=== PATIENT | male | born 1960 | race Caucasian/White ===

== ENCOUNTER 2018-08-15 18:43 | Inpatient (IN) | payer MEDICARE, OTHER ==
[~2018-08-15] VITALS: Ht 165.1 cm; Wt 66.0 kg
[2018-08-15] MEDS ORDERED: CARV6.2579 PO (20:28)
[2018-08-15] MEDS ORDERED: LOSA50TA14 PO (20:28)
[2018-08-15] MEDS ORDERED: CLON-379 PO (20:28)
[2018-08-15] MEDS ORDERED: SEVE800T7 PO (20:28)
[2018-08-15] MEDS ORDERED: TAMS0.4C2 PO (20:28)
[2018-08-15] MEDS ORDERED: NIFE90TA11 PO (20:28)
[2018-08-15] MEDS ORDERED: ISOS60TA PO (20:28)
[2018-08-15] MEDS ORDERED: MINO2.5T16 PO (20:28)
[2018-08-15] MEDS ORDERED: ATRO10DR OP (20:28)
[2018-08-15] MEDS ORDERED: FAMO20TA18 PO (20:28)
[2018-08-15] MEDS ORDERED: NICARDipine HCL 30 MG CAPSULE PO ONE (22:00)
[2018-08-15] MEDS ORDERED: SODIUM POLYSTYRENE 15 GM KIT (POWDER + SORBITOL) PO STA (22:58)
[2018-08-15] MEDS ORDERED: INSULIN REGULAR, HUMAN 100 UNIT/1 ML 3ML VIAL IVP STA (22:58)
[2018-08-15] MEDS ORDERED: ALBUTEROL 0.5% (NEB) 2.5 MG/0.5 ML AMP INH STA (22:58)
--- NOTE | 2018-08-15 22:58 | ERD ---
ER Documentation Chief Complaint Chief Complaint cough x2 months worse today. +eye discharge HPI 57-year-old male with a history of hypertension, diabetes, blindness, ESRD on hemodialysis presenting with nasal congestion, bilateral earache, and cough that started this morning. Per his family member at bedside, he has been coughing for the past 3 weeks without phlegm production or hemoptysis. No associated fevers or chills. No chest pain or shortness of breath. He had his last dialysis today. ROS All systems reviewed and are negative except as per history of present illness. Medications Home Meds Reported Medications Nifedipine* (Nifedipine ER*) 90 Mg Tablet.er, 90 MG PO DAILY, TAB 08/15/18 Carvedilol* (Carvedilol*) 6.25 Mg Tablet, 6.25 MG PO BID, #60 TAB 08/15/18 Isosorbide Mononitrate* (Isosorbide Mononitrate*) 60 Mg Tab.er.24h, 60 MG PO DAILY, TAB 08/15/18 Losartan Potassium* (Losartan Potassium*) 50 Mg Tablet, 50 MG PO DAILY, TAB 08/15/18 Minoxidil* (Lonitin*) 2.5 Mg Tab, 2.5 MG PO BID, TAB 08/15/18 Famotidine* (Famotidine*) 20 Mg Tablet, 20 MG PO BID, #60 TAB 08/15/18 Atropine Sulfate/0.9 %Sod Chlr (Atropine 0.01%-Ns Eye Drops) 10 Ml Drops, 15 ML OP BID, BOTTLE 08/15/18 Tamsulosin Hcl* (Tamsulosin Hcl*) 0.4 Mg Cap.er.24h, 0.4 MG PO DAILY, CAP 08/15/18 Clonidine Hcl* (Clonidine Hcl*) 0.1 Mg Tab, 0.2 MG PO BID PRN for ELEVATED BLOOD PRESSURE, TAB 08/15/18 Sevelamer Carbonate* (Renvela*) 800 Mg Tablet, 0.8 GM PO WITH MEALS, TAB 08/15/18 Allergies Allergies: Coded Allergies: hydralazine (Verified Allergy, Unknown, 08/15/18) simvastatin (Verified Allergy, Unknown, 08/15/18) PMhx/Soc History of Surgery: Yes (OPEN HEART SURGERY) Hx Cardiac Disorders: Yes (HTN, CAD, [place]) Hx Miscellaneous Medical Probl: Yes (DM, ESRD) Hx Alcohol Use: No Hx Substance Use: No Hx Tobacco Use: No Smoking Status: Never smoker FmHx Family History: No diabetes Physical Exam Vitals Vital Signs Date Temp Pulse Resp B/P (MAP) Pulse Ox O2 O2 Flow FiO2 Time Delivery Rate 08/15/18 60 20 96 21 23:15 08/15/18 64 32 185/79 100 Room Air 20:16 (114) 08/15/18 97.2 64 22 224/94 98 19:32 (137) Physical Exam Const: No acute distress. Ill-appearing but nontoxic Head: Atraumatic Eyes: Conjunctival injection with yellow discharge from the corners of bilateral eyes ENT: Normal External Ears, Nose and Mouth. TMs normal bilaterally. External canals normal bilaterally. Rhinorrhea. Neck: Full range of motion. No meningismus. No JVD Resp: Clear to auscultation bilaterally with no wheezing, rales, or rhonchi Cardio: Regular rate and rhythm, no murmurs Abd: Soft, non tender, non distended. Normal bowel sounds Skin: No petechiae or rashes Back: No midline or flank tenderness Ext: No cyanosis, or edema Neur: Awake and alert, normal speech, no facial asymmetry, moving all extremities Psych: Normal Mood and Affect Result Diagram: 08/15/18215508/15/182155 Results 24 hrs Laboratory Tests Test 08/15/18 21:56 08/15/18 23:32 08/16/18 00:16 White Blood Count 5.1 10^3/ul Red Blood Count 4.05 10^6/ul Hemoglobin 12.1 g/dl Hematocrit 37.3 % Mean Corpuscular Volume 92.1 fl Mean Corpuscular Hemoglobin 29.9 pg Mean Corpuscular 32.4 g/dl Hemoglobin Concent Red Cell Distribution Width 14.0 % Platelet Count 125 10^3/UL Mean Platelet Volume 10.0 fl Immature Granulocytes % 0.200 % Neutrophils % 65.6 % Lymphocytes % 16.1 % Monocytes % 8.4 % Eosinophils % 9.3 % Basophils % 0.4 % Nucleated Red Blood Cells % 0.0 /100WBC Immature Granulocytes # 0.010 10^3/ul Neutrophils # 3.4 10^3/ul Lymphocytes # 0.8 10^3/ul Monocytes # 0.4 10^3/ul Eosinophils # 0.5 10^3/ul Basophils # 0.0 10^3/ul Nucleated Red Blood Cells # 0.0 10^3/ul Sodium Level 137 mmol/L Potassium Level 6.3 mmol/L Chloride Level 102 mmol/L Carbon Dioxide Level 23 mmol/L Anion Gap 12 Blood Urea Nitrogen 57 mg/dl Creatinine 8.68 mg/dl Est Glomerular Filtrat Rate mL/min 6 mL/min Glucose Level 110 mg/dl Calcium Level 8.8 mg/dl Bedside Glucose 126 mg/dL 297 mg/dL Current Medications Medications Dose Sig/Katina Start Time Status Last (Trade) Ordered Route PRN Stop Time Admin Dose Reason Admin Nicardipine 30 mg ONCE ONCE 08/15/18 DC HCl PO 22:00 (Cardene) 08/15/18 22:01 Sodium 30 gm ONCE STAT 08/15/18 DC Polystyrene PO 22:58 Sulfonate 08/15/18 22:59 (Kayexelate 15 Gm Kit (Powder+Sorbi riya)) Albuterol 15 mg ONCE STAT 08/15/18 DC 08/15/18 (Proventil INH 22:58 23:12 0.5% (Neb)) 08/15/18 23:00 Insulin 10 unit ONCE STAT 08/15/18 DC 08/15/18 Human IVP 22:58 23:49 Regular 08/15/18 23:00 (Humulin R) Dextrose ONCE PRN 08/15/18 08/15/18 (D50w IV DECREASED 23:00 23:48 Syringe) GLUCOSE Dextrose 50 ml ONCE ONCE 08/15/18 DC 08/15/18 (D50w IV 23:00 23:48 Syringe) 08/15/18 23:01 Procedures/MDM EMERGENT LABS AND DIAGNOSTIC STUDIES: Lab Results above were reviewed and interpreted by me. CBC: Mild thrombocytopenia. No evidence of anemia or infection BMP: Evidence of renal failure with hyperkalemia. No evidence of acidosis. Influenza negative 12-lead EKG was interpreted by Joe Burnette MD: Sinus bradycardia 59 bpm Incomplete right bundle branch block No evidence of hyperkalemia. No acute ST or T wave changes suggestive of acute ischemia or STEMI. Radiology Results as interpreted by Radiology below were reviewed by Jarek Burnette MD: Chest x-ray: IMPRESSION: Mild cardiomegaly. Mild pulmonary vascular congestion. Calcified aorta consistent with atherosclerotic disease. 3.8 cm right lower lobe nodular opacity. Follow-up CT chest is recommended. Initial Nursing notes reviewed. Previous Medical Records requested via the Electronic Health Record. EMERGENCY DEPARTMENT COURSE / MEDICAL DECISION MAKING: Patient is presenting with complaints of congestion and cough. Vitals were nota ble for hypertension but otherwise he was afebrile. Labs showed evidence of ESRD with hyperkalemia despite hemodialysis today. Chest x-ray shows evidence of pulmonary vascular congestion and a right pulmonary nodule that is suspicious for possible malignancy. Hyperkalemia was treated with albuterol nebulized, IV insulin, IV dextrose, and Kayexalate. EKG did not have changes consistent with hyperkalemia. Patient will be admitted for further workup and treatment. I do not suspect serious bacterial infection. He likely has a viral URI. With regard to his pulmonary nodule, I will defer this to the inpatient team for workup as the patient will need contrast and dialysis soon after that. Critical Care Time: 35 minutes Treatments/Evaluations: Close monitoring and treatment of unstable vital signs, cardiorespiratory, and neurologic status, while maintaining tight balance of fluid, respiratory, and cardiac interventions. This time includes discussing the case with the patient and the patients family. This time does not include all procedures stated elsewhere in this record. This time also includes reviewing old records, labs and radiological studies. This time includes examining and re- examining the patient. Additionally, this time also includes arranging care with admitting and consulting physicians. Accepting Care Team: Current data and ongoing care discussed. Time: Time of admission Primary Provider: Dr. Huddleston Outstanding Data: none Departure Diagnosis: Primary Impression: Hyperkalemia Additional Impressions: URI (upper respiratory infection) URI type: unspecified URI Qualified Codes: J06.9 - Acute upper respiratory infection, unspecified Chronic cough Nodule of right lung Condition: Serious IRIS BURNETTE MD Aug 15, 2018 22:57
[2018-08-15] MEDS ORDERED: DEXTROSE 50% 50 ML SYRINGE IV ONE (23:00)
[2018-08-15] MEDS ORDERED: DEXTROSE 50% 50 ML SYRINGE IV PRN (23:00)
[2018-08-16] VITALS (23 sets, daily range): BP systolic 146–213; BP diastolic 72–94; PULSE 60–70; RESP 20–22; Ht 165.1 cm; Wt 66.0 kg
[2018-08-16] MEDS ORDERED: ACETAMINOPHEN 325 MG TAB PO PRN (02:30)
[2018-08-16] MEDS: MINOXIDIL 2.5 MG TAB PO SCH ×2 (08:12→20:08)
[2018-08-16] MEDS: ATROPINE 1% 5 ML OPH BOTH EYES SCH ×2 (08:12→20:09)
[2018-08-16] MEDS: FAMOTIDINE 20 MG TAB PO SCH ×2 (08:13→20:08)
[2018-08-16] MEDS: LOSARTAN 50 MG TAB PO SCH (08:13)
[2018-08-16] MEDS ORDERED: NIFEdipine (XL) 90 MG TAB PO SCH ×2 (09:00→21:00)
[2018-08-16] MEDS: ISOSORBIDE MONONITRATE(SR)60 MG TAB PO SCH (10:55)
[2018-08-16] MEDS ORDERED: BARIUM SULF 2% 450 ML BTL (BERRY SMOOTHIE) PO ONE (11:30)
[2018-08-16] MEDS ORDERED: VANCOMYCIN IV PER PHARMACY XX SCH (11:30)
--- NOTE | 2018-08-16 11:43 | CONS ---
Assessment/Plan Assessment/Plan Hospital Course (Demo Recall) 1. Hypertensive urgency/resistant hypertension 2. History of coronary artery disease 3. History of most likely SD and coronary artery bypass graft 4. Renal failure on dialysis 5. Pulmonary vascular congestion/fluid overload 6. Diabetes 7. Dyslipidemia 8. Hyperkalemia Recommendations: Continue with the Coreg Procardia. Clonidine will be continued as a as needed as well. Labs will be checked again stat now. Patient may need to be dialyzed again today given his hyperkalemia and fluid overload hypertension Echocardiogram will be checked Lipid panel will be checked tomorrow Hemodialysis as per renal workup of abnormal chest x-ray finding as per oncology and pulmonary consultants Thank you for his referral. We will continue to follow along with you NAHUN RUSSELL MD [facility] Consultation Date/Type/Reason Admit Date/Time Aug 16, 2018 at 00:15 Date of Consultation: Aug 16, 2018 Type of Consult Cardiology Reason for Consultation HTN Requesting Provider: COREY SARAVIA Date/Time of Note DATE: 08/16/18 TIME: 11:37 Hx of Present Illness Interventional cardiology consultation note Chief complaint: Cough Reason for consult: Coronary artery disease, hypertension History of present illness: Thank you for this referral. History was obtained from the patient who is a poor historian from discussion with physician staff. This is a unfortunate 57-year-old gentleman with history of renal failure on dialysis diabetes coronary artery disease status post coronary bypass graft who came to emergency room last night with complaint of shortness of breath and cough mostly. Patient is blind and is unable to exactly what color his sputum was but instead he has been coughing the past couple of days. Also states that his sister told him that his sputum was blood-tinged as well. He denies any chest pain or pressure to me denies any PND orthopnea to me. His blood pressure has been markedly elevated above 200. He denies any headache with it. Patient is a poor historian General Allergies: Reported to hydralazine and simvastatin details unclear Medications were reviewed as per medical reconciliation sheet Family history: Denies any history of early coronary artery disease Social history: Denies any tobacco alcohol drug abuse He said that his sister put his medication for him when he takes them Past medical history: Coronary artery disease status post SD probably status post bypass surgery probably about a year ago per his report unclear how many vessels were bypassed Hypertension Diabetes over 20 years Dyslipidemia Blindness most likely diabetic retinopathy Renal failure on hemodialysis over the past 4-5 years Review of system: Patient denies all others except for above-mentioned Past Medical History Home Meds Reported Medications Nifedipine* (Nifedipine ER*) 90 Mg Tablet.er, 90 MG PO DAILY, TAB 08/15/18 Carvedilol* (Carvedilol*) 6.25 Mg Tablet, 6.25 MG PO BID, #60 TAB 08/15/18 Isosorbide Mononitrate* (Isosorbide Mononitrate*) 60 Mg Tab.er.24h, 60 MG PO DAILY, TAB 08/15/18 Losartan Potassium* (Losartan Potassium*) 50 Mg Tablet, 50 MG PO DAILY, TAB 08/15/18 Minoxidil* (Lonitin*) 2.5 Mg Tab, 2.5 MG PO BID, TAB 08/15/18 Famotidine* (Famotidine*) 20 Mg Tablet, 20 MG PO BID, #60 TAB 08/15/18 Atropine Sulfate/0.9 %Sod Chlr (Atropine 0.01%-Ns Eye Drops) 10 Ml Drops, 15 ML OP BID, BOTTLE 08/15/18 Tamsulosin Hcl* (Tamsulosin Hcl*) 0.4 Mg Cap.er.24h, 0.4 MG PO DAILY, CAP 08/15/18 Clonidine Hcl* (Clonidine Hcl*) 0.1 Mg Tab, 0.2 MG PO BID PRN for ELEVATED BLOOD PRESSURE, TAB 08/15/18 Sevelamer Carbonate* (Renvela*) 800 Mg Tablet, 0.8 GM PO WITH MEALS, TAB 08/15/18 Medications Current Medications Dextrose (D50w Syringe) ONCE PRN IV DECREASED GLUCOSE Last administered on 08/15/18at 23:48; Admin Dose 50 ML; Start 08/15/18 at 23:00 Zolpidem Tartrate (Ambien) 5 mg HS PRN PO INSOMNIA; Start 08/16/18 at 02:30 Acetaminophen (Tylenol Tab) 650 mg Q4H PRN PO MILD PAIN(1-3)OR ELEVATED TEMP; Start 08/16/18 at 02:30 Atropine Sulfate (Atropine 1% Oph) 1 drop BID BOTH EYES Last administered on 08/16/18at 08:12; Admin Dose 1 DROP; Start 08/16/18 at 09:00 Famotidine (Pepcid) 20 mg BID PO Last administered on 08/16/18 08:13; Admin Dose 20 MG; Start 08/16/18 at 09:00 Minoxidil (Loniten) 2.5 mg BID PO Last administered on 08/16/18at 08:12; Admin Dose 2.5 MG; Start 08/16/18 at 09:00 Losartan Potassium (Cozaar) 50 mg DAILY PO Last administered on 08/16/18 08:13; Admin Dose 50 MG; Start 08/16/18 at 09:00 Carvedilol (Coreg) 6.25 mg BID PO Last administered on 08/16/18 08:12; Admin Dose 6.25 MG; Start 08/16/18 at 09:00 Nifedipine (Procardia Xl) 90 mg DAILY PO Last administered on 08/16/18 08:19; Admin Dose 90 MG; Start 08/16/18 at 09:00 Clonidine (Catapres) 0.1 mg Q4H PRN PO ELEVATED BLOOD PRESSURE Last administered on 08/16/18at 09:53; Admin Dose 0.1 MG; Start 08/16/18 at 08:30 Isosorbide Mononitrate (Imdur) 60 mg DAILY PO Last administered on 08/16/18at 10:55; Admin Dose 60 MG; Start 08/16/18 at 11:00 Vancomycin HCl (Vanco Iv Per Pharmacy) VANCOMYCIN PER PHARMACY PER PROTOCOL XX ; Start 08/16/18 at 11:30 Piperacillin Sod/ Tazobactam Sod 50 ml @ 200 mls/hr Q8 IVPB ; Start 08/16/18 at 14:00 Vancomycin HCl 1.5 gm/Sodium Chloride 250 ml @ 83.333 mls/ hr ONCE IVPB ; Start 08/16/18 at 13:00; Stop 08/16/18 at 15:59 Allergies: Coded Allergies: hydralazine (Verified Allergy, Unknown, 08/15/18) simvastatin (Verified Allergy, Unknown, 08/15/18) Social History Smoking Status: Never smoker Exam/Review of Systems Vital Signs Vitals Vital Signs Date Temp Pulse Resp B/P (MAP) Pulse Ox O2 O2 Flow FiO2 Time Delivery Rate 08/16/18 181/84 10:50 (116) 08/16/18 67 08:35 08/16/18 98.0 22 96 Room Air 07:37 08/15/18 21 23:15 Exam Exam General: no acute distress HEENT: NC/AT. . NECK: NO JVD. no stridor. CV: RRR. systolic murmur; no gallop or rubs. PULM: no wheezing or rhonchi. GI: SOFT, NT, ND, no rebound or guarding Extremity: trace B/L LE edema. no clubbing. neuro: awake and alert, OX3. Psych: calm and pleasant rectal: deferred : normal EKG was personally within normal sinus rhythm nonspecific ST abnormalities Chest x-ray shows: Mild cardiomegaly. Mild pulmonary vascular congestion. Calcified aorta consistent with atherosclerotic disease. 3.8 cm right lower lobe nodular opacity. Follow-up CT chest is recommended. Labs Result Diagram: 08/16/18 1107 08/15/18 2156 Results 24hrs Laboratory Tests Test 08/15/18 21:56 08/15/18 23:32 08/16/18 00:16 08/16/18 11:07 White Blood Count 5.1 4.0 #L Red Blood Count 4.05 L 3.80 L Hemoglobin 12.1 L 11.2 L Hematocrit 37.3 L 35.1 L Mean Corpuscular 92.1 92.4 Volume Mean Corpuscular 29.9 29.5 Hemoglobin Mean Corpuscular 32.4 31.9 L Hemoglobin Concent Red Cell 14.0 14.1 Distribution Width Platelet Count 125 L 110 L Mean Platelet Volume 10.0 11.1 H Immature 0.200 0.000 L Granulocytes % Neutrophils % 65.6 63.7 Lymphocytes % 16.1 16.3 Monocytes % 8.4 10.5 Eosinophils % 9.3 H 9.0 H Basophils % 0.4 0.5 Nucleated Red Blood 0.0 0.0 Cells % Immature 0.010 0.000 Granulocytes # Neutrophils # 3.4 2.6 Lymphocytes # 0.8 0.7 L Monocytes # 0.4 0.4 Eosinophils # 0.5 0.4 Basophils # 0.0 0.0 Nucleated Red Blood 0.0 0.0 Cells # Sodium Level 137 Potassium Level 6.3 *H Chloride Level 102 Carbon Dioxide Level 23 Anion Gap 12 Blood Urea Nitrogen 57 H Creatinine 8.68 H Est Glomerular 6 L Filtrat Rate mL/min Glucose Level 110 Calcium Level 8.8 Bedside Glucose 126 297 H Medications Medications Current Medications Dextrose (D50w Syringe) ONCE PRN IV DECREASED GLUCOSE Last administered on 08/15/18at 23:48; Admin Dose 50 ML; Start 08/15/18 at 23:00 Zolpidem Tartrate (Ambien) 5 mg HS PRN PO INSOMNIA; Start 08/16/18 at 02:30 Acetaminophen (Tylenol Tab) 650 mg Q4H PRN PO MILD PAIN(1-3)OR ELEVATED TEMP; Start 08/16/18 at 02:30 Atropine Sulfate (Atropine 1% Oph) 1 drop BID BOTH EYES Last administered on 08/16/18 08:12; Admin Dose 1 DROP; Start 08/16/18 at 09:00 Famotidine (Pepcid) 20 mg BID PO Last administered on 08/16/18 08:13; Admin Dose 20 MG; Start 08/16/18 at 09:00 Minoxidil (Loniten) 2.5 mg BID PO Last administered on 08/16/18 08:12; Admin Dose 2.5 MG; Start 08/16/18 at 09:00 Losartan Potassium (Cozaar) 50 mg DAILY PO Last administered on 08/16/18at 08:13; Admin Dose 50 MG; Start 08/16/18 at 09:00 Carvedilol (Coreg) 6.25 mg BID PO Last administered on 08/16/18 08:12; Admin Dose 6.25 MG; Start 08/16/18 at 09:00 Nifedipine (Procardia Xl) 90 mg DAILY PO Last administered on 08/16/18 08:19; Admin Dose 90 MG; Start 08/16/18 at 09:00 Clonidine (Catapres) 0.1 mg Q4H PRN PO ELEVATED BLOOD PRESSURE Last administered on 08/16/18at 09:53; Admin Dose 0.1 MG; Start 08/16/18 at 08:30 Isosorbide Mononitrate (Imdur) 60 mg DAILY PO Last administered on 08/16/18at 10:55; Admin Dose 60 MG; Start 08/16/18 at 11:00 Vancomycin HCl (Vanco Iv Per Pharmacy) VANCOMYCIN PER PHARMACY PER PROTOCOL XX ; Start 08/16/18 at 11:30 Piperacillin Sod/ Tazobactam Sod 50 ml @ 200 mls/hr Q8 IVPB ; Start 08/16/18 at 14:00 Vancomycin HCl 1.5 gm/Sodium Chloride 250 ml @ 83.333 mls/ hr ONCE IVPB ; Start 08/16/18 at 13:00; Stop 08/16/18 at 15:59 NAHUN RUSSELL MD Aug 16, 2018 11:43
--- NOTE | 2018-08-16 11:52 | HP ---
Date/Time of Note Date/Time of Note DATE: 08/16/18 TIME: 10:52 Assessment/Plan VTE Prophylaxis Risk score (from Ns)>0 risk: 1 SCD applied (from Ns): Yes Pharmacological prophylaxis: other Pharm contraindication: other Lines/Catheters IV Catheter Type (from Nrsg): Central line still needed: Yes (HD access) Urinary Cath still in place: No Assessment/Plan Assessment/Plan # URI (upper respiratory infection) - ADMIT TO tele - see admission orders; resume home meds - ID consult- Dr Ariza notified # Hyperkalemia-6.3 OF 08/15/2018 - will do stat cMP # Fluid overload- may need HD # Sinus Bradycardia - cardio follows - tele monitoring # -Hypertension urgency - cardiac consult- Dr Garcia notified # Pulmonary congestion - pulm consult- dr Olson notified # Chronic cough possibly sec to renal fail; right lung node - Pulm follows # 3.8 CM Nodule of right lung - Hem / Onc consult-DR Ramirez notified - will order CT C/A/p w/IV/PO contrast - CEA # DRUG ALLERGY -hydralazine -simvastatin # SP Open Heart bypass surgery probably about a year ago per his report unclear how many vessels were bypassed # Coronary artery disease status post Myocardial Infarction probably # Dyslipidemia # Myocardial Infarction # Diabetes over 20 years ago - renal/cardio/carb control diet - Glycemic control - Dietary consult -communication center operator consult # ESRD- Renal failure on hemodialysis over the past 4-5 years - nephro consult- Dr Ortez notified # Blindness most likely diabetic retinopathy # SCD for DVT prophylaxes # Protonix fro GI prophylaxis Patientn seen in collaboration with Dr Reagan. Plan of care staff. Result Diagram: [id number] Results 24hrs Laboratory Tests Test 08/15/18 21:56 08/15/18 23:32 08/16/18 00:16 White Blood Count 5.1 Red Blood Count 4.05 L Hemoglobin 12.1 L Hematocrit 37.3 L Mean Corpuscular Volume 92.1 Mean Corpuscular Hemoglobin 29.9 Mean Corpuscular Hemoglobin Concent 32.4 Red Cell Distribution Width 14.0 Platelet Count 125 L Mean Platelet Volume 10.0 Immature Granulocytes % 0.200 Neutrophils % 65.6 Lymphocytes % 16.1 Monocytes % 8.4 Eosinophils % 9.3 H Basophils % 0.4 Nucleated Red Blood Cells % 0.0 Immature Granulocytes # 0.010 Neutrophils # 3.4 Lymphocytes # 0.8 Monocytes # 0.4 Eosinophils # 0.5 Basophils # 0.0 Nucleated Red Blood Cells # 0.0 Sodium Level 137 Potassium Level 6.3 *H Chloride Level 102 Carbon Dioxide Level 23 Anion Gap 12 Blood Urea Nitrogen 57 H Creatinine 8.68 H Est Glomerular Filtrat Rate mL/min 6 L Glucose Level 110 Calcium Level 8.8 Bedside Glucose 126 297 H CBC: Mild thrombocytopenia. No evidence of anemia or infection BMP: Evidence of renal failure with hyperkalemia. No evidence of acidosis. Influenza negative 12-lead EKG Sinus bradycardia 59 bpm Incomplete right bundle branch block No evidence of hyperkalemia. No acute ST or T wave changes suggestive of acute ischemia or STEMI. Chest x-ray: IMPRESSION: Mild cardiomegaly. Mild pulmonary vascular congestion. Calcified aorta consistent with atherosclerotic disease. 3.8 cm right lower lobe nodular opacity. Follow-up CT chest is recommended. HPI/ROS Admit Date/Time Admit Date/Time Aug 16, 2018 at 00:15 Hx of Present Illness cough x2 months worse today. +eye discharge HPI This is a unfortunate 57-year-old gentleman with history of hypertension, blindness, renal failure on dialysis diabetes coronary artery disease status post coronary bypass graft . Patient is admitted with complaint of shortness of breath, cough with phlegm, nasal congestion, bilateral earache, started this morning. Patient is blind and is unable to exactly what color his sputum was but instead he has been coughing the past couple of days. He denies any chest pain or pressure to me denies any PND orthopnea to me.monty or chills. Denies chest pain or shortness of breath. His blood pressure reported is SBP 200 and patient denies any headache. Patient had HD yesterday, K was 5.3 yesterday; no labs available today. Stat CMP, CBC is ordered- will followup. DW Dr Garcia- web marketing analyst; Currency Examiner Dr Brooklynn Ortez- will order HD today; Drop Forger Helper/ Oncologist- Dr Ramirez; CT chest/CT a/p ordered.Consulted ID - Dr Shine; Pulm - Dr Martell. Patient is admitted under Dr PUGH All systems reviewed and are negative except as per history of present illness. Medications Home Meds Reported Medications Nifedipine* (Nifedipine ER*) 90 Mg Tablet.er, 90 MG PO DAILY, TAB 08/15/18 Carvedilol* (Carvedilol*) 6.25 Mg Tablet, 6.25 MG PO BID, #60 TAB 08/15/18 Isosorbide Mononitrate* (Isosorbide Mononitrate*) 60 Mg Tab.er.24h, 60 MG PO DAILY, TAB 08/15/18 Losartan Potassium* (Losartan Potassium*) 50 Mg Tablet, 50 MG PO DAILY, TAB 08/15/18 Minoxidil* (Lonitin*) 2.5 Mg Tab, 2.5 MG PO BID, TAB 08/15/18 Famotidine* (Famotidine*) 20 Mg Tablet, 20 MG PO BID, #60 TAB 08/15/18 Atropine Sulfate/0.9 %Sod Chlr (Atropine 0.01%-Ns Eye Drops) 10 Ml Drops, 15 ML OP BID, BOTTLE 08/15/18 Tamsulosin Hcl* (Tamsulosin Hcl*) 0.4 Mg Cap.er.24h, 0.4 MG PO DAILY, CAP 08/15/18 Clonidine Hcl* (Clonidine Hcl*) 0.1 Mg Tab, 0.2 MG PO BID PRN for ELEVATED BLOOD PRESSURE, TAB 08/15/18 Sevelamer Carbonate* (Renvela*) 800 Mg Tablet, 0.8 GM PO WITH MEALS, TAB 08/15/18 Allergies hydralazine (Verified Allergy, Unknown, 08/15/18) simvastatin (Verified Allergy, Unknown, 08/15/18) ROS Eyes: visual change ENT: no complaints Respiratory: no complaints Cardiovascular: no complaints Gastrointestinal: no complaints Genitourinary: no complaints Musculoskeletal: other (weakness) Neurologic: no complaints Psychological: nl mood/affect Immunologic: rhinitis PMH/Family/Social Past Medical History PMhx/PSx/ Social Hx History of Surgery: Yes --SP Open Heart bypass surgery probably about a year ago per his report unclear how many vessels were bypassed Hx ENT Disorders: Blindness most likely diabetic retinopathy Hx Cardiac Disorders: Yes - -Hypertension -Dyslipidemia -Coronary artery disease status post CO probably Hx Miscellaneous Medical Probl: Yes -Diabetes over 20 years ago; -ESRD- Renal failure on hemodialysis over the past 4-5 years Hx Alcohol Use: No Hx Substance Use: No Hx Tobacco Use: No Smoking Status: Never smoker FmHx Family History: No diabetes, Denies any history of early coronary artery disease Social Hx Social history: Denies any tobacco alcohol drug abuse He stated that his sister him to take meds Medications Current Medications Dextrose (D50w Syringe) ONCE PRN IV DECREASED GLUCOSE Last administered on 08/15/18at 23:48; Admin Dose 50 ML; Start 08/15/18 at 23:00 Zolpidem Tartrate (Ambien) 5 mg HS PRN PO INSOMNIA; Start 08/16/18 at 02:30 Acetaminophen (Tylenol Tab) 650 mg Q4H PRN PO MILD PAIN(1-3)OR ELEVATED TEMP; Start 08/16/18 at 02:30 Atropine Sulfate (Atropine 1% Oph) 1 drop BID BOTH EYES Last administered on 08/16/18at 08:12; Admin Dose 1 DROP; Start 08/16/18 at 09:00 Famotidine (Pepcid) 20 mg BID PO Last administered on 08/16/18at 08:13; Admin Dose 20 MG; Start 08/16/18 at 09:00 Minoxidil (Loniten) 2.5 mg BID PO Last administered on 08/16/18 08:12; Admin Dose 2.5 MG; Start 08/16/18 at 09:00 Losartan Potassium (Cozaar) 50 mg DAILY PO Last administered on 08/16/18 08:13; Admin Dose 50 MG; Start 08/16/18 at 09:00 Carvedilol (Coreg) 6.25 mg BID PO Last administered on 08/16/18 08:12; Admin Dose 6.25 MG; Start 08/16/18 at 09:00 Nifedipine (Procardia Xl) 90 mg DAILY PO Last administered on 08/16/18 08:19; Admin Dose 90 MG; Start 08/16/18 at 09:00 Clonidine (Catapres) 0.1 mg Q4H PRN PO ELEVATED BLOOD PRESSURE Last administered on 08/16/18 09:53; Admin Dose 0.1 MG; Start 08/16/18 at 08:30 Coded Allergies: hydralazine (Verified Allergy, Unknown, 08/15/18) simvastatin (Verified Allergy, Unknown, 08/15/18) Past Surgical History -SP bypass surgery probably about a year ago per his report unclear how many vessels were bypassed Family History Significant Family History: no pertinent family hx Social History Alcohol Use: none Smoking Status: Never smoker Exam/Review of Systems Vital Signs Vitals Vital Signs Date Temp Pulse Resp B/P (MAP) Pulse Ox O2 O2 Flow FiO2 Time Delivery Rate 08/16/18 213/94 09:50 (133) 08/16/18 67 08:35 08/16/18 98.0 22 96 Room Air 07:37 08/15/18 21 23:15 Exam Constitutional: alert, well developed Psych: nl mood/affect Head: normocephalic Eyes: nl lids, nl sclera, other (blindness) ENMT: nl external ears & nose Neck: non-tender Respiratory: diminished breath sounds (bilaterally) Cardiovascular: nl pulses, other (s1s2) Gastrointestinal: soft, non-tender Musculoskeletal: muscle weakness Extremities: normal pulses 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: nl speech, other (alert/responsive) Skin: other (no rashes noted) Lymph: nontender COREY SARAVIA Aug 16, 2018 11:02
--- NOTE | 2018-08-16 12:22 | CONS ---
Assessment/Plan Assessment/Plan Assessment/Plan (Daily) 1. acute hyperkalemia 2. ESRD on HD MWF 3. accelerateD HTN 4. acute chest pain 5.type II DM with hyperglycemia 6. H/o HTN Plan: Nifedipine 60mg pO BID, Plan for HD today with 2 K bath, Continue other BP meds will order another session of HD today and tomorrow Thanks for consultation, I will continue to follow up Consultation Date/Type/Reason Admit Date/Time Aug 16, 2018 at 00:15 Date of Consultation: Aug 16, 2018 Type of Consult NEPHROLOGY Reason for Consultation ESRD on HD with acute hyperklaemia Requesting Provider: HARMONY PETERSON MD Date/Time of Note DATE: 08/16/18 TIME: 12:22 Hx of Present Illness 57-year-old male with a history of hypertension, diabetes, blindness, ESRD on hemodialysis presenting with nasal congestion, bilateral earache, and cough that started this morning. He gets admitted for URI/bronchitis symptoms, K was 6.3 on admisison pt has been started on IV abx, and renal has been consulted for Acute hyperkalemia and Need for HD BP has been systolic 180-190s, Constitutional: no complaints Eyes: no complaints ENT: congestion Respiratory: cough, pleuritic pain Cardiovascular: no complaints Gastrointestinal: no complaints Genitourinary: no complaints Musculoskeletal: no complaints Skin: no complaints Neurologic: no complaints Endocrine: no complaints Lymphatic: no complaints Psychological: no complaints Immunologic: no complaints Past Medical History Medical History: diabetes, high cholesterol, hypertension, other (ESRD on HD, Blindness ) Home Meds Reported Medications Nifedipine* (Nifedipine ER*) 90 Mg Tablet.er, 90 MG PO DAILY, TAB 08/15/18 Carvedilol* (Carvedilol*) 6.25 Mg Tablet, 6.25 MG PO BID, #60 TAB 08/15/18 Isosorbide Mononitrate* (Isosorbide Mononitrate*) 60 Mg Tab.er.24h, 60 MG PO DAILY, TAB 08/15/18 Losartan Potassium* (Losartan Potassium*) 50 Mg Tablet, 50 MG PO DAILY, TAB 08/15/18 Minoxidil* (Lonitin*) 2.5 Mg Tab, 2.5 MG PO BID, TAB 08/15/18 Famotidine* (Famotidine*) 20 Mg Tablet, 20 MG PO BID, #60 TAB 08/15/18 Atropine Sulfate/0.9 %Sod Chlr (Atropine 0.01%-Ns Eye Drops) 10 Ml Drops, 15 ML OP BID, BOTTLE 08/15/18 Tamsulosin Hcl* (Tamsulosin Hcl*) 0.4 Mg Cap.er.24h, 0.4 MG PO DAILY, CAP 08/15/18 Clonidine Hcl* (Clonidine Hcl*) 0.1 Mg Tab, 0.2 MG PO BID PRN for ELEVATED BLOOD PRESSURE, TAB 08/15/18 Sevelamer Carbonate* (Renvela*) 800 Mg Tablet, 0.8 GM PO WITH MEALS, TAB 08/15/18 Medications Current Medications Dextrose (D50w Syringe) ONCE PRN IV DECREASED GLUCOSE Last administered on 08/15/18at 23:48; Admin Dose 50 ML; Start 08/15/18 at 23:00 Zolpidem Tartrate (Ambien) 5 mg HS PRN PO INSOMNIA; Start 08/16/18 at 02:30 Acetaminophen (Tylenol Tab) 650 mg Q4H PRN PO MILD PAIN(1-3)OR ELEVATED TEMP; Start 08/16/18 at 02:30 Atropine Sulfate (Atropine 1% Oph) 1 drop BID BOTH EYES Last administered on 08/16/18 08:12; Admin Dose 1 DROP; Start 08/16/18 at 09:00 Famotidine (Pepcid) 20 mg BID PO Last administered on 08/16/18 08:13; Admin Dose 20 MG; Start 08/16/18 at 09:00 Minoxidil (Loniten) 2.5 mg BID PO Last administered on 08/16/18 08:12; Admin Dose 2.5 MG; Start 08/16/18 at 09:00 Losartan Potassium (Cozaar) 50 mg DAILY PO Last administered on 08/16/18 08:13; Admin Dose 50 MG; Start 08/16/18 at 09:00 Carvedilol (Coreg) 6.25 mg BID PO Last administered on 08/16/18 08:12; Admin Dose 6.25 MG; Start 08/16/18 at 09:00 Clonidine (Catapres) 0.1 mg Q4H PRN PO ELEVATED BLOOD PRESSURE Last administered on 08/16/18 09:53; Admin Dose 0.1 MG; Start 08/16/18 at 08:30 Isosorbide Mononitrate (Imdur) 60 mg DAILY PO Last administered on 08/16/18at 10:55; Admin Dose 60 MG; Start 08/16/18 at 11:00 Vancomycin HCl (Vanco Iv Per Pharmacy) VANCOMYCIN PER PHARMACY PER PROTOCOL XX ; Start 08/16/18 at 11:30 Piperacillin Sod/ Tazobactam Sod 50 ml @ 200 mls/hr Q8 IVPB ; Start 08/16/18 at 14:00 Vancomycin HCl 1.5 gm/Sodium Chloride 250 ml @ 83.333 mls/ hr ONCE IVPB ; Start 08/16/18 at 13:00; Stop 08/16/18 at 15:59 Nifedipine (Procardia Xl) 90 mg BID PO ; Start 08/16/18 at 21:00 Allergies: Coded Allergies: hydralazine (Verified Allergy, Unknown, 08/15/18) simvastatin (Verified Allergy, Unknown, 08/15/18) Past Surgical History Past Surgical Hx: other (Permacath ) Family History Significant Family History: no pertinent family hx Social History Alcohol Use: none Smoking Status: Never smoker Drug Use: none Exam/Review of Systems Exam Vitals Vital Signs Date Temp Pulse Resp B/P (MAP) Pulse Ox O2 O2 Flow FiO2 Time Delivery Rate 08/16/18 98.9 61 22 188/82 96 Room Air 11:43 (117) 08/15/18 21 23:15 Constitutional: alert Psych: no complaints Head: normocephalic Eyes: nl conjunctiva ENMT: nl external ears & nose Neck: supple, non-tender Respiratory: clear to auscultation, normal air movement, diminished breath sounds Cardiovascular: regular rate and rhythm, nl pulses Gastrointestinal: soft, non-tender Musculoskeletal: muscle tone, swelling Extremities: normal pulses 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: DEALER SALES MANAGER II-XII intact, nl mental status, nl speech, nl strength Lymph: nl lymph nodes Results Result Diagram: 08/16/18 1107 08/16/18 1107 Results 24hrs Laboratory Tests Test 08/15/18 21:56 08/15/18 23:32 08/16/18 00:16 08/16/18 11:07 White Blood Count 5.1 4.0 #L Red Blood Count 4.05 L 3.80 L Hemoglobin 12.1 L 11.2 L Hematocrit 37.3 L 35.1 L Mean Corpuscular 92.1 92.4 Volume Mean Corpuscular 29.9 29.5 Hemoglobin Mean Corpuscular 32.4 31.9 L Hemoglobin Concent Red Cell 14.0 14.1 Distribution Width Platelet Count 125 L 110 L Mean Platelet Volume 10.0 11.1 H Immature 0.200 0.000 L Granulocytes % Neutrophils % 65.6 63.7 Lymphocytes % 16.1 16.3 Monocytes % 8.4 10.5 Eosinophils % 9.3 H 9.0 H Basophils % 0.4 0.5 Nucleated Red Blood 0.0 0.0 Cells % Immature 0.010 0.000 Granulocytes # Neutrophils # 3.4 2.6 Lymphocytes # 0.8 0.7 L Monocytes # 0.4 0.4 Eosinophils # 0.5 0.4 Basophils # 0.0 0.0 Nucleated Red Blood 0.0 0.0 Cells # Sodium Level 137 139 Potassium Level 6.3 *H 5.8 H Chloride Level 102 104 Carbon Dioxide Level 23 23 Anion Gap 12 12 Blood Urea Nitrogen 57 H 67 H Creatinine 8.68 H 9.72 H Est Glomerular 6 L 6 L Filtrat Rate mL/min Glucose Level 110 141 Calcium Level 8.8 8.6 Bedside Glucose 126 297 H Medications Medication Current Medications Dextrose (D50w Syringe) ONCE PRN IV DECREASED GLUCOSE Last administered on 08/15/18at 23:48; Admin Dose 50 ML; Start 08/15/18 at 23:00 Zolpidem Tartrate (Ambien) 5 mg HS PRN PO INSOMNIA; Start 08/16/18 at 02:30 Acetaminophen (Tylenol Tab) 650 mg Q4H PRN PO MILD PAIN(1-3)OR ELEVATED TEMP; Start 08/16/18 at 02:30 Atropine Sulfate (Atropine 1% Oph) 1 drop BID BOTH EYES Last administered on 08/16/18 08:12; Admin Dose 1 DROP; Start 08/16/18 at 09:00 Famotidine (Pepcid) 20 mg BID PO Last administered on 08/16/18at 08:13; Admin Dose 20 MG; Start 08/16/18 at 09:00 Minoxidil (Loniten) 2.5 mg BID PO Last administered on 08/16/18at 08:12; Admin Dose 2.5 MG; Start 08/16/18 at 09:00 Losartan Potassium (Cozaar) 50 mg DAILY PO Last administered on 08/16/18at 0 8:13; Admin Dose 50 MG; Start 08/16/18 at 09:00 Carvedilol (Coreg) 6.25 mg BID PO Last administered on 08/16/18at 08:12; Admin Dose 6.25 MG; Start 08/16/18 at 09:00 Clonidine (Catapres) 0.1 mg Q4H PRN PO ELEVATED BLOOD PRESSURE Last administered on 08/16/18at 09:53; Admin Dose 0.1 MG; Start 08/16/18 at 08:30 Isosorbide Mononitrate (Imdur) 60 mg DAILY PO Last administered on 08/16/18at 10:55; Admin Dose 60 MG; Start 08/16/18 at 11:00 Vancomycin HCl (Vanco Iv Per Pharmacy) VANCOMYCIN PER PHARMACY PER PROTOCOL XX ; Start 08/16/18 at 11:30 Piperacillin Sod/ Tazobactam Sod 50 ml @ 200 mls/hr Q8 IVPB ; Start 08/16/18 at 14:00 Vancomycin HCl 1.5 gm/Sodium Chloride 250 ml @ 83.333 mls/ hr ONCE IVPB ; Start 08/16/18 at 13:00; Stop 08/16/18 at 15:59 Nifedipine (Procardia Xl) 90 mg BID PO ; Start 08/16/18 at 21:00 VALERIA RODRÍGUEZ MD Aug 16, 2018 12:22
[2018-08-16] MEDS ORDERED: SODIUM CHLORIDE 0.9% 1L BAG IV PRN (12:30)
[2018-08-16] MEDS ORDERED: ALBUMIN HUMAN 25% 100 ML IV PRN (12:30)
[2018-08-16] MEDS ORDERED: VANCOMYCIN HCL 1.5 GM in SOD CHLORIDE 0.9% 250 ML IVPB SCH (13:00)
--- NOTE | 2018-08-16 13:18 | CONS ---
Assessment/Plan Assessment/Plan Hospital Course (Demo Recall) assessment - URI, possible sinusitis, otitis - L retro-orbital pain and L corneal opacity (plus eye discharge according to Pt's RN's note), possible keratitis - b/l blindness - nodular density of RLL on CXR 08/15/2018 - DM - CAD - h/o NM - h/o CABG - ESRD on HD recommendations - ordered: resp culture, blood cultures (to draw during HD), CT orbit, quantiferon TB old, cocciserology - will review the result of CT orbit, C/A/P - continue IV vancomycin, pip/tazo (08/15/2018-) - add tobramycin eye drop (06/15/2019-) - continue empiric IV vanc and pip/tazo (08/15/2018-) - I recommend ophthalmology CS if needed Consultation Date/Type/Reason Admit Date/Time Aug 16, 2018 at 00:15 Date of Consultation: Aug 16, 2018 Type of Consult ID Reason for Consultation URI, sinusitis and otitis Requesting Provider: COREY SARAVIA Date/Time of Note DATE: 08/16/18 TIME: 12:55 Hx of Present Illness This is a 57 yo male with DM, CAD, ESRD on HD, b/l blindness who presented at ER on 08/15/2018 c/o sudden onset congestion, b/l earache, and L retro-orbital pain. He also c/o congested cough but denies fever, chills or GI Sx. Pt was also reported to be c/o discharge from his eyes but Pt denies this part of histoy to me. Pt's CXR at ER showed R nodular density. Pt denies h/o TB, exposure to a Pt with TB. Pt does not recall the last TB test. Pt is waiting for CT C/A/P. IV vancomycin and pip/tazo were started. JANI Saravia requested ID consultation on this Pt. Constitutional: No chills, No diaphoresis, No febrile Eyes: other (b/l blindness) ENT: pain (b/l ear), congestion, other (congestion of the throat and nose) Respiratory: cough, sputum Cardiovascular: no complaints Gastrointestinal: no complaints Genitourinary: other (on HD) Musculoskeletal: no complaints Skin: no complaints Neurologic: other (L retro-orbital pain) Past Medical History Medical History: coronary artery disease, diabetes, hypertension, renal disease, other (NM, blindness) Home Meds Reported Medications Nifedipine* (Nifedipine ER*) 90 Mg Tablet.er, 90 MG PO DAILY, TAB 08/15/18 Carvedilol* (Carvedilol*) 6.25 Mg Tablet, 6.25 MG PO BID, #60 TAB 08/15/18 Isosorbide Mononitrate* (Isosorbide Mononitrate*) 60 Mg Tab.er.24h, 60 MG PO DAILY, TAB 08/15/18 Losartan Potassium* (Losartan Potassium*) 50 Mg Tablet, 50 MG PO DAILY, TAB 08/15/18 Minoxidil* (Lonitin*) 2.5 Mg Tab, 2.5 MG PO BID, TAB 08/15/18 Famotidine* (Famotidine*) 20 Mg Tablet, 20 MG PO BID, #60 TAB 08/15/18 Atropine Sulfate/0.9 %Sod Chlr (Atropine 0.01%-Ns Eye Drops) 10 Ml Drops, 15 ML OP BID, BOTTLE 08/15/18 Tamsulosin Hcl* (Tamsulosin Hcl*) 0.4 Mg Cap.er.24h, 0.4 MG PO DAILY, CAP 08/15/18 Clonidine Hcl* (Clonidine Hcl*) 0.1 Mg Tab, 0.2 MG PO BID PRN for ELEVATED BLOOD PRESSURE, TAB 08/15/18 Sevelamer Carbonate* (Renvela*) 800 Mg Tablet, 0.8 GM PO WITH MEALS, TAB 08/15/18 Medications Current Medications Dextrose (D50w Syringe) ONCE PRN IV DECREASED GLUCOSE Last administered on 08/15/18at 23:48; Admin Dose 50 ML; Start 08/15/18 at 23:00 Zolpidem Tartrate (Ambien) 5 mg HS PRN PO INSOMNIA; Start 08/16/18 at 02:30 Acetaminophen (Tylenol Tab) 650 mg Q4H PRN PO MILD PAIN(1-3)OR ELEVATED TEMP; Start 08/16/18 at 02:30 Atropine Sulfate (Atropine 1% Oph) 1 drop BID BOTH EYES Last administered on 08/16/18at 08:12; Admin Dose 1 DROP; Start 08/16/18 at 09:00 Famotidine (Pepcid) 20 mg BID PO Last administered on 08/16/18 08:13; Admin Dose 20 MG; Start 08/16/18 at 09:00 Minoxidil (Loniten) 2.5 mg BID PO Last administered on 08/16/18at 08:12; Admin Dose 2.5 MG; Start 08/16/18 at 09:00 Losartan Potassium (Cozaar) 50 mg DAILY PO Last administered on 08/16/18 08:13; Admin Dose 50 MG; Start 08/16/18 at 09:00 Carvedilol (Coreg) 6.25 mg BID PO Last administered on 08/16/18 08:12; Admin Dose 6.25 MG; Start 08/16/18 at 09:00 Clonidine (Catapres) 0.1 mg Q4H PRN PO ELEVATED BLOOD PRESSURE Last administered on 08/16/18at 09:53; Admin Dose 0.1 MG; Start 08/16/18 at 08:30 Isosorbide Mononitrate (Imdur) 60 mg DAILY PO Last administered on 08/16/18at 10:55; Admin Dose 60 MG; Start 08/16/18 at 11:00 Vancomycin HCl (Vanco Iv Per Pharmacy) VANCOMYCIN PER PHARMACY PER PROTOCOL XX ; Start 08/16/18 at 11:30 Piperacillin Sod/ Tazobactam Sod 50 ml @ 200 mls/hr Q8 IVPB ; Start 08/16/18 at 14:00 Vancomycin HCl 1.5 gm/Sodium Chloride 250 ml @ 83.333 mls/ hr ONCE IVPB Last administered on 08/16/18at 12:25; Admin Dose 83.333 MLS/HR; Start 08/16/18 at 13:00; Stop 08/16/18 at 15:59 Heparin Sodium (Porcine) (Heparin (1000 Units/ml)) 4,000 unit AFTER DIALYSIS CATHETER ; Start 08/16/18 at 12:30 Albumin Human 100 ml @ 100 mls/hr WITH DIALYSIS PRN IV SBP <90 DURING DIALYSIS; Start 08/16/18 at 12:30 Sodium Chloride (NS) -To prime the dialy... DIRECTED FOR HD PRN IV HD; Start 08/16/18 at 12:30 Nifedipine (Procardia Xl) 60 mg BID PO ; Start 08/16/18 at 21:00 Allergies: Coded Allergies: hydralazine (Verified Allergy, Unknown, 08/15/18) simvastatin (Verified Allergy, Unknown, 08/15/18) Past Surgical History Past Surgical Hx: coronary bypass surgery Social History Alcohol Use: none Smoking Status: Never smoker Drug Use: none Exam/Review of Systems Exam Vitals Vital Signs Date Temp Pulse Resp B/P (MAP) Pulse Ox O2 O2 Flow FiO2 Time Delivery Rate 08/16/18 62 12:37 08/16/18 98.9 22 188/82 96 Room Air 11:43 (117) 08/15/18 21 23:15 Constitutional: alert Psych: no complaints, nl mood/affect Head: normocephalic, atraumatic Eyes: other (+L cornea is cloudy) ENMT: nl external ears & nose, nl lips & teeth, nl nasal mucosa & septum, other (b/l ears and sinuses are non-TTP) Neck: supple, non-tender Respiratory: crackles/rales (b/l RLL>LLL) Cardiovascular: regular rate and rhythm, nl pulses Gastrointestinal: soft, non-tender; No distended Musculoskeletal: nl extremities to inspection Extremities: No edema 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: BOTTLE LABEL INSPECTOR II-XII intact, nl mental status Skin: nl turgor; No rash or lesions Results Result Diagram: 08/16/18 1107 08/16/18 1107 Results 24hrs Laboratory Tests Test 08/15/18 21:56 08/15/18 23:32 08/16/18 00:16 08/16/18 11:07 White Blood Count 5.1 4.0 #L Red Blood Count 4.05 L 3.80 L Hemoglobin 12.1 L 11.2 L Hematocrit 37.3 L 35.1 L Mean Corpuscular 92.1 92.4 Volume Mean Corpuscular 29.9 29.5 Hemoglobin Mean Corpuscular 32.4 31.9 L Hemoglobin Concent Red Cell 14.0 14.1 Distribution Width Platelet Count 125 L 110 L Mean Platelet Volume 10.0 11.1 H Immature 0.200 0.000 L Granulocytes % Neutrophils % 65.6 63.7 Lymphocytes % 16.1 16.3 Monocytes % 8.4 10.5 Eosinophils % 9.3 H 9.0 H Basophils % 0.4 0.5 Nucleated Red Blood 0.0 0.0 Cells % Immature 0.010 0.000 Granulocytes # Neutrophils # 3.4 2.6 Lymphocytes # 0.8 0.7 L Monocytes # 0.4 0.4 Eosinophils # 0.5 0.4 Basophils # 0.0 0.0 Nucleated Red Blood 0.0 0.0 Cells # Sodium Level 137 139 Potassium Level 6.3 *H 5.8 H Chloride Level 102 104 Carbon Dioxide Level 23 23 Anion Gap 12 12 Blood Urea Nitrogen 57 H 67 H Creatinine 8.68 H 9.72 H Est Glomerular 6 L 6 L Filtrat Rate mL/min Glucose Level 110 141 Calcium Level 8.8 8.6 Bedside Glucose 126 297 H Medications Medication Current Medications Dextrose (D50w Syringe) ONCE PRN IV DECREASED GLUCOSE Last administered on 08/15/18 23:48; Admin Dose 50 ML; Start 08/15/18 at 23:00 Zolpidem Tartrate (Ambien) 5 mg HS PRN PO INSOMNIA; Start 08/16/18 at 02:30 Acetaminophen (Tylenol Tab) 650 mg Q4H PRN PO MILD PAIN(1-3)OR ELEVATED TEMP; Start 08/16/18 at 02:30 Atropine Sulfate (Atropine 1% Oph) 1 drop BID BOTH EYES Last administered on 08/16/18 08:12; Admin Dose 1 DROP; Start 08/16/18 at 09:00 Famotidine (Pepcid) 20 mg BID PO Last administered on 08/16/18 08:13; Admin Dose 20 MG; Start 08/16/18 at 09:00 Minoxidil (Loniten) 2.5 mg BID PO Last administered on 08/16/18 08:12; Admin Dose 2.5 MG; Start 08/16/18 at 09:00 Losartan Potassium (Cozaar) 50 mg DAILY PO Last administered on 08/16/18 08:13; Admin Dose 50 MG; Start 08/16/18 at 09:00 Carvedilol (Coreg) 6.25 mg BID PO Last administered on 08/16/18 08:12; Admin Dose 6.25 MG; Start 08/16/18 at 09:00 Clonidine (Catapres) 0.1 mg Q4H PRN PO ELEVATED BLOOD PRESSURE Last administered on 08/16/18 09:53; Admin Dose 0.1 MG; Start 08/16/18 at 08:30 Isosorbide Mononitrate (Imdur) 60 mg DAILY PO Last administered on 08/16/18at 10:55; Admin Dose 60 MG; Start 08/16/18 at 11:00 Vancomycin HCl (Vanco Iv Per Pharmacy) VANCOMYCIN PER PHARMACY PER PROTOCOL XX ; Start 08/16/18 at 11:30 Piperacillin Sod/ Tazobactam Sod 50 ml @ 200 mls/hr Q8 IVPB ; Start 08/16/18 at 14:00 Vancomycin HCl 1.5 gm/Sodium Chloride 250 ml @ 83.333 mls/ hr ONCE IVPB Last administered on 08/16/18at 12:25; Admin Dose 83.333 MLS/HR; Start 08/16/18 at 13:00; Stop 08/16/18 at 15:59 Heparin Sodium (Porcine) (Heparin (1000 Units/ml)) 4,000 unit AFTER DIALYSIS CATHETER ; Start 08/16/18 at 12:30 Albumin Human 100 ml @ 100 mls/hr WITH DIALYSIS PRN IV SBP <90 DURING DIALYSIS; Start 08/16/18 at 12:30 Sodium Chloride (NS) -To prime the dialy... DIRECTED FOR HD PRN IV HD; Start 08/16/18 at 12:30 Nifedipine (Procardia Xl) 60 mg BID PO ; Start 08/16/18 at 21:00 ANTONY RAND M.D. Aug 16, 2018 13:06
--- NOTE | 2018-08-16 16:00 | CONS ---
DATE OF ADMISSION: 08/16/2018 DATE OF CONSULTATION: TYPE OF CONSULTATION: Pulmonary. REASON FOR CONSULTATION: Abnormal chest CT. Thank you, Dr. Peterson, for this consultation. HISTORY OF PRESENT ILLNESS: This is a 57-year-old gentleman with history of hypertension, hyperlipid emia, end-stage renal failure on hemodialysis, came in with 2-day history of increasing cough, conges tion, but no fever, no chills, no hemoptysis or hematemesis. Chest CT was performed and demonstrated density in the right lower lobe with possible left lower lobe infiltrate. The patient is a poor his akash and unable to give me further history. PAST MEDICAL HISTORY: As above. MEDICATIONS: Per chart. ALLERGIES: 1. HYDRALAZINE. 2. SIMVASTATIN. PHYSICAL EXAMINATION: GENERAL: Well-nourished, well-developed gentleman, appears comfortable at rest, in no acute distress . VITAL SIGNS: Currently afebrile, pulse is 60, blood pressure 180/80, O2 saturation 97% on 2 liters n ana cannula. NECK: Supple. No JVD or lymphadenopathy. CARDIAC: S1, S2. No added sounds or murmurs. CHEST: Diminished air entry bilaterally. ABDOMEN: Soft, nontender. No guarding or rebound. EXTREMITIES: No cyanosis, clubbing. A 1+ edema. NEUROLOGIC: Generalized weakness. LABORATORY DATA: White count 4.0, hemoglobin 11.2, platelets within normal limits. BUN 67, creatini ne 9.72. IMPRESSION AND PLAN: Right lower lobe infiltrate in a patient with multiple medical problems. RECOMMENDATIONS: 1. Treat infiltrate as community-acquired pneumonia. 2. I agree with cocci and TB workup. 3. We would repeat chest x-ray or CT in 1 month's time. If still abnormal, the patient will require PET-CT and biopsy. Dictated By: NORMA RASMUSSEN MD SV/NTS Conf#: [id number] DID#: [id number] CC: ANTONY RAND MD; HARMONY PETERSON MD;*EndCC*
[2018-08-16] MEDS: HEPARIN 1000 UNITS/ML 10 ML INJ CATHETER SCH (18:25)
[2018-08-16] MEDS: PIPER-TAZO 2.25 GM (PMX) 50 ML IVPB SCH ×2 (18:26→21:07)
[2018-08-16] MEDS: TOBRAMYCIN 0.3% 5 ML OPH LEFT EYE SCH ×2 (18:26→23:00)
[2018-08-16] MEDS: NIFEdipine (XL) 60 MG TAB PO SCH (20:08)
[2018-08-17] VITALS (26 sets, daily range): BP systolic 131–213; BP diastolic 54–93; PULSE 54–66; RESP 16–20
[2018-08-17] MEDS: PIPER-TAZO 2.25 GM (PMX) 50 ML IVPB SCH ×3 (05:23→22:07)
[2018-08-17] MEDS: TOBRAMYCIN 0.3% 5 ML OPH LEFT EYE SCH ×4 (05:24→23:45)
[2018-08-17] MEDS: ATROPINE 1% 5 ML OPH BOTH EYES SCH ×2 (07:55→21:15)
[2018-08-17] MEDS: ISOSORBIDE MONONITRATE(SR)60 MG TAB PO SCH (07:56)
[2018-08-17] MEDS: LOSARTAN 50 MG TAB PO SCH (07:56)
[2018-08-17] MEDS: NIFEdipine (XL) 60 MG TAB PO SCH ×2 (07:56→21:16)
[2018-08-17] MEDS: MINOXIDIL 2.5 MG TAB PO SCH ×2 (07:58→21:19)
--- NOTE | 2018-08-17 08:36 | RADRPT ---
Echocardiogram Report Patient Name: Gagandeep MIMS ID: [id number] : 1960 (57y 11m)Study Date: 08/16/2018 12:04:35 PM Gender: MAccession #: [id number] Tech: Duane Rose [facility] Location: [address] Ref.Physician: NAHUN GARCIA Height(Cm): BSA: Weight(Kg): Quality: AdequateAccount #: Procedures: Echocardiographic Report: Transthoracic echocardiogram with complete 2D, M-Mode, and doppler examination. Indications: HTN urgency, Coronary Artery Disease. Measurements: 2D/M Mode Doppler Measurement Value Normal Range Measurement Value Normal Range LVIDd 2D 4.6 [ 4.2 - 5.8 ] cm AV Peak Zachary 1.7 [ 100.0 - 170.0 ] cm/sec LVIDs 2D 3.1 [ 2.5 - 4.0 ] cm AV Peak PG 11.0 [ 2.0 - 9.0 ] mmHg LVPWd 2D 1.1 [ 0.6 - 1.0 ] cm LVOT Peak Zachary 1.1 [ 70.0 - 110.0 ] cm/sec IVSd 2D 1.1 [ 0.6 - 1.0 ] cm LVOT Peak PG 5.0 [ 2.0 - 6.0 ] mmHg IVS/LVPW 2D 1.0 ratio MV E Peak Zachary 1.1 [ 60.0 - 130.0 ] cm/sec AoR Diam 2D 2.8 [ 2.6 - 3.4 ] cm MV A Peak Zachary 1.0 [ 100.0 - 120.0 ] cm/sec LA/Ao 2D 1 ratio MV E/A 1.1 [ 0.8 - 1.5 ] ratio LA Dimen 2D 3.9 [ 3.0 - 4.0 ] cm MV Decel Time 271 [ 104 - 258 ] msec Lat E` Zachary 0.1 [ 10.0 - 15.0 ] cm/sec Med E` Zachary 0.0 cm/sec MV E/A 1.1 [ 0.8 - 1.5 ] ratio TR Peak Zachary 2.5 [ 100.0 - 280.0 ] cm/sec TR Peak PG 26.0 mmHg RVSP 36.0 [ 10.0 - 36.0 ] mmHg Findings: Left Ventricle: Normal left ventricular systolic function. Normal left ventricular cavity size. Ejection fraction is visually estimated at 60 %. Tissue Doppler/Mitral Doppler indices are consistent with impaired relaxation (Stage I diastolic dysfunction). Right Ventricle: Normal right ventricular size. Mild right ventricular systolic dysfunction. Left Atrium: The left atrium is normal in size. Right Atrium: The right atrium is normal in size. Mitral Valve: Mild mitral leaflet calcification. Mild mitral annular calcification. Mild mitral valve regurgitation. Aortic Valve: No significant aortic stenosis or insufficiency. Aortic cusps appear mildly calcified. Tricuspid Valve: Normal appearance of the tricuspid valve. Estimated peak PA systolic pressure 36 mmHg. There is mild tricuspid regurgitation. Pericardium: Normal pericardium with no significant pericardial effusion. Aorta: Normal aortic root. IVC: Normal size and normal respiratory collapse consistent with normal right atrial pressure. Conclusions: Normal left ventricular systolic function. Normal left ventricular cavity size. Ejection fraction is visually estimated at 60 %. Tissue Doppler/Mitral Doppler indices are consistent with impaired relaxation (Stage I diastolic dysfunction). Mild mitral leaflet calcification. Mild mitral annular calcification. Mild mitral valve regurgitation. No significant aortic stenosis or insufficiency. Aortic cusps appear mildly calcified. Normal appearance of the tricuspid valve. Estimated peak PA systolic pressure 36 mmHg. There is mild tricuspid regurgitation. Electronically Signed By: Nahun Garcia 2018-08-17 08:35:45 [facility]
--- NOTE | 2018-08-17 09:11 | CONS ---
Consult Date/Type/Reason Admit Date/Time Aug 16, 2018 at 00:15 Initial Consult Date 08/16/18 Requesting Provider: COREY SARAVIA Date/Time of Note DATE: 08/17/18 TIME: 09:07 Subjective Cardiology follow-up progress note Subjective: Discussed with the staff telemetry was reviewed patient with normal sinus rhythm/sinus bradycardia Patient with no chest pain or pressure. His cough is better. No bleeding is reported. Objective: General: no acute distress HEENT: NC/AT. . NECK: NO JVD. no stridor. CV: RRR. systolic murmur; no gallop or rubs. PULM: no wheezing or rhonchi. GI: SOFT, NT, ND, no rebound or guarding Extremity: trace B/L LE edema. no clubbing. neuro: awake and alert, OX3. Psych: calm and pleasant rectal: deferred : normal EKG was personally within normal sinus rhythm nonspecific ST abnormalities Chest x-ray shows: Mild cardiomegaly. Mild pulmonary vascular congestion. Calcified aorta consistent with atherosclerotic disease. 3.8 cm right lower lobe nodular opacity. Follow-up CT chest is recommended. Echocardiogram done 08/16/2018 shows: Normal left ventricular systolic function. Normal left ventricular cavity size. Ejection fraction is visually estimated at 60 %. Tissue Doppler/Mitral Doppler indices are consistent with impaired relaxation (Stage I diastolic dysfunction). Mild mitral leaflet calcification. Mild mitral annular calcification. Mild mitral valve regurgitation. No significant aortic stenosis or insufficiency. Aortic cusps appear mildly calcified. Normal appearance of the tricuspid valve. Estimated peak PA systolic pressure 36 mmHg. There is mild tricuspid regurgitation. CT of the chest on 08/13/2018 shows: Multiple nodular densities are seen within the right lower lobe and this corresponds to the abnormality on prior chest radiograph. There is also a nodule in the left lower lobe. These could represent infectious nodular opacities or could represent neoplastic lesions. This can be correlated with clinical findings and biopsy may be considered as clinically warranted. Follow-up CT is recommended after 3 months. Renal atrophy is present with mild cardiomegaly and faint pulmonary edema. Atherosclerotic disease is present. There is a fecal filled colon with diverticulosis. Objective Vitals Vital Signs Date Temp Pulse Resp B/P (MAP) Pulse Ox O2 O2 Flow FiO2 Time Delivery Rate 08/17/18 59 08:21 08/17/18 98.7 18 163/67 99 07:24 (99) 08/16/18 Room Air 19:14 08/15/18 21 23:15 Intake and Output 08/16/18 08/16/18 08/17/18 1515:00 23:00 07:00 IntakeIntake Total 1060 ml 150 ml OutputOutput Total 2400 ml BalanceBalance -1340 ml 150 ml Results/Medications Result Diagram: 08/17/18 0541 08/17/18 0541 Results 24 hrs Laboratory Tests Test 08/16/18 11:07 08/16/18 13:59 08/17/18 05:41 White Blood Count 4.0 #L 2.9 #L Red Blood Count 3.80 L 3.97 L Hemoglobin 11.2 L 11.9 L Hematocrit 35.1 L 36.3 L Mean Corpuscular Volume 92.4 91.4 Mean Corpuscular Hemoglobin 29.5 30.0 Mean Corpuscular Hemoglobin Concent 31.9 L 32.8 Red Cell Distribution Width 14.1 13.5 Platelet Count 110 L 88 L Mean Platelet Volume 11.1 H 11.7 H Immature Granulocytes % 0.000 L 0.300 Neutrophils % 63.7 Lymphocytes % 16.3 Monocytes % 10.5 Eosinophils % 9.0 H Basophils % 0.5 Nucleated Red Blood Cells % 0.0 0.0 Immature Granulocytes # 0.000 0.010 Neutrophils # 2.6 Lymphocytes # 0.7 L Monocytes # 0.4 Eosinophils # 0.4 Basophils # 0.0 Nucleated Red Blood Cells # 0.0 Sodium Level 139 138 Potassium Level 5.8 H 5.1 Chloride Level 104 98 Carbon Dioxide Level 23 28 Anion Gap 12 12 Blood Urea Nitrogen 67 H 48 #H Creatinine 9.72 H 8.61 H Est Glomerular Filtrat Rate mL/min 6 L 6 L Glucose Level 141 94 # Calcium Level 8.6 8.5 Hepatitis B Surface Antigen NEGATIVE Segmented Neutrophils % (Manual) 53 Band Neutrophils % (Manual) 1 Lymphocytes % (Manual) 22 Monocytes % (Manual) 4 Eosinophils % (Manual) 18 H Basophils % (Manual) 1 Plasma Cells % (manual) 1 Neutrophils # (Manual) 1.5 L Band Neutrophils # 0.0 Lymphocytes (Manual) 0.6 L Monocytes # (Manual) 0.1 L Basophils # (Manual) 0.0 Plasma Cells # (manual) 0.0 Platelet Estimate DECREASED Platelet Morphology Comment @See below Anisocytosis 1+ Macrocytosis 1+ Magnesium Level 2.5 Total Bilirubin 0.0 L Direct Bilirubin 0.00 Indirect Bilirubin 0.0 Aspartate Amino Transf (AST/SGOT) 10 L Alanine Aminotransferase (ALT/SGPT) 7 L Alkaline Phosphatase 54 Total Protein 7.5 Albumin 4.2 Globulin 3.30 H Albumin/Globulin Ratio 1.27 Triglycerides Level 48 Cholesterol Level 140 LDL Cholesterol, Calculated 68 HDL Cholesterol 62 Cholesterol/HDL Ratio 2.2 Carcinoembryonic Antigen 2.5 Thyroid Stimulating Hormone (TSH) 1.880 Free Thyroxine 1.41 Home Meds Reported Medications Nifedipine* (Nifedipine ER*) 90 Mg Tablet.er, 90 MG PO DAILY, TAB 08/15/18 Carvedilol* (Carvedilol*) 6.25 Mg Tablet, 6.25 MG PO BID, #60 TAB 08/15/18 Isosorbide Mononitrate* (Isosorbide Mononitrate*) 60 Mg Tab.er.24h, 60 MG PO DAILY, TAB 08/15/18 Losartan Potassium* (Losartan Potassium*) 50 Mg Tablet, 50 MG PO DAILY, TAB 08/15/18 Minoxidil* (Lonitin*) 2.5 Mg Tab, 2.5 MG PO BID, TAB 08/15/18 Famotidine* (Famotidine*) 20 Mg Tablet, 20 MG PO BID, #60 TAB 08/15/18 Atropine Sulfate/0.9 %Sod Chlr (Atropine 0.01%-Ns Eye Drops) 10 Ml Drops, 15 ML OP BID, BOTTLE 08/15/18 Tamsulosin Hcl* (Tamsulosin Hcl*) 0.4 Mg Cap.er.24h, 0.4 MG PO DAILY, CAP 08/15/18 Clonidine Hcl* (Clonidine Hcl*) 0.1 Mg Tab, 0.2 MG PO BID PRN for ELEVATED BLOOD PRESSURE, TAB 08/15/18 Sevelamer Carbonate* (Renvela*) 800 Mg Tablet, 0.8 GM PO WITH MEALS, TAB 08/15/18 Medications Current Medications Dextrose (D50w Syringe) ONCE PRN IV DECREASED GLUCOSE Last administered on 08/15/18at 23:48; Admin Dose 50 ML; Start 08/15/18 at 23:00 Zolpidem Tartrate (Ambien) 5 mg HS PRN PO INSOMNIA; Start 08/16/18 at 02:30 Acetaminophen (Tylenol Tab) 650 mg Q4H PRN PO MILD PAIN(1-3)OR ELEVATED TEMP; Start 08/16/18 at 02:30 Atropine Sulfate (Atropine 1% Oph) 1 drop BID BOTH EYES Last administered on 08/17/18 07:55; Admin Dose 1 DROP; Start 08/16/18 at 09:00 Minoxidil (Loniten) 2.5 mg BID PO Last administered on 08/17/18 07:58; Admin Dose 2.5 MG; Start 08/16/18 at 09:00 Losartan Potassium (Cozaar) 50 mg DAILY PO Last administered on 08/17/18 07:56; Admin Dose 50 MG; Start 08/16/18 at 09:00 Carvedilol (Coreg) 6.25 mg BID PO Last administered on 08/17/18 07:58; Admin Dose 6.25 MG; Start 08/16/18 at 09:00 Clonidine (Catapres) 0.1 mg Q4H PRN PO ELEVATED BLOOD PRESSURE Last administered on 08/17/18 00:15; Admin Dose 0.1 MG; Start 08/16/18 at 08:30 Isosorbide Mononitrate (Imdur) 60 mg DAILY PO Last administered on 08/17/18 07:56; Admin Dose 60 MG; Start 08/16/18 at 11:00 Vancomycin HCl (Vanco Iv Per Pharmacy) VANCOMYCIN PER PHARMACY PER PROTOCOL XX ; Start 08/16/18 at 11:30 Piperacillin Sod/ Tazobactam Sod 50 ml @ 200 mls/hr Q8 IVPB Last administered on 08/17/18 05:23; Admin Dose 200 MLS/HR; Start 08/16/18 at 14:00 Heparin Sodium (Porcine) (Heparin (1000 Units/ml)) 4,000 unit AFTER DIALYSIS CATHETER Last administered on 08/16/18 18:25; Admin Dose 3,800 UNIT; Start 08/16/18 at 12:30 Albumin Human 100 ml @ 100 mls/hr WITH DIALYSIS PRN IV SBP <90 DURING DIALYSIS; Start 08/16/18 at 12:30 Sodium Chloride (NS) -To prime the dialy... DIRECTED FOR HD PRN IV HD; Start 08/16/18 at 12:30 Nifedipine (Procardia Xl) 60 mg BID PO Last administered on 08/17/18at 07:56; Admin Dose 60 MG; Start 08/16/18 at 21:00 Tobramycin Sulfate (Tobrex 0.3% Oph Drop) 1 drop Q6 LEFT EYE Last administered on 08/17/18at 05:24; Admin Dose 1 DROP; Start 08/16/18 at 18:00; Stop 08/23/18 at 17:59 Famotidine (Pepcid) 20 mg QHS PO ; Start 08/17/18 at 21:00 Assessment/Plan Hospital Course (Demo Recall) 1. Hypertensive urgency/resistant hypertension 2. History of coronary artery disease 3. History of most likely VA and coronary artery bypass graft 4. Renal failure on dialysis 5. Pulmonary vascular congestion/fluid overload 6. Diabetes 7. Dyslipidemia 8. Hyperkalemia 9. Pulmonary nodule Recommendations: Continue with the Coreg Procardia. Continue with minoxidil Continue with losartan as long as okay with renal and hyperkalemia Clonidine will be continued as a as needed as well. Lipid panel reviewed and showed LDL at goal of less than 70 Hemodialysis as per renal Along with pulmonary recommendations Thank you for his referral. We will continue to follow along with you NAHUN RUSSELL MD [facility] NAHUN RUSSELL MD Aug 17, 2018 09:11
--- NOTE | 2018-08-17 09:18 | CONS ---
Assessment/Plan Assessment/Plan Assessment/Plan (Daily) 1. acute hyperkalemia - resolved now 2. ESRD on HD MWF 3. accelerateD HTN - improving BP control 4. acute chest pain 5.type II DM with hyperglycemia 6. H/o HTN Plan: Nifedipine 60mg pO BID, s/p HD today 2 L removed, BP stable Continue other BP meds Cocci serology has been ordered IV abx as per ID will follow up Consultation Date/Type/Reason Admit Date/Time Aug 16, 2018 at 00:15 Initial Consult Date 08/16/18 Type of Consult NEPHROLOGY Requesting Provider: COREY SARAVIA Date/Time of Note DATE: 08/17/18 TIME: 09:17 24 HR Interval Summary Free Text/Dictation s/p HD today 2 L removed, BP stable, ID following for PNA and infection issues Exam/Review of Systems Exam Vitals Vital Signs Date Temp Pulse Resp B/P (MAP) Pulse Ox O2 O2 Flow FiO2 Time Delivery Rate 08/17/18 59 08:21 08/17/18 98.7 18 163/67 99 07:24 (99) 08/16/18 Room Air 19:14 08/15/18 21 23:15 Intake and Output 08/16/18 08/16/18 08/17/18 1515:00 23:00 07:00 IntakeIntake Total 1060 ml 150 ml OutputOutput Total 2400 ml BalanceBalance -1340 ml 150 ml Exam Constitutional: alert, awake, no acute distress Respiratory: clear to auscultation, normal air movement, diminished breath sounds Cardiovascular: regular rate and rhythm, nl pulses Gastrointestinal: soft, non-tender Musculoskeletal: muscle tone, swelling Extremities: normal pulses 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: LINEN GRADER II-XII intact, nl mental status, nl speech, nl strength Lymph: nl lymph nodes Results Result Diagram: 08/17/18 0541 08/17/18 0541 Results 24hrs Laboratory Tests Test 08/16/18 11:07 08/16/18 13:59 08/17/18 05:41 White Blood Count 4.0 #L 2.9 #L Red Blood Count 3.80 L 3.97 L Hemoglobin 11.2 L 11.9 L Hematocrit 35.1 L 36.3 L Mean Corpuscular Volume 92.4 91.4 Mean Corpuscular Hemoglobin 29.5 30.0 Mean Corpuscular Hemoglobin Concent 31.9 L 32.8 Red Cell Distribution Width 14.1 13.5 Platelet Count 110 L 88 L Mean Platelet Volume 11.1 H 11.7 H Immature Granulocytes % 0.000 L 0.300 Neutrophils % 63.7 Lymphocytes % 16.3 Monocytes % 10.5 Eosinophils % 9.0 H Basophils % 0.5 Nucleated Red Blood Cells % 0.0 0.0 Immature Granulocytes # 0.000 0.010 Neutrophils # 2.6 Lymphocytes # 0.7 L Monocytes # 0.4 Eosinophils # 0.4 Basophils # 0.0 Nucleated Red Blood Cells # 0.0 Sodium Level 139 138 Potassium Level 5.8 H 5.1 Chloride Level 104 98 Carbon Dioxide Level 23 28 Anion Gap 12 12 Blood Urea Nitrogen 67 H 48 #H Creatinine 9.72 H 8.61 H Est Glomerular Filtrat Rate mL/min 6 L 6 L Glucose Level 141 94 # Calcium Level 8.6 8.5 Hepatitis B Surface Antigen NEGATIVE Segmented Neutrophils % (Manual) 53 Band Neutrophils % (Manual) 1 Lymphocytes % (Manual) 22 Monocytes % (Manual) 4 Eosinophils % (Manual) 18 H Basophils % (Manual) 1 Plasma Cells % (manual) 1 Neutrophils # (Manual) 1.5 L Band Neutrophils # 0.0 Lymphocytes (Manual) 0.6 L Monocytes # (Manual) 0.1 L Basophils # (Manual) 0.0 Plasma Cells # (manual) 0.0 Platelet Estimate DECREASED Platelet Morphology Comment @See below Anisocytosis 1+ Macrocytosis 1+ Magnesium Level 2.5 Total Bilirubin 0.0 L Direct Bilirubin 0.00 Indirect Bilirubin 0.0 Aspartate Amino Transf (AST/SGOT) 10 L Alanine Aminotransferase (ALT/SGPT) 7 L Alkaline Phosphatase 54 Total Protein 7.5 Albumin 4.2 Globulin 3.30 H Albumin/Globulin Ratio 1.27 Triglycerides Level 48 Cholesterol Level 140 LDL Cholesterol, Calculated 68 HDL Cholesterol 62 Cholesterol/HDL Ratio 2.2 Carcinoembryonic Antigen 2.5 Thyroid Stimulating Hormone (TSH) 1.880 Free Thyroxine 1.41 Medications Medication Current Medications Dextrose (D50w Syringe) ONCE PRN IV DECREASED GLUCOSE Last administered on 08/15/18at 23:48; Admin Dose 50 ML; Start 08/15/18 at 23:00 Zolpidem Tartrate (Ambien) 5 mg HS PRN PO INSOMNIA; Start 08/16/18 at 02:30 Acetaminophen (Tylenol Tab) 650 mg Q4H PRN PO MILD PAIN(1-3)OR ELEVATED TEMP; Start 08/16/18 at 02:30 Atropine Sulfate (Atropine 1% Oph) 1 drop BID BOTH EYES Last administered on 08/17/18 07:55; Admin Dose 1 DROP; Start 08/16/18 at 09:00 Minoxidil (Loniten) 2.5 mg BID PO Last administered on 08/17/18 07:58; Admin Dose 2.5 MG; Start 08/16/18 at 09:00 Losartan Potassium (Cozaar) 50 mg DAILY PO Last administered on 08/17/18 07:56; Admin Dose 50 MG; Start 08/16/18 at 09:00 Carvedilol (Coreg) 6.25 mg BID PO Last administered on 08/17/18 07:58; Admin Dose 6.25 MG; Start 08/16/18 at 09:00 Clonidine (Catapres) 0.1 mg Q4H PRN PO ELEVATED BLOOD PRESSURE Last administered on 08/17/18 00:15; Admin Dose 0.1 MG; Start 08/16/18 at 08:30 Isosorbide Mononitrate (Imdur) 60 mg DAILY PO Last administered on 08/17/18 07:56; Admin Dose 60 MG; Start 08/16/18 at 11:00 Vancomycin HCl (Vanco Iv Per Pharmacy) VANCOMYCIN PER PHARMACY PER PROTOCOL XX ; Start 08/16/18 at 11:30 Piperacillin Sod/ Tazobactam Sod 50 ml @ 200 mls/hr Q8 IVPB Last administered on 08/17/18at 05:23; Admin Dose 200 MLS/HR; Start 08/16/18 at 14:00 Heparin Sodium (Porcine) (Heparin (1000 Units/ml)) 4,000 unit AFTER DIALYSIS CATHETER Last administered on 08/16/18at 18:25; Admin Dose 3,800 UNIT; Start 08/16/18 at 12:30 Albumin Human 100 ml @ 100 mls/hr WITH DIALYSIS PRN IV SBP <90 DURING DIALYSIS; Start 08/16/18 at 12:30 Sodium Chloride (NS) -To prime the dialy... DIRECTED FOR HD PRN IV HD; Start 08/16/18 at 12:30 Nifedipine (Procardia Xl) 60 mg BID PO Last administered on 08/17/18at 07:56; Admin Dose 60 MG; Start 08/16/18 at 21:00 Tobramycin Sulfate (Tobrex 0.3% Oph Drop) 1 drop Q6 LEFT EYE Last administered on 08/17/18at 05:24; Admin Dose 1 DROP; Start 08/16/18 at 18:00; Stop 08/23/18 at 17:59 Famotidine (Pepcid) 20 mg QHS PO ; Start 08/17/18 at 21:00 VALERIA RODRÍGUEZ MD Aug 17, 2018 09:18
--- NOTE | 2018-08-17 10:23 | CONS ---
Assessment/Plan Assessment/Plan Hospital Course (Demo Recall) #Multiple lung mass in RLL -Recent CT demonstrates a RLL mass measuring 3.6x3.7cm as well as other nodular opacities in the RLL. -although this could represent infection, it may also represent metastatic cancer -will order CT guided bx of the RLL mass -if we are unable to perform the bx, will plan to repeat a PET CT as an out patient to re-evaluate the pulmonary nodules at that time #Pneumonia -continue IV antibiotics per ID -pt currently underlying workup for Cocci and TB #ESRD -continue HD per renal #HTN -continue BP meds Thank you for the opportunity to participate in this patients care A total of 40 minutes of face to face time was spent speaking with the patient, of which greater than 50% was spent in counseling and coordination of care and the detailed question and answer session. Consultation Date/Type/Reason Admit Date/Time Aug 16, 2018 at 00:15 Date of Consultation: Aug 17, 2018 Type of Consult oncology Reason for Consultation lung mass Requesting Provider: HARMONY PETERSON MD Date/Time of Note DATE: 08/17/18 TIME: 09:42 Hx of Present Illness 57 yo male with multiple medical problems including ESRD on HD, HTN, blindness, DM who was admitted on 08/16/18 with URI/ bronchitis sx as well as hyperkalemia. PT has since been started on IV Abx. 08/16/18 Initial CXR revealed a 3.8cm RLL nodular opacity 08/16/18 CT CAP again revealed the RLL mass measuring 3.6x3.7cm as well as other nodular opacities in the RLL. A 1.5cm LLL mass is also noted. CEA is noted to be normal. We have been consulted given concern for underlying malignancy. Constitutional: chills, diaphoresis, poor po Eyes: other (blind) ENT: no complaints Respiratory: cough, shortness of breath Cardiovascular: no complaints Gastrointestinal: decreased appetite Genitourinary: no complaints Musculoskeletal: back pain, bone/joint pain Skin: no complaints Neurologic: no complaints Endocrine: no complaints Past Medical History Medical History: diabetes, high cholesterol, hypertension, other (ESRD on HD, Blindness ) Home Meds Reported Medications Nifedipine* (Nifedipine ER*) 90 Mg Tablet.er, 90 MG PO DAILY, TAB 08/15/18 Carvedilol* (Carvedilol*) 6.25 Mg Tablet, 6.25 MG PO BID, #60 TAB 08/15/18 Isosorbide Mononitrate* (Isosorbide Mononitrate*) 60 Mg Tab.er.24h, 60 MG PO DAILY, TAB 08/15/18 Losartan Potassium* (Losartan Potassium*) 50 Mg Tablet, 50 MG PO DAILY, TAB 08/15/18 Minoxidil* (Lonitin*) 2.5 Mg Tab, 2.5 MG PO BID, TAB 08/15/18 Famotidine* (Famotidine*) 20 Mg Tablet, 20 MG PO BID, #60 TAB 08/15/18 Atropine Sulfate/0.9 %Sod Chlr (Atropine 0.01%-Ns Eye Drops) 10 Ml Drops, 15 ML OP BID, BOTTLE 08/15/18 Tamsulosin Hcl* (Tamsulosin Hcl*) 0.4 Mg Cap.er.24h, 0.4 MG PO DAILY, CAP 08/15/18 Clonidine Hcl* (Clonidine Hcl*) 0.1 Mg Tab, 0.2 MG PO BID PRN for ELEVATED BLOOD PRESSURE, TAB 08/15/18 Sevelamer Carbonate* (Renvela*) 800 Mg Tablet, 0.8 GM PO WITH MEALS, TAB 08/15/18 Medications Current Medications Dextrose (D50w Syringe) ONCE PRN IV DECREASED GLUCOSE Last administered on 08/15/18at 23:48; Admin Dose 50 ML; Start 08/15/18 at 23:00 Zolpidem Tartrate (Ambien) 5 mg HS PRN PO INSOMNIA; Start 08/16/18 at 02:30 Acetaminophen (Tylenol Tab) 650 mg Q4H PRN PO MILD PAIN(1-3)OR ELEVATED TEMP; Start 08/16/18 at 02:30 Atropine Sulfate (Atropine 1% Oph) 1 drop BID BOTH EYES Last administered on 08/17/18at 07:55; Admin Dose 1 DROP; Start 08/16/18 at 09:00 Minoxidil (Loniten) 2.5 mg BID PO Last administered on 08/17/18at 07:58; Admin Dose 2.5 MG; Start 08/16/18 at 09:00 Losartan Potassium (Cozaar) 50 mg DAILY PO Last administered on 08/17/18at 07:56; Admin Dose 50 MG; Start 08/16/18 at 09:00 Carvedilol (Coreg) 6.25 mg BID PO Last administered on 08/17/18at 07:58; Admin Dose 6.25 MG; Start 08/16/18 at 09:00 Clonidine (Catapres) 0.1 mg Q4H PRN PO ELEVATED BLOOD PRESSURE Last administered on 08/17/18at 00:15; Admin Dose 0.1 MG; Start 08/16/18 at 08:30 Isosorbide Mononitrate (Imdur) 60 mg DAILY PO Last administered on 08/17/18 07:56; Admin Dose 60 MG; Start 08/16/18 at 11:00 Vancomycin HCl (Vanco Iv Per Pharmacy) VANCOMYCIN PER PHARMACY PER PROTOCOL XX ; Start 08/16/18 at 11:30 Piperacillin Sod/ Tazobactam Sod 50 ml @ 200 mls/hr Q8 IVPB Last administered on 08/17/18 05:23; Admin Dose 200 MLS/HR; Start 08/16/18 at 14:00 Heparin Sodium (Porcine) (Heparin (1000 Units/ml)) 4,000 unit AFTER DIALYSIS CATHETER Last administered on 08/16/18at 18:25; Admin Dose 3,800 UNIT; Start at 12:30 Albumin Human 100 ml @ 100 mls/hr WITH DIALYSIS PRN IV SBP <90 DURING DIALYSIS; Start 08/16/18 at 12:30 Sodium Chloride (NS) -To prime the dialy... DIRECTED FOR HD PRN IV HD; Start 08/16/18 at 12:30 Nifedipine (Procardia Xl) 60 mg BID PO Last administered on 08/17/18at 07:56; Admin Dose 60 MG; Start 08/16/18 at 21:00 Tobramycin Sulfate (Tobrex 0.3% Oph Drop) 1 drop Q6 LEFT EYE Last administered on 08/17/18 05:24; Admin Dose 1 DROP; Start 08/16/18 at 18:00; Stop 08/23/18 at 17:59 Famotidine (Pepcid) 20 mg QHS PO ; Start 08/17/18 at 21:00 Allergies: Coded Allergies: hydralazine (Verified Allergy, Unknown, 08/15/18) simvastatin (Verified Allergy, Unknown, 08/15/18) Past Surgical History Past Surgical Hx: other (Permacath ) Family History Significant Family History: no pertinent family hx Social History Alcohol Use: none Smoking Status: Never smoker Drug Use: none Exam/Review of Systems Exam Vitals Vital Signs Date Temp Pulse Resp B/P (MAP) Pulse Ox O2 O2 Flow FiO2 Time Delivery Rate 08/17/18 59 08:21 08/17/18 98.7 18 163/67 99 07:24 (99) 08/16/18 Room Air 19:14 08/15/18 21 23:15 Intake and Output 08/16/18 08/16/18 08/17/18 1515:00 23:00 07:00 IntakeIntake Total 1110 ml 150 ml OutputOutput Total 2400 ml BalanceBalance -1290 ml 150 ml Constitutional: alert, oriented, distress, frail Psych: depression Head: normocephalic Eyes: other (cataracts) ENMT: nl external ears & nose Neck: supple Respiratory: congested cough, crackles/rales, diminished breath sounds Cardiovascular: regular rate and rhythm Gastrointestinal: soft Musculoskeletal: nl extremities to inspection Results Result Diagram: 08/17/18 0541 08/17/18 0541 Results 24hrs Laboratory Tests Test 08/16/18 11:07 08/16/18 13:59 08/17/18 05:41 White Blood Count 4.0 #L 2.9 #L Red Blood Count 3.80 L 3.97 L Hemoglobin 11.2 L 11.9 L Hematocrit 35.1 L 36.3 L Mean Corpuscular Volume 92.4 91.4 Mean Corpuscular Hemoglobin 29.5 30.0 Mean Corpuscular Hemoglobin Concent 31.9 L 32.8 Red Cell Distribution Width 14.1 13.5 Platelet Count 110 L 88 L Mean Platelet Volume 11.1 H 11.7 H Immature Granulocytes % 0.000 L 0.300 Neutrophils % 63.7 Lymphocytes % 16.3 Monocytes % 10.5 Eosinophils % 9.0 H Basophils % 0.5 Nucleated Red Blood Cells % 0.0 0.0 Immature Granulocytes # 0.000 0.010 Neutrophils # 2.6 Lymphocytes # 0.7 L Monocytes # 0.4 Eosinophils # 0.4 Basophils # 0.0 Nucleated Red Blood Cells # 0.0 Sodium Level 139 138 Potassium Level 5.8 H 5.1 Chloride Level 104 98 Carbon Dioxide Level 23 28 Anion Gap 12 12 Blood Urea Nitrogen 67 H 48 #H Creatinine 9.72 H 8.61 H Est Glomerular Filtrat Rate mL/min 6 L 6 L Glucose Level 141 94 # Calcium Level 8.6 8.5 Hepatitis B Surface Antigen NEGATIVE Segmented Neutrophils % (Manual) 53 Band Neutrophils % (Manual) 1 Lymphocytes % (Manual) 22 Monocytes % (Manual) 4 Eosinophils % (Manual) 18 H Basophils % (Manual) 1 Plasma Cells % (manual) 1 Neutrophils # (Manual) 1.5 L Band Neutrophils # 0.0 Lymphocytes (Manual) 0.6 L Monocytes # (Manual) 0.1 L Basophils # (Manual) 0.0 Plasma Cells # (manual) 0.0 Platelet Estimate DECREASED Platelet Morphology Comment @See below Anisocytosis 1+ Macrocytosis 1+ Magnesium Level 2.5 Total Bilirubin 0.0 L Direct Bilirubin 0.00 Indirect Bilirubin 0.0 Aspartate Amino Transf (AST/SGOT) 10 L Alanine Aminotransferase (ALT/SGPT) 7 L Alkaline Phosphatase 54 Total Protein 7.5 Albumin 4.2 Globulin 3.30 H Albumin/Globulin Ratio 1.27 Triglycerides Level 48 Cholesterol Level 140 LDL Cholesterol, Calculated 68 HDL Cholesterol 62 Cholesterol/HDL Ratio 2.2 Carcinoembryonic Antigen 2.5 Thyroid Stimulating Hormone (TSH) 1.880 Free Thyroxine 1.41 Medications Medication Current Medications Dextrose (D50w Syringe) ONCE PRN IV DECREASED GLUCOSE Last administered on 08/15/18 23:48; Admin Dose 50 ML; Start 08/15/18 at 23:00 Zolpidem Tartrate (Ambien) 5 mg HS PRN PO INSOMNIA; Start 08/16/18 at 02:30 Acetaminophen (Tylenol Tab) 650 mg Q4H PRN PO MILD PAIN(1-3)OR ELEVATED TEMP; Start 08/16/18 at 02:30 Atropine Sulfate (Atropine 1% Oph) 1 drop BID BOTH EYES Last administered on 08/17/18 07:55; Admin Dose 1 DROP; Start 08/16/18 at 09:00 Minoxidil (Loniten) 2.5 mg BID PO Last administered on 08/17/18 07:58; Admin Dose 2.5 MG; Start 08/16/18 at 09:00 Losartan Potassium (Cozaar) 50 mg DAILY PO Last administered on 08/17/18 07:5 6; Admin Dose 50 MG; Start 08/16/18 at 09:00 Carvedilol (Coreg) 6.25 mg BID PO Last administered on 08/17/18 07:58; Admin Dose 6.25 MG; Start 08/16/18 at 09:00 Clonidine (Catapres) 0.1 mg Q4H PRN PO ELEVATED BLOOD PRESSURE Last administered on 08/17/18 00:15; Admin Dose 0.1 MG; Start 08/16/18 at 08:30 Isosorbide Mononitrate (Imdur) 60 mg DAILY PO Last administered on 08/17/18 07:56; Admin Dose 60 MG; Start 08/16/18 at 11:00 Vancomycin HCl (Vanco Iv Per Pharmacy) VANCOMYCIN PER PHARMACY PER PROTOCOL XX ; Start 08/16/18 at 11:30 Piperacillin Sod/ Tazobactam Sod 50 ml @ 200 mls/hr Q8 IVPB Last administered on 08/17/18 05:23; Admin Dose 200 MLS/HR; Start 08/16/18 at 14:00 Heparin Sodium (Porcine) (Heparin (1000 Units/ml)) 4,000 unit AFTER DIALYSIS CATHETER Last administered on 08/16/18 18:25; Admin Dose 3,800 UNIT; Start 08/16/18 at 12:30 Albumin Human 100 ml @ 100 mls/hr WITH DIALYSIS PRN IV SBP <90 DURING DIALYSIS; Start 08/16/18 at 12:30 Sodium Chloride (NS) -To prime the dialy... DIRECTED FOR HD PRN IV HD; Start 08/16/18 at 12:30 Nifedipine (Procardia Xl) 60 mg BID PO Last administered on 08/17/18at 07:56; Admin Dose 60 MG; Start 08/16/18 at 21:00 Tobramycin Sulfate (Tobrex 0.3% Oph Drop) 1 drop Q6 LEFT EYE Last administered on 08/17/18 05:24; Admin Dose 1 DROP; Start 08/16/18 at 18:00; Stop 08/23/18 at 17:59 Famotidine (Pepcid) 20 mg QHS PO ; Start 08/17/18 at 21:00 AMAYA MONDRAGON M.D. Aug 17, 2018 09:52
[2018-08-17] MEDS ORDERED: LIDOCAINE 1% (MDV) 20 ML INJ ONE (14:12)
[2018-08-17] MEDS ORDERED: LIDOCAINE 2% (SDV) 5 ML INJ ONE (14:16)
--- NOTE | 2018-08-17 14:18 | CONS ---
Consult Date/Type/Reason Admit Date/Time Aug 16, 2018 at 00:15 Initial Consult Date 08/17/18 Type of Consult Pulmonary Requesting Provider: HARMONY PETERSON MD Date/Time of Note DATE: 08/17/18 TIME: 14:17 Subjective Patient stable this morning denies shortness of breath. Objective Vital Signs Date Temp Pulse Resp B/P (MAP) Pulse Ox O2 O2 Flow FiO2 Time Delivery Rate 08/17/18 60 12:13 08/17/18 98.7 18 149/66 100 11:20 (93) 08/16/18 Room Air 19:14 08/15/18 21 23:15 Intake and Output 08/16/18 08/16/18 08/17/18 1414:59 22:59 06:59 IntakeIntake Total 1110 ml 150 ml OutputOutput Total 2400 ml BalanceBalance -1290 ml 150 ml Exam PHYSICAL EXAMINATION: GENERAL: Well-nourished, well-developed gentleman, appears comfortable at rest, in no acute distress. VITAL SIGNS: NECK: Supple. No JVD or lymphadenopathy. CARDIAC: S1, S2. No added sounds or murmurs. CHEST: Diminished air entry bilaterally. ABDOMEN: Soft, nontender. No guarding or rebound. EXTREMITIES: No cyanosis, clubbing. A 1+ edema. NEUROLOGIC: Generalized weakness. Vent Setting Fraction of Inspired Oxygen pe: 21 Results/Medications Result Diagram: 08/17/18 1147 08/17/18 0541 Results 24 hrs Laboratory Tests Test 08/17/18 05:41 08/17/18 10:22 08/17/18 11:47 White Blood Count 2.9 #L Red Blood Count 3.97 L Hemoglobin 11.9 L Hematocrit 36.3 L Mean Corpuscular Volume 91.4 Mean Corpuscular Hemoglobin 30.0 Mean Corpuscular Hemoglobin Concent 32.8 Red Cell Distribution Width 13.5 Platelet Count 88 L 123 L Mean Platelet Volume 11.7 H Immature Granulocytes % 0.300 Neutrophils % Segmented Neutrophils % (Manual) 53 Band Neutrophils % (Manual) 1 Lymphocytes % Lymphocytes % (Manual) 22 Monocytes % Monocytes % (Manual) 4 Eosinophils % Eosinophils % (Manual) 18 H Basophils % Basophils % (Manual) 1 Plasma Cells % (manual) 1 Nucleated Red Blood Cells % 0.0 Immature Granulocytes # 0.010 Neutrophils # Neutrophils # (Manual) 1.5 L Band Neutrophils # 0.0 Lymphocytes (Manual) 0.6 L Lymphocytes # Monocytes # Monocytes # (Manual) 0.1 L Eosinophils # Basophils # Basophils # (Manual) 0.0 Plasma Cells # (manual) 0.0 Nucleated Red Blood Cells # Platelet Estimate DECREASED Platelet Morphology Comment @See below Anisocytosis 1+ Macrocytosis 1+ Sodium Level 138 Potassium Level 5.1 Chloride Level 98 Carbon Dioxide Level 28 Anion Gap 12 Blood Urea Nitrogen 48 #H Creatinine 8.61 H Est Glomerular Filtrat Rate mL/min 6 L Glucose Level 94 # Calcium Level 8.5 Magnesium Level 2.5 Total Bilirubin 0.0 L Direct Bilirubin 0.00 Indirect Bilirubin 0.0 Aspartate Amino Transf (AST/SGOT) 10 L Alanine Aminotransferase (ALT/SGPT) 7 L Alkaline Phosphatase 54 Total Protein 7.5 Albumin 4.2 Globulin 3.30 H Albumin/Globulin Ratio 1.27 Triglycerides Level 48 Cholesterol Level 140 LDL Cholesterol, Calculated 68 HDL Cholesterol 62 Cholesterol/HDL Ratio 2.2 Carcinoembryonic Antigen 2.5 Thyroid Stimulating Hormone (TSH) 1.880 Free Thyroxine 1.41 Prothrombin Time 13.8 13.8 Prothrombin Time Ratio 1.1 1.1 INR International Normalized Ratio 1.05 1.05 Activated Partial Thromboplast Time 40.6 H Thrombin Time 15.4 Medications Current Medications Dextrose (D50w Syringe) ONCE PRN IV DECREASED GLUCOSE Last administered on 08/15/18at 23:48; Admin Dose 50 ML; Start 08/15/18 at 23:00 Zolpidem Tartrate (Ambien) 5 mg HS PRN PO INSOMNIA; Start 08/16/18 at 02:30 Acetaminophen (Tylenol Tab) 650 mg Q4H PRN PO MILD PAIN(1-3)OR ELEVATED TEMP; Start 08/16/18 at 02:30 Atropine Sulfate (Atropine 1% Oph) 1 drop BID BOTH EYES Last administered on 08/17/18 07:55; Admin Dose 1 DROP; Start 08/16/18 at 09:00 Minoxidil (Loniten) 2.5 mg BID PO Last administered on 08/17/18 07:58; Admin Dose 2.5 MG; Start 08/16/18 at 09:00 Losartan Potassium (Cozaar) 50 mg DAILY PO Last administered on 08/17/18 07:56; Admin Dose 50 MG; Start 08/16/18 at 09:00 Carvedilol (Coreg) 6.25 mg BID PO Last administered on 08/17/18at 07:58; Admin Dose 6.25 MG; Start 08/16/18 at 09:00 Clonidine (Catapres) 0.1 mg Q4H PRN PO ELEVATED BLOOD PRESSURE Last administered on 08/17/18at 00:15; Admin Dose 0.1 MG; Start 08/16/18 at 08:30 Isosorbide Mononitrate (Imdur) 60 mg DAILY PO Last administered on 08/17/18at 0 7:56; Admin Dose 60 MG; Start 08/16/18 at 11:00 Vancomycin HCl (Vanco Iv Per Pharmacy) VANCOMYCIN PER PHARMACY PER PROTOCOL XX ; Start 08/16/18 at 11:30 Piperacillin Sod/ Tazobactam Sod 50 ml @ 200 mls/hr Q8 IVPB Last administered on 08/17/18at 05:23; Admin Dose 200 MLS/HR; Start 08/16/18 at 14:00 Heparin Sodium (Porcine) (Heparin (1000 Units/ml)) 4,000 unit AFTER DIALYSIS CATHETER Last administered on 08/16/18at 18:25; Admin Dose 3,800 UNIT; Start 08/16/18 at 12:30 Albumin Human 100 ml @ 100 mls/hr WITH DIALYSIS PRN IV SBP <90 DURING DIALYSIS; Start 08/16/18 at 12:30 Sodium Chloride (NS) -To prime the dialy... DIRECTED FOR HD PRN IV HD; Start 08/16/18 at 12:30 Nifedipine (Procardia Xl) 60 mg BID PO Last administered on 08/17/18at 07:56; Admin Dose 60 MG; Start 08/16/18 at 21:00 Tobramycin Sulfate (Tobrex 0.3% Oph Drop) 1 drop Q6 LEFT EYE Last administered on 08/17/18at 12:16; Admin Dose 1 DROP; Start 08/16/18 at 18:00; Stop 08/23/18 at 17:59 Famotidine (Pepcid) 20 mg QHS PO ; Start 08/17/18 at 21:00 Assessment/Plan Hospital Course (Demo Recall) IMPRESSION Right lower lobe infiltrate in a patient with multiple medical problems. Right lower lobe mass infectious versus malignant. End-stage renal failure on hemodialysis RECOMMENDATIONS: 1. Treat infiltrate as community-acquired pneumonia. 2. I agree with cocci and TB workup. 3. Discussed with hematology oncology this morning. Agree with CT-guided biopsy. May be difficult to arrange this as an outpatient. NORMA RASMUSSEN MD, [facility] Aug 17, 2018 14:18
--- NOTE | 2018-08-17 15:15 | HPN ---
Date/Time of Note Date/Time of Note DATE: 08/17/18 TIME: 15:15 Interval H&P Admission Note Pt. seen H&P reviewed: No system changes YASMANY GARCIA MD Aug 17, 2018 15:15
--- NOTE | 2018-08-17 16:39 | CONS ---
Assessment/Plan Assessment/Plan Hospital Course (Demo Recall) assessment - URI, possible sinusitis, otitis. CT sinus on 08/16/2018 showed paranasal sinus mucosal disease - L retro-orbital pain and L corneal opacity (plus eye discharge according to Pt's RN's note), possible keratitis - b/l blindness - nodular density of RLL on CXR 08/15/2018, multiple nodular densities within RLL, a nodule in LLL on CT 08/16/2018 - DM - CAD - h/o WI - h/o CABG - ESRD on HD recommendations - pending results: resp culture, blood cultures (to draw during HD), quantiferon TB old, coccidioides serology, tissue (bacterial, fungal and AFB cultures, cytology), HIV test - ordered AFB smear and culture x3 of sputum - continue IV vancomycin, pip/tazo (08/15/2018-) - continue tobramycin eye drop (06/15/2019-) - place on Pt on airborne precautions until AFB is ruled out x3 management d/w Pt, his RN Angie Consultation Date/Type/Reason Admit Date/Time Aug 16, 2018 at 00:15 Initial Consult Date 08/17/18 Type of Consult ID Requesting Provider: HARMONY PETERSON MD Date/Time of Note DATE: 08/17/18 TIME: 16:34 24 HR Interval Summary Constitutional: no complaints Detailed Summary Eyes: no complaints ENT: pain (b/l ears, less than yesterday) Respiratory: cough, sputum; No pleuritic pain Cardiovascular: no complaints Gastrointestinal: no complaints Genitourinary: other (HD) Musculoskeletal: no complaints Skin: no complaints Neurologic: no complaints Exam/Review of Systems Exam Vitals Vital Signs Date Temp Pulse Resp B/P (MAP) Pulse Ox O2 O2 Flow FiO2 Time Delivery Rate 08/17/18 64 16:05 08/17/18 97.8 20 213/84 98 15:25 (127) 08/16/18 Room Air 19:14 08/15/18 21 23:15 Intake and Output 08/16/18 08/16/18 08/17/18 1515:00 23:00 07:00 IntakeIntake Total 1110 ml 150 ml OutputOutput Total 2400 ml BalanceBalance -1290 ml 150 ml Constitutional: alert, oriented, well developed Psych: no complaints, nl mood/affect Head: normocephalic, atraumatic Eyes: other (b/l blindness) ENMT: nl external ears & nose, nl nasal mucosa & septum, mucosa pink and moist, other (no pain over mastoid b/l) Neck: non-tender Respiratory: clear to auscultation, normal air movement Cardiovascular: regular rate and rhythm, nl pulses; No edema Gastrointestinal: soft, non-tender; No tender Extremities: No edema 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: nl mental status, nl speech, other (b/l blindness) Skin: nl turgor; No rash or lesions Results Result Diagram: 08/17/18 1147 08/17/18 0541 Results 24hrs Laboratory Tests Test 08/17/18 05:41 08/17/18 10:22 08/17/18 11:47 White Blood Count 2.9 #L Red Blood Count 3.97 L Hemoglobin 11.9 L Hematocrit 36.3 L Mean Corpuscular Volume 91.4 Mean Corpuscular Hemoglobin 30.0 Mean Corpuscular Hemoglobin Concent 32.8 Red Cell Distribution Width 13.5 Platelet Count 88 L 123 L Mean Platelet Volume 11.7 H Immature Granulocytes % 0.300 Neutrophils % Segmented Neutrophils % (Manual) 53 Band Neutrophils % (Manual) 1 Lymphocytes % Lymphocytes % (Manual) 22 Monocytes % Monocytes % (Manual) 4 Eosinophils % Eosinophils % (Manual) 18 H Basophils % Basophils % (Manual) 1 Plasma Cells % (manual) 1 Nucleated Red Blood Cells % 0.0 Immature Granulocytes # 0.010 Neutrophils # Neutrophils # (Manual) 1.5 L Band Neutrophils # 0.0 Lymphocytes (Manual) 0.6 L Lymphocytes # Monocytes # Monocytes # (Manual) 0.1 L Eosinophils # Basophils # Basophils # (Manual) 0.0 Plasma Cells # (manual) 0.0 Nucleated Red Blood Cells # Platelet Estimate DECREASED Platelet Morphology Comment @See below Anisocytosis 1+ Macrocytosis 1+ Sodium Level 138 Potassium Level 5.1 Chloride Level 98 Carbon Dioxide Level 28 Anion Gap 12 Blood Urea Nitrogen 48 #H Creatinine 8.61 H Est Glomerular Filtrat Rate mL/min 6 L Glucose Level 94 # Calcium Level 8.5 Magnesium Level 2.5 Total Bilirubin 0.0 L Direct Bilirubin 0.00 Indirect Bilirubin 0.0 Aspartate Amino Transf (AST/SGOT) 10 L Alanine Aminotransferase (ALT/SGPT) 7 L Alkaline Phosphatase 54 Total Protein 7.5 Albumin 4.2 Globulin 3.30 H Albumin/Globulin Ratio 1.27 Triglycerides Level 48 Cholesterol Level 140 LDL Cholesterol, Calculated 68 HDL Cholesterol 62 Cholesterol/HDL Ratio 2.2 Carcinoembryonic Antigen 2.5 Thyroid Stimulating Hormone (TSH) 1.880 Free Thyroxine 1.41 Prothrombin Time 13.8 13.8 Prothrombin Time Ratio 1.1 1.1 INR International Normalized Ratio 1.05 1.05 Activated Partial Thromboplast Time 40.6 H Thrombin Time 15.4 Medications Medication Current Medications Dextrose (D50w Syringe) ONCE PRN IV DECREASED GLUCOSE Last administered on 08/15/18at 23:48; Admin Dose 50 ML; Start 08/15/18 at 23:00 Zolpidem Tartrate (Ambien) 5 mg HS PRN PO INSOMNIA; Start 08/16/18 at 02:30 Acetaminophen (Tylenol Tab) 650 mg Q4H PRN PO MILD PAIN(1-3)OR ELEVATED TEMP; Start 08/16/18 at 02:30 Atropine Sulfate (Atropine 1% Oph) 1 drop BID BOTH EYES Last administered on 08/17/18 07:55; Admin Dose 1 DROP; Start 08/16/18 at 09:00 Minoxidil (Loniten) 2.5 mg BID PO Last administered on 08/17/18 07:58; Admin Dose 2.5 MG; Start 08/16/18 at 09:00 Losartan Potassium (Cozaar) 50 mg DAILY PO Last administered on 08/17/18 07:56; Admin Dose 50 MG; Start 08/16/18 at 09:00 Carvedilol (Coreg) 6.25 mg BID PO Last administered on 08/17/18 07:58; Admin Dose 6.25 MG; Start 08/16/18 at 09:00 Clonidine (Catapres) 0.1 mg Q4H PRN PO ELEVATED BLOOD PRESSURE Last administered on 08/17/18 15:58; Admin Dose 0.1 MG; Start 08/16/18 at 08:30 Isosorbide Mononitrate (Imdur) 60 mg DAILY PO Last administered on 08/17/18 07:56; Admin Dose 60 MG; Start 08/16/18 at 11:00 Vancomycin HCl (Vanco Iv Per Pharmacy) VANCOMYCIN PER PHARMACY PER PROTOCOL XX ; Start 08/16/18 at 11:30 Piperacillin Sod/ Tazobactam Sod 50 ml @ 200 mls/hr Q8 IVPB Last administered on 08/17/18at 05:23; Admin Dose 200 MLS/HR; Start 08/16/18 at 14:00 Heparin Sodium (Porcine) (Heparin (1000 Units/ml)) 4,000 unit AFTER DIALYSIS CATHETER Last administered on 08/16/18at 18:25; Admin Dose 3,800 UNIT; Start 08/16/18 at 12:30 Albumin Human 100 ml @ 100 mls/hr WITH DIALYSIS PRN IV SBP <90 DURING DIALYSIS; Start 08/16/18 at 12:30 Sodium Chloride (NS) -To prime the dialy... DIRECTED FOR HD PRN IV HD; Start 08/16/18 at 12:30 Nifedipine (Procardia Xl) 60 mg BID PO Last administered on 08/17/18at 07:56; Admin Dose 60 MG; Start 08/16/18 at 21:00 Tobramycin Sulfate (Tobrex 0.3% Oph Drop) 1 drop Q6 LEFT EYE Last administered on 08/17/18at 12:16; Admin Dose 1 DROP; Start 08/16/18 at 18:00; Stop 08/23/18 at 17:59 Famotidine (Pepcid) 20 mg QHS PO ; Start 08/17/18 at 21:00 ANTONY RAND M.D. Aug 17, 2018 16:39
[2018-08-17] MEDS: FAMOTIDINE 20 MG TAB PO SCH (21:19)
[2018-08-17] MEDS: HEPARIN 1000 UNITS/ML 10 ML INJ CATHETER SCH (22:02)
--- NOTE | 2018-08-17 22:40 | PN ---
DATE: 08/17/2018 SUBJECTIVE: The patient is here for follow up on upper respiratory infection, coronary artery diseas e, diabetes, end-stage renal disease, pulmonary nodules. The patient reported retroorbital pain is m uch better. The patient does not have any significant eye discharge. The patient is legally blind f or last several years. No reported fever or chills. He denies any chest pain, no reported vomiting. PHYSICAL EXAMINATION: GENERAL: The patient is awake, alert. VITAL SIGNS: Blood pressure 167/77, temperature 97.8, pulse 63, respirations 20. HEENT: No eye discharge. The patient has left corneal opacity. Nose and ears normal externally. NECK: No mass, no JVD. CHEST: Fairly clear. CARDIOVASCULAR: S1, S2 normal, no murmur. ABDOMEN: Soft, nontender. Bowel sounds plus. EXTREMITIES: No leg edema. Pedal pulses palpable. SKIN: Without acute rash or ulcer. NEUROLOGIC: The patient is awake, alert, fairly oriented with no gross focal deficit. LABORATORY DATA: Done this morning, WBC 2.9, hemoglobin 9.9, platelet 88. Sodium 138, potassium 5.1 , BUN 48, creatinine 8.6, glucose 94. LDL 68. TSH 1.8. CEA 2.5. 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 Chest CT revealed multiple nodular densities. IMPRESSION AND PLAN: 1. Upper respiratory infection. Continue empiric Zosyn and IV vancomycin. 2. Coronary artery disease, no anginal chest pain. Continue Imdur and Procardia. Coreg as tolerate d due to sinus bradycardia. 3. Hypertension. We will increase Minoxidil as patient's blood pressure this morning was about 200. 4. Multiple nodular density, workup underway. The patient underwent CT-guided needle biopsy of the right lung mass. Path pending. 5. End-stage renal disease. Continue hemodialysis. The patient is being seen by Dr. Garcia from ca rdiac standpoint, Dr. Shine from infectious disease standpoint, Dr. Natalee Ortez from nephrology stand point and Dr. Ramirez from oncology standpoint. The patient was also seen by Dr. Olson from pulmonar y standpoint. Dictated By: HARMONY LOUIS/MAISHA Conf#: [id number] [facility]#: [id number] CC: ANTONY SHINE MD; HARMONY PETERSON MD;*[facility]*
[2018-08-18] VITALS (12 sets, daily range): BP systolic 144–194; BP diastolic 68–86; PULSE 60–66; RESP 17–20
[2018-08-18] MEDS: PIPER-TAZO 2.25 GM (PMX) 50 ML IVPB SCH ×3 (05:01→21:22)
[2018-08-18] MEDS: TOBRAMYCIN 0.3% 5 ML OPH LEFT EYE SCH ×3 (05:02→17:30)
--- NOTE | 2018-08-18 08:06 | CONS ---
Consult Date/Type/Reason Admit Date/Time Aug 16, 2018 at 00:15 Initial Consult Date 08/16/18 Type of Consultation: cv Requesting Provider: HARMONY PETERSON MD Date/Time of Note DATE: 08/18/18 TIME: 08:02 Subjective Cardiology follow-up progress note Subjective: Discussed with the staff telemetry was reviewed patient with normal sinus rhythm/sinus bradycardia Patient with no chest pain or pressure. His cough is improving No bleeding is reported. Objective: General: no acute distress HEENT: NC/AT. . NECK: NO JVD. no stridor. CV: RRR. systolic murmur; no gallop or rubs. PULM: no wheezing or rhonchi. GI: SOFT, NT, ND, no rebound or guarding Extremity: trace B/L LE edema. no clubbing. neuro: awake and alert, OX3. Psych: calm and pleasant rectal: deferred : normal EKG was personally within normal sinus rhythm nonspecific ST abnormalities Chest x-ray shows: Mild cardiomegaly. Mild pulmonary vascular congestion. Calcified aorta consistent with atherosclerotic disease. 3.8 cm right lower lobe nodular opacity. Follow-up CT chest is recommended. Echocardiogram done 08/16/2018 shows: Normal left ventricular systolic function. Normal left ventricular cavity size. Ejection fraction is visually estimated at 60 %. Tissue Doppler/Mitral Doppler indices are consistent with impaired relaxation (Stage I diastolic dysfunction). Mild mitral leaflet calcification. Mild mitral annular calcification. Mild mitral valve regurgitation. No significant aortic stenosis or insufficiency. Aortic cusps appear mildly calcified. Normal appearance of the tricuspid valve. Estimated peak PA systolic pressure 36 mmHg. There is mild tricuspid regurgitation. CT of the chest on 08/13/2018 shows: Multiple nodular densities are seen within the right lower lobe and this corresponds to the abnormality on prior chest radiograph. There is also a nodule in the left lower lobe. These could represent infectious nodular opacities or could represent neoplastic lesions. This can be correlated with clinical findings and biopsy may be considered as clinically warranted. Follow-up CT is recommended after 3 months. Renal atrophy is present with mild cardiomegaly and faint pulmonary edema. Atherosclerotic disease is present. There is a fecal filled colon with diverticulosis. Objective Vitals Vital Signs Date Temp Pulse Resp B/P (MAP) Pulse Ox O2 O2 Flow FiO2 Time Delivery Rate 08/18/18 97.2 64 20 163/78 98 Room Air 07:23 (106) 08/15/18 21 23:15 Intake and Output 08/17/18 08/17/18 08/18/18 1515:00 23:00 07:00 IntakeIntake Total 700 ml 550 ml OutputOutput Total 2000 ml BalanceBalance -1300 ml 550 ml Results/Medications Result Diagram: 08/17/18 1147 08/17/18 0541 Results 24 hrs Laboratory Tests Test 08/17/18 10:22 08/17/18 11:47 08/18/18 05:05 Prothrombin Time 13.8 13.8 Prothrombin Time Ratio 1.1 1.1 INR International Normalized Ratio 1.05 1.05 Platelet Count 123 L Activated Partial Thromboplast Time 40.6 H Thrombin Time 15.4 Random Vancomycin Level 10.5 Home Meds Reported Medications Nifedipine* (Nifedipine ER*) 90 Mg Tablet.er, 90 MG PO DAILY, TAB 08/15/18 Carvedilol* (Carvedilol*) 6.25 Mg Tablet, 6.25 MG PO BID, #60 TAB 08/15/18 Isosorbide Mononitrate* (Isosorbide Mononitrate*) 60 Mg Tab.er.24h, 60 MG PO DAILY, TAB 08/15/18 Losartan Potassium* (Losartan Potassium*) 50 Mg Tablet, 50 MG PO DAILY, TAB 08/15/18 Minoxidil* (Lonitin*) 2.5 Mg Tab, 2.5 MG PO BID, TAB 08/15/18 Famotidine* (Famotidine*) 20 Mg Tablet, 20 MG PO BID, #60 TAB 08/15/18 Atropine Sulfate/0.9 %Sod Chlr (Atropine 0.01%-Ns Eye Drops) 10 Ml Drops, 15 ML OP BID, BOTTLE 08/15/18 Tamsulosin Hcl* (Tamsulosin Hcl*) 0.4 Mg Cap.er.24h, 0.4 MG PO DAILY, CAP 08/15/18 Clonidine Hcl* (Clonidine Hcl*) 0.1 Mg Tab, 0.2 MG PO BID PRN for ELEVATED BLOOD PRESSURE, TAB 08/15/18 Sevelamer Carbonate* (Renvela*) 800 Mg Tablet, 0.8 GM PO WITH MEALS, TAB 08/15/18 Medications Current Medications Dextrose (D50w Syringe) ONCE PRN IV DECREASED GLUCOSE Last administered on 08/15/18 23:48; Admin Dose 50 ML; Start 08/15/18 at 23:00 Zolpidem Tartrate (Ambien) 5 mg HS PRN PO INSOMNIA; Start 08/16/18 at 02:30 Acetaminophen (Tylenol Tab) 650 mg Q4H PRN PO MILD PAIN(1-3)OR ELEVATED TEMP Last administered on 08/17/18 23:42; Admin Dose 650 MG; Start 08/16/18 at 02:30 Atropine Sulfate (Atropine 1% Oph) 1 drop BID BOTH EYES Last administered on 08/17/18 21:15; Admin Dose 1 DROP; Start 08/16/18 at 09:00 Losartan Potassium (Cozaar) 50 mg DAILY PO Last administered on 08/17/18 07 :56; Admin Dose 50 MG; Start 08/16/18 at 09:00 Carvedilol (Coreg) 6.25 mg BID PO Last administered on 08/17/18 07:58; Admin Dose 6.25 MG; Start 08/16/18 at 09:00 Clonidine (Catapres) 0.1 mg Q4H PRN PO ELEVATED BLOOD PRESSURE Last administered on 08/17/18 23:42; Admin Dose 0.1 MG; Start 08/16/18 at 08:30 Isosorbide Mononitrate (Imdur) 60 mg DAILY PO Last administered on 08/17/18 07:56; Admin Dose 60 MG; Start 08/16/18 at 11:00 Vancomycin HCl (Vanco Iv Per Pharmacy) VANCOMYCIN PER PHARMACY PER PROTOCOL XX ; Start 08/16/18 at 11:30 Piperacillin Sod/ Tazobactam Sod 50 ml @ 200 mls/hr Q8 IVPB Last administered on 08/18/18 05:01; Admin Dose 200 MLS/HR; Start 08/16/18 at 14:00 Heparin Sodium (Porcine) (Heparin (1000 Units/ml)) 4,000 unit AFTER DIALYSIS CATHETER Last administered on 08/17/18 22:02; Admin Dose 4,000 UNIT; Start 08/16/18 at 12:30 Albumin Human 100 ml @ 100 mls/hr WITH DIALYSIS PRN IV SBP <90 DURING DIALYSIS; Start 08/16/18 at 12:30 Sodium Chloride (NS) -To prime the dialy... DIRECTED FOR HD PRN IV HD; Start 08/16/18 at 12:30 Nifedipine (Procardia Xl) 60 mg BID PO Last administered on 08/17/18at 21:16; Admin Dose 60 MG; Start 08/16/18 at 21:00 Tobramycin Sulfate (Tobrex 0.3% Oph Drop) 1 drop Q6 LEFT EYE Last administered on 08/18/18 05:02; Admin Dose 1 DROP; Start 08/16/18 at 18:00; Stop 08/23/18 at 17:59 Famotidine (Pepcid) 20 mg QHS PO Last administered on 08/17/18at 21:19; Admin Dose 20 MG; Start 08/17/18 at 21:00 Minoxidil (Loniten) 5 mg BID PO Last administered on 08/17/18at 21:19; Admin Dose 5 MG; Start 08/17/18 at 21:00 Assessment/Plan Hospital Course (Demo Recall) 1. Hypertensive urgency/resistant hypertension 2. History of coronary artery disease 3. History of most likely [place] and coronary artery bypass graft 4. Renal failure on dialysis 5. Pulmonary vascular congestion/fluid overload 6. Diabetes 7. Dyslipidemia 8. Hyperkalemia 9. Pulmonary nodule Recommendations: Continue with the Coreg Procardia. Continue with minoxidil Continue with losartan as long as okay with renal and hyperkalemia Clonidine will be continued as a as needed as well. Lipid panel reviewed and showed LDL at goal of less than 70 Hemodialysis as per renal follow up with pulmonary recommendations Thank you for his referral. We will continue to follow along with you NAHUN RUSSELL MD [facility] NAHUN RUSSELL MD Aug 18, 2018 08:06
[2018-08-18] MEDS: NIFEdipine (XL) 60 MG TAB PO SCH ×2 (08:33→20:52)
[2018-08-18] MEDS: LOSARTAN 50 MG TAB PO SCH (08:34)
[2018-08-18] MEDS: ISOSORBIDE MONONITRATE(SR)60 MG TAB PO SCH (08:34)
[2018-08-18] MEDS: MINOXIDIL 2.5 MG TAB PO SCH ×2 (08:34→20:50)
[2018-08-18] MEDS: ATROPINE 1% 5 ML OPH BOTH EYES SCH ×2 (08:35→20:53)
--- NOTE | 2018-08-18 10:00 | PN ---
Date/Time of Note Date/Time of Note DATE: 08/18/18 TIME: 10:00 Assessment/Plan VTE Prophylaxis Risk score (from Ns)>0 risk: 4 SCD applied (from Nsg): Yes Lines/Catheters IV Catheter Type (from Nrs): Peripheral IV Urinary Cath still in place: No Assessment/Plan Assessment/Plan 1. Pneumonia. Continue cefepime. The patient clinically has been improving. 2. Status post nausea, vomiting, and abdominal pain. Workup underway. The patient will go for a paracentesis today. The patient was seen by Dr. Valente from GI standpoint. 3. Hypertension. 4. Coronary artery disease. The patient is being followed by Dr. Garcia. Continue Norvasc, aspirin, Zestril, lisinopril. 6. Diabetes. Blood sugar reasonably controlled with current dose of Lantus and sliding scale insulin. 7. History of coronary artery disease. Continue aspirin. 8. End-stage renal disease. The patient is being followed by Dr. Hines from nephrology standpoint. Continue hemodialysis. Further recommendation will depend on hospital course. Result Diagram: 08/17/18 1147 08/17/18 0541 Results 24hrs Laboratory Tests Test 08/17/18 10:22 08/17/18 11:47 08/18/18 05:05 Prothrombin Time 13.8 13.8 Prothrombin Time Ratio 1.1 1.1 INR International Normalized Ratio 1.05 1.05 Platelet Count 123 L Activated Partial Thromboplast Time 40.6 H Thrombin Time 15.4 Random Vancomycin Level 10.5 HIV (1&2) Antibody NEGATIVE Exam/Review of Systems Exam Vitals Vital Signs Date Temp Pulse Resp B/P (MAP) Pulse Ox O2 O2 Flow FiO2 Time Delivery Rate 08/18/18 64 08:16 08/18/18 97.2 20 163/78 98 Room Air 07:23 (106) 08/15/18 21 23:15 Intake and Output 08/17/18 08/17/18 08/18/18 1515:00 23:00 07:00 IntakeIntake Total 700 ml 550 ml OutputOutput Total 2000 ml BalanceBalance -1300 ml 550 ml Results Results 24hrs Laboratory Tests Test 08/17/18 10:22 08/17/18 11:47 08/18/18 05:05 Prothrombin Time 13.8 13.8 Prothrombin Time Ratio 1.1 1.1 INR International Normalized Ratio 1.05 1.05 Platelet Count 123 L Activated Partial Thromboplast Time 40.6 H Thrombin Time 15.4 Random Vancomycin Level 10.5 HIV (1&2) Antibody NEGATIVE Medications Medication Current Medications Dextrose (D50w Syringe) ONCE PRN IV DECREASED GLUCOSE Last administered on 08/15/18 23:48; Admin Dose 50 ML; Start 08/15/18 at 23:00 Zolpidem Tartrate (Ambien) 5 mg HS PRN PO INSOMNIA; Start 08/16/18 at 02:30 Acetaminophen (Tylenol Tab) 650 mg Q4H PRN PO MILD PAIN(1-3)OR ELEVATED TEMP Last administered on 08/17/18 23:42; Admin Dose 650 MG; Start 08/16/18 at 02:30 Atropine Sulfate (Atropine 1% Oph) 1 drop BID BOTH EYES Last administered on 08/18/18 08:35; Admin Dose 1 DROP; Start 08/16/18 at 09:00 Losartan Potassium (Cozaar) 50 mg DAILY PO Last administered on 08/18/18 08:34; Admin Dose 50 MG; Start 08/16/18 at 09:00 Carvedilol (Coreg) 6.25 mg BID PO Last administered on 08/18/18 08:34; Admin Dose 6.25 MG; Start 08/16/18 at 09:00 Clonidine (Catapres) 0.1 mg Q4H PRN PO ELEVATED BLOOD PRESSURE Last administered on 08/17/18 23:42; Admin Dose 0.1 MG; Start 08/16/18 at 08:30 Isosorbide Mononitrate (Imdur) 60 mg DAILY PO Last administered on 08/18/18 08:34; Admin Dose 60 MG; Start 08/16/18 at 11:00 Vancomycin HCl (Vanco Iv Per Pharmacy) VANCOMYCIN PER PHARMACY PER PROTOCOL XX ; Start 08/16/18 at 11:30 Piperacillin Sod/ Tazobactam Sod 50 ml @ 200 mls/hr Q8 IVPB Last administered on 08/18/18 05:01; Admin Dose 200 MLS/HR; Start 08/16/18 at 14:00 Heparin Sodium (Porcine) (Heparin (1000 Units/ml)) 4,000 unit AFTER DIALYSIS CATHETER Last administered on 2/27/19at 22:02; Admin Dose 4,000 UNIT; Start 08/16/18 at 12:30 Albumin Human 100 ml @ 100 mls/hr WITH DIALYSIS PRN IV SBP <90 DURING DIALYSIS; Start 08/16/18 at 12:30 Sodium Chloride (NS) -To prime the dialy... DIRECTED FOR HD PRN IV HD; Start 08/16/18 at 12:30 Nifedipine (Procardia Xl) 60 mg BID PO Last administered on 08/18/18at 08:33; Admin Dose 60 MG; Start 08/16/18 at 21:00 Tobramycin Sulfate (Tobrex 0.3% Oph Drop) 1 drop Q6 LEFT EYE Last administered on 08/18/18at 05:02; Admin Dose 1 DROP; Start 08/16/18 at 18:00; Stop 08/23/18 at 17:59 Famotidine (Pepcid) 20 mg QHS PO Last administered on 08/17/18at 21:19; Admin Dose 20 MG; Start 08/17/18 at 21:00 Minoxidil (Loniten) 5 mg BID PO Last administered on 08/18/18at 08:34; Admin Dose 5 MG; Start 08/17/18 at 21:00 COREY SARAVIA Aug 18, 2018 10:00
--- NOTE | 2018-08-18 10:01 | PN ---
Date/Time of Note Date/Time of Note DATE: 08/18/18 TIME: 10:00 Assessment/Plan VTE Prophylaxis Risk score (from Ns)>0 risk: 4 SCD applied (from Nsg): Yes Lines/Catheters IV Catheter Type (from Nrs): Peripheral IV Urinary Cath still in place: No Assessment/Plan Result Diagram: 08/17/18 1147 08/17/18 0541 Results 24hrs Laboratory Tests Test 08/17/18 10:22 08/17/18 11:47 08/18/18 05:05 Prothrombin Time 13.8 13.8 Prothrombin Time Ratio 1.1 1.1 INR International Normalized Ratio 1.05 1.05 Platelet Count 123 L Activated Partial Thromboplast Time 40.6 H Thrombin Time 15.4 Random Vancomycin Level 10.5 HIV (1&2) Antibody NEGATIVE Exam/Review of Systems Exam Vitals Vital Signs Date Temp Pulse Resp B/P (MAP) Pulse Ox O2 O2 Flow FiO2 Time Delivery Rate 08/18/18 64 08:16 08/18/18 97.2 20 163/78 98 Room Air 07:23 (106) 08/15/18 21 23:15 Intake and Output 08/17/18 08/17/18 08/18/18 1515:00 23:00 07:00 IntakeIntake Total 700 ml 550 ml OutputOutput Total 2000 ml BalanceBalance -1300 ml 550 ml Results Results 24hrs Laboratory Tests Test 08/17/18 10:22 08/17/18 11:47 08/18/18 05:05 Prothrombin Time 13.8 13.8 Prothrombin Time Ratio 1.1 1.1 INR International Normalized Ratio 1.05 1.05 Platelet Count 123 L Activated Partial Thromboplast Time 40.6 H Thrombin Time 15.4 Random Vancomycin Level 10.5 HIV (1&2) Antibody NEGATIVE Medications Medication Current Medications Dextrose (D50w Syringe) ONCE PRN IV DECREASED GLUCOSE Last administered on 08/15/18at 23:48; Admin Dose 50 ML; Start 08/15/18 at 23:00 Zolpidem Tartrate (Ambien) 5 mg HS PRN PO INSOMNIA; Start 08/16/18 at 02:30 Acetaminophen (Tylenol Tab) 650 mg Q4H PRN PO MILD PAIN(1-3)OR ELEVATED TEMP Last administered on 08/17/18at 23:42; Admin Dose 650 MG; Start 08/16/18 at 02:30 Atropine Sulfate (Atropine 1% Oph) 1 drop BID BOTH EYES Last administered on 08/18/18 08:35; Admin Dose 1 DROP; Start 08/16/18 at 09:00 Losartan Potassium (Cozaar) 50 mg DAILY PO Last administered on 08/18/18 08:34; Admin Dose 50 MG; Start 08/16/18 at 09:00 Carvedilol (Coreg) 6.25 mg BID PO Last administered on 08/18/18 08:34; Admin Dose 6.25 MG; Start 08/16/18 at 09:00 Clonidine (Catapres) 0.1 mg Q4H PRN PO ELEVATED BLOOD PRESSURE Last administered on 08/17/18 23:42; Admin Dose 0.1 MG; Start 08/16/18 at 08:30 Isosorbide Mononitrate (Imdur) 60 mg DAILY PO Last administered on 08/18/18 08:34; Admin Dose 60 MG; Start 08/16/18 at 11:00 Vancomycin HCl (Vanco Iv Per Pharmacy) VANCOMYCIN PER PHARMACY PER PROTOCOL XX ; Start 08/16/18 at 11:30 Piperacillin Sod/ Tazobactam Sod 50 ml @ 200 mls/hr Q8 IVPB Last administered on 08/18/18 05:01; Admin Dose 200 MLS/HR; Start 08/16/18 at 14:00 Heparin Sodium (Porcine) (Heparin (1000 Units/ml)) 4,000 unit AFTER DIALYSIS CATHETER Last administered on 08/17/18 22:02; Admin Dose 4,000 UNIT; Start 08/16/18 at 12:30 Albumin Human 100 ml @ 100 mls/hr WITH DIALYSIS PRN IV SBP <90 DURING DIALYSIS; Start 08/16/18 at 12:30 Sodium Chloride (NS) -To prime the dialy... DIRECTED FOR HD PRN IV HD; Start 08/16/18 at 12:30 Nifedipine (Procardia Xl) 60 mg BID PO Last administered on 08/18/18 08:33; Admin Dose 60 MG; Start 08/16/18 at 21:00 Tobramycin Sulfate (Tobrex 0.3% Oph Drop) 1 drop Q6 LEFT EYE Last administered on 08/18/18 05:02; Admin Dose 1 DROP; Start 08/16/18 at 18:00; Stop 08/23/18 at 17:59 Famotidine (Pepcid) 20 mg QHS PO Last administered on 08/17/18at 21:19; Admin Dose 20 MG; Start 08/17/18 at 21:00 Minoxidil (Loniten) 5 mg BID PO Last administered on 08/18/18at 08:34; Admin Dose 5 MG; Start 08/17/18 at 21:00 COREY SARAVIA Aug 18, 2018 10:01
--- NOTE | 2018-08-18 10:29 | CONS ---
Assessment/Plan Assessment/Plan Assessment/Plan (Daily) 1. acute hyperkalemia - resolved now 2. ESRD on HD MWF 3. accelerateD HTN - improving BP control 4. acute chest pain 5.type II DM with hyperglycemia 6. H/o HTN Plan: Nifedipine 60mg pO BID, s/p HD yesterday 2 L removed, BP stable , HD ordered for wednesday pt regular schedule for HD is MWF Cocci serology has been ordered IV abx as per ID will follow up Consultation Date/Type/Reason Admit Date/Time Aug 16, 2018 at 00:15 Initial Consult Date 08/16/18 Type of Consult NEPHROLOGY Requesting Provider: HARMONY PETERSON MD Date/Time of Note DATE: 08/18/18 TIME: 10:29 24 HR Interval Summary Free Text/Dictation HD ordered for Wednesday, on IV abx Exam/Review of Systems Exam Vitals Vital Signs Date Temp Pulse Resp B/P (MAP) Pulse Ox O2 O2 Flow FiO2 Time Delivery Rate 08/18/18 64 08:16 08/18/18 97.2 20 163/78 98 Room Air 07:23 (106) 08/15/18 21 23:15 Intake and Output 08/17/18 08/17/18 08/18/18 1515:00 23:00 07:00 IntakeIntake Total 700 ml 550 ml OutputOutput Total 2000 ml BalanceBalance -1300 ml 550 ml Results Result Diagram: 08/17/18 1147 08/17/18 0541 Results 24hrs Laboratory Tests Test 08/17/18 11:47 08/18/18 05:05 Platelet Count 123 L Prothrombin Time 13.8 Prothrombin Time Ratio 1.1 INR International Normalized Ratio 1.05 Activated Partial Thromboplast Time 40.6 H Thrombin Time 15.4 Random Vancomycin Level 10.5 HIV (1&2) Antibody NEGATIVE Medications Medication Current Medications Dextrose (D50w Syringe) ONCE PRN IV DECREASED GLUCOSE Last administered on 08/15/18at 23:48; Admin Dose 50 ML; Start 08/15/18 at 23:00 Zolpidem Tartrate (Ambien) 5 mg HS PRN PO INSOMNIA; Start 08/16/18 at 02:30 Atropine Sulfate (Atropine 1% Oph) 1 drop BID BOTH EYES Last administered on 08/18/18at 08:35; Admin Dose 1 DROP; Start 08/16/18 at 09:00 Losartan Potassium (Cozaar) 50 mg DAILY PO Last administered on 08/18/18 08:34; Admin Dose 50 MG; Start 08/16/18 at 09:00 Carvedilol (Coreg) 6.25 mg BID PO Last administered on 08/18/18 08:34; Admin Dose 6.25 MG; Start 08/16/18 at 09:00 Clonidine (Catapres) 0.1 mg Q4H PRN PO ELEVATED BLOOD PRESSURE Last administered on 08/17/18 23:42; Admin Dose 0.1 MG; Start 08/16/18 at 08:30 Isosorbide Mononitrate (Imdur) 60 mg DAILY PO Last administered on 08/18/18 08:34; Admin Dose 60 MG; Start 08/16/18 at 11:00 Vancomycin HCl (Vanco Iv Per Pharmacy) VANCOMYCIN PER PHARMACY PER PROTOCOL XX ; Start 08/16/18 at 11:30 Piperacillin Sod/ Tazobactam Sod 50 ml @ 200 mls/hr Q8 IVPB Last administered on 08/18/18 05:01; Admin Dose 200 MLS/HR; Start 08/16/18 at 14:00 Heparin Sodium (Porcine) (Heparin (1000 Units/ml)) 4,000 unit AFTER DIALYSIS CATHETER Last administered on 08/17/18 22:02; Admin Dose 4,000 UNIT; Start 08/16/18 at 12:30 Albumin Human 100 ml @ 100 mls/hr WITH DIALYSIS PRN IV SBP <90 DURING DIALYSIS; Start 08/16/18 at 12:30 Sodium Chloride (NS) -To prime the dialy... DIRECTED FOR HD PRN IV HD; Start 08/16/18 at 12:30 Nifedipine (Procardia Xl) 60 mg BID PO Last administered on 08/18/18 08:33; Admin Dose 60 MG; Start 08/16/18 at 21:00 Tobramycin Sulfate (Tobrex 0.3% Oph Drop) 1 drop Q6 LEFT EYE Last administered on 08/18/18 05:02; Admin Dose 1 DROP; Start 08/16/18 at 18:00; Stop 08/23/18 at 17:59 Famotidine (Pepcid) 20 mg QHS PO Last administered on 08/17/18 21:19; Admin Dose 20 MG; Start 08/17/18 at 21:00 Minoxidil (Loniten) 5 mg BID PO Last administered on 08/18/18at 08:34; Admin Dose 5 MG; Start 08/17/18 at 21:00 Acetaminophen (Tylenol Tab) 650 mg Q6H PRN PO MILD PAIN(1-3)OR ELEVATED TEMP Last administered on 08/18/18at 10:26; Admin Dose 650 MG; Start 08/18/18 at 10:30 Miscellaneous Information (* Miscellaneous Pharmacy Order) Discontinue current oral sulfonylur... ONCE ONCE XX Last administered on 08/18/18at 10:25; Admin Dose 1 EA; Start 08/18/18 at 10:30; Stop 08/18/18 at 10:31 Diagnostic Test (Pha) (Accu-Chek) 1 ea 02 XX ; Start 08/19/18 at 02:00 Miscellaneous Information (* Miscellaneous Pharmacy Order) HYPOGLYCEMIA PROTOCOL w... ONCE ONCE XX Last administered on 08/18/18at 10:25; Admin Dose 1 EA; Start 08/18/18 at 10:30; Stop 08/18/18 at 10:31 Insulin Aspart (Novolog Insulin Pen) NOVOLOG *MILD* ALGORITHM WITH MEALS BEDTIME SC ; Start 08/18/18 at 12:00 Insulin Aspart (Novolog Insulin Pen) NOVOLOG *MILD* ALGORI... Q4 SC ; Start 08/18/18 at 13:00 Miscellaneous Information 1 ea NOTE XX ; Start 08/18/18 at 10:30 Glucose (Glutose) 15 gm Q15M PRN PO DECREASED GLUCOSE; Start 08/18/18 at 10:30 Glucose (Glutose) 22.5 gm Q15M PRN PO DECREASED GLUCOSE; Start 08/18/18 at 10:30 Dextrose (D50w Syringe) 25 ml Q15M PRN IV DECREASED GLUCOSE; Start 08/18/18 at 10:30 Dextrose (D50w Syringe) 50 ml Q15M PRN IV DECREASED GLUCOSE; Start 08/18/18 at 10:30 Glucagon (Glucagen) 1 mg Q15M PRN IM DECREASED GLUCOSE; Start 08/18/18 at 10:30 Glucose (Glutose) 15 gm Q15M PRN BUCCAL DECREASED GLUCOSE; Start 08/18/18 at 10:30 VALERIA RODRÍGUEZ MD Aug 18, 2018 10:29
[2018-08-18] MEDS ORDERED: DEXTROSE 50% 50 ML SYRINGE IV PRN ×2 (10:30)
[2018-08-18] MEDS ORDERED: GLUCOSE GEL 15 GRAM TUBE PO PRN ×2 (10:30)
[2018-08-18] MEDS ORDERED: GLUCOSE GEL 15 GRAM TUBE BUCCAL PRN (10:30)
[2018-08-18] MEDS ORDERED: GLUCAGON 1 MG INJ IM PRN (10:30)
[2018-08-18] MEDS ORDERED: ACETAMINOPHEN 325 MG TAB PO PRN (10:30)
[2018-08-18] MEDS: INSULIN ASPART [NOVOLOG] 3 ML PEN SC SCH ×6 (11:26→21:00)
--- NOTE | 2018-08-18 12:13 | CONS ---
Consult Date/Type/Reason Admit Date/Time Aug 16, 2018 at 00:15 Initial Consult Date 08/17/18 Type of Consult Pulmonary Requesting Provider: HARMONY PETERSON MD Date/Time of Note DATE: 08/18/18 TIME: 12:12 Subjective Patient comfortable no new events Objective Vital Signs Date Temp Pulse Resp B/P (MAP) Pulse Ox O2 O2 Flow FiO2 Time Delivery Rate 08/18/18 60 12:08 08/18/18 97.8 20 184/86 98 Room Air 11:03 (118) 08/15/18 21 23:15 Intake and Output 08/17/18 08/17/18 08/18/18 1515:00 23:00 07:00 IntakeIntake Total 700 ml 550 ml OutputOutput Total 2000 ml BalanceBalance -1300 ml 550 ml Exam PHYSICAL EXAMINATION: GENERAL: Well-nourished, well-developed gentleman, appears comfortable at rest, in no acute distress. VITAL SIGNS: NECK: Supple. No JVD or lymphadenopathy. CARDIAC: S1, S2. No added sounds or murmurs. CHEST: Diminished air entry bilaterally. ABDOMEN: Soft, nontender. No guarding or rebound. EXTREMITIES: No cyanosis, clubbing. A 1+ edema. NEUROLOGIC: Generalized weakness. Vent Setting Fraction of Inspired Oxygen pe: 21 Results/Medications Result Diagram: 08/17/18 1147 08/17/18 0541 Results 24 hrs Laboratory Tests Test 08/18/18 05:05 08/18/18 11:21 08/18/18 11:48 Random Vancomycin Level 10.5 HIV (1&2) Antibody NEGATIVE Bedside Glucose 184 White Blood Count Pending Red Blood Count Pending Hemoglobin Pending Hematocrit Pending Mean Corpuscular Volume Pending Mean Corpuscular Hemoglobin Pending Mean Corpuscular Hemoglobin Concent Pending Red Cell Distribution Width Pending Platelet Count Pending Mean Platelet Volume Pending Medications Current Medications Dextrose (D50w Syringe) ONCE PRN IV DECREASED GLUCOSE Last administered on 08/15/18at 23:48; Admin Dose 50 ML; Start 08/15/18 at 23:00 Zolpidem Tartrate (Ambien) 5 mg HS PRN PO INSOMNIA; Start 08/16/18 at 02:30 Atropine Sulfate (Atropine 1% Oph) 1 drop BID BOTH EYES Last administered on 08/18/18at 08:35; Admin Dose 1 DROP; Start 08/16/18 at 09:00 Losartan Potassium (Cozaar) 50 mg DAILY PO Last administered on 08/18/18 08:34; Admin Dose 50 MG; Start 08/16/18 at 09:00 Carvedilol (Coreg) 6.25 mg BID PO Last administered on 08/18/18 08:34; Admin Dose 6.25 MG; Start 08/16/18 at 09:00 Clonidine (Catapres) 0.1 mg Q4H PRN PO ELEVATED BLOOD PRESSURE Last administered on 08/18/18 11:18; Admin Dose 0.1 MG; Start 08/16/18 at 08:30 Isosorbide Mononitrate (Imdur) 60 mg DAILY PO Last administered on 08/18/18 08:34; Admin Dose 60 MG; Start 08/16/18 at 11:00 Vancomycin HCl (Vanco Iv Per Pharmacy) VANCOMYCIN PER PHARMACY PER PROTOCOL XX ; Start 08/16/18 at 11:30 Piperacillin Sod/ Tazobactam Sod 50 ml @ 200 mls/hr Q8 IVPB Last administered on 08/18/18 05:01; Admin Dose 200 MLS/HR; Start 08/16/18 at 14:00 Heparin Sodium (Porcine) (Heparin (1000 Units/ml)) 4,000 unit AFTER DIALYSIS CATHETER Last administered on 08/17/18 22:02; Admin Dose 4,000 UNIT; Start 08/16/18 at 12:30 Albumin Human 100 ml @ 100 mls/hr WITH DIALYSIS PRN IV SBP <90 DURING DIALYSIS; Start 08/16/18 at 12:30 Sodium Chloride (NS) -To prime the dialy... DIRECTED FOR HD PRN IV HD; Start 08/16/18 at 12:30 Nifedipine (Procardia Xl) 60 mg BID PO Last administered on 08/18/18 08:33; Admin Dose 60 MG; Start 08/16/18 at 21:00 Tobramycin Sulfate (Tobrex 0.3% Oph Drop) 1 drop Q6 LEFT EYE Last administered on 08/18/18 11:17; Admin Dose 1 DROP; Start 08/16/18 at 18:00; Stop 08/23/18 at 17:59 Famotidine (Pepcid) 20 mg QHS PO Last administered on 2/27/19at 21:19; Admin Dose 20 MG; Start 08/17/18 at 21:00 Minoxidil (Loniten) 5 mg BID PO Last administered on 08/18/18at 08:34; Admin Dose 5 MG; Start 08/17/18 at 21:00 Acetaminophen (Tylenol Tab) 650 mg Q6H PRN PO MILD PAIN(1-3)OR ELEVATED TEMP Last administered on 08/18/18at 10:26; Admin Dose 650 MG; Start 08/18/18 at 10:30 Diagnostic Test (Pha) (Accu-Chek) 1 ea 02 XX ; Start 08/19/18 at 02:00 Insulin Aspart (Novolog Insulin Pen) NOVOLOG *MILD* ALGORITHM WITH MEALS BEDTIME SC Last administered on 08/18/18at 11:26; Admin Dose 2 UNIT; Start 08/18/18 at 12:00 Insulin Aspart (Novolog Insulin Pen) NOVOLOG *MILD* ALGORI... Q4 SC ; Start 08/18/18 at 13:00 Miscellaneous Information 1 ea NOTE XX ; Start 08/18/18 at 10:30 Glucose (Glutose) 15 gm Q15M PRN PO DECREASED GLUCOSE; Start 08/18/18 at 10:30 Glucose (Glutose) 22.5 gm Q15M PRN PO DECREASED GLUCOSE; Start 08/18/18 at 10:30 Dextrose (D50w Syringe) 25 ml Q15M PRN IV DECREASED GLUCOSE; Start 08/18/18 at 10:30 Dextrose (D50w Syringe) 50 ml Q15M PRN IV DECREASED GLUCOSE; Start 08/18/18 at 10:30 Glucagon (Glucagen) 1 mg Q15M PRN IM DECREASED GLUCOSE; Start 08/18/18 at 10:30 Glucose (Glutose) 15 gm Q15M PRN BUCCAL DECREASED GLUCOSE; Start 08/18/18 at 10:30 Vancomycin HCl 250 ml @ 125 mls/hr ONCE IVPB ; Start 08/18/18 at 15:00; Stop 08/18/18 at 21:00 Assessment/Plan Hospital Course (Demo Recall) IMPRESSION Right lower lobe infiltrate in a patient with multiple medical problems. Right lower lobe mass infectious versus malignant. End-stage renal failure on hemodialysis RECOMMENDATIONS: 1. Treat infiltrate as community-acquired pneumonia. 2. Await coccidiomycosis and TB workup 3. Status post CT-guided biopsy await pathology NORMA RASMUSSEN MD, [facility] Aug 18, 2018 12:13
[2018-08-18] MEDS ORDERED: VANCOMYCIN 1 GM 250 ML IVPB SCH (15:00)
[2018-08-18] MEDS: FAMOTIDINE 20 MG TAB PO SCH (20:51)
--- NOTE | 2018-08-18 21:39 | CONS ---
Assessment/Plan Assessment/Plan Hospital Course (Demo Recall) assessment - organizing pneumonia based on Bx on 08/17/2018. nodular density of RLL on CXR 08/15/2018, multiple nodular densities within RLL, a nodule in LLL on CT 08/16/2018. s/p CT guided Bx on 08/17/2018, no e/o malignancy - URI, possible sinusitis, otitis. CT sinus on 08/16/2018 showed paranasal sinus mucosal disease - L retro-orbital pain and L corneal opacity (plus eye discharge according to Pt's RN's note), possible keratitis, improved - b/l blindness - DM - CAD - h/o PR - h/o CABG - ESRD on HD recommendations - pending results: quantiferon TB old, coccidioides serology, tissue (fungal and AFB cultures), HIV test, AFB smear and culture x3 - continue pip/tazo (08/15/2018-) plan for 5-7 days; d/c IV vancomycin - continue tobramycin eye drop (06/15/2019-) - place on Pt on airborne precautions until AFB is ruled out x3. I instructed Pt's RN to call the lab to confirm if 3 samples have been properly collected and processed management d/w Pt, his RN Sue Consultation Date/Type/Reason Admit Date/Time Aug 16, 2018 at 00:15 Initial Consult Date 08/17/18 Type of Consult ID Requesting Provider: HARMONY PETERSON MD Date/Time of Note DATE: 08/18/18 TIME: 21:33 24 HR Interval Summary Constitutional: improved Detailed Summary Eyes: no complaints ENT: pain (less ear-ache. He kept saying "it is all right"); No congestion, No sore throat Respiratory: cough, sputum; No pain, No pleuritic pain, No shortness of breath, No wheezing Cardiovascular: no complaints Gastrointestinal: no complaints Genitourinary: other (Pt's on HD) Musculoskeletal: No restricted range of motion Skin: no complaints Neurologic: no complaints Exam/Review of Systems Exam Vitals Vital Signs Date Temp Pulse Resp B/P (MAP) Pulse Ox O2 O2 Flow FiO2 Time Delivery Rate 08/18/18 63 20:10 08/18/18 97.9 18 194/81 96 19:41 (118) 08/18/18 Room Air 15:34 08/15/18 21 23:15 Intake and Output 08/17/18 08/17/18 08/18/18 1515:00 23:00 07:00 IntakeIntake Total 700 ml 550 ml OutputOutput Total 2000 ml BalanceBalance -1300 ml 550 ml Constitutional: alert, oriented, well developed Psych: no complaints, nl mood/affect Head: normocephalic, atraumatic Eyes: other (b/l blind, cataract vs. keratitis of L eye) ENMT: nl external ears & nose, nl nasal mucosa & septum, mucosa pink and moist, other (ears and sinuse are non-TTP) Neck: supple, non-tender, other (not swollen) Respiratory: congested cough, crackles/rales Cardiovascular: regular rate and rhythm, nl pulses Gastrointestinal: soft, non-tender; No tender Musculoskeletal: nl extremities to inspection Extremities: No edema 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: nl mental status, nl speech Skin: nl turgor; No rash or lesions Results Result Diagram: 08/18/18 1148 08/18/18 1148 Results 24hrs Laboratory Tests Test 08/18/18 05:05 08/18/18 11:21 08/18/18 11:48 08/18/18 17:26 Random Vancomycin 10.5 Level HIV (1&2) Antibody NEGATIVE Bedside Glucose 184 166 White Blood Count 4.0 #L Red Blood Count 3.87 L Hemoglobin 11.4 L Hematocrit 36.1 L Mean Corpuscular 93.3 Volume Mean Corpuscular 29.5 Hemoglobin Mean Corpuscular 31.6 L Hemoglobin Concent Red Cell 13.5 Distribution Width Platelet Count 133 #L Mean Platelet Volume 10.2 Immature 0.200 Granulocytes % Neutrophils % 59.2 Lymphocytes % 14.7 L Monocytes % 9.7 Eosinophils % 16.0 H Basophils % 0.2 Nucleated Red Blood 0.0 Cells % Immature 0.010 Granulocytes # Neutrophils # 2.4 Lymphocytes # 0.6 L Monocytes # 0.4 Eosinophils # 0.6 H Basophils # 0.0 Nucleated Red Blood 0.0 Cells # Sodium Level 139 Potassium Level 4.8 Chloride Level 101 Carbon Dioxide Level 26 Anion Gap 12 Blood Urea Nitrogen 36 #H Creatinine 7.05 H Est Glomerular 8 L Filtrat Rate mL/min Glucose Level 176 Hemoglobin A1c 5.6 Calcium Level 8.4 Test 08/18/18 21:27 Bedside Glucose 115 Medications Medication Current Medications Dextrose (D50w Syringe) ONCE PRN IV DECREASED GLUCOSE Last administered on 08/15/18 23:48; Admin Dose 50 ML; Start 08/15/18 at 23:00 Zolpidem Tartrate (Ambien) 5 mg HS PRN PO INSOMNIA; Start 08/16/18 at 02:30 Atropine Sulfate (Atropine 1% Oph) 1 drop BID BOTH EYES Last administered on 08/18/18 20:53; Admin Dose 1 DROP; Start 08/16/18 at 09:00 Losartan Potassium (Cozaar) 50 mg DAILY PO Last administered on 08/18/18 08:34; Admin Dose 50 MG; Start 08/16/18 at 09:00 Carvedilol (Coreg) 6.25 mg BID PO Last administered on 08/18/18 20:51; Admin Dose 6.25 MG; Start 08/16/18 at 09:00 Clonidine (Catapres) 0.1 mg Q4H PRN PO ELEVATED BLOOD PRESSURE Last administe red on 08/18/18 11:18; Admin Dose 0.1 MG; Start 08/16/18 at 08:30 Isosorbide Mononitrate (Imdur) 60 mg DAILY PO Last administered on 08/18/18 08:34; Admin Dose 60 MG; Start 08/16/18 at 11:00 Vancomycin HCl (Vanco Iv Per Pharmacy) VANCOMYCIN PER PHARMACY PER PROTOCOL XX ; Start 08/16/18 at 11:30 Piperacillin Sod/ Tazobactam Sod 50 ml @ 200 mls/hr Q8 IVPB Last administered on 08/18/18 21:22; Admin Dose 200 MLS/HR; Start 08/16/18 at 14:00 Heparin Sodium (Porcine) (Heparin (1000 Units/ml)) 4,000 unit AFTER DIALYSIS CATHETER Last administered on 08/17/18 22:02; Admin Dose 4,000 UNIT; Start 08/16/18 at 12:30 Albumin Human 100 ml @ 100 mls/hr WITH DIALYSIS PRN IV SBP <90 DURING DIALYSIS; Start 08/16/18 at 12:30 Sodium Chloride (NS) -To prime the dialy... DIRECTED FOR HD PRN IV HD; Start 08/16/18 at 12:30 Nifedipine (Procardia Xl) 60 mg BID PO Last administered on 08/18/18at 20:52; Admin Dose 60 MG; Start 08/16/18 at 21:00 Tobramycin Sulfate (Tobrex 0.3% Oph Drop) 1 drop Q6 LEFT EYE Last administered on 08/18/18at 17:30; Admin Dose 1 DROP; Start 08/16/18 at 18:00; Stop 08/23/18 at 17:59 Famotidine (Pepcid) 20 mg QHS PO Last administered on 08/18/18at 20:51; Admin Dose 20 MG; Start 08/17/18 at 21:00 Minoxidil (Loniten) 5 mg BID PO Last administered on 08/18/18at 20:50; Admin Dose 5 MG; Start 08/17/18 at 21:00 Acetaminophen (Tylenol Tab) 650 mg Q6H PRN PO MILD PAIN(1-3)OR ELEVATED TEMP Last administered on 08/18/18at 10:26; Admin Dose 650 MG; Start 08/18/18 at 10:30 Diagnostic Test (Pha) (Accu-Chek) 1 ea 02 XX ; Start 08/19/18 at 02:00 Insulin Aspart (Novolog Insulin Pen) NOVOLOG *MILD* ALGORITHM WITH MEALS BEDTIME SC Last administered on 08/18/18at 17:32; Admin Dose 1 UNIT; Start 08/18/18 at 12:00 Insulin Aspart (Novolog Insulin Pen) NOVOLOG *MILD* ALGORI... Q4 SC ; Start 08/18/18 at 13:00 Miscellaneous Information 1 ea NOTE XX ; Start 08/18/18 at 10:30 Glucose (Glutose) 15 gm Q15M PRN PO DECREASED GLUCOSE; Start 08/18/18 at 10:30 Glucose (Glutose) 22.5 gm Q15M PRN PO DECREASED GLUCOSE; Start 08/18/18 at 10:30 Dextrose (D50w Syringe) 25 ml Q15M PRN IV DECREASED GLUCOSE; Start 08/18/18 at 10:30 Dextrose (D50w Syringe) 50 ml Q15M PRN IV DECREASED GLUCOSE; Start 08/18/18 at 10:30 Glucagon (Glucagen) 1 mg Q15M PRN IM DECREASED GLUCOSE; Start 08/18/18 at 10:30 Glucose (Glutose) 15 gm Q15M PRN BUCCAL DECREASED GLUCOSE; Start 08/18/18 at 10:30 ANTONY RAND M.D. Aug 18, 2018 21:39
[2018-08-19] VITALS (26 sets, daily range): BP systolic 137–188; BP diastolic 59–89; PULSE 55–65; RESP 16–20
[2018-08-19] MEDS: TOBRAMYCIN 0.3% 5 ML OPH LEFT EYE SCH ×4 (00:09→18:09)
[2018-08-19] MEDS: INSULIN ASPART [NOVOLOG] 3 ML PEN SC SCH ×6 (01:00→21:00)
[2018-08-19] MEDS: ACCU-CHEK XX SCH (02:00)
[2018-08-19] MEDS: PIPER-TAZO 2.25 GM (PMX) 50 ML IVPB SCH ×3 (05:35→21:37)
[2018-08-19] MEDS: ATROPINE 1% 5 ML OPH BOTH EYES SCH ×2 (08:12→21:38)
[2018-08-19] MEDS: MINOXIDIL 2.5 MG TAB PO SCH ×2 (10:21→20:38)
[2018-08-19] MEDS: NIFEdipine (XL) 60 MG TAB PO SCH ×2 (10:21→20:38)
[2018-08-19] MEDS: LOSARTAN 50 MG TAB PO SCH (10:21)
[2018-08-19] MEDS: ISOSORBIDE MONONITRATE(SR)60 MG TAB PO SCH (10:21)
--- NOTE | 2018-08-19 10:56 | CONS ---
Assessment/Plan Assessment/Plan Hospital Course (Demo Recall) #Multiple lung mass in RLL -CT guided bx reveals evidence of pneumonia #Pneumonia -continue IV antibiotics per ID -pt currently underlying workup for Cocci and TB #ESRD -continue HD per renal #HTN -continue BP meds Thank you for the opportunity to participate in this patients care A total of 40 minutes of face to face time was spent speaking with the patient, of which greater than 50% was spent in counseling and coordination of care and the detailed question and answer session. Consultation Date/Type/Reason Admit Date/Time Aug 16, 2018 at 00:15 Initial Consult Date 08/17/18 Type of Consult oncology Reason for Consultation lung mass Requesting Provider: HARMONY PETERSON MD Date/Time of Note DATE: 08/19/18 TIME: 10:55 24 HR Interval Summary Free Text/Dictation lung mass bx consistent with pneumonia Exam/Review of Systems Exam Vitals Vital Signs Date Temp Pulse Resp B/P (MAP) Pulse Ox O2 O2 Flow FiO2 Time Delivery Rate 08/19/18 58 08:15 08/19/18 97.6 18 137/59 96 Room Air 07:11 (85) 08/15/18 21 23:15 Intake and Output 08/18/18 08/18/18 08/19/18 1414:59 22:59 06:59 IntakeIntake Total 720 ml BalanceBalance 720 ml Constitutional: alert, oriented, frail Psych: anxiety, depression Head: normocephalic Eyes: other (cataracts) ENMT: nl external ears & nose Neck: supple Respiratory: diminished breath sounds Cardiovascular: regular rate and rhythm Gastrointestinal: soft Musculoskeletal: nl extremities to inspection Results Result Diagram: 08/18/18 1148 08/18/18 1148 Results 24hrs Laboratory Tests Test 08/18/18 11:21 08/18/18 11:48 08/18/18 17:26 08/18/18 21:27 Bedside Glucose 184 166 115 White Blood Count 4.0 #L Red Blood Count 3.87 L Hemoglobin 11.4 L Hematocrit 36.1 L Mean Corpuscular 93.3 Volume Mean Corpuscular 29.5 Hemoglobin Mean Corpuscular 31.6 L Hemoglobin Concent Red Cell 13.5 Distribution Width Platelet Count 133 #L Mean Platelet Volume 10.2 Immature 0.200 Granulocytes % Neutrophils % 59.2 Lymphocytes % 14.7 L Monocytes % 9.7 Eosinophils % 16.0 H Basophils % 0.2 Nucleated Red Blood 0.0 Cells % Immature 0.010 Granulocytes # Neutrophils # 2.4 Lymphocytes # 0.6 L Monocytes # 0.4 Eosinophils # 0.6 H Basophils # 0.0 Nucleated Red Blood 0.0 Cells # Sodium Level 139 Potassium Level 4.8 Chloride Level 101 Carbon Dioxide Level 26 Anion Gap 12 Blood Urea Nitrogen 36 #H Creatinine 7.05 H Est Glomerular 8 L Filtrat Rate mL/min Glucose Level 176 Hemoglobin A1c 5.6 Calcium Level 8.4 Test 08/19/18 08:10 Bedside Glucose 104 Medications Medication Current Medications Dextrose (D50w Syringe) ONCE PRN IV DECREASED GLUCOSE Last administered on 08/15/18 23:48; Admin Dose 50 ML; Start 08/15/18 at 23:00 Zolpidem Tartrate (Ambien) 5 mg HS PRN PO INSOMNIA; Start 08/16/18 at 02:30 Atropine Sulfate (Atropine 1% Oph) 1 drop BID BOTH EYES Last administered on 08/19/18 08:12; Admin Dose 1 DROP; Start 08/16/18 at 09:00 Losartan Potassium (Cozaar) 50 mg DAILY PO Last administered on 08/19/18 10:21; Admin Dose 50 MG; Start 08/16/18 at 09:00 Carvedilol (Coreg) 6.25 mg BID PO Last administered on 08/19/18 10:22; Admin Dose 6.25 MG; Start 08/16/18 at 09:00 Clonidine (Catapres) 0.1 mg Q4H PRN PO ELEVATED BLOOD PRESSURE Last administered on 08/19/18 05:36; Admin Dose 0.1 MG; Start 08/16/18 at 08:30 Isosorbide Mononitrate (Imdur) 60 mg DAILY PO Last administered on 08/19/18 10:21; Admin Dose 60 MG; Start 08/16/18 at 11:00 Piperacillin Sod/ Tazobactam Sod 50 ml @ 200 mls/hr Q8 IVPB Last administered on 08/19/18 05:35; Admin Dose 200 MLS/HR; Start 08/16/18 at 14:00 Heparin Sodium (Porcine) (Heparin (1000 Units/ml)) 4,000 unit AFTER DIALYSIS CATHETER Last administered on 2/27/19at 22:02; Admin Dose 4,000 UNIT; Start 08/16/18 at 12:30 Albumin Human 100 ml @ 100 mls/hr WITH DIALYSIS PRN IV SBP <90 DURING DIALYSIS; Start 08/16/18 at 12:30 Sodium Chloride (NS) -To prime the dialy... DIRECTED FOR HD PRN IV HD; Start 08/16/18 at 12:30 Nifedipine (Procardia Xl) 60 mg BID PO Last administered on 08/19/18at 10:21; Admin Dose 60 MG; Start 08/16/18 at 21:00 Tobramycin Sulfate (Tobrex 0.3% Oph Drop) 1 drop Q6 LEFT EYE Last administered on 08/19/18at 05:38; Admin Dose 1 DROP; Start 08/16/18 at 18:00; Stop 08/23/18 at 17:59 Famotidine (Pepcid) 20 mg QHS PO Last administered on 08/18/18at 20:51; Admin Dose 20 MG; Start 08/17/18 at 21:00 Minoxidil (Loniten) 5 mg BID PO Last administered on 08/19/18at 10:21; Admin Dose 5 MG; Start 08/17/18 at 21:00 Acetaminophen (Tylenol Tab) 650 mg Q6H PRN PO MILD PAIN(1-3)OR ELEVATED TEMP Last administered on 08/18/18at 10:26; Admin Dose 650 MG; Start 08/18/18 at 10:30 Diagnostic Test (Pha) (Accu-Chek) 1 ea 02 XX Last administered on 08/19/18at 02:00; Admin Dose 1 EA; Start 08/19/18 at 02:00 Insulin Aspart (Novolog Insulin Pen) NOVOLOG *MILD* ALGORITHM WITH MEALS BEDTIME SC Last administered on 08/18/18at 17:32; Admin Dose 1 UNIT; Start 08/18/18 at 12:00 Miscellaneous Information 1 ea NOTE XX ; Start 08/18/18 at 10:30 Glucose (Glutose) 15 gm Q15M PRN PO DECREASED GLUCOSE; Start 08/18/18 at 10:30 Glucose (Glutose) 22.5 gm Q15M PRN PO DECREASED GLUCOSE; Start 08/18/18 at 10:30 Dextrose (D50w Syringe) 25 ml Q15M PRN IV DECREASED GLUCOSE; Start 08/18/18 at 10:30 Dextrose (D50w Syringe) 50 ml Q15M PRN IV DECREASED GLUCOSE; Start 08/18/18 at 10:30 Glucagon (Glucagen) 1 mg Q15M PRN IM DECREASED GLUCOSE; Start 08/18/18 at 10:30 Glucose (Glutose) 15 gm Q15M PRN BUCCAL DECREASED GLUCOSE; Start 08/18/18 at 10:30 AMAYA MONDRAGON M.D. Aug 19, 2018 10:56
--- NOTE | 2018-08-19 11:49 | CONS ---
Assessment/Plan Assessment/Plan Assessment/Plan (Daily) 1. acute hyperkalemia - resolved now 2. ESRD on HD MWF 3. accelerateD HTN - improving BP control 4. acute chest pain 5.type II DM with hyperglycemia 6. H/o HTN Plan: Nifedipine 60mg pO BID, s/p HD today-3 L removed, pt regular schedule for HD is MWF IV abx as per ID will follow up Consultation Date/Type/Reason Admit Date/Time Aug 16, 2018 at 00:15 Initial Consult Date 08/16/18 Type of Consult NEPHROLOGY Requesting Provider: HARMONY PETERSON MD Date/Time of Note DATE: 08/19/18 TIME: 11:49 24 HR Interval Summary Free Text/Dictation plan for HD today, on IV abx Exam/Review of Systems Exam Vitals Vital Signs Date Temp Pulse Resp B/P (MAP) Pulse Ox O2 O2 Flow FiO2 Time Delivery Rate 08/19/18 58 08:15 08/19/18 97.6 18 137/59 96 Room Air 07:11 (85) 08/15/18 21 23:15 Intake and Output 08/18/18 08/18/18 08/19/18 1414:59 22:59 06:59 IntakeIntake Total 720 ml BalanceBalance 720 ml Exam Constitutional: alert, awake, no acute distress Respiratory: clear to auscultation, normal air movement, diminished breath sounds Cardiovascular: regular rate and rhythm, nl pulses Gastrointestinal: soft, non-tender Musculoskeletal: muscle tone, swelling Extremities: normal pulses 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: EN[employer] ADDRESS[employer] II-XII intact, nl mental status, nl speech, nl strength Lymph: nl lymph nodes Results Result Diagram: 08/18/18 1148 08/18/18 1148 Results 24hrs Laboratory Tests Test 08/18/18 17:26 08/18/18 21:27 08/19/18 08:10 08/19/18 11:40 Bedside Glucose 166 115 104 188 Medications Medication Current Medications Dextrose (D50w Syringe) ONCE PRN IV DECREASED GLUCOSE Last administered on 08/15/18at 23:48; Admin Dose 50 ML; Start 08/15/18 at 23:00 Zolpidem Tartrate (Ambien) 5 mg HS PRN PO INSOMNIA; Start 08/16/18 at 02:30 Atropine Sulfate (Atropine 1% Oph) 1 drop BID BOTH EYES Last administered on 08/19/18 08:12; Admin Dose 1 DROP; Start 08/16/18 at 09:00 Losartan Potassium (Cozaar) 50 mg DAILY PO Last administered on 08/19/18 10:21; Admin Dose 50 MG; Start 08/16/18 at 09:00 Carvedilol (Coreg) 6.25 mg BID PO Last administered on 08/19/18 10:22; Admin Dose 6.25 MG; Start 08/16/18 at 09:00 Clonidine (Catapres) 0.1 mg Q4H PRN PO ELEVATED BLOOD PRESSURE Last administered on 08/19/18 05:36; Admin Dose 0.1 MG; Start 08/16/18 at 08:30 Isosorbide Mononitrate (Imdur) 60 mg DAILY PO Last administered on 08/19/18 10:21; Admin Dose 60 MG; Start 08/16/18 at 11:00 Piperacillin Sod/ Tazobactam Sod 50 ml @ 200 mls/hr Q8 IVPB Last administered on 08/19/18 05:35; Admin Dose 200 MLS/HR; Start 08/16/18 at 14:00 Heparin Sodium (Porcine) (Heparin (1000 Units/ml)) 4,000 unit AFTER DIALYSIS CATHETER Last administered on 08/17/18 22:02; Admin Dose 4,000 UNIT; Start 08/16/18 at 12:30 Albumin Human 100 ml @ 100 mls/hr WITH DIALYSIS PRN IV SBP <90 DURING DIALYSIS; Start 08/16/18 at 12:30 Sodium Chloride (NS) -To prime the dialy... DIRECTED FOR HD PRN IV HD; Start 08/16/18 at 12:30 Nifedipine (Procardia Xl) 60 mg BID PO Last administered on 08/19/18 10:21; Admin Dose 60 MG; Start 08/16/18 at 21:00 Tobramycin Sulfate (Tobrex 0.3% Oph Drop) 1 drop Q6 LEFT EYE Last administered on 08/19/18 11:42; Admin Dose 1 DROP; Start 08/16/18 at 18:00; Stop 08/23/18 at 17:59 Famotidine (Pepcid) 20 mg QHS PO Last administered on 08/18/18 20:51; Admin Dose 20 MG; Start 08/17/18 at 21:00 Minoxidil (Loniten) 5 mg BID PO Last administered on 08/19/18at 10:21; Admin Dose 5 MG; Start 08/17/18 at 21:00 Acetaminophen (Tylenol Tab) 650 mg Q6H PRN PO MILD PAIN(1-3)OR ELEVATED TEMP Last administered on 08/18/18at 10:26; Admin Dose 650 MG; Start 08/18/18 at 10:30 Diagnostic Test (Pha) (Accu-Chek) 1 ea 02 XX Last administered on 08/19/18at 02:00; Admin Dose 1 EA; Start 08/19/18 at 02:00 Insulin Aspart (Novolog Insulin Pen) NOVOLOG *MILD* ALGORITHM WITH MEALS BEDTIME SC Last administered on 08/19/18at 11:45; Admin Dose 2 UNIT; Start 08/18/18 at 12:00 Miscellaneous Information 1 ea NOTE XX ; Start 08/18/18 at 10:30 Glucose (Glutose) 15 gm Q15M PRN PO DECREASED GLUCOSE; Start 08/18/18 at 10:30 Glucose (Glutose) 22.5 gm Q15M PRN PO DECREASED GLUCOSE; Start 08/18/18 at 10:30 Dextrose (D50w Syringe) 25 ml Q15M PRN IV DECREASED GLUCOSE; Start 08/18/18 at 10:30 Dextrose (D50w Syringe) 50 ml Q15M PRN IV DECREASED GLUCOSE; Start 08/18/18 at 10:30 Glucagon (Glucagen) 1 mg Q15M PRN IM DECREASED GLUCOSE; Start 08/18/18 at 10:30 Glucose (Glutose) 15 gm Q15M PRN BUCCAL DECREASED GLUCOSE; Start 08/18/18 at 10:30 VALERIA RODRÍGUEZ MD Aug 19, 2018 11:49
--- NOTE | 2018-08-19 15:07 | CONS ---
Consult Date/Type/Reason Admit Date/Time Aug 16, 2018 at 00:15 Initial Consult Date 08/17/18 Type of Consult Pulmonary Requesting Provider: HARMONY PETERSON MD Date/Time of Note DATE: 08/19/18 TIME: 15:05 Subjective Comfortable, no distress. Objective Vital Signs Date Temp Pulse Resp B/P (MAP) Pulse Ox O2 O2 Flow FiO2 Time Delivery Rate 08/19/18 58 12:08 08/19/18 97.7 20 174/71 94 Room Air 11:55 (105) 08/15/18 21 23:15 Intake and Output 08/18/18 08/18/18 08/19/18 1515:00 23:00 07:00 IntakeIntake Total 720 ml BalanceBalance 720 ml Exam PHYSICAL EXAMINATION: GENERAL: Well-nourished, well-developed gentleman, appears comfortable at rest, in no acute distress. VITAL SIGNS: NECK: Supple. No JVD or lymphadenopathy. CARDIAC: S1, S2. No added sounds or murmurs. CHEST: Diminished air entry bilaterally. ABDOMEN: Soft, nontender. No guarding or rebound. EXTREMITIES: No cyanosis, clubbing. A 1+ edema. NEUROLOGIC: Generalized weakness. Vent Setting Fraction of Inspired Oxygen pe: 21 Results/Medications Result Diagram: 08/18/18 1148 08/18/18 1148 Results 24 hrs Laboratory Tests Test 08/18/18 17:26 08/18/18 21:27 08/19/18 08:10 08/19/18 11:40 Bedside Glucose 166 115 104 188 Medications Current Medications Dextrose (D50w Syringe) ONCE PRN IV DECREASED GLUCOSE Last administered on 08/15/18at 23:48; Admin Dose 50 ML; Start 08/15/18 at 23:00 Zolpidem Tartrate (Ambien) 5 mg HS PRN PO INSOMNIA; Start 08/16/18 at 02:30 Atropine Sulfate (Atropine 1% Oph) 1 drop BID BOTH EYES Last administered on 08/19/18at 08:12; Admin Dose 1 DROP; Start 08/16/18 at 09:00 Losartan Potassium (Cozaar) 50 mg DAILY PO Last administered on 08/19/18at 10:21; Admin Dose 50 MG; Start 08/16/18 at 09:00 Carvedilol (Coreg) 6.25 mg BID PO Last administered on 08/19/18 10:22; Admin Dose 6.25 MG; Start 08/16/18 at 09:00 Clonidine (Catapres) 0.1 mg Q4H PRN PO ELEVATED BLOOD PRESSURE Last administered on 08/19/18 05:36; Admin Dose 0.1 MG; Start 08/16/18 at 08:30 Isosorbide Mononitrate (Imdur) 60 mg DAILY PO Last administered on 08/19/18 10:21; Admin Dose 60 MG; Start 08/16/18 at 11:00 Piperacillin Sod/ Tazobactam Sod 50 ml @ 200 mls/hr Q8 IVPB Last administered on 08/19/18 05:35; Admin Dose 200 MLS/HR; Start 08/16/18 at 14:00 Heparin Sodium (Porcine) (Heparin (1000 Units/ml)) 4,000 unit AFTER DIALYSIS CATHETER Last administered on 08/17/18 22:02; Admin Dose 4,000 UNIT; Start 08/16/18 at 12:30 Albumin Human 100 ml @ 100 mls/hr WITH DIALYSIS PRN IV SBP <90 DURING DIALYSIS; Start 08/16/18 at 12:30 Sodium Chloride (NS) -To prime the dialy... DIRECTED FOR HD PRN IV HD; Start 08/16/18 at 12:30 Nifedipine (Procardia Xl) 60 mg BID PO Last administered on 08/19/18 10:21; Admin Dose 60 MG; Start 08/16/18 at 21:00 Tobramycin Sulfate (Tobrex 0.3% Oph Drop) 1 drop Q6 LEFT EYE Last administered on 08/19/18 11:42; Admin Dose 1 DROP; Start 08/16/18 at 18:00; Stop 08/23/18 at 17:59 Famotidine (Pepcid) 20 mg QHS PO Last administered on 08/18/18 20:51; Admin Dose 20 MG; Start 08/17/18 at 21:00 Minoxidil (Loniten) 5 mg BID PO Last administered on 08/19/18 10:21; Admin Dose 5 MG; Start 08/17/18 at 21:00 Acetaminophen (Tylenol Tab) 650 mg Q6H PRN PO MILD PAIN(1-3)OR ELEVATED TEMP Last administered on 2/28/19at 10:26; Admin Dose 650 MG; Start 08/18/18 at 10:30 Diagnostic Test (Pha) (Accu-Chek) 1 ea 02 XX Last administered on 08/19/18at 02:00; Admin Dose 1 EA; Start 08/19/18 at 02:00 Insulin Aspart (Novolog Insulin Pen) NOVOLOG *MILD* ALGORITHM WITH MEALS BEDTIME SC Last administered on 08/19/18at 11:45; Admin Dose 2 UNIT; Start 08/18/18 at 12:00 Miscellaneous Information 1 ea NOTE XX ; Start 08/18/18 at 10:30 Glucose (Glutose) 15 gm Q15M PRN PO DECREASED GLUCOSE; Start 08/18/18 at 10:30 Glucose (Glutose) 22.5 gm Q15M PRN PO DECREASED GLUCOSE; Start 08/18/18 at 10:30 Dextrose (D50w Syringe) 25 ml Q15M PRN IV DECREASED GLUCOSE; Start 08/18/18 at 10:30 Dextrose (D50w Syringe) 50 ml Q15M PRN IV DECREASED GLUCOSE; Start 08/18/18 at 10:30 Glucagon (Glucagen) 1 mg Q15M PRN IM DECREASED GLUCOSE; Start 08/18/18 at 10:30 Glucose (Glutose) 15 gm Q15M PRN BUCCAL DECREASED GLUCOSE; Start 08/18/18 at 10:30 Assessment/Plan Hospital Course (Demo Recall) IMPRESSION Right lower lobe infiltrate in a patient with multiple medical problems. Right lower lobe mass infectious versus malignant. End-stage renal failure on hemodialysis RECOMMENDATIONS: 1. Treat infiltrate as community-acquired pneumonia. 2. Await coccidiomycosis and TB workup 3. Biopsy shows organizing pna. khadijah planning ok from pulm standpoint. NORMA RASMUSSEN MD, [facility] Aug 19, 2018 15:07
--- NOTE | 2018-08-19 15:08 | CONS ---
Consult Date/Type/Reason Admit Date/Time Aug 16, 2018 at 00:15 Initial Consult Date 08/16/18 Type of Consultation: cv Requesting Provider: HARMONY PETERSON MD Date/Time of Note DATE: 08/19/18 TIME: 15:06 Subjective Cardiology follow-up progress note Subjective: Discussed with the staff telemetry was reviewed patient with normal sinus rhythm/sinus bradycardia Patient with no chest pain or pressure. No bleeding is reported. His breathing is improved and has less cough today Patient is currently on hemodialysis Objective: General: no acute distress HEENT: NC/AT. . NECK: NO JVD. no stridor. CV: RRR. systolic murmur; no gallop or rubs. PULM: no wheezing or rhonchi. GI: SOFT, NT, ND, no rebound or guarding Extremity: trace B/L LE edema. no clubbing. neuro: awake and alert, OX3. Psych: calm and pleasant rectal: deferred : normal EKG was personally within normal sinus rhythm nonspecific ST abnormalities Chest x-ray shows: Mild cardiomegaly. Mild pulmonary vascular congestion. Calcified aorta consistent with atherosclerotic disease. 3.8 cm right lower lobe nodular opacity. Follow-up CT chest is recommended. Echocardiogram done 08/16/2018 shows: Normal left ventricular systolic function. Normal left ventricular cavity size. Ejection fraction is visually estimated at 60 %. Tissue Doppler/Mitral Doppler indices are consistent with impaired relaxation (Stage I diastolic dysfunction). Mild mitral leaflet calcification. Mild mitral annular calcification. Mild mitral valve regurgitation. No significant aortic stenosis or insufficiency. Aortic cusps appear mildly calcified. Normal appearance of the tricuspid valve. Estimated peak PA systolic pressure 36 mmHg. There is mild tricuspid regurgitation. CT of the chest on 08/13/2018 shows: Multiple nodular densities are seen within the right lower lobe and this corresponds to the abnormality on prior chest radiograph. There is also a nodule in the left lower lobe. These could represent infectious nodular opacities or could represent neoplastic lesions. This can be correlated with clinical findings and biopsy may be considered as clinically warranted. Follow-up CT is recommended after 3 months. Renal atrophy is present with mild cardiomegaly and faint pulmonary edema. Atherosclerotic disease is present. There is a fecal filled colon with diverticulosis. Objective Vitals Vital Signs Date Temp Pulse Resp B/P (MAP) Pulse Ox O2 O2 Flow FiO2 Time Delivery Rate 08/19/18 58 12:08 08/19/18 97.7 20 174/71 94 Room Air 11:55 (105) 08/15/18 21 23:15 Intake and Output 08/18/18 08/18/18 08/19/18 1414:59 22:59 06:59 IntakeIntake Total 720 ml BalanceBalance 720 ml Results/Medications Result Diagram: 08/18/18 1148 08/18/18 1148 Results 24 hrs Laboratory Tests Test 08/18/18 17:26 08/18/18 21:27 08/19/18 08:10 08/19/18 11:40 Bedside Glucose 166 115 104 188 Home Meds Reported Medications Nifedipine* (Nifedipine ER*) 90 Mg Tablet.er, 90 MG PO DAILY, TAB 08/15/18 Carvedilol* (Carvedilol*) 6.25 Mg Tablet, 6.25 MG PO BID, #60 TAB 08/15/18 Isosorbide Mononitrate* (Isosorbide Mononitrate*) 60 Mg Tab.er.24h, 60 MG PO DAILY, TAB 08/15/18 Losartan Potassium* (Losartan Potassium*) 50 Mg Tablet, 50 MG PO DAILY, TAB 08/15/18 Minoxidil* (Lonitin*) 2.5 Mg Tab, 2.5 MG PO BID, TAB 08/15/18 Famotidine* (Famotidine*) 20 Mg Tablet, 20 MG PO BID, #60 TAB 08/15/18 Atropine Sulfate/0.9 %Sod Chlr (Atropine 0.01%-Ns Eye Drops) 10 Ml Drops, 15 ML OP BID, BOTTLE 08/15/18 Tamsulosin Hcl* (Tamsulosin Hcl*) 0.4 Mg Cap.er.24h, 0.4 MG PO DAILY, CAP 08/15/18 Clonidine Hcl* (Clonidine Hcl*) 0.1 Mg Tab, 0.2 MG PO BID PRN for ELEVATED BLOOD PRESSURE, TAB 08/15/18 Sevelamer Carbonate* (Renvela*) 800 Mg Tablet, 0.8 GM PO WITH MEALS, TAB 08/15/18 Medications Current Medications Dextrose (D50w Syringe) ONCE PRN IV DECREASED GLUCOSE Last administered on 08/15/18at 23:48; Admin Dose 50 ML; Start 08/15/18 at 23:00 Zolpidem Tartrate (Ambien) 5 mg HS PRN PO INSOMNIA; Start 08/16/18 at 02:30 Atropine Sulfate (Atropine 1% Oph) 1 drop BID BOTH EYES Last administered on 08/19/18 08:12; Admin Dose 1 DROP; Start 08/16/18 at 09:00 Losartan Potassium (Cozaar) 50 mg DAILY PO Last administered on 08/19/18 10:21; Admin Dose 50 MG; Start 08/16/18 at 09:00 Carvedilol (Coreg) 6.25 mg BID PO Last administered on 08/19/18 10:22; Admin Dose 6.25 MG; Start 08/16/18 at 09:00 Clonidine (Catapres) 0.1 mg Q4H PRN PO ELEVATED BLOOD PRESSURE Last administered on 08/19/18 05:36; Admin Dose 0.1 MG; Start 08/16/18 at 08:30 Isosorbide Mononitrate (Imdur) 60 mg DAILY PO Last administered on 08/19/18 10:21; Admin Dose 60 MG; Start 08/16/18 at 11:00 Piperacillin Sod/ Tazobactam Sod 50 ml @ 200 mls/hr Q8 IVPB Last administered on 08/19/18 05:35; Admin Dose 200 MLS/HR; Start 08/16/18 at 14:00 Heparin Sodium (Porcine) (Heparin (1000 Units/ml)) 4,000 unit AFTER DIALYSIS CATHETER Last administered on 08/17/18 22:02; Admin Dose 4,000 UNIT; Start 08/16/18 at 12:30 Albumin Human 100 ml @ 100 mls/hr WITH DIALYSIS PRN IV SBP <90 DURING D IALYSIS; Start 08/16/18 at 12:30 Sodium Chloride (NS) -To prime the dialy... DIRECTED FOR HD PRN IV HD; Start 08/16/18 at 12:30 Nifedipine (Procardia Xl) 60 mg BID PO Last administered on 08/19/18 10:21; Admin Dose 60 MG; Start 08/16/18 at 21:00 Tobramycin Sulfate (Tobrex 0.3% Oph Drop) 1 drop Q6 LEFT EYE Last administered on 08/19/18 11:42; Admin Dose 1 DROP; Start 08/16/18 at 18:00; Stop 08/23/18 at 17:59 Famotidine (Pepcid) 20 mg QHS PO Last administered on 08/18/18at 20:51; Admin Dose 20 MG; Start 08/17/18 at 21:00 Minoxidil (Loniten) 5 mg BID PO Last administered on 08/19/18at 10:21; Admin Dose 5 MG; Start 08/17/18 at 21:00 Acetaminophen (Tylenol Tab) 650 mg Q6H PRN PO MILD PAIN(1-3)OR ELEVATED TEMP Last administered on 08/18/18at 10:26; Admin Dose 650 MG; Start 08/18/18 at 10:30 Diagnostic Test (Pha) (Accu-Chek) 1 ea 02 XX Last administered on 08/19/18at 02:00; Admin Dose 1 EA; Start 08/19/18 at 02:00 Insulin Aspart (Novolog Insulin Pen) NOVOLOG *MILD* ALGORITHM WITH MEALS BEDT BREANNA SC Last administered on 08/19/18at 11:45; Admin Dose 2 UNIT; Start 08/18/18 at 12:00 Miscellaneous Information 1 ea NOTE XX ; Start 08/18/18 at 10:30 Glucose (Glutose) 15 gm Q15M PRN PO DECREASED GLUCOSE; Start 08/18/18 at 10:30 Glucose (Glutose) 22.5 gm Q15M PRN PO DECREASED GLUCOSE; Start 08/18/18 at 10:30 Dextrose (D50w Syringe) 25 ml Q15M PRN IV DECREASED GLUCOSE; Start 08/18/18 at 10:30 Dextrose (D50w Syringe) 50 ml Q15M PRN IV DECREASED GLUCOSE; Start 08/18/18 at 10:30 Glucagon (Glucagen) 1 mg Q15M PRN IM DECREASED GLUCOSE; Start 08/18/18 at 10:30 Glucose (Glutose) 15 gm Q15M PRN BUCCAL DECREASED GLUCOSE; Start 08/18/18 at 10:30 Assessment/Plan Hospital Course (Demo Recall) 1. Hypertensive urgency/resistant hypertension 2. History of coronary artery disease 3. 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 Renal failure on dialysis 5. Pulmonary vascular congestion/fluid overload 6. Diabetes 7. Dyslipidemia 8. Hyperkalemia 9. Pulmonary nodule Recommendations: Continue with the Coreg Procardia. Continue with minoxidil now at 5 bid Continue with losartan as long as okay with renal and hyperkalemia Clonidine will be continued as a as needed as well. Lipid panel reviewed and showed LDL at goal of less than 70 Hemodialysis as per renal follow up with pulmonary recommendations Thank you for his referral. We will continue to follow along with you NAHUN RUSSELL MD [facility] NAHUN RUSSELL MD Aug 19, 2018 15:08
--- NOTE | 2018-08-19 15:20 | PN ---
Date/Time of Note Date/Time of Note DATE: 08/19/18 TIME: 15:20 Assessment/Plan VTE Prophylaxis Risk score (from Nsg)>0 risk: 4 SCD applied (from Nsg): Yes Lines/Catheters IV Catheter Type (from Nrsg): Peripheral IV Urinary Cath still in place: No Assessment/Plan Assessment/Plan 1. Pneumonia. Continue cefepime. The patient clinically has been improving. 2. Status post nausea, vomiting, and abdominal pain. Workup underway. The patient will go for a paracentesis today. The patient was seen by Dr. Valente from GI standpoint. 3. Hypertension. 4. Coronary artery disease. The patient is being followed by Dr. Garcia. Continue Norvasc, aspirin, Zestril, lisinopril. 6. Diabetes. Blood sugar reasonably controlled with current dose of Lantus and sliding scale insulin. 7. History of coronary artery disease. Continue aspirin. 8. End-stage renal disease. The patient is being followed by Dr. Hines from nephrology standpoint. Continue hemodialysis. Further recommendation will depend on hospital course. Result Diagram: 08/18/18 1148 08/18/18 1148 Results 24hrs Laboratory Tests Test 08/18/18 17:26 08/18/18 21:27 08/19/18 08:10 08/19/18 11:40 Bedside Glucose 166 115 104 188 Exam/Review of Systems Exam Vitals Vital Signs Date Temp Pulse Resp B/P (MAP) Pulse Ox O2 O2 Flow FiO2 Time Delivery Rate 08/19/18 58 12:08 08/19/18 97.7 20 174/71 94 Room Air 11:55 (105) 08/15/18 21 23:15 Intake and Output 08/18/18 08/18/18 08/19/18 1515:00 23:00 07:00 IntakeIntake Total 720 ml BalanceBalance 720 ml Results Results 24hrs Laboratory Tests Test 08/18/18 17:26 08/18/18 21:27 08/19/18 08:10 08/19/18 11:40 Bedside Glucose 166 115 104 188 Medications Medication Current Medications Dextrose (D50w Syringe) ONCE PRN IV DECREASED GLUCOSE Last administered on 08/15/18at 23:48; Admin Dose 50 ML; Start 08/15/18 at 23:00 Zolpidem Tartrate (Ambien) 5 mg HS PRN PO INSOMNIA; Start 08/16/18 at 02:30 Atropine Sulfate (Atropine 1% Oph) 1 drop BID BOTH EYES Last administered on 08/19/18 08:12; Admin Dose 1 DROP; Start 08/16/18 at 09:00 Losartan Potassium (Cozaar) 50 mg DAILY PO Last administered on 08/19/18 10:21; Admin Dose 50 MG; Start 08/16/18 at 09:00 Carvedilol (Coreg) 6.25 mg BID PO Last administered on 08/19/18 10:22; Admin Dose 6.25 MG; Start 08/16/18 at 09:00 Clonidine (Catapres) 0.1 mg Q4H PRN PO ELEVATED BLOOD PRESSURE Last administered on 08/19/18 05:36; Admin Dose 0.1 MG; Start 08/16/18 at 08:30 Isosorbide Mononitrate (Imdur) 60 mg DAILY PO Last administered on 08/19/18 10:21; Admin Dose 60 MG; Start 08/16/18 at 11:00 Piperacillin Sod/ Tazobactam Sod 50 ml @ 200 mls/hr Q8 IVPB Last administered on 08/19/18 05:35; Admin Dose 200 MLS/HR; Start 08/16/18 at 14:00 Heparin Sodium (Porcine) (Heparin (1000 Units/ml)) 4,000 unit AFTER DIALYSIS CATHETER Last administered on 08/17/18 22:02; Admin Dose 4,000 UNIT; Start 08/16/18 at 12:30 Albumin Human 100 ml @ 100 mls/hr WITH DIALYSIS PRN IV SBP <90 DURING DIALYSIS; Start 08/16/18 at 12:30 Sodium Chloride (NS) -To prime the dialy... DIRECTED FOR HD PRN IV HD; Start 08/16/18 at 12:30 Nifedipine (Procardia Xl) 60 mg BID PO Last administered on 08/19/18 10:21; Admin Dose 60 MG; Start 08/16/18 at 21:00 Tobramycin Sulfate (Tobrex 0.3% Oph Drop) 1 drop Q6 LEFT EYE Last administered on 08/19/18 11:42; Admin Dose 1 DROP; Start 08/16/18 at 18:00; Stop 08/23/18 at 17:59 Famotidine (Pepcid) 20 mg QHS PO Last administered on 08/18/18at 20:51; Admin Dose 20 MG; Start 08/17/18 at 21:00 Minoxidil (Loniten) 5 mg BID PO Last administered on 08/19/18at 10:21; Admin Dose 5 MG; Start 08/17/18 at 21:00 Acetaminophen (Tylenol Tab) 650 mg Q6H PRN PO MILD PAIN(1-3)OR ELEVATED TEMP Last administered on 08/18/18at 10:26; Admin Dose 650 MG; Start 08/18/18 at 10:30 Diagnostic Test (Pha) (Accu-Chek) 1 ea 02 XX Last administered on 08/19/18at 02:00; Admin Dose 1 EA; Start 08/19/18 at 02:00 Insulin Aspart (Novolog Insulin Pen) NOVOLOG *MILD* ALGORITHM WITH MEALS BEDTIME SC Last administered on 08/19/18at 11:45; Admin Dose 2 UNIT; Start 07/23 02/06 at 12:00 Miscellaneous Information 1 ea NOTE XX ; Start 08/18/18 at 10:30 Glucose (Glutose) 15 gm Q15M PRN PO DECREASED GLUCOSE; Start 08/18/18 at 10:30 Glucose (Glutose) 22.5 gm Q15M PRN PO DECREASED GLUCOSE; Start 08/18/18 at 10:30 Dextrose (D50w Syringe) 25 ml Q15M PRN IV DECREASED GLUCOSE; Start 08/18/18 at 10:30 Dextrose (D50w Syringe) 50 ml Q15M PRN IV DECREASED GLUCOSE; Start 08/18/18 at 10:30 Glucagon (Glucagen) 1 mg Q15M PRN IM DECREASED GLUCOSE; Start 08/18/18 at 10:30 Glucose (Glutose) 15 gm Q15M PRN BUCCAL DECREASED GLUCOSE; Start 08/18/18 at 10:30 COREY SARAVIA Aug 19, 2018 15:20
[2018-08-19] MEDS: HEPARIN 1000 UNITS/ML 10 ML INJ CATHETER SCH (18:06)
--- NOTE | 2018-08-19 18:38 | CONS ---
Assessment/Plan Assessment/Plan Hospital Course (Demo Recall) assessment - organizing pneumonia based on Bx on 08/17/2018. nodular density of RLL on CXR 08/15/2018, multiple nodular densities within RLL, a nodule in LLL on CT 08/16/2018. s/p CT guided Bx on 08/17/2018, no e/o malignancy - URI, possible sinusitis, otitis. 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 Consultation Date/Type/Reason Admit Date/Time Aug 16, 2018 at 00:15 Initial Consult Date 08/17/18 Type of Consult ID Requesting Provider: HARMONY PETERSON MD Date/Time of Note DATE: 08/19/18 TIME: 18:35 24 HR Interval Summary Constitutional: improved Detailed Summary Eyes: other (blind) ENT: other (denies pain of b/l ears); No pain, No congestion, No dysphagia, No sore throat Respiratory: cough, sputum; No pleuritic pain, No shortness of breath Cardiovascular: no complaints Gastrointestinal: no complaints Genitourinary: other (HC) Musculoskeletal: no complaints Skin: No pruritis Neurologic: No headache Exam/Review of Systems Exam Vitals Vital Signs Date Temp Pulse Resp B/P (MAP) Pulse Ox O2 O2 Flow FiO2 Time Delivery Rate 08/19/18 60 18:15 08/19/18 97.8 171/74 Room Air 15:37 (106) 08/19/18 16 98 15:30 08/15/18 21 23:15 Intake and Output 08/18/18 08/18/18 08/19/18 1414:59 22:59 06:59 IntakeIntake Total 720 ml BalanceBalance 720 ml Constitutional: alert, oriented Psych: no complaints Head: normocephalic, atraumatic Eyes: other (blind) ENMT: nl external ears & nose, nl nasal mucosa & septum, other (sinuses are non-TTP) Neck: supple, other (not swollen) Respiratory: congested cough Cardiovascular: regular rate and rhythm, nl pulses; No edema Gastrointestinal: soft, non-tender; No distended, No tender Genitourinary - Male: other (HC) Musculoskeletal: nl extremities to inspection Extremities: No edema 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: nl mental status, nl speech, nl strength Skin: nl turgor; No rash or lesions Results Result Diagram: 08/18/18 1148 08/18/18 1148 Results 24hrs Laboratory Tests Test 08/18/18 21:27 08/19/18 08:10 08/19/18 11:40 08/19/18 18:08 Bedside Glucose 115 104 188 241 H Medications Medication Current Medications Dextrose (D50w Syringe) ONCE PRN IV DECREASED GLUCOSE Last administered on 07/23 23:48; Admin Dose 50 ML; Start 08/15/18 at 23:00 Zolpidem Tartrate (Ambien) 5 mg HS PRN PO INSOMNIA; Start 08/16/18 at 02:30 Atropine Sulfate (Atropine 1% Oph) 1 drop BID BOTH EYES Last administered on 08/19/18 08:12; Admin Dose 1 DROP; Start 08/16/18 at 09:00 Losartan Potassium (Cozaar) 50 mg DAILY PO Last administered on 08/19/18 10:21; Admin Dose 50 MG; Start 08/16/18 at 09:00 Carvedilol (Coreg) 6.25 mg BID PO Last administered on 08/19/18 10:22; Admin Dose 6.25 MG; Start 08/16/18 at 09:00 Clonidine (Catapres) 0.1 mg Q4H PRN PO ELEVATED BLOOD PRESSURE Last administered on 08/19/18 05:36; Admin Dose 0.1 MG; Start 08/16/18 at 08:30 Isosorbide Mononitrate (Imdur) 60 mg DAILY PO Last administered on 08/19/18 10:21; Admin Dose 60 MG; Start 08/16/18 at 11:00 Piperacillin Sod/ Tazobactam Sod 50 ml @ 200 mls/hr Q8 IVPB Last administered on 08/19/18 18:10; Admin Dose 200 MLS/HR; Start 08/16/18 at 14:00 Heparin Sodium (Porcine) (Heparin (1000 Units/ml)) 4,000 unit AFTER DIALYSIS CATHETER Last administered on 08/19/18 18:06; Admin Dose 4,000 UNIT; Start 08/16/18 at 12:30 Albumin Human 100 ml @ 100 mls/hr WITH DIALYSIS PRN IV SBP <90 DURING DIALYSIS; Start 08/16/18 at 12:30 Sodium Chloride (NS) -To prime the dialy... DIRECTED FOR HD PRN IV HD; Start 08/16/18 at 12:30 Nifedipine (Procardia Xl) 60 mg BID PO Last administered on 08/19/18 10:21; Admin Dose 60 MG; Start 08/16/18 at 21:00 Tobramycin Sulfate (Tobrex 0.3% Oph Drop) 1 drop Q6 LEFT EYE Last administered on 08/19/18 18:09; Admin Dose 1 DROP; Start 08/16/18 at 18:00; Stop 08/23/18 at 17:59 Famotidine (Pepcid) 20 mg QHS PO Last administered on 08/18/18 20:51; Admin Dose 20 MG; Start 08/17/18 at 21:00 Minoxidil (Loniten) 5 mg BID PO Last administered on 08/19/18 10:21; Admin Dose 5 MG; Start 08/17/18 at 21:00 Acetaminophen (Tylenol Tab) 650 mg Q6H PRN PO MILD PAIN(1-3)OR ELEVATED TEMP Last administered on 08/18/18 10:26; Admin Dose 650 MG; Start 08/18/18 at 10:30 Diagnostic Test (Pha) (Accu-Chek) 1 ea 02 XX Last administered on 08/19/18at 02:00; Admin Dose 1 EA; Start 08/19/18 at 02:00 Insulin Aspart (Novolog Insulin Pen) NOVOLOG *MILD* ALGORITHM WITH MEALS BEDTIME SC Last administered on 08/19/18 18:14; Admin Dose 3 UNIT; Start 08/18/18 at 12:00 Miscellaneous Information 1 ea NOTE XX ; Start 08/18/18 at 10:30 Glucose (Glutose) 15 gm Q15M PRN PO DECREASED GLUCOSE; Start 08/18/18 at 10:30 Glucose (Glutose) 22.5 gm Q15M PRN PO DECREASED GLUCOSE; Start 08/18/18 at 10:30 Dextrose (D50w Syringe) 25 ml Q15M PRN IV DECREASED GLUCOSE; Start 08/18/18 at 10:30 Dextrose (D50w Syringe) 50 ml Q15M PRN IV DECREASED GLUCOSE; Start 08/18/18 at 10:30 Glucagon (Glucagen) 1 mg Q15M PRN IM DECREASED GLUCOSE; Start 08/18/18 at 10:30 Glucose (Glutose) 15 gm Q15M PRN BUCCAL DECREASED GLUCOSE; Start 08/18/18 at 10:30 ANTONY RAND M.D. Aug 19, 2018 18:38
[2018-08-19] MEDS: FAMOTIDINE 20 MG TAB PO SCH (20:38)
[2018-08-20] VITALS (12 sets, daily range): BP systolic 147–208; BP diastolic 62–98; PULSE 57–65; RESP 16–20
[2018-08-20] MEDS: ACCU-CHEK XX SCH (02:00)
[2018-08-20] MEDS: TOBRAMYCIN 0.3% 5 ML OPH LEFT EYE SCH ×4 (06:26→17:41)
[2018-08-20] MEDS: PIPER-TAZO 2.25 GM (PMX) 50 ML IVPB SCH ×3 (06:26→21:53)
[2018-08-20] MEDS: INSULIN ASPART [NOVOLOG] 3 ML PEN SC SCH ×4 (07:48→20:17)
[2018-08-20] MEDS: ISOSORBIDE MONONITRATE(SR)60 MG TAB PO SCH (08:16)
[2018-08-20] MEDS: ATROPINE 1% 5 ML OPH BOTH EYES SCH ×2 (08:16→20:13)
[2018-08-20] MEDS: LOSARTAN 50 MG TAB PO SCH (08:16)
[2018-08-20] MEDS: NIFEdipine (XL) 60 MG TAB PO SCH ×2 (08:16→20:12)
[2018-08-20] MEDS: MINOXIDIL 2.5 MG TAB PO SCH ×2 (08:16→20:12)
--- NOTE | 2018-08-20 12:23 | PN ---
Date/Time of Note Date/Time of Note DATE: 08/20/18 TIME: 12:22 Assessment/Plan VTE Prophylaxis Risk score (from Ns)>0 risk: 3 SCD applied (from Ns): Yes Lines/Catheters IV Catheter Type (from Nrs): Peripheral IV Urinary Cath still in place: No Assessment/Plan Assessment/Plan 1. Pneumonia. Continue cefepime. The patient clinically has been improving. 2. Status post nausea, vomiting, and abdominal pain. Workup underway. The patient will go for a paracentesis today. The patient was seen by Dr. Valente from GI standpoint. 3. Hypertension. 4. Coronary artery disease. The patient is being followed by Dr. Garcia. Continue Norvasc, aspirin, Zestril, lisinopril. 6. Diabetes. Blood sugar reasonably controlled with current dose of Lantus and sliding scale insulin. 7. History of coronary artery disease. Continue aspirin. 8. End-stage renal disease. The patient is being followed by Dr. Hines from nephrology standpoint. Continue hemodialysis. Further recommendation will depend on hospital course. 9. Right lung mass- per oncology Result Diagram: 08/20/1852308/20/18523 Results 24hrs Laboratory Tests Test 08/19/18 18:08 08/19/18 20:37 08/20/18 05:24 08/20/18 07:46 Bedside Glucose 241 H 132 87 White Blood Count 3.1 #L Red Blood Count 3.95 L Hemoglobin 11.7 L Hematocrit 36.1 L Mean Corpuscular Volume 91.4 Mean Corpuscular 29.6 Hemoglobin Mean Corpuscular 32.4 Hemoglobin Concent Red Cell Distribution 13.2 Width Platelet Count 119 L Mean Platelet Volume 10.1 Immature Granulocytes % 0.300 Neutrophils % 49.7 Lymphocytes % 22.5 Monocytes % 9.2 Eosinophils % 17.6 H Basophils % 0.7 Nucleated Red Blood 0.0 Cells % Immature Granulocytes # 0.010 Neutrophils # 1.5 L Lymphocytes # 0.7 L Monocytes # 0.3 Eosinophils # 0.5 Basophils # 0.0 Nucleated Red Blood 0.0 Cells # Sodium Level 138 Potassium Level 5.1 Chloride Level 100 Carbon Dioxide Level 23 Anion Gap 15 H Blood Urea Nitrogen 42 H Creatinine 7.29 H Est Glomerular Filtrat 8 L Rate mL/min Glucose Level 88 # Calcium Level 8.1 L Test 08/20/18 12:07 Bedside Glucose 110 Exam/Review of Systems Exam Vitals Vital Signs Date Temp Pulse Resp B/P (MAP) Pulse Ox O2 O2 Flow FiO2 Time Delivery Rate 08/20/18 97.8 62 19 168/72 99 12:09 (104) 08/20/18 Room Air 07:08 Intake and Output 08/19/18 08/19/18 08/20/18 1515:00 23:00 07:00 IntakeIntake Total 400 ml 720 ml 100 ml OutputOutput Total 200 ml 3500 ml BalanceBalance 200 ml -2780 ml 100 ml Results Results 24hrs Laboratory Tests Test 08/19/18 18:08 08/19/18 20:37 08/20/18 05:24 08/20/18 07:46 Bedside Glucose 241 H 132 87 White Blood Count 3.1 #L Red Blood Count 3.95 L Hemoglobin 11.7 L Hematocrit 36.1 L Mean Corpuscular Volume 91.4 Mean Corpuscular 29.6 Hemoglobin Mean Corpuscular 32.4 Hemoglobin Concent Red Cell Distribution 13.2 Width Platelet Count 119 L Mean Platelet Volume 10.1 Immature Granulocytes % 0.300 Neutrophils % 49.7 Lymphocytes % 22.5 Monocytes % 9.2 Eosinophils % 17.6 H Basophils % 0.7 Nucleated Red Blood 0.0 Cells % Immature Granulocytes # 0.010 Neutrophils # 1.5 L Lymphocytes # 0.7 L Monocytes # 0.3 Eosinophils # 0.5 Basophils # 0.0 Nucleated Red Blood 0.0 Cells # Sodium Level 138 Potassium Level 5.1 Chloride Level 100 Carbon Dioxide Level 23 Anion Gap 15 H Blood Urea Nitrogen 42 H Creatinine 7.29 H Est Glomerular Filtrat 8 L Rate mL/min Glucose Level 88 # Calcium Level 8.1 L Test 08/20/18 12:07 Bedside Glucose 110 Medications Medication Current Medications Dextrose (D50w Syringe) ONCE PRN IV DECREASED GLUCOSE Last administered on 08/15/18at 23:48; Admin Dose 50 ML; Start 08/15/18 at 23:00 Zolpidem Tartrate (Ambien) 5 mg HS PRN PO INSOMNIA; Start 08/16/18 at 02:30 Atropine Sulfate (Atropine 1% Oph) 1 drop BID BOTH EYES Last administered on 08/20/18at 08:16; Admin Dose 1 DROP; Start 08/16/18 at 09:00 Losartan Potassium (Cozaar) 50 mg DAILY PO Last administered on 08/20/18 08:16; Admin Dose 50 MG; Start 08/16/18 at 09:00 Carvedilol (Coreg) 6.25 mg BID PO Last administered on 08/20/18 08:17; Admin Dose 6.25 MG; Start 08/16/18 at 09:00 Clonidine (Catapres) 0.1 mg Q4H PRN PO ELEVATED BLOOD PRESSURE Last administered on 08/19/18 05:36; Admin Dose 0.1 MG; Start 08/16/18 at 08:30 Isosorbide Mononitrate (Imdur) 60 mg DAILY PO Last administered on 08/20/18 08:16; Admin Dose 60 MG; Start 08/16/18 at 11:00 Piperacillin Sod/ Tazobactam Sod 50 ml @ 200 mls/hr Q8 IVPB Last administered on 08/20/18 06:26; Admin Dose 200 MLS/HR; Start 08/16/18 at 14:00 Heparin Sodium (Porcine) (Heparin (1000 Units/ml)) 4,000 unit AFTER DIALYSIS CATHETER Last administered on 08/19/18 18:06; Admin Dose 4,000 UNIT; Start 08/16/18 at 12:30 Albumin Human 100 ml @ 100 mls/hr WITH DIALYSIS PRN IV SBP <90 DURING DIALYSIS; Start 08/16/18 at 12:30 Sodium Chloride (NS) -To prime the dialy... DIRECTED FOR HD PRN IV HD; Start 08/16/18 at 12:30 Nifedipine (Procardia Xl) 60 mg BID PO Last administered on 08/20/18 08:16; Admin Dose 60 MG; Start 08/16/18 at 21:00 Tobramycin Sulfate (Tobrex 0.3% Oph Drop) 1 drop Q6 LEFT EYE Last administered on 08/20/18 12:11; Admin Dose 1 DROP; Start 08/16/18 at 18:00; Stop 08/23/18 at 17:59 Famotidine (Pepcid) 20 mg QHS PO Last administered on 08/19/18 20:38; Admin Dose 20 MG; Start 08/17/18 at 21:00 Minoxidil (Loniten) 5 mg BID PO Last administered on 08/20/18at 08:16; Admin Dose 5 MG; Start 08/17/18 at 21:00 Acetaminophen (Tylenol Tab) 650 mg Q6H PRN PO MILD PAIN(1-3)OR ELEVATED TEMP Last administered on 08/18/18at 10:26; Admin Dose 650 MG; Start 08/18/18 at 10:30 Diagnostic Test (Pha) (Accu-Chek) 1 ea 02 XX Last administered on 08/19/18at 02:00; Admin Dose 1 EA; Start 08/19/18 at 02:00 Insulin Aspart (Novolog Insulin Pen) NOVOLOG *MILD* ALGORITHM WITH MEALS BEDTIME SC Last administered on 08/19/18at 18:14; Admin Dose 3 UNIT; Start 08/18/18 at 12:00 Miscellaneous Information 1 ea NOTE XX ; Start 08/18/18 at 10:30 Glucose (Glutose) 15 gm Q15M PRN PO DECREASED GLUCOSE; Start 08/18/18 at 10:30 Glucose (Glutose) 22.5 gm Q15M PRN PO DECREASED GLUCOSE; Start 08/18/18 at 10:30 Dextrose (D50w Syringe) 25 ml Q15M PRN IV DECREASED GLUCOSE; Start 08/18/18 at 10:30 Dextrose (D50w Syringe) 50 ml Q15M PRN IV DECREASED GLUCOSE; Start 08/18/18 at 10:30 Glucagon (Glucagen) 1 mg Q15M PRN IM DECREASED GLUCOSE; Start 08/18/18 at 10:30 Glucose (Glutose) 15 gm Q15M PRN BUCCAL DECREASED GLUCOSE; Start 08/18/18 at 10:30 COREY SARAVIA Aug 20, 2018 12:23
--- NOTE | 2018-08-20 12:56 | CONS ---
Assessment/Plan Assessment/Plan Assessment/Plan (Daily) 1. acute hyperkalemia - resolved now 2. ESRD on HD MWF 3. accelerateD HTN - improving BP control 4. acute chest pain 5.type II DM with hyperglycemia 6. H/o HTN Plan: Nifedipine 60mg pO BID, s/p HD yesterday -3 L removed, pt regular schedule for HD is MWF - will order Next HD on Wednesday IV abx as per ID will follow up Consultation Date/Type/Reason Admit Date/Time Aug 16, 2018 at 00:15 Initial Consult Date 08/16/18 Type of Consult NEPHROLOGY Requesting Provider: HARMONY PETERSON MD Date/Time of Note DATE: 08/20/18 TIME: 12:56 Exam/Review of Systems Exam Vitals Vital Signs Date Temp Pulse Resp B/P (MAP) Pulse Ox O2 O2 Flow FiO2 Time Delivery Rate 08/20/18 97.8 62 19 168/72 99 12:09 (104) 08/20/18 Room Air 07:08 Intake and Output 08/19/18 08/19/18 08/20/18 1515:00 23:00 07:00 IntakeIntake Total 400 ml 720 ml 100 ml OutputOutput Total 200 ml 3500 ml BalanceBalance 200 ml -2780 ml 100 ml Exam Constitutional: alert, awake, no acute distress Respiratory: clear to auscultation, normal air movement, diminished breath sounds Cardiovascular: regular rate and rhythm, nl pulses Gastrointestinal: soft, non-tender Musculoskeletal: muscle tone, swelling Extremities: normal pulses 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, nl mental status, nl speech, nl strength Lymph: nl lymph nodes Results Result Diagram: 08/20/1824 08/20/1824 Results 24hrs Laboratory Tests Test 08/19/18 18:08 08/19/18 20:37 08/20/18 05:24 08/20/18 07:46 Bedside Glucose 241 H 132 87 White Blood Count 3.1 #L Red Blood Count 3.95 L Hemoglobin 11.7 L Hematocrit 36.1 L Mean Corpuscular Volume 91.4 Mean Corpuscular 29.6 Hemoglobin Mean Corpuscular 32.4 Hemoglobin Concent Red Cell Distribution 13.2 Width Platelet Count 119 L Mean Platelet Volume 10.1 Immature Granulocytes % 0.300 Neutrophils % 49.7 Lymphocytes % 22.5 Monocytes % 9.2 Eosinophils % 17.6 H Basophils % 0.7 Nucleated Red Blood 0.0 Cells % Immature Granulocytes # 0.010 Neutrophils # 1.5 L Lymphocytes # 0.7 L Monocytes # 0.3 Eosinophils # 0.5 Basophils # 0.0 Nucleated Red Blood 0.0 Cells # Sodium Level 138 Potassium Level 5.1 Chloride Level 100 Carbon Dioxide Level 23 Anion Gap 15 H Blood Urea Nitrogen 42 H Creatinine 7.29 H Est Glomerular Filtrat 8 L Rate mL/min Glucose Level 88 # Calcium Level 8.1 L Test 08/20/18 12:07 Bedside Glucose 110 Medications Medication Current Medications Dextrose (D50w Syringe) ONCE PRN IV DECREASED GLUCOSE Last administered on 08/15/18 23:48; Admin Dose 50 ML; Start 08/15/18 at 23:00 Zolpidem Tartrate (Ambien) 5 mg HS PRN PO INSOMNIA; Start 08/16/18 at 02:30 Atropine Sulfate (Atropine 1% Oph) 1 drop BID BOTH EYES Last administered on 08/20/18 08:16; Admin Dose 1 DROP; Start 08/16/18 at 09:00 Losartan Potassium (Cozaar) 50 mg DAILY PO Last administered on 08/20/18 08:16; Admin Dose 50 MG; Start 08/16/18 at 09:00 Carvedilol (Coreg) 6.25 mg BID PO Last administered on 08/20/18 08:17; Admin Dose 6.25 MG; Start 08/16/18 at 09:00 Clonidine (Catapres) 0.1 mg Q4H PRN PO ELEVATED BLOOD PRESSURE Last administered on 08/19/18 05:36; Admin Dose 0.1 MG; Start 08/16/18 at 08:30 Isosorbide Mononitrate (Imdur) 60 mg DAILY PO Last administered on 08/20/18 08:16; Admin Dose 60 MG; Start 08/16/18 at 11:00 Piperacillin Sod/ Tazobactam Sod 50 ml @ 200 mls/hr Q8 IVPB Last administered on 08/20/18 06:26; Admin Dose 200 MLS/HR; Start 08/16/18 at 14:00 Heparin Sodium (Porcine) (Heparin (1000 Units/ml)) 4,000 unit AFTER DIALYSIS CATHETER Last administered on 3/1/19at 18:06; Admin Dose 4,000 UNIT; Start 08/16/18 at 12:30 Albumin Human 100 ml @ 100 mls/hr WITH DIALYSIS PRN IV SBP <90 DURING DIALYSIS; Start 08/16/18 at 12:30 Sodium Chloride (NS) -To prime the dialy... DIRECTED FOR HD PRN IV HD; Start 08/16/18 at 12:30 Nifedipine (Procardia Xl) 60 mg BID PO Last administered on 08/20/18at 08:16; Admin Dose 60 MG; Start 08/16/18 at 21:00 Tobramycin Sulfate (Tobrex 0.3% Oph Drop) 1 drop Q6 LEFT EYE Last administered on 08/20/18at 12:11; Admin Dose 1 DROP; Start 08/16/18 at 18:00; Stop 08/23/18 at 17:59 Famotidine (Pepcid) 20 mg QHS PO Last administered on 08/19/18at 20:38; Admin Dose 20 MG; Start 08/17/18 at 21:00 Minoxidil (Loniten) 5 mg BID PO Last administered on 08/20/18at 08:16; Admin Dose 5 MG; Start 08/17/18 at 21:00 Acetaminophen (Tylenol Tab) 650 mg Q6H PRN PO MILD PAIN(1-3)OR ELEVATED TEMP Last administered on 08/18/18at 10:26; Admin Dose 650 MG; Start 08/18/18 at 10:30 Diagnostic Test (Pha) (Accu-Chek) 1 ea 02 XX Last administered on 08/19/18at 02:00; Admin Dose 1 EA; Start 08/19/18 at 02:00 Insulin Aspart (Novolog Insulin Pen) NOVOLOG *MILD* ALGORITHM WITH MEALS BEDTIME SC Last administered on 08/19/18at 18:14; Admin Dose 3 UNIT; Start 08/18/18 at 12:00 Miscellaneous Information 1 ea NOTE XX ; Start 08/18/18 at 10:30 Glucose (Glutose) 15 gm Q15M PRN PO DECREASED GLUCOSE; Start 08/18/18 at 10:30 Glucose (Glutose) 22.5 gm Q15M PRN PO DECREASED GLUCOSE; Start 08/18/18 at 10:30 Dextrose (D50w Syringe) 25 ml Q15M PRN IV DECREASED GLUCOSE; Start 08/18/18 at 10:30 Dextrose (D50w Syringe) 50 ml Q15M PRN IV DECREASED GLUCOSE; Start 08/18/18 at 10:30 Glucagon (Glucagen) 1 mg Q15M PRN IM DECREASED GLUCOSE; Start 08/18/18 at 10:30 Glucose (Glutose) 15 gm Q15M PRN BUCCAL DECREASED GLUCOSE; Start 08/18/18 at 10:30 VALERIA RODRÍGUEZ MD Aug 20, 2018 12:56
--- NOTE | 2018-08-20 14:06 | CONS ---
Consult Date/Type/Reason Admit Date/Time Aug 16, 2018 at 00:15 Initial Consult Date 08/17/18 Type of Consultation: Pulm Requesting Provider: HARMONY PETERSON MD Date/Time of Note DATE: 08/20/18 TIME: 14:[address] scan and pathology reviewed. Objective Vitals Vital Signs Date Temp Pulse Resp B/P (MAP) Pulse Ox O2 O2 Flow FiO2 Time Delivery Rate 08/20/18 97.8 62 19 168/72 99 12:09 (104) 08/20/18 Room Air 07:08 Intake and Output 08/19/18 08/19/18 08/20/18 1515:00 23:00 07:00 IntakeIntake Total 400 ml 720 ml 100 ml OutputOutput Total 200 ml 3500 ml BalanceBalance 200 ml -2780 ml 100 ml Exam HEENT: Neck supple; no JVD; no LAD CVS: RRR, S1 and S2 CHEST: Clear ABD: Soft, NT, + BS EXT: No c/c/e Results/Medications Result Diagram: 08/20/1852308/20/1824 Results 24 hrs Laboratory Tests Test 08/19/18 18:08 08/19/18 20:37 08/20/18 05:24 08/20/18 07:46 Bedside Glucose 241 H 132 87 White Blood Count 3.1 #L Red Blood Count 3.95 L Hemoglobin 11.7 L Hematocrit 36.1 L Mean Corpuscular Volume 91.4 Mean Corpuscular 29.6 Hemoglobin Mean Corpuscular 32.4 Hemoglobin Concent Red Cell Distribution 13.2 Width Platelet Count 119 L Mean Platelet Volume 10.1 Immature Granulocytes % 0.300 Neutrophils % 49.7 Lymphocytes % 22.5 Monocytes % 9.2 Eosinophils % 17.6 H Basophils % 0.7 Nucleated Red Blood 0.0 Cells % Immature Granulocytes # 0.010 Neutrophils # 1.5 L Lymphocytes # 0.7 L Monocytes # 0.3 Eosinophils # 0.5 Basophils # 0.0 Nucleated Red Blood 0.0 Cells # Sodium Level 138 Potassium Level 5.1 Chloride Level 100 Carbon Dioxide Level 23 Anion Gap 15 H Blood Urea Nitrogen 42 H Creatinine 7.29 H Est Glomerular Filtrat 8 L Rate mL/min Glucose Level 88 # Calcium Level 8.1 L Test 08/20/18 12:07 Bedside Glucose 110 Home Meds Reported Medications Nifedipine* (Nifedipine ER*) 90 Mg Tablet.er, 90 MG PO DAILY, TAB 08/15/18 Carvedilol* (Carvedilol*) 6.25 Mg Tablet, 6.25 MG PO BID, #60 TAB 08/15/18 Isosorbide Mononitrate* (Isosorbide Mononitrate*) 60 Mg Tab.er.24h, 60 MG PO DAILY, TAB 08/15/18 Losartan Potassium* (Losartan Potassium*) 50 Mg Tablet, 50 MG PO DAILY, TAB 08/15/18 Minoxidil* (Lonitin*) 2.5 Mg Tab, 2.5 MG PO BID, TAB 08/15/18 Famotidine* (Famotidine*) 20 Mg Tablet, 20 MG PO BID, #60 TAB 08/15/18 Atropine Sulfate/0.9 %Sod Chlr (Atropine 0.01%-Ns Eye Drops) 10 Ml Drops, 15 ML OP BID, BOTTLE 08/15/18 Tamsulosin Hcl* (Tamsulosin Hcl*) 0.4 Mg Cap.er.24h, 0.4 MG PO DAILY, CAP 08/15/18 Clonidine Hcl* (Clonidine Hcl*) 0.1 Mg Tab, 0.2 MG PO BID PRN for ELEVATED BLOOD PRESSURE, TAB 08/15/18 Sevelamer Carbonate* (Renvela*) 800 Mg Tablet, 0.8 GM PO WITH MEALS, TAB 08/15/18 Medications Current Medications Dextrose (D50w Syringe) ONCE PRN IV DECREASED GLUCOSE Last administered on 08/15/18at 23:48; Admin Dose 50 ML; Start 08/15/18 at 23:00 Zolpidem Tartrate (Ambien) 5 mg HS PRN PO INSOMNIA; Start 08/16/18 at 02:30 Atropine Sulfate (Atropine 1% Oph) 1 drop BID BOTH EYES Last administered on 08/20/18 08:16; Admin Dose 1 DROP; Start 08/16/18 at 09:00 Losartan Potassium (Cozaar) 50 mg DAILY PO Last administered on 08/20/18 08:16; Admin Dose 50 MG; Start 08/16/18 at 09:00 Carvedilol (Coreg) 6.25 mg BID PO Last administered on 08/20/18at 08:17; Admin Dose 6.25 MG; Start 08/16/18 at 09:00 Clonidine (Catapres) 0.1 mg Q4H PRN PO ELEVATED BLOOD PRESSURE Last administered on 08/19/18 05:36; Admin Dose 0.1 MG; Start 08/16/18 at 08:30 Isosorbide Mononitrate (Imdur) 60 mg DAILY PO Last administered on 08/20/18 08:16; Admin Dose 60 MG; Start 08/16/18 at 11:00 Piperacillin Sod/ Tazobactam Sod 50 ml @ 200 mls/hr Q8 IVPB Last administered on 08/20/18 13:24; Admin Dose 200 MLS/HR; Start 08/16/18 at 14:00 Heparin Sodium (Porcine) (Heparin (1000 Units/ml)) 4,000 unit AFTER DIALYSIS CATHETER Last administered on 08/19/18 18:06; Admin Dose 4,000 UNIT; Start 08/16/18 at 12:30 Albumin Human 100 ml @ 100 mls/hr WITH DIALYSIS PRN IV SBP <90 DURING DIALY SIS; Start 08/16/18 at 12:30 Sodium Chloride (NS) -To prime the dialy... DIRECTED FOR HD PRN IV HD; Start 08/16/18 at 12:30 Nifedipine (Procardia Xl) 60 mg BID PO Last administered on 08/20/18 08:16; Admin Dose 60 MG; Start 08/16/18 at 21:00 Tobramycin Sulfate (Tobrex 0.3% Oph Drop) 1 drop Q6 LEFT EYE Last administered on 08/20/18 12:11; Admin Dose 1 DROP; Start 08/16/18 at 18:00; Stop 08/23/18 at 17:59 Famotidine (Pepcid) 20 mg QHS PO Last administered on 08/19/18 20:38; Admin Dose 20 MG; Start 08/17/18 at 21:00 Minoxidil (Loniten) 5 mg BID PO Last administered on 08/20/18 08:16; Admin Dose 5 MG; Start 08/17/18 at 21:00 Acetaminophen (Tylenol Tab) 650 mg Q6H PRN PO MILD PAIN(1-3)OR ELEVATED TEMP Last administered on 08/18/18 10:26; Admin Dose 650 MG; Start 08/18/18 at 10:30 Diagnostic Test (Pha) (Accu-Chek) 1 ea 02 XX Last administered on 08/19/18at 02:00; Admin Dose 1 EA; Start 08/19/18 at 02:00 Insulin Aspart (Novolog Insulin Pen) NOVOLOG *MILD* ALGORITHM WITH MEALS BEDTIME SC Last administered on 08/19/18at 18:14; Admin Dose 3 UNIT; Start 08/18/18 at 12:00 Miscellaneous Information 1 ea NOTE XX ; Start 08/18/18 at 10:30 Glucose (Glutose) 15 gm Q15M PRN PO DECREASED GLUCOSE; Start 08/18/18 at 10:30 Glucose (Glutose) 22.5 gm Q15M PRN PO DECREASED GLUCOSE; Start 08/18/18 at 10:30 Dextrose (D50w Syringe) 25 ml Q15M PRN IV DECREASED GLUCOSE; Start 08/18/18 at 10:30 Dextrose (D50w Syringe) 50 ml Q15M PRN IV DECREASED GLUCOSE; Start 08/18/18 at 10:30 Glucagon (Glucagen) 1 mg Q15M PRN IM DECREASED GLUCOSE; Start 08/18/18 at 10:30 Glucose (Glutose) 15 gm Q15M PRN BUCCAL DECREASED GLUCOSE; Start 08/18/18 at 10:30 Assessment/Plan Assessment/Plan (Daily) IMP: 1. 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 Once infectious work-up negative, would consider treatment with prednisone 1 mg/kg/day with a slow taper over 6 months. ELIAS ZUNIGA MD Aug 20, 2018 14:06
[2018-08-20] MEDS: ZOLPIDEM 5 MG TAB PO PRN (20:11)
[2018-08-20] MEDS: FAMOTIDINE 20 MG TAB PO SCH (20:12)
--- NOTE | 2018-08-20 22:44 | CONS ---
Assessment/Plan Assessment/Plan Hospital Course (Demo Recall) assessment - organizing pneumonia based on Bx on 08/17/2018. nodular density of RLL on CXR 08/15/2018, multiple nodular densities within RLL, a nodule in LLL on CT 08/16/2018. s/p CT guided Bx on 08/17/2018, no e/o malignancy - URI, possible sinusitis, otitis. CT sinus on 08/16/2018 showed paranasal sinus mucosal disease - L retro-orbital pain and L corneal opacity (plus eye discharge according to Pt's RN's note), possible keratitis, improved - b/l blindness - DM - CAD - h/o [place] - h/o CABG - ESRD on HD recommendations - pending results: quantiferon TB old, coccidioides serology, tissue (fungal and AFB cultures), (Q TB gold negative, AFB smear of sputum was negative x3 and HIV test negative) - end pip/tazo (08/15/2018-) today - end tobramycin eye drop (08/16/2018-) today management d/w Pt Consultation Date/Type/Reason Admit Date/Time Aug 16, 2018 at 00:15 Initial Consult Date 08/17/18 Type of Consult ID Requesting Provider: HARMONY PETERSON MD Date/Time of Note DATE: 08/20/18 TIME: 22:41 24 HR Interval Summary Constitutional: improved Detailed Summary Eyes: other (blind (chronic)) ENT: other (earache is better) Respiratory: no complaints Cardiovascular: no complaints Gastrointestinal: no complaints Genitourinary: other (HC) Musculoskeletal: no complaints Skin: no complaints Neurologic: no complaints Exam/Review of Systems Exam Vitals Vital Signs Date Temp Pulse Resp B/P (MAP) Pulse Ox O2 O2 Flow FiO2 Time Delivery Rate 08/20/18 97.8 61 16 208/98 97 Room Air 20:05 (134) Intake and Output 08/19/18 08/19/18 08/20/18 1515:00 23:00 07:00 IntakeIntake Total 400 ml 720 ml 100 ml OutputOutput Total 200 ml 3500 ml BalanceBalance 200 ml -2780 ml 100 ml Constitutional: alert, frail Psych: no complaints, nl mood/affect Head: normocephalic, atraumatic Eyes: other (L cloudy cornea, b/l blind) ENMT: nl external ears & nose, nl nasal mucosa & septum, other (sinuses are non-TTP) Neck: supple, non-tender Respiratory: clear to auscultation, normal air movement, congested cough Cardiovascular: regular rate and rhythm, nl pulses; No edema Gastrointestinal: soft, non-tender; No distended, No tender Musculoskeletal: nl extremities to inspection Extremities: No edema 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: nl mental status, nl speech, nl strength Skin: nl turgor; No rash or lesions Results Result Diagram: 08/20/1852308/20/18523 Results 24hrs Laboratory Tests Test 08/20/18 05:24 08/20/18 07:46 08/20/18 12:07 08/20/18 16:54 White Blood Count 3.1 #L Red Blood Count 3.95 L Hemoglobin 11.7 L Hematocrit 36.1 L Mean Corpuscular Volume 91.4 Mean Corpuscular 29.6 Hemoglobin Mean Corpuscular 32.4 Hemoglobin Concent Red Cell Distribution 13.2 Width Platelet Count 119 L Mean Platelet Volume 10.1 Immature Granulocytes % 0.300 Neutrophils % 49.7 Lymphocytes % 22.5 Monocytes % 9.2 Eosinophils % 17.6 H Basophils % 0.7 Nucleated Red Blood 0.0 Cells % Immature Granulocytes # 0.010 Neutrophils # 1.5 L Lymphocytes # 0.7 L Monocytes # 0.3 Eosinophils # 0.5 Basophils # 0.0 Nucleated Red Blood 0.0 Cells # Sodium Level 138 Potassium Level 5.1 Chloride Level 100 Carbon Dioxide Level 23 Anion Gap 15 H Blood Urea Nitrogen 42 H Creatinine 7.29 H Est Glomerular Filtrat 8 L Rate mL/min Glucose Level 88 # Calcium Level 8.1 L Bedside Glucose 87 110 131 Test 08/20/18 20:16 Bedside Glucose 155 Medications Medication Current Medications Dextrose (D50w Syringe) ONCE PRN IV DECREASED GLUCOSE Last administered on 08/15/18at 23:48; Admin Dose 50 ML; Start 08/15/18 at 23:00 Zolpidem Tartrate (Ambien) 5 mg HS PRN PO INSOMNIA Last administered on 08/20/18 20:11; Admin Dose 5 MG; Start 08/16/18 at 02:30 Atropine Sulfate (Atropine 1% Oph) 1 drop BID BOTH EYES Last administered on 08/20/18 20:13; Admin Dose 1 DROP; Start 08/16/18 at 09:00 Losartan Potassium (Cozaar) 50 mg DAILY PO Last administered on 08/20/18 08:16; Admin Dose 50 MG; Start 08/16/18 at 09:00 Carvedilol (Coreg) 6.25 mg BID PO Last administered on 08/20/18 20:12; Admin Dose 6.25 MG; Start 08/16/18 at 09:00 Clonidine (Catapres) 0.1 mg Q4H PRN PO ELEVATED BLOOD PRESSURE Last administered on 08/20/18 20:13; Admin Dose 0.1 MG; Start 08/16/18 at 08:30 Isosorbide Mononitrate (Imdur) 60 mg DAILY PO Last administered on 08/20/18 08:16; Admin Dose 60 MG; Start 08/16/18 at 11:00 Piperacillin Sod/ Tazobactam Sod 50 ml @ 200 mls/hr Q8 IVPB Last administered on 08/20/18 21:53; Admin Dose 200 MLS/HR; Start 08/16/18 at 14:00 Heparin Sodium (Porcine) (Heparin (1000 Units/ml)) 4,000 unit AFTER DIALYSIS CATHETER Last administered on 08/19/18 18:06; Admin Dose 4,000 UNIT; Start 08/16/18 at 12:30 Albumin Human 100 ml @ 100 mls/hr WITH DIALYSIS PRN IV SBP <90 DURING DIALYSIS; Start 08/16/18 at 12:30 Sodium Chloride (NS) -To prime the dialy... DIRECTED FOR HD PRN IV HD; Start 08/16/18 at 12:30 Nifedipine (Procardia Xl) 60 mg BID PO Last administered on 08/20/18 20:12; Admin Dose 60 MG; Start 08/16/18 at 21:00 Tobramycin Sulfate (Tobrex 0.3% Oph Drop) 1 drop Q6 LEFT EYE Last administered on 08/20/18 17:41; Admin Dose 1 DROP; Start 08/16/18 at 18:00; Stop 08/23/18 at 17:59 Famotidine (Pepcid) 20 mg QHS PO Last administered on 08/20/18 20:12; Admin Dose 20 MG; Start 08/17/18 at 21:00 Minoxidil (Loniten) 5 mg BID PO Last administered on 08/20/18at 20:12; Admin Dose 5 MG; Start 08/17/18 at 21:00 Acetaminophen (Tylenol Tab) 650 mg Q6H PRN PO MILD PAIN(1-3)OR ELEVATED TEMP Last administered on 08/18/18at 10:26; Admin Dose 650 MG; Start 08/18/18 at 10:30 Diagnostic Test (Pha) (Accu-Chek) 1 ea 02 XX Last administered on 08/19/18at 02:00; Admin Dose 1 EA; Start 08/19/18 at 02:00 Insulin Aspart (Novolog Insulin Pen) NOVOLOG *MILD* ALGORITHM WITH MEALS BEDTIME SC Last administered on 08/19/18at 18:14; Admin Dose 3 UNIT; Start 08/18/18 at 12:00 Miscellaneous Information 1 ea NOTE XX ; Start 08/18/18 at 10:30 Glucose (Glutose) 15 gm Q15M PRN PO DECREASED GLUCOSE; Start 08/18/18 at 10:30 Glucose (Glutose) 22.5 gm Q15M PRN PO DECREASED GLUCOSE; Start 08/18/18 at 10:30 Dextrose (D50w Syringe) 25 ml Q15M PRN IV DECREASED GLUCOSE; Start 08/18/18 at 10:30 Dextrose (D50w Syringe) 50 ml Q15M PRN IV DECREASED GLUCOSE; Start 08/18/18 at 10:30 Glucagon (Glucagen) 1 mg Q15M PRN IM DECREASED GLUCOSE; Start 08/18/18 at 10:30 Glucose (Glutose) 15 gm Q15M PRN BUCCAL DECREASED GLUCOSE; Start 08/18/18 at 10:30 ANTONY RAND M.D. Aug 20, 2018 22:44
[2018-08-21] VITALS (11 sets, daily range): BP systolic 151–206; BP diastolic 68–89; PULSE 53–71; RESP 18
[2018-08-21] MEDS: ACCU-CHEK XX SCH (02:00)
[2018-08-21] MEDS: INSULIN ASPART [NOVOLOG] 3 ML PEN SC SCH ×4 (07:42→21:00)
[2018-08-21] MEDS: NIFEdipine (XL) 60 MG TAB PO SCH ×2 (08:22→21:01)
[2018-08-21] MEDS: ISOSORBIDE MONONITRATE(SR)60 MG TAB PO SCH (08:23)
[2018-08-21] MEDS: MINOXIDIL 2.5 MG TAB PO SCH ×2 (08:23→21:01)
[2018-08-21] MEDS: LOSARTAN 50 MG TAB PO SCH (08:23)
[2018-08-21] MEDS: ATROPINE 1% 5 ML OPH BOTH EYES SCH ×2 (08:25→21:03)
--- NOTE | 2018-08-21 10:05 | CONS ---
Assessment/Plan Assessment/Plan Assessment/Plan (Daily) 1. acute hyperkalemia - resolved now 2. ESRD on HD MWF 3. accelerateD HTN - improving BP control 4. acute chest pain 5.type II DM with hyperglycemia 6. H/o HTN Plan: Nifedipine 60mg pO BID, S/p HD on Wednesday -3 L removed, pt regular schedule for HD is MWF - HD ordered for wednesday IV abx as per ID will follow up Consultation Date/Type/Reason Admit Date/Time Aug 16, 2018 at 00:15 Initial Consult Date 08/16/18 Type of Consult NEPHROLOGY Requesting Provider: HARMONY PETERSON MD Date/Time of Note DATE: 08/21/18 TIME: 10:05 Exam/Review of Systems Exam Vitals Vital Signs Date Temp Pulse Resp B/P (MAP) Pulse Ox O2 O2 Flow FiO2 Time Delivery Rate 08/21/18 71 08:11 08/21/18 97.9 18 151/68 100 Room Air 07:16 (95) Intake and Output 08/20/18 08/20/18 08/21/18 1515:00 23:00 07:00 IntakeIntake Total 300 ml 550 ml 240 ml BalanceBalance 300 ml 550 ml 240 ml Exam Constitutional: alert, awake, no acute distress Respiratory: clear to auscultation, normal air movement, diminished breath sounds Cardiovascular: regular rate and rhythm, nl pulses Gastrointestinal: soft, non-tender Musculoskeletal: muscle tone, swelling Extremities: normal pulses 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: 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 intact, nl mental status, nl speech, nl strength Lymph: nl lymph nodes Results Result Diagram: 08/20/1852308/20/18523 Results 24hrs Laboratory Tests Test 08/20/18 12:07 08/20/18 16:54 08/20/18 20:16 08/21/18 07:40 Bedside Glucose 110 131 155 90 Medications Medication Current Medications Dextrose (D50w Syringe) ONCE PRN IV DECREASED GLUCOSE Last administered on 08/15/18at 23:48; Admin Dose 50 ML; Start 08/15/18 at 23:00 Zolpidem Tartrate (Ambien) 5 mg HS PRN PO INSOMNIA Last administered on 08/20/18at 20:11; Admin Dose 5 MG; Start 08/16/18 at 02:30 Atropine Sulfate (Atropine 1% Oph) 1 drop BID BOTH EYES Last administered on 08/21/18 08:25; Admin Dose 1 DROP; Start 08/16/18 at 09:00 Losartan Potassium (Cozaar) 50 mg DAILY PO Last administered on 08/21/18 08:23; Admin Dose 50 MG; Start 08/16/18 at 09:00 Carvedilol (Coreg) 6.25 mg BID PO Last administered on 08/21/18 08:23; Admin Dose 6.25 MG; Start 08/16/18 at 09:00 Clonidine (Catapres) 0.1 mg Q4H PRN PO ELEVATED BLOOD PRESSURE Last administered on 08/21/18 00:30; Admin Dose 0.1 MG; Start 08/16/18 at 08:30 Isosorbide Mononitrate (Imdur) 60 mg DAILY PO Last administered on 08/21/18 08:23; Admin Dose 60 MG; Start 08/16/18 at 11:00 Heparin Sodium (Porcine) (Heparin (1000 Units/ml)) 4,000 unit AFTER DIALYSIS CATHETER Last administered on 08/19/18 18:06; Admin Dose 4,000 UNIT; Start 08/16/18 at 12:30 Albumin Human 100 ml @ 100 mls/hr WITH DIALYSIS PRN IV SBP <90 DURING DIALYSIS; Start 08/16/18 at 12:30 Sodium Chloride (NS) -To prime the dialy... DIRECTED FOR HD PRN IV HD; Start 08/16/18 at 12:30 Nifedipine (Procardia Xl) 60 mg BID PO Last administered on 08/21/18 08:22; Admin Dose 60 MG; Start 08/16/18 at 21:00 Famotidine (Pepcid) 20 mg QHS PO Last administered on 08/20/18 20:12; Admin Dose 20 MG; Start 08/17/18 at 21:00 Minoxidil (Loniten) 5 mg BID PO Last administered on 08/21/18 08:23; Admin Dose 5 MG; Start 08/17/18 at 21:00 Acetaminophen (Tylenol Tab) 650 mg Q6H PRN PO MILD PAIN(1-3)OR ELEVATED TEMP Last administered on 08/18/18 10:26; Admin Dose 650 MG; Start 08/18/18 at 10:30 Diagnostic Test (Pha) (Accu-Chek) 1 ea 02 XX Last administered on 08/19/18at 02:00; Admin Dose 1 EA; Start 08/19/18 at 02:00 Insulin Aspart (Novolog Insulin Pen) NOVOLOG *MILD* ALGORITHM WITH MEALS BED TIME SC Last administered on 08/19/18at 18:14; Admin Dose 3 UNIT; Start 08/18/18 at 12:00 Miscellaneous Information 1 ea NOTE XX ; Start 08/18/18 at 10:30 Glucose (Glutose) 15 gm Q15M PRN PO DECREASED GLUCOSE; Start 08/18/18 at 10:30 Glucose (Glutose) 22.5 gm Q15M PRN PO DECREASED GLUCOSE; Start 08/18/18 at 10:30 Dextrose (D50w Syringe) 25 ml Q15M PRN IV DECREASED GLUCOSE; Start 08/18/18 at 10:30 Dextrose (D50w Syringe) 50 ml Q15M PRN IV DECREASED GLUCOSE; Start 08/18/18 at 10:30 Glucagon (Glucagen) 1 mg Q15M PRN IM DECREASED GLUCOSE; Start 08/18/18 at 10:30 Glucose (Glutose) 15 gm Q15M PRN BUCCAL DECREASED GLUCOSE; Start 08/18/18 at 10:30 VALERIA RODRÍGUEZ MD Aug 21, 2018 10:05
--- NOTE | 2018-08-21 12:51 | PN ---
DATE: 08/21/2018 SUBJECTIVE: Follow up on current disease, hypertension, lung mass with negative biopsy, pneumonia. The patient denies any chest pain, breathing comfortably at rest, saturating in high 90s and at room air. Heart rate is in 50s and low 60s. Denies any dizziness, syncope. No history of abdominal pain. NO HISTORY OF ALLERGIES. No history of bleeding in the bleeding from any site. The patient is awake, alert. PHYSICAL EXAMINATION: VITAL SIGNS: Temperature 97.9, pulse 53, respirations 18, blood pressure 151/60, O2 saturation 100% room air. HEENT: No eye discharge or redness. The patient has an extensive left corneal opacity. Oropharynx clear. NECK: Supple, no thyromegaly, no carotid bruit. CHEST: Diminished air entry at bases. No use of accessory muscles. CARDIOVASCULAR: Regular rhythm. S1, S2 normal, no murmur. ABDOMEN: Soft and nontender. No palpable mass. EXTREMITIES: No edema, clubbing, or cyanosis. Pedal pulses palpable. NEUROLOGIC: The patient is awake, alert, fairly oriented with no gross focal deficit. SKIN: Without acute ulcer or rash. LABORATORY DATA: WBC 3.1, hemoglobin 11.7, platelet 119. Last glucose 90. Sodium 138, potassium 5.1, BUN 42, creatinine 7.2. IMPRESSION: 1. Lung mass and pathology came back as organizing pneumonia .The patient is being followed by Dr. Shine & pulmonoligist. The patient has extensive workup ordered including QuantiFERON TB, Gold cocci, etc. Once infectious disease gives clearance the patient will be started on steroids at 1 mg/kg per day for a slow taper over 6 months as recommended by the joiner apprentice. 2. Legal blindness. No acute issue. 3. Hypertension and bradycardia. The patient is on Minoxidil, nifedipine and nitrate and Cozaar in addition to Coreg. For now will reduce the dose of Coreg to 3.125 b.i.d. 4. End-stage renal disease. Continue hemodialysis as per Dr. Natalee Ortez. Medication list reviewed. The patient does have mild leukopenia and thrombocytopenia. HIV test is negative. Dictated By: HARMONY LOUIS/MAISHA Conf#: [id number] DID#: [id number] CC: ANTONY SHINE MD;*EndCC* MTDD
--- NOTE | 2018-08-21 14:12 | CONS ---
Consult Date/Type/Reason Admit Date/Time Aug 16, 2018 at 00:15 Initial Consult Date 08/17/18 Type of Consultation: Pulm Requesting Provider: HARMONY PETERSON MD Date/Time of Note DATE: 08/21/18 TIME: 14:11 Subjective No events overnight. Objective Vitals Vital Signs Date Temp Pulse Resp B/P (MAP) Pulse Ox O2 O2 Flow FiO2 Time Delivery Rate 08/21/18 54 12:30 08/21/18 97.7 18 161/70 97 Room Air 11:27 (100) Intake and Output 08/20/18 08/20/18 08/21/18 1515:00 23:00 07:00 IntakeIntake Total 300 ml 550 ml 240 ml BalanceBalance 300 ml 550 ml 240 ml Exam HEENT: Neck supple; no JVD; no LAD CVS: RRR, S1 and S2 CHEST: Clear ABD: Soft, NT, + BS EXT: No c/c/e Results/Medications Result Diagram: 08/20/1824 08/20/18523 Results 24 hrs Laboratory Tests Test 08/20/18 16:54 08/20/18 20:16 08/21/18 07:40 08/21/18 11:45 Bedside Glucose 131 155 90 162 Home Meds Reported Medications Nifedipine* (Nifedipine ER*) 90 Mg Tablet.er, 90 MG PO DAILY, TAB 08/15/18 Carvedilol* (Carvedilol*) 6.25 Mg Tablet, 6.25 MG PO BID, #60 TAB 08/15/18 Isosorbide Mononitrate* (Isosorbide Mononitrate*) 60 Mg Tab.er.24h, 60 MG PO DAILY, TAB 08/15/18 Losartan Potassium* (Losartan Potassium*) 50 Mg Tablet, 50 MG PO DAILY, TAB 08/15/18 Minoxidil* (Lonitin*) 2.5 Mg Tab, 2.5 MG PO BID, TAB 08/15/18 Famotidine* (Famotidine*) 20 Mg Tablet, 20 MG PO BID, #60 TAB 08/15/18 Atropine Sulfate/0.9 %Sod Chlr (Atropine 0.01%-Ns Eye Drops) 10 Ml Drops, 15 ML OP BID, BOTTLE 08/15/18 Tamsulosin Hcl* (Tamsulosin Hcl*) 0.4 Mg Cap.er.24h, 0.4 MG PO DAILY, CAP 08/15/18 Clonidine Hcl* (Clonidine Hcl*) 0.1 Mg Tab, 0.2 MG PO BID PRN for ELEVATED BLOOD PRESSURE, TAB 08/15/18 Sevelamer Carbonate* (Renvela*) 800 Mg Tablet, 0.8 GM PO WITH MEALS, TAB 08/15/18 Medications Current Medications Dextrose (D50w Syringe) ONCE PRN IV DECREASED GLUCOSE Last administered on 23:48; Admin Dose 50 ML; Start 08/15/18 at 23:00 Zolpidem Tartrate (Ambien) 5 mg HS PRN PO INSOMNIA Last administered on 08/20/18 20:11; Admin Dose 5 MG; Start 08/16/18 at 02:30 Atropine Sulfate (Atropine 1% Oph) 1 drop BID BOTH EYES Last administered on 08/21/18 08:25; Admin Dose 1 DROP; Start 08/16/18 at 09:00 Losartan Potassium (Cozaar) 50 mg DAILY PO Last administered on 08/21/18 08:23; Admin Dose 50 MG; Start 08/16/18 at 09:00 Clonidine (Catapres) 0.1 mg Q4H PRN PO ELEVATED BLOOD PRESSURE Last administered on 08/21/18 00:30; Admin Dose 0.1 MG; Start 08/16/18 at 08:30 Isosorbide Mononitrate (Imdur) 60 mg DAILY PO Last administered on 08/21/18 08:23; Admin Dose 60 MG; Start 08/16/18 at 11:00 Heparin Sodium (Porcine) (Heparin (1000 Units/ml)) 4,000 unit AFTER DIALYSIS CATHETER Last administered on 08/19/18 18:06; Admin Dose 4,000 UNIT; Start 08/16/18 at 12:30 Albumin Human 100 ml @ 100 mls/hr WITH DIALYSIS PRN IV SBP <90 DURING DIALYSIS; Start 08/16/18 at 12:30 Sodium Chloride (NS) -To prime the dialy... DIRECTED FOR HD PRN IV HD; Start 08/16/18 at 12:30 Nifedipine (Procardia Xl) 60 mg BID PO Last administered on 08/21/18 08:22; Admin Dose 60 MG; Start 08/16/18 at 21:00 Famotidine (Pepcid) 20 mg QHS PO Last administered on 08/20/18at 20:12; Admin Dose 20 MG; Start 08/17/18 at 21:00 Minoxidil (Loniten) 5 mg BID PO Last administered on 08/21/18at 08:23; Admin Dose 5 MG; Start 08/17/18 at 21:00 Acetaminophen (Tylenol Tab) 650 mg Q6H PRN PO MILD PAIN(1-3)OR ELEVATED TEMP Last administered on 08/18/18at 10:26; Admin Dose 650 MG; Start 08/18/18 at 10:30 Diagnostic Test (Pha) (Accu-Chek) 1 ea 02 XX Last administered on 08/19/18at 02:00; Admin Dose 1 EA; Start 08/19/18 at 02:00 Insulin Aspart (Novolog Insulin Pen) NOVOLOG *MILD* ALGORITHM WITH MEALS BEDTIME SC Last administered on 08/21/18at 12:05; Admin Dose 1 UNIT; Start 08/18/18 at 12:00 Miscellaneous Information 1 ea NOTE XX ; Start 08/18/18 at 10:30 Glucose (Glutose) 15 gm Q15M PRN PO DECREASED GLUCOSE; Start 08/18/18 at 10:30 Glucose (Glutose) 22.5 gm Q15M PRN PO DECREASED GLUCOSE; Start 08/18/18 at 10:30 Dextrose (D50w Syringe) 25 ml Q15M PRN IV DECREASED GLUCOSE; Start 08/18/18 at 10:30 Dextrose (D50w Syringe) 50 ml Q15M PRN IV DECREASED GLUCOSE; Start 08/18/18 at 10:30 Glucagon (Glucagen) 1 mg Q15M PRN IM DECREASED GLUCOSE; Start 08/18/18 at 10:30 Glucose (Glutose) 15 gm Q15M PRN BUCCAL DECREASED GLUCOSE; Start 08/18/18 at 10:30 Carvedilol (Coreg) 3.125 mg BID PO ; Start 08/21/18 at 21:00 Assessment/Plan Assessment/Plan (Daily) IMP: 1. RLL mass--with biopsy showing organizing organizing pneumonia (FAGOTER) RECS: 1. Will await ID clearance; once okay would initiate treatment with prednisone 0.75 to 1 mg/kg/day with a slow taper over 6 months. ELIAS ZUNIGA MD Aug 21, 2018 14:12
[2018-08-21] MEDS: ZOLPIDEM 5 MG TAB PO PRN (21:01)
[2018-08-21] MEDS: FAMOTIDINE 20 MG TAB PO SCH (21:02)
--- NOTE | 2018-08-21 22:30 | CONS ---
Assessment/Plan Assessment/Plan Hospital Course (Demo Recall) assessment - organizing pneumonia based on Bx on 08/17/2018. nodular density of RLL on CXR 08/15/2018, multiple nodular densities within RLL, a nodule in LLL on CT 08/16/2018. s/p CT guided Bx on 08/17/2018, no e/o malignancy - URI, possible sinusitis, otitis. CT sinus on 08/16/2018 showed paranasal sinus mucosal disease. Pt took pip/tazo (08/15/2018-08/20/2018) - L retro-orbital pain and L corneal opacity (plus eye discharge according to Pt's RN's note), possible keratitis, improved - b/l blindness - DM - CAD - h/o MA - h/o CABG - ESRD on HD - dirrhea recommendations - C diff test has been ordered, not collected yet - pending results: quantiferon TB old, coccidioides serology, tissue (fungal and AFB cultures), (Q TB gold negative, AFB smear of sputum was negative x3 and HIV test negative) - continue empiric PO vancomycin (08/21/2018-) management d/w Pt Consultation Date/Type/Reason Admit Date/Time Aug 16, 2018 at 00:15 Initial Consult Date 08/17/18 Type of Consult ID Requesting Provider: HARMONY PETERSON MD Date/Time of Note DATE: 08/21/18 TIME: 22:28 24 HR Interval Summary Constitutional: no complaints Detailed Summary Eyes: no complaints ENT: no complaints Respiratory: no complaints Cardiovascular: no complaints Gastrointestinal: diarrhea; No pain, No nausea, No vomiting Genitourinary: other (HD) Musculoskeletal: no complaints Skin: no complaints Exam/Review of Systems Exam Vitals Vital Signs Date Temp Pulse Resp B/P (MAP) Pulse Ox O2 O2 Flow FiO2 Time Delivery Rate 08/21/18 55 20:00 08/21/18 97.6 18 164/72 95 Room Air 15:58 (102) Intake and Output 08/20/18 08/20/18 08/21/18 1515:00 23:00 07:00 IntakeIntake Total 300 ml 550 ml 240 ml BalanceBalance 300 ml 550 ml 240 ml Constitutional: alert, oriented, well developed Psych: no complaints, nl mood/affect Head: normocephalic, atraumatic Eyes: other (L cloudy crnea) ENMT: nl external ears & nose, nl nasal mucosa & septum, other (ears and sinuses are non-TTP) Neck: supple, non-tender Respiratory: clear to auscultation, normal air movement Cardiovascular: regular rate and rhythm, nl pulses Gastrointestinal: soft, non-tender; No tender Musculoskeletal: nl extremities to inspection Extremities: No edema 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, nl mental status, nl speech, nl strength Skin: nl turgor; No rash or lesions Results Result Diagram: 08/20/1852308/20/18523 Results 24hrs Laboratory Tests Test 08/21/18 07:40 08/21/18 11:45 08/21/18 17:03 08/21/18 21:10 Bedside Glucose 90 162 118 159 Medications Medication Current Medications Dextrose (D50w Syringe) ONCE PRN IV DECREASED GLUCOSE Last administered on 08/15/18 23:48; Admin Dose 50 ML; Start 08/15/18 at 23:00 Zolpidem Tartrate (Ambien) 5 mg HS PRN PO INSOMNIA Last administered on 08/21/18 21:01; Admin Dose 5 MG; Start 08/16/18 at 02:30 Atropine Sulfate (Atropine 1% Oph) 1 drop BID BOTH EYES Last administered on 08/21/18 21:03; Admin Dose 1 DROP; Start 08/16/18 at 09:00 Losartan Potassium (Cozaar) 50 mg DAILY PO Last administered on 08/21/18 08:23; Admin Dose 50 MG; Start 08/16/18 at 09:00 Clonidine (Catapres) 0.1 mg Q4H PRN PO ELEVATED BLOOD PRESSURE Last administered on 08/21/18 21:01; Admin Dose 0.1 MG; Start 08/16/18 at 08:30 Isosorbide Mononitrate (Imdur) 60 mg DAILY PO Last administered on 08/21/18 08:23; Admin Dose 60 MG; Start 08/16/18 at 11:00 Heparin Sodium (Porcine) (Heparin (1000 Units/ml)) 4,000 unit AFTER DIALYSIS CATHETER Last administered on 08/19/18 18:06; Admin Dose 4,000 UNIT; Start 08/16/18 at 12:30 Albumin Human 100 ml @ 100 mls/hr WITH DIALYSIS PRN IV SBP <90 DURING DIALYSIS; Start 08/16/18 at 12:30 Sodium Chloride (NS) -To prime the dialy... DIRECTED FOR HD PRN IV HD; Start 08/16/18 at 12:30 Nifedipine (Procardia Xl) 60 mg BID PO Last administered on 08/21/18at 21:01; Admin Dose 60 MG; Start 08/16/18 at 21:00 Famotidine (Pepcid) 20 mg QHS PO Last administered on 08/21/18at 21:02; Admin Dose 20 MG; Start 08/17/18 at 21:00 Minoxidil (Loniten) 5 mg BID PO Last administered on 08/21/18at 21:01; Admin Dose 5 MG; Start 08/17/18 at 21:00 Acetaminophen (Tylenol Tab) 650 mg Q6H PRN PO MILD PAIN(1-3)OR ELEVATED TEMP Last administered on 08/18/18at 10:26; Admin Dose 650 MG; Start 08/18/18 at 10:30 Diagnostic Test (Pha) (Accu-Chek) 1 ea 02 XX Last administered on 08/19/18at 02:00; Admin Dose 1 EA; Start 08/19/18 at 02:00 Insulin Aspart (Novolog Insulin Pen) NOVOLOG *MILD* ALGORITHM WITH MEALS BEDTIME SC Last administered on 08/21/18at 12:05; Admin Dose 1 UNIT; Start 08/18/18 at 12:00 Miscellaneous Information 1 ea NOTE XX ; Start 08/18/18 at 10:30 Glucose (Glutose) 15 gm Q15M PRN PO DECREASED GLUCOSE; Start 08/18/18 at 10:30 Glucose (Glutose) 22.5 gm Q15M PRN PO DECREASED GLUCOSE; Start 08/18/18 at 10:30 Dextrose (D50w Syringe) 25 ml Q15M PRN IV DECREASED GLUCOSE; Start 08/18/18 at 10:30 Dextrose (D50w Syringe) 50 ml Q15M PRN IV DECREASED GLUCOSE; Start 08/18/18 at 10:30 Glucagon (Glucagen) 1 mg Q15M PRN IM DECREASED GLUCOSE; Start 08/18/18 at 10:30 Glucose (Glutose) 15 gm Q15M PRN BUCCAL DECREASED GLUCOSE; Start 08/18/18 at 10:30 Carvedilol (Coreg) 3.125 mg BID PO ; Start 08/21/18 at 21:00 Vancomycin HCl (Vancomycin Oral Syringe) 250 mg Q6 PO ; Start 08/22/18 at 00:00 ANTONY RAND M.D. Aug 21, 2018 22:30
[2018-08-22] VITALS (26 sets, daily range): BP systolic 120–212; BP diastolic 59–98; PULSE 51–63; RESP 17–20
[2018-08-22] MEDS: ACCU-CHEK XX SCH (00:31)
[2018-08-22] MEDS: VANCOMYCIN HCL 250 MG/5ML POSYG PO SCH ×5 (00:31→23:35)
[2018-08-22] MEDS: INSULIN ASPART [NOVOLOG] 3 ML PEN SC SCH ×4 (07:52→21:32)
[2018-08-22] MEDS ORDERED: hydrOXYzine HCL 25 MG TAB PO PRN (10:00)
[2018-08-22] MEDS: ATROPINE 1% 5 ML OPH BOTH EYES SCH ×2 (10:36→21:17)
--- NOTE | 2018-08-22 10:47 | CONS ---
Assessment/Plan Assessment/Plan Assessment/Plan (Daily) Assessment recommendations; 1. Patient with history of chronic renal failure on hemodialysis admitted with shortness of breath likely due to committee acquired pneumonia with right lower lobe lung mass/nodule status post biopsy showing organizing pneumonia. 2. Chronic anemia and thrombocytopenia. Continue current supportive care. Awaiting serology for coccidiodomycosis. Consultation Date/Type/Reason Admit Date/Time Aug 16, 2018 at 00:15 Initial Consult Date 08/17/18 Type of Consult Pulmonary Patient's condition is stable. Denies any shortness of breath, coughing, chest pain, any sputum production or wheezing. General exam; middle-aged male, getting hemodialysis at bedside. Currently no distress. Reason for Consultation HEENT exam; supple neck, no JVD. No lymphadenopathy. Midline trachea. No thyromegaly. No neck masses. Patient has fair dentition. Chest exam; diminished but clear breath sounds. S1-S2 audible, no murmurs. Regular rhythm. Abdomen exam; soft, no organomegaly. Bowel sounds audible. Nontender. Extremity exam; no peripheral edema or clubbing. 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 Requesting Provider: HARMONY PETERSON MD Date/Time of Note DATE: 08/22/18 TIME: 10:45 Exam/Review of Systems Exam Vitals Vital Signs Date Temp Pulse Resp B/P (MAP) Pulse Ox O2 O2 Flow FiO2 Time Delivery Rate 08/22/18 57 10:15 08/22/18 17 120/59 97 Room Air 09:48 (79) 08/22/18 97.9 07:17 Intake and Output 08/21/18 08/21/18 08/22/18 1515:00 23:00 07:00 IntakeIntake Total 450 ml 240 ml BalanceBalance 450 ml 240 ml Results Result Diagram: 08/20/18 0524 08/20/18 0524 Results 24hrs Laboratory Tests Test 08/21/18 11:45 08/21/18 17:03 08/21/18 21:10 08/22/18 07:51 Bedside Glucose 162 118 159 81 Medications Medication Current Medications Dextrose (D50w Syringe) ONCE PRN IV DECREASED GLUCOSE Last administered on 08/15/18at 23:48; Admin Dose 50 ML; Start 08/15/18 at 23:00 Zolpidem Tartrate (Ambien) 5 mg HS PRN PO INSOMNIA Last administered on 08/21/18 21:01; Admin Dose 5 MG; Start 08/16/18 at 02:30 Atropine Sulfate (Atropine 1% Oph) 1 drop BID BOTH EYES Last administered on 08/22/18 10:36; Admin Dose 1 DROP; Start 08/16/18 at 09:00 Losartan Potassium (Cozaar) 50 mg DAILY PO Last administered on 08/21/18 08:23; Admin Dose 50 MG; Start 08/16/18 at 09:00 Clonidine (Catapres) 0.1 mg Q4H PRN PO ELEVATED BLOOD PRESSURE Last administered on 08/22/18 00:49; Admin Dose 0.1 MG; Start 08/16/18 at 08:30 Isosorbide Mononitrate (Imdur) 60 mg DAILY PO Last administered on 08/21/18 08:23; Admin Dose 60 MG; Start 08/16/18 at 11:00 Heparin Sodium (Porcine) (Heparin (1000 Units/ml)) 4,000 unit AFTER DIALYSIS CA THETER Last administered on 08/19/18 18:06; Admin Dose 4,000 UNIT; Start 08/16/18 at 12:30 Albumin Human 100 ml @ 100 mls/hr WITH DIALYSIS PRN IV SBP <90 DURING DIALYSIS; Start 08/16/18 at 12:30 Sodium Chloride (NS) -To prime the dialy... DIRECTED FOR HD PRN IV HD; Start 08/16/18 at 12:30 Nifedipine (Procardia Xl) 60 mg BID PO Last administered on 08/21/18 21:01; Admin Dose 60 MG; Start 08/16/18 at 21:00 Famotidine (Pepcid) 20 mg QHS PO Last administered on 08/21/18 21:02; Admin Dose 20 MG; Start 08/17/18 at 21:00 Minoxidil (Loniten) 5 mg BID PO Last administered on 08/21/18 21:01; Admin Dose 5 MG; Start 08/17/18 at 21:00 Acetaminophen (Tylenol Tab) 650 mg Q6H PRN PO MILD PAIN(1-3)OR ELEVATED TEMP Last administered on 08/18/18 10:26; Admin Dose 650 MG; Start 08/18/18 at 10:30 Diagnostic Test (Pha) (Accu-Chek) 1 ea 02 XX Last administered on 08/19/18at 02:00; Admin Dose 1 EA; Start 08/19/18 at 02:00 Insulin Aspart (Novolog Insulin Pen) NOVOLOG *MILD* ALGORITHM WITH MEALS BEDTI ME SC Last administered on 08/21/18at 12:05; Admin Dose 1 UNIT; Start 08/18/18 at 12:00 Miscellaneous Information 1 ea NOTE XX ; Start 08/18/18 at 10:30 Glucose (Glutose) 15 gm Q15M PRN PO DECREASED GLUCOSE; Start 08/18/18 at 10:30 Glucose (Glutose) 22.5 gm Q15M PRN PO DECREASED GLUCOSE; Start 08/18/18 at 10:30 Dextrose (D50w Syringe) 25 ml Q15M PRN IV DECREASED GLUCOSE; Start 08/18/18 at 10:30 Dextrose (D50w Syringe) 50 ml Q15M PRN IV DECREASED GLUCOSE; Start 08/18/18 at 10:30 Glucagon (Glucagen) 1 mg Q15M PRN IM DECREASED GLUCOSE; Start 08/18/18 at 10:30 Glucose (Glutose) 15 gm Q15M PRN BUCCAL DECREASED GLUCOSE; Start 08/18/18 at 10:30 Carvedilol (Coreg) 3.125 mg BID PO ; Start 08/21/18 at 21:00 Vancomycin HCl (Vancomycin Oral Syringe) 250 mg Q6 PO Last administered on 08/22/18at 06:09; Admin Dose 250 MG; Start 08/22/18 at 00:00 Hydroxyzine HCl (Atarax) 25 mg Q6H PRN PO ITCHING Last administered on 08/22/18at 10:36; Admin Dose 25 MG; Start 08/22/18 at 10:00 JANES DOMINGO Aug 22, 2018 10:46
--- NOTE | 2018-08-22 11:11 | CONS ---
Assessment/Plan Assessment/Plan Hospital Course (Demo Recall) #Multiple lung mass in RLL -CT guided bx reveals evidence of pneumonia #Pneumonia - pending results: quantiferon TB old, coccidioides serology, tissue (fungal and AFB cultures), (Q TB gold negative, AFB smear of sputum was negative x3 and HIV test negative) - continue empiric PO vancomycin (08/21/2018-) #ESRD -continue HD per renal #HTN -continue BP meds Thank you for the opportunity to participate in this patients care A total of 40 minutes of face to face time was spent speaking with the patient, of which greater than 50% was spent in counseling and coordination of care and the detailed question and answer session. Consultation Date/Type/Reason Admit Date/Time Aug 16, 2018 at 00:15 Initial Consult Date 08/17/18 Type of Consult oncology Reason for Consultation lung mass Requesting Provider: HARMONY PETERSON MD Date/Time of Note DATE: 08/22/18 TIME: 11:10 24 HR Interval Summary Free Text/Dictation no acute overnight events. patient continues on IV antibiotics Exam/Review of Systems Exam Vitals Vital Signs Date Temp Pulse Resp B/P (MAP) Pulse Ox O2 O2 Flow FiO2 Time Delivery Rate 08/22/18 57 10:15 08/22/18 17 120/59 97 Room Air 09:48 (79) 08/22/18 97.9 07:17 Intake and Output 08/21/18 08/21/18 08/22/18 1515:00 23:00 07:00 IntakeIntake Total 450 ml 240 ml BalanceBalance 450 ml 240 ml Constitutional: alert, oriented Psych: no complaints Head: normocephalic Eyes: nl conjunctiva ENMT: nl external ears & nose Neck: supple Respiratory: clear to auscultation Cardiovascular: regular rate and rhythm Gastrointestinal: soft Musculoskeletal: nl extremities to inspection Extremities: normal pulses Results Result Diagram: 08/20/1852308/20/18523 Results 24hrs Laboratory Tests Test 08/21/18 11:45 08/21/18 17:03 08/21/18 21:10 08/22/18 07:51 Bedside Glucose 162 118 159 81 Medications Medication Current Medications Dextrose (D50w Syringe) ONCE PRN IV DECREASED GLUCOSE Last administered on 08/15/18at 23:48; Admin Dose 50 ML; Start 08/15/18 at 23:00 Zolpidem Tartrate (Ambien) 5 mg HS PRN PO INSOMNIA Last administered on 21:01; Admin Dose 5 MG; Start 08/16/18 at 02:30 Atropine Sulfate (Atropine 1% Oph) 1 drop BID BOTH EYES Last administered on 08/22/18 10:36; Admin Dose 1 DROP; Start 08/16/18 at 09:00 Losartan Potassium (Cozaar) 50 mg DAILY PO Last administered on 08/21/18 08:23; Admin Dose 50 MG; Start 08/16/18 at 09:00 Clonidine (Catapres) 0.1 mg Q4H PRN PO ELEVATED BLOOD PRESSURE Last administered on 08/22/18 00:49; Admin Dose 0.1 MG; Start 08/16/18 at 08:30 Isosorbide Mononitrate (Imdur) 60 mg DAILY PO Last administered on 08/21/18 08:23; Admin Dose 60 MG; Start 08/16/18 at 11:00 Heparin Sodium (Porcine) (Heparin (1000 Units/ml)) 4,000 unit AFTER DIALYSIS CATHETER Last administered on 08/19/18 18:06; Admin Dose 4,000 UNIT; Start 08/16/18 at 12:30 Albumin Human 100 ml @ 100 mls/hr WITH DIALYSIS PRN IV SBP <90 DURING DIALYSIS; Start 08/16/18 at 12:30 Sodium Chloride (NS) -To prime the dialy... DIRECTED FOR HD PRN IV HD; Start 08/16/18 at 12:30 Nifedipine (Procardia Xl) 60 mg BID PO Last administered on 08/21/18 21:01; Admin Dose 60 MG; Start 08/16/18 at 21:00 Famotidine (Pepcid) 20 mg QHS PO Last administered on 08/21/18 21:02; Admin Dose 20 MG; Start 08/17/18 at 21:00 Minoxidil (Loniten) 5 mg BID PO Last administered on 08/21/18 21:01; Admin Dose 5 MG; Start 08/17/18 at 21:00 Acetaminophen (Tylenol Tab) 650 mg Q6H PRN PO MILD PAIN(1-3)OR ELEVATED TEMP Last administered on 2/28/19at 10:26; Admin Dose 650 MG; Start 08/18/18 at 10:30 Diagnostic Test (Pha) (Accu-Chek) 1 ea 02 XX Last administered on 08/19/18at 02:00; Admin Dose 1 EA; Start 08/19/18 at 02:00 Insulin Aspart (Novolog Insulin Pen) NOVOLOG *MILD* ALGORITHM WITH MEALS BEDTIME SC Last administered on 08/21/18at 12:05; Admin Dose 1 UNIT; Start 08/18/18 at 12:00 Miscellaneous Information 1 ea NOTE XX ; Start 08/18/18 at 10:30 Glucose (Glutose) 15 gm Q15M PRN PO DECREASED GLUCOSE; Start 08/18/18 at 10:30 Glucose (Glutose) 22.5 gm Q15M PRN PO DECREASED GLUCOSE; Start 08/18/18 at 10:30 Dextrose (D50w Syringe) 25 ml Q15M PRN IV DECREASED GLUCOSE; Start 08/18/18 at 10:30 Dextrose (D50w Syringe) 50 ml Q15M PRN IV DECREASED GLUCOSE; Start 08/18/18 at 10:30 Glucagon (Glucagen) 1 mg Q15M PRN IM DECREASED GLUCOSE; Start 08/18/18 at 10:30 Glucose (Glutose) 15 gm Q15M PRN BUCCAL DECREASED GLUCOSE; Start 08/18/18 at 10:30 Carvedilol (Coreg) 3.125 mg BID PO ; Start 08/21/18 at 21:00 Vancomycin HCl (Vancomycin Oral Syringe) 250 mg Q6 PO Last administered on 08/22/18at 06:09; Admin Dose 250 MG; Start 08/22/18 at 00:00 Hydroxyzine HCl (Atarax) 25 mg Q6H PRN PO ITCHING Last administered on 08/22/18at 10:36; Admin Dose 25 MG; Start 08/22/18 at 10:00 AMAYA MONDRAGON M.D. Aug 22, 2018 11:11
--- NOTE | 2018-08-22 11:48 | CONS ---
Assessment/Plan Assessment/Plan Assessment/Plan (Daily) 1. acute hyperkalemia - resolved now 2. ESRD on HD MWF 3. accelerateD HTN - improving BP control 4. acute chest pain 5.type II DM with hyperglycemia 6. H/o HTN Plan: Nifedipine 60mg pO BID, S/p HD today- 2.5 L removed, pt regular schedule for HD is MWF IV abx as per ID will follow up Consultation Date/Type/Reason Admit Date/Time Aug 16, 2018 at 00:15 Initial Consult Date 08/16/18 Type of Consult NEPHROLOGY Requesting Provider: HARMONY PETERSON MD Date/Time of Note DATE: 08/22/18 TIME: 11:48 24 HR Interval Summary Free Text/Dictation plan for HD today, BP stable, afebrile Exam/Review of Systems Exam Vitals Vital Signs Date Temp Pulse Resp B/P (MAP) Pulse Ox O2 O2 Flow FiO2 Time Delivery Rate 08/22/18 58 11:30 08/22/18 17 120/59 97 Room Air 09:48 (79) 08/22/18 97.9 07:17 Intake and Output 08/21/18 08/21/18 08/22/18 1515:00 23:00 07:00 IntakeIntake Total 450 ml 240 ml BalanceBalance 450 ml 240 ml Results Result Diagram: 08/20/1852308/20/18523 Results 24hrs Laboratory Tests Test 08/21/18 17:03 08/21/18 21:10 08/22/18 07:51 08/22/18 11:25 Bedside Glucose 118 159 81 111 Medications Medication Current Medications Dextrose (D50w Syringe) ONCE PRN IV DECREASED GLUCOSE Last administered on 08/15/18at 23:48; Admin Dose 50 ML; Start 08/15/18 at 23:00 Zolpidem Tartrate (Ambien) 5 mg HS PRN PO INSOMNIA Last administered on 08/21/18 21:01; Admin Dose 5 MG; Start 08/16/18 at 02:30 Atropine Sulfate (Atropine 1% Oph) 1 drop BID BOTH EYES Last administered on 08/22/18 10:36; Admin Dose 1 DROP; Start 08/16/18 at 09:00 Losartan Potassium (Cozaar) 50 mg DAILY PO Last administered on 08/21/18 08:23; Admin Dose 50 MG; Start 08/16/18 at 09:00 Clonidine (Catapres) 0.1 mg Q4H PRN PO ELEVATED BLOOD PRESSURE Last administered on 08/22/18 00:49; Admin Dose 0.1 MG; Start 08/16/18 at 08:30 Isosorbide Mononitrate (Imdur) 60 mg DAILY PO Last administered on 08/21/18 08:23; Admin Dose 60 MG; Start 08/16/18 at 11:00 Heparin Sodium (Porcine) (Heparin (1000 Units/ml)) 4,000 unit AFTER DIALYSIS CATHETER Last administered on 08/19/18 18:06; Admin Dose 4,000 UNIT; Start at 12:30 Albumin Human 100 ml @ 100 mls/hr WITH DIALYSIS PRN IV SBP <90 DURING DIALYSIS; Start 08/16/18 at 12:30 Sodium Chloride (NS) -To prime the dialy... DIRECTED FOR HD PRN IV HD; Start 08/16/18 at 12:30 Nifedipine (Procardia Xl) 60 mg BID PO Last administered on 08/21/18 21:01; Adm in Dose 60 MG; Start 08/16/18 at 21:00 Famotidine (Pepcid) 20 mg QHS PO Last administered on 08/21/18 21:02; Admin Dose 20 MG; Start 08/17/18 at 21:00 Minoxidil (Loniten) 5 mg BID PO Last administered on 08/21/18 21:01; Admin Dose 5 MG; Start 08/17/18 at 21:00 Acetaminophen (Tylenol Tab) 650 mg Q6H PRN PO MILD PAIN(1-3)OR ELEVATED TEMP Last administered on 08/18/18 10:26; Admin Dose 650 MG; Start 08/18/18 at 10:30 Diagnostic Test (Pha) (Accu-Chek) 1 ea 02 XX Last administered on 08/19/18 02 :00; Admin Dose 1 EA; Start 08/19/18 at 02:00 Insulin Aspart (Novolog Insulin Pen) NOVOLOG *MILD* ALGORITHM WITH MEALS BEDTIME SC Last administered on 08/21/18 12:05; Admin Dose 1 UNIT; Start 08/18/18 at 12:00 Miscellaneous Information 1 ea NOTE XX ; Start 08/18/18 at 10:30 Glucose (Glutose) 15 gm Q15M PRN PO DECREASED GLUCOSE; Start 08/18/18 at 10:30 Glucose (Glutose) 22.5 gm Q15M PRN PO DECREASED GLUCOSE; Start 08/18/18 at 10:30 Dextrose (D50w Syringe) 25 ml Q15M PRN IV DECREASED GLUCOSE; Start 08/18/18 at 10:30 Dextrose (D50w Syringe) 50 ml Q15M PRN IV DECREASED GLUCOSE; Start 08/18/18 at 10:30 Glucagon (Glucagen) 1 mg Q15M PRN IM DECREASED GLUCOSE; Start 08/18/18 at 10:30 Glucose (Glutose) 15 gm Q15M PRN BUCCAL DECREASED GLUCOSE; Start 08/18/18 at 10:30 Carvedilol (Coreg) 3.125 mg BID PO ; Start 08/21/18 at 21:00 Vancomycin HCl (Vancomycin Oral Syringe) 250 mg Q6 PO Last administered on 08/22/18at 06:09; Admin Dose 250 MG; Start 08/22/18 at 00:00 Hydroxyzine HCl (Atarax) 25 mg Q6H PRN PO ITCHING Last administered on 08/22/18at 10:36; Admin Dose 25 MG; Start 08/22/18 at 10:00 VALERIA RODRÍGUEZ MD Aug 22, 2018 11:48
[2018-08-22] MEDS: HEPARIN 1000 UNITS/ML 10 ML INJ CATHETER SCH (12:20)
[2018-08-22] MEDS: LOSARTAN 50 MG TAB PO SCH (14:17)
[2018-08-22] MEDS: ISOSORBIDE MONONITRATE(SR)60 MG TAB PO SCH (14:17)
[2018-08-22] MEDS: MINOXIDIL 2.5 MG TAB PO SCH ×2 (14:18→21:20)
[2018-08-22] MEDS: NIFEdipine (XL) 60 MG TAB PO SCH ×2 (14:18→21:20)
--- NOTE | 2018-08-22 15:44 | CONS ---
Consult Date/Type/Reason Admit Date/Time Aug 16, 2018 at 00:15 Initial Consult Date 08/16/18 Type of Consultation: CV Requesting Provider: HARMONY PETERSON MD Date/Time of Note DATE: 08/22/18 TIME: 15:43 Subjective Cardiology follow-up progress note Subjective: Discussed with the staff telemetry was reviewed patient with normal sinus rhythm/sinus bradycardia Patient with no chest pain or pressure. HE has any bleeding to me His cough appears to be improving as well Objective: General: no acute distress HEENT: NC/AT. . NECK: NO JVD. no stridor. CV: RRR. systolic murmur; no gallop or rubs. PULM: no wheezing or rhonchi. GI: SOFT, NT, ND, no rebound or guarding Extremity: trace B/L LE edema. no clubbing. neuro: awake and alert, OX3. Psych: calm and pleasant rectal: deferred : normal EKG was personally within normal sinus rhythm nonspecific ST abnormalities Chest x-ray shows: Mild cardiomegaly. Mild pulmonary vascular congestion. Calcified aorta consistent with atherosclerotic disease. 3.8 cm right lower lobe nodular opacity. Follow-up CT chest is recommended. Echocardiogram done 08/16/2018 shows: Normal left ventricular systolic function. Normal left ventricular cavity size. Ejection fraction is visually estimated at 60 %. Tissue Doppler/Mitral Doppler indices are consistent with impaired relaxation (Stage I diastolic dysfunction). Mild mitral leaflet calcification. Mild mitral annular calcification. Mild mitral valve regurgitation. No significant aortic stenosis or insufficiency. Aortic cusps appear mildly calcified. Normal appearance of the tricuspid valve. Estimated peak PA systolic pressure 36 mmHg. There is mild tricuspid regurgitation. CT of the chest on 08/13/2018 shows: Multiple nodular densities are seen within the right lower lobe and this corresponds to the abnormality on prior chest radiograph. There is also a nodule in the left lower lobe. These could represent infectious nodular opacities or could represent neoplastic lesions. This can be correlated with clinical findings and biopsy may be considered as clinically warranted. Follow-up CT is recommended after 3 months. Renal atrophy is present with mild cardiomegaly and faint pulmonary edema. Atherosclerotic disease is present. There is a fecal filled colon with diverticulosis. Objective Vitals Vital Signs Date Temp Pulse Resp B/P (MAP) Pulse Ox O2 O2 Flow FiO2 Time Delivery Rate 08/22/18 98.3 60 20 165/74 93 15:07 (104) 08/22/18 Room Air 12:25 Intake and Output 08/21/18 08/21/18 08/22/18 1515:00 23:00 07:00 IntakeIntake Total 450 ml 240 ml BalanceBalance 450 ml 240 ml Results/Medications Result Diagram: 08/20/18 0524 08/20/18 0524 Results 24 hrs Laboratory Tests Test 08/21/18 17:03 08/21/18 21:10 08/22/18 07:51 08/22/18 11:25 Bedside Glucose 118 159 81 111 Home Meds Reported Medications Nifedipine* (Nifedipine ER*) 90 Mg Tablet.er, 90 MG PO DAILY, TAB 08/15/18 Carvedilol* (Carvedilol*) 6.25 Mg Tablet, 6.25 MG PO BID, #60 TAB 08/15/18 Isosorbide Mononitrate* (Isosorbide Mononitrate*) 60 Mg Tab.er.24h, 60 MG PO DAILY, TAB 08/15/18 Losartan Potassium* (Losartan Potassium*) 50 Mg Tablet, 50 MG PO DAILY, TAB 08/15/18 Minoxidil* (Lonitin*) 2.5 Mg Tab, 2.5 MG PO BID, TAB 08/15/18 Famotidine* (Famotidine*) 20 Mg Tablet, 20 MG PO BID, #60 TAB 08/15/18 Atropine Sulfate/0.9 %Sod Chlr (Atropine 0.01%-Ns Eye Drops) 10 Ml Drops, 15 ML OP BID, BOTTLE 08/15/18 Tamsulosin Hcl* (Tamsulosin Hcl*) 0.4 Mg Cap.er.24h, 0.4 MG PO DAILY, CAP 08/15/18 Clonidine Hcl* (Clonidine Hcl*) 0.1 Mg Tab, 0.2 MG PO BID PRN for ELEVATED BLOOD PRESSURE, TAB 08/15/18 Sevelamer Carbonate* (Renvela*) 800 Mg Tablet, 0.8 GM PO WITH MEALS, TAB 08/15/18 Medications Current Medications Dextrose (D50w Syringe) ONCE PRN IV DECREASED GLUCOSE Last administered on 08/15/18at 23:48; Admin Dose 50 ML; Start 08/15/18 at 23:00 Zolpidem Tartrate (Ambien) 5 mg HS PRN PO INSOMNIA Last administered on 08/21/18 21:01; Admin Dose 5 MG; Start 08/16/18 at 02:30 Atropine Sulfate (Atropine 1% Oph) 1 drop BID BOTH EYES Last administered on 08/22/18 10:36; Admin Dose 1 DROP; Start 08/16/18 at 09:00 Losartan Potassium (Cozaar) 50 mg DAILY PO Last administered on 08/22/18 14:17; Admin Dose 50 MG; Start 08/16/18 at 09:00 Clonidine (Catapres) 0.1 mg Q4H PRN PO ELEVATED BLOOD PRESSURE Last administered on 08/22/18 00:49; Admin Dose 0.1 MG; Start 08/16/18 at 08:30 Isosorbide Mononitrate (Imdur) 60 mg DAILY PO Last administered on 08/22/18 14:17; Admin Dose 60 MG; Start 08/16/18 at 11:00 Heparin Sodium (Porcine) (Heparin (1000 Units/ml)) 4,000 unit AFTER DIALYSIS CATHETER Last administered on 08/22/18 12:20; Admin Dose 4,000 UNIT; Start 08/16/18 at 12:30 Albumin Human 100 ml @ 100 mls/hr WITH DIALYSIS PRN IV SBP <90 DURING DIALYSIS; Start 08/16/18 at 12:30 Sodium Chloride (NS) -To prime the dialy... DIRECTED FOR HD PRN IV HD; Start 08/16/18 at 12:30 Nifedipine (Procardia Xl) 60 mg BID PO Last administered on 08/22/18 14:18; Admin Dose 60 MG; Start 08/16/18 at 21:00 Famotidine (Pepcid) 20 mg QHS PO Last administered on 08/21/18 21:02; Admin Dose 20 MG; Start 08/17/18 at 21:00 Minoxidil (Loniten) 5 mg BID PO Last administered on 08/22/18 14:18; Admin Dose 5 MG; Start 08/17/18 at 21:00 Acetaminophen (Tylenol Tab) 650 mg Q6H PRN PO MILD PAIN(1-3)OR ELEVATED TEMP Last administered on 08/18/18 10:26; Admin Dose 650 MG; Start 08/18/18 at 10:30 Diagnostic Test (Pha) (Accu-Chek) 1 ea 02 XX Last administered on 08/19/18at 02:00; Admin Dose 1 EA; Start 08/19/18 at 02:00 Insulin Aspart (Novolog Insulin Pen) NOVOLOG *MILD* ALGORITHM WITH MEALS BEDTIME SC Last administered on 08/21/18at 12:05; Admin Dose 1 UNIT; Start 08/18/18 at 12:00 Miscellaneous Information 1 ea NOTE XX ; Start 08/18/18 at 10:30 Glucose (Glutose) 15 gm Q15M PRN PO DECREASED GLUCOSE; Start 08/18/18 at 10:30 Glucose (Glutose) 22.5 gm Q15M PRN PO DECREASED GLUCOSE; Start 08/18/18 at 10:30 Dextrose (D50w Syringe) 25 ml Q15M PRN IV DECREASED GLUCOSE; Start 08/18/18 at 10:30 Dextrose (D50w Syringe) 50 ml Q15M PRN IV DECREASED GLUCOSE; Start 08/18/18 at 10:30 Glucagon (Glucagen) 1 mg Q15M PRN IM DECREASED GLUCOSE; Start 08/18/18 at 10:30 Glucose (Glutose) 15 gm Q15M PRN BUCCAL DECREASED GLUCOSE; Start 08/18/18 at 10:30 Carvedilol (Coreg) 3.125 mg BID PO Last administered on 08/22/18at 14:17; Admin Dose 3.125 MG; Start 08/21/18 at 21:00 Vancomycin HCl (Vancomycin Oral Syringe) 250 mg Q6 PO Last administered on 08/22/18at 14:16; Admin Dose 250 MG; Start 08/22/18 at 00:00 Hydroxyzine HCl (Atarax) 25 mg Q6H PRN PO ITCHING Last administered on 08/22/18at 10:36; Admin Dose 25 MG; Start 08/22/18 at 10:00 Assessment/Plan Hospital Course (Demo Recall) 1. Hypertensive urgency/resistant hypertension 2. History of coronary artery disease 3. History of most likely [place] and coronary artery bypass graft 4. Renal failure on dialysis 5. Pulmonary vascular congestion/fluid overload 6. Diabetes 7. Dyslipidemia 8. Hyperkalemia 9. Pulmonary nodule Recommendations: Continue with the Procardia. Will change the Coreg to labetalol given his bradycardia and adjust the dose as needed Continue with minoxidil now at 5 bid Continue with losartan as long as okay with renal and hyperkalemia Clonidine will be continued as a as needed as well. Lipid panel reviewed and showed LDL at goal of less than 70 Hemodialysis as per renal follow up with pulmonary recommendations Thank you for his referral. We will continue to follow along with you NAHUN RUSSELL MD [facility] NAHUN RUSSELL MD Aug 22, 2018 15:44
--- NOTE | 2018-08-22 17:55 | PN ---
Date/Time of Note Date/Time of Note DATE: 08/22/18 TIME: 17:55 Assessment/Plan VTE Prophylaxis Risk score (from Nsg)>0 risk: 3 SCD applied (from Nsg): Yes Pharmacological prophylaxis: heparin Lines/Catheters IV Catheter Type (from Nrsg): Saline Lock Urinary Cath still in place: No Assessment/Plan Hospital Course Patient is status post hemodialysis today, remains afebrile, hemodynamically stable. Assessment/Plan - LLL mass, s/p biopsy, pathology revealed organizing pneumonia with foci of acute inflammation. Continue antibiotics for per ID. The patient is being followed by Dr. Shine. The patient has extensive workup ordered including QuantiFERON TB, Gold cocci, etc. Once infectious disease gives clearance the patient will be started on steroids at 1 mg/kg per day for a slow taper over 6 months as recommended by the psych specialist. - HTN - DM - CAD, Hx of CABG - ESRD on HD - Legal blindness. No acute issue. Further recommendations based on clinical course. Plan of care discussed with Dr. Reagan. Result Diagram: 08/20/1852308/20/18523 Results 24hrs Laboratory Tests Test 08/21/18 21:10 08/22/18 07:51 08/22/18 11:25 08/22/18 17:23 Bedside Glucose 159 81 111 165 Exam/Review of Systems Exam Vitals Vital Signs Date Temp Pulse Resp B/P (MAP) Pulse Ox O2 O2 Flow FiO2 Time Delivery Rate 08/22/18 58 16:01 08/22/18 98.3 20 165/74 93 15:07 (104) 08/22/18 Room Air 12:25 Intake and Output 08/21/18 08/21/18 08/22/18 1414:59 22:59 06:59 IntakeIntake Total 450 ml 240 ml BalanceBalance 450 ml 240 ml Constitutional: alert, oriented Neck: supple Respiratory: diminished breath sounds Cardiovascular: regular rate and rhythm Gastrointestinal: soft, non-tender Musculoskeletal: nl extremities to inspection Extremities: normal pulses Results Results 24hrs Laboratory Tests Test 08/21/18 21:10 08/22/18 07:51 08/22/18 11:25 08/22/18 17:23 Bedside Glucose 159 81 111 165 Medications Medication Current Medications Dextrose (D50w Syringe) ONCE PRN IV DECREASED GLUCOSE Last administered on 08/15/18 23:48; Admin Dose 50 ML; Start 08/15/18 at 23:00 Zolpidem Tartrate (Ambien) 5 mg HS PRN PO INSOMNIA Last administered on 08/21/18 21:01; Admin Dose 5 MG; Start 08/16/18 at 02:30 Atropine Sulfate (Atropine 1% Oph) 1 drop BID BOTH EYES Last administered on 08/22/18 10:36; Admin Dose 1 DROP; Start 08/16/18 at 09:00 Losartan Potassium (Cozaar) 50 mg DAILY PO Last administered on 08/22/18 14:17; Admin Dose 50 MG; Start 08/16/18 at 09:00 Clonidine (Catapres) 0.1 mg Q4H PRN PO ELEVATED BLOOD PRESSURE Last admin istered on 08/22/18 00:49; Admin Dose 0.1 MG; Start 08/16/18 at 08:30 Isosorbide Mononitrate (Imdur) 60 mg DAILY PO Last administered on 08/22/18 14:17; Admin Dose 60 MG; Start 08/16/18 at 11:00 Heparin Sodium (Porcine) (Heparin (1000 Units/ml)) 4,000 unit AFTER DIALYSIS CATHETER Last administered on 08/22/18 12:20; Admin Dose 4,000 UNIT; Start 08/16/18 at 12:30 Albumin Human 100 ml @ 100 mls/hr WITH DIALYSIS PRN IV SBP <90 DURING DIALYSIS; Start 08/16/18 at 12:30 Sodium Chloride (NS) -To prime the dialy... DIRECTED FOR HD PRN IV HD; Start 08/16/18 at 12:30 Nifedipine (Procardia Xl) 60 mg BID PO Last administered on 08/22/18 14:18; Admin Dose 60 MG; Start 08/16/18 at 21:00 Famotidine (Pepcid) 20 mg QHS PO Last administered on 08/21/18 21:02; Admin Dose 20 MG; Start 08/17/18 at 21:00 Minoxidil (Loniten) 5 mg BID PO Last administered on 08/22/18 14:18; Admin Dose 5 MG; Start 08/17/18 at 21:00 Acetaminophen (Tylenol Tab) 650 mg Q6H PRN PO MILD PAIN(1-3)OR ELEVATED TEMP Last administered on 08/18/18at 10:26; Admin Dose 650 MG; Start 08/18/18 at 10:30 Diagnostic Test (Pha) (Accu-Chek) 1 ea 02 XX Last administered on 08/19/18at 02:00; Admin Dose 1 EA; Start 08/19/18 at 02:00 Insulin Aspart (Novolog Insulin Pen) NOVOLOG *MILD* ALGORITHM WITH MEALS BEDTIME SC Last administered on 08/22/18at 17:27; Admin Dose 1 UNIT; Start 08/18/18 at 12:00 Miscellaneous Information 1 ea NOTE XX ; Start 08/18/18 at 10:30 Glucose (Glutose) 15 gm Q15M PRN PO DECREASED GLUCOSE; Start 08/18/18 at 10:30 Glucose (Glutose) 22.5 gm Q15M PRN PO DECREASED GLUCOSE; Start 08/18/18 at 10:30 Dextrose (D50w Syringe) 25 ml Q15M PRN IV DECREASED GLUCOSE; Start 08/18/18 at 10:30 Dextrose (D50w Syringe) 50 ml Q15M PRN IV DECREASED GLUCOSE; Start 08/18/18 at 10:30 Glucagon (Glucagen) 1 mg Q15M PRN IM DECREASED GLUCOSE; Start 08/18/18 at 10:30 Glucose (Glutose) 15 gm Q15M PRN BUCCAL DECREASED GLUCOSE; Start 08/18/18 at 10:30 Vancomycin HCl (Vancomycin Oral Syringe) 250 mg Q6 PO Last administered on 08/22/18at 17:22; Admin Dose 250 MG; Start 08/22/18 at 00:00 Hydroxyzine HCl (Atarax) 25 mg Q6H PRN PO ITCHING Last administered on 08/22/18at 10:36; Admin Dose 25 MG; Start 08/22/18 at 10:00 Labetalol HCl (Normodyne) 200 mg BID PO ; Start 08/22/18 at 21:00 MARGARITO DAMICO Aug 22, 2018 17:55
--- NOTE | 2018-08-22 18:49 | CONS ---
Assessment/Plan Assessment/Plan Hospital Course (Demo Recall) assessment - organizing pneumonia based on Bx on 08/17/2018. nodular density of RLL on CXR 08/15/2018, multiple nodular densities within RLL, a nodule in LLL on CT 08/16/2018. s/p CT guided Bx on 08/17/2018, no e/o malignancy - URI, possible sinusitis, otitis. CT sinus on 08/16/2018 showed paranasal sinus mucosal disease. Pt took pip/tazo (08/15/2018-08/20/2018) - L retro-orbital pain and L corneal opacity (plus eye discharge according to Pt's RN's note), possible keratitis, improved - b/l blindness - DM - CAD - h/o MT - h/o CABG - ESRD on HD - dirrhea recommendations - pending results: coccidioides serology, tissue (fungal and AFB cultures), (Q TB gold negative, AFB smear of sputum was negative x3 and HIV test negative) - Pt's on empiric PO vancomycin (08/21/2018-) per PMD management d/w Pt Consultation Date/Type/Reason Admit Date/Time Aug 16, 2018 at 00:15 Initial Consult Date 08/17/18 Type of Consult ID Requesting Provider: HARMONY PETERSON MD Date/Time of Note DATE: 08/22/18 TIME: 18:47 24 HR Interval Summary Constitutional: improved Detailed Summary Eyes: other (blind) ENT: no complaints Respiratory: no complaints Cardiovascular: no complaints Gastrointestinal: no complaints, other (diarrhea stopped) Genitourinary: other (on HD) Musculoskeletal: no complaints Skin: no complaints Neurologic: no complaints Exam/Review of Systems Exam Vitals Vital Signs Date Temp Pulse Resp B/P (MAP) Pulse Ox O2 O2 Flow FiO2 Time Delivery Rate 08/22/18 58 16:01 08/22/18 98.3 20 165/74 93 15:07 (104) 08/22/18 Room Air 12:25 Intake and Output 08/21/18 08/21/18 08/22/18 1515:00 23:00 07:00 IntakeIntake Total 450 ml 240 ml BalanceBalance 450 ml 240 ml Constitutional: alert Psych: no complaints, nl mood/affect Head: normocephalic, atraumatic Eyes: nl lids, other (+L cataract) ENMT: nl external ears & nose, nl nasal mucosa & septum Neck: other (not swollen) Cardiovascular: regular rate and rhythm, nl pulses; No edema Gastrointestinal: soft, non-tender Musculoskeletal: nl extremities to inspection Extremities: No edema 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: nl mental status, nl speech Skin: nl turgor; No rash or lesions Results Result Diagram: 08/20/1852308/20/18523 Results 24hrs Laboratory Tests Test 08/21/18 21:10 08/22/18 07:51 08/22/18 11:25 08/22/18 17:23 Bedside Glucose 159 81 111 165 Medications Medication Current Medications Dextrose (D50w Syringe) ONCE PRN IV DECREASED GLUCOSE Last administered on 08/15/18 23:48; Admin Dose 50 ML; Start 08/15/18 at 23:00 Zolpidem Tartrate (Ambien) 5 mg HS PRN PO INSOMNIA Last administered on 08/21/18 21:01; Admin Dose 5 MG; Start 08/16/18 at 02:30 Atropine Sulfate (Atropine 1% Oph) 1 drop BID BOTH EYES Last administered on 08/22/18 10:36; Admin Dose 1 DROP; Start 08/16/18 at 09:00 Losartan Potassium (Cozaar) 50 mg DAILY PO Last administered on 08/22/18 14:17; Admin Dose 50 MG; Start 08/16/18 at 09:00 Clonidine (Catapres) 0.1 mg Q4H PRN PO ELEVATED BLOOD PRESSURE Last administer ed on 08/22/18 00:49; Admin Dose 0.1 MG; Start 08/16/18 at 08:30 Isosorbide Mononitrate (Imdur) 60 mg DAILY PO Last administered on 08/22/18 14:17; Admin Dose 60 MG; Start 08/16/18 at 11:00 Heparin Sodium (Porcine) (Heparin (1000 Units/ml)) 4,000 unit AFTER DIALYSIS CATHETER Last administered on 08/22/18 12:20; Admin Dose 4,000 UNIT; Start 08/16/18 at 12:30 Albumin Human 100 ml @ 100 mls/hr WITH DIALYSIS PRN IV SBP <90 DURING DIALYSIS; Start 08/16/18 at 12:30 Sodium Chloride (NS) -To prime the dialy... DIRECTED FOR HD PRN IV HD; Start 08/16/18 at 12:30 Nifedipine (Procardia Xl) 60 mg BID PO Last administered on 08/22/18 14:18; Admin Dose 60 MG; Start 08/16/18 at 21:00 Famotidine (Pepcid) 20 mg QHS PO Last administered on 08/21/18 21:02; Admin Dose 20 MG; Start 08/17/18 at 21:00 Minoxidil (Loniten) 5 mg BID PO Last administered on 08/22/18 14:18; Admin Dose 5 MG; Start 08/17/18 at 21:00 Acetaminophen (Tylenol Tab) 650 mg Q6H PRN PO MILD PAIN(1-3)OR ELEVATED TEMP Last administered on 08/18/18at 10:26; Admin Dose 650 MG; Start 08/18/18 at 10:30 Diagnostic Test (Pha) (Accu-Chek) 1 ea 02 XX Last administered on 08/19/18at 02:00; Admin Dose 1 EA; Start 08/19/18 at 02:00 Insulin Aspart (Novolog Insulin Pen) NOVOLOG *MILD* ALGORITHM WITH MEALS BEDTIME SC Last administered on 08/22/18 17:27; Admin Dose 1 UNIT; Start 08/18/18 at 12:00 Miscellaneous Information 1 ea NOTE XX ; Start 08/18/18 at 10:30 Glucose (Glutose) 15 gm Q15M PRN PO DECREASED GLUCOSE; Start 08/18/18 at 10:30 Glucose (Glutose) 22.5 gm Q15M PRN PO DECREASED GLUCOSE; Start 08/18/18 at 10:30 Dextrose (D50w Syringe) 25 ml Q15M PRN IV DECREASED GLUCOSE; Start 08/18/18 at 10:30 Dextrose (D50w Syringe) 50 ml Q15M PRN IV DECREASED GLUCOSE; Start 08/18/18 at 10:30 Glucagon (Glucagen) 1 mg Q15M PRN IM DECREASED GLUCOSE; Start 08/18/18 at 10:30 Glucose (Glutose) 15 gm Q15M PRN BUCCAL DECREASED GLUCOSE; Start 08/18/18 at 10:30 Vancomycin HCl (Vancomycin Oral Syringe) 250 mg Q6 PO Last administered on 17:22; Admin Dose 250 MG; Start 08/22/18 at 00:00 Hydroxyzine HCl (Atarax) 25 mg Q6H PRN PO ITCHING Last administered on 08/22/18at 10:36; Admin Dose 25 MG; Start 08/22/18 at 10:00 Labetalol HCl (Normodyne) 200 mg BID PO ; Start 08/22/18 at 21:00 ANTONY RAND M.D. Aug 22, 2018 18:49
[2018-08-22] MEDS: LABETALOL 200 MG TAB PO SCH (21:00)
[2018-08-22] MEDS: FAMOTIDINE 20 MG TAB PO SCH (21:17)
[2018-08-23] VITALS (10 sets, daily range): BP systolic 148–201; BP diastolic 68–94; PULSE 58–65; RESP 18–20
[2018-08-23] MEDS: ACCU-CHEK XX SCH (02:14)
[2018-08-23] MEDS: VANCOMYCIN HCL 250 MG/5ML POSYG PO SCH ×3 (05:44→17:22)
[2018-08-23] MEDS: INSULIN ASPART [NOVOLOG] 3 ML PEN SC SCH ×4 (08:00→20:24)
[2018-08-23] MEDS: MINOXIDIL 2.5 MG TAB PO SCH ×2 (08:52→20:13)
[2018-08-23] MEDS: ISOSORBIDE MONONITRATE(SR)60 MG TAB PO SCH (08:52)
[2018-08-23] MEDS: NIFEdipine (XL) 60 MG TAB PO SCH ×2 (08:52→20:13)
[2018-08-23] MEDS: LOSARTAN 50 MG TAB PO SCH (08:53)
[2018-08-23] MEDS: ATROPINE 1% 5 ML OPH BOTH EYES SCH ×2 (08:53→20:14)
[2018-08-23] MEDS: LABETALOL 200 MG TAB PO SCH ×3 (08:53→23:07)
--- NOTE | 2018-08-23 08:59 | CONS ---
Assessment/Plan Assessment/Plan Assessment/Plan (Daily) Assessment and recommendations; 1. Patient admitted with shortness of breath with history of chronic renal failure on hemodialysis, CT imaging of the chest was done which is showing right lower lobe lung mass, status post biopsy showing organizing pneumonia with acute inflammation without any evidence of malignancy. Possibly related to focal pneumonia. 2. Chronic renal failure, on hemodialysis. 3. Prior CABG. 4. History of hypertension. 5. Leukopenia and thrombocytopenia. Continue current supportive care. Hemodialysis per sales team recruiter. Patient will need to have follow-up CT imaging of the chest in about 6 weeks time. Consultation Date/Type/Reason Admit Date/Time Aug 16, 2018 at 00:15 Initial Consult Date 08/17/18 Type of Consult Pulmonary Patient's condition is stable. Denies any shortness of breath, coughing, chest pain, any sputum production or wheezing. General exam; middle-aged male, getting hemodialysis at bedside. Currently no distress. Requesting Provider: HARMONY PETERSON MD Date/Time of Note DATE: 08/23/18 TIME: 08:56 24 HR Interval Summary Free Text/Dictation Patient's condition is stable. Denies any shortness of breath any coughing, sputum production hemoptysis any fever or chills. General exam; middle-aged male, awake alert, laying comfortably in bed. Currently no distress. Exam/Review of Systems Exam Vitals Vital Signs Date Temp Pulse Resp B/P (MAP) Pulse Ox O2 O2 Flow FiO2 Time Delivery Rate 08/23/18 64 08:01 08/23/18 98.2 20 163/68 94 07:51 (99) 08/22/18 Room Air 12:25 Intake and Output 08/22/18 08/22/18 08/23/18 1515:00 23:00 07:00 IntakeIntake Total 1000 ml 400 ml OutputOutput Total 2900 ml BalanceBalance -2900 ml 1000 ml 400 ml Exam H EENT exam; supple neck, no JVD. No lymphadenopathy. Midline trachea. No thyromegaly. Patient has a left corneal opacity. Chest exam; diminished but clear breath sounds. S1-S2 audible, no murmurs. Regular rhythm. There is a well-healed sternal scar. Abdomen exam; soft, nontender. No organomegaly. Bowel sounds audible. Extremity exam; no peripheral edema clubbing. OCCUPATIONAL THERAPY TECHNICIAN exam; no focal deficit. Results Result Diagram: 08/23/18 0504 08/23/18 0504 Results 24hrs Laboratory Tests Test 08/22/18 11:25 08/22/18 17:23 08/22/18 21:24 08/23/18 02:08 Bedside Glucose 111 165 185 90 Test 08/23/18 05:04 08/23/18 08:49 White Blood Count 2.9 L Red Blood Count 4.27 L Hemoglobin 12.7 L Hematocrit 37.8 L Mean Corpuscular Volume 88.5 Mean Corpuscular 29.7 Hemoglobin Mean Corpuscular 33.6 Hemoglobin Concent Red Cell Distribution 13.1 Width Platelet Count 117 L Mean Platelet Volume 11.2 H Immature Granulocytes % 0.300 Neutrophils % 58.5 Lymphocytes % 12.7 L Monocytes % 10.7 Eosinophils % 17.5 H Basophils % 0.3 Nucleated Red Blood 0.0 Cells % Immature Granulocytes # 0.010 Neutrophils # 1.7 Lymphocytes # 0.4 L Monocytes # 0.3 Eosinophils # 0.5 Basophils # 0.0 Nucleated Red Blood 0.0 Cells # Sodium Level 135 Potassium Level 5.4 H Chloride Level 93 L Carbon Dioxide Level 24 Anion Gap 18 H Blood Urea Nitrogen 58 H Creatinine 8.86 H Est Glomerular Filtrat 6 L Rate mL/min Glucose Level 91 Calcium Level 7.7 L Bedside Glucose 85 Medications Medication Current Medications Dextrose (D50w Syringe) ONCE PRN IV DECREASED GLUCOSE Last administered on 08/15/18 23:48; Admin Dose 50 ML; Start 08/15/18 at 23:00 Zolpidem Tartrate (Ambien) 5 mg HS PRN PO INSOMNIA Last administered on 08/21/18 21:01; Admin Dose 5 MG; Start 08/16/18 at 02:30 Atropine Sulfate (Atropine 1% Oph) 1 drop BID BOTH EYES Last administered on 08/22/18 21:17; Admin Dose 1 DROP; Start 08/16/18 at 09:00 Losartan Potassium (Cozaar) 50 mg DAILY PO Last administered on 08/22/18 14:17; Admin Dose 50 MG; Start 08/16/18 at 09:00 Clonidine (Catapres) 0.1 mg Q4H PRN PO ELEVATED BLOOD PRESSURE Last administered on 08/22/18 00:49; Admin Dose 0.1 MG; Start 08/16/18 at 08:30 Isosorbide Mononitrate (Imdur) 60 mg DAILY PO Last administered on 08/22/18 14:17; Admin Dose 60 MG; Start 08/16/18 at 11:00 Heparin Sodium (Porcine) (Heparin (1000 Units/ml)) 4,000 unit AFTER DIALYSIS CATHETER Last administered on 08/22/18 12:20; Admin Dose 4,000 UNIT; Start 08/16/18 at 12:30 Albumin Human 100 ml @ 100 mls/hr WITH DIALYSIS PRN IV SBP <90 DURING DIALYSIS; Start 08/16/18 at 12:30 Sodium Chloride (NS) -To prime the dialy... DIRECTED FOR HD PRN IV HD; Start 08/16/18 at 12:30 Nifedipine (Procardia Xl) 60 mg BID PO Last administered on 08/22/18 21:20; Admin Dose 60 MG; Start 08/16/18 at 21:00 Famotidine (Pepcid) 20 mg QHS PO Last administered on 08/22/18 21:17; Admin Dose 20 MG; Start 08/17/18 at 21:00 Minoxidil (Loniten) 5 mg BID PO Last administered on 08/22/18 21:20; Admin Dose 5 MG; Start 08/17/18 at 21:00 Acetaminophen (Tylenol Tab) 650 mg Q6H PRN PO MILD PAIN(1-3)OR ELEVATED TEMP Last administered on 08/18/18 10:26; Admin Dose 650 MG; Start 08/18/18 at 10:30 Diagnostic Test (Pha) (Accu-Chek) 1 ea 02 XX Last administered on 08/23/18 02:14; Admin Dose 1 EA; Start 08/19/18 at 02:00 Insulin Aspart (Novolog Insulin Pen) NOVOLOG *MILD* ALGORITHM WITH MEALS BEDTIME SC Last administered on 08/22/18 21:32; Admin Dose 1 UNIT; Start 08/18/18 at 12:00 Miscellaneous Information 1 ea NOTE XX ; Start 08/18/18 at 10:30 Glucose (Glutose) 15 gm Q15M PRN PO DECREASED GLUCOSE; Start 08/18/18 at 10:30 Glucose (Glutose) 22.5 gm Q15M PRN PO DECREASED GLUCOSE; Start 08/18/18 at 10:30 Dextrose (D50w Syringe) 25 ml Q15M PRN IV DECREASED GLUCOSE; Start 08/18/18 at 10:30 Dextrose (D50w Syringe) 50 ml Q15M PRN IV DECREASED GLUCOSE; Start 08/18/18 at 10:30 Glucagon (Glucagen) 1 mg Q15M PRN IM DECREASED GLUCOSE; Start 08/18/18 at 10:30 Glucose (Glutose) 15 gm Q15M PRN BUCCAL DECREASED GLUCOSE; Start 08/18/18 at 10:30 Vancomycin HCl (Vancomycin Oral Syringe) 250 mg Q6 PO Last administered on 08/23/18at 05:44; Admin Dose 250 MG; Start 08/22/18 at 00:00 Hydroxyzine HCl (Atarax) 25 mg Q6H PRN PO ITCHING Last administered on 08/22/18at 10:36; Admin Dose 25 MG; Start 08/22/18 at 10:00 Labetalol HCl (Normodyne) 200 mg BID PO ; Start 08/22/18 at 21:00 JANES DOMINGO 5, 2019 08:59
--- NOTE | 2018-08-23 11:45 | CONS ---
Consult Date/Type/Reason Admit Date/Time Aug 16, 2018 at 00:15 Initial Consult Date 08/16/18 Type of Consultation: CV Requesting Provider: HARMONY PETERSON MD Date/Time of Note DATE: 08/23/18 TIME: 11:44 Subjective Cardiology follow-up progress note Subjective: Discussed with the staff telemetry was reviewed patient with normal sinus rhythm/sinus bradycardia Patient with no chest pain or pressure. HE denies bleeding to me His cough is much better now Objective: General: no acute distress HEENT: NC/AT. . NECK: NO JVD. no stridor. CV: RRR. systolic murmur; no gallop or rubs. PULM: no wheezing or rhonchi. GI: SOFT, NT, ND, no rebound or guarding Extremity: trace B/L LE edema. no clubbing. neuro: awake and alert, OX3. Psych: calm and pleasant rectal: deferred : normal EKG was personally within normal sinus rhythm nonspecific ST abnormalities Chest x-ray shows: Mild cardiomegaly. Mild pulmonary vascular congestion. Calcified aorta consistent with atherosclerotic disease. 3.8 cm right lower lobe nodular opacity. Follow-up CT chest is recommended. Echocardiogram done 08/16/2018 shows: Normal left ventricular systolic function. Normal left ventricular cavity size. Ejection fraction is visually estimated at 60 %. Tissue Doppler/Mitral Doppler indices are consistent with impaired relaxation (Stage I diastolic dysfunction). Mild mitral leaflet calcification. Mild mitral annular calcification. Mild mitral valve regurgitation. No significant aortic stenosis or insufficiency. Aortic cusps appear mildly calcified. Normal appearance of the tricuspid valve. Estimated peak PA systolic pressure 36 mmHg. There is mild tricuspid regurgitation. CT of the chest on 08/13/2018 shows: Multiple nodular densities are seen within the right lower lobe and this corresponds to the abnormality on prior chest radiograph. There is also a nodule in the left lower lobe. These could represent infectious nodular opacities or could represent neoplastic lesions. This can be correlated with clinical findin gs and biopsy may be considered as clinically warranted. Follow-up CT is recommended after 3 months. Renal atrophy is present with mild cardiomegaly and faint pulmonary edema. Atherosclerotic disease is present. There is a fecal filled colon with diverticulosis. Objective Vitals Vital Signs Date Temp Pulse Resp B/P (MAP) Pulse Ox O2 O2 Flow FiO2 Time Delivery Rate 08/23/18 64 08:01 08/23/18 98.2 20 163/68 94 07:51 (99) 08/22/18 Room Air 12:25 Intake and Output 08/22/18 08/22/18 08/23/18 1515:00 23:00 07:00 IntakeIntake Total 1000 ml 400 ml OutputOutput Total 2900 ml BalanceBalance -2900 ml 1000 ml 400 ml Results/Medications Result Diagram: 08/23/18 0504 08/23/18 0504 Results 24 hrs Laboratory Tests Test 08/22/18 17:23 08/22/18 21:24 08/23/18 02:08 08/23/18 05:04 Bedside Glucose 165 185 90 White Blood Count 2.9 L Red Blood Count 4.27 L Hemoglobin 12.7 L Hematocrit 37.8 L Mean Corpuscular 88.5 Volume Mean Corpuscular 29.7 Hemoglobin Mean Corpuscular 33.6 Hemoglobin Concent Red Cell Distribution 13.1 Width Platelet Count 117 L Mean Platelet Volume 11.2 H Immature Granulocytes 0.300 % Neutrophils % 58.5 Lymphocytes % 12.7 L Monocytes % 10.7 Eosinophils % 17.5 H Basophils % 0.3 Nucleated Red Blood 0.0 Cells % Immature Granulocytes 0.010 # Neutrophils # 1.7 Lymphocytes # 0.4 L Monocytes # 0.3 Eosinophils # 0.5 Basophils # 0.0 Nucleated Red Blood 0.0 Cells # Sodium Level 135 Potassium Level 5.4 H Chloride Level 93 L Carbon Dioxide Level 24 Anion Gap 18 H Blood Urea Nitrogen 58 H Creatinine 8.86 H Est Glomerular 6 L Filtrat Rate mL/min Glucose Level 91 Calcium Level 7.7 L Test 08/23/18 08:49 08/23/18 11:40 Bedside Glucose 85 Lab Scanned Report REFERENCE LAB Home Meds Reported Medications Nifedipine* (Nifedipine ER*) 90 Mg Tablet.er, 90 MG PO DAILY, TAB 08/15/18 Carvedilol* (Carvedilol*) 6.25 Mg Tablet, 6.25 MG PO BID, #60 TAB 08/15/18 Isosorbide Mononitrate* (Isosorbide Mononitrate*) 60 Mg Tab.er.24h, 60 MG PO DAILY, TAB 08/15/18 Losartan Potassium* (Losartan Potassium*) 50 Mg Tablet, 50 MG PO DAILY, TAB 08/15/18 Minoxidil* (Lonitin*) 2.5 Mg Tab, 2.5 MG PO BID, TAB 08/15/18 Famotidine* (Famotidine*) 20 Mg Tablet, 20 MG PO BID, #60 TAB 08/15/18 Atropine Sulfate/0.9 %Sod Chlr (Atropine 0.01%-Ns Eye Drops) 10 Ml Drops, 15 ML OP BID, BOTTLE 08/15/18 Tamsulosin Hcl* (Tamsulosin Hcl*) 0.4 Mg Cap.er.24h, 0.4 MG PO DAILY, CAP 08/15/18 Clonidine Hcl* (Clonidine Hcl*) 0.1 Mg Tab, 0.2 MG PO BID PRN for ELEVATED BLOOD PRESSURE, TAB 08/15/18 Sevelamer Carbonate* (Renvela*) 800 Mg Tablet, 0.8 GM PO WITH MEALS, TAB 08/15/18 Medications Current Medications Dextrose (D50w Syringe) ONCE PRN IV DECREASED GLUCOSE Last administered on 08/15/18 23:48; Admin Dose 50 ML; Start 08/15/18 at 23:00 Zolpidem Tartrate (Ambien) 5 mg HS PRN PO INSOMNIA Last administered on 08/21/18 21:01; Admin Dose 5 MG; Start 08/16/18 at 02:30 Atropine Sulfate (Atropine 1% Oph) 1 drop BID BOTH EYES Last administered on 08/23/18 08:53; Admin Dose 1 DROP; Start 08/16/18 at 09:00 Losartan Potassium (Cozaar) 50 mg DAILY PO Last administered on 08/23/18 08:53; Admin Dose 50 MG; Start 08/16/18 at 09:00 Clonidine (Catapres) 0.1 mg Q4H PRN PO ELEVATED BLOOD PRESSURE Last administered on 08/22/18 00:49; Admin Dose 0.1 MG; Start 08/16/18 at 08:30 Isosorbide Mononitrate (Imdur) 60 mg DAILY PO Last administered on 08/23/18 08:52; Admin Dose 60 MG; Start 08/16/18 at 11:00 Heparin Sodium (Porcine) (Heparin (1000 Units/ml)) 4,000 unit AFTER DIALYSIS CATHETER Last administered on 08/22/18 12:20; Admin Dose 4,000 UNIT; Start at 12:30 Albumin Human 100 ml @ 100 mls/hr WITH DIALYSIS PRN IV SBP <90 DURING DIALYSIS; Start 08/16/18 at 12:30 Sodium Chloride (NS) -To prime the dialy... DIRECTED FOR HD PRN IV HD; Start 08/16/18 at 12:30 Nifedipine (Procardia Xl) 60 mg BID PO Last administered on 08/23/18at 08:52; Adm in Dose 60 MG; Start 08/16/18 at 21:00 Famotidine (Pepcid) 20 mg QHS PO Last administered on 08/22/18at 21:17; Admin Dose 20 MG; Start 08/17/18 at 21:00 Minoxidil (Loniten) 5 mg BID PO Last administered on 08/23/18at 08:52; Admin Dose 5 MG; Start 08/17/18 at 21:00 Acetaminophen (Tylenol Tab) 650 mg Q6H PRN PO MILD PAIN(1-3)OR ELEVATED TEMP Last administered on 08/18/18at 10:26; Admin Dose 650 MG; Start 08/18/18 at 10:30 Diagnostic Test (Pha) (Accu-Chek) 1 ea 02 XX Last administered on 08/23/18at 02 :14; Admin Dose 1 EA; Start 08/19/18 at 02:00 Insulin Aspart (Novolog Insulin Pen) NOVOLOG *MILD* ALGORITHM WITH MEALS BEDTIME SC Last administered on 08/22/18at 21:32; Admin Dose 1 UNIT; Start 08/18/18 at 12:00 Miscellaneous Information 1 ea NOTE XX ; Start 08/18/18 at 10:30 Glucose (Glutose) 15 gm Q15M PRN PO DECREASED GLUCOSE; Start 08/18/18 at 10:30 Glucose (Glutose) 22.5 gm Q15M PRN PO DECREASED GLUCOSE; Start 08/18/18 at 10:30 Dextrose (D50w Syringe) 25 ml Q15M PRN IV DECREASED GLUCOSE; Start 08/18/18 at 10:30 Dextrose (D50w Syringe) 50 ml Q15M PRN IV DECREASED GLUCOSE; Start 08/18/18 at 10:30 Glucagon (Glucagen) 1 mg Q15M PRN IM DECREASED GLUCOSE; Start 08/18/18 at 10:30 Glucose (Glutose) 15 gm Q15M PRN BUCCAL DECREASED GLUCOSE; Start 08/18/18 at 10:30 Vancomycin HCl (Vancomycin Oral Syringe) 250 mg Q6 PO Last administered on 08/23/18at 05:44; Admin Dose 250 MG; Start 08/22/18 at 00:00 Hydroxyzine HCl (Atarax) 25 mg Q6H PRN PO ITCHING Last administered on 08/22/18at 10:36; Admin Dose 25 MG; Start 08/22/18 at 10:00 Labetalol HCl (Normodyne) 200 mg BID PO Last administered on 08/23/18at 08:53; Admin Dose 200 MG; Start 08/22/18 at 21:00 Assessment/Plan Hospital Course (Demo Recall) 1. Hypertensive urgency/resistant hypertension 2. History of coronary artery disease 3. History of most likely [place] and coronary artery bypass graft 4. Renal failure on dialysis 5. Pulmonary vascular congestion/fluid overload 6. Diabetes 7. Dyslipidemia 8. Hyperkalemia 9. Pulmonary nodule Recommendations: Continue with the Procardia. inc labetalol Continue with minoxidil now at 5 bid Continue with losartan as long as okay with renal and hyperkalemia Clonidine will be continued as a as needed as well. Lipid panel reviewed and showed LDL at goal of less than 70 Hemodialysis as per renal follow up with pulmonary recommendations Thank you for his referral. We will continue to follow along with you NAHUN RUSSELL MD [facility] NAHUN RUSSELL MD Aug 23, 2018 11:45
--- NOTE | 2018-08-23 13:00 | CONS ---
Assessment/Plan Assessment/Plan Hospital Course (Demo Recall) #Multiple lung mass in RLL -CT guided bx reveals evidence of pneumonia #Pneumonia - pending results: quantiferon TB old, coccidioides serology, tissue (fungal and AFB cultures), (Q TB gold negative, AFB smear of sputum was negative x3 and HIV test negative) - continue empiric PO vancomycin (08/21/2018-) #ESRD -continue HD per renal #HTN -continue BP meds Thank you for the opportunity to participate in this patients care A total of 40 minutes of face to face time was spent speaking with the patient, of which greater than 50% was spent in counseling and coordination of care and the detailed question and answer session. Consultation Date/Type/Reason Admit Date/Time Aug 16, 2018 at 00:15 Initial Consult Date 08/17/18 Type of Consult oncology Reason for Consultation pulmonary nodules Requesting Provider: HARMONY PETERSON MD Date/Time of Note DATE: 08/23/18 TIME: 12:58 24 HR Interval Summary Free Text/Dictation no acute overnight events Exam/Review of Systems Exam Vitals Vital Signs Date Temp Pulse Resp B/P (MAP) Pulse Ox O2 O2 Flow FiO2 Time Delivery Rate 08/23/18 60 12:01 08/23/18 98.1 20 148/70 93 11:54 (96) 08/22/18 Room Air 12:25 Intake and Output 08/22/18 08/22/18 08/23/18 1515:00 23:00 07:00 IntakeIntake Total 1000 ml 400 ml OutputOutput Total 2900 ml BalanceBalance -2900 ml 1000 ml 400 ml Constitutional: alert, oriented Psych: no complaints Head: normocephalic Eyes: nl conjunctiva, other (cataracts) ENMT: nl external ears & nose Neck: supple Respiratory: clear to auscultation Cardiovascular: regular rate and rhythm Gastrointestinal: soft Musculoskeletal: nl extremities to inspection Results Result Diagram: 08/23/18 0504 08/23/18 0504 Results 24hrs Laboratory Tests Test 08/22/18 17:23 08/22/18 21:24 08/23/18 02:08 08/23/18 05:04 Bedside Glucose 165 185 90 White Blood Count 2.9 L Red Blood Count 4.27 L Hemoglobin 12.7 L Hematocrit 37.8 L Mean Corpuscular 88.5 Volume Mean Corpuscular 29.7 Hemoglobin Mean Corpuscular 33.6 Hemoglobin Concent Red Cell Distribution 13.1 Width Platelet Count 117 L Mean Platelet Volume 11.2 H Immature Granulocytes 0.300 % Neutrophils % 58.5 Lymphocytes % 12.7 L Monocytes % 10.7 Eosinophils % 17.5 H Basophils % 0.3 Nucleated Red Blood 0.0 Cells % Immature Granulocytes 0.010 # Neutrophils # 1.7 Lymphocytes # 0.4 L Monocytes # 0.3 Eosinophils # 0.5 Basophils # 0.0 Nucleated Red Blood 0.0 Cells # Sodium Level 135 Potassium Level 5.4 H Chloride Level 93 L Carbon Dioxide Level 24 Anion Gap 18 H Blood Urea Nitrogen 58 H Creatinine 8.86 H Est Glomerular 6 L Filtrat Rate mL/min Glucose Level 91 Calcium Level 7.7 L Test 08/23/18 08:49 08/23/18 11:40 08/23/18 11:50 Bedside Glucose 85 241 H Lab Scanned Report REFERENCE LAB Medications Medication Current Medications Dextrose (D50w Syringe) ONCE PRN IV DECREASED GLUCOSE Last administered on 08/15/18 23:48; Admin Dose 50 ML; Start 08/15/18 at 23:00 Zolpidem Tartrate (Ambien) 5 mg HS PRN PO INSOMNIA Last administered on 08/21/18 21:01; Admin Dose 5 MG; Start 08/16/18 at 02:30 Atropine Sulfate (Atropine 1% Oph) 1 drop BID BOTH EYES Last administered on 08/23/18 08:53; Admin Dose 1 DROP; Start 08/16/18 at 09:00 Losartan Potassium (Cozaar) 50 mg DAILY PO Last administered on 08/23/18 08:53; Admin Dose 50 MG; Start 08/16/18 at 09:00 Clonidine (Catapres) 0.1 mg Q4H PRN PO ELEVATED BLOOD PRESSURE Last ad ministered on 08/22/18 00:49; Admin Dose 0.1 MG; Start 08/16/18 at 08:30 Isosorbide Mononitrate (Imdur) 60 mg DAILY PO Last administered on 08/23/18 08:52; Admin Dose 60 MG; Start 08/16/18 at 11:00 Heparin Sodium (Porcine) (Heparin (1000 Units/ml)) 4,000 unit AFTER DIALYSIS CATHETER Last administered on 08/22/18 12:20; Admin Dose 4,000 UNIT; Start 08/16/18 at 12:30 Albumin Human 100 ml @ 100 mls/hr WITH DIALYSIS PRN IV SBP <90 DURING DIALYSIS; Start 08/16/18 at 12:30 Sodium Chloride (NS) -To prime the dialy... DIRECTED FOR HD PRN IV HD; Start 08/16/18 at 12:30 Nifedipine (Procardia Xl) 60 mg BID PO Last administered on 08/23/18 08:52; Admin Dose 60 MG; Start 08/16/18 at 21:00 Famotidine (Pepcid) 20 mg QHS PO Last administered on 08/22/18 21:17; Admin Dose 20 MG; Start 08/17/18 at 21:00 Minoxidil (Loniten) 5 mg BID PO Last administered on 08/23/18 08:52; Admin Dose 5 MG; Start 08/17/18 at 21:00 Acetaminophen (Tylenol Tab) 650 mg Q6H PRN PO MILD PAIN(1-3)OR ELEVATED TEMP Last administered on 08/18/18at 10:26; Admin Dose 650 MG; Start 08/18/18 at 10:30 Diagnostic Test (Pha) (Accu-Chek) 1 ea 02 XX Last administered on 08/23/18 02:14; Admin Dose 1 EA; Start 08/19/18 at 02:00 Insulin Aspart (Novolog Insulin Pen) NOVOLOG *MILD* ALGORITHM WITH MEALS BEDTIME SC Last administered on 08/23/18 12:06; Admin Dose 3 UNIT; Start 08/18/18 at 12:00 Miscellaneous Information 1 ea NOTE XX ; Start 08/18/18 at 10:30 Glucose (Glutose) 15 gm Q15M PRN PO DECREASED GLUCOSE; Start 08/18/18 at 10:30 Glucose (Glutose) 22.5 gm Q15M PRN PO DECREASED GLUCOSE; Start 08/18/18 at 10:30 Dextrose (D50w Syringe) 25 ml Q15M PRN IV DECREASED GLUCOSE; Start 08/18/18 at 10:30 Dextrose (D50w Syringe) 50 ml Q15M PRN IV DECREASED GLUCOSE; Start 08/18/18 at 10:30 Glucagon (Glucagen) 1 mg Q15M PRN IM DECREASED GLUCOSE; Start 08/18/18 at 10:30 Glucose (Glutose) 15 gm Q15M PRN BUCCAL DECREASED GLUCOSE; Start 08/18/18 at 10:30 Vancomycin HCl (Vancomycin Oral Syringe) 250 mg Q6 PO Last administered on 08/23/18at 11:48; Admin Dose 250 MG; Start 08/22/18 at 00:00 Hydroxyzine HCl (Atarax) 25 mg Q6H PRN PO ITCHING Last administered on 08/22/18at 10:36; Admin Dose 25 MG; Start 08/22/18 at 10:00 Labetalol HCl (Normodyne) 400 mg BID PO ; Start 08/23/18 at 21:00 AMAYA MONDRAGON M.D. Aug 23, 2018 13:00
--- NOTE | 2018-08-23 15:11 | CONS ---
Assessment/Plan Assessment/Plan Hospital Course (Demo Recall) assessment - organizing pneumonia based on Bx on 08/17/2018. nodular density of RLL on CXR 08/15/2018, multiple nodular densities within RLL, a nodule in LLL on CT 08/16/2018. s/p CT guided Bx on 08/17/2018, no e/o malignancy - URI, possible sinusitis, otitis. CT sinus on 08/16/2018 showed paranasal sinus mucosal disease. Pt took pip/tazo (08/15/2018-08/20/2018) - L retro-orbital pain and L corneal opacity (plus eye discharge according to Pt's RN's note), possible keratitis, improved - b/l blindness - DM - CAD - h/o VA - h/o CABG - ESRD on HD - dirrhea recommendations - pending results: tissue (fungal and AFB cultures), (Q TB gold negative, AFB smear of sputum was negative x3 and HIV test negative) - I recommend d/c empiric PO vancomycin (08/21/2018-) management d/w Pt, charge nurse Mirian Consultation Date/Type/Reason Admit Date/Time Aug 16, 2018 at 00:15 Initial Consult Date 08/17/18 Type of Consult ID Requesting Provider: HARMONY PETERSON MD Date/Time of Note DATE: 08/23/18 TIME: 15:09 24 HR Interval Summary Constitutional: improved Detailed Summary Eyes: no complaints ENT: no complaints Respiratory: no complaints Cardiovascular: no complaints Gastrointestinal: no complaints, other (diarrhea stopped) Genitourinary: other (HD) Skin: no complaints Neurologic: no complaints Exam/Review of Systems Exam Vitals Vital Signs Date Temp Pulse Resp B/P (MAP) Pulse Ox O2 O2 Flow FiO2 Time Delivery Rate 08/23/18 60 12:01 08/23/18 98.1 20 148/70 93 11:54 (96) 08/22/18 Room Air 12:25 Intake and Output 08/22/18 08/22/18 08/23/18 1515:00 23:00 07:00 IntakeIntake Total 1000 ml 400 ml OutputOutput Total 2900 ml BalanceBalance -2900 ml 1000 ml 400 ml Constitutional: alert, oriented, well developed Psych: no complaints, nl mood/affect Head: normocephalic, atraumatic Eyes: nl lids, other (L cataract, blind) ENMT: nl external ears & nose, nl nasal mucosa & septum Neck: supple Respiratory: clear to auscultation, normal air movement Cardiovascular: regular rate and rhythm, nl pulses Gastrointestinal: soft Musculoskeletal: nl extremities to inspection Extremities: No edema 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: nl mental status, nl speech, nl strength Skin: nl turgor; No rash or lesions Results Result Diagram: 08/23/18 0504 08/23/18 0504 Results 24hrs Laboratory Tests Test 08/22/18 17:23 08/22/18 21:24 08/23/18 02:08 08/23/18 05:04 Bedside Glucose 165 185 90 White Blood Count 2.9 L Red Blood Count 4.27 L Hemoglobin 12.7 L Hematocrit 37.8 L Mean Corpuscular 88.5 Volume Mean Corpuscular 29.7 Hemoglobin Mean Corpuscular 33.6 Hemoglobin Concent Red Cell Distribution 13.1 Width Platelet Count 117 L Mean Platelet Volume 11.2 H Immature Granulocytes 0.300 % Neutrophils % 58.5 Lymphocytes % 12.7 L Monocytes % 10.7 Eosinophils % 17.5 H Basophils % 0.3 Nucleated Red Blood 0.0 Cells % Immature Granulocytes 0.010 # Neutrophils # 1.7 Lymphocytes # 0.4 L Monocytes # 0.3 Eosinophils # 0.5 Basophils # 0.0 Nucleated Red Blood 0.0 Cells # Sodium Level 135 Potassium Level 5.4 H Chloride Level 93 L Carbon Dioxide Level 24 Anion Gap 18 H Blood Urea Nitrogen 58 H Creatinine 8.86 H Est Glomerular 6 L Filtrat Rate mL/min Glucose Level 91 Calcium Level 7.7 L Test 08/23/18 08:49 08/23/18 11:40 08/23/18 11:50 Bedside Glucose 85 241 H Lab Scanned Report REFERENCE LAB Medications Medication Current Medications Dextrose (D50w Syringe) ONCE PRN IV DECREASED GLUCOSE Last administered on 08/15/18at 23:48; Admin Dose 50 ML; Start 08/15/18 at 23:00 Zolpidem Tartrate (Ambien) 5 mg HS PRN PO INSOMNIA Last administered on 08/21/18 21:01; Admin Dose 5 MG; Start 08/16/18 at 02:30 Atropine Sulfate (Atropine 1% Oph) 1 drop BID BOTH EYES Last administered on 3/5/19at 08:53; Admin Dose 1 DROP; Start 08/16/18 at 09:00 Losartan Potassium (Cozaar) 50 mg DAILY PO Last administered on 08/23/18 08:53; Admin Dose 50 MG; Start 08/16/18 at 09:00 Clonidine (Catapres) 0.1 mg Q4H PRN PO ELEVATED BLOOD PRESSURE Last administered on 08/22/18 00:49; Admin Dose 0.1 MG; Start 08/16/18 at 08:30 Isosorbide Mononitrate (Imdur) 60 mg DAILY PO Last administered on 08/23/18 08:52; Admin Dose 60 MG; Start 08/16/18 at 11:00 Heparin Sodium (Porcine) (Heparin (1000 Units/ml)) 4,000 unit AFTER DIALYSIS CATHETER Last administered on 08/22/18 12:20; Admin Dose 4,000 UNIT; Start 08/16/18 at 12:30 Albumin Human 100 ml @ 100 mls/hr WITH DIALYSIS PRN IV SBP <90 DURING DIALYSIS; Start 08/16/18 at 12:30 Sodium Chloride (NS) -To prime the dialy... DIRECTED FOR HD PRN IV HD; Start 08/16/18 at 12:30 Nifedipine (Procardia Xl) 60 mg BID PO Last administered on 08/23/18 08:52; Admin Dose 60 MG; Start 08/16/18 at 21:00 Famotidine (Pepcid) 20 mg QHS PO Last administered on 08/22/18 21:17; Admin Dose 20 MG; Start 08/17/18 at 21:00 Minoxidil (Loniten) 5 mg BID PO Last administered on 08/23/18 08:52; Admin Dose 5 MG; Start 08/17/18 at 21:00 Acetaminophen (Tylenol Tab) 650 mg Q6H PRN PO MILD PAIN(1-3)OR ELEVATED TEMP Last administered on 08/18/18 10:26; Admin Dose 650 MG; Start 08/18/18 at 10:30 Diagnostic Test (Pha) (Accu-Chek) 1 ea 02 XX Last administered on 08/23/18 02:14; Admin Dose 1 EA; Start 08/19/18 at 02:00 Insulin Aspart (Novolog Insulin Pen) NOVOLOG *MILD* ALGORITHM WITH MEALS BEDTIME SC Last administered on 08/23/18at 12:06; Admin Dose 3 UNIT; Start 08/18/18 at 12:00 Miscellaneous Information 1 ea NOTE XX ; Start 08/18/18 at 10:30 Glucose (Glutose) 15 gm Q15M PRN PO DECREASED GLUCOSE; Start 08/18/18 at 10:30 Glucose (Glutose) 22.5 gm Q15M PRN PO DECREASED GLUCOSE; Start 08/18/18 at 10:30 Dextrose (D50w Syringe) 25 ml Q15M PRN IV DECREASED GLUCOSE; Start 08/18/18 at 10:30 Dextrose (D50w Syringe) 50 ml Q15M PRN IV DECREASED GLUCOSE; Start 08/18/18 at 10:30 Glucagon (Glucagen) 1 mg Q15M PRN IM DECREASED GLUCOSE; Start 08/18/18 at 10:30 Glucose (Glutose) 15 gm Q15M PRN BUCCAL DECREASED GLUCOSE; Start 08/18/18 at 10:30 Vancomycin HCl (Vancomycin Oral Syringe) 250 mg Q6 PO Last administered on at 11:48; Admin Dose 250 MG; Start 08/22/18 at 00:00 Hydroxyzine HCl (Atarax) 25 mg Q6H PRN PO ITCHING Last administered on 08/22/18at 10:36; Admin Dose 25 MG; Start 08/22/18 at 10:00 Labetalol HCl (Normodyne) 400 mg BID PO ; Start 08/23/18 at 21:00 ANTONY RAND M.D. Aug 23, 2018 15:11
--- NOTE | 2018-08-23 18:24 | CONS ---
Assessment/Plan Assessment/Plan Assessment/Plan (Daily) 1. acute hyperkalemia - resolved now 2. ESRD on HD MWF 3. accelerateD HTN - improving BP control 4. acute chest pain 5.type II DM with hyperglycemia 6. H/o HTN Plan: Nifedipine 60mg pO BID, S/p HD yesterday- 2.5 L removed, pt regular schedule for HD is MWF - HD ordered for wednesday IV abx as per ID will follow u Consultation Date/Type/Reason Admit Date/Time Aug 16, 2018 at 00:15 Initial Consult Date 08/16/18 Type of Consult NEPHROLOGY Requesting Provider: HARMONY PETERSON MD Date/Time of Note DATE: 08/23/18 TIME: 18:24 Exam/Review of Systems Exam Vitals Vital Signs Date Temp Pulse Resp B/P (MAP) Pulse Ox O2 O2 Flow FiO2 Time Delivery Rate 08/23/18 64 16:01 08/23/18 98.3 20 153/72 94 15:11 (99) 08/22/18 Room Air 12:25 Intake and Output 08/22/18 08/22/18 08/23/18 1515:00 23:00 07:00 IntakeIntake Total 1000 ml 400 ml OutputOutput Total 2900 ml BalanceBalance -2900 ml 1000 ml 400 ml Exam Constitutional: alert, awake, no acute distress Respiratory: clear to auscultation, normal air movement, diminished breath sounds Cardiovascular: regular rate and rhythm, nl pulses Gastrointestinal: soft, non-tender Musculoskeletal: muscle tone, swelling Extremities: normal pulses 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: [employer] ARCHITECT II-XII intact, nl mental status, nl speech, nl strength Lymph: nl lymph nodes Results Result Diagram: 08/23/18 0504 08/23/18 0504 Results 24hrs Laboratory Tests Test 08/22/18 21:24 08/23/18 02:08 08/23/18 05:04 08/23/18 08:49 Bedside Glucose 185 90 85 White Blood Count 2.9 L Red Blood Count 4.27 L Hemoglobin 12.7 L Hematocrit 37.8 L Mean Corpuscular 88.5 Volume Mean Corpuscular 29.7 Hemoglobin Mean Corpuscular 33.6 Hemoglobin Concent Red Cell Distribution 13.1 Width Platelet Count 117 L Mean Platelet Volume 11.2 H Immature Granulocytes 0.300 % Neutrophils % 58.5 Lymphocytes % 12.7 L Monocytes % 10.7 Eosinophils % 17.5 H Basophils % 0.3 Nucleated Red Blood 0.0 Cells % Immature Granulocytes 0.010 # Neutrophils # 1.7 Lymphocytes # 0.4 L Monocytes # 0.3 Eosinophils # 0.5 Basophils # 0.0 Nucleated Red Blood 0.0 Cells # Sodium Level 135 Potassium Level 5.4 H Chloride Level 93 L Carbon Dioxide Level 24 Anion Gap 18 H Blood Urea Nitrogen 58 H Creatinine 8.86 H Est Glomerular 6 L Filtrat Rate mL/min Glucose Level 91 Calcium Level 7.7 L Test 08/23/18 11:40 08/23/18 11:50 08/23/18 17:21 Lab Scanned Report REFERENCE LAB Bedside Glucose 241 H 149 Medications Medication Current Medications Dextrose (D50w Syringe) ONCE PRN IV DECREASED GLUCOSE Last administered on 08/15/18 23:48; Admin Dose 50 ML; Start 08/15/18 at 23:00 Zolpidem Tartrate (Ambien) 5 mg HS PRN PO INSOMNIA Last administered on 08/21/18 21:01; Admin Dose 5 MG; Start 08/16/18 at 02:30 Atropine Sulfate (Atropine 1% Oph) 1 drop BID BOTH EYES Last administered on 08/23/18 08:53; Admin Dose 1 DROP; Start 08/16/18 at 09:00 Losartan Potassium (Cozaar) 50 mg DAILY PO Last administered on 08/23/18 08:53; Admin Dose 50 MG; Start 08/16/18 at 09:00 Clonidine (Catapres) 0.1 mg Q4H PRN PO ELEVATED BLOOD PRESSURE Last administer ed on 08/22/18 00:49; Admin Dose 0.1 MG; Start 08/16/18 at 08:30 Isosorbide Mononitrate (Imdur) 60 mg DAILY PO Last administered on 08/23/18 08:52; Admin Dose 60 MG; Start 08/16/18 at 11:00 Heparin Sodium (Porcine) (Heparin (1000 Units/ml)) 4,000 unit AFTER DIALYSIS CATHETER Last administered on 08/22/18 12:20; Admin Dose 4,000 UNIT; Start 08/16/18 at 12:30 Albumin Human 100 ml @ 100 mls/hr WITH DIALYSIS PRN IV SBP <90 DURING DIALYSIS; Start 08/16/18 at 12:30 Sodium Chloride (NS) -To prime the dialy... DIRECTED FOR HD PRN IV HD; Start 08/16/18 at 12:30 Nifedipine (Procardia Xl) 60 mg BID PO Last administered on 08/23/18at 08:52; Admin Dose 60 MG; Start 08/16/18 at 21:00 Famotidine (Pepcid) 20 mg QHS PO Last administered on 08/22/18at 21:17; Admin Dose 20 MG; Start 08/17/18 at 21:00 Minoxidil (Loniten) 5 mg BID PO Last administered on 08/23/18at 08:52; Admin Dose 5 MG; Start 08/17/18 at 21:00 Acetaminophen (Tylenol Tab) 650 mg Q6H PRN PO MILD PAIN(1-3)OR ELEVATED TEMP Last administered on 08/18/18at 10:26; Admin Dose 650 MG; Start 08/18/18 at 10:30 Diagnostic Test (Pha) (Accu-Chek) 1 ea 02 XX Last administered on 08/23/18at 02:14; Admin Dose 1 EA; Start 08/19/18 at 02:00 Insulin Aspart (Novolog Insulin Pen) NOVOLOG *MILD* ALGORITHM WITH MEALS BEDTIME SC Last administered on 08/23/18at 17:29; Admin Dose 1 UNIT; Start 08/18/18 at 12:00 Miscellaneous Information 1 ea NOTE XX ; Start 08/18/18 at 10:30 Glucose (Glutose) 15 gm Q15M PRN PO DECREASED GLUCOSE; Start 08/18/18 at 10:30 Glucose (Glutose) 22.5 gm Q15M PRN PO DECREASED GLUCOSE; Start 08/18/18 at 10:30 Dextrose (D50w Syringe) 25 ml Q15M PRN IV DECREASED GLUCOSE; Start 08/18/18 at 10:30 Dextrose (D50w Syringe) 50 ml Q15M PRN IV DECREASED GLUCOSE; Start 08/18/18 at 10:30 Glucagon (Glucagen) 1 mg Q15M PRN IM DECREASED GLUCOSE; Start 08/18/18 at 10:30 Glucose (Glutose) 15 gm Q15M PRN BUCCAL DECREASED GLUCOSE; Start 08/18/18 at 10:30 Hydroxyzine HCl (Atarax) 25 mg Q6H PRN PO ITCHING Last administered on 08/22/18at 10:36; Admin Dose 25 MG; Start 08/22/18 at 10:00 Labetalol HCl (Normodyne) 400 mg BID PO ; Start 08/23/18 at 21:00 VALERIA RODRÍGUEZ MD Aug 23, 2018 18:24
[2018-08-23] MEDS ORDERED: NA POLYST SULFON 15 GM/60 ML BTL PO ONE (20:00)
[2018-08-23] MEDS: FAMOTIDINE 20 MG TAB PO SCH (20:13)
[2018-08-23] MEDS ORDERED: SODIUM POLYSTYRENE 15 GM KIT (POWDER + SORBITOL) PO ONE (21:00)
[2018-08-24] VITALS (26 sets, daily range): BP systolic 107–164; BP diastolic 56–73; PULSE 59–75; RESP 18–22
[2018-08-24] MEDS: ACCU-CHEK XX SCH (01:59)
[2018-08-24] MEDS: INSULIN ASPART [NOVOLOG] 3 ML PEN SC SCH ×4 (08:00→20:08)
--- NOTE | 2018-08-24 08:48 | CONS ---
Assessment/Plan Assessment/Plan Assessment/Plan (Daily) 1. acute hyperkalemia - resolved now 2. ESRD on HD MWF 3. accelerateD HTN - improving BP control 4. acute chest pain 5.type II DM with hyperglycemia 6. H/o HTN Plan: Nifedipine 60mg pO BID, S/p HD TODAY 2.5 L removed, Afebrile, BP stable IV abx as per ID will follow u Consultation Date/Type/Reason Admit Date/Time Aug 16, 2018 at 00:15 Initial Consult Date 08/16/18 Type of Consult NEPHROLOGY Requesting Provider: HARMONY PETERSON MD Date/Time of Note DATE: 08/24/18 TIME: 08:48 Exam/Review of Systems Exam Vitals Vital Signs Date Temp Pulse Resp B/P (MAP) Pulse Ox O2 O2 Flow FiO2 Time Delivery Rate 08/24/18 97.6 61 22 151/65 96 Room Air 07:59 (93) Intake and Output 08/23/18 08/23/18 08/24/18 1515:00 23:00 07:00 IntakeIntake Total 850 ml 400 ml BalanceBalance 850 ml 400 ml Exam Constitutional: alert, awake, no acute distress Respiratory: clear to auscultation, normal air movement, diminished breath sounds Cardiovascular: regular rate and rhythm, nl pulses Gastrointestinal: soft, non-tender Musculoskeletal: muscle tone, swelling Extremities: normal pulses 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: HOT WORKER II-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 intact, nl mental status, nl speech, nl strength Lymph: nl lymph nodes Results Result Diagram: 08/24/18 0538 08/24/18 0538 Results 24hrs Laboratory Tests Test 08/23/18 08:49 08/23/18 11:40 08/23/18 11:50 08/23/18 17:21 Bedside Glucose 85 241 H 149 Lab Scanned Report REFERENCE LAB Test 08/23/18 20:16 08/24/18 01:44 08/24/18 05:38 08/24/18 07:54 Bedside Glucose 183 130 83 White Blood Count 4.0 #L Red Blood Count 3.79 L Hemoglobin 11.0 L Hematocrit 33.1 L Mean Corpuscular 87.3 Volume Mean Corpuscular 29.0 Hemoglobin Mean Corpuscular 33.2 Hemoglobin Concent Red Cell Distribution 13.4 Width Platelet Count 149 # Mean Platelet Volume 10.6 H Immature Granulocytes 0.000 L % Neutrophils % 52.2 Lymphocytes % 23.7 Monocytes % 10.4 Eosinophils % 13.4 H Basophils % 0.3 Nucleated Red Blood 0.0 Cells % Immature Granulocytes 0.000 # Neutrophils # 2.1 Lymphocytes # 0.9 Monocytes # 0.4 Eosinophils # 0.5 Basophils # 0.0 Nucleated Red Blood 0.0 Cells # Sodium Level 134 L Potassium Level 6.0 H Chloride Level 95 L Carbon Dioxide Level 20 L Anion Gap 19 H Blood Urea Nitrogen 85 H Creatinine 11.12 #H Est Glomerular 5 L Filtrat Rate mL/min Glucose Level 99 Calcium Level 6.8 L Medications Medication Current Medications Dextrose (D50w Syringe) ONCE PRN IV DECREASED GLUCOSE Last administered on 08/15/18 23:48; Admin Dose 50 ML; Start 08/15/18 at 23:00 Zolpidem Tartrate (Ambien) 5 mg HS PRN PO INSOMNIA Last administered on 21:01; Admin Dose 5 MG; Start 08/16/18 at 02:30 Atropine Sulfate (Atropine 1% Oph) 1 drop BID BOTH EYES Last administered on 08/23/18 20:14; Admin Dose 1 DROP; Start 08/16/18 at 09:00 Losartan Potassium (Cozaar) 50 mg DAILY PO Last administered on 08/23/18 08:53; Admin Dose 50 MG; Start 08/16/18 at 09:00 Clonidine (Catapres) 0.1 mg Q4H PRN PO ELEVATED BLOOD PRESSURE Last administered on 08/23/18 20:13; Admin Dose 0.1 MG; Start 08/16/18 at 08:30 Isosorbide Mononitrate (Imdur) 60 mg DAILY PO Last administered on 08/23/18 08:52; Admin Dose 60 MG; Start 08/16/18 at 11:00 Heparin Sodium (Porcine) (Heparin (1000 Units/ml)) 4,000 unit AFTER DIALYSIS CATHETER Last administered on 08/22/18 12:20; Admin Dose 4,000 UNIT; Start 08/16/18 at 12:30 Albumin Human 100 ml @ 100 mls/hr WITH DIALYSIS PRN IV SBP <90 DURING DIALYSIS; Start 08/16/18 at 12:30 Sodium Chloride (NS) -To prime the dialy... DIRECTED FOR HD PRN IV HD; Start 08/16/18 at 12:30 Nifedipine (Procardia Xl) 60 mg BID PO Last administered on 08/23/18 20:13; Admin Dose 60 MG; Start 08/16/18 at 21:00 Famotidine (Pepcid) 20 mg QHS PO Last administered on 08/23/18 20:13; Admin Dose 20 MG; Start 08/17/18 at 21:00 Minoxidil (Loniten) 5 mg BID PO Last administered on 08/23/18 20:13; Admin Dose 5 MG; Start 08/17/18 at 21:00 Acetaminophen (Tylenol Tab) 650 mg Q6H PRN PO MILD PAIN(1-3)OR ELEVATED TEMP Last administered on 08/18/18 10:26; Admin Dose 650 MG; Start 08/18/18 at 10:30 Diagnostic Test (Pha) (Accu-Chek) 1 ea 02 XX Last administered on 08/24/18at 01:59; Admin Dose 1 EA; Start 08/19/18 at 02:00 Insulin Aspart (Novolog Insulin Pen) NOVOLOG *MILD* ALGORITHM WITH MEALS BEDTIME SC Last administered on 08/23/18 20:24; Admin Dose 1 UNIT; Start 08/18/18 at 12:00 Miscellaneous Information 1 ea NOTE XX ; Start 08/18/18 at 10:30 Glucose (Glutose) 15 gm Q15M PRN PO DECREASED GLUCOSE; Start 08/18/18 at 10:30 Glucose (Glutose) 22.5 gm Q15M PRN PO DECREASED GLUCOSE; Start 08/18/18 at 10:30 Dextrose (D50w Syringe) 25 ml Q15M PRN IV DECREASED GLUCOSE; Start 08/18/18 at 10:30 Dextrose (D50w Syringe) 50 ml Q15M PRN IV DECREASED GLUCOSE; Start 08/18/18 at 10:30 Glucagon (Glucagen) 1 mg Q15M PRN IM DECREASED GLUCOSE; Start 08/18/18 at 10:30 Glucose (Glutose) 15 gm Q15M PRN BUCCAL DECREASED GLUCOSE; Start 08/18/18 at 10:30 Hydroxyzine HCl (Atarax) 25 mg Q6H PRN PO ITCHING Last administered on 08/22/18at 10:36; Admin Dose 25 MG; Start 08/22/18 at 10:00 Labetalol HCl (Normodyne) 400 mg BID PO Last administered on 08/23/18at 23:07; Admin Dose 400 MG; Start 08/23/18 at 21:00 VALERIA RODRÍGUEZ MD Aug 24, 2018 08:48
--- NOTE | 2018-08-24 09:55 | CONS ---
Assessment/Plan Assessment/Plan Assessment/Plan (Daily) Assessment recommendations; 1. Patient admitted with shortness of breath likely due to some element of pulmonary edema with incidental discovery of right lower lobe lung nodule status post biopsy revealing organizing pneumonia with acute inflammation. 2. Possibly some element of pneumonia, patient off systemic antibiotics. 3. Chronic renal failure, on hemodialysis. 4. History of hypertension. 5. Chronic anemia. 6. Mild thrombocytopenia. 7. History of prior CABG. Continue current supportive care. Obtain follow-up CT chest without contrast in 6 weeks time to ensure resolution of right lower lobe lung mass. Consultation Date/Type/Reason Admit Date/Time Aug 16, 2018 at 00:15 Initial Consult Date 08/17/18 Type of Consult Pulmonary Patient's condition is stable. Denies any shortness of breath, coughing, chest pain, any sputum production or wheezing. General exam; middle-aged male, getting hemodialysis at bedside. Currently no distress. Requesting Provider: HARMONY PETERSON MD Date/Time of Note DATE: 08/24/18 TIME: 09:53 24 HR Interval Summary Free Text/Dictation Patient's condition is stable. Denies any chest pain, coughing, wheezing, shortness of breath. General exam; middle-aged male, currently no distress. Awake and alert. Exam/Review of Systems Exam Vitals Vital Signs Date Temp Pulse Resp B/P (MAP) Pulse Ox O2 O2 Flow FiO2 Time Delivery Rate 08/24/18 62 09:28 08/24/18 20 151/65 96 Room Air 08:10 (93) 08/24/18 97.6 07:59 Intake and Output 08/23/18 08/23/18 08/24/18 1515:00 23:00 07:00 IntakeIntake Total 850 ml 400 ml BalanceBalance 850 ml 400 ml Exam H EENT exam; supple neck, no JVD. No lymphadenopathy. Midline trachea. No thyromegaly. Patient has left corneal opacity. Chest exam; diminished but clear breath sounds. S1-S2 audible, no murmurs. Regular rhythm. There is a well-healed sternal scar. Abdomen exam; soft, nontender. No organomegaly. Bowel sounds audible. Extremity exam; no peripheral edema clubbing. VALVE FITTER exam; no focal deficit. Results Result Diagram: 08/24/18 0538 08/24/1838 Results 24hrs Laboratory Tests Test 08/23/18 11:40 08/23/18 11:50 08/23/18 17:21 08/23/18 20:16 Lab Scanned Report REFERENCE LAB Bedside Glucose 241 H 149 183 Test 08/24/18 01:44 08/24/18 05:38 08/24/18 07:54 Bedside Glucose 130 83 White Blood Count 4.0 #L Red Blood Count 3.79 L Hemoglobin 11.0 L Hematocrit 33.1 L Mean Corpuscular 87.3 Volume Mean Corpuscular 29.0 Hemoglobin Mean Corpuscular 33.2 Hemoglobin Concent Red Cell Distribution 13.4 Width Platelet Count 149 # Mean Platelet Volume 10.6 H Immature Granulocytes 0.000 L % Neutrophils % 52.2 Lymphocytes % 23.7 Monocytes % 10.4 Eosinophils % 13.4 H Basophils % 0.3 Nucleated Red Blood 0.0 Cells % Immature Granulocytes 0.000 # Neutrophils # 2.1 Lymphocytes # 0.9 Monocytes # 0.4 Eosinophils # 0.5 Basophils # 0.0 Nucleated Red Blood 0.0 Cells # Sodium Level 134 L Potassium Level 6.0 H Chloride Level 95 L Carbon Dioxide Level 20 L Anion Gap 19 H Blood Urea Nitrogen 85 H Creatinine 11.12 #H Est Glomerular 5 L Filtrat Rate mL/min Glucose Level 99 Calcium Level 6.8 L Medications Medication Current Medications Dextrose (D50w Syringe) ONCE PRN IV DECREASED GLUCOSE Last administered on 08/15/18 23:48; Admin Dose 50 ML; Start 08/15/18 at 23:00 Zolpidem Tartrate (Ambien) 5 mg HS PRN PO INSOMNIA Last administered on 08/21/18 21:01; Admin Dose 5 MG; Start 08/16/18 at 02:30 Atropine Sulfate (Atropine 1% Oph) 1 drop BID BOTH EYES Last administered on 08/23/18 20:14; Admin Dose 1 DROP; Start 08/16/18 at 09:00 Losartan Potassium (Cozaar) 50 mg DAILY PO Last administered on 08/23/18 08:53; Admin Dose 50 MG; Start 08/16/18 at 09:00 Clonidine (Catapres) 0.1 mg Q4H PRN PO ELEVATED BLOOD PRESSURE Last administered on 08/23/18 20:13; Admin Dose 0.1 MG; Start 08/16/18 at 08:30 Isosorbide Mononitrate (Imdur) 60 mg DAILY PO Last administered on 08/23/18 08:52; Admin Dose 60 MG; Start 08/16/18 at 11:00 Heparin Sodium (Porcine) (Heparin (1000 Units/ml)) 4,000 unit AFTER DIALYSIS CATHETER Last administered on 08/22/18 12:20; Admin Dose 4,000 UNIT; Start 08/16/18 at 12:30 Albumin Human 100 ml @ 100 mls/hr WITH DIALYSIS PRN IV SBP <90 DURING DIALYSIS; Start 08/16/18 at 12:30 Sodium Chloride (NS) -To prime the dialy... DIRECTED FOR HD PRN IV HD; Start 08/16/18 at 12:30 Nifedipine (Procardia Xl) 60 mg BID PO Last administered on 08/23/18 20:13; Admin Dose 60 MG; Start 08/16/18 at 21:00 Famotidine (Pepcid) 20 mg QHS PO Last administered on 08/23/18 20:13; Admin Dose 20 MG; Start 08/17/18 at 21:00 Minoxidil (Loniten) 5 mg BID PO Last administered on 08/23/18 20:13; Admin Dose 5 MG; Start 08/17/18 at 21:00 Acetaminophen (Tylenol Tab) 650 mg Q6H PRN PO MILD PAIN(1-3)OR ELEVATED TEMP Last administered on 08/18/18 10:26; Admin Dose 650 MG; Start 08/18/18 at 10:30 Diagnostic Test (Pha) (Accu-Chek) 1 ea 02 XX Last administered on 08/24/18 01:59; Admin Dose 1 EA; Start 08/19/18 at 02:00 Insulin Aspart (Novolog Insulin Pen) NOVOLOG *MILD* ALGORITHM WITH MEALS BEDTIME SC Last administered on 08/23/18 20:24; Admin Dose 1 UNIT; Start 08/18/18 at 12:00 Miscellaneous Information 1 ea NOTE XX ; Start 08/18/18 at 10:30 Glucose (Glutose) 15 gm Q15M PRN PO DECREASED GLUCOSE; Start 08/18/18 at 10:30 Glucose (Glutose) 22.5 gm Q15M PRN PO DECREASED GLUCOSE; Start 08/18/18 at 10:30 Dextrose (D50w Syringe) 25 ml Q15M PRN IV DECREASED GLUCOSE; Start 08/18/18 at 10:30 Dextrose (D50w Syringe) 50 ml Q15M PRN IV DECREASED GLUCOSE; Start 08/18/18 at 10:30 Glucagon (Glucagen) 1 mg Q15M PRN IM DECREASED GLUCOSE; Start 08/18/18 at 10:30 Glucose (Glutose) 15 gm Q15M PRN BUCCAL DECREASED GLUCOSE; Start 08/18/18 at 10:30 Hydroxyzine HCl (Atarax) 25 mg Q6H PRN PO ITCHING Last administered on 08/22/18at 10:36; Admin Dose 25 MG; Start 08/22/18 at 10:00 Labetalol HCl (Normodyne) 400 mg BID PO Last administered on 08/23/18at 23:07; Admin Dose 400 MG; Start 08/23/18 at 21:00 JANES DOMINGO Aug 24, 2018 09:55
--- NOTE | 2018-08-24 10:43 | PN ---
Date/Time of Note Date/Time of Note DATE: 08/24/18 TIME: 10:37 Assessment/Plan VTE Prophylaxis Risk score (from Ns)>0 risk: 3 SCD applied (from Nsg): Yes Pharmacological prophylaxis: heparin Lines/Catheters IV Catheter Type (from Nrs): Permacath Urinary Cath still in place: No Assessment/Plan Hospital Course Patient episode of elevated blood pressure and systolic blood pressure of 200, blood pressure is stable now, patient is undergoing hemodialysis, denies diarrhea, denies shortness of breath. Assessment/Plan - LLL mass, s/p biopsy, pathology revealed organizing pneumonia with foci of acute inflammation. Continue antibiotics for per ID. The patient is being followed by Dr. Shine. The patient has extensive workup ordered including QuantiFERON TB, Gold cocci, etc. Once infectious disease gives clearance the patient will be started on steroids at 1 mg/kg per day for a slow taper over 6 months as recommended by the special certificate dictator. - HTN - DM - CAD, Hx of CABG - ESRD on HD - Legal blindness. No acute issue. Further recommendations based on clinical course. Plan of care discussed with Dr. Reagan. Result Diagram: 08/24/1838 08/24/1838 Results 24hrs Laboratory Tests Test 08/23/18 11:40 08/23/18 11:50 08/23/18 17:21 08/23/18 20:16 Lab Scanned Report REFERENCE LAB Bedside Glucose 241 H 149 183 Test 08/24/18 01:44 08/24/18 05:38 08/24/18 07:54 Bedside Glucose 130 83 White Blood Count 4.0 #L Red Blood Count 3.79 L Hemoglobin 11.0 L Hematocrit 33.1 L Mean Corpuscular 87.3 Volume Mean Corpuscular 29.0 Hemoglobin Mean Corpuscular 33.2 Hemoglobin Concent Red Cell Distribution 13.4 Width Platelet Count 149 # Mean Platelet Volume 10.6 H Immature Granulocytes 0.000 L % Neutrophils % 52.2 Lymphocytes % 23.7 Monocytes % 10.4 Eosinophils % 13.4 H Basophils % 0.3 Nucleated Red Blood 0.0 Cells % Immature Granulocytes 0.000 # Neutrophils # 2.1 Lymphocytes # 0.9 Monocytes # 0.4 Eosinophils # 0.5 Basophils # 0.0 Nucleated Red Blood 0.0 Cells # Sodium Level 134 L Potassium Level 6.0 H Chloride Level 95 L Carbon Dioxide Level 20 L Anion Gap 19 H Blood Urea Nitrogen 85 H Creatinine 11.12 #H Est Glomerular 5 L Filtrat Rate mL/min Glucose Level 99 Calcium Level 6.8 L Exam/Review of Systems Exam Vitals Vital Signs Date Temp Pulse Resp B/P (MAP) Pulse Ox O2 O2 Flow FiO2 Time Delivery Rate 08/24/18 60 10:13 08/24/18 20 151/65 96 Room Air 08:10 (93) 08/24/18 97.6 07:59 Intake and Output 08/23/18 08/23/18 08/24/18 1515:00 23:00 07:00 IntakeIntake Total 850 ml 400 ml BalanceBalance 850 ml 400 ml Exam Constitutional: alert, oriented Neck: supple Respiratory: diminished breath sounds Cardiovascular: regular rate and rhythm Gastrointestinal: soft, non-tender Musculoskeletal: nl extremities to inspection Extremities: normal pulses Results Results 24hrs Laboratory Tests Test 08/23/18 11:40 08/23/18 11:50 08/23/18 17:21 08/23/18 20:16 Lab Scanned Report REFERENCE LAB Bedside Glucose 241 H 149 183 Test 08/24/18 01:44 08/24/18 05:38 08/24/18 07:54 Bedside Glucose 130 83 White Blood Count 4.0 #L Red Blood Count 3.79 L Hemoglobin 11.0 L Hematocrit 33.1 L Mean Corpuscular 87.3 Volume Mean Corpuscular 29.0 Hemoglobin Mean Corpuscular 33.2 Hemoglobin Concent Red Cell Distribution 13.4 Width Platelet Count 149 # Mean Platelet Volume 10.6 H Immature Granulocytes 0.000 L % Neutrophils % 52.2 Lymphocytes % 23.7 Monocytes % 10.4 Eosinophils % 13.4 H Basophils % 0.3 Nucleated Red Blood 0.0 Cells % Immature Granulocytes 0.000 # Neutrophils # 2.1 Lymphocytes # 0.9 Monocytes # 0.4 Eosinophils # 0.5 Basophils # 0.0 Nucleated Red Blood 0.0 Cells # Sodium Level 134 L Potassium Level 6.0 H Chloride Level 95 L Carbon Dioxide Level 20 L Anion Gap 19 H Blood Urea Nitrogen 85 H Creatinine 11.12 #H Est Glomerular 5 L Filtrat Rate mL/min Glucose Level 99 Calcium Level 6.8 L Medications Medication Current Medications Dextrose (D50w Syringe) ONCE PRN IV DECREASED GLUCOSE Last administered on 08/15/18 23:48; Admin Dose 50 ML; Start 08/15/18 at 23:00 Zolpidem Tartrate (Ambien) 5 mg HS PRN PO INSOMNIA Last administered on 08/21/18 21:01; Admin Dose 5 MG; Start 08/16/18 at 02:30 Atropine Sulfate (Atropine 1% Oph) 1 drop BID BOTH EYES Last administered on 08/23/18 20:14; Admin Dose 1 DROP; Start 08/16/18 at 09:00 Losartan Potassium (Cozaar) 50 mg DAILY PO Last administered on 08/23/18 08:53; Admin Dose 50 MG; Start 08/16/18 at 09:00 Clonidine (Catapres) 0.1 mg Q4H PRN PO ELEVATED BLOOD PRESSURE Last administered on 08/23/18 20:13; Admin Dose 0.1 MG; Start 08/16/18 at 08:30 Isosorbide Mononitrate (Imdur) 60 mg DAILY PO Last administered on 08/23/18 08:52; Admin Dose 60 MG; Start 08/16/18 at 11:00 Heparin Sodium (Porcine) (Heparin (1000 Units/ml)) 4,000 unit AFTER DIALYSIS CATHETER Last administered on 08/22/18 12:20; Admin Dose 4,000 UNIT; Start 08/16/18 at 12:30 Albumin Human 100 ml @ 100 mls/hr WITH DIALYSIS PRN IV SBP <90 DURING DIALYSIS; Start 08/16/18 at 12:30 Sodium Chloride (NS) -To prime the dialy... DIRECTED FOR HD PRN IV HD; Start 08/16/18 at 12:30 Nifedipine (Procardia Xl) 60 mg BID PO Last administered on 08/23/18 20:13; Admin Dose 60 MG; Start 08/16/18 at 21:00 Famotidine (Pepcid) 20 mg QHS PO Last administered on 08/23/18 20:13; Admin Dose 20 MG; Start 08/17/18 at 21:00 Minoxidil (Loniten) 5 mg BID PO Last administered on 08/23/18 20:13; Admin Dose 5 MG; Start 08/17/18 at 21:00 Acetaminophen (Tylenol Tab) 650 mg Q6H PRN PO MILD PAIN(1-3)OR ELEVATED TEMP Last administered on 08/18/18at 10:26; Admin Dose 650 MG; Start 08/18/18 at 10:30 Diagnostic Test (Pha) (Accu-Chek) 1 ea 02 XX Last administered on 08/24/18at 01:59; Admin Dose 1 EA; Start 08/19/18 at 02:00 Insulin Aspart (Novolog Insulin Pen) NOVOLOG *MILD* ALGORITHM WITH MEALS BEDTIME SC Last administered on 08/23/18at 20:24; Admin Dose 1 UNIT; Start 08/18/18 at 12:00 Miscellaneous Information 1 ea NOTE XX ; Start 08/18/18 at 10:30 Glucose (Glutose) 15 gm Q15M PRN PO DECREASED GLUCOSE; Start 08/18/18 at 10:30 Glucose (Glutose) 22.5 gm Q15M PRN PO DECREASED GLUCOSE; Start 08/18/18 at 10:30 Dextrose (D50w Syringe) 25 ml Q15M PRN IV DECREASED GLUCOSE; Start 08/18/18 at 10:30 Dextrose (D50w Syringe) 50 ml Q15M PRN IV DECREASED GLUCOSE; Start 08/18/18 at 10:30 Glucagon (Glucagen) 1 mg Q15M PRN IM DECREASED GLUCOSE; Start 08/18/18 at 10:30 Glucose (Glutose) 15 gm Q15M PRN BUCCAL DECREASED GLUCOSE; Start 08/18/18 at 10:30 Hydroxyzine HCl (Atarax) 25 mg Q6H PRN PO ITCHING Last administered on 08/22/18at 10:36; Admin Dose 25 MG; Start 08/22/18 at 10:00 Labetalol HCl (Normodyne) 400 mg BID PO Last administered on 08/23/18at 23:07; Admin Dose 400 MG; Start 08/23/18 at 21:00 MARGARITO DAMICO Aug 24, 2018 10:43
--- NOTE | 2018-08-24 11:23 | CONS ---
Consult Date/Type/Reason Admit Date/Time Aug 16, 2018 at 00:15 Initial Consult Date 08/16/18 Type of Consultation: CV Requesting Provider: HARMONY PETERSON MD Date/Time of Note DATE: 08/24/18 TIME: 11:22 Subjective Cardiology follow-up progress note Subjective: Discussed with the staff telemetry was reviewed patient with normal sinus rhythm/sinus bradycardia Patient with no chest pain or pressure. HE denies bleeding to me No cough now pt is on HD now Objective: General: no acute distress HEENT: NC/AT. . NECK: NO JVD. no stridor. CV: RRR. systolic murmur; no gallop or rubs. PULM: no wheezing or rhonchi. GI: SOFT, NT, ND, no rebound or guarding Extremity: trace B/L LE edema. no clubbing. neuro: awake and alert, OX3. Psych: calm and pleasant rectal: deferred : normal EKG was personally within normal sinus rhythm nonspecific ST abnormalities Chest x-ray shows: Mild cardiomegaly. Mild pulmonary vascular congestion. Calcified aorta consistent with atherosclerotic disease. 3.8 cm right lower lobe nodular opacity. Follow-up CT chest is recommended. Echocardiogram done 08/16/2018 shows: Normal left ventricular systolic function. Normal left ventricular cavity size. Ejection fraction is visually estimated at 60 %. Tissue Doppler/Mitral Doppler indices are consistent with impaired relaxation (Stage I diastolic dysfunction). Mild mitral leaflet calcification. Mild mitral annular calcification. Mild mitral valve regurgitation. No significant aortic stenosis or insufficiency. Aortic cusps appear mildly calcified. Normal appearance of the tricuspid valve. Estimated peak PA systolic pressure 36 mmHg. There is mild tricuspid regurgitation. CT of the chest on 08/13/2018 shows: Multiple nodular densities are seen within the right lower lobe and this corresponds to the abnormality on prior chest radiograph. There is also a nodule in the left lower lobe. These could represent infectious nodular opacities or could represent neoplastic lesions. This can be correlated with clinical findin gs and biopsy may be considered as clinically warranted. Follow-up CT is recommended after 3 months. Renal atrophy is present with mild cardiomegaly and faint pulmonary edema. Atherosclerotic disease is present. There is a fecal filled colon with diverticulosis. Objective Vitals Vital Signs Date Temp Pulse Resp B/P (MAP) Pulse Ox O2 O2 Flow FiO2 Time Delivery Rate 08/24/18 64 10:58 08/24/18 20 151/65 96 Room Air 08:10 (93) 08/24/18 97.6 07:59 Intake and Output 08/23/18 08/23/18 08/24/18 1515:00 23:00 07:00 IntakeIntake Total 850 ml 400 ml BalanceBalance 850 ml 400 ml Results/Medications Result Diagram: 08/24/18 0538 08/24/18 0538 Results 24 hrs Laboratory Tests Test 08/23/18 11:40 08/23/18 11:50 08/23/18 17:21 08/23/18 20:16 Lab Scanned Report REFERENCE LAB Bedside Glucose 241 H 149 183 Test 08/24/18 01:44 08/24/18 05:38 08/24/18 07:54 Bedside Glucose 130 83 White Blood Count 4.0 #L Red Blood Count 3.79 L Hemoglobin 11.0 L Hematocrit 33.1 L Mean Corpuscular 87.3 Volume Mean Corpuscular 29.0 Hemoglobin Mean Corpuscular 33.2 Hemoglobin Concent Red Cell Distribution 13.4 Width Platelet Count 149 # Mean Platelet Volume 10.6 H Immature Granulocytes 0.000 L % Neutrophils % 52.2 Lymphocytes % 23.7 Monocytes % 10.4 Eosinophils % 13.4 H Basophils % 0.3 Nucleated Red Blood 0.0 Cells % Immature Granulocytes 0.000 # Neutrophils # 2.1 Lymphocytes # 0.9 Monocytes # 0.4 Eosinophils # 0.5 Basophils # 0.0 Nucleated Red Blood 0.0 Cells # Sodium Level 134 L Potassium Level 6.0 H Chloride Level 95 L Carbon Dioxide Level 20 L Anion Gap 19 H Blood Urea Nitrogen 85 H Creatinine 11.12 #H Est Glomerular 5 L Filtrat Rate mL/min Glucose Level 99 Calcium Level 6.8 L Home Meds Reported Medications Nifedipine* (Nifedipine ER*) 90 Mg Tablet.er, 90 MG PO DAILY, TAB 08/15/18 Carvedilol* (Carvedilol*) 6.25 Mg Tablet, 6.25 MG PO BID, #60 TAB 08/15/18 Isosorbide Mononitrate* (Isosorbide Mononitrate*) 60 Mg Tab.er.24h, 60 MG PO DAILY, TAB 08/15/18 Losartan Potassium* (Losartan Potassium*) 50 Mg Tablet, 50 MG PO DAILY, TAB 08/15/18 Minoxidil* (Lonitin*) 2.5 Mg Tab, 2.5 MG PO BID, TAB 08/15/18 Famotidine* (Famotidine*) 20 Mg Tablet, 20 MG PO BID, #60 TAB 08/15/18 Atropine Sulfate/0.9 %Sod Chlr (Atropine 0.01%-Ns Eye Drops) 10 Ml Drops, 15 ML OP BID, BOTTLE 08/15/18 Tamsulosin Hcl* (Tamsulosin Hcl*) 0.4 Mg Cap.er.24h, 0.4 MG PO DAILY, CAP 08/15/18 Clonidine Hcl* (Clonidine Hcl*) 0.1 Mg Tab, 0.2 MG PO BID PRN for ELEVATED BLOOD PRESSURE, TAB 08/15/18 Sevelamer Carbonate* (Renvela*) 800 Mg Tablet, 0.8 GM PO WITH MEALS, TAB 08/15/18 Medications Current Medications Dextrose (D50w Syringe) ONCE PRN IV DECREASED GLUCOSE Last administered on 08/15/18 23:48; Admin Dose 50 ML; Start 08/15/18 at 23:00 Zolpidem Tartrate (Ambien) 5 mg HS PRN PO INSOMNIA Last administered on 08/21/18 21:01; Admin Dose 5 MG; Start 08/16/18 at 02:30 Atropine Sulfate (Atropine 1% Oph) 1 drop BID BOTH EYES Last administered on 08/23/18 20:14; Admin Dose 1 DROP; Start 08/16/18 at 09:00 Losartan Potassium (Cozaar) 50 mg DAILY PO Last administered on 08/23/18 08:53; Admin Dose 50 MG; Start 08/16/18 at 09:00 Clonidine (Catapres) 0.1 mg Q4H PRN PO ELEVATED BLOOD PRESSURE Last administered on 08/23/18 20:13; Admin Dose 0.1 MG; Start 08/16/18 at 08:30 Isosorbide Mononitrate (Imdur) 60 mg DAILY PO Last administered on 08/23/18 08:52; Admin Dose 60 MG; Start 08/16/18 at 11:00 Heparin Sodium (Porcine) (Heparin (1000 Units/ml)) 4,000 unit AFTER DIALYSIS CATHETER Last administered on 08/22/18 12:20; Admin Dose 4,000 UNIT; Start 08/16/18 at 12:30 Albumin Human 100 ml @ 100 mls/hr WITH DIALYSIS PRN IV SBP <90 DURING DIALYSIS; Start 08/16/18 at 12:30 Sodium Chloride (NS) -To prime the dialy... DIRECTED FOR HD PRN IV HD; Start 08/16/18 at 12:30 Nifedipine (Procardia Xl) 60 mg BID PO Last administered on 08/23/18at 20:13; Admin Dose 60 MG; Start 08/16/18 at 21:00 Famotidine (Pepcid) 20 mg QHS PO Last administered on 08/23/18at 20:13; Admin Dose 20 MG; Start 08/17/18 at 21:00 Minoxidil (Loniten) 5 mg BID PO Last administered on 08/23/18 20:13; Admin Dose 5 MG; Start 08/17/18 at 21:00 Acetaminophen (Tylenol Tab) 650 mg Q6H PRN PO MILD PAIN(1-3)OR ELEVATED TEMP Last administered on 08/18/18at 10:26; Admin Dose 650 MG; Start 08/18/18 at 10:30 Diagnostic Test (Pha) (Accu-Chek) 1 ea 02 XX Last administered on 08/24/18at 01:59; Admin Dose 1 EA; Start 08/19/18 at 02:00 Insulin Aspart (Novolog Insulin Pen) NOVOLOG *MILD* ALGORITHM WITH MEALS BEDTIME SC Last administered on 08/23/18at 20:24; Admin Dose 1 UNIT; Start 08/18/18 at 12:00 Miscellaneous Information 1 ea NOTE XX ; Start 08/18/18 at 10:30 Glucose (Glutose) 15 gm Q15M PRN PO DECREASED GLUCOSE; Start 08/18/18 at 10:30 Glucose (Glutose) 22.5 gm Q15M PRN PO DECREASED GLUCOSE; Start 08/18/18 at 10:30 Dextrose (D50w Syringe) 25 ml Q15M PRN IV DECREASED GLUCOSE; Start 08/18/18 at 10:30 Dextrose (D50w Syringe) 50 ml Q15M PRN IV DECREASED GLUCOSE; Start 08/18/18 at 10:30 Glucagon (Glucagen) 1 mg Q15M PRN IM DECREASED GLUCOSE; Start 08/18/18 at 10:30 Glucose (Glutose) 15 gm Q15M PRN BUCCAL DECREASED GLUCOSE; Start 08/18/18 at 10:30 Hydroxyzine HCl (Atarax) 25 mg Q6H PRN PO ITCHING Last administered on 08/22/18at 10:36; Admin Dose 25 MG; Start 08/22/18 at 10:00 Labetalol HCl (Normodyne) 400 mg BID PO Last administered on 08/23/18at 23:07; Admin Dose 400 MG; Start 08/23/18 at 21:00 Assessment/Plan Hospital Course (Demo Recall) 1. Hypertensive urgency/resistant hypertension 2. History of coronary artery disease 3. 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 Renal failure on dialysis 5. Pulmonary vascular congestion/fluid overload 6. Diabetes 7. Dyslipidemia 8. Hyperkalemia 9. Pulmonary nodule Recommendations: Continue with the Procardia. cont labetalol and adjust as needed. Continue with minoxidil now at 5 bid Continue with losartan as long as okay with renal and hyperkalemia Clonidine will be continued as a as needed as well. Hemodialysis as per renal follow up with pulmonary recommendations Thank you for his referral. We will continue to follow along with you NAHUN RUSSELL MD [facility] NAHUN RUSSELL MD Aug 24, 2018 11:23
[2018-08-24] MEDS: HEPARIN 1000 UNITS/ML 10 ML INJ CATHETER SCH (11:27)
[2018-08-24] MEDS: ATROPINE 1% 5 ML OPH BOTH EYES SCH ×2 (12:30→20:06)
[2018-08-24] MEDS: ISOSORBIDE MONONITRATE(SR)60 MG TAB PO SCH (12:30)
[2018-08-24] MEDS: MINOXIDIL 2.5 MG TAB PO SCH ×2 (12:30→20:06)
[2018-08-24] MEDS: LOSARTAN 50 MG TAB PO SCH (12:31)
[2018-08-24] MEDS: NIFEdipine (XL) 60 MG TAB PO SCH ×2 (12:31→20:07)
[2018-08-24] MEDS: LABETALOL 200 MG TAB PO SCH ×2 (12:32→20:07)
--- NOTE | 2018-08-24 14:31 | CONS ---
Assessment/Plan Assessment/Plan Hospital Course (Demo Recall) #Multiple lung mass in RLL -CT guided bx reveals evidence of pneumonia #Pneumonia LLL mass, s/p biopsy, pathology revealed organizing pneumonia with foci of acute inflammation. -Continue antibiotics for per ID. -pt negative for TB and cocci - Once infectious disease gives clearance the patient will be started on steroids at 1 mg/kg per day for a slow taper over 6 months as recommended by the compliance specialist. - continue empiric PO vancomycin (08/21/2018-) #ESRD -continue HD per renal #HTN -continue BP meds Thank you for the opportunity to participate in this patients care A total of 40 minutes of face to face time was spent speaking with the patient, of which greater than 50% was spent in counseling and coordination of care and the detailed question and answer session. Consultation Date/Type/Reason Admit Date/Time Aug 16, 2018 at 00:15 Initial Consult Date 08/17/18 Type of Consult oncology Reason for Consultation pulmonary nodules Requesting Provider: HARMONY PETERSON MD Date/Time of Note DATE: 08/24/18 TIME: 14:28 24 HR Interval Summary Free Text/Dictation no acute overnight events.continues on antibiotics Exam/Review of Systems Exam Vitals Vital Signs Date Temp Pulse Resp B/P (MAP) Pulse Ox O2 O2 Flow FiO2 Time Delivery Rate 08/24/18 98.0 68 22 124/58 96 Nasal 12:03 (80) Cannula Intake and Output 08/23/18 08/23/18 08/24/18 1515:00 23:00 07:00 IntakeIntake Total 850 ml 400 ml BalanceBalance 850 ml 400 ml Constitutional: alert, oriented Psych: no complaints Head: normocephalic Eyes: nl conjunctiva, other (cataracts) ENMT: nl external ears & nose Neck: supple Respiratory: clear to auscultation Cardiovascular: regular rate and rhythm Gastrointestinal: soft Musculoskeletal: nl extremities to inspection Results Result Diagram: 08/24/18 0538 08/24/18 0538 Results 24hrs Laboratory Tests Test 08/23/18 17:21 08/23/18 20:16 08/24/18 01:44 08/24/18 05:38 Bedside Glucose 149 183 130 White Blood Count 4.0 #L Red Blood Count 3.79 L Hemoglobin 11.0 L Hematocrit 33.1 L Mean Corpuscular Volume 87.3 Mean Corpuscular 29.0 Hemoglobin Mean Corpuscular 33.2 Hemoglobin Concent Red Cell Distribution 13.4 Width Platelet Count 149 # Mean Platelet Volume 10.6 H Immature Granulocytes % 0.000 L Neutrophils % 52.2 Lymphocytes % 23.7 Monocytes % 10.4 Eosinophils % 13.4 H Basophils % 0.3 Nucleated Red Blood 0.0 Cells % Immature Granulocytes # 0.000 Neutrophils # 2.1 Lymphocytes # 0.9 Monocytes # 0.4 Eosinophils # 0.5 Basophils # 0.0 Nucleated Red Blood 0.0 Cells # Sodium Level 134 L Potassium Level 6.0 H Chloride Level 95 L Carbon Dioxide Level 20 L Anion Gap 19 H Blood Urea Nitrogen 85 H Creatinine 11.12 #H Est Glomerular Filtrat 5 L Rate mL/min Glucose Level 99 Calcium Level 6.8 L Test 08/24/18 07:54 08/24/18 11:23 Bedside Glucose 83 125 Medications Medication Current Medications Dextrose (D50w Syringe) ONCE PRN IV DECREASED GLUCOSE Last administered on 08/15/18 23:48; Admin Dose 50 ML; Start 08/15/18 at 23:00 Zolpidem Tartrate (Ambien) 5 mg HS PRN PO INSOMNIA Last administered on 08/21/18 21:01; Admin Dose 5 MG; Start 08/16/18 at 02:30 Atropine Sulfate (Atropine 1% Oph) 1 drop BID BOTH EYES Last administered on 08/24/18 12:30; Admin Dose 1 DROP; Start 08/16/18 at 09:00 Losartan Potassium (Cozaar) 50 mg DAILY PO Last administered on 08/24/18 12:31; Admin Dose 50 MG; Start 08/16/18 at 09:00 Clonidine (Catapres) 0.1 mg Q4H PRN PO ELEVATED BLOOD PRESSURE Last administered on 08/23/18 20:13; Admin Dose 0.1 MG; Start 08/16/18 at 08:30 Isosorbide Mononitrate (Imdur) 60 mg DAILY PO Last administered on 08/24/18 12:30; Admin Dose 60 MG; Start 08/16/18 at 11:00 Heparin Sodium (Porcine) (Heparin (1000 Units/ml)) 4,000 unit AFTER DIALYSIS CATHETER Last administered on 08/24/18 11:27; Admin Dose 4,000 UNIT; Start 08/16/18 at 12:30 Albumin Human 100 ml @ 100 mls/hr WITH DIALYSIS PRN IV SBP <90 DURING DIALYSIS; Start 08/16/18 at 12:30 Sodium Chloride (NS) -To prime the dialy... DIRECTED FOR HD PRN IV HD; Start 08/16/18 at 12:30 Nifedipine (Procardia Xl) 60 mg BID PO Last administered on 08/24/18at 12:31; Admin Dose 60 MG; Start 08/16/18 at 21:00 Famotidine (Pepcid) 20 mg QHS PO Last administered on 08/23/18at 20:13; Admin Dose 20 MG; Start 08/17/18 at 21:00 Minoxidil (Loniten) 5 mg BID PO Last administered on 08/24/18at 12:30; Admin Dose 5 MG; Start 08/17/18 at 21:00 Acetaminophen (Tylenol Tab) 650 mg Q6H PRN PO MILD PAIN(1-3)OR ELEVATED TEMP Last administered on 08/18/18at 10:26; Admin Dose 650 MG; Start 08/18/18 at 10:30 Diagnostic Test (Pha) (Accu-Chek) 1 ea 02 XX Last administered on 08/24/18at 01:59; Admin Dose 1 EA; Start 08/19/18 at 02:00 Insulin Aspart (Novolog Insulin Pen) NOVOLOG *MILD* ALGORITHM WITH MEALS BEDTIME SC Last administered on 08/23/18at 20:24; Admin Dose 1 UNIT; Start 08/18/18 at 12:00 Miscellaneous Information 1 ea NOTE XX ; Start 08/18/18 at 10:30 Glucose (Glutose) 15 gm Q15M PRN PO DECREASED GLUCOSE; Start 08/18/18 at 10:30 Glucose (Glutose) 22.5 gm Q15M PRN PO DECREASED GLUCOSE; Start 08/18/18 at 10:30 Dextrose (D50w Syringe) 25 ml Q15M PRN IV DECREASED GLUCOSE; Start 08/18/18 at 10:30 Dextrose (D50w Syringe) 50 ml Q15M PRN IV DECREASED GLUCOSE; Start 08/18/18 at 10:30 Glucagon (Glucagen) 1 mg Q15M PRN IM DECREASED GLUCOSE; Start 08/18/18 at 10:30 Glucose (Glutose) 15 gm Q15M PRN BUCCAL DECREASED GLUCOSE; Start 08/18/18 at 10:30 Hydroxyzine HCl (Atarax) 25 mg Q6H PRN PO ITCHING Last administered on 08/22/18at 10:36; Admin Dose 25 MG; Start 08/22/18 at 10:00 Labetalol HCl (Normodyne) 400 mg BID PO Last administered on 08/24/18at 12:32; Admin Dose 400 MG; Start 08/23/18 at 21:00 AMAYA MONDRAGON M.D. Aug 24, 2018 14:31
--- NOTE | 2018-08-24 16:02 | CONS ---
Assessment/Plan Assessment/Plan Hospital Course (Demo Recall) - organizing pneumonia based on Bx on 08/17/2018. nodular density of RLL on CXR 08/15/2018, multiple nodular densities within RLL, a nodule in LLL on CT 08/16/2018. s/p CT guided Bx on 08/17/2018, no e/o malignancy - URI, possible sinusitis, otitis. CT sinus on 08/16/2018 showed paranasal sinus mucosal disease. Pt took pip/tazo (08/15/2018-08/20/2018) - L retro-orbital pain and L corneal opacity (plus eye discharge according to Pt's RN's note), possible keratitis, improved - b/l blindness - DM - CAD - h/o NE - h/o CABG - ESRD on HD - dirrhea recommendations - pending results: tissue (fungal and AFB cultures), (Q TB gold negative, AFB smear of sputum was negative x3 and HIV test negative) Consultation Date/Type/Reason Admit Date/Time Aug 16, 2018 at 00:15 Initial Consult Date 08/17/18 Requesting Provider: HARMONY PETERSON MD Date/Time of Note DATE: 08/24/18 TIME: 16:01 Exam/Review of Systems Exam Vitals Vital Signs Date Temp Pulse Resp B/P (MAP) Pulse Ox O2 O2 Flow FiO2 Time Delivery Rate 08/24/18 98.0 68 22 124/58 96 Nasal 12:03 (80) Cannula Intake and Output 08/23/18 08/23/18 08/24/18 1515:00 23:00 07:00 IntakeIntake Total 850 ml 400 ml BalanceBalance 850 ml 400 ml Results Result Diagram: 08/24/18 0538 08/24/18 0538 Results 24hrs Laboratory Tests Test 08/23/18 17:21 08/23/18 20:16 08/24/18 01:44 08/24/18 05:38 Bedside Glucose 149 183 130 White Blood Count 4.0 #L Red Blood Count 3.79 L Hemoglobin 11.0 L Hematocrit 33.1 L Mean Corpuscular Volume 87.3 Mean Corpuscular 29.0 Hemoglobin Mean Corpuscular 33.2 Hemoglobin Concent Red Cell Distribution 13.4 Width Platelet Count 149 # Mean Platelet Volume 10.6 H Immature Granulocytes % 0.000 L Neutrophils % 52.2 Lymphocytes % 23.7 Monocytes % 10.4 Eosinophils % 13.4 H Basophils % 0.3 Nucleated Red Blood 0.0 Cells % Immature Granulocytes # 0.000 Neutrophils # 2.1 Lymphocytes # 0.9 Monocytes # 0.4 Eosinophils # 0.5 Basophils # 0.0 Nucleated Red Blood 0.0 Cells # Sodium Level 134 L Potassium Level 6.0 H Chloride Level 95 L Carbon Dioxide Level 20 L Anion Gap 19 H Blood Urea Nitrogen 85 H Creatinine 11.12 #H Est Glomerular Filtrat 5 L Rate mL/min Glucose Level 99 Calcium Level 6.8 L Test 08/24/18 07:54 08/24/18 11:23 Bedside Glucose 83 125 Medications Medication Current Medications Dextrose (D50w Syringe) ONCE PRN IV DECREASED GLUCOSE Last administered on 08/15/18 23:48; Admin Dose 50 ML; Start 08/15/18 at 23:00 Zolpidem Tartrate (Ambien) 5 mg HS PRN PO INSOMNIA Last administered on 08/21/18 21:01; Admin Dose 5 MG; Start 08/16/18 at 02:30 Atropine Sulfate (Atropine 1% Oph) 1 drop BID BOTH EYES Last administered on 08/24/18 12:30; Admin Dose 1 DROP; Start 08/16/18 at 09:00 Losartan Potassium (Cozaar) 50 mg DAILY PO Last administered on 08/24/18 12:31; Admin Dose 50 MG; Start 08/16/18 at 09:00 Clonidine (Catapres) 0.1 mg Q4H PRN PO ELEVATED BLOOD PRESSURE Last administered on 08/23/18 20:13; Admin Dose 0.1 MG; Start 08/16/18 at 08:30 Isosorbide Mononitrate (Imdur) 60 mg DAILY PO Last administered on 08/24/18 12:30; Admin Dose 60 MG; Start 08/16/18 at 11:00 Heparin Sodium (Porcine) (Heparin (1000 Units/ml)) 4,000 unit AFTER DIALYSIS CATHETER Last administered on 08/24/18 11:27; Admin Dose 4,000 UNIT; Start 08/16/18 at 12:30 Albumin Human 100 ml @ 100 mls/hr WITH DIALYSIS PRN IV SBP <90 DURING DIALYSIS; Start 08/16/18 at 12:30 Sodium Chloride (NS) -To prime the dialy... DIRECTED FOR HD PRN IV HD; Start 08/16/18 at 12:30 Nifedipine (Procardia Xl) 60 mg BID PO Last administered on 08/24/18 12:31; Admin Dose 60 MG; Start 08/16/18 at 21:00 Famotidine (Pepcid) 20 mg QHS PO Last administered on 08/23/18 20:13; Admin Dose 20 MG; Start 08/17/18 at 21:00 Minoxidil (Loniten) 5 mg BID PO Last administered on 08/24/18 12:30; Admin Dose 5 MG; Start 08/17/18 at 21:00 Acetaminophen (Tylenol Tab) 650 mg Q6H PRN PO MILD PAIN(1-3)OR ELEVATED TEMP Last administered on 08/18/18 10:26; Admin Dose 650 MG; Start 08/18/18 at 10:30 Diagnostic Test (Pha) (Accu-Chek) 1 ea 02 XX Last administered on 08/24/18at 01:59; Admin Dose 1 EA; Start 08/19/18 at 02:00 Insulin Aspart (Novolog Insulin Pen) NOVOLOG *MILD* ALGORITHM WITH MEALS BEDTIME SC Last administered on 08/23/18 20:24; Admin Dose 1 UNIT; Start 08/18/18 at 12:00 Miscellaneous Information 1 ea NOTE XX ; Start 08/18/18 at 10:30 Glucose (Glutose) 15 gm Q15M PRN PO DECREASED GLUCOSE; Start 08/18/18 at 10:30 Glucose (Glutose) 22.5 gm Q15M PRN PO DECREASED GLUCOSE; Start 08/18/18 at 10:3 0 Dextrose (D50w Syringe) 25 ml Q15M PRN IV DECREASED GLUCOSE; Start 08/18/18 at 10:30 Dextrose (D50w Syringe) 50 ml Q15M PRN IV DECREASED GLUCOSE; Start 08/18/18 at 10:30 Glucagon (Glucagen) 1 mg Q15M PRN IM DECREASED GLUCOSE; Start 08/18/18 at 10:30 Glucose (Glutose) 15 gm Q15M PRN BUCCAL DECREASED GLUCOSE; Start 08/18/18 at 10:30 Hydroxyzine HCl (Atarax) 25 mg Q6H PRN PO ITCHING Last administered on 3/4/19at 10:36; Admin Dose 25 MG; Start 08/22/18 at 10:00 Labetalol HCl (Normodyne) 400 mg BID PO Last administered on 08/24/18at 12:32; Admin Dose 400 MG; Start 08/23/18 at 21:00 MARVIN FERNANDEZ MD Aug 24, 2018 16:02
[2018-08-24] MEDS: FAMOTIDINE 20 MG TAB PO SCH (20:06)
[2018-08-25] VITALS: PULSE 65
[2018-08-25] MEDS: ACCU-CHEK XX SCH (02:00)
[2018-08-25 04:00] VITALS: BP 119/57; PULSE 66; PULSE 68; RESP 19
[2018-08-25 07:28] VITALS: BP 170/76; PULSE 67; RESP 19
[2018-08-25 08:00] VITALS: PULSE 74
[2018-08-25] MEDS: INSULIN ASPART [NOVOLOG] 3 ML PEN SC SCH ×2 (08:00→12:01)
--- NOTE | 2018-08-25 08:09 | CONS ---
Consult Date/Type/Reason Admit Date/Time Aug 16, 2018 at 00:15 Initial Consult Date 08/16/18 Type of Consultation: CV Requesting Provider: HARMONY PETERSON MD Date/Time of Note DATE: 08/25/18 TIME: 08:08 Subjective Cardiology follow-up progress note Subjective: Discussed with the staff telemetry was reviewed patient with normal sinus rhythm/sinus bradycardia Patient with no chest pain or pressure. HE denies bleeding to me No cough now and feels better and wants to go home pt is off of isolation now Objective: General: no acute distress HEENT: NC/AT. . NECK: NO JVD. no stridor. CV: RRR. systolic murmur; no gallop or rubs. PULM: no wheezing or rhonchi. GI: SOFT, NT, ND, no rebound or guarding Extremity: trace B/L LE edema. no clubbing. neuro: awake and alert, OX3. Psych: calm and pleasant rectal: deferred : normal EKG was personally within normal sinus rhythm nonspecific ST abnormalities Chest x-ray shows: Mild cardiomegaly. Mild pulmonary vascular congestion. Calcified aorta consistent with atherosclerotic disease. 3.8 cm right lower lobe nodular opacity. Follow-up CT chest is recommended. Echocardiogram done 08/16/2018 shows: Normal left ventricular systolic function. Normal left ventricular cavity size. Ejection fraction is visually estimated at 60 %. Tissue Doppler/Mitral Doppler indices are consistent with impaired relaxation (Stage I diastolic dysfunction). Mild mitral leaflet calcification. Mild mitral annular calcification. Mild mitral valve regurgitation. No significant aortic stenosis or insufficiency. Aortic cusps appear mildly calcified. Normal appearance of the tricuspid valve. Estimated peak PA systolic pressure 36 mmHg. There is mild tricuspid regurgitation. CT of the chest on 08/13/2018 shows: Multiple nodular densities are seen within the right lower lobe and this corresponds to the abnormality on prior chest radiograph. There is also a nodule in the left lower lobe. These could represent infectious nodular opacities or could represent neoplastic lesions. This can be correlated with clinical findings and biopsy may be considered as clinically warranted. Follow-up CT is recommended after 3 months. Renal atrophy is present with mild cardiomegaly and faint pulmonary edema. Atherosclerotic disease is present. There is a fecal filled colon with diverticulosis. Objective Vitals Vital Signs Date Temp Pulse Resp B/P (MAP) Pulse Ox O2 O2 Flow FiO2 Time Delivery Rate 08/25/18 98.0 67 19 170/76 95 07:28 (107) 08/24/18 Room Air 16:00 Intake and Output 08/24/18 08/24/18 08/25/18 1515:00 23:00 07:00 IntakeIntake Total 800 ml 400 ml OutputOutput Total 2900 ml BalanceBalance -2900 ml 800 ml 400 ml Results/Medications Result Diagram: 08/24/18 0538 08/24/18 1533 Results 24 hrs Laboratory Tests Test 08/24/18 11:23 08/24/18 15:33 08/24/18 17:49 08/24/18 20:04 Bedside Glucose 125 222 H 130 Sodium Level 136 Potassium Level 4.3 Chloride Level 94 L Carbon Dioxide Level 27 Anion Gap 15 H Blood Urea Nitrogen 41 #H Creatinine 6.72 #H Est Glomerular Filtrat 9 L Rate mL/min Glucose Level 263 #H Calcium Level 8.5 Test 08/25/18 07:51 Bedside Glucose 81 Home Meds Reported Medications Nifedipine* (Nifedipine ER*) 90 Mg Tablet.er, 90 MG PO DAILY, TAB 08/15/18 Carvedilol* (Carvedilol*) 6.25 Mg Tablet, 6.25 MG PO BID, #60 TAB 08/15/18 Isosorbide Mononitrate* (Isosorbide Mononitrate*) 60 Mg Tab.er.24h, 60 MG PO DAILY, TAB 08/15/18 Losartan Potassium* (Losartan Potassium*) 50 Mg Tablet, 50 MG PO DAILY, TAB 08/15/18 Minoxidil* (Lonitin*) 2.5 Mg Tab, 2.5 MG PO BID, TAB 08/15/18 Famotidine* (Famotidine*) 20 Mg Tablet, 20 MG PO BID, #60 TAB 08/15/18 Atropine Sulfate/0.9 %Sod Chlr (Atropine 0.01%-Ns Eye Drops) 10 Ml Drops, 15 ML OP BID, BOTTLE 08/15/18 Tamsulosin Hcl* (Tamsulosin Hcl*) 0.4 Mg Cap.er.24h, 0.4 MG PO DAILY, CAP 08/15/18 Clonidine Hcl* (Clonidine Hcl*) 0.1 Mg Tab, 0.2 MG PO BID PRN for ELEVATED BLOOD PRESSURE, TAB 08/15/18 Sevelamer Carbonate* (Renvela*) 800 Mg Tablet, 0.8 GM PO WITH MEALS, TAB 08/15/18 Medications Current Medications Dextrose (D50w Syringe) ONCE PRN IV DECREASED GLUCOSE Last administered on 08/15/18 23:48; Admin Dose 50 ML; Start 08/15/18 at 23:00 Zolpidem Tartrate (Ambien) 5 mg HS PRN PO INSOMNIA Last administered on 08/21/18 21:01; Admin Dose 5 MG; Start 08/16/18 at 02:30 Atropine Sulfate (Atropine 1% Oph) 1 drop BID BOTH EYES Last administered on 08/24/18 20:06; Admin Dose 1 DROP; Start 08/16/18 at 09:00 Losartan Potassium (Cozaar) 50 mg DAILY PO Last administered on 08/24/18 12:31; Admin Dose 50 MG; Start 08/16/18 at 09:00 Clonidine (Catapres) 0.1 mg Q4H PRN PO ELEVATED BLOOD PRESSURE Last administered on 08/23/18 20:13; Admin Dose 0.1 MG; Start 08/16/18 at 08:30 Isosorbide Mononitrate (Imdur) 60 mg DAILY PO Last administered on 08/24/18 12:30; Admin Dose 60 MG; Start 08/16/18 at 11:00 Heparin Sodium (Porcine) (Heparin (1000 Units/ml)) 4,000 unit AFTER DIALYSIS CATHETER Last administered on 08/24/18 11:27; Admin Dose 4,000 UNIT; Start 08/16/18 at 12:30 Albumin Human 100 ml @ 100 mls/hr WITH DIALYSIS PRN IV SBP <90 DURING DIALYSIS; Start 08/16/18 at 12:30 Sodium Chloride (NS) -To prime the dialy... DIRECTED FOR HD PRN IV HD; Start 08/16/18 at 12:30 Nifedipine (Procardia Xl) 60 mg BID PO Last administered on 08/24/18 20:07; Admin Dose 60 MG; Start 08/16/18 at 21:00 Famotidine (Pepcid) 20 mg QHS PO Last administered on 08/24/18 20:06; Admin Dose 20 MG; Start 08/17/18 at 21:00 Minoxidil (Loniten) 5 mg BID PO Last administered on 08/24/18at 20:06; Admin Dose 5 MG; Start 08/17/18 at 21:00 Acetaminophen (Tylenol Tab) 650 mg Q6H PRN PO MILD PAIN(1-3)OR ELEVATED TEMP Last administered on 08/18/18at 10:26; Admin Dose 650 MG; Start 08/18/18 at 10:30 Diagnostic Test (Pha) (Accu-Chek) 1 ea 02 XX Last administered on 08/24/18at 01:59; Admin Dose 1 EA; Start 08/19/18 at 02:00 Insulin Aspart (Novolog Insulin Pen) NOVOLOG *MILD* ALGORITHM WITH MEALS BEDTIME SC Last administered on 08/24/18at 17:53; Admin Dose 3 UNIT; Start 08/18/18 at 12:00 Miscellaneous Information 1 ea NOTE XX ; Start 08/18/18 at 10:30 Glucose (Glutose) 15 gm Q15M PRN PO DECREASED GLUCOSE; Start 08/18/18 at 10:30 Glucose (Glutose) 22.5 gm Q15M PRN PO DECREASED GLUCOSE; Start 08/18/18 at 10:30 Dextrose (D50w Syringe) 25 ml Q15M PRN IV DECREASED GLUCOSE; Start 08/18/18 at 10:30 Dextrose (D50w Syringe) 50 ml Q15M PRN IV DECREASED GLUCOSE; Start 08/18/18 at 10:30 Glucagon (Glucagen) 1 mg Q15M PRN IM DECREASED GLUCOSE; Start 08/18/18 at 10:30 Glucose (Glutose) 15 gm Q15M PRN BUCCAL DECREASED GLUCOSE; Start 08/18/18 at 10:30 Hydroxyzine HCl (Atarax) 25 mg Q6H PRN PO ITCHING Last administered on 08/22/18at 10:36; Admin Dose 25 MG; Start 08/22/18 at 10:00 Labetalol HCl (Normodyne) 400 mg BID PO Last administered on 08/24/18at 20:07; Admin Dose 400 MG; Start 08/23/18 at 21:00 Assessment/Plan Hospital Course (Demo Recall) 1. Hypertensive urgency/resistant hypertension 2. History of coronary artery disease 3. History of most likely [place] and coronary artery bypass graft 4. Renal failure on dialysis 5. Pulmonary vascular congestion/fluid overload 6. Diabetes 7. Dyslipidemia 8. Hyperkalemia 9. Pulmonary nodule Recommendations: Continue with the Procardia. cont labetalol and adjust as needed. Continue with minoxidil Continue with losartan as long as okay with renal and specially from hyperkalemia stand point Clonidine will be continued as a as needed as well. Hemodialysis as per renal follow up with pulmonary recommendations Thank you for his referral. We will continue to follow along with you NAHUN RUSSELL MD [facility] NAHUN RUSSELL MD Aug 25, 2018 08:09
[2018-08-25] MEDS: ATROPINE 1% 5 ML OPH BOTH EYES SCH (08:41)
[2018-08-25] MEDS: LABETALOL 200 MG TAB PO SCH (08:42)
[2018-08-25] MEDS: NIFEdipine (XL) 60 MG TAB PO SCH (08:43)
[2018-08-25] MEDS: MINOXIDIL 2.5 MG TAB PO SCH (08:43)
[2018-08-25] MEDS: ISOSORBIDE MONONITRATE(SR)60 MG TAB PO SCH (08:43)
[2018-08-25] MEDS: LOSARTAN 50 MG TAB PO SCH (08:43)
[2018-08-25 11:31] VITALS: BP 172/81; PULSE 71; RESP 19
--- NOTE | 2018-08-25 11:53 | CONS ---
Assessment/Plan Assessment/Plan Assessment/Plan (Daily) 1. acute hyperkalemia - resolved now 2. ESRD on HD MWF 3. accelerateD HTN - improving BP control 4. acute chest pain 5.type II DM with hyperglycemia 6. H/o HTN Plan: Nifedipine 60mg pO BID, S/p HD TODAY 2.5 L removed, Afebrile, BP stable IV abx as per ID will follow u ok to d/c follow up with his HD unit on MWF for scheduled HD Consultation Date/Type/Reason Admit Date/Time Aug 16, 2018 at 00:15 Initial Consult Date 08/16/18 Type of Consult NEPHROLOGY Requesting Provider: HARMONY PETERSON MD Date/Time of Note DATE: 08/25/18 TIME: 11:53 Exam/Review of Systems Exam Vitals Vital Signs Date Temp Pulse Resp B/P (MAP) Pulse Ox O2 O2 Flow FiO2 Time Delivery Rate 08/25/18 97.8 71 19 172/81 98 11:31 (111) 08/24/18 Room Air 16:00 Intake and Output 08/24/18 08/24/18 08/25/18 1515:00 23:00 07:00 IntakeIntake Total 800 ml 400 ml OutputOutput Total 2900 ml BalanceBalance -2900 ml 800 ml 400 ml Results Result Diagram: 08/24/18 0538 08/24/18 1533 Results 24hrs Laboratory Tests Test 08/24/18 15:33 08/24/18 17:49 08/24/18 20:04 08/25/18 07:51 Sodium Level 136 Potassium Level 4.3 Chloride Level 94 L Carbon Dioxide Level 27 Anion Gap 15 H Blood Urea Nitrogen 41 #H Creatinine 6.72 #H Est Glomerular Filtrat 9 L Rate mL/min Glucose Level 263 #H Calcium Level 8.5 Bedside Glucose 222 H 130 81 Medications Medication Current Medications Dextrose (D50w Syringe) ONCE PRN IV DECREASED GLUCOSE Last administered on 08/15/18at 23:48; Admin Dose 50 ML; Start 08/15/18 at 23:00 Zolpidem Tartrate (Ambien) 5 mg HS PRN PO INSOMNIA Last administered on 08/21/18at 21:01; Admin Dose 5 MG; Start 08/16/18 at 02:30 Atropine Sulfate (Atropine 1% Oph) 1 drop BID BOTH EYES Last administered on 08/25/18 08:41; Admin Dose 1 DROP; Start 08/16/18 at 09:00 Losartan Potassium (Cozaar) 50 mg DAILY PO Last administered on 08/25/18 08:43; Admin Dose 50 MG; Start 08/16/18 at 09:00 Clonidine (Catapres) 0.1 mg Q4H PRN PO ELEVATED BLOOD PRESSURE Last administered on 08/23/18 20:13; Admin Dose 0.1 MG; Start 08/16/18 at 08:30 Isosorbide Mononitrate (Imdur) 60 mg DAILY PO Last administered on 08/25/18 08:43; Admin Dose 60 MG; Start 08/16/18 at 11:00 Heparin Sodium (Porcine) (Heparin (1000 Units/ml)) 4,000 unit AFTER DIALYSIS CATHETER Last administered on 08/24/18 11:27; Admin Dose 4,000 UNIT; Start 08/16/18 at 12:30 Albumin Human 100 ml @ 100 mls/hr WITH DIALYSIS PRN IV SBP <90 DURING DIALYSIS; Start 08/16/18 at 12:30 Sodium Chloride (NS) -To prime the dialy... DIRECTED FOR HD PRN IV HD; Start 08/16/18 at 12:30 Nifedipine (Procardia Xl) 60 mg BID PO Last administered on 08/25/18 08:43; Admin Dose 60 MG; Start 08/16/18 at 21:00 Famotidine (Pepcid) 20 mg QHS PO Last administered on 08/24/18 20:06; Admin Dose 20 MG; Start 08/17/18 at 21:00 Minoxidil (Loniten) 5 mg BID PO Last administered on 08/25/18 08:43; Admin Dose 5 MG; Start 08/17/18 at 21:00 Acetaminophen (Tylenol Tab) 650 mg Q6H PRN PO MILD PAIN(1-3)OR ELEVATED TEMP Last administered on 08/18/18 10:26; Admin Dose 650 MG; Start 08/18/18 at 10:30 Diagnostic Test (Pha) (Accu-Chek) 1 ea 02 XX Last administered on 08/24/18 01:59; Admin Dose 1 EA; Start 08/19/18 at 02:00 Insulin Aspart (Novolog Insulin Pen) NOVOLOG *MILD* ALGORITHM WITH MEALS BEDTIME SC Last administered on 08/24/18at 17:53; Admin Dose 3 UNIT; Start 08/18/18 at 12:00 Miscellaneous Information 1 ea NOTE XX ; Start 08/18/18 at 10:30 Glucose (Glutose) 15 gm Q15M PRN PO DECREASED GLUCOSE; Start 08/18/18 at 10:30 Glucose (Glutose) 22.5 gm Q15M PRN PO DECREASED GLUCOSE; Start 08/18/18 at 10:30 Dextrose (D50w Syringe) 25 ml Q15M PRN IV DECREASED GLUCOSE; Start 08/18/18 at 10:30 Dextrose (D50w Syringe) 50 ml Q15M PRN IV DECREASED GLUCOSE; Start 08/18/18 at 10:30 Glucagon (Glucagen) 1 mg Q15M PRN IM DECREASED GLUCOSE; Start 08/18/18 at 10:30 Glucose (Glutose) 15 gm Q15M PRN BUCCAL DECREASED GLUCOSE; Start 08/18/18 at 10:30 Hydroxyzine HCl (Atarax) 25 mg Q6H PRN PO ITCHING Last administered on 08/22/18at 10:36; Admin Dose 25 MG; Start 08/22/18 at 10:00 Labetalol HCl (Normodyne) 400 mg BID PO Last administered on 08/25/18at 08:42; Admin Dose 400 MG; Start 08/23/18 at 21:00 VALERIA RODRÍGUEZ MD Aug 25, 2018 11:53
[2018-08-25 12:00] VITALS: PULSE 67
[2018-08-25] MEDS ORDERED: NIFE60TA2 PO (13:27)
[2018-08-25] MEDS ORDERED: MINO2.5T16 PO (13:27)
[2018-08-25] MEDS ORDERED: LABE200T25 PO (13:27)
--- NOTE | 2018-08-25 14:10 | CONS ---
Assessment/Plan Assessment/Plan Hospital Course (Demo Recall) #Multiple lung mass in RLL -CT guided bx reveals evidence of pneumonia #Pneumonia LLL mass, s/p biopsy, pathology revealed organizing pneumonia with foci of acute inflammation. -Continue antibiotics for per ID. -pt negative for TB and cocci - Once infectious disease gives clearance the patient will be started on steroids at 1 mg/kg per day for a slow taper over 6 months as recommended by the commodity analyst. - continue empiric PO vancomycin (08/21/2018-) #ESRD -continue HD per renal #HTN -continue BP meds Thank you for the opportunity to participate in this patients care A total of 40 minutes of face to face time was spent speaking with the patient, of which greater than 50% was spent in counseling and coordination of care and the detailed question and answer session. Consultation Date/Type/Reason Admit Date/Time Aug 16, 2018 at 00:15 Initial Consult Date 08/17/18 Type of Consult oncology Reason for Consultation pulmonary nodules Requesting Provider: HARMONY PETERSON MD Date/Time of Note DATE: 08/25/18 TIME: 14:09 24 HR Interval Summary Free Text/Dictation no acute overnight events Exam/Review of Systems Exam Vitals Vital Signs Date Temp Pulse Resp B/P (MAP) Pulse Ox O2 O2 Flow FiO2 Time Delivery Rate 08/25/18 67 12:00 08/25/18 97.8 19 172/81 98 11:31 (111) 08/24/18 Room Air 16:00 Intake and Output 08/24/18 08/24/18 08/25/18 1515:00 23:00 07:00 IntakeIntake Total 800 ml 400 ml OutputOutput Total 2900 ml BalanceBalance -2900 ml 800 ml 400 ml Constitutional: alert, oriented Psych: no complaints Head: normocephalic Eyes: nl conjunctiva ENMT: nl external ears & nose Neck: supple Respiratory: clear to auscultation Cardiovascular: regular rate and rhythm Gastrointestinal: soft Musculoskeletal: nl extremities to inspection Results Result Diagram: 08/24/18 0538 08/24/18 1533 Results 24hrs Laboratory Tests Test 08/24/18 15:33 08/24/18 17:49 08/24/18 20:04 08/25/18 07:51 Sodium Level 136 Potassium Level 4.3 Chloride Level 94 L Carbon Dioxide Level 27 Anion Gap 15 H Blood Urea Nitrogen 41 #H Creatinine 6.72 #H Est Glomerular Filtrat 9 L Rate mL/min Glucose Level 263 #H Calcium Level 8.5 Bedside Glucose 222 H 130 81 Test 08/25/18 11:55 Bedside Glucose 155 Medications Medication Current Medications Dextrose (D50w Syringe) ONCE PRN IV DECREASED GLUCOSE Last administered on 08/15/18 23:48; Admin Dose 50 ML; Start 08/15/18 at 23:00 Zolpidem Tartrate (Ambien) 5 mg HS PRN PO INSOMNIA Last administered on 08/21/18 21:01; Admin Dose 5 MG; Start 08/16/18 at 02:30 Atropine Sulfate (Atropine 1% Oph) 1 drop BID BOTH EYES Last administered on 08/25/18 08:41; Admin Dose 1 DROP; Start 08/16/18 at 09:00 Losartan Potassium (Cozaar) 50 mg DAILY PO Last administered on 08/25/18 08:43; Admin Dose 50 MG; Start 08/16/18 at 09:00 Clonidine (Catapres) 0.1 mg Q4H PRN PO ELEVATED BLOOD PRESSURE Last administered on 08/23/18 20:13; Admin Dose 0.1 MG; Start 08/16/18 at 08:30 Isosorbide Mononitrate (Imdur) 60 mg DAILY PO Last administered on 08/25/18 08:43; Admin Dose 60 MG; Start 08/16/18 at 11:00 Heparin Sodium (Porcine) (Heparin (1000 Units/ml)) 4,000 unit AFTER DIALYSIS CATHETER Last administered on 08/24/18 11:27; Admin Dose 4,000 UNIT; Start 08/16/18 at 12:30 Albumin Human 100 ml @ 100 mls/hr WITH DIALYSIS PRN IV SBP <90 DURING DIALYSIS; Start 08/16/18 at 12:30 Sodium Chloride (NS) -To prime the dialy... DIRECTED FOR HD PRN IV HD; Start 08/16/18 at 12:30 Nifedipine (Procardia Xl) 60 mg BID PO Last administered on 08/25/18 08:43; Admin Dose 60 MG; Start 08/16/18 at 21:00 Famotidine (Pepcid) 20 mg QHS PO Last administered on 08/24/18 20:06; Admin Dose 20 MG; Start 08/17/18 at 21:00 Minoxidil (Loniten) 5 mg BID PO Last administered on 08/25/18 08:43; Admin Dose 5 MG; Start 08/17/18 at 21:00 Acetaminophen (Tylenol Tab) 650 mg Q6H PRN PO MILD PAIN(1-3)OR ELEVATED TEMP Last administered on 08/18/18at 10:26; Admin Dose 650 MG; Start 08/18/18 at 10:30 Diagnostic Test (Pha) (Accu-Chek) 1 ea 02 XX Last administered on 08/24/18at 01:59; Admin Dose 1 EA; Start 08/19/18 at 02:00 Insulin Aspart (Novolog Insulin Pen) NOVOLOG *MILD* ALGORITHM WITH MEALS BEDTIME SC Last administered on 08/25/18 12:01; Admin Dose 1 UNIT; Start 08/18/18 at 12:00 Miscellaneous Information 1 ea NOTE XX ; Start 08/18/18 at 10:30 Glucose (Glutose) 15 gm Q15M PRN PO DECREASED GLUCOSE; Start 08/18/18 at 10:30 Glucose (Glutose) 22.5 gm Q15M PRN PO DECREASED GLUCOSE; Start 08/18/18 at 10:30 Dextrose (D50w Syringe) 25 ml Q15M PRN IV DECREASED GLUCOSE; Start 08/18/18 at 10:30 Dextrose (D50w Syringe) 50 ml Q15M PRN IV DECREASED GLUCOSE; Start 08/18/18 at 10:30 Glucagon (Glucagen) 1 mg Q15M PRN IM DECREASED GLUCOSE; Start 08/18/18 at 10:30 Glucose (Glutose) 15 gm Q15M PRN BUCCAL DECREASED GLUCOSE; Start 08/18/18 at 10:30 Hydroxyzine HCl (Atarax) 25 mg Q6H PRN PO ITCHING Last administered on 08/22/18 10:36; Admin Dose 25 MG; Start 08/22/18 at 10:00 Labetalol HCl (Normodyne) 400 mg BID PO Last administered on 08/25/18at 08:42; Admin Dose 400 MG; Start 08/23/18 at 21:00 AMAYA MONDRAGON M.D. Aug 25, 2018 14:10
--- NOTE | 2018-08-28 21:38 | DS ---
Date/Time of Note Date/Time of Note DATE: 08/28/18 TIME: 21:32 Discharge Summary Admission/Discharge Info Admit Date/Time Aug 16, 2018 at 00:15 Discharge Date/Time Aug 25, 2018 at 15:05 Patient Condition: Stable Hx of Present Illness This is a unfortunate 57-year-old gentleman with history of hypertension, blindness, renal failure on dialysis diabetes coronary artery disease status post coronary bypass graft . Patient is admitted with complaint of shortness of breath, cough with phlegm, nasal congestion, bilateral earache, started this morning. Patient is blind and is unable to exactly what color his sputum was b ut instead he has been coughing the past couple of days. He denies any chest pain or pressure to me denies any PND orthopnea to me.monty or chills. Denies chest pain or shortness of breath. His blood pressure reported is SBP 200 and patient denies any headache. Hospital Course - LLL mass, s/p biopsy, pathology revealed organizing pneumonia with foci of acute inflammation. Treated with abx. The patient is being followed by Dr. Shine. The patient has extensive workup ordered including (Q TB gold negative, AFB smear of sputum was negative x3 and HIV test negative). Fungal fx is still pending. Pt will f/up with ID as an outpatient. follow-up CT chest without contrast in 6 weeks time to ensure resolution of right lower lobe lung mass. - HTN - DM - CAD, Hx of CABG - ESRD on HD - Legal blindness. No acute issue. Plan of care discussed with Dr. Reagan. Home Meds Active Scripts Nifedipine (Procardia Xl) 60 Mg Tab.er.24, 60 MG PO BID for 30 Days, TAB Prov:MARGARITO DAMICO 08/25/18 Minoxidil* (Lonitin*) 2.5 Mg Tab, 5 MG PO BID for 30 Days, TAB Prov:MARGARITO DAMICO 08/25/18 Labetalol Hcl* (Labetalol Hcl*) 200 Mg Tablet, 400 MG PO BID for 30 Days, TAB Prov:ELIEZER DAMICOA 08/25/18 Reported Medications Isosorbide Mononitrate* (Isosorbide Mononitrate*) 60 Mg Tab.er.24h, 60 MG PO DAILY, TAB 08/15/18 Losartan Potassium* (Losartan Potassium*) 50 Mg Tablet, 50 MG PO DAILY, TAB 08/15/18 Famotidine* (Famotidine*) 20 Mg Tablet, 20 MG PO BID, #60 TAB 08/15/18 Atropine Sulfate/0.9 %Sod Chlr (Atropine 0.01%-Ns Eye Drops) 10 Ml Drops, 15 ML OP BID, BOTTLE 08/15/18 Tamsulosin Hcl* (Tamsulosin Hcl*) 0.4 Mg Cap.er.24h, 0.4 MG PO DAILY, CAP 08/15/18 Clonidine Hcl* (Clonidine Hcl*) 0.1 Mg Tab, 0.2 MG PO BID PRN for ELEVATED BLOOD PRESSURE, TAB 08/15/18 Sevelamer Carbonate* (Renvela*) 800 Mg Tablet, 0.8 GM PO WITH MEALS, TAB 08/15/18 Discontinued Reported Medications Nifedipine* (Nifedipine ER*) 90 Mg Tablet.er, 90 MG PO DAILY, TAB 08/15/18 Carvedilol* (Carvedilol*) 6.25 Mg Tablet, 6.25 MG PO BID, #60 TAB 08/15/18 Minoxidil* (Lonitin*) 2.5 Mg Tab, 2.5 MG PO BID, TAB 08/15/18 Follow-up Plan DC if cleared by ID, follow-up with Dr. Rose in 2 weeks, follow-up at hemodialysis center tomorrow. Primary Care Provider [facility] Time spent on discharge: > 30 minutes MARGARITO DAMICO Aug 28, 2018 21:38
== END 2018-08-25 15:05 | disposition home or self-care (01) | DRG 196 ==
LOC: E/R 18:43 → 6WM 08-16 00:15
PROVIDERS: ADMIT Internal Medicine; ATTEND Internal Medicine
PROC: 5A1D70Z Performance of Urinary Filtration, Intermittent, Less than 6 Hours Per Day (ICD-10-PCS; 2018-08-16)
PROC: 0BDF4ZX Extraction of Right Lower Lung Lobe, Percutaneous Endoscopic Approach, Diagnostic (ICD-10-PCS; principal; 2018-08-17)
DX: J84.89 Other specified interstitial pulmonary diseases (principal); N18.6 End stage renal disease; I12.0 Hypertensive chronic kidney disease with stage 5 chronic kidney disease or end stage renal disease; E11.22 Type 2 diabetes mellitus with diabetic chronic kidney disease; Z99.2 Dependence on renal dialysis; I16.0 Hypertensive urgency; E87.70 Fluid overload, unspecified; E78.5 Hyperlipidemia, unspecified; E87.5 Hyperkalemia; E11.319 Type 2 diabetes mellitus with unspecified diabetic retinopathy without macular edema; E11.65 Type 2 diabetes mellitus with hyperglycemia; I25.10 Atherosclerotic heart disease of native coronary artery without angina pectoris; I25.2 Old myocardial infarction; H54.8 Legal blindness, as defined in USA; Z95.1 Presence of aortocoronary bypass graft
CPT/HCPCS: 70480; 71045; 71250; 74176; 76775; 77012; 80048; 80053; 80061; 80202; 82378; 82962; 83036; 83735; 84439; 84443; 85025; 85049; 85610; 85670; 85730; 86480; 86635; 86703; 87040; 87070; 87075; 87102; 87116; 87340; 87400; 88307; 88313; 90935; 93005; 93306; 94664; 96374; 96375; J1644; J1815; J2543; J3370; J7050

== ENCOUNTER 2018-09-19 04:29 | Inpatient (IN) | payer MEDICARE, OTHER ==
[~2018-09-19] VITALS: Ht 162.6 cm; Wt 66.0 kg
[2018-09-19] VITALS (55 sets, daily range): BP systolic 119–230; BP diastolic 60–109; PULSE 52–79; RESP 12–29; Ht 162.6 cm; Wt 66.0 kg
[~2018-09-19 04:29] MED LIST: ATRO10DR OP; CLON-379 PO; FAMO20TA18 PO; ISOS60TA PO; LABE200T25 PO; LOSA50TA14 PO; MINO2.5T16 PO; NIFE60TA2 PO; SEVE800T7 PO; TAMS0.4C2 PO
[2018-09-19] MEDS ORDERED: ONDANSETRON 4 MG INJ IV STA (06:12)
[2018-09-19] MEDS ORDERED: morphine 4 MG/ML VIAL IV STA (06:12)
[2018-09-19] MEDS ORDERED: ALBUTEROL 0.5% (NEB) 2.5 MG/0.5 ML AMP INH STA (06:13)
[2018-09-19] MEDS ORDERED: SODIUM POLYSTYRENE 15 GM KIT (POWDER + SORBITOL) PO STA (06:13)
[2018-09-19] MEDS ORDERED: NA BICARBONATE 8.4% 50 ML SYG IV STA (06:13)
[2018-09-19] MEDS ORDERED: INSULIN REGULAR, HUMAN 100 UNIT/1 ML 3ML VIAL IVP STA (06:13)
[2018-09-19] MEDS ORDERED: CA CHLORIDE 10% 10 ML SYRINGE IV STA (06:13)
[2018-09-19] MEDS ORDERED: DEXTROSE 50% 50 ML SYRINGE IV PRN ×3 (06:30→11:00)
[2018-09-19] MEDS ORDERED: ONDANSETRON 4 MG INJ IV PRN ×2 (07:00→10:30)
[2018-09-19] MEDS ORDERED: ACETAMINOPHEN 325 MG TAB PO PRN ×2 (07:00→10:30)
--- NOTE | 2018-09-19 07:24 | ERD ---
ER Documentation Chief Complaint Chief Complaint abd pain; cough, vomiting since last night;legally blind; danny HPI Patient is a 57-year-old male with hypertension, diabetes, and chronic kidney disease who presents with abdominal pain. He said that his abdominal pain started last night. He has abdominal pain and cough. The pain is worse with coughing. He has no fevers. He has nausea but no vomiting. He has had no treatment as of yet. Upon review of old medical records the patient does have a recent admission for hyperkalemia within the past few months. He does not remember the name of his primary doctor. ROS All systems reviewed and are negative except as per history of present illness. Medications Home Meds Active Scripts Nifedipine (Procardia Xl) 60 Mg Tab.er.24, 60 MG PO BID for 30 Days, TAB Prov:MARGARITO DAMICO 08/25/18 Minoxidil* (Lonitin*) 2.5 Mg Tab, 5 MG PO BID for 30 Days, TAB Prov:MARGARITO DAMICO 08/25/18 Labetalol Hcl* (Labetalol Hcl*) 200 Mg Tablet, 400 MG PO BID for 30 Days, TAB Prov:MARGARITO DAMICO 08/25/18 Reported Medications Isosorbide Mononitrate* (Isosorbide Mononitrate*) 60 Mg Tab.er.24h, 60 MG PO DAILY, TAB 08/15/18 Losartan Potassium* (Losartan Potassium*) 50 Mg Tablet, 50 MG PO DAILY, TAB 08/15/18 Famotidine* (Famotidine*) 20 Mg Tablet, 20 MG PO BID, #60 TAB 08/15/18 Atropine Sulfate/0.9 %Sod Chlr (Atropine 0.01%-Ns Eye Drops) 10 Ml Drops, 15 ML OP BID, BOTTLE 08/15/18 Tamsulosin Hcl* (Tamsulosin Hcl*) 0.4 Mg Cap.er.24h, 0.4 MG PO DAILY, CAP 08/15/18 Clonidine Hcl* (Clonidine Hcl*) 0.1 Mg Tab, 0.2 MG PO BID PRN for ELEVATED BLOOD PRESSURE, TAB 08/15/18 Sevelamer Carbonate* (Renvela*) 800 Mg Tablet, 0.8 GM PO WITH MEALS, TAB 08/15/18 Allergies Allergies: Coded Allergies: hydralazine (Verified Allergy, Unknown, 08/15/18) simvastatin (Verified Allergy, Unknown, 08/15/18) PMhx/Soc History of Surgery: Yes (Heart & eye surgery) Anesthesia Reaction: No Hx 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 Disorder: No Hx Respiratory Disorders: No Hx Cardiac Disorders: Yes (HTN) Hx Psychiatric Problems: No Hx Miscellaneous Medical Probl: Yes (DM) Hx Alcohol Use: Yes Hx Substance Use: No Hx Tobacco Use: No Smoking Status: Never smoker FmHx Family History: diabetes Physical Exam Vitals Vital Signs Date Temp Pulse Resp B/P (MAP) Pulse Ox O2 O2 Flow FiO2 Time Delivery Rate 09/19/18 49 21 95 21 06:53 09/19/18 67 21 159/76 98 Room Air 06:05 (103) 09/19/18 97.0 50 20 119/86 95 04:37 (97) Physical Exam Const: No acute distress Head: Atraumatic Eyes: Normal Conjunctiva ENT: Normal External Ears, Nose and Mouth. Neck: Full range of motion. No meningismus. Resp: Clear to auscultation bilaterally Cardio: Regular rate and rhythm, no murmurs Abd: Soft, n right upper quadrant tenderness to palpation without rebound or guarding Skin: No petechiae or rashes Back: No midline or flank tenderness Ext: No cyanosis, or edema Neur: Awake and alert, blind at baseline Result Diagram: 09/19/18 0459 09/19/18 0459 Results 24 hrs Laboratory Tests Test 09/19/18 04:54 09/19/18 04:59 09/19/18 06:23 09/19/18 06:36 Bedside Glucose 157 mg/dL 131 mg/dL 124 mg/dL White Blood Count 4.7 10^3/ul Red Blood Count 3.93 10^6/ul Hemoglobin 11.7 g/dl Hematocrit 37.1 % Mean Corpuscular 94.4 fl Volume Mean Corpuscular 29.8 pg Hemoglobin Mean Corpuscular 31.5 g/dl Hemoglobin Concent Red Cell Distribution 14.4 % Width Platelet Count 82 10^3/UL Mean Platelet Volume 12.3 fl Immature Granulocytes 0.200 % % Neutrophils % 71.7 % Lymphocytes % 14.2 % Monocytes % 4.0 % Eosinophils % 9.7 % Basophils % 0.2 % Nucleated Red Blood 0.0 /100WBC Cells % Immature Granulocytes 0.010 10^3/ul # Neutrophils # 3.4 10^3/ul Lymphocytes # 0.7 10^3/ul Monocytes # 0.2 10^3/ul Eosinophils # 0.5 10^3/ul Basophils # 0.0 10^3/ul Nucleated Red Blood 0.0 10^3/ul Cells # Sodium Level 146 mmol/L Potassium Level 8.9 mmol/L Chloride Level 107 mmol/L Carbon Dioxide Level 19 mmol/L Anion Gap 20 Blood Urea Nitrogen 105 mg/dl Creatinine 13.35 mg/dl Est Glomerular Filtrat 4 mL/min Rate mL/min Glucose Level 161 mg/dl Calcium Level 9.1 mg/dl Total Bilirubin 0.0 mg/dl Direct Bilirubin 0.00 mg/dl Indirect Bilirubin 0.0 mg/dl Aspartate Amino 45 IU/L Transf (AST/SGOT) Alanine 42 IU/L Aminotransferase (ALT/ SGPT) Alkaline Phosphatase 73 IU/L Troponin I 0.027 ng/ml Total Protein 8.3 g/dl Albumin 4.8 g/dl Globulin 3.50 g/dl Albumin/Globulin Ratio 1.37 Lipase 89 U/L Current Medications Medications Dose Sig/Katina Start Time Status Last (Trade) Ordered Route PRN Stop Time Admin Dose Reason Admin Morphine 4 mg ONCE STAT 09/19/18 DC 09/19/18 Sulfate IV 06:12 09/19/18 06:29 (morphine) 06:15 Ondansetron 4 mg ONCE STAT 09/19/18 DC 09/19/18 HCl (Zofran IV 06:12 09/19/18 06:28 Inj) 06:15 Sodium 30 gm ONCE STAT 09/19/18 DC Polystyrene PO 06:13 09/19/18 Sulfonate 06:14 (Kayexelate 15 Gm Kit (Powder+Sorbi riya)) Albuterol 15 mg ONCE STAT 09/19/18 DC 09/19/18 (Proventil INH 06:13 09/19/18 06:53 0.5% (Neb)) 06:14 Sodium 50 ml ONCE STAT 09/19/18 DC 09/19/18 Bicarbonate IV 06:13 09/19/18 06:28 (Na Bicarb 06:14 8.4% Syg) Calcium 1,000 mg ONCE STAT 09/19/18 DC 09/19/18 Chloride IV 06:13 09/19/18 06:24 (Ca Chloride 06:14 10% Syg) Insulin 10 unit ONCE STAT 09/19/18 DC 09/19/18 Human IVP 06:13 09/19/18 06:25 Regular 06:14 (Humulin R) Dextrose ONCE PRN 09/19/18 09/19/18 (D50w IV DECREASED 06:30 06:40 Syringe) GLUCOSE Ondansetron 4 mg ER BRIDGE 09/19/18 HCl (Zofran PRN IV 07:00 09/20/18 Inj) NAUSEA/VOMITI 06:59 NG 650 mg ER BRIDGE 09/19/18 Acetaminophen PRN PO 07:00 09/20/18 (Tylenol .MILD PAIN 06:59 Tab) 1-3 OR TEMP Procedures/MDM EKG read by me: Rate/Rhythm: Sinus bradycardia at a rate of 46 Intervals: Normal Impression: Sinus bradycardia with bifascicular block Ultrasound of the gallbladder pending. Patient is a 57-year-old male who presents with bradycardia and hyperkalemia. The patient has life-threatening hyperkalemia. The patient will be admitted to the care of Dr. Reagan who he was recently admitted to. The patient was given full treatment for hyperkalemia including calcium. The patient will be admitted to a telemetry inpatient bed. I spoke with Dr. Brooklynn Ortez for emergent dialysis. Critical care time 35 minutes excluding all billable procedures. Departure Diagnosis: Primary Impression: Hyperkalemia Additional Impression: Abdominal pain Abdominal location: right upper quadrant Qualified Codes: R10.11 - Right upper quadrant pain Condition: Serious JULES BARRAZA MD Sep 19, 2018 07:24
[2018-09-19] MEDS ORDERED: SODIUM CHLORIDE 0.9% 1L BAG IV PRN (07:30)
[2018-09-19] MEDS ORDERED: ALBUMIN HUMAN 25% 100 ML IV PRN (07:30)
[2018-09-19] MEDS ORDERED: MANNITOL 25% 50 ML IV PRN (07:30)
--- NOTE | 2018-09-19 09:53 | CONS ---
Assessment/Plan Assessment/Plan Assessment/Plan (Daily) 1. acute hyperkalemia 2. Hypertensive emergency on NTG drip 3. ESRD on HD MWF with acute hyperklaemia and acute fluid overload 4. Possible Cholecysitits 5. H/o CAD s/p CABG 6. H/O HTN 7. H/o HL 8. H/o DM II Plan: admitted to ICU, Stat HD done 1.4 L removed, Pt BP went upto SBP 200s- starte do NTG Drip Nifedipine 60mg pO BID with Minoxidil 5 mg BID, clonindine prn IV hydralazine pnr Plan for another HD tomorrow, then we will keep pt on MWF schedule IV abx zosyn to cover for infeciton/cholecystitis Thanks for Consultation, I will continue to follow up Consultation Date/Type/Reason Admit Date/Time Sep 19, 2018 at 06:33 Date of Consultation: Sep 19, 2018 Type of Consult NEPHROLOGY Reason for Consultation Acute hyperkalemia, Severe ACidosis, fluid overload, ESRD on HD Requesting Provider: JULES BARRAZA MD Date/Time of Note DATE: 09/19/18 TIME: 09:52 Hx of Present Illness 57-year-old gentleman with PMHx of HTN, ESRD on HD- MWF, , CAD s/p CABG, DM II, HTN, Legal blindness who was previously admitted for LLL pneumonia with Mass- s/p Lung biopsy which revealed organizing pneumonia with foci of acute inflammation. Patient was discharged in stable condition with recommendation to repeat CT of the scan. Patient presented to the emergency room with complaints of abdominal pain nausea and vomiting. Patient noted to have potassium being 8.9 and received agressive treatment for hyperkalemia in ED- He gets admitted to ICU and started on IV abx for possible cholecystitis, Renal has been consulted e mergently for HD need and acute hyperkalemia pt had his last HD on Wednesday No chest pain, no Leg edema, no nausea, C/o abdominal pain, SOB and leg cramps Constitutional: poor po ENT: no complaints Respiratory: pleuritic pain, shortness of breath Gastrointestinal: pain, nausea Genitourinary: no complaints Musculoskeletal: no complaints Skin: no complaints Neurologic: no complaints Endocrine: no complaints Lymphatic: no complaints Psychological: no complaints Immunologic: no complaints Past Medical History Medical History: coronary artery disease, diabetes, high cholesterol, hypertension, other (ESRD on HD , LLL mass s/p Lung biopsy revealed Pneumonia and foci of inflammation ) Home Meds Active Scripts Nifedipine (Procardia Xl) 60 Mg Tab.er.24, 60 MG PO BID for 30 Days, TAB Prov:MARGARITO DAMICO 08/25/18 Minoxidil* (Lonitin*) 2.5 Mg Tab, 5 MG PO BID for 30 Days, TAB Prov:ASHTYNBRADENFAITHMARGARITO 08/25/18 Labetalol Hcl* (Labetalol Hcl*) 200 Mg Tablet, 400 MG PO BID for 30 Days, TAB Prov:MARGARITO DAMICO 08/25/18 Reported Medications Isosorbide Mononitrate* (Isosorbide Mononitrate*) 60 Mg Tab.er.24h, 60 MG PO DAILY, TAB 08/15/18 Losartan Potassium* (Losartan Potassium*) 50 Mg Tablet, 50 MG PO DAILY, TAB 08/15/18 Famotidine* (Famotidine*) 20 Mg Tablet, 20 MG PO BID, #60 TAB 08/15/18 Atropine Sulfate/0.9 %Sod Chlr (Atropine 0.01%-Ns Eye Drops) 10 Ml Drops, 15 ML OP BID, BOTTLE 08/15/18 Tamsulosin Hcl* (Tamsulosin Hcl*) 0.4 Mg Cap.er.24h, 0.4 MG PO DAILY, CAP 08/15/18 Clonidine Hcl* (Clonidine Hcl*) 0.1 Mg Tab, 0.2 MG PO BID PRN for ELEVATED BLOOD PRESSURE, TAB 08/15/18 Sevelamer Carbonate* (Renvela*) 800 Mg Tablet, 0.8 GM PO WITH MEALS, TAB 08/15/18 Medications Current Medications Dextrose (D50w Syringe) ONCE PRN IV DECREASED GLUCOSE Last administered on 09/19/18at 06:40; Admin Dose 50 ML; Start 09/19/18 at 06:30 Ondansetron HCl (Zofran Inj) 4 mg ER BRIDGE PRN IV NAUSEA/VOMITING; Start 09/19/18 at 07:00; Stop 09/20/18 at 06:59 Acetaminophen (Tylenol Tab) 650 mg ER BRIDGE PRN PO .MILD PAIN 1-3 OR TEMP; Start 09/19/18 at 07:00; Stop 09/20/18 at 06:59 Heparin Sodium (Porcine) (Heparin (1000 Units/ml)) 4,000 unit AFTER DIALYSIS CATHETER ; Start 09/19/18 at 07:30 Mannitol 50 ml @ 50 mls/5 min WITH DIALYSIS PRN IV DISEQUILIBRIUM SYNDROME PPX; Start 09/19/18 at 07:30 Albumin Human 100 ml @ 100 mls/hr WITH DIALYSIS PRN IV SBP <90 DURING DIALYSIS; Start 09/19/18 at 07:30 Sodium Chloride (NS) -To prime the dialy... DIRECTED FOR HD PRN IV HD; Start 09/19/18 at 07:30 Allergies: Coded Allergies: hydralazine (Verified Allergy, Unknown, 08/15/18) simvastatin (Verified Allergy, Unknown, 08/15/18) Past Surgical History Past Surgical Hx: other (Lung Biopsy for LLL mass, Permacath HD catheter, CABG ) Family History Significant Family History: no pertinent family hx Social History Alcohol Use: none Smoking Status: Never smoker Drug Use: none Exam/Review of Systems Exam Vitals Vital Signs Date Temp Pulse Resp B/P (MAP) Pulse Ox O2 O2 Flow FiO2 Time Delivery Rate 09/19/18 98.1 52 18 176/143 98 Room Air 08:26 (154) 09/19/18 21 06:53 Constitutional: alert, distress Psych: no complaints Head: normocephalic Eyes: nl conjunctiva ENMT: nl external ears & nose Neck: supple, non-tender Respiratory: clear to auscultation, normal air movement, diminished breath sounds Cardiovascular: regular rate and rhythm, nl pulses Gastrointestinal: soft, non-tender, tender (RUQ) Musculoskeletal: nl extremities to inspection, other Extremities: normal pulses, other (Chest permacath HD catheter ) 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: PRODUCTION LEAD II-XII intact, nl mental status, nl speech, nl strength Skin: nl turgor Lymph: nl lymph nodes Results Result Diagram: 09/19/18 0459 09/19/18 0459 Results 24hrs Laboratory Tests Test 09/19/18 04:54 09/19/18 04:59 09/19/18 06:23 09/19/18 06:36 Bedside Glucose 157 131 124 White Blood Count 4.7 L Red Blood Count 3.93 L Hemoglobin 11.7 L Hematocrit 37.1 L Mean Corpuscular Volume 94.4 Mean Corpuscular 29.8 Hemoglobin Mean Corpuscular 31.5 L Hemoglobin Concent Red Cell Distribution 14.4 Width Platelet Count 82 #L Mean Platelet Volume 12.3 H Immature Granulocytes % 0.200 Neutrophils % 71.7 Lymphocytes % 14.2 L Monocytes % 4.0 Eosinophils % 9.7 H Basophils % 0.2 Nucleated Red Blood 0.0 Cells % Immature Granulocytes # 0.010 Neutrophils # 3.4 Lymphocytes # 0.7 L Monocytes # 0.2 L Eosinophils # 0.5 Basophils # 0.0 Nucleated Red Blood 0.0 Cells # Sodium Level 146 H Potassium Level 8.9 *H Chloride Level 107 Carbon Dioxide Level 19 L Anion Gap 20 H Blood Urea Nitrogen 105 H Creatinine 13.35 H Est Glomerular Filtrat 4 L Rate mL/min Glucose Level 161 Calcium Level 9.1 Total Bilirubin 0.0 L Direct Bilirubin 0.00 Indirect Bilirubin 0.0 Aspartate Amino 45 Transf (AST/SGOT) Alanine 42 Aminotransferase (ALT/SG PT) Alkaline Phosphatase 73 Troponin I 0.027 Total Protein 8.3 H Albumin 4.8 Globulin 3.50 H Albumin/Globulin Ratio 1.37 Lipase 89 Medications Medication Current Medications Dextrose (D50w Syringe) ONCE PRN IV DECREASED GLUCOSE Last administered on 09/19/18at 06:40; Admin Dose 50 ML; Start 09/19/18 at 06:30 Ondansetron HCl (Zofran Inj) 4 mg ER BRIDGE PRN IV NAUSEA/VOMITING; Start 09/19/18 at 07:00; Stop 09/20/18 at 06:59 Acetaminophen (Tylenol Tab) 650 mg ER BRIDGE PRN PO .MILD PAIN 1-3 OR TEMP; Start 09/19/18 at 07:00; Stop 09/20/18 at 06:59 Heparin Sodium (Porcine) (Heparin (1000 Units/ml)) 4,000 unit AFTER DIALYSIS CATHETER ; Start 09/19/18 at 07:30 Mannitol 50 ml @ 50 mls/5 min WITH DIALYSIS PRN IV DISEQUILIBRIUM SYNDROME PPX; Start 09/19/18 at 07:30 Albumin Human 100 ml @ 100 mls/hr WITH DIALYSIS PRN IV SBP <90 DURING DIALYSIS; Start 09/19/18 at 07:30 Sodium Chloride (NS) -To prime the dialy... DIRECTED FOR HD PRN IV HD; Start 09/19/18 at 07:30 VALERIA RODRÍGUEZ MD Sep 19, 2018 09:53
[2018-09-19] MEDS ORDERED: GLUCOSE GEL 15 GRAM TUBE BUCCAL PRN (11:00)
[2018-09-19] MEDS ORDERED: GLUCAGON 1 MG INJ IM PRN (11:00)
[2018-09-19] MEDS ORDERED: GLUCOSE GEL 15 GRAM TUBE PO PRN ×2 (11:00)
[2018-09-19] MEDS: INSULIN ASPART [NOVOLOG] 3 ML PEN SC SCH ×3 (11:30→20:27)
[2018-09-19] MEDS: HEPARIN 1000 UNITS/ML 10 ML INJ CATHETER SCH (11:51)
--- NOTE | 2018-09-19 12:10 | HP ---
Date/Time of Note Date/Time of Note DATE: 09/19/18 TIME: 12:07 Assessment/Plan VTE Prophylaxis SCD applied (from Nsg): Yes Pharmacological prophylaxis: NA/contraindicated Pharm contraindication: thrombocytopenia Lines/Catheters IV Catheter Type (from Nrsg): Saline Lock Urinary Cath still in place: No Assessment/Plan Assessment/Plan - Hyperkalemia, emergent hemodialysis, Dr. Ortez is following in nephrology consultation. - Abdominal pain, abdominal ultrasound notable for distended gallbladder with marked wall thickening. Dr. Winkler is asked to see patient in GI consultation. - Possible cholecystitis, will start Zosyn - LLL mass decreased with pleural consolidation increased in volume per recent CT. - HTN - DM - CAD, Hx of CABG - ESRD on HD - Legal blindness. No acute issue. Further recommendations based on clinical course. Plan of care discussed with Dr. Reagan. Result Diagram: 09/19/18 0459 09/19/18 0459 Results 24hrs Laboratory Tests Test 09/19/18 04:54 09/19/18 04:59 09/19/18 06:23 09/19/18 06:36 Bedside Glucose 157 131 124 White Blood Count 4.7 L Red Blood Count 3.93 L Hemoglobin 11.7 L Hematocrit 37.1 L Mean Corpuscular Volume 94.4 Mean Corpuscular 29.8 Hemoglobin Mean Corpuscular 31.5 L Hemoglobin Concent Red Cell Distribution 14.4 Width Platelet Count 82 #L Mean Platelet Volume 12.3 H Immature Granulocytes % 0.200 Neutrophils % 71.7 Lymphocytes % 14.2 L Monocytes % 4.0 Eosinophils % 9.7 H Basophils % 0.2 Nucleated Red Blood 0.0 Cells % Immature Granulocytes # 0.010 Neutrophils # 3.4 Lymphocytes # 0.7 L Monocytes # 0.2 L Eosinophils # 0.5 Basophils # 0.0 Nucleated Red Blood 0.0 Cells # Sodium Level 146 H Potassium Level 8.9 *H Chloride Level 107 Carbon Dioxide Level 19 L Anion Gap 20 H Blood Urea Nitrogen 105 H Creatinine 13.35 H Est Glomerular Filtrat 4 L Rate mL/min Glucose Level 161 Calcium Level 9.1 Total Bilirubin 0.0 L Direct Bilirubin 0.00 Indirect Bilirubin 0.0 Aspartate Amino 45 Transf (AST/SGOT) Alanine 42 Aminotransferase (ALT/SG PT) Alkaline Phosphatase 73 Troponin I 0.027 Total Protein 8.3 H Albumin 4.8 Globulin 3.50 H Albumin/Globulin Ratio 1.37 Lipase 89 Test 09/19/18 09:05 Hepatitis B Surface NEGATIVE Antigen Hepatitis B Surface POSITIVE H Antibody HPI/ROS Admit Date/Time Admit Date/Time Sep 19, 2018 at 06:33 Hx of Present Illness The patient is a 57-year-old gentleman known to me from previous. Patient was treated for pneumonia and underwent left lower lobe mass biopsy which revealed organizing pneumonia with foci of acute inflammation. Patient was discharged in stable condition with recommendation to repeat CT of the scan. Patient has extensive medical history including coronary artery disease status post CABG 1 year ago, hemodialysis dependent end-stage renal disease, patient stated that he had his hemodialysis on Wednesday, history of diabetes, hypertension, blindness. Patient presented to the emergency room with complaints of abdominal pain nausea and vomiting. Patient noted to have potassium being 8.9 and was giving treatment in ED. Patient is currently admitted to intensive care unit and undergoing emergent hemodialysis. Patient denies any chest pain denies shortness of breath denies bilateral lower extremities pain. ROS 12 point review of system is negative except for what mentioned in HPI PMH/Family/Social Past Medical History Medical History: coronary artery disease, diabetes, hypertension, renal disease Medications Current Medications Dextrose (D50w Syringe) ONCE PRN IV DECREASED GLUCOSE Last administered on 09/19/18at 06:40; Admin Dose 50 ML; Start 09/19/18 at 06:30 Heparin Sodium (Porcine) (Heparin (1000 Units/ml)) 4,000 unit AFTER DIALYSIS CATHETER Last administered on 09/19/18at 11:51; Admin Dose 3,800 UNIT; Start 09/19/18 at 07:30 Mannitol 50 ml @ 50 mls/5 min WITH DIALYSIS PRN IV DISEQUILIBRIUM SYNDROME PPX; Start 09/19/18 at 07:30 Albumin Human 100 ml @ 100 mls/hr WITH DIALYSIS PRN IV SBP <90 DURING DIALY SIS; Start 09/19/18 at 07:30 Sodium Chloride (NS) -To prime the dialy... DIRECTED FOR HD PRN IV HD; Start 09/19/18 at 07:30 Acetaminophen (Tylenol Tab) 650 mg Q6 PRN PO .MILD PAIN 1-3 OR TEMP; Start 09/19/18 at 10:30 Ondansetron HCl (Zofran Inj) 4 mg Q4 PRN IV NAUSEA/VOMITING; Start 09/19/18 at 10:30 Diagnostic Test (Pha) (Accu-Chek) 1 ea 02 XX ; Start 09/20/18 at 02:00 Insulin Aspart (Novolog Insulin Pen) NOVOLOG *MILD* ALGORITHM WITH MEALS BEDTIME SC ; Start 09/19/18 at 11:30 Clonidine (Catapres) 0.1 mg Q4H PRN PO ELEVATED BLOOD PRESSURE Last administered on 09/19/18at 11:53; Admin Dose 0.1 MG; Start 09/19/18 at 10:30 Miscellaneous Information 1 ea NOTE XX ; Start 09/19/18 at 11:00 Glucose (Glutose) 15 gm Q15M PRN PO DECREASED GLUCOSE; Start 09/19/18 at 11:00 Glucose (Glutose) 22.5 gm Q15M PRN PO DECREASED GLUCOSE; Start 09/19/18 at 11:00 Dextrose (D50w Syringe) 25 ml Q15M PRN IV DECREASED GLUCOSE; Start 09/19/18 at 11:00 Dextrose (D50w Syringe) 50 ml Q15M PRN IV DECREASED GLUCOSE; Start 09/19/18 at 11:00 Glucagon (Glucagen) 1 mg Q15M PRN IM DECREASED GLUCOSE; Start 09/19/18 at 11:00 Glucose (Glutose) 15 gm Q15M PRN BUCCAL DECREASED GLUCOSE; Start 09/19/18 at 11:00 Coded Allergies: hydralazine (Verified Allergy, Unknown, 08/15/18) simvastatin (Verified Allergy, Unknown, 08/15/18) Past Surgical History Past Surgical Hx: other (Status post CABG 15 months ago, status post left chest permacath placement) Family History Significant Family History: no pertinent family hx Social History Alcohol Use: none Smoking Status: Never smoker Drug Use: none Exam/Review of Systems Vital Signs Vitals Vital Signs Date Temp Pulse Resp B/P (MAP) Pulse Ox O2 O2 Flow FiO2 Time Delivery Rate 09/19/18 59 16 183/78 100 Room Air 11:00 (113) 09/19/18 97.7 09:00 09/19/18 21 06:53 Exam Constitutional: alert, oriented Head: normocephalic ENMT: nl external ears & nose Neck: supple Respiratory: clear to auscultation Cardiovascular: regular rate and rhythm Gastrointestinal: soft, non-tender Musculoskeletal: nl extremities to inspection Extremities: normal pulses 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: nl mental status Skin: nl MARGARITO Packer Sep 19, 2018 12:10
[2018-09-19] MEDS ORDERED: NON-FORMULARY/PATIENT OWN MED (Atropine Sulfate/0.9 %Sod Chlr (Atropine 0.01%-Ns Eye Drops XX SCH (12:30)
[2018-09-19] MEDS: TAMSULOSIN (SR) 0.4 MG CAP PO SCH (12:46)
[2018-09-19] MEDS: NIFEdipine (XL) 60 MG TAB PO SCH ×2 (12:46→20:20)
[2018-09-19] MEDS: MINOXIDIL 2.5 MG TAB PO SCH ×2 (13:08→23:10)
[2018-09-19] MEDS: FAMOTIDINE 20 MG TAB PO SCH (13:08)
[2018-09-19] MEDS ORDERED: NITROGLYCERIN 2% 1 GM OINT PKT TD SCH (15:30)
[2018-09-19] MEDS: NITROGLYCERIN 50 MG/D5W (PMX) 250 ML IV SCH (15:50)
[2018-09-19] MEDS: SEVELAMER CARBONATE 0.8 GM PKT PO SCH (17:38)
--- NOTE | 2018-09-19 20:20 | CONS ---
DATE OF ADMISSION: 09/19/2018 DATE OF CONSULTATION: TYPE OF CONSULTATION: Gastroenterology. HISTORY OF PRESENT ILLNESS: The patient is a 57-year-old gentleman with a history of renal failure, status post coronary artery bypass graft, legal blindness, history of diabetes mellitus, hypertension , presented to the emergency room with abdominal pain, nausea and vomiting. In the ER, his potassium was 8.9. The patient underwent emergency dialysis and was admitted to the intensive care unit for f urther management. GI consult was called in for abdominal pain, nausea and vomiting. At present, he denies of any abdominal pain. No nausea, no vomiting. No chest pain, no shortness of breath. No G U or SUPERVISOR BRAIDING problem. PAST MEDICAL HISTORY: As described. REVIEW OF SYSTEMS: A 14-point review of system was negative. ALLERGIES: NONE. HOME MEDICATIONS: All reviewed. SOCIAL HISTORY: Never smoked. No alcohol, no recreational drugs. PHYSICAL EXAMINATION: VITAL SIGNS: The patient's blood pressure is still high at 222 systolic over 80. ABDOMEN: Benign. CARDIOVASCULAR: No murmur, gallop or click. LUNGS: Clear. EXTREMITIES: No edema. CENTRAL NERVOUS SYSTEMS: Grossly within normal limits. LABORATORY DATA: His WBC is 4.7, hematocrit is 37.1, platelet count was low at 82,000. The patient' s CMP was grossly within normal limit except for a creatinine of 13 and BUN of 105. DIAGNOSTIC DATA: The patient had a CAT scan of the abdomen and pelvis which showed a distended gallb ladder with marked wall thickening, retained stone in the sigmoid colon with diverticulosis, prominen t prostate and right lower lobe where had a mass-like consolidation and this was biopsied in the past . Again, the gallbladder was taken with trace pericholecystic fluid consistent with diagnosis of cho lecystitis and the bile ducts were normal in diameter. IMPRESSION: 1. Abdominal pain with nausea and vomiting, resolved, due to gastritis, peptic ulcer disease or mayb e due to cholecystitis. 2. lower lobe mass. 3. Hypertension. 4. Diabetes mellitus. 5. Coronary artery disease status post coronary artery bypass graft. 6. Legally blind. 7. 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 8. Hyperkalemia, for which he had emergent dialysis and was also medically treated. PLAN: At this point, is to continue present care. We will start him on PPI and give him Reglan roun d the clock. We will also get a HIDA scan. If he has acute cholecystitis, probably he will need a s urgical consult given the history of diabetes mellitus. Dictated By: MIGUELINA MAS/NTS Conf#: [id number] DID#: [id number] CC: VALERIA RODRÍGUEZ MD; HARMONY PETERSON MD;*End*
[2018-09-19] MEDS ORDERED: MINOXIDIL 2.5 MG TAB PO SCH (21:00)
[2018-09-20] VITALS (67 sets, daily range): BP systolic 114–192; BP diastolic 55–101; PULSE 57–71; RESP 10–21
[2018-09-20] MEDS: METOCLOPRAMIDE 10 MG INJ IV SCH ×4 (00:23→17:51)
[2018-09-20] MEDS: NITROGLYCERIN 50 MG/D5W (PMX) 250 ML IV SCH (00:24)
[2018-09-20] MEDS: ACCU-CHEK XX SCH (02:00)
[2018-09-20] MEDS: INSULIN ASPART [NOVOLOG] 3 ML PEN SC SCH ×4 (07:35→21:00)
--- NOTE | 2018-09-20 07:35 | CONS ---
Assessment/Plan Assessment/Plan Hospital Course (Demo Recall) 57 yo male presented with hyperkalemia Interval hx: BM yesterday soft. Denies nausea. C/O mild RUQ pain with positive Hartman's. LFTs wnl. Hgb stable. CBD measures 3.5mm wnl. 1. Abdominal pain with nausea and vomiting -resolved -gastritis v PUD v cholecystitis 2. Mild acute cholecystitis 3. RT lower lobe mass. 4. Hypertension. 5. Diabetes mellitus. 6. Coronary artery disease status post coronary artery bypass graft. 7. Legally blind. 8. 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 9. Hyperkalemia, for which he had emergent dialysis and was also medically treated. US of upper abd 09/19: 1. Diffuse gallbladder wall thickening and trace pericholecystic fluid, appearance may indicate acute cholecystitis, reactive inflammation or edema. 2. No gallstones identified. 3. Mildly atrophic right kidney, echogenic appearance consistent with chronic medical renal disease. PLAN: Pending HIDA Surgical consult Continue with PPI and Reglan Pain management Pt examined and plan of care discussed with Dr. Winkler Consultation Date/Type/Reason Admit Date/Time Sep 19, 2018 at 06:33 Initial Consult Date 09/19/18 Requesting Provider: JULES BARRAZA MD Date/Time of Note DATE: 09/20/18 TIME: 07:34 Exam/Review of Systems Exam Vitals Vital Signs Date Temp Pulse Resp B/P (MAP) Pulse Ox O2 O2 Flow FiO2 Time Delivery Rate 09/20/18 67 16 127/58 98 Room Air 06:15 (81) 09/20/18 98.0 04:00 09/19/18 21 06:53 Intake and Output 09/19/18 09/19/18 09/20/18 1515:00 23:00 07:00 IntakeIntake Total 300 ml 672 ml 139 ml OutputOutput Total 3400 ml 0 ml BalanceBalance -3100 ml 672 ml 139 ml Constitutional: alert, oriented Eyes: other (left eye cloudy over pupil and iris) ENMT: mucosa pink and moist Respiratory: diminished breath sounds Cardiovascular: regular rate and rhythm Gastrointestinal: soft, tender (TTP in RUQ) 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: nl mental status Results Result Diagram: 09/20/18 0502 09/20/18 0502 Results 24hrs Laboratory Tests Test 09/19/18 09:05 09/19/18 13:01 09/19/18 13:49 09/19/18 17:36 Hepatitis B Surface NEGATIVE Antigen Hepatitis B Surface POSITIVE H Antibody Bedside Glucose 78 87 Potassium Level 4.6 # Test 09/19/18 20:26 09/20/18 05:02 Bedside Glucose 129 White Blood Count 3.1 #L Red Blood Count 3.81 L Hemoglobin 11.3 L Hematocrit 35.6 L Mean Corpuscular Volume 93.4 Mean Corpuscular 29.7 Hemoglobin Mean Corpuscular 31.7 L Hemoglobin Concent Red Cell Distribution 14.2 Width Platelet Count 88 L Mean Platelet Volume 11.3 H Immature Granulocytes % 0.000 L Neutrophils % 50.8 Lymphocytes % 20.1 Monocytes % 8.7 Eosinophils % 20.1 H Basophils % 0.3 Nucleated Red Blood 0.0 Cells % Immature Granulocytes # 0.000 Neutrophils # 1.6 Lymphocytes # 0.6 L Monocytes # 0.3 Eosinophils # 0.6 H Basophils # 0.0 Nucleated Red Blood 0.0 Cells # Sodium Level 141 Potassium Level 5.3 H Chloride Level 97 # Carbon Dioxide Level 29 # Anion Gap 15 H Blood Urea Nitrogen 56 #H Creatinine 9.46 #H Est Glomerular Filtrat 6 L Rate mL/min Glucose Level 115 # Calcium Level 8.3 L Medications Medication Current Medications Dextrose (D50w Syringe) ONCE PRN IV DECREASED GLUCOSE Last administered on 09/19/18at 06:40; Admin Dose 50 ML; Start 09/19/18 at 06:30 Heparin Sodium (Porcine) (Heparin (1000 Units/ml)) 4,000 unit AFTER DIALYSIS CATHETER Last administered on 09/19/18at 11:51; Admin Dose 3,800 UNIT; Start 09/19/18 at 07:30 Mannitol 50 ml @ 50 mls/5 min WITH DIALYSIS PRN IV DISEQUILIBRIUM SYNDROME PPX; Start 09/19/18 at 07:30 Albumin Human 100 ml @ 100 mls/hr WITH DIALYSIS PRN IV SBP <90 DURING DIALYSIS; Start 09/19/18 at 07:30 Sodium Chloride (NS) -To prime the dialy... DIRECTED FOR HD PRN IV HD; Start 09/19/18 at 07:30 Acetaminophen (Tylenol Tab) 650 mg Q6 PRN PO .MILD PAIN 1-3 OR TEMP; Start 09/19/18 at 10:30 Ondansetron HCl (Zofran Inj) 4 mg Q4 PRN IV NAUSEA/VOMITING; Start 09/19/18 at 10:30 Diagnostic Test (Pha) (Accu-Chek) 1 ea 02 XX Last administered on 09/20/18at 02:00; Admin Dose 1 EA; Start 09/20/18 at 02:00 Insulin Aspart (Novolog Insulin Pen) NOVOLOG *MILD* ALGORITHM WITH MEALS BEDTIME SC ; Start 09/19/18 at 11:30 Miscellaneous Information 1 ea NOTE XX ; Start 09/19/18 at 11:00 Glucose (Glutose) 15 gm Q15M PRN PO DECREASED GLUCOSE; Start 09/19/18 at 11:00 Glucose (Glutose) 22.5 gm Q15M PRN PO DECREASED GLUCOSE; Start 09/19/18 at 11:00 Dextrose (D50w Syringe) 25 ml Q15M PRN IV DECREASED GLUCOSE; Start 09/19/18 at 11:00 Dextrose (D50w Syringe) 50 ml Q15M PRN IV DECREASED GLUCOSE; Start 09/19/18 at 11:00 Glucagon (Glucagen) 1 mg Q15M PRN IM DECREASED GLUCOSE; Start 09/19/18 at 11:00 Glucose (Glutose) 15 gm Q15M PRN BUCCAL DECREASED GLUCOSE; Start 09/19/18 at 11:00 Famotidine (Pepcid) 20 mg DAILY PO Last administered on 09/19/18at 13:08; Admin Dose 20 MG; Start 09/19/18 at 13:00 Nifedipine (Procardia Xl) 60 mg BID PO Last administered on 09/19/18at 20:20; Admin Dose 60 MG; Start 09/19/18 at 12:30 Sevelamer Carbonate (Renvela) 0.8 gm WITH MEALS PO Last administered on 09/19/18at 17:38; Admin Dose 0.8 GM; Start 09/19/18 at 17:35 Tamsulosin HCl (Flomax) 0.4 mg DAILY PO Last administered on 09/19/18at 12:46; Admin Dose 0.4 MG; Start 09/19/18 at 12:30 Miscellaneous Information 15 ml BID OP ; Start 09/19/18 at 12:30; Status UNV Minoxidil (Loniten) 5 mg BID PO Last administered on 09/19/18at 23:10; Admin Dose 5 MG; Start 09/19/18 at 13:30 Clonidine (Catapres) 0.2 mg Q6 PRN PO ELEVATED BLOOD PRESSURE Last administered on 09/19/18at 17:38; Admin Dose 0.2 MG; Start 09/19/18 at 15:30 Nitroglycerin/ Dextrose 250 ml @ 1.5 mls/hr TITRATE IV Last administered on 09/20/18 00:24; Admin Dose 1.5 MLS/HR; Start 09/19/18 at 15:30 Metoclopramide HCl (Reglan) 5 mg Q6 IV Last administered on 09/20/18at 06:14; Admin Dose 5 MG; Start 09/20/18 at 00:00 TERI HALL Sep 20, 2018 07:34
[2018-09-20] MEDS: SEVELAMER CARBONATE 0.8 GM PKT PO SCH ×3 (07:42→17:51)
[2018-09-20] MEDS: TAMSULOSIN (SR) 0.4 MG CAP PO SCH (07:43)
[2018-09-20] MEDS: MINOXIDIL 2.5 MG TAB PO SCH ×2 (07:43→21:20)
[2018-09-20] MEDS: NIFEdipine (XL) 60 MG TAB PO SCH ×2 (07:44→21:21)
[2018-09-20] MEDS: FAMOTIDINE 20 MG TAB PO SCH (07:44)
--- NOTE | 2018-09-20 08:48 | CONS ---
Assessment/Plan Assessment/Plan Assessment/Plan (Daily) 1. acute hyperkalemia 2. Hypertensive emergency on NTG drip 3. ESRD on HD MWF with acute hyperklaemia and acute fluid overload 4. Possible Cholecysitits 5. H/o CAD s/p CABG 6. H/O HTN 7. H/o HL 8. H/o DM II Plan: s/p HD yesterday 1.4 L removed, BP still high, on NTG drip awaiting HD plan today Nifedipine 60mg pO BID with Minoxidil 5 mg BID, clonindine prn IV hydralazine pnr Plan for another HD tomorrow, then we will keep pt on MWF schedule IV abx zosyn to cover for infeciton/cholecystitis will follow up Consultation Date/Type/Reason Admit Date/Time Sep 19, 2018 at 06:33 Initial Consult Date 09/19/18 Type of Consult NEPHROLOGY Requesting Provider: JULES BARRAZA MD Date/Time of Note DATE: 09/20/18 TIME: 08:47 24 HR Interval Summary Free Text/Dictation S/p HD yesterday for hyperkalemia, today K normal, BP still high requiring NTG drip, Plan for another HD today Exam/Review of Systems Exam Vitals Vital Signs Date Temp Pulse Resp B/P (MAP) Pulse Ox O2 O2 Flow FiO2 Time Delivery Rate 09/20/18 98.2 71 15 157/62 99 Room Air 08:00 (93) 09/19/18 21 06:53 Intake and Output 09/19/18 09/19/18 09/20/18 1515:00 23:00 07:00 IntakeIntake Total 300 ml 672 ml 139 ml OutputOutput Total 3400 ml 0 ml BalanceBalance -3100 ml 672 ml 139 ml Exam Constitutional: alert, distress Respiratory: clear to auscultation, normal air movement, diminished breath sounds Cardiovascular: regular rate and rhythm, nl pulses Gastrointestinal: soft, non-tender, tender (RUQ) Musculoskeletal: nl extremities to inspection, other Extremities: normal pulses, other (Chest permacath HD catheter ) 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: LATHE TURNER II-XII intact, nl mental status, nl speech, nl strength Results Result Diagram: 09/20/18 0502 09/20/18 0502 Results 24hrs Laboratory Tests Test 09/19/18 09:05 09/19/18 13:01 09/19/18 13:49 09/19/18 17:36 Hepatitis B Surface NEGATIVE Antigen Hepatitis B Surface POSITIVE H Antibody Bedside Glucose 78 87 Potassium Level 4.6 # Test 09/19/18 20:26 09/20/18 05:02 09/20/18 07:39 Bedside Glucose 129 107 White Blood Count 3.1 #L Red Blood Count 3.81 L Hemoglobin 11.3 L Hematocrit 35.6 L Mean Corpuscular Volume 93.4 Mean Corpuscular 29.7 Hemoglobin Mean Corpuscular 31.7 L Hemoglobin Concent Red Cell Distribution 14.2 Width Platelet Count 88 L Mean Platelet Volume 11.3 H Immature Granulocytes % 0.000 L Neutrophils % 50.8 Lymphocytes % 20.1 Monocytes % 8.7 Eosinophils % 20.1 H Basophils % 0.3 Nucleated Red Blood 0.0 Cells % Immature Granulocytes # 0.000 Neutrophils # 1.6 Lymphocytes # 0.6 L Monocytes # 0.3 Eosinophils # 0.6 H Basophils # 0.0 Nucleated Red Blood 0.0 Cells # Sodium Level 141 Potassium Level 5.3 H Chloride Level 97 # Carbon Dioxide Level 29 # Anion Gap 15 H Blood Urea Nitrogen 56 #H Creatinine 9.46 #H Est Glomerular Filtrat 6 L Rate mL/min Glucose Level 115 # Calcium Level 8.3 L Medications Medication Current Medications Dextrose (D50w Syringe) ONCE PRN IV DECREASED GLUCOSE Last administered on 09/19/18at 06:40; Admin Dose 50 ML; Start 09/19/18 at 06:30 Heparin Sodium (Porcine) (Heparin (1000 Units/ml)) 4,000 unit AFTER DIALYSIS CATHETER Last administered on 09/19/18at 11:51; Admin Dose 3,800 UNIT; Start 09/19/18 at 07:30 Mannitol 50 ml @ 50 mls/5 min WITH DIALYSIS PRN IV DISEQUILIBRIUM SYNDROME PPX; Start 09/19/18 at 07:30 Albumin Human 100 ml @ 100 mls/hr WITH DIALYSIS PRN IV SBP <90 DURING DIALYSIS; Start 09/19/18 at 07:30 Sodium Chloride (NS) -To prime the dialy... DIRECTED FOR HD PRN IV HD; Start 09/19/18 at 07:30 Acetaminophen (Tylenol Tab) 650 mg Q6 PRN PO .MILD PAIN 1-3 OR TEMP; Start 09/19/18 at 10:30 Ondansetron HCl (Zofran Inj) 4 mg Q4 PRN IV NAUSEA/VOMITING; Start 09/19/18 at 10:30 Diagnostic Test (Pha) (Accu-Chek) 1 ea 02 XX Last administered on 09/20/18at 02:00; Admin Dose 1 EA; Start 09/20/18 at 02:00 Insulin Aspart (Novolog Insulin Pen) NOVOLOG *MILD* ALGORITHM WITH MEALS BEDTIME SC ; Start 09/19/18 at 11:30 Miscellaneous Information 1 ea NOTE XX ; Start 09/19/18 at 11:00 Glucose (Glutose) 15 gm Q15M PRN PO DECREASED GLUCOSE; Start 09/19/18 at 11:00 Glucose (Glutose) 22.5 gm Q15M PRN PO DECREASED GLUCOSE; Start 09/19/18 at 11:00 Dextrose (D50w Syringe) 25 ml Q15M PRN IV DECREASED GLUCOSE; Start 09/19/18 at 11:00 Dextrose (D50w Syringe) 50 ml Q15M PRN IV DECREASED GLUCOSE; Start 09/19/18 at 11:00 Glucagon (Glucagen) 1 mg Q15M PRN IM DECREASED GLUCOSE; Start 09/19/18 at 11:00 Glucose (Glutose) 15 gm Q15M PRN BUCCAL DECREASED GLUCOSE; Start 09/19/18 at 11:00 Famotidine (Pepcid) 20 mg DAILY PO Last administered on 09/20/18at 07:44; Admin Dose 20 MG; Start 09/19/18 at 13:00 Nifedipine (Procardia Xl) 60 mg BID PO Last administered on 09/20/18at 07:44; Admin Dose 60 MG; Start 09/19/18 at 12:30 Sevelamer Carbonate (Renvela) 0.8 gm WITH MEALS PO Last administered on 09/20/18at 07:42; Admin Dose 0.8 GM; Start 09/19/18 at 17:35 Tamsulosin HCl (Flomax) 0.4 mg DAILY PO Last administered on 09/20/18at 07:43; Admin Dose 0.4 MG; Start 09/19/18 at 12:30 Miscellaneous Information 15 ml BID OP ; Start 09/19/18 at 12:30; Status UNV Minoxidil (Loniten) 5 mg BID PO Last administered on 09/20/18 07:43; Admin Dose 5 MG; Start 09/19/18 at 13:30 Clonidine (Catapres) 0.2 mg Q6 PRN PO ELEVATED BLOOD PRESSURE Last administered on 09/19/18 17:38; Admin Dose 0.2 MG; Start 09/19/18 at 15:30 Nitroglycerin/ Dextrose 250 ml @ 1.5 mls/hr TITRATE IV Last administered on 09/20/18 00:24; Admin Dose 1.5 MLS/HR; Start 09/19/18 at 15:30 Metoclopramide HCl (Reglan) 5 mg Q6 IV Last administered on 09/20/18 06:14; Admin Dose 5 MG; Start 09/20/18 at 00:00 VALERIA RODRÍGUEZ MD Sep 20, 2018 08:48
--- NOTE | 2018-09-20 15:05 | PN ---
Date/Time of Note Date/Time of Note DATE: 09/20/18 TIME: 15:02 Assessment/Plan VTE Prophylaxis Risk score (from Nsg)>0 risk: 3 SCD applied (from Nsg): Yes Pharmacological prophylaxis: heparin Lines/Catheters IV Catheter Type (from Nrsg): Peripheral IV Urinary Cath still in place: No Assessment/Plan Hospital Course Patient is taking to nuclear medicine for HIDA scan, status post urgent hemodialysis yesterday, potassium is 5.3 today. Assessment/Plan - Hyperkalemia, resolved s/p emergent hemodialysis, Dr. Ortez is following in nephrology consultation. - Abdominal pain, abdominal ultrasound notable for distended gallbladder with marked wall thickening. Dr. Winkler is following in GI consultation. - Possible cholecystitis, will start Zosyn - LLL mass decreased with pleural consolidation increased in volume per recent CT. Dr Mueller is asked to see pt in pulmonology consultation. - HTN - DM - CAD, Hx of CABG - ESRD on HD - Legal blindness. No acute issue. Further recommendations based on clinical course. Plan of care discussed with Dr. Reagan. Result Diagram: 09/20/18 0502 09/20/18 0502 Results 24hrs Laboratory Tests Test 09/19/18 17:36 09/19/18 20:26 09/20/18 05:02 09/20/18 07:39 Bedside Glucose 87 129 107 White Blood Count 3.1 #L Red Blood Count 3.81 L Hemoglobin 11.3 L Hematocrit 35.6 L Mean Corpuscular Volume 93.4 Mean Corpuscular 29.7 Hemoglobin Mean Corpuscular 31.7 L Hemoglobin Concent Red Cell Distribution 14.2 Width Platelet Count 88 L Mean Platelet Volume 11.3 H Immature Granulocytes % 0.000 L Neutrophils % 50.8 Lymphocytes % 20.1 Monocytes % 8.7 Eosinophils % 20.1 H Basophils % 0.3 Nucleated Red Blood 0.0 Cells % Immature Granulocytes # 0.000 Neutrophils # 1.6 Lymphocytes # 0.6 L Monocytes # 0.3 Eosinophils # 0.6 H Basophils # 0.0 Nucleated Red Blood 0.0 Cells # Sodium Level 141 Potassium Level 5.3 H Chloride Level 97 # Carbon Dioxide Level 29 # Anion Gap 15 H Blood Urea Nitrogen 56 #H Creatinine 9.46 #H Est Glomerular Filtrat 6 L Rate mL/min Glucose Level 115 # Calcium Level 8.3 L Exam/Review of Systems Exam Vitals Vital Signs Date Temp Pulse Resp B/P (MAP) Pulse Ox O2 O2 Flow FiO2 Time Delivery Rate 09/20/18 61 14 185/80 98 13:00 (115) 09/20/18 97.8 Room Air 12:00 09/19/18 21 06:53 Intake and Output 09/19/18 09/19/18 09/20/18 1515:00 23:00 07:00 IntakeIntake Total 300 ml 672 ml 139 ml OutputOutput Total 3400 ml 0 ml BalanceBalance -3100 ml 672 ml 139 ml Results Results 24hrs Laboratory Tests Test 09/19/18 17:36 09/19/18 20:26 09/20/18 05:02 09/20/18 07:39 Bedside Glucose 87 129 107 White Blood Count 3.1 #L Red Blood Count 3.81 L Hemoglobin 11.3 L Hematocrit 35.6 L Mean Corpuscular Volume 93.4 Mean Corpuscular 29.7 Hemoglobin Mean Corpuscular 31.7 L Hemoglobin Concent Red Cell Distribution 14.2 Width Platelet Count 88 L Mean Platelet Volume 11.3 H Immature Granulocytes % 0.000 L Neutrophils % 50.8 Lymphocytes % 20.1 Monocytes % 8.7 Eosinophils % 20.1 H Basophils % 0.3 Nucleated Red Blood 0.0 Cells % Immature Granulocytes # 0.000 Neutrophils # 1.6 Lymphocytes # 0.6 L Monocytes # 0.3 Eosinophils # 0.6 H Basophils # 0.0 Nucleated Red Blood 0.0 Cells # Sodium Level 141 Potassium Level 5.3 H Chloride Level 97 # Carbon Dioxide Level 29 # Anion Gap 15 H Blood Urea Nitrogen 56 #H Creatinine 9.46 #H Est Glomerular Filtrat 6 L Rate mL/min Glucose Level 115 # Calcium Level 8.3 L Medications Medication Current Medications Dextrose (D50w Syringe) ONCE PRN IV DECREASED GLUCOSE Last administered on 09/19/18at 06:40; Admin Dose 50 ML; Start 09/19/18 at 06:30 Heparin Sodium (Porcine) (Heparin (1000 Units/ml)) 4,000 unit AFTER DIALYSIS CATHETER Last administered on 09/19/18at 11:51; Admin Dose 3,800 UNIT; Start 09/19/18 at 07:30 Mannitol 50 ml @ 50 mls/5 min WITH DIALYSIS PRN IV DISEQUILIBRIUM SYNDROME PPX; Start 09/19/18 at 07:30 Albumin Human 100 ml @ 100 mls/hr WITH DIALYSIS PRN IV SBP <90 DURING DIALYSIS; Start 09/19/18 at 07:30 Sodium Chloride (NS) -To prime the dialy... DIRECTED FOR HD PRN IV HD; Start 09/19/18 at 07:30 Acetaminophen (Tylenol Tab) 650 mg Q6 PRN PO .MILD PAIN 1-3 OR TEMP; Start 09/19/18 at 10:30 Ondansetron HCl (Zofran Inj) 4 mg Q4 PRN IV NAUSEA/VOMITING; Start 09/19/18 at 10:30 Diagnostic Test (Pha) (Accu-Chek) 1 ea 02 XX Last administered on 09/20/18at 02:00; Admin Dose 1 EA; Start 09/20/18 at 02:00 Insulin Aspart (Novolog Insulin Pen) NOVOLOG *MILD* ALGORITHM WITH MEALS BEDTIME SC ; Start 09/19/18 at 11:30 Miscellaneous Information 1 ea NOTE XX ; Start 09/19/18 at 11:00 Glucose (Glutose) 15 gm Q15M PRN PO DECREASED GLUCOSE; Start 09/19/18 at 11:00 Glucose (Glutose) 22.5 gm Q15M PRN PO DECREASED GLUCOSE; Start 09/19/18 at 11:00 Dextrose (D50w Syringe) 25 ml Q15M PRN IV DECREASED GLUCOSE; Start 09/19/18 at 11:00 Dextrose (D50w Syringe) 50 ml Q15M PRN IV DECREASED GLUCOSE; Start 09/19/18 at 11:00 Glucagon (Glucagen) 1 mg Q15M PRN IM DECREASED GLUCOSE; Start 09/19/18 at 11:00 Glucose (Glutose) 15 gm Q15M PRN BUCCAL DECREASED GLUCOSE; Start 09/19/18 at 11:00 Famotidine (Pepcid) 20 mg DAILY PO Last administered on 09/20/18at 07:44; Admin Dose 20 MG; Start 09/19/18 at 13:00 Nifedipine (Procardia Xl) 60 mg BID PO Last administered on 09/20/18at 07:44; Admin Dose 60 MG; Start 09/19/18 at 12:30 Sevelamer Carbonate (Renvela) 0.8 gm WITH MEALS PO Last administered on 09/20/18at 07:42; Admin Dose 0.8 GM; Start 09/19/18 at 17:35 Tamsulosin HCl (Flomax) 0.4 mg DAILY PO Last administered on 09/20/18 07:43; Admin Dose 0.4 MG; Start 09/19/18 at 12:30 Miscellaneous Information 15 ml BID OP ; Start 09/19/18 at 12:30; Status UNV Minoxidil (Loniten) 5 mg BID PO Last administered on 09/20/18 07:43; Admin Dose 5 MG; Start 09/19/18 at 13:30 Clonidine (Catapres) 0.2 mg Q6 PRN PO ELEVATED BLOOD PRESSURE Last administered on 09/20/18 14:57; Admin Dose 0.2 MG; Start 09/19/18 at 15:30 Nitroglycerin/ Dextrose 250 ml @ 1.5 mls/hr TITRATE IV Last administered on 09/20/18 00:24; Admin Dose 1.5 MLS/HR; Start 09/19/18 at 15:30 Metoclopramide HCl (Reglan) 5 mg Q6 IV Last administered on 09/20/18 06:14; Admin Dose 5 MG; Start 09/20/18 at 00:00 MARGARITO DAMICO Sep 20, 2018 15:05
[2018-09-20] MEDS: ARTIFICIAL TEARS 15 ML OPH BOTH EYES SCH (21:15)
[2018-09-21] VITALS (93 sets, daily range): BP systolic 114–217; BP diastolic 57–108; PULSE 55–95; RESP 12–24
[2018-09-21] MEDS: ACCU-CHEK XX SCH (02:17)
[2018-09-21] MEDS: HEPARIN 1000 UNITS/ML 10 ML INJ CATHETER SCH ×2 (02:25→14:53)
[2018-09-21] MEDS: METOCLOPRAMIDE 10 MG INJ IV SCH ×4 (06:02→17:04)
[2018-09-21] MEDS: INSULIN ASPART [NOVOLOG] 3 ML PEN SC SCH ×4 (07:35→20:51)
[2018-09-21] MEDS: NIFEdipine (XL) 60 MG TAB PO SCH ×2 (08:37→20:44)
[2018-09-21] MEDS: SEVELAMER CARBONATE 0.8 GM PKT PO SCH ×3 (08:37→17:04)
[2018-09-21] MEDS: FAMOTIDINE 20 MG TAB PO SCH (08:37)
[2018-09-21] MEDS: MINOXIDIL 2.5 MG TAB PO SCH ×2 (08:38→20:45)
[2018-09-21] MEDS: TAMSULOSIN (SR) 0.4 MG CAP PO SCH (08:38)
[2018-09-21] MEDS: ARTIFICIAL TEARS 15 ML OPH BOTH EYES SCH ×4 (08:39→20:45)
--- NOTE | 2018-09-21 08:40 | CONS ---
Assessment/Plan Assessment/Plan Assessment/Plan (Daily) 1. acute hyperkalemia - Improved 2. Hypertensive emergency on NTG drip 3. ESRD on HD MWF with acute hyperklaemia and acute fluid overload 4. Possible Cholecysitits 5. H/o CAD s/p CABG 6. H/O HTN 7. H/o HL 8. H/o DM II Plan: s/p HD 2 days in a row, plan for HD today also -will keep pt on MWF schedule Nifedipine 60mg pO BID with Minoxidil 5 mg BID, clonindine prn IV hydralazine pnr IV abx zosyn to cover for infeciton/cholecystitis will follow up Consultation Date/Type/Reason Admit Date/Time Sep 19, 2018 at 06:33 Initial Consult Date 09/19/18 Type of Consult NEPHROLOGY Requesting Provider: JULES BARRAZA MD Date/Time of Note DATE: 09/21/18 TIME: 08:40 24 HR Interval Summary Free Text/Dictation s/p HD 2 days in a row, Now BP controlled, plan for HD today Exam/Review of Systems Exam Vitals Vital Signs Date Temp Pulse Resp B/P (MAP) Pulse Ox O2 O2 Flow FiO2 Time Delivery Rate 09/21/18 60 14 152/72 98 Room Air 07:15 (98) 09/21/18 98.5 04:00 09/19/18 21 06:53 Intake and Output 09/20/18 09/20/18 09/21/18 1414:59 22:59 06:59 IntakeIntake Total 148 ml 200 ml 21 ml OutputOutput Total 3100 ml BalanceBalance 148 ml 200 ml -3079 ml Exam Constitutional: alert, distress Respiratory: clear to auscultation, normal air movement, diminished breath sounds Cardiovascular: regular rate and rhythm, nl pulses Gastrointestinal: soft, non-tender, tender (RUQ) Musculoskeletal: nl extremities to inspection, other Extremities: normal pulses, other (Chest permacath HD catheter ) 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: DISPERSION MIXER II-XII intact, nl mental status, nl speech, nl strength Results Result Diagram: 09/20/18 050 09/21/18 8036 Results 24hrs Laboratory Tests Test 09/20/18 17:04 09/20/18 21:23 09/21/18 04:46 09/21/18 08:29 Bedside Glucose 95 129 97 Sodium Level 138 Potassium Level 4.8 Chloride Level 96 L Carbon Dioxide Level 30 Anion Gap 12 Blood Urea Nitrogen 31 #H Creatinine 6.28 #H Est Glomerular Filtrat 9 L Rate mL/min Glucose Level 103 Calcium Level 8.3 L Total Bilirubin 0.2 Direct Bilirubin 0.00 Indirect Bilirubin 0.2 Aspartate Amino 31 Transf (AST/SGOT) Alanine 31 Aminotransferase (ALT/SG PT) Alkaline Phosphatase 65 Total Protein 7.7 Albumin 4.4 Globulin 3.30 H Albumin/Globulin Ratio 1.33 Medications Medication Current Medications Dextrose (D50w Syringe) ONCE PRN IV DECREASED GLUCOSE Last administered on 09/19/18at 06:40; Admin Dose 50 ML; Start 09/19/18 at 06:30 Heparin Sodium (Porcine) (Heparin (1000 Units/ml)) 4,000 unit AFTER DIALYSIS CATHETER Last administered on 09/21/18at 02:25; Admin Dose 3,800 UNIT; Start 09/19/18 at 07:30 Mannitol 50 ml @ 50 mls/5 min WITH DIALYSIS PRN IV DISEQUILIBRIUM SYNDROME PPX; Start 09/19/18 at 07:30 Albumin Human 100 ml @ 100 mls/hr WITH DIALYSIS PRN IV SBP <90 DURING DIALYSIS; Start 09/19/18 at 07:30 Sodium Chloride (NS) -To prime the dialy... DIRECTED FOR HD PRN IV HD; Start 09/19/18 at 07:30 Acetaminophen (Tylenol Tab) 650 mg Q6 PRN PO .MILD PAIN 1-3 OR TEMP; Start 09/19/18 at 10:30 Ondansetron HCl (Zofran Inj) 4 mg Q4 PRN IV NAUSEA/VOMITING; Start 09/19/18 at 10:30 Diagnostic Test (Pha) (Accu-Chek) 1 ea 02 XX Last administered on 09/21/18at 02:17; Admin Dose 1 EA; Start 09/20/18 at 02:00 Insulin Aspart (Novolog Insulin Pen) NOVOLOG *MILD* ALGORITHM WITH MEALS BEDTIME SC ; Start 09/19/18 at 11:30 Miscellaneous Information 1 ea NOTE XX ; Start 09/19/18 at 11:00 Glucose (Glutose) 15 gm Q15M PRN PO DECREASED GLUCOSE; Start 09/19/18 at 11:00 Glucose (Glutose) 22.5 gm Q15M PRN PO DECREASED GLUCOSE; Start 09/19/18 at 11:00 Dextrose (D50w Syringe) 25 ml Q15M PRN IV DECREASED GLUCOSE; Start 09/19/18 at 11:00 Dextrose (D50w Syringe) 50 ml Q15M PRN IV DECREASED GLUCOSE; Start 09/19/18 at 11:00 Glucagon (Glucagen) 1 mg Q15M PRN IM DECREASED GLUCOSE; Start 09/19/18 at 11:00 Glucose (Glutose) 15 gm Q15M PRN BUCCAL DECREASED GLUCOSE; Start 09/19/18 at 11:00 Famotidine (Pepcid) 20 mg DAILY PO Last administered on 09/21/18 08:37; Admin Dose 20 MG; Start 09/19/18 at 13:00 Nifedipine (Procardia Xl) 60 mg BID PO Last administered on 09/21/18 08:37; Admin Dose 60 MG; Start 09/19/18 at 12:30 Sevelamer Carbonate (Renvela) 0.8 gm WITH MEALS PO Last administered on 09/21/18 08:37; Admin Dose 0.8 GM; Start 09/19/18 at 17:35 Tamsulosin HCl (Flomax) 0.4 mg DAILY PO Last administered on 09/21/18 08:38; Admin Dose 0.4 MG; Start 09/19/18 at 12:30 Miscellaneous Information 15 ml BID OP ; Start 09/19/18 at 12:30; Status UNV Minoxidil (Loniten) 5 mg BID PO Last administered on 09/21/18 08:38; Admin Dose 5 MG; Start 09/19/18 at 13:30 Clonidine (Catapres) 0.2 mg Q6 PRN PO ELEVATED BLOOD PRESSURE Last administered on 09/20/18 14:57; Admin Dose 0.2 MG; Start 09/19/18 at 15:30 Nitroglycerin/ Dextrose 250 ml @ 1.5 mls/hr TITRATE IV Last administered on 09/20/18 00:24; Admin Dose 1.5 MLS/HR; Start 09/19/18 at 15:30 Metoclopramide HCl (Reglan) 5 mg Q6 IV Last administered on 09/21/18 06:02; Admin Dose 5 MG; Start 09/20/18 at 00:00 Eye Lubricant (Artificial Tears Oph) 2 drop QID BOTH EYES Last administered on 09/21/18at 08:39; Admin Dose 2 DROP; Start 09/20/18 at 20:00 VALERIA RODRÍGUEZ MD Sep 21, 2018 08:40
[2018-09-21] MEDS: NITROGLYCERIN 50 MG/D5W (PMX) 250 ML IV SCH (09:00)
--- NOTE | 2018-09-21 09:11 | CONS ---
Assessment/Plan Assessment/Plan Assessment/Plan (Daily) Chest x-ray showing cardiomegaly without any evidence of CHF. Patient is currently on nitroglycerin drip Assessment and recommendations; 1. Patient admitted with mild shortness of breath with interval improvement status post urgent hemodialysis for acute hyperkalemia. 2. Ultrasound abdomen showing possible acute cholecystitis however HIDA scan is negative patient does not have any fever, has normal white cell count and currently is asymptomatic with a benign abdomen exam. 3. Cardiomegaly on chest x-ray without any overt CHF. 4. History of hypertension. 5. Diabetes. 6. Anemia and thrombocytopenia. 7. BPH. Continue with supportive care. Oral antihypertensive regimen has been initiat ed. Once the patient is off nitroglycerin drip, he can be transferred to the medical floor. Consultation Date/Type/Reason Admit Date/Time Sep 19, 2018 at 06:33 Date of Consultation: Sep 21, 2018 Type of Consult Pulmonary Pulmonary consult requested for evaluation of shortness of breath. Patient is a pleasant 57-year-old male who came into the emergency room with complaints of nausea vomiting and mild shortness of breath. Upon further evaluation patient was diagnosed with severe hyperkalemia, also ultrasound abdomen was done which was indicative of possibly acute cholecystitis. However HIDA scan is negative and the patient also denies any further abdominal pain, nausea vomiting. Patient was emergently hemodialyzed yesterday because of hypertension, was transferred to ICU and currently maintained on nitroglycerin drip. Patient denies any shortness of breath, any chest pain, fever, cough, sputum production. Past medical history; 1. Hypertension. 2. End-stage renal disease, hemodialysis. 3. Chronic anemia. 4. Diabetes. 5. BPH. 6. Recent admission for left lower lobe pneumonia, status post biopsy which revealed organizing pneumonia. 7. Left corneal opacity. 8. Prior CABG. Medications; reviewed. Allergies; as outlined above. Social history; noncontributory. Family history; patient is single, has 2 children. Occupational history; patient is on disability. Review of systems; denies any headache, visual changes, complains of left eye blindness. Denies any further shortness of breath. Any coughing, wheezing, sputum production. Denies any abdominal pain, nausea vomiting. Any melena or hematochezia. Any edema orthopnea. Any weight change. General exam; middle-aged male, awake and alert. Currently no distress. Date/Time of Note DATE: 09/21/18 TIME: 09:04 Past Medical History Medical History: coronary artery disease, diabetes, high cholesterol, hypertension, other (ESRD on HD , LLL mass s/p Lung biopsy revealed Pneumonia and foci of inflammation ) Home Meds Active Scripts Nifedipine (Procardia Xl) 60 Mg Tab.er.24, 60 MG PO BID for 30 Days, TAB Prov:MARGARITO DAMICO 08/25/18 Minoxidil* (Lonitin*) 2.5 Mg Tab, 5 MG PO BID for 30 Days, TAB Prov:MARGARITO DAMICO 08/25/18 Labetalol Hcl* (Labetalol Hcl*) 200 Mg Tablet, 400 MG PO BID for 30 Days, TAB Prov:MARGARITO DAMICO 08/25/18 Reported Medications Isosorbide Mononitrate* (Isosorbide Mononitrate*) 60 Mg Tab.er.24h, 60 MG PO DAILY, TAB 08/15/18 Losartan Potassium* (Losartan Potassium*) 50 Mg Tablet, 50 MG PO DAILY, TAB 08/15/18 Famotidine* (Famotidine*) 20 Mg Tablet, 20 MG PO BID, #60 TAB 08/15/18 Atropine Sulfate/0.9 %Sod Chlr (Atropine 0.01%-Ns Eye Drops) 10 Ml Drops, 15 ML OP BID, BOTTLE 08/15/18 Tamsulosin Hcl* (Tamsulosin Hcl*) 0.4 Mg Cap.er.24h, 0.4 MG PO DAILY, CAP 08/15/18 Clonidine Hcl* (Clonidine Hcl*) 0.1 Mg Tab, 0.2 MG PO BID PRN for ELEVATED BLOOD PRESSURE, TAB 08/15/18 Sevelamer Carbonate* (Renvela*) 800 Mg Tablet, 0.8 GM PO WITH MEALS, TAB 08/15/18 Medications Current Medications Dextrose (D50w Syringe) ONCE PRN IV DECREASED GLUCOSE Last administered on 09/19/18at 06:40; Admin Dose 50 ML; Start 09/19/18 at 06:30 Heparin Sodium (Porcine) (Heparin (1000 Units/ml)) 4,000 unit AFTER DIALYSIS CATHETER Last administered on 09/21/18at 02:25; Admin Dose 3,800 UNIT; Start 09/19/18 at 07:30 Mannitol 50 ml @ 50 mls/5 min WITH DIALYSIS PRN IV DISEQUILIBRIUM SYNDROME PPX; Start 09/19/18 at 07:30 Albumin Human 100 ml @ 100 mls/hr WITH DIALYSIS PRN IV SBP <90 DURING DIALYSIS; Start 09/19/18 at 07:30 Sodium Chloride (NS) -To prime the dialy... DIRECTED FOR HD PRN IV HD; Start 09/19/18 at 07:30 Acetaminophen (Tylenol Tab) 650 mg Q6 PRN PO .MILD PAIN 1-3 OR TEMP; Start 09/19/18 at 10:30 Ondansetron HCl (Zofran Inj) 4 mg Q4 PRN IV NAUSEA/VOMITING; Start 09/19/18 at 10:30 Diagnostic Test (Pha) (Accu-Chek) 1 ea 02 XX Last administered on 09/21/18at 02:17; Admin Dose 1 EA; Start 09/20/18 at 02:00 Insulin Aspart (Novolog Insulin Pen) NOVOLOG *MILD* ALGORITHM WITH MEALS BEDTIME SC ; Start 09/19/18 at 11:30 Miscellaneous Information 1 ea NOTE XX ; Start 09/19/18 at 11:00 Glucose (Glutose) 15 gm Q15M PRN PO DECREASED GLUCOSE; Start 09/19/18 at 11:00 Glucose (Glutose) 22.5 gm Q15M PRN PO DECREASED GLUCOSE; Start 09/19/18 at 11:00 Dextrose (D50w Syringe) 25 ml Q15M PRN IV DECREASED GLUCOSE; Start 09/19/18 at 11:00 Dextrose (D50w Syringe) 50 ml Q15M PRN IV DECREASED GLUCOSE; Start 09/19/18 at 11:00 Glucagon (Glucagen) 1 mg Q15M PRN IM DECREASED GLUCOSE; Start 09/19/18 at 11:00 Glucose (Glutose) 15 gm Q15M PRN BUCCAL DECREASED GLUCOSE; Start 09/19/18 at 11:00 Famotidine (Pepcid) 20 mg DAILY PO Last administered on 09/21/18at 08:37; Admin Dose 20 MG; Start 09/19/18 at 13:00 Nifedipine (Procardia Xl) 60 mg BID PO Last administered on 09/21/18at 08:37; Admin Dose 60 MG; Start 09/19/18 at 12:30 Sevelamer Carbonate (Renvela) 0.8 gm WITH MEALS PO Last administered on 09/21/18 08:37; Admin Dose 0.8 GM; Start 09/19/18 at 17:35 Tamsulosin HCl (Flomax) 0.4 mg DAILY PO Last administered on 09/21/18 08:38; Admin Dose 0.4 MG; Start 09/19/18 at 12:30 Miscellaneous Information 15 ml BID OP ; Start 09/19/18 at 12:30; Status UNV Minoxidil (Loniten) 5 mg BID PO Last administered on 09/21/18 08:38; Admin Dose 5 MG; Start 09/19/18 at 13:30 Clonidine (Catapres) 0.2 mg Q6 PRN PO ELEVATED BLOOD PRESSURE Last administered on 09/20/18 14:57; Admin Dose 0.2 MG; Start 09/19/18 at 15:30 Nitroglycerin/ Dextrose 250 ml @ 1.5 mls/hr TITRATE IV Last administered on 09/21/18 09:00; Admin Dose 1.5 MLS/HR; Start 09/19/18 at 15:30 Metoclopramide HCl (Reglan) 5 mg Q6 IV Last administered on 09/21/18 06:02; Admin Dose 5 MG; Start 09/20/18 at 00:00 Eye Lubricant (Artificial Tears Oph) 2 drop QID BOTH EYES Last administered on 09/21/18 08:39; Admin Dose 2 DROP; Start 09/20/18 at 20:00 Allergies: Coded Allergies: hydralazine (Verified Allergy, Unknown, 08/15/18) simvastatin (Verified Allergy, Unknown, 08/15/18) Past Surgical History Past Surgical Hx: other (Lung Biopsy for LLL mass, Permacath HD catheter, CABG ) Social History Alcohol Use: none Smoking Status: Never smoker Drug Use: none Exam/Review of Systems Exam Vitals Vital Signs Date Temp Pulse Resp B/P (MAP) Pulse Ox O2 O2 Flow FiO2 Time Delivery Rate 09/21/18 60 14 152/72 98 Room Air 07:15 (98) 09/21/18 98.5 04:00 09/19/18 21 06:53 Intake and Output 09/20/18 09/20/18 09/21/18 1515:00 23:00 07:00 IntakeIntake Total 178 ml 170 ml 21 ml OutputOutput Total 3100 ml BalanceBalance 178 ml 170 ml -3079 ml Exam H EENT exam; supple neck, no JVD. No lymphadenopathy. Midline trachea. No thyromegaly. Patient has left corneal opacity. Has fair dentition. No neck masses. Chest exam; diminished but clear breath sounds. S1-S2 audible, no murmurs. Regular rhythm. There is a well-healed sternal scar. Abdomen exam; soft, no organomegaly. Nontender. Bowel sounds audible. Extremity exam; no peripheral edema clubbing. 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 Results Result Diagram: 09/20/18 0502 09/21/18 0446 Results 24hrs Laboratory Tests Test 09/20/18 17:04 09/20/18 21:23 09/21/18 04:46 09/21/18 08:29 Bedside Glucose 95 129 97 Sodium Level 138 Potassium Level 4.8 Chloride Level 96 L Carbon Dioxide Level 30 Anion Gap 12 Blood Urea Nitrogen 31 #H Creatinine 6.28 #H Est Glomerular Filtrat 9 L Rate mL/min Glucose Level 103 Calcium Level 8.3 L Total Bilirubin 0.2 Direct Bilirubin 0.00 Indirect Bilirubin 0.2 Aspartate Amino 31 Transf (AST/SGOT) Alanine 31 Aminotransferase (ALT/SG PT) Alkaline Phosphatase 65 Total Protein 7.7 Albumin 4.4 Globulin 3.30 H Albumin/Globulin Ratio 1.33 Medications Medication Current Medications Dextrose (D50w Syringe) ONCE PRN IV DECREASED GLUCOSE Last administered on at 06:40; Admin Dose 50 ML; Start 09/19/18 at 06:30 Heparin Sodium (Porcine) (Heparin (1000 Units/ml)) 4,000 unit AFTER DIALYSIS CATHETER Last administered on 09/21/18at 02:25; Admin Dose 3,800 UNIT; Start 09/19/18 at 07:30 Mannitol 50 ml @ 50 mls/5 min WITH DIALYSIS PRN IV DISEQUILIBRIUM SYNDROME PPX; Start 09/19/18 at 07:30 Albumin Human 100 ml @ 100 mls/hr WITH DIALYSIS PRN IV SBP <90 DURING DIALYSIS; Start 09/19/18 at 07:30 Sodium Chloride (NS) -To prime the dialy... DIRECTED FOR HD PRN IV HD; Start 09/19/18 at 07:30 Acetaminophen (Tylenol Tab) 650 mg Q6 PRN PO .MILD PAIN 1-3 OR TEMP; Start 09/19/18 at 10:30 Ondansetron HCl (Zofran Inj) 4 mg Q4 PRN IV NAUSEA/VOMITING; Start 09/19/18 at 10:30 Diagnostic Test (Pha) (Accu-Chek) 1 ea 02 XX Last administered on 09/21/18at 02:17; Admin Dose 1 EA; Start 09/20/18 at 02:00 Insulin Aspart (Novolog Insulin Pen) NOVOLOG *MILD* ALGORITHM WITH MEALS BEDTIME SC ; Start 09/19/18 at 11:30 Miscellaneous Information 1 ea NOTE XX ; Start 09/19/18 at 11:00 Glucose (Glutose) 15 gm Q15M PRN PO DECREASED GLUCOSE; Start 09/19/18 at 11:00 Glucose (Glutose) 22.5 gm Q15M PRN PO DECREASED GLUCOSE; Start 09/19/18 at 11:00 Dextrose (D50w Syringe) 25 ml Q15M PRN IV DECREASED GLUCOSE; Start 09/19/18 at 11:00 Dextrose (D50w Syringe) 50 ml Q15M PRN IV DECREASED GLUCOSE; Start 09/19/18 at 11:00 Glucagon (Glucagen) 1 mg Q15M PRN IM DECREASED GLUCOSE; Start 09/19/18 at 11:00 Glucose (Glutose) 15 gm Q15M PRN BUCCAL DECREASED GLUCOSE; Start 09/19/18 at 11:00 Famotidine (Pepcid) 20 mg DAILY PO Last administered on 09/21/18at 08:37; Admin Dose 20 MG; Start 09/19/18 at 13:00 Nifedipine (Procardia Xl) 60 mg BID PO Last administered on 09/21/18at 08:37; Admin Dose 60 MG; Start 09/19/18 at 12:30 Sevelamer Carbonate (Renvela) 0.8 gm WITH MEALS PO Last administered on 09/21/18at 08:37; Admin Dose 0.8 GM; Start 09/19/18 at 17:35 Tamsulosin HCl (Flomax) 0.4 mg DAILY PO Last administered on 09/21/18at 08:38; Admin Dose 0.4 MG; Start 09/19/18 at 12:30 Miscellaneous Information 15 ml BID OP ; Start 09/19/18 at 12:30; Status UNV Minoxidil (Loniten) 5 mg BID PO Last administered on 09/21/18 08:38; Admin Dose 5 MG; Start 09/19/18 at 13:30 Clonidine (Catapres) 0.2 mg Q6 PRN PO ELEVATED BLOOD PRESSURE Last administered on 09/20/18 14:57; Admin Dose 0.2 MG; Start 09/19/18 at 15:30 Nitroglycerin/ Dextrose 250 ml @ 1.5 mls/hr TITRATE IV Last administered on 09/21/18 09:00; Admin Dose 1.5 MLS/HR; Start 09/19/18 at 15:30 Metoclopramide HCl (Reglan) 5 mg Q6 IV Last administered on 09/21/18 06:02; Admin Dose 5 MG; Start 09/20/18 at 00:00 Eye Lubricant (Artificial Tears Oph) 2 drop QID BOTH EYES Last administered on 09/21/18 08:39; Admin Dose 2 DROP; Start 09/20/18 at 20:00 JANES DOMINGO Sep 21, 2018 09:11
--- NOTE | 2018-09-21 15:46 | PN ---
Date/Time of Note Date/Time of Note DATE: 09/21/18 TIME: 15:40 Assessment/Plan VTE Prophylaxis Risk score (from Nsg)>0 risk: 7 SCD applied (from Nsg): Yes Pharmacological prophylaxis: heparin Lines/Catheters IV Catheter Type (from Nrsg): HD catheter Urinary Cath still in place: No Assessment/Plan Hospital Course Hypertension with systolic blood pressure being 200, patient was started on nitroglycerin drip, currently undergoing hemodialysis, denies any chest pain. Assessment/Plan - Hyperkalemia, resolved s/p emergent hemodialysis, Dr. Ortez is following in nephrology consultation. - Abdominal pain, abdominal ultrasound notable for distended gallbladder with m arked wall thickening. Dr. Winkler is following in GI consultation. - Possible cholecystitis, continue Zosyn - LLL mass decreased with pleural consolidation increased in volume per recent CT. Dr Mueller is following in pulmonology consultation. - HTN - DM - CAD, Hx of CABG - ESRD on HD - Legal blindness. No acute issue. - MRSA of nares colonization Further recommendations based on clinical course. Plan of care discussed with Dr. Reagan. Result Diagram: 09/20/18 0502 09/21/18 0446 Results 24hrs Laboratory Tests Test 09/20/18 17:04 09/20/18 21:23 09/21/18 04:46 09/21/18 08:29 Bedside Glucose 95 129 97 Sodium Level 138 Potassium Level 4.8 Chloride Level 96 L Carbon Dioxide Level 30 Anion Gap 12 Blood Urea Nitrogen 31 #H Creatinine 6.28 #H Est Glomerular Filtrat 9 L Rate mL/min Glucose Level 103 Calcium Level 8.3 L Total Bilirubin 0.2 Direct Bilirubin 0.00 Indirect Bilirubin 0.2 Aspartate Amino 31 Transf (AST/SGOT) Alanine 31 Aminotransferase (ALT/SG PT) Alkaline Phosphatase 65 Total Protein 7.7 Albumin 4.4 Globulin 3.30 H Albumin/Globulin Ratio 1.33 Exam/Review of Systems Exam Vitals Vital Signs Date Temp Pulse Resp B/P (MAP) Pulse Ox O2 O2 Flow FiO2 Time Delivery Rate 09/21/18 70 14:40 09/21/18 15 175/81 98 12:45 (112) 09/21/18 Room Air 12:42 09/21/18 97.8 12:00 09/19/18 21 06:53 Intake and Output 09/20/18 09/20/18 09/21/18 1515:00 23:00 07:00 IntakeIntake Total 178 ml 170 ml 27 ml OutputOutput Total 3100 ml BalanceBalance 178 ml 170 ml -3073 ml Exam Constitutional: alert, oriented Head: normocephalic ENMT: nl external ears & nose Neck: supple Respiratory: clear to auscultation Cardiovascular: regular rate and rhythm Gastrointestinal: soft, non-tender Musculoskeletal: nl extremities to inspection Extremities: normal pulses 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: nl mental status Skin: nl turgor Results Results 24hrs Laboratory Tests Test 09/20/18 17:04 09/20/18 21:23 09/21/18 04:46 09/21/18 08:29 Bedside Glucose 95 129 97 Sodium Level 138 Potassium Level 4.8 Chloride Level 96 L Carbon Dioxide Level 30 Anion Gap 12 Blood Urea Nitrogen 31 #H Creatinine 6.28 #H Est Glomerular Filtrat 9 L Rate mL/min Glucose Level 103 Calcium Level 8.3 L Total Bilirubin 0.2 Direct Bilirubin 0.00 Indirect Bilirubin 0.2 Aspartate Amino 31 Transf (AST/SGOT) Alanine 31 Aminotransferase (ALT/SG PT) Alkaline Phosphatase 65 Total Protein 7.7 Albumin 4.4 Globulin 3.30 H Albumin/Globulin Ratio 1.33 Medications Medication Current Medications Heparin Sodium (Porcine) (Heparin (1000 Units/ml)) 4,000 unit AFTER DIALYSIS CATHETER Last administered on 09/21/18at 14:53; Admin Dose 4,000 UNIT; Start 09/19/18 at 07:30 Mannitol 50 ml @ 50 mls/5 min WITH DIALYSIS PRN IV DISEQUILIBRIUM SYNDROME PPX; Start 09/19/18 at 07:30 Albumin Human 100 ml @ 100 mls/hr WITH DIALYSIS PRN IV SBP <90 DURING DIALYSIS; Start 09/19/18 at 07:30 Sodium Chloride (NS) -To prime the dialy... DIRECTED FOR HD PRN IV HD; Start 09/19/18 at 07:30 Acetaminophen (Tylenol Tab) 650 mg Q6 PRN PO .MILD PAIN 1-3 OR TEMP; Start 09/19/18 at 10:30 Ondansetron HCl (Zofran Inj) 4 mg Q4 PRN IV NAUSEA/VOMITING; Start 09/19/18 at 10:30 Diagnostic Test (Pha) (Accu-Chek) XX Last administered on 09/21/18at 02:17; Admin Dose 1 EA; Start 09/20/18 at 02:00 Insulin Aspart (Novolog Insulin Pen) NOVOLOG *MILD* ALGORITHM WITH MEALS BEDTIME SC ; Start 09/19/18 at 11:30 Miscellaneous Information 1 ea NOTE XX ; Start 09/19/18 at 11:00 Glucose (Glutose) 15 gm Q15M PRN PO DECREASED GLUCOSE; Start 09/19/18 at 11:00 Glucose (Glutose) 22.5 gm Q15M PRN PO DECREASED GLUCOSE; Start 09/19/18 at 11:00 Dextrose (D50w Syringe) 25 ml Q15M PRN IV DECREASED GLUCOSE; Start 09/19/18 at 11:00 Dextrose (D50w Syringe) 50 ml Q15M PRN IV DECREASED GLUCOSE; Start 09/19/18 at 11:00 Glucagon (Glucagen) 1 mg Q15M PRN IM DECREASED GLUCOSE; Start 09/19/18 at 11:00 Glucose (Glutose) 15 gm Q15M PRN BUCCAL DECREASED GLUCOSE; Start 09/19/18 at 11:00 Famotidine (Pepcid) 20 mg DAILY PO Last administered on 09/21/18at 08:37; Admin Dose 20 MG; Start 09/19/18 at 13:00 Nifedipine (Procardia Xl) 60 mg BID PO Last administered on 09/21/18at 08:37; Admin Dose 60 MG; Start 09/19/18 at 12:30 Sevelamer Carbonate (Renvela) 0.8 gm WITH MEALS PO Last administered on 09/21/18at 08:37; Admin Dose 0.8 GM; Start 09/19/18 at 17:35 Tamsulosin HCl (Flomax) 0.4 mg DAILY PO Last administered on 09/21/18at 08:38; Admin Dose 0.4 MG; Start 09/19/18 at 12:30 Miscellaneous Information 15 ml BID OP ; Start 09/19/18 at 12:30; Status UNV Minoxidil (Loniten) 5 mg BID PO Last administered on 09/21/18at 08:38; Admin Dose 5 MG; Start 09/19/18 at 13:30 Clonidine (Catapres) 0.2 mg Q6 PRN PO ELEVATED BLOOD PRESSURE Last administered on 09/20/18at 14:57; Admin Dose 0.2 MG; Start 09/19/18 at 15:30 Nitroglycerin/ Dextrose 250 ml @ 1.5 mls/hr TITRATE IV Last administered on 09/21/18 09:00; Admin Dose 1.5 MLS/HR; Start 09/19/18 at 15:30 Metoclopramide HCl (Reglan) 5 mg Q6 IV Last administered on 09/21/18 06:02; Admin Dose 5 MG; Start 09/20/18 at 00:00 Eye Lubricant (Artificial Tears Oph) 2 drop QID BOTH EYES Last administered on 09/21/18 08:39; Admin Dose 2 DROP; Start 09/20/18 at 20:00 MARGARITO DAMICO Sep 21, 2018 15:46
[2018-09-21] MEDS: PIPER-TAZO 2.25 GM (PMX) 50 ML IVPB SCH ×2 (17:14→21:48)
--- NOTE | 2018-09-21 20:05 | CONS ---
Assessment/Plan Assessment/Plan Assessment/Plan (Daily) Interval hx: BM yesterday soft. Denies nausea. C/O mild RUQ pain with positive Hartman's. LFTs wnl. Hgb stable. CBD measures 3.5mm wnl. 1. Abdominal pain with nausea and vomiting -resolved -gastritis v PUD v cholecystitis 2. Mild acute cholecystitis 3. RT lower lobe mass. 4. Hypertension. 5. Diabetes mellitus. 6. Coronary artery disease status post coronary artery bypass graft. 7. Legally blind. 8. 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 9. Hyperkalemia, for which he had emergent dialysis and was also medically treated. US of upper abd 09/19: 1. Diffuse gallbladder wall thickening and trace pericholecystic fluid, appearance may indicate acute cholecystitis, reactive inflammation or edema. 2. No gallstones identified. 3. Mildly atrophic right kidney, echogenic appearance consistent with chronic medical renal disease. PLAN: Pending HIDA negative for cholecystitis. Continue with PPI and Reglan Pain management Consultation Date/Type/Reason Admit Date/Time Sep 19, 2018 at 06:33 Initial Consult Date 09/21/18 Requesting Provider: JULES BARRAZA MD Date/Time of Note DATE: 09/21/18 TIME: 20:04 24 HR Interval Summary Free Text/Dictation Denies of abdominal pain No nausea no vomiting Constitutional: no complaints, improved Exam/Review of Systems Exam Vitals Vital Signs Date Temp Pulse Resp B/P (MAP) Pulse Ox O2 O2 Flow FiO2 Time Delivery Rate 09/21/18 67 20 158/68 98 19:00 (98) 09/21/18 98.0 Room Air 16:00 09/19/18 21 06:53 Intake and Output 09/20/18 09/20/18 09/21/18 1515:00 23:00 07:00 IntakeIntake Total 178 ml 170 ml 27 ml OutputOutput Total 3100 ml BalanceBalance 178 ml 170 ml -3073 ml Constitutional: alert, oriented, well developed Psych: no complaints, nl mood/affect Head: normocephalic, atraumatic Eyes: nl conjunctiva, EOMI, nl lids, nl sclera, PERRL ENMT: nl external ears & nose, nl lips & teeth, nl nasal mucosa & septum Neck: supple, non-tender Respiratory: clear to auscultation, normal air movement Cardiovascular: regular rate and rhythm, nl pulses Gastrointestinal: soft, nl liver, spleen, non-tender Musculoskeletal: nl extremities to inspection, nl gait and stance Extremities: normal pulses 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: VET[employer]IN[employer]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-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 intact, nl mental status, nl speech, nl strength Skin: nl turgor; No rash or lesions Lymph: nl lymph nodes Results Result Diagram: 09/20/18 0502 09/21/18 0446 Results 24hrs Laboratory Tests Test 09/20/18 21:23 09/21/18 04:46 09/21/18 08:29 Bedside Glucose 129 97 Sodium Level 138 Potassium Level 4.8 Chloride Level 96 L Carbon Dioxide Level 30 Anion Gap 12 Blood Urea Nitrogen 31 #H Creatinine 6.28 #H Est Glomerular Filtrat Rate mL/min 9 L Glucose Level 103 Calcium Level 8.3 L Total Bilirubin 0.2 Direct Bilirubin 0.00 Indirect Bilirubin 0.2 Aspartate Amino Transf (AST/SGOT) 31 Alanine Aminotransferase (ALT/SGPT) 31 Alkaline Phosphatase 65 Total Protein 7.7 Albumin 4.4 Globulin 3.30 H Albumin/Globulin Ratio 1.33 Medications Medication Current Medications Heparin Sodium (Porcine) (Heparin (1000 Units/ml)) 4,000 unit AFTER DIALYSIS CATHETER Last administered on 09/21/18at 14:53; Admin Dose 4,000 UNIT; Start 09/19/18 at 07:30 Mannitol 50 ml @ 50 mls/5 min WITH DIALYSIS PRN IV DISEQUILIBRIUM SYNDROME PPX; Start 09/19/18 at 07:30 Albumin Human 100 ml @ 100 mls/hr WITH DIALYSIS PRN IV SBP <90 DURING DIALYSIS; Start 09/19/18 at 07:30 Sodium Chloride (NS) -To prime the dialy... DIRECTED FOR HD PRN IV HD; Start 09/19/18 at 07:30 Acetaminophen (Tylenol Tab) 650 mg Q6 PRN PO .MILD PAIN 1-3 OR TEMP; Start 09/19/18 at 10:30 Ondansetron HCl (Zofran Inj) 4 mg Q4 PRN IV NAUSEA/VOMITING; Start 09/19/18 at 10:30 Diagnostic Test (Pha) (Accu-Chek) 1 ea 02 XX Last administered on 09/21/18at 02:17; Admin Dose 1 EA; Start 09/20/18 at 02:00 Insulin Aspart (Novolog Insulin Pen) NOVOLOG *MILD* ALGORITHM WITH MEALS BEDTIME SC ; Start 09/19/18 at 11:30 Miscellaneous Information 1 ea NOTE XX ; Start 09/19/18 at 11:00 Glucose (Glutose) 15 gm Q15M PRN PO DECREASED GLUCOSE; Start 09/19/18 at 11:00 Glucose (Glutose) 22.5 gm Q15M PRN PO DECREASED GLUCOSE; Start 09/19/18 at 11:00 Dextrose (D50w Syringe) 25 ml Q15M PRN IV DECREASED GLUCOSE; Start 09/19/18 at 11:00 Dextrose (D50w Syringe) 50 ml Q15M PRN IV DECREASED GLUCOSE; Start 09/19/18 at 11:00 Glucagon (Glucagen) 1 mg Q15M PRN IM DECREASED GLUCOSE; Start 09/19/18 at 11:00 Glucose (Glutose) 15 gm Q15M PRN BUCCAL DECREASED GLUCOSE; Start 09/19/18 at 11:00 Famotidine (Pepcid) 20 mg DAILY PO Last administered on 09/21/18at 08:37; Admin Dose 20 MG; Start 09/19/18 at 13:00 Nifedipine (Procardia Xl) 60 mg BID PO Last administered on 09/21/18at 08:37; Admin Dose 60 MG; Start 09/19/18 at 12:30 Sevelamer Carbonate (Renvela) 0.8 gm WITH MEALS PO Last administered on 09/21/18at 17:04; Admin Dose 0.8 GM; Start 09/19/18 at 17:35 Tamsulosin HCl (Flomax) 0.4 mg DAILY PO Last administered on 09/21/18at 08:38; Admin Dose 0.4 MG; Start 09/19/18 at 12:30 Miscellaneous Information 15 ml BID OP ; Start 09/19/18 at 12:30; Status UNV Minoxidil (Loniten) 5 mg BID PO Last administered on 09/21/18 08:38; Admin Dose 5 MG; Start 09/19/18 at 13:30 Clonidine (Catapres) 0.2 mg Q6 PRN PO ELEVATED BLOOD PRESSURE Last administered on 09/20/18at 14:57; Admin Dose 0.2 MG; Start 09/19/18 at 15:30 Nitroglycerin/ Dextrose 250 ml @ 1.5 mls/hr TITRATE IV Last administered on 09/21/18 09:00; Admin Dose 1.5 MLS/HR; Start 09/19/18 at 15:30 Metoclopramide HCl (Reglan) 5 mg Q6 IV Last administered on 09/21/18 17:04; Admin Dose 5 MG; Start 09/20/18 at 00:00 Eye Lubricant (Artificial Tears Oph) 2 drop QID BOTH EYES Last administered on 09/21/18 17:04; Admin Dose 2 DROP; Start 09/20/18 at 20:00 Piperacillin Sod/ Tazobactam Sod 50 ml @ 100 mls/hr Q8 IVPB Last administered on 09/21/18 17:14; Admin Dose 100 MLS/HR; Start 09/21/18 at 18:00 MIGUELINA HALL MD Sep 21, 2018 20:05
[2018-09-22] VITALS (69 sets, daily range): BP systolic 115–200; BP diastolic 57–149; PULSE 62–80; RESP 11–27
[2018-09-22] MEDS: METOCLOPRAMIDE 10 MG INJ IV SCH ×5 (00:22→23:33)
[2018-09-22] MEDS: ACCU-CHEK XX SCH (02:00)
[2018-09-22] MEDS: PIPER-TAZO 2.25 GM (PMX) 50 ML IVPB SCH ×3 (05:38→21:13)
[2018-09-22] MEDS: SEVELAMER CARBONATE 0.8 GM PKT PO SCH ×3 (07:31→17:18)
[2018-09-22] MEDS: INSULIN ASPART [NOVOLOG] 3 ML PEN SC SCH ×4 (07:31→21:00)
[2018-09-22] MEDS: MINOXIDIL 2.5 MG TAB PO SCH ×2 (08:11→21:10)
[2018-09-22] MEDS: FAMOTIDINE 20 MG TAB PO SCH (08:11)
[2018-09-22] MEDS: TAMSULOSIN (SR) 0.4 MG CAP PO SCH (08:11)
[2018-09-22] MEDS: NIFEdipine (XL) 60 MG TAB PO SCH ×2 (08:12→21:11)
[2018-09-22] MEDS: ARTIFICIAL TEARS 15 ML OPH BOTH EYES SCH ×4 (08:14→21:12)
--- NOTE | 2018-09-22 09:13 | CONS ---
Assessment/Plan Assessment/Plan Assessment/Plan (Daily) Patient is currently on nitroglycerin drip at 20 mics per minute. Assessment recommendations; 1. Patient admitted with mild shortness of breath due to mild CHF with severe hyperkalemia, status post emergent hemodialysis with a history of chronic renal failure on outpatient hemodialysis. 2. Anemia and severe thrombocytopenia. 3. Hypertension. 4. BPH. 5. Questionable cholecystitis, however abdomen exam is benign and HIDA scan is negative. Patient maintained on Zosyn empirically. Continue current supportive care. Wean down nitroglycerin drip as tolerated. 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 Consultation Date/Type/Reason Admit Date/Time Sep 19, 2018 at 06:33 Initial Consult Date 09/21/18 Type of Consult Pulmonary Pulmonary consult requested for evaluation of shortness of breath. Patient is a pleasant 57-year-old male who came into the emergency room with complaints of nausea vomiting and mild shortness of breath. Upon further evaluation patient was diagnosed with severe hyperkalemia, also ultrasound abdomen was done which was indicative of possibly acute cholecystitis. However HIDA scan is negative and the patient also denies any further abdominal pain, nausea vomiting. Patient was emergently hemodialyzed yesterday because of hypertension, was transferred to ICU and currently maintained on nitroglycerin drip. Patient denies any shortness of breath, any chest pain, fever, cough, sputum production. Past medical history; 1. Hypertension. 2. End-stage renal disease, hemodialysis. 3. Chronic anemia. 4. Diabetes. 5. BPH. 6. Recent admission for left lower lobe pneumonia, status post biopsy which revealed organizing pneumonia. 7. Left corneal opacity. 8. Prior CABG. Medications; reviewed. Allergies; as outlined above. Social history; noncontributory. Family history; patient is single, has 2 children. Occupational history; patient is on disability. Review of systems; denies any headache, visual changes, complains of left eye blindness. Denies any further shortness of breath. Any coughing, wheezing, sputum production. Denies any abdominal pain, nausea vomiting. Any melena or hematochezia. Any edema orthopnea. Any weight change. General exam; middle-aged male, awake and alert. Currently no distress. Requesting Provider: JULES BARRAZA MD Date/Time of Note DATE: 09/22/18 TIME: 09:10 24 HR Interval Summary Free Text/Dictation Patient's condition is still unstable patient requiring nitroglycerin drip for severe hypertension. Patient however clinically is asymptomatic. General exam; middle-aged male, awake alert, currently in no distress. Exam/Review of Systems Exam Vitals Vital Signs Date Temp Pulse Resp B/P (MAP) Pulse Ox O2 O2 Flow FiO2 Time Delivery Rate 09/22/18 12 183/76 98 05:51 (111) 09/22/18 66 05:30 09/22/18 Room Air 04:30 09/22/18 98.8 04:00 09/19/18 21 06:53 Intake and Output 09/21/18 09/21/18 09/22/18 1515:00 23:00 07:00 IntakeIntake Total 95 ml 370 ml 100 ml OutputOutput Total 200 ml 2925 ml 0 ml BalanceBalance -105 ml -2555 ml 100 ml Exam H EENT exam; supple neck, positive JVD. No lymphadenopathy. Midline trachea. No thyromegaly. Patient has carious teeth. There is a left corneal opacity. Chest exam; diminished but clear breath sounds. S1-S2 audible, no murmurs. Regular rhythm. Abdomen exam; soft, no organomegaly. Bowel sounds audible. Extremity exam; peripheral edema clubbing. PUBLIC SPEAKER exam; no focal deficit. Results Result Diagram: 09/20/18 0502 09/21/18 0446 Results 24hrs Laboratory Tests Test 09/21/18 20:50 09/22/18 01:59 09/22/18 07:31 Bedside Glucose 116 132 87 Medications Medication Current Medications Heparin Sodium (Porcine) (Heparin (1000 Units/ml)) 4,000 unit AFTER DIALYSIS CATHETER Last administered on 09/21/18at 14:53; Admin Dose 4,000 UNIT; Start 09/19/18 at 07:30 Mannitol 50 ml @ 50 mls/5 min WITH DIALYSIS PRN IV DISEQUILIBRIUM SYNDROME PPX; Start 09/19/18 at 07:30 Albumin Human 100 ml @ 100 mls/hr WITH DIALYSIS PRN IV SBP <90 DURING DIAL YSIS; Start 09/19/18 at 07:30 Sodium Chloride (NS) -To prime the dialy... DIRECTED FOR HD PRN IV HD; Start 09/19/18 at 07:30 Acetaminophen (Tylenol Tab) 650 mg Q6 PRN PO .MILD PAIN 1-3 OR TEMP; Start 09/19/18 at 10:30 Ondansetron HCl (Zofran Inj) 4 mg Q4 PRN IV NAUSEA/VOMITING; Start 09/19/18 at 10:30 Diagnostic Test (Pha) (Accu-Chek) 1 ea 02 XX Last administered on 09/22/18at 02:00; Admin Dose 1 EA; Start 09/20/18 at 02:00 Insulin Aspart (Novolog Insulin Pen) NOVOLOG *MILD* ALGORITHM WITH MEALS BEDTIME SC ; Start 09/19/18 at 11:30 Miscellaneous Information 1 ea NOTE XX ; Start 09/19/18 at 11:00 Glucose (Glutose) 15 gm Q15M PRN PO DECREASED GLUCOSE; Start 09/19/18 at 11:00 Glucose (Glutose) 22.5 gm Q15M PRN PO DECREASED GLUCOSE; Start 09/19/18 at 11:00 Dextrose (D50w Syringe) 25 ml Q15M PRN IV DECREASED GLUCOSE; Start 09/19/18 at 11:00 Dextrose (D50w Syringe) 50 ml Q15M PRN IV DECREASED GLUCOSE; Start 09/19/18 at 11:00 Glucagon (Glucagen) 1 mg Q15M PRN IM DECREASED GLUCOSE; Start 09/19/18 at 11:00 Glucose (Glutose) 15 gm Q15M PRN BUCCAL DECREASED GLUCOSE; Start 09/19/18 at 11:00 Famotidine (Pepcid) 20 mg DAILY PO Last administered on 09/22/18at 08:11; Admin Dose 20 MG; Start 09/19/18 at 13:00 Nifedipine (Procardia Xl) 60 mg BID PO Last administered on 09/22/18at 08:12; Admin Dose 60 MG; Start 09/19/18 at 12:30 Sevelamer Carbonate (Renvela) 0.8 gm WITH MEALS PO Last administered on 09/22/18at 07:31; Admin Dose 0.8 GM; Start 09/19/18 at 17:35 Tamsulosin HCl (Flomax) 0.4 mg DAILY PO Last administered on 09/22/18at 08:11; Admin Dose 0.4 MG; Start 09/19/18 at 12:30 Miscellaneous Information 15 ml BID OP ; Start 09/19/18 at 12:30; Status UNV Minoxidil (Loniten) 5 mg BID PO Last administered on 09/22/18 08:11; Admin Dose 5 MG; Start 09/19/18 at 13:30 Clonidine (Catapres) 0.2 mg Q6 PRN PO ELEVATED BLOOD PRESSURE Last administered on 09/20/18 14:57; Admin Dose 0.2 MG; Start 09/19/18 at 15:30 Nitroglycerin/ Dextrose 250 ml @ 1.5 mls/hr TITRATE IV Last administered on 09/21/18 09:00; Admin Dose 1.5 MLS/HR; Start 09/19/18 at 15:30 Metoclopramide HCl (Reglan) 5 mg Q6 IV Last administered on 09/22/18 05:38; Admin Dose 5 MG; Start 09/20/18 at 00:00 Eye Lubricant (Artificial Tears Oph) 2 drop QID BOTH EYES Last administered on 09/22/18 08:14; Admin Dose 2 DROP; Start 09/20/18 at 20:00 Piperacillin Sod/ Tazobactam Sod 50 ml @ 100 mls/hr Q8 IVPB Last administered on 09/22/18 05:38; Admin Dose 100 MLS/HR; Start 09/21/18 at 18:00 JANES DOMINGO Sep 22, 2018 09:13
--- NOTE | 2018-09-22 12:16 | CONS ---
Assessment/Plan Assessment/Plan Assessment/Plan (Daily) Assessment/Plan (Daily) Interval hx: BM yesterday soft. Denies nausea. C/O mild RUQ pain with pos itive Hartman's. LFTs wnl. Hgb stable. CBD measures 3.5mm wnl. 1. Abdominal pain with nausea and vomiting -resolved -gastritis v PUD v cholecystitis 2. Mild acute cholecystitis, resolved 3. RT lower lobe mass. Probably from pneumonia 4. Hypertension. Patient is on nitrite drip 5. Diabetes mellitus. 6. Coronary artery disease status post coronary artery bypass graft. 7. Legally blind. 8. 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 9. Hyperkalemia, for which he had emergent dialysis and was also medically treated. US of upper abd 09/19: 1. Diffuse gallbladder wall thickening and trace pericholecystic fluid, appearance may indicate acute cholecystitis, reactive inflammation or edema. 2. No gallstones identified. 3. Mildly atrophic right kidney, echogenic appearance consistent with chronic medical renal disease. PLAN: HIDA negative for cholecystitis. Continue with PPI and Reglan Pain management Consultation Date/Type/Reason Admit Date/Time Sep 19, 2018 at 06:33 Initial Consult Date 09/21/18 Requesting Provider: JULES BARRAZA MD Date/Time of Note DATE: 09/22/18 TIME: 12:15 24 HR Interval Summary Constitutional: no complaints, improved Exam/Review of Systems Exam Vitals Vital Signs Date Temp Pulse Resp B/P (MAP) Pulse Ox O2 O2 Flow FiO2 Time Delivery Rate 09/22/18 67 15 152/69 96 11:30 (96) 09/22/18 Room Air 11:15 09/22/18 98.6 08:00 09/19/18 21 06:53 Intake and Output 09/21/18 09/21/18 09/22/18 1515:00 23:00 07:00 IntakeIntake Total 95 ml 370 ml 300 ml OutputOutput Total 200 ml 2925 ml 0 ml BalanceBalance -105 ml -2555 ml 300 ml Constitutional: alert, oriented, well developed Psych: no complaints, nl mood/affect Head: normocephalic, atraumatic Eyes: nl conjunctiva, EOMI, nl lids, nl sclera, PERRL ENMT: nl external ears & nose, nl lips & teeth, nl nasal mucosa & septum Neck: supple, non-tender Respiratory: clear to auscultation, normal air movement Cardiovascular: regular rate and rhythm, nl pulses Gastrointestinal: soft, nl liver, spleen, non-tender Musculoskeletal: nl extremities to inspection, nl gait and stance Extremities: normal pulses 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: ROVING CAN TENDER II-XII intact, nl mental status, nl speech, nl strength Skin: nl turgor; No rash or lesions Lymph: nl lymph nodes Results Result Diagram: 09/20/18 0502 09/21/18 0446 Results 24hrs Laboratory Tests Test 09/21/18 20:50 09/22/18 01:59 09/22/18 07:31 09/22/18 11:12 Bedside Glucose 116 132 87 139 Medications Medication Current Medications Heparin Sodium (Porcine) (Heparin (1000 Units/ml)) 4,000 unit AFTER DIALYSIS CATHETER Last administered on 09/21/18at 14:53; Admin Dose 4,000 UNIT; Start 09/19/18 at 07:30 Mannitol 50 ml @ 50 mls/5 min WITH DIALYSIS PRN IV DISEQUILIBRIUM SYNDROME PPX; Start 09/19/18 at 07:30 Albumin Human 100 ml @ 100 mls/hr WITH DIALYSIS PRN IV SBP <90 DURING DIALYSIS; Start 09/19/18 at 07:30 Sodium Chloride (NS) -To prime the dialy... DIRECTED FOR HD PRN IV HD; Start 09/19/18 at 07:30 Acetaminophen (Tylenol Tab) 650 mg Q6 PRN PO .MILD PAIN 1-3 OR TEMP; Start 09/19/18 at 10:30 Ondansetron HCl (Zofran Inj) 4 mg Q4 PRN IV NAUSEA/VOMITING; Start 09/19/18 at 10:30 Diagnostic Test (Pha) (Accu-Chek) 1 ea 02 XX Last administered on 09/22/18at 02:00; Admin Dose 1 EA; Start 09/20/18 at 02:00 Insulin Aspart (Novolog Insulin Pen) NOVOLOG *MILD* ALGORITHM WITH MEALS BEDTIME SC ; Start 09/19/18 at 11:30 Miscellaneous Information 1 ea NOTE XX ; Start 09/19/18 at 11:00 Glucose (Glutose) 15 gm Q15M PRN PO DECREASED GLUCOSE; Start 09/19/18 at 11:00 Glucose (Glutose) 22.5 gm Q15M PRN PO DECREASED GLUCOSE; Start 09/19/18 at 11:00 Dextrose (D50w Syringe) 25 ml Q15M PRN IV DECREASED GLUCOSE; Start 09/19/18 at 11:00 Dextrose (D50w Syringe) 50 ml Q15M PRN IV DECREASED GLUCOSE; Start 09/19/18 at 11:00 Glucagon (Glucagen) 1 mg Q15M PRN IM DECREASED GLUCOSE; Start 09/19/18 at 11:00 Glucose (Glutose) 15 gm Q15M PRN BUCCAL DECREASED GLUCOSE; Start 09/19/18 at 11:00 Famotidine (Pepcid) 20 mg DAILY PO Last administered on 09/22/18 08:11; Admin Dose 20 MG; Start 09/19/18 at 13:00 Nifedipine (Procardia Xl) 60 mg BID PO Last administered on 09/22/18 08:12; Admin Dose 60 MG; Start 09/19/18 at 12:30 Sevelamer Carbonate (Renvela) 0.8 gm WITH MEALS PO Last administered on 09/22/18 11:12; Admin Dose 0.8 GM; Start 09/19/18 at 17:35 Tamsulosin HCl (Flomax) 0.4 mg DAILY PO Last administered on 09/22/18 08:11; Admin Dose 0.4 MG; Start 09/19/18 at 12:30 Miscellaneous Information 15 ml BID XX ; Start 09/19/18 at 12:30; Status UNV Minoxidil (Loniten) 5 mg BID PO Last administered on 09/22/18 08:11; Admin Dose 5 MG; Start 09/19/18 at 13:30 Clonidine (Catapres) 0.2 mg Q6 PRN PO ELEVATED BLOOD PRESSURE Last administered on 09/20/18 14:57; Admin Dose 0.2 MG; Start 09/19/18 at 15:30 Nitroglycerin/ Dextrose 250 ml @ 1.5 mls/hr TITRATE IV Last administered on 09/21/18 09:00; Admin Dose 1.5 MLS/HR; Start 09/19/18 at 15:30 Metoclopramide HCl (Reglan) 5 mg Q6 IV Last administered on 09/22/18 11:12; Admin Dose 5 MG; Start 09/20/18 at 00:00 Eye Lubricant (Artificial Tears Oph) 2 drop QID BOTH EYES Last administered on 09/22/18at 08:14; Admin Dose 2 DROP; Start 09/20/18 at 20:00 Piperacillin Sod/ Tazobactam Sod 50 ml @ 100 mls/hr Q8 IVPB Last administered on 09/22/18at 05:38; Admin Dose 100 MLS/HR; Start 09/21/18 at 18:00 Nitroglycerin (Nitroglycerin 0.2 Mg/Hr) 1 patch DAILY TRANSDERM ; Start 09/22/18 at 11:30 MIGUELINA HALL MD Sep 22, 2018 12:16
[2018-09-22] MEDS: NITROGLYCERIN 0.2 MG/HR PATCH TRANSDERM SCH (13:24)
--- NOTE | 2018-09-22 13:25 | PN ---
Date/Time of Note Date/Time of Note DATE: 09/22/18 TIME: 13:19 Assessment/Plan VTE Prophylaxis Risk score (from Nsg)>0 risk: 3 SCD applied (from Nsg): Yes Pharmacological prophylaxis: heparin Lines/Catheters IV Catheter Type (from Nrsg): HD CATH Urinary Cath still in place: No Assessment/Plan Hospital Course Patient continues on nitroglycerin drip for hypertension, patient is awake al ert, able to tolerate diet without nausea. Assessment/Plan - Hypertensive emergency, continue nitroglycerin drip patient is currently on minoxidil Procardia and clonidine. - Hyperkalemia, resolved s/p emergent hemodialysis, Dr. Ortez is following in nephrology consultation. - Abdominal pain most likely secondary to gastritis versus PUD, abdominal ultrasound notable for distended gallbladder with marked wall thickening. Continue PPI and Reglan. Dr. Winkler is following in GI consultation. - Possible cholecystitis, continue Zosyn - LLL mass decreased with pleural consolidation increased in volume per recent CT. Dr Mueller is following in pulmonology consultation. - HTN - DM - CAD, Hx of CABG - ESRD on HD - Legal blindness. No acute issue. - MRSA of nares colonization Further recommendations based on clinical course. Plan of care discussed with Dr. Reagan. Result Diagram: 09/20/18 0502 09/21/18 0446 Results 24hrs Laboratory Tests Test 09/21/18 20:50 09/22/18 01:59 09/22/18 07:31 09/22/18 11:12 Bedside Glucose 116 132 87 139 Exam/Review of Systems Exam Vitals Vital Signs Date Temp Pulse Resp B/P (MAP) Pulse Ox O2 O2 Flow FiO2 Time Delivery Rate 09/22/18 70 14 182/86 96 13:00 (118) 09/22/18 Room Air 11:15 09/22/18 98.6 08:00 09/19/18 21 06:53 Intake and Output 09/21/18 09/21/18 09/22/18 1515:00 23:00 07:00 IntakeIntake Total 95 ml 370 ml 300 ml OutputOutput Total 200 ml 2925 ml 0 ml BalanceBalance -105 ml -2555 ml 300 ml Exam Constitutional: alert, oriented Head: normocephalic ENMT: nl external ears & nose, blind Respiratory: clear to auscultation Cardiovascular: regular rate and rhythm Gastrointestinal: soft, non-tender Musculoskeletal: nl extremities to inspection Extremities: normal pulses 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: nl mental status Results Results 24hrs Laboratory Tests Test 09/21/18 20:50 09/22/18 01:59 09/22/18 07:31 09/22/18 11:12 Bedside Glucose 116 132 87 139 Medications Medication Current Medications Heparin Sodium (Porcine) (Heparin (1000 Units/ml)) 4,000 unit AFTER DIALYSIS CATHETER Last administered on 09/21/18at 14:53; Admin Dose 4,000 UNIT; Start 09/19/18 at 07:30 Mannitol 50 ml @ 50 mls/5 min WITH DIALYSIS PRN IV DISEQUILIBRIUM SYNDROME PPX; Start 09/19/18 at 07:30 Albumin Human 100 ml @ 100 mls/hr WITH DIALYSIS PRN IV SBP <90 DURING DIALYSIS; Start 09/19/18 at 07:30 Sodium Chloride (NS) -To prime the dialy... DIRECTED FOR HD PRN IV HD; Start 09/19/18 at 07:30 Acetaminophen (Tylenol Tab) 650 mg Q6 PRN PO .MILD PAIN 1-3 OR TEMP; Start 09/19/18 at 10:30 Ondansetron HCl (Zofran Inj) 4 mg Q4 PRN IV NAUSEA/VOMITING; Start 09/19/18 at 10:30 Diagnostic Test (Pha) (Accu-Chek) 1 ea 02 XX Last administered on 09/22/18at 02:00; Admin Dose 1 EA; Start 09/20/18 at 02:00 Insulin Aspart (Novolog Insulin Pen) NOVOLOG *MILD* ALGORITHM WITH MEALS BEDTIME SC ; Start 09/19/18 at 11:30 Miscellaneous Information 1 ea NOTE XX ; Start 09/19/18 at 11:00 Glucose (Glutose) 15 gm Q15M PRN PO DECREASED GLUCOSE; Start 09/19/18 at 11:00 Glucose (Glutose) 22.5 gm Q15M PRN PO DECREASED GLUCOSE; Start 09/19/18 at 11:00 Dextrose (D50w Syringe) 25 ml Q15M PRN IV DECREASED GLUCOSE; Start 09/19/18 at 11:00 Dextrose (D50w Syringe) 50 ml Q15M PRN IV DECREASED GLUCOSE; Start 09/19/18 at 11:00 Glucagon (Glucagen) 1 mg Q15M PRN IM DECREASED GLUCOSE; Start 09/19/18 at 11:00 Glucose (Glutose) 15 gm Q15M PRN BUCCAL DECREASED GLUCOSE; Start 09/19/18 at 11:00 Famotidine (Pepcid) 20 mg DAILY PO Last administered on 09/22/18 08:11; Admin Dose 20 MG; Start 09/19/18 at 13:00 Nifedipine (Procardia Xl) 60 mg BID PO Last administered on 09/22/18 08:12; Admin Dose 60 MG; Start 09/19/18 at 12:30 Sevelamer Carbonate (Renvela) 0.8 gm WITH MEALS PO Last administered on 09/22/18 11:12; Admin Dose 0.8 GM; Start 09/19/18 at 17:35 Tamsulosin HCl (Flomax) 0.4 mg DAILY PO Last administered on 09/22/18 08:11; Admin Dose 0.4 MG; Start 09/19/18 at 12:30 Miscellaneous Information 15 ml BID XX ; Start 09/19/18 at 12:30; Status UNV Minoxidil (Loniten) 5 mg BID PO Last administered on 09/22/18 08:11; Admin Dose 5 MG; Start 09/19/18 at 13:30 Clonidine (Catapres) 0.2 mg Q6 PRN PO ELEVATED BLOOD PRESSURE Last administered on 09/20/18 14:57; Admin Dose 0.2 MG; Start 09/19/18 at 15:30 Nitroglycerin/ Dextrose 250 ml @ 1.5 mls/hr TITRATE IV Last administered on 09/21/18 09:00; Admin Dose 1.5 MLS/HR; Start 09/19/18 at 15:30 Metoclopramide HCl (Reglan) 5 mg Q6 IV Last administered on 09/22/18 11:12; Admin Dose 5 MG; Start 09/20/18 at 00:00 Eye Lubricant (Artificial Tears Oph) 2 drop QID BOTH EYES Last administered on 09/22/18 08:14; Admin Dose 2 DROP; Start 09/20/18 at 20:00 Piperacillin Sod/ Tazobactam Sod 50 ml @ 100 mls/hr Q8 IVPB Last administered on 09/22/18 05:38; Admin Dose 100 MLS/HR; Start 09/21/18 at 18:00 Nitroglycerin (Nitroglycerin 0.2 Mg/Hr) 1 patch DAILY TRANSDERM ; Start 09/22/18 at 11:30 MARGARITO DAMICO Sep 22, 2018 13:25
--- NOTE | 2018-09-22 14:38 | CONS ---
Assessment/Plan Assessment/Plan Assessment/Plan (Daily) 1. acute hyperkalemia - Improved 2. Hypertensive emergency on NTG drip 3. ESRD on HD MWF with acute hyperklaemia and acute fluid overload 4. Possible Cholecysitits 5. H/o CAD s/p CABG 6. H/O HTN 7. H/o HL 8. H/o DM II Plan: s/p HD 3 days in a row,HD ordered for tomorrow -will keep pt on MWF schedule Nifedipine 60mg pO BID with Minoxidil 5 mg BID, clonindine prn IV hydralazine pnr IV abx zosyn to cover for infeciton/cholecystitis will follow up Consultation Date/Type/Reason Admit Date/Time Sep 19, 2018 at 06:33 Initial Consult Date 09/19/18 Type of Consult NEPHROLOGY Requesting Provider: JULES BARRAZA MD Date/Time of Note DATE: 09/22/18 TIME: 14:38 Exam/Review of Systems Exam Vitals Vital Signs Date Temp Pulse Resp B/P (MAP) Pulse Ox O2 O2 Flow FiO2 Time Delivery Rate 09/22/18 63 14 173/75 97 14:00 (107) 09/22/18 98.6 13:15 09/22/18 Room Air 11:15 09/19/18 21 06:53 Intake and Output 09/21/18 09/21/18 09/22/18 1515:00 23:00 07:00 IntakeIntake Total 95 ml 370 ml 300 ml OutputOutput Total 200 ml 2925 ml 0 ml BalanceBalance -105 ml -2555 ml 300 ml Exam Constitutional: alert, distress Respiratory: clear to auscultation, normal air movement, diminished breath sounds Cardiovascular: regular rate and rhythm, nl pulses Gastrointestinal: soft, non-tender, tender (RUQ) Musculoskeletal: nl extremities to inspection, other Extremities: normal pulses, other (Chest permacath HD catheter ) 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: 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 POLISHER MACHINE II-XII intact, nl mental status, nl speech, nl strength Results Result Diagram: 09/20/18 0502 09/21/18 0446 Results 24hrs Laboratory Tests Test 09/21/18 20:50 09/22/18 01:59 09/22/18 07:31 09/22/18 11:12 Bedside Glucose 116 132 87 139 Medications Medication Current Medications Heparin Sodium (Porcine) (Heparin (1000 Units/ml)) 4,000 unit AFTER DIALYSIS CATHETER Last administered on 09/21/18at 14:53; Admin Dose 4,000 UNIT; Start 09/19/18 at 07:30 Mannitol 50 ml @ 50 mls/5 min WITH DIALYSIS PRN IV DISEQUILIBRIUM SYNDROME PPX; Start 09/19/18 at 07:30 Albumin Human 100 ml @ 100 mls/hr WITH DIALYSIS PRN IV SBP <90 DURING DIALYSIS; Start 09/19/18 at 07:30 Sodium Chloride (NS) -To prime the dialy... DIRECTED FOR HD PRN IV HD; Start 09/19/18 at 07:30 Acetaminophen (Tylenol Tab) 650 mg Q6 PRN PO .MILD PAIN 1-3 OR TEMP; Start 09/19/18 at 10:30 Ondansetron HCl (Zofran Inj) 4 mg Q4 PRN IV NAUSEA/VOMITING; Start 09/19/18 at 10:30 Diagnostic Test (Pha) (Accu-Chek) 1 ea 02 XX Last administered on 09/22/18at 02:00; Admin Dose 1 EA; Start 09/20/18 at 02:00 Insulin Aspart (Novolog Insulin Pen) NOVOLOG *MILD* ALGORITHM WITH MEALS BEDTIME SC ; Start 09/19/18 at 11:30 Miscellaneous Information 1 ea NOTE XX ; Start 09/19/18 at 11:00 Glucose (Glutose) 15 gm Q15M PRN PO DECREASED GLUCOSE; Start 09/19/18 at 11:00 Glucose (Glutose) 22.5 gm Q15M PRN PO DECREASED GLUCOSE; Start 09/19/18 at 11:00 Dextrose (D50w Syringe) 25 ml Q15M PRN IV DECREASED GLUCOSE; Start 09/19/18 at 11:00 Dextrose (D50w Syringe) 50 ml Q15M PRN IV DECREASED GLUCOSE; Start 09/19/18 at 11:00 Glucagon (Glucagen) 1 mg Q15M PRN IM DECREASED GLUCOSE; Start 09/19/18 at 11:00 Glucose (Glutose) 15 gm Q15M PRN BUCCAL DECREASED GLUCOSE; Start 09/19/18 at 11:00 Famotidine (Pepcid) 20 mg DAILY PO Last administered on 09/22/18at 08:11; Admin Dose 20 MG; Start 09/19/18 at 13:00 Nifedipine (Procardia Xl) 60 mg BID PO Last administered on 09/22/18 08:12; Admin Dose 60 MG; Start 09/19/18 at 12:30 Sevelamer Carbonate (Renvela) 0.8 gm WITH MEALS PO Last administered on 09/22/18 11:12; Admin Dose 0.8 GM; Start 09/19/18 at 17:35 Tamsulosin HCl (Flomax) 0.4 mg DAILY PO Last administered on 09/22/18 08:11; Admin Dose 0.4 MG; Start 09/19/18 at 12:30 Miscellaneous Information 15 ml BID XX ; Start 09/19/18 at 12:30; Status UNV Minoxidil (Loniten) 5 mg BID PO Last administered on 09/22/18 08:11; Admin Dose 5 MG; Start 09/19/18 at 13:30 Clonidine (Catapres) 0.2 mg Q6 PRN PO ELEVATED BLOOD PRESSURE Last administered on 09/20/18 14:57; Admin Dose 0.2 MG; Start 09/19/18 at 15:30 Nitroglycerin/ Dextrose 250 ml @ 1.5 mls/hr TITRATE IV Last administered on 09/21/18 09:00; Admin Dose 1.5 MLS/HR; Start 09/19/18 at 15:30 Metoclopramide HCl (Reglan) 5 mg Q6 IV Last administered on 09/22/18 11:12; Admin Dose 5 MG; Start 09/20/18 at 00:00 Eye Lubricant (Artificial Tears Oph) 2 drop QID BOTH EYES Last administered on 09/22/18 13:24; Admin Dose 2 DROP; Start 09/20/18 at 20:00 Piperacillin Sod/ Tazobactam Sod 50 ml @ 100 mls/hr Q8 IVPB Last administered on 09/22/18 13:25; Admin Dose 100 MLS/HR; Start 09/21/18 at 18:00 Nitroglycerin (Nitroglycerin 0.2 Mg/Hr) 1 patch DAILY TRANSDERM Last admin istered on 09/22/18 13:24; Admin Dose 1 PATCH; Start 09/22/18 at 11:30 VALERIA RODRÍGUEZ MD Sep 22, 2018 14:38
[2018-09-22] MEDS: NITROGLYCERIN 50 MG/D5W (PMX) 250 ML IV SCH (23:33)
[2018-09-23] VITALS (53 sets, daily range): BP systolic 102–200; BP diastolic 47–89; PULSE 55–93; RESP 12–23
[2018-09-23] MEDS: ACCU-CHEK XX SCH (01:15)
[2018-09-23] MEDS: PIPER-TAZO 2.25 GM (PMX) 50 ML IVPB SCH ×3 (05:44→21:43)
[2018-09-23] MEDS: METOCLOPRAMIDE 10 MG INJ IV SCH ×3 (05:44→18:54)
[2018-09-23] MEDS: INSULIN ASPART [NOVOLOG] 3 ML PEN SC SCH ×4 (07:35→20:47)
[2018-09-23] MEDS: SEVELAMER CARBONATE 0.8 GM PKT PO SCH ×3 (08:06→18:54)
--- NOTE | 2018-09-23 08:36 | CONS ---
Assessment/Plan Assessment/Plan Assessment/Plan (Daily) Assessment and recommendations; 1. Patient admitted with nausea vomiting with possibly subacute cholecystitis with interval improvement in symptoms. Patient maintained on Zosyn empirically. 2. Chronic renal failure, patient also had hyperkalemia required emergent hemodialysis. 3. Mild CHF on presentation, with interval resolution of her hemodialysis as well. 4. Hypertension, patient requiring nitroglycerin drip, currently at 105 mics per minute. 5. Anemia and thrombocytopenia. 6. History of prior CABG. 7. BPH. Change clonidine to 0.2 mg 3 times daily scheduled, add metoprolol 25 mg twice daily. Continue the supportive measures. Wean off nitroglycerin drip as tolerated. Hemodialysis per shuttle buggy operator. Continue Zosyn for now. Consultation Date/Type/Reason Admit Date/Time Sep 19, 2018 at 06:33 Initial Consult Date 09/21/18 Type of Consult Pulmonary Pulmonary consult requested for evaluation of shortness of breath. Patient is a pleasant 57-year-old male who came into the emergency room with complaints of nausea vomiting and mild shortness of breath. Upon further evaluation patient was diagnosed with severe hyperkalemia, also ultrasound abdomen was done which was indicative of possibly acute cholecystitis. However HIDA scan is negative and the patient also denies any further abdominal pain, nausea vomiting. Patient was emergently hemodialyzed yesterday because of hypertension, was transferred to ICU and currently maintained on nitroglycerin drip. Patient denies any shortness of breath, any chest pain, fever, cough, sputum production. Past medical history; 1. Hypertension. 2. End-stage renal disease, hemodialysis. 3. Chronic anemia. 4. Diabetes. 5. BPH. 6. Recent admission for left lower lobe pneumonia, status post biopsy which revealed organizing pneumonia. 7. Left corneal opacity. 8. Prior CABG. Medications; reviewed. Allergies; as outlined above. Social history; noncontributory. Family history; patient is single, has 2 children. Occupational history; patient is on disability. Review of systems; denies any headache, visual changes, complains of left eye blindness. Denies any further shortness of breath. Any coughing, wheezing, sputum production. Denies any abdominal pain, nausea vomiting. Any melena or hematochezia. Any edema orthopnea. Any weight change. General exam; middle-aged male, awake and alert. Currently no distress. Requesting Provider: OSTICK,JULES MD Date/Time of Note DATE: 09/23/18 TIME: 08:33 24 HR Interval Summary Free Text/Dictation Patient's condition is stable overall but still requiring nitroglycerin drip for hypertension. Patient complains of very mild cough. Denies any shortness of breath, chest pain, wheezing, any sputum production. General exam; middle-aged male, awake alert, having breakfast. Currently in no distress. Exam/Review of Systems Exam Vitals Vital Signs Date Temp Pulse Resp B/P (MAP) Pulse Ox O2 O2 Flow FiO2 Time Delivery Rate 09/23/18 78 23 160/71 97 06:30 (100) 09/23/18 Room Air 05:30 09/23/18 98.8 04:00 Intake and Output 09/22/18 09/22/18 09/23/18 1515:00 23:00 07:00 IntakeIntake Total 86 ml 159 ml 100 ml OutputOutput Total 0 ml 0 ml 20 ml BalanceBalance 86 ml 159 ml 80 ml Exam H EENT exam; supple neck, no JVD. No lymphadenopathy. Midline trachea. No thyromegaly. Patient has a left corneal opacity. Dentition is fair. No neck masses. Chest exam; clear to auscultation. S1-S2 audible, no murmurs. Regular rhythm. Abdomen exam; soft, no organomegaly. Nontender. Bowel sounds audible. Extremity exam; no peripheral edema or clubbing. BUSINESS INSIGHT AND ANALYTICS MANAGER exam; no focal deficit. Results Result Diagram: 09/23/18 0419 09/23/18 0419 Results 24hrs Laboratory Tests Test 09/22/18 11:12 09/22/18 17:19 09/22/18 21:09 09/23/18 01:17 Bedside Glucose 139 168 104 151 Test 09/23/18 04:19 09/23/18 08:04 White Blood Count 4.3 #L Red Blood Count 3.85 L Hemoglobin 11.5 L Hematocrit 35.0 L Mean Corpuscular Volume 90.9 Mean Corpuscular 29.9 Hemoglobin Mean Corpuscular 32.9 Hemoglobin Concent Red Cell Distribution 12.9 Width Platelet Count 90 L Mean Platelet Volume 10.9 H Immature Granulocytes % 0.200 Neutrophils % 50.9 Lymphocytes % 19.8 Monocytes % 9.2 Eosinophils % 19.4 H Basophils % 0.5 Nucleated Red Blood 0.0 Cells % Immature Granulocytes # 0.010 Neutrophils # 2.2 Lymphocytes # 0.9 Monocytes # 0.4 Eosinophils # 0.8 H Basophils # 0.0 Nucleated Red Blood 0.0 Cells # Sodium Level 135 Potassium Level 5.4 H Chloride Level 94 L Carbon Dioxide Level 23 Anion Gap 18 H Blood Urea Nitrogen 71 #H Creatinine 9.17 #H Est Glomerular Filtrat 6 L Rate mL/min Glucose Level 114 Calcium Level 7.2 L Bedside Glucose 111 Medications Medication Current Medications Heparin Sodium (Porcine) (Heparin (1000 Units/ml)) 4,000 unit AFTER DIALYSIS CATHETER Last administered on 09/21/18at 14:53; Admin Dose 4,000 UNIT; Start 09/19/18 at 07:30 Mannitol 50 ml @ 50 mls/5 min WITH DIALYSIS PRN IV DISEQUILIBRIUM SYNDROME PPX; Start 09/19/18 at 07:30 Albumin Human 100 ml @ 100 mls/hr WITH DIALYSIS PRN IV SBP <90 DURING DIALYSIS; Start 09/19/18 at 07:30 Sodium Chloride (NS) -To prime the dialy... DIRECTED FOR HD PRN IV HD; Start 09/19/18 at 07:30 Acetaminophen (Tylenol Tab) 650 mg Q6 PRN PO .MILD PAIN 1-3 OR TEMP; Start 09/19/18 at 10:30 Ondansetron HCl (Zofran Inj) 4 mg Q4 PRN IV NAUSEA/VOMITING Last administered on 09/22/18at 21:11; Admin Dose 4 MG; Start 09/19/18 at 10:30 Diagnostic Test (Pha) (Accu-Chek) 1 ea 02 XX Last administered on 09/23/18at 01:15; Admin Dose 1 EA; Start 09/20/18 at 02:00 Insulin Aspart (Novolog Insulin Pen) NOVOLOG *MILD* ALGORITHM WITH MEALS BEDTIME SC Last administered on 09/22/18at 17:21; Admin Dose 1 UNIT; Start 09/19/18 at 11:30 Miscellaneous Information 1 ea NOTE XX ; Start 09/19/18 at 11:00 Glucose (Glutose) 15 gm Q15M PRN PO DECREASED GLUCOSE; Start 09/19/18 at 11:00 Glucose (Glutose) 22.5 gm Q15M PRN PO DECREASED GLUCOSE; Start 09/19/18 at 11:00 Dextrose (D50w Syringe) 25 ml Q15M PRN IV DECREASED GLUCOSE; Start 09/19/18 at 11:00 Dextrose (D50w Syringe) 50 ml Q15M PRN IV DECREASED GLUCOSE; Start 09/19/18 at 11:00 Glucagon (Glucagen) 1 mg Q15M PRN IM DECREASED GLUCOSE; Start 09/19/18 at 11:00 Glucose (Glutose) 15 gm Q15M PRN BUCCAL DECREASED GLUCOSE; Start 09/19/18 at 11:00 Famotidine (Pepcid) 20 mg DAILY PO Last administered on 09/22/18 08:11; Admin Dose 20 MG; Start 09/19/18 at 13:00 Nifedipine (Procardia Xl) 60 mg BID PO Last administered on 09/22/18 21:11; Admin Dose 60 MG; Start 09/19/18 at 12:30 Sevelamer Carbonate (Renvela) 0.8 gm WITH MEALS PO Last administered on 09/23/18 08:06; Admin Dose 0.8 GM; Start 09/19/18 at 17:35 Tamsulosin HCl (Flomax) 0.4 mg DAILY PO Last administered on 09/22/18 08:11; Admin Dose 0.4 MG; Start 09/19/18 at 12:30 Miscellaneous Information 15 ml BID XX ; Start 09/19/18 at 12:30; Status UNV Minoxidil (Loniten) 5 mg BID PO Last administered on 09/22/18 21:10; Admin Dose 5 MG; Start 09/19/18 at 13:30 Clonidine (Catapres) 0.2 mg Q6 PRN PO ELEVATED BLOOD PRESSURE Last administered on 09/20/18 14:57; Admin Dose 0.2 MG; Start 09/19/18 at 15:30 Nitroglycerin/ Dextrose 250 ml @ 1.5 mls/hr TITRATE IV Last administered on 09/22/18 23:33; Admin Dose 1.5 MLS/HR; Start 09/19/18 at 15:30 Metoclopramide HCl (Reglan) 5 mg Q6 IV Last administered on 09/23/18 05:44; Admin Dose 5 MG; Start 09/20/18 at 00:00 Eye Lubricant (Artificial Tears Oph) 2 drop QID BOTH EYES Last administered on 09/22/18 21:12; Admin Dose 2 DROP; Start 09/20/18 at 20:00 Piperacillin Sod/ Tazobactam Sod 50 ml @ 100 mls/hr Q8 IVPB Last administered on 09/23/18at 05:44; Admin Dose 100 MLS/HR; Start 09/21/18 at 18:00 Nitroglycerin (Nitroglycerin 0.2 Mg/Hr) 1 patch DAILY TRANSDERM Last administered on 09/22/18at 13:24; Admin Dose 1 PATCH; Start 09/22/18 at 11:30 JANES DOMINGO Sep 23, 2018 08:36
[2018-09-23] MEDS ORDERED: METOPROLOL 25 MG TAB PO SCH (09:00)
[2018-09-23] MEDS: NITROGLYCERIN 50 MG/D5W (PMX) 250 ML IV SCH ×2 (09:10→16:13)
--- NOTE | 2018-09-23 09:37 | CONS ---
Assessment/Plan Assessment/Plan Assessment/Plan (Daily) 1. acute hyperkalemia - Improved 2. Hypertensive emergency on NTG drip 3. ESRD on HD MWF with acute hyperklaemia and acute fluid overload 4. Possible Cholecysitits 5. H/o CAD s/p CABG 6. H/O HTN 7. H/o HL 8. H/o DM II Plan: s/p HD today 3 L removed, -will keep pt on MWF schedule Nifedipine 60mg pO BID with Minoxidil 5 mg BID, clonindine prn IV hydralazine pnr IV abx zosyn to cover for infeciton/cholecystitis, GI consulted on the case will follow up Consultation Date/Type/Reason Admit Date/Time Sep 19, 2018 at 06:33 Initial Consult Date 09/19/18 Type of Consult NEPHROLOGY Requesting Provider: JULES BARRAZA MD Date/Time of Note DATE: 09/23/18 TIME: 09:37 24 HR Interval Summary Free Text/Dictation plan for HD today Exam/Review of Systems Exam Vitals Vital Signs Date Temp Pulse Resp B/P (MAP) Pulse Ox O2 O2 Flow FiO2 Time Delivery Rate 09/23/18 78 23 160/71 97 06:30 (100) 09/23/18 Room Air 05:30 09/23/18 98.8 04:00 Intake and Output 09/22/18 09/22/18 09/23/18 1515:00 23:00 07:00 IntakeIntake Total 86 ml 159 ml 100 ml OutputOutput Total 0 ml 0 ml 20 ml BalanceBalance 86 ml 159 ml 80 ml Results Result Diagram: 09/23/18 0419 09/23/18 0419 Results 24hrs Laboratory Tests Test 09/22/18 11:12 09/22/18 17:19 09/22/18 21:09 09/23/18 01:17 Bedside Glucose 139 168 104 151 Test 09/23/18 04:19 09/23/18 08:04 White Blood Count 4.3 #L Red Blood Count 3.85 L Hemoglobin 11.5 L Hematocrit 35.0 L Mean Corpuscular Volume 90.9 Mean Corpuscular 29.9 Hemoglobin Mean Corpuscular 32.9 Hemoglobin Concent Red Cell Distribution 12.9 Width Platelet Count 90 L Mean Platelet Volume 10.9 H Immature Granulocytes % 0.200 Neutrophils % 50.9 Lymphocytes % 19.8 Monocytes % 9.2 Eosinophils % 19.4 H Basophils % 0.5 Nucleated Red Blood 0.0 Cells % Immature Granulocytes # 0.010 Neutrophils # 2.2 Lymphocytes # 0.9 Monocytes # 0.4 Eosinophils # 0.8 H Basophils # 0.0 Nucleated Red Blood 0.0 Cells # Sodium Level 135 Potassium Level 5.4 H Chloride Level 94 L Carbon Dioxide Level 23 Anion Gap 18 H Blood Urea Nitrogen 71 #H Creatinine 9.17 #H Est Glomerular Filtrat 6 L Rate mL/min Glucose Level 114 Calcium Level 7.2 L Bedside Glucose 111 Medications Medication Current Medications Heparin Sodium (Porcine) (Heparin (1000 Units/ml)) 4,000 unit AFTER DIALYSIS CA THETER Last administered on 09/21/18at 14:53; Admin Dose 4,000 UNIT; Start 09/19/18 at 07:30 Mannitol 50 ml @ 50 mls/5 min WITH DIALYSIS PRN IV DISEQUILIBRIUM SYNDROME PPX; Start 09/19/18 at 07:30 Albumin Human 100 ml @ 100 mls/hr WITH DIALYSIS PRN IV SBP <90 DURING DIALYSIS; Start 09/19/18 at 07:30 Sodium Chloride (NS) -To prime the dialy... DIRECTED FOR HD PRN IV HD; Start 09/19/18 at 07:30 Acetaminophen (Tylenol Tab) 650 mg Q6 PRN PO .MILD PAIN 1-3 OR TEMP; Start 09/19/18 at 10:30 Ondansetron HCl (Zofran Inj) 4 mg Q4 PRN IV NAUSEA/VOMITING Last administered on 09/22/18at 21:11; Admin Dose 4 MG; Start 09/19/18 at 10:30 Diagnostic Test (Pha) (Accu-Chek) 1 ea 02 XX Last administered on 09/23/18at 01:15; Admin Dose 1 EA; Start 09/20/18 at 02:00 Insulin Aspart (Novolog Insulin Pen) NOVOLOG *MILD* ALGORITHM WITH MEALS BEDTIME SC Last administered on 09/22/18at 17:21; Admin Dose 1 UNIT; Start 09/19/18 at 11:30 Miscellaneous Information 1 ea NOTE XX ; Start 09/19/18 at 11:00 Glucose (Glutose) 15 gm Q15M PRN PO DECREASED GLUCOSE; Start 09/19/18 at 11:00 Glucose (Glutose) 22.5 gm Q15M PRN PO DECREASED GLUCOSE; Start 09/19/18 at 11:00 Dextrose (D50w Syringe) 25 ml Q15M PRN IV DECREASED GLUCOSE; Start 09/19/18 at 11:00 Dextrose (D50w Syringe) 50 ml Q15M PRN IV DECREASED GLUCOSE; Start 09/19/18 at 11:00 Glucagon (Glucagen) 1 mg Q15M PRN IM DECREASED GLUCOSE; Start 09/19/18 at 11:00 Glucose (Glutose) 15 gm Q15M PRN BUCCAL DECREASED GLUCOSE; Start 09/19/18 at 11:00 Famotidine (Pepcid) 20 mg DAILY PO Last administered on 09/22/18 08:11; Admin Dose 20 MG; Start 09/19/18 at 13:00 Nifedipine (Procardia Xl) 60 mg BID PO Last administered on 09/22/18 21:11; Admin Dose 60 MG; Start 09/19/18 at 12:30 Sevelamer Carbonate (Renvela) 0.8 gm WITH MEALS PO Last administered on 09/23/18 08:06; Admin Dose 0.8 GM; Start 09/19/18 at 17:35 Tamsulosin HCl (Flomax) 0.4 mg DAILY PO Last administered on 09/22/18 08:11; Admin Dose 0.4 MG; Start 09/19/18 at 12:30 Miscellaneous Information 15 ml BID XX ; Start 09/19/18 at 12:30; Status UNV Minoxidil (Loniten) 5 mg BID PO Last administered on 09/22/18 21:10; Admin Dose 5 MG; Start 09/19/18 at 13:30 Nitroglycerin/ Dextrose 250 ml @ 1.5 mls/hr TITRATE IV Last administered on 09/23/18 09:10; Admin Dose 1.5 MLS/HR; Start 09/19/18 at 15:30 Metoclopramide HCl (Reglan) 5 mg Q6 IV Last administered on 09/23/18 05:44; Admin Dose 5 MG; Start 09/20/18 at 00:00 Eye Lubricant (Artificial Tears Oph) 2 drop QID BOTH EYES Last administered on 09/22/18 21:12; Admin Dose 2 DROP; Start 09/20/18 at 20:00 Piperacillin Sod/ Tazobactam Sod 50 ml @ 100 mls/hr Q8 IVPB Last administered on 09/23/18at 05:44; Admin Dose 100 MLS/HR; Start 09/21/18 at 18:00 Nitroglycerin (Nitroglycerin 0.2 Mg/Hr) 1 patch DAILY TRANSDERM Last administered on 09/22/18at 13:24; Admin Dose 1 PATCH; Start 09/22/18 at 11:30 Metoprolol Tartrate (Lopressor) 25 mg BID PO ; Start 09/23/18 at 09:00 Clonidine (Catapres) 0.2 mg TID PO ; Start 09/23/18 at 09:00 VALERIA RODRÍGUEZ MD Sep 23, 2018 09:37
--- NOTE | 2018-09-23 10:58 | PN ---
Date/Time of Note Date/Time of Note DATE: 09/23/18 TIME: 10:53 Assessment/Plan VTE Prophylaxis Risk score (from Ns)>0 risk: 3 SCD applied (from Ns): Yes SCD contraindicated: other Pharmacological prophylaxis: other Pharm contraindication: other Lines/Catheters IV Catheter Type (from Nrsg): HD CATH Central line still needed: Yes Urinary Cath still in place: No Assessment/Plan Assessment/Plan - Hypertensive emergency, continue nitroglycerin drip patient is currently on minoxidil Procardia and clonidine. - Hyperkalemia today; s/p emergent hemodialysis - Dr. Ortez follows in nephrology consultation. - Abdominal pain most likely secondary to gastritis versus PUD, abdominal ultrasound notable for distended gallbladder with marked wall thickening. - Continue PPI and Reglan. - Dr. Winkler follows in GI consultation. - Possible cholecystitis, continue Zosyn - LLL mass decreased with pleural consolidation increased in volume per recent CT. - Dr Mueller follows in pulmonology consultation. - HTN - DM Glycemic control - CAD, Hx of CABG - ESRD on HD - Legal blindness. No acute issue. - MRSA of nares colonization Further recommendations based on clinical course. Plan of care discussed with Dr. Reagan. Result Diagram: 09/23/18 0419 09/23/18 0419 Results 24hrs Laboratory Tests Test 09/22/18 11:12 09/22/18 17:19 09/22/18 21:09 09/23/18 01:17 Bedside Glucose 139 168 104 151 Test 09/23/18 04:19 09/23/18 08:04 White Blood Count 4.3 #L Red Blood Count 3.85 L Hemoglobin 11.5 L Hematocrit 35.0 L Mean Corpuscular Volume 90.9 Mean Corpuscular 29.9 Hemoglobin Mean Corpuscular 32.9 Hemoglobin Concent Red Cell Distribution 12.9 Width Platelet Count 90 L Mean Platelet Volume 10.9 H Immature Granulocytes % 0.200 Neutrophils % 50.9 Lymphocytes % 19.8 Monocytes % 9.2 Eosinophils % 19.4 H Basophils % 0.5 Nucleated Red Blood 0.0 Cells % Immature Granulocytes # 0.010 Neutrophils # 2.2 Lymphocytes # 0.9 Monocytes # 0.4 Eosinophils # 0.8 H Basophils # 0.0 Nucleated Red Blood 0.0 Cells # Sodium Level 135 Potassium Level 5.4 H Chloride Level 94 L Carbon Dioxide Level 23 Anion Gap 18 H Blood Urea Nitrogen 71 #H Creatinine 9.17 #H Est Glomerular Filtrat 6 L Rate mL/min Glucose Level 114 Calcium Level 7.2 L Bedside Glucose 111 Subjective 24 Hr Interval Summary Free Text/Dictation - patient seen in ICU - Hyperkalaemia - HD today - denies any complaints - no new issues reported last night per staff Constitutional: requiring IVF, requiring O2 Eyes: other (legally blind) ENT: no complaints Respiratory: no complaints Cardiovascular: no complaints Gastrointestinal: no complaints Genitourinary: no complaints Musculoskeletal: no complaints Skin: no complaints Neurologic: no complaints Endocrine: no complaints Lymphatic: no complaints Psychological: nl mood/affect Exam/Review of Systems Exam Vitals Vital Signs Date Temp Pulse Resp B/P (MAP) Pulse Ox O2 O2 Flow FiO2 Time Delivery Rate 09/23/18 78 23 160/71 97 06:30 (100) 09/23/18 Room Air 05:30 09/23/18 98.8 04:00 Intake and Output 09/22/18 09/22/18 09/23/18 1515:00 23:00 07:00 IntakeIntake Total 86 ml 159 ml 100 ml OutputOutput Total 0 ml 0 ml 20 ml BalanceBalance 86 ml 159 ml 80 ml Constitutional: alert, oriented, well developed Psych: nl mood/affect Head: atraumatic Eyes: nl lids Neck: non-tender Respiratory: diminished breath sounds Cardiovascular: nl pulses, other Gastrointestinal: soft, non-tender Musculoskeletal: nl extremities to inspection Extremities: normal pulses 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: nl speech, other (alert/responsi) Lymph: nontender Results Results 24hrs Laboratory Tests Test 09/22/18 11:12 09/22/18 17:19 09/22/18 21:09 09/23/18 01:17 Bedside Glucose 139 168 104 151 Test 09/23/18 04:19 09/23/18 08:04 White Blood Count 4.3 #L Red Blood Count 3.85 L Hemoglobin 11.5 L Hematocrit 35.0 L Mean Corpuscular Volume 90.9 Mean Corpuscular 29.9 Hemoglobin Mean Corpuscular 32.9 Hemoglobin Concent Red Cell Distribution 12.9 Width Platelet Count 90 L Mean Platelet Volume 10.9 H Immature Granulocytes % 0.200 Neutrophils % 50.9 Lymphocytes % 19.8 Monocytes % 9.2 Eosinophils % 19.4 H Basophils % 0.5 Nucleated Red Blood 0.0 Cells % Immature Granulocytes # 0.010 Neutrophils # 2.2 Lymphocytes # 0.9 Monocytes # 0.4 Eosinophils # 0.8 H Basophils # 0.0 Nucleated Red Blood 0.0 Cells # Sodium Level 135 Potassium Level 5.4 H Chloride Level 94 L Carbon Dioxide Level 23 Anion Gap 18 H Blood Urea Nitrogen 71 #H Creatinine 9.17 #H Est Glomerular Filtrat 6 L Rate mL/min Glucose Level 114 Calcium Level 7.2 L Bedside Glucose 111 Medications Medication Current Medications Heparin Sodium (Porcine) (Heparin (1000 Units/ml)) 4,000 unit AFTER DIALYSIS CATHETER Last administered on 09/21/18at 14:53; Admin Dose 4,000 UNIT; Start 09/19/18 at 07:30 Mannitol 50 ml @ 50 mls/5 min WITH DIALYSIS PRN IV DISEQUILIBRIUM SYNDROME PPX; Start 09/19/18 at 07:30 Albumin Human 100 ml @ 100 mls/hr WITH DIALYSIS PRN IV SBP <90 DURING DIALYSIS; Start 09/19/18 at 07:30 Sodium Chloride (NS) -To prime the dialy... DIRECTED FOR HD PRN IV HD; Start 09/19/18 at 07:30 Acetaminophen (Tylenol Tab) 650 mg Q6 PRN PO .MILD PAIN 1-3 OR TEMP; Start 09/19/18 at 10:30 Ondansetron HCl (Zofran Inj) 4 mg Q4 PRN IV NAUSEA/VOMITING Last administered on 09/22/18at 21:11; Admin Dose 4 MG; Start 09/19/18 at 10:30 Diagnostic Test (Pha) (Accu-Chek) 1 ea 02 XX Last administered on 09/23/18at 01:15; Admin Dose 1 EA; Start 09/20/18 at 02:00 Insulin Aspart (Novolog Insulin Pen) NOVOLOG *MILD* ALGORITHM WITH MEALS BEDTIME SC Last administered on 09/22/18at 17:21; Admin Dose 1 UNIT; Start 09/19/18 at 11:30 Miscellaneous Information 1 ea NOTE XX ; Start 09/19/18 at 11:00 Glucose (Glutose) 15 gm Q15M PRN PO DECREASED GLUCOSE; Start 09/19/18 at 11:00 Glucose (Glutose) 22.5 gm Q15M PRN PO DECREASED GLUCOSE; Start 09/19/18 at 11:00 Dextrose (D50w Syringe) 25 ml Q15M PRN IV DECREASED GLUCOSE; Start 09/19/18 at 11:00 Dextrose (D50w Syringe) 50 ml Q15M PRN IV DECREASED GLUCOSE; Start 09/19/18 at 11:00 Glucagon (Glucagen) 1 mg Q15M PRN IM DECREASED GLUCOSE; Start 09/19/18 at 11:00 Glucose (Glutose) 15 gm Q15M PRN BUCCAL DECREASED GLUCOSE; Start 09/19/18 at 11:00 Famotidine (Pepcid) 20 mg DAILY PO Last administered on 09/22/18 08:11; Admin Dose 20 MG; Start 09/19/18 at 13:00 Nifedipine (Procardia Xl) 60 mg BID PO Last administered on 09/22/18 21:11; Admin Dose 60 MG; Start 09/19/18 at 12:30 Sevelamer Carbonate (Renvela) 0.8 gm WITH MEALS PO Last administered on 09/23/18 08:06; Admin Dose 0.8 GM; Start 09/19/18 at 17:35 Tamsulosin HCl (Flomax) 0.4 mg DAILY PO Last administered on 09/22/18 08:11; Admin Dose 0.4 MG; Start 09/19/18 at 12:30 Miscellaneous Information 15 ml BID XX ; Start 09/19/18 at 12:30; Status UNV Minoxidil (Loniten) 5 mg BID PO Last administered on 09/22/18 21:10; Admin Dose 5 MG; Start 09/19/18 at 13:30 Nitroglycerin/ Dextrose 250 ml @ 1.5 mls/hr TITRATE IV Last administered on 09/23/18 09:10; Admin Dose 1.5 MLS/HR; Start 09/19/18 at 15:30 Metoclopramide HCl (Reglan) 5 mg Q6 IV Last administered on 09/23/18 05:44; Admin Dose 5 MG; Start 09/20/18 at 00:00 Eye Lubricant (Artificial Tears Oph) 2 drop QID BOTH EYES Last administered on 09/22/18 21:12; Admin Dose 2 DROP; Start 09/20/18 at 20:00 Piperacillin Sod/ Tazobactam Sod 50 ml @ 100 mls/hr Q8 IVPB Last administered on 09/23/18at 05:44; Admin Dose 100 MLS/HR; Start 09/21/18 at 18:00 Nitroglycerin (Nitroglycerin 0.2 Mg/Hr) 1 patch DAILY TRANSDERM Last administered on 09/22/18at 13:24; Admin Dose 1 PATCH; Start 09/22/18 at 11:30 Metoprolol Tartrate (Lopressor) 25 mg BID PO ; Start 09/23/18 at 09:00 Clonidine (Catapres) 0.2 mg TID PO ; Start 09/23/18 at 09:00 COREY SARAVIA Sep 23, 2018 10:57
[2018-09-23] MEDS: NIFEdipine (XL) 60 MG TAB PO SCH ×2 (11:27→20:46)
[2018-09-23] MEDS: NITROGLYCERIN 0.2 MG/HR PATCH TRANSDERM SCH (11:27)
[2018-09-23] MEDS: MINOXIDIL 2.5 MG TAB PO SCH ×2 (11:28→20:47)
[2018-09-23] MEDS: TAMSULOSIN (SR) 0.4 MG CAP PO SCH (11:29)
[2018-09-23] MEDS: ARTIFICIAL TEARS 15 ML OPH BOTH EYES SCH ×4 (11:29→20:45)
[2018-09-23] MEDS: FAMOTIDINE 20 MG TAB PO SCH (11:29)
--- NOTE | 2018-09-23 13:06 | CONS ---
Assessment/Plan Assessment/Plan Hospital Course (Demo Recall) 1. Hypertensive urgency/resistant hypertension 2. History of coronary artery disease 3. History of most likely [place] and coronary artery bypass graft 4. Renal failure on dialysis 5. Pulmonary vascular congestion/fluid overload 6. Diabetes 7. Dyslipidemia 8. Hyperkalemia 9. Pulmonary nodule 10. severe hyper K: corrected with 11. Pneumonia recently treated Recommendations: Continue with the Procardia. Will change the metoprolol to labetalol and titrate off nitroglycerin drip as needed Continue with minoxidil now at 5 bid Clonidine will be continued as a as needed as well. Lipid panel reviewed and showed LDL at goal of less than 70 Hemodialysis as per renal follow up with pulmonary recommendations regarding antibiotic management as needed respiratory care Thank you for his referral. We will continue to follow along with you NAHUN RUSSELL MD [facility] Consultation Date/Type/Reason Admit Date/Time Sep 19, 2018 at 06:33 Date of Consultation: Sep 23, 2018 Type of Consult Cardiology Reason for Consultation HTN Requesting Provider: COREY SARAVIA Date/Time of Note DATE: 09/23/18 TIME: 13:03 Hx of Present Illness Interventional cardiology consultation note Chief complaint: Hyper K Reason for consult: Coronary artery disease, resistent hypertension History of present illness: Thank you for this referral. History was obtained from the patient who is a poor historian from discussion with physician staff as well as review of old charts . This is a unfortunate 57-year-old gentleman with history of renal failure on dialysis diabetes coronary artery disease status post coronary bypass graft probably a year ago, who came to emergency room last night with complaint of shortness of breath and cough mostly. pt was noted to be severely hyperkalemic. he is also hypertensive and on NTG drip in ICU. Allergies: Reported to hydralazine and simvastatin details unclear Medications were reviewed as per medical reconciliation sheet Family history: Denies any history of early coronary artery disease Social history: Denies any tobacco alcohol drug abuse He said that his sister put his medication for him when he takes them Past medical history: Coronary artery disease status post [place] probably status post bypass surgery probably about a year ago per his report unclear how many vessels were bypassed Hypertension Diabetes over 20 years Dyslipidemia Blindness most likely diabetic retinopathy Renal failure on hemodialysis over the past 4-5 years Review of system: Patient denies all others except for above-mentioned Past Medical History Home Meds Active Scripts Nifedipine (Procardia Xl) 60 Mg Tab.er.24, 60 MG PO BID for 30 Days, TAB Prov:MARGARITO DAMICO 08/25/18 Minoxidil* (Lonitin*) 2.5 Mg Tab, 5 MG PO BID for 30 Days, TAB Prov:MARGARITO DAMICO 08/25/18 Labetalol Hcl* (Labetalol Hcl*) 200 Mg Tablet, 400 MG PO BID for 30 Days, TAB Prov:MARGARITO DAMICO 08/25/18 Reported Medications Isosorbide Mononitrate* (Isosorbide Mononitrate*) 60 Mg Tab.er.24h, 60 MG PO DAILY, TAB 08/15/18 Losartan Potassium* (Losartan Potassium*) 50 Mg Tablet, 50 MG PO DAILY, TAB 08/15/18 Famotidine* (Famotidine*) 20 Mg Tablet, 20 MG PO BID, #60 TAB 08/15/18 Atropine Sulfate/0.9 %Sod Chlr (Atropine 0.01%-Ns Eye Drops) 10 Ml Drops, 15 ML OP BID, BOTTLE 08/15/18 Tamsulosin Hcl* (Tamsulosin Hcl*) 0.4 Mg Cap.er.24h, 0.4 MG PO DAILY, CAP 08/15/18 Clonidine Hcl* (Clonidine Hcl*) 0.1 Mg Tab, 0.2 MG PO BID PRN for ELEVATED BLOOD PRESSURE, TAB 08/15/18 Sevelamer Carbonate* (Renvela*) 800 Mg Tablet, 0.8 GM PO WITH MEALS, TAB 08/15/18 Medications Current Medications Heparin Sodium (Porcine) (Heparin (1000 Units/ml)) 4,000 unit AFTER DIALYSIS CATHETER Last administered on 09/21/18at 14:53; Admin Dose 4,000 UNIT; Start 09/19/18 at 07:30 Mannitol 50 ml @ 50 mls/5 min WITH DIALYSIS PRN IV DISEQUILIBRIUM SYNDROME PPX; Start 09/19/18 at 07:30 Albumin Human 100 ml @ 100 mls/hr WITH DIALYSIS PRN IV SBP <90 DURING DIALYSIS; Start 09/19/18 at 07:30 Sodium Chloride (NS) -To prime the dialy... DIRECTED FOR HD PRN IV HD; Start 09/19/18 at 07:30 Acetaminophen (Tylenol Tab) 650 mg Q6 PRN PO .MILD PAIN 1-3 OR TEMP; Start 09/19/18 at 10:30 Ondansetron HCl (Zofran Inj) 4 mg Q4 PRN IV NAUSEA/VOMITING Last administered on 09/22/18 21:11; Admin Dose 4 MG; Start 09/19/18 at 10:30 Diagnostic Test (Pha) (Accu-Chek) 1 ea 02 XX Last administered on 09/23/18at 01:15; Admin Dose 1 EA; Start 09/20/18 at 02:00 Insulin Aspart (Novolog Insulin Pen) NOVOLOG *MILD* ALGORITHM WITH MEALS BEDTIME SC Last administered on 09/22/18 17:21; Admin Dose 1 UNIT; Start 09/19/18 at 11:30 Miscellaneous Information 1 ea NOTE XX ; Start 09/19/18 at 11:00 Glucose (Glutose) 15 gm Q15M PRN PO DECREASED GLUCOSE; Start 09/19/18 at 11:00 Glucose (Glutose) 22.5 gm Q15M PRN PO DECREASED GLUCOSE; Start 09/19/18 at 11:00 Dextrose (D50w Syringe) 25 ml Q15M PRN IV DECREASED GLUCOSE; Start 09/19/18 at 11:00 Dextrose (D50w Syringe) 50 ml Q15M PRN IV DECREASED GLUCOSE; Start 09/19/18 at 11:00 Glucagon (Glucagen) 1 mg Q15M PRN IM DECREASED GLUCOSE; Start 09/19/18 at 11:00 Glucose (Glutose) 15 gm Q15M PRN BUCCAL DECREASED GLUCOSE; Start 09/19/18 at 11:00 Famotidine (Pepcid) 20 mg DAILY PO Last administered on 09/23/18 11:29; Admin Dose 20 MG; Start 09/19/18 at 13:00 Nifedipine (Procardia Xl) 60 mg BID PO Last administered on 09/23/18 11:27; Admin Dose 60 MG; Start 09/19/18 at 12:30 Sevelamer Carbonate (Renvela) 0.8 gm WITH MEALS PO Last administered on 09/23/18 08:06; Admin Dose 0.8 GM; Start 09/19/18 at 17:35 Tamsulosin HCl (Flomax) 0.4 mg DAILY PO Last administered on 09/23/18 11:29; Admin Dose 0.4 MG; Start 09/19/18 at 12:30 Miscellaneous Information 15 ml BID XX ; Start 09/19/18 at 12:30; Status UNV Minoxidil (Loniten) 5 mg BID PO Last administered on 09/23/18 11:28; Admin Dose 5 MG; Start 09/19/18 at 13:30 Nitroglycerin/ Dextrose 250 ml @ 1.5 mls/hr TITRATE IV Last administered on 09/23/18 09:10; Admin Dose 1.5 MLS/HR; Start 09/19/18 at 15:30 Metoclopramide HCl (Reglan) 5 mg Q6 IV Last administered on 09/23/18 05:44; Admin Dose 5 MG; Start 09/20/18 at 00:00 Eye Lubricant (Artificial Tears Oph) 2 drop QID BOTH EYES Last administered on 09/23/18 11:29; Admin Dose 2 DROP; Start 09/20/18 at 20:00 Piperacillin Sod/ Tazobactam Sod 50 ml @ 100 mls/hr Q8 IVPB Last administered on 09/23/18 05:44; Admin Dose 100 MLS/HR; Start 09/21/18 at 18:00 Nitroglycerin (Nitroglycerin 0.2 Mg/Hr) 1 patch DAILY TRANSDERM Last admi nistered on 09/23/18 11:27; Admin Dose 1 PATCH; Start 09/22/18 at 11:30 Metoprolol Tartrate (Lopressor) 25 mg BID PO Last administered on 09/23/18 11:28; Admin Dose 25 MG; Start 09/23/18 at 09:00 Clonidine (Catapres) 0.2 mg TID PO Last administered on 09/23/18 11:28; Admin Dose 0.2 MG; Start 09/23/18 at 09:00 Allergies: Coded Allergies: hydralazine (Verified Allergy, Unknown, 08/15/18) simvastatin (Verified Allergy, Unknown, 08/15/18) Past Surgical History Past Surgical Hx: other (Lung Biopsy for LLL mass, Permacath HD catheter, CABG ) Social History Alcohol Use: none Smoking Status: Never smoker Drug Use: none Exam/Review of Systems Vital Signs Vitals Vital Signs Date Temp Pulse Resp B/P (MAP) Pulse Ox O2 O2 Flow FiO2 Time Delivery Rate 09/23/18 69 08:00 09/23/18 23 160/71 97 06:30 (100) 09/23/18 Room Air 05:30 09/23/18 98.8 04:00 Intake and Output 09/22/18 09/22/18 09/23/18 1515:00 23:00 07:00 IntakeIntake Total 86 ml 159 ml 100 ml OutputOutput Total 0 ml 0 ml 20 ml BalanceBalance 86 ml 159 ml 80 ml Exam Exam General: no acute distress HEENT: NC/AT. pupils are equal. round. NECK: NO JVD. no stridor. Chest: Status post sternotomy CV: RRR. systolic murmur; no gallop or rubs. PULM: no wheezing + rhonchi. GI: SOFT, NT, ND, no rebound or guarding Extremity: trace B/L LE edema. no clubbing. neuro: awake and alert, OX3. Psych: calm and pleasant rectal: deferred Normal left ventricular systolic function. Normal left ventricular cavity size. Ejection fraction is visually estimated at 60 %. Tissue Doppler/Mitral Doppler indices are consistent with impaired relaxation (Stage I diastolic dysfunction). Mild mitral leaflet calcification. Mild mitral annular calcification. Mild mitral valve regurgitation. No significant aortic stenosis or insufficiency. Aortic cusps appear mildly calcified. Normal appearance of the tricuspid valve. Estimated peak PA systolic pressure 36 mmHg. There is mild tricuspid regurgitation. Echocardiogram done in 2019 shows: Normal left ventricular systolic function. Normal left ventricular cavity size. Ejection fraction is visually estimated at 60 %. Tissue Doppler/Mitral Doppler indices are consistent with impaired relaxation (Stage I diastolic dysfunction). Mild mitral leaflet calcification. Mild mitral annular calcification. Mild mitral valve regurgitation. No significant aortic stenosis or insufficiency. Aortic cusps appear mildly calcified. Normal appearance of the tricuspid valve. Estimated peak PA systolic pressure 36 mmHg. There is mild tricuspid regurgitation. Labs Result Diagram: 09/23/18 0419 09/23/18 0419 Results 24hrs Laboratory Tests Test 09/22/18 17:19 09/22/18 21:09 09/23/18 01:17 09/23/18 04:19 Bedside Glucose 168 104 151 White Blood Count 4.3 #L Red Blood Count 3.85 L Hemoglobin 11.5 L Hematocrit 35.0 L Mean Corpuscular Volume 90.9 Mean Corpuscular 29.9 Hemoglobin Mean Corpuscular 32.9 Hemoglobin Concent Red Cell Distribution 12.9 Width Platelet Count 90 L Mean Platelet Volume 10.9 H Immature Granulocytes % 0.200 Neutrophils % 50.9 Lymphocytes % 19.8 Monocytes % 9.2 Eosinophils % 19.4 H Basophils % 0.5 Nucleated Red Blood 0.0 Cells % Immature Granulocytes # 0.010 Neutrophils # 2.2 Lymphocytes # 0.9 Monocytes # 0.4 Eosinophils # 0.8 H Basophils # 0.0 Nucleated Red Blood 0.0 Cells # Sodium Level 135 Potassium Level 5.4 H Chloride Level 94 L Carbon Dioxide Level 23 Anion Gap 18 H Blood Urea Nitrogen 71 #H Creatinine 9.17 #H Est Glomerular Filtrat 6 L Rate mL/min Glucose Level 114 Calcium Level 7.2 L Test 09/23/18 08:04 Bedside Glucose 111 Medications Medications Current Medications Heparin Sodium (Porcine) (Heparin (1000 Units/ml)) 4,000 unit AFTER DIALYSIS CATHETER Last administered on 09/21/18at 14:53; Admin Dose 4,000 UNIT; Start 09/19/18 at 07:30 Mannitol 50 ml @ 50 mls/5 min WITH DIALYSIS PRN IV DISEQUILIBRIUM SYNDROME PPX; Start 09/19/18 at 07:30 Albumin Human 100 ml @ 100 mls/hr WITH DIALYSIS PRN IV SBP <90 DURING DIALYSIS; Start 09/19/18 at 07:30 Sodium Chloride (NS) -To prime the dialy... DIRECTED FOR HD PRN IV HD; Start 09/19/18 at 07:30 Acetaminophen (Tylenol Tab) 650 mg Q6 PRN PO .MILD PAIN 1-3 OR TEMP; Start 09/19/18 at 10:30 Ondansetron HCl (Zofran Inj) 4 mg Q4 PRN IV NAUSEA/VOMITING Last administered on 09/22/18at 21:11; Admin Dose 4 MG; Start 09/19/18 at 10:30 Diagnostic Test (Pha) (Accu-Chek) 1 ea 02 XX Last administered on 09/23/18at 01:15; Admin Dose 1 EA; Start 09/20/18 at 02:00 Insulin Aspart (Novolog Insulin Pen) NOVOLOG *MILD* ALGORITHM WITH MEALS BEDTIME SC Last administered on 09/22/18at 17:21; Admin Dose 1 UNIT; Start 09/19/18 at 11:30 Miscellaneous Information 1 ea NOTE XX ; Start 09/19/18 at 11:00 Glucose (Glutose) 15 gm Q15M PRN PO DECREASED GLUCOSE; Start 09/19/18 at 11:00 Glucose (Glutose) 22.5 gm Q15M PRN PO DECREASED GLUCOSE; Start 09/19/18 at 11:00 Dextrose (D50w Syringe) 25 ml Q15M PRN IV DECREASED GLUCOSE; Start 09/19/18 at 11:00 Dextrose (D50w Syringe) 50 ml Q15M PRN IV DECREASED GLUCOSE; Start 09/19/18 at 11:00 Glucagon (Glucagen) 1 mg Q15M PRN IM DECREASED GLUCOSE; Start 09/19/18 at 11:00 Glucose (Glutose) 15 gm Q15M PRN BUCCAL DECREASED GLUCOSE; Start 09/19/18 at 11:00 Famotidine (Pepcid) 20 mg DAILY PO Last administered on 09/23/18 11:29; Admin Dose 20 MG; Start 09/19/18 at 13:00 Nifedipine (Procardia Xl) 60 mg BID PO Last administered on 09/23/18 11:27; Admin Dose 60 MG; Start 09/19/18 at 12:30 Sevelamer Carbonate (Renvela) 0.8 gm WITH MEALS PO Last administered on 09/23/18 08:06; Admin Dose 0.8 GM; Start 09/19/18 at 17:35 Tamsulosin HCl (Flomax) 0.4 mg DAILY PO Last administered on 09/23/18 11:29; Admin Dose 0.4 MG; Start 09/19/18 at 12:30 Miscellaneous Information 15 ml BID XX ; Start 09/19/18 at 12:30; Status UNV Minoxidil (Loniten) 5 mg BID PO Last administered on 09/23/18 11:28; Admin Dose 5 MG; Start 09/19/18 at 13:30 Nitroglycerin/ Dextrose 250 ml @ 1.5 mls/hr TITRATE IV Last administered on 09/23/18 09:10; Admin Dose 1.5 MLS/HR; Start 09/19/18 at 15:30 Metoclopramide HCl (Reglan) 5 mg Q6 IV Last administered on 09/23/18at 05:44; Admin Dose 5 MG; Start 09/20/18 at 00:00 Eye Lubricant (Artificial Tears Oph) 2 drop QID BOTH EYES Last administered on 09/23/18 11:29; Admin Dose 2 DROP; Start 09/20/18 at 20:00 Piperacillin Sod/ Tazobactam Sod 50 ml @ 100 mls/hr Q8 IVPB Last administered on 09/23/18 05:44; Admin Dose 100 MLS/HR; Start 09/21/18 at 18:00 Nitroglycerin (Nitroglycerin 0.2 Mg/Hr) 1 patch DAILY TRANSDERM Last administered on 09/23/18 11:27; Admin Dose 1 PATCH; Start 09/22/18 at 11:30 Metoprolol Tartrate (Lopressor) 25 mg BID PO Last administered on 09/23/18 11:28; Admin Dose 25 MG; Start 09/23/18 at 09:00 Clonidine (Catapres) 0.2 mg TID PO Last administered on 09/23/18 11:28; Admin Dose 0.2 MG; Start 09/23/18 at 09:00 NAHUN RUSSELL MD Sep 23, 2018 13:05
[2018-09-23] MEDS ORDERED: NITROGLYCERIN 50 MG/D5W (PMX) 250 ML IV SCH ×2 (16:21→17:30)
[2018-09-23] MEDS: LABETALOL 200 MG TAB PO SCH ×2 (17:59→20:46)
--- NOTE | 2018-09-23 18:07 | CONS ---
Assessment/Plan Assessment/Plan Assessment/Plan (Daily) Interval hx: BM yesterday soft. Denies nausea. C/O mild RUQ pain with positive Hartman's. LFTs wnl. Hgb stable. CBD measures 3.5mm wnl. 1. Abdominal pain with nausea and vomiting -resolved -gastritis v PUD v cholecystitis 2. Mild acute cholecystitis, resolved 3. RT lower lobe mass. Probably from pneumonia 4. Hypertension. Patient is on nitrite drip 5. Diabetes mellitus. 6. Coronary artery disease status post coronary artery bypass graft. 7. Legally blind. 8. 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 9. Hyperkalemia, for which he had emergent dialysis and was also medically ivan lorie. US of upper abd 09/19: 1. Diffuse gallbladder wall thickening and trace pericholecystic fluid, a ppearance may indicate acute cholecystitis, reactive inflammation or edema. 2. No gallstones identified. 3. Mildly atrophic right kidney, echogenic appearance consistent with chronic medical renal disease. PLAN: HIDA negative for cholecystitis. Continue with PPI and Reglan Consultation Date/Type/Reason Admit Date/Time Sep 19, 2018 at 06:33 Initial Consult Date 09/21/18 Requesting Provider: COREY SARAVIA Date/Time of Note DATE: 09/23/18 TIME: 18:06 24 HR Interval Summary Free Text/Dictation No abdominal pain no nausea no vomiting no chest pain or shortness of breath Constitutional: no complaints, improved Exam/Review of Systems Exam Vitals Vital Signs Date Temp Pulse Resp B/P (MAP) Pulse Ox O2 O2 Flow FiO2 Time Delivery Rate 09/23/18 59 16:45 09/23/18 12 139/74 96 16:30 (95) 09/23/18 98.2 Room Air 16:00 Intake and Output 09/22/18 09/22/18 09/23/18 1515:00 23:00 07:00 IntakeIntake Total 86 ml 159 ml 181.5 ml OutputOutput Total 0 ml 0 ml 20 ml BalanceBalance 86 ml 159 ml 161.5 ml Constitutional: alert, oriented, well developed Psych: no complaints, nl mood/affect Head: normocephalic, atraumatic Eyes: nl conjunctiva, EOMI, nl lids, nl sclera, PERRL ENMT: nl external ears & nose, nl lips & teeth, nl nasal mucosa & septum Neck: supple, non-tender Respiratory: clear to auscultation, normal air movement Cardiovascular: regular rate and rhythm, nl pulses Gastrointestinal: soft, nl liver, spleen, non-tender Musculoskeletal: nl extremities to inspection, nl gait and stance Extremities: normal pulses 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, nl mental status, nl speech, nl strength Skin: nl turgor; No rash or lesions Lymph: nl lymph nodes Results Result Diagram: 09/23/18 0419 09/23/189 Results 24hrs Laboratory Tests Test 09/22/18 21:09 09/23/18 01:17 09/23/18 04:19 09/23/18 08:04 Bedside Glucose 104 151 111 White Blood Count 4.3 #L Red Blood Count 3.85 L Hemoglobin 11.5 L Hematocrit 35.0 L Mean Corpuscular Volume 90.9 Mean Corpuscular 29.9 Hemoglobin Mean Corpuscular 32.9 Hemoglobin Concent Red Cell Distribution 12.9 Width Platelet Count 90 L Mean Platelet Volume 10.9 H Immature Granulocytes % 0.200 Neutrophils % 50.9 Lymphocytes % 19.8 Monocytes % 9.2 Eosinophils % 19.4 H Basophils % 0.5 Nucleated Red Blood 0.0 Cells % Immature Granulocytes # 0.010 Neutrophils # 2.2 Lymphocytes # 0.9 Monocytes # 0.4 Eosinophils # 0.8 H Basophils # 0.0 Nucleated Red Blood 0.0 Cells # Sodium Level 135 Potassium Level 5.4 H Chloride Level 94 L Carbon Dioxide Level 23 Anion Gap 18 H Blood Urea Nitrogen 71 #H Creatinine 9.17 #H Est Glomerular Filtrat 6 L Rate mL/min Glucose Level 114 Calcium Level 7.2 L Test 09/23/18 13:20 Bedside Glucose 122 Medications Medication Current Medications Heparin Sodium (Porcine) (Heparin (1000 Units/ml)) 4,000 unit AFTER DIALYSIS CATHETER Last administered on 09/21/18at 14:53; Admin Dose 4,000 UNIT; Start 09/19/18 at 07:30 Mannitol 50 ml @ 50 mls/5 min WITH DIALYSIS PRN IV DISEQUILIBRIUM SYNDROME PPX; Start 09/19/18 at 07:30 Albumin Human 100 ml @ 100 mls/hr WITH DIALYSIS PRN IV SBP <90 DURING DIALYSIS; Start 09/19/18 at 07:30 Sodium Chloride (NS) -To prime the dialy... DIRECTED FOR HD PRN IV HD; Start 09/19/18 at 07:30 Acetaminophen (Tylenol Tab) 650 mg Q6 PRN PO .MILD PAIN 1-3 OR TEMP; Start 09/19/18 at 10:30 Ondansetron HCl (Zofran Inj) 4 mg Q4 PRN IV NAUSEA/VOMITING Last administered on 09/22/18at 21:11; Admin Dose 4 MG; Start 09/19/18 at 10:30 Diagnostic Test (Pha) (Accu-Chek) 1 ea 02 XX Last administered on 09/23/18 01:15; Admin Dose 1 EA; Start 09/20/18 at 02:00 Insulin Aspart (Novolog Insulin Pen) NOVOLOG *MILD* ALGORITHM WITH MEALS BEDTIME SC Last administered on 09/22/18 17:21; Admin Dose 1 UNIT; Start 09/19/18 at 11:30 Miscellaneous Information 1 ea NOTE XX ; Start 09/19/18 at 11:00 Glucose (Glutose) 15 gm Q15M PRN PO DECREASED GLUCOSE; Start 09/19/18 at 11:00 Glucose (Glutose) 22.5 gm Q15M PRN PO DECREASED GLUCOSE; Start 09/19/18 at 11:00 Dextrose (D50w Syringe) 25 ml Q15M PRN IV DECREASED GLUCOSE; Start 09/19/18 at 11:00 Dextrose (D50w Syringe) 50 ml Q15M PRN IV DECREASED GLUCOSE; Start 09/19/18 at 11:00 Glucagon (Glucagen) 1 mg Q15M PRN IM DECREASED GLUCOSE; Start 09/19/18 at 11:00 Glucose (Glutose) 15 gm Q15M PRN BUCCAL DECREASED GLUCOSE; Start 09/19/18 at 11:00 Famotidine (Pepcid) 20 mg DAILY PO Last administered on 09/23/18 11:29; Admin Dose 20 MG; Start 09/19/18 at 13:00 Nifedipine (Procardia Xl) 60 mg BID PO Last administered on 09/23/18 11:27; Admin Dose 60 MG; Start 09/19/18 at 12:30 Sevelamer Carbonate (Renvela) 0.8 gm WITH MEALS PO Last administered on 09/23/18 13:31; Admin Dose 0.8 GM; Start 09/19/18 at 17:35 Tamsulosin HCl (Flomax) 0.4 mg DAILY PO Last administered on 09/23/18 11:29; Admin Dose 0.4 MG; Start 09/19/18 at 12:30 Miscellaneous Information 15 ml BID XX ; Start 09/19/18 at 12:30; Status UNV Minoxidil (Loniten) 5 mg BID PO Last administered on 09/23/18 11:28; Admin Dose 5 MG; Start 09/19/18 at 13:30 Metoclopramide HCl (Reglan) 5 mg Q6 IV Last administered on 09/23/18 17:28; Admin Dose 5 MG; Start 09/20/18 at 00:00 Eye Lubricant (Artificial Tears Oph) 2 drop QID BOTH EYES Last administered on 09/23/18 17:28; Admin Dose 2 DROP; Start 09/20/18 at 20:00 Piperacillin Sod/ Tazobactam Sod 50 ml @ 100 mls/hr Q8 IVPB Last administered on 09/23/18 05:44; Admin Dose 100 MLS/HR; Start 09/21/18 at 18:00 Nitroglycerin (Nitroglycerin 0.2 Mg/Hr) 1 patch DAILY TRANSDERM Last administered on 09/23/18 11:27; Admin Dose 1 PATCH; Start 09/22/18 at 11:30 Clonidine (Catapres) 0.2 mg TID PO Last administered on 09/23/18 11:28; Admin Dose 0.2 MG; Start 09/23/18 at 09:00 Labetalol HCl (Normodyne) 400 mg BID PO ; Start 09/23/18 at 13:30 Clonidine (Catapres) 0.1 mg Q4H PRN NGT SBP > 170; Start 09/23/18 at 13:30 Guaifenesin/ Dextromethorphan (Robitussin Dm Liquid Cup) 10 ml Q6 PRN PO COUGH; Start 09/23/18 at 13:30 Nitroglycerin/ Dextrose 250 ml @ 1.5 mls/hr TITRATE IV ; Start 09/23/18 at 17:30 MIGUELINA HALL MD Sep 23, 2018 18:07
[2018-09-23] MEDS: HEPARIN 1000 UNITS/ML 10 ML INJ CATHETER SCH (18:30)
[2018-09-23] MEDS: GUAIFENESIN/DM 5ML CUP PO PRN (20:45)
[2018-09-23] MEDS: ATROPINE SULFATE 1% LEFT EYE SCH (21:43)
[2018-09-24] VITALS (24 sets, daily range): BP systolic 84–126; BP diastolic 42–73; PULSE 59–81; RESP 11–21
[2018-09-24] MEDS: METOCLOPRAMIDE 10 MG INJ IV SCH ×4 (00:55→17:00)
[2018-09-24] MEDS: ACCU-CHEK XX SCH (01:19)
[2018-09-24] MEDS: PIPER-TAZO 2.25 GM (PMX) 50 ML IVPB SCH ×3 (05:56→23:41)
[2018-09-24] MEDS: INSULIN ASPART [NOVOLOG] 3 ML PEN SC SCH ×4 (07:35→21:00)
[2018-09-24] MEDS: SEVELAMER CARBONATE 0.8 GM PKT PO SCH ×3 (09:05→17:48)
[2018-09-24] MEDS: ARTIFICIAL TEARS 15 ML OPH BOTH EYES SCH ×4 (09:06→21:43)
[2018-09-24] MEDS: ATROPINE SULFATE 1% LEFT EYE SCH ×2 (09:06→21:44)
[2018-09-24] MEDS: TAMSULOSIN (SR) 0.4 MG CAP PO SCH (09:06)
[2018-09-24] MEDS: NITROGLYCERIN 0.2 MG/HR PATCH TRANSDERM SCH (09:07)
[2018-09-24] MEDS: LABETALOL 200 MG TAB PO SCH ×2 (09:07→21:00)
[2018-09-24] MEDS: FAMOTIDINE 20 MG TAB PO SCH (09:07)
[2018-09-24] MEDS: MINOXIDIL 2.5 MG TAB PO SCH ×2 (09:07→21:00)
[2018-09-24] MEDS: NIFEdipine (XL) 60 MG TAB PO SCH ×2 (09:08→21:00)
--- NOTE | 2018-09-24 11:13 | CONS ---
Assessment/Plan Assessment/Plan Assessment/Plan (Daily) Assessment/Plan (Daily) Interval hx: BM yesterday soft. Denies nausea. C/O mild RUQ pain with pos itive Hartman's. LFTs wnl. Hgb stable. CBD measures 3.5mm wnl. 1. Abdominal pain with nausea and vomiting -resolved -gastritis v PUD v cholecystitis 2. Mild acute cholecystitis, resolved 3. RT lower lobe mass. Probably from pneumonia 4. Hypertension. Patient is on nitrite drip. Blood pressures is now under well controlled 5. Diabetes mellitus. 6. Coronary artery disease status post coronary artery bypass graft. 7. Legally blind. 8. 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 9. Hyperkalemia, for which he had emergent dialysis and was also medically treated. US of upper abd 09/19: 1. Diffuse gallbladder wall thickening and trace pericholecystic fluid, appearance may indicate acute cholecystitis, reactive inflammation or edema. 2. No gallstones identified. 3. Mildly atrophic right kidney, echogenic appearance consistent with chronic medical renal disease. PLAN: HIDA negative for cholecystitis. Continue with PPI and Reglan Consultation Date/Type/Reason Admit Date/Time Sep 19, 2018 at 06:33 Initial Consult Date 09/21/18 Requesting Provider: COREY SARAVIA Date/Time of Note DATE: 09/24/18 TIME: 11:13 24 HR Interval Summary Constitutional: no complaints, improved Exam/Review of Systems Exam Vitals Vital Signs Date Temp Pulse Resp B/P (MAP) Pulse Ox O2 O2 Flow FiO2 Time Delivery Rate 09/24/18 61 08:00 09/24/18 15 120/60 100 Room Air 06:00 (80) 09/24/18 98.0 04:00 Intake and Output 09/23/18 09/23/18 09/24/18 1515:00 23:00 07:00 IntakeIntake Total 437.0 ml 858.5 ml 50 ml OutputOutput Total 3500 ml BalanceBalance 437.0 ml -2641.5 ml 50 ml Constitutional: alert, oriented, well developed Psych: no complaints, nl mood/affect Head: normocephalic, atraumatic Eyes: nl conjunctiva, EOMI, nl lids, nl sclera, PERRL ENMT: nl external ears & nose, nl lips & teeth, nl nasal mucosa & septum Neck: supple, non-tender Respiratory: clear to auscultation, normal air movement Cardiovascular: regular rate and rhythm, nl pulses Gastrointestinal: soft, nl liver, spleen, non-tender Musculoskeletal: nl extremities to inspection, nl gait and stance Extremities: normal pulses 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: FRAME OPERATOR II-XII intact, nl mental status, nl speech, nl strength Skin: nl turgor; No rash or lesions Lymph: nl lymph nodes Results Result Diagram: 09/24/18 0430 09/24/18 0430 Results 24hrs Laboratory Tests Test 09/23/18 13:20 09/23/18 18:35 09/23/18 20:44 09/24/18 00:56 Bedside Glucose 122 125 149 109 Test 09/24/18 04:30 09/24/18 08:47 White Blood Count 3.1 #L Red Blood Count 3.74 L Hemoglobin 11.2 L Hematocrit 33.8 L Mean Corpuscular Volume 90.4 Mean Corpuscular 29.9 Hemoglobin Mean Corpuscular 33.1 Hemoglobin Concent Red Cell Distribution 13.2 Width Platelet Count 118 #L Mean Platelet Volume 10.7 H Immature Granulocytes % 0.300 Neutrophils % 44.1 Lymphocytes % 23.8 Monocytes % 10.9 Eosinophils % 20.3 H Basophils % 0.6 Nucleated Red Blood 0.0 Cells % Immature Granulocytes # 0.010 Neutrophils # 1.4 L Lymphocytes # 0.7 L Monocytes # 0.3 Eosinophils # 0.6 H Basophils # 0.0 Nucleated Red Blood 0.0 Cells # Sodium Level 135 Potassium Level 5.9 H Chloride Level 95 L Carbon Dioxide Level 25 Anion Gap 15 H Blood Urea Nitrogen 42 #H Creatinine 7.42 H Est Glomerular Filtrat 8 L Rate mL/min Glucose Level 94 Calcium Level 8.6 Total Bilirubin 0.1 L Direct Bilirubin 0.00 Indirect Bilirubin 0.1 Aspartate Amino 19 Transf (AST/SGOT) Alanine 15 Aminotransferase (ALT/SG PT) Alkaline Phosphatase 52 Total Protein 7.7 Albumin 4.3 Globulin 3.40 H Albumin/Globulin Ratio 1.26 Bedside Glucose 91 Medications Medication Current Medications Heparin Sodium (Porcine) (Heparin (1000 Units/ml)) 4,000 unit AFTER DIALYSIS C ATHETER Last administered on 09/23/18at 18:30; Admin Dose 4,000 UNIT; Start 09/19/18 at 07:30 Mannitol 50 ml @ 50 mls/5 min WITH DIALYSIS PRN IV DISEQUILIBRIUM SYNDROME PPX; Start 09/19/18 at 07:30 Albumin Human 100 ml @ 100 mls/hr WITH DIALYSIS PRN IV SBP <90 DURING DIALYSIS; Start 09/19/18 at 07:30 Sodium Chloride (NS) -To prime the dialy... DIRECTED FOR HD PRN IV HD; Start 09/19/18 at 07:30 Acetaminophen (Tylenol Tab) 650 mg Q6 PRN PO .MILD PAIN 1-3 OR TEMP; Start 09/19/18 at 10:30 Ondansetron HCl (Zofran Inj) 4 mg Q4 PRN IV NAUSEA/VOMITING Last administered on 09/22/18at 21:11; Admin Dose 4 MG; Start 09/19/18 at 10:30 Diagnostic Test (Pha) (Accu-Chek) 1 ea 02 XX Last administered on 09/24/18at 01:19; Admin Dose 1 EA; Start 09/20/18 at 02:00 Insulin Aspart (Novolog Insulin Pen) NOVOLOG *MILD* ALGORITHM WITH MEALS BEDTIME SC Last administered on 09/22/18at 17:21; Admin Dose 1 UNIT; Start 09/19/18 at 11:30 Miscellaneous Information 1 ea NOTE XX ; Start 09/19/18 at 11:00 Glucose (Glutose) 15 gm Q15M PRN PO DECREASED GLUCOSE; Start 09/19/18 at 11:00 Glucose (Glutose) 22.5 gm Q15M PRN PO DECREASED GLUCOSE; Start 09/19/18 at 11:00 Dextrose (D50w Syringe) 25 ml Q15M PRN IV DECREASED GLUCOSE; Start 09/19/18 at 11:00 Dextrose (D50w Syringe) 50 ml Q15M PRN IV DECREASED GLUCOSE; Start 09/19/18 at 11:00 Glucagon (Glucagen) 1 mg Q15M PRN IM DECREASED GLUCOSE; Start 09/19/18 at 11:00 Glucose (Glutose) 15 gm Q15M PRN BUCCAL DECREASED GLUCOSE; Start 09/19/18 at 11:00 Famotidine (Pepcid) 20 mg DAILY PO Last administered on 09/24/18at 09:07; Admin Dose 20 MG; Start 09/19/18 at 13:00 Nifedipine (Procardia Xl) 60 mg BID PO Last administered on 09/24/18 09:08; Admin Dose 60 MG; Start 09/19/18 at 12:30 Sevelamer Carbonate (Renvela) 0.8 gm WITH MEALS PO Last administered on 09/24/18 09:05; Admin Dose 0.8 GM; Start 09/19/18 at 17:35 Tamsulosin HCl (Flomax) 0.4 mg DAILY PO Last administered on 09/24/18 09:06; Admin Dose 0.4 MG; Start 09/19/18 at 12:30 Minoxidil (Loniten) 5 mg BID PO Last administered on 09/24/18 09:07; Admin Dose 5 MG; Start 09/19/18 at 13:30 Metoclopramide HCl (Reglan) 5 mg Q6 IV Last administered on 09/24/18 05:56; Admin Dose 5 MG; Start 09/20/18 at 00:00 Eye Lubricant (Artificial Tears Oph) 2 drop QID BOTH EYES Last administered on 09/24/18 09:06; Admin Dose 2 DROP; Start 09/20/18 at 20:00 Piperacillin Sod/ Tazobactam Sod 50 ml @ 100 mls/hr Q8 IVPB Last administered on 09/24/18 05:56; Admin Dose 100 MLS/HR; Start 09/21/18 at 18:00 Nitroglycerin (Nitroglycerin 0.2 Mg/Hr) 1 patch DAILY TRANSDERM Last administered on 09/24/18 09:07; Admin Dose 1 PATCH; Start 09/22/18 at 11:30 Clonidine (Catapres) 0.2 mg TID PO Last administered on 09/24/18 09:06; Admin Dose 0.2 MG; Start 09/23/18 at 09:00 Labetalol HCl (Normodyne) 400 mg BID PO Last administered on 09/24/18 09:07; Admin Dose 400 MG; Start 09/23/18 at 13:30 Clonidine (Catapres) 0.1 mg Q4H PRN NGT SBP > 170; Start 09/23/18 at 13:30 Guaifenesin/ Dextromethorphan (Robitussin Dm Liquid Cup) 10 ml Q6 PRN PO COUGH Last administered on 09/23/18 20:45; Admin Dose 10 ML; Start 09/23/18 at 13:30 Nitroglycerin/ Dextrose 250 ml @ 1.5 mls/hr TITRATE IV ; Start 09/23/18 at 17:30 Patient Own Medication 1 ea BID LEFT EYE Last administered on 09/24/18at 09:06; Admin Dose 1 EA; Start 09/23/18 at 21:00 MIGUELINA HALL MD Sep 24, 2018 11:13
--- NOTE | 2018-09-24 11:43 | PN ---
Date/Time of Note Date/Time of Note DATE: 09/24/18 TIME: 11:42 Assessment/Plan VTE Prophylaxis Risk score (from Ns)>0 risk: 3 SCD applied (from [facility] [place]): No SCD contraindicated: other Pharmacological prophylaxis: LMWH Lines/Catheters IV [facility] Type ([facility] PERMACATH Urinary Cath still in place: No Assessment/Plan Hospital Course - Hypertensive emergency, continue nitroglycerin drip patient is currently on minoxidil Procardia and clonidine. - Hyperkalemia, resolved s/p emergent hemodialysis, Dr. Ortez is following in nephrology consultation. - Abdominal pain most likely secondary to gastritis versus PUD, abdominal ultrasound notable for distended gallbladder with marked wall thickening. Continue PPI and Reglan. Dr. Winkler is following in GI consultation. - Possible cholecystitis, continue Zosyn - LLL mass decreased with pleural consolidation increased in volume per recent CT. Dr Mueller is following in pulmonology consultation. - HTN - DM - CAD, Hx of CABG - ESRD on HD - Legal blindness. No acute issue. - MRSA of nares colonization Result Diagram: 09/24/18 0430 09/24/18 0430 Results 24hrs Laboratory Tests Test 09/23/18 13:20 09/23/18 18:35 09/23/18 20:44 09/24/18 00:56 Bedside Glucose 122 125 149 109 Test 09/24/18 04:30 09/24/18 08:47 White Blood Count 3.1 #L Red Blood Count 3.74 L Hemoglobin 11.2 L Hematocrit 33.8 L Mean Corpuscular Volume 90.4 Mean Corpuscular 29.9 Hemoglobin Mean Corpuscular 33.1 Hemoglobin Concent Red Cell Distribution 13.2 Width Platelet Count 118 #L Mean Platelet Volume 10.7 H Immature Granulocytes % 0.300 Neutrophils % 44.1 Lymphocytes % 23.8 Monocytes % 10.9 Eosinophils % 20.3 H Basophils % 0.6 Nucleated Red Blood 0.0 Cells % Immature Granulocytes # 0.010 Neutrophils # 1.4 L Lymphocytes # 0.7 L Monocytes # 0.3 Eosinophils # 0.6 H Basophils # 0.0 Nucleated Red Blood 0.0 Cells # Sodium Level 135 Potassium Level 5.9 H Chloride Level 95 L Carbon Dioxide Level 25 Anion Gap 15 H Blood Urea Nitrogen 42 #H Creatinine 7.42 H Est Glomerular Filtrat 8 L Rate mL/min Glucose Level 94 Calcium Level 8.6 Total Bilirubin 0.1 L Direct Bilirubin 0.00 Indirect Bilirubin 0.1 Aspartate Amino 19 Transf (AST/SGOT) Alanine 15 Aminotransferase (ALT/SG PT) Alkaline Phosphatase 52 Total Protein 7.7 Albumin 4.3 Globulin 3.40 H Albumin/Globulin Ratio 1.26 Bedside Glucose 91 Subjective 24 Hr Interval Summary Free Text/Dictation Patient is sedated and intubated Exam/Review of Systems Exam Vitals Vital Signs Date Temp Pulse Resp B/P (MAP) Pulse Ox O2 O2 Flow FiO2 Time Delivery Rate 09/24/18 63 16 114/53 96 Room Air 10:00 (73) 09/24/18 97.8 08:00 Intake and Output 09/23/18 09/23/18 09/24/18 1515:00 23:00 07:00 IntakeIntake Total 437.0 ml 858.5 ml 50 ml OutputOutput Total 3500 ml BalanceBalance 437.0 ml -2641.5 ml 50 ml Constitutional: well developed Head: normocephalic, atraumatic Neck: supple Respiratory: diminished breath sounds Cardiovascular: regular rate and rhythm Gastrointestinal: soft, non-tender Extremities: normal pulses Results Results 24hrs Laboratory Tests Test 09/23/18 13:20 09/23/18 18:35 09/23/18 20:44 09/24/18 00:56 Bedside Glucose 122 125 149 109 Test 09/24/18 04:30 09/24/18 08:47 White Blood Count 3.1 #L Red Blood Count 3.74 L Hemoglobin 11.2 L Hematocrit 33.8 L Mean Corpuscular Volume 90.4 Mean Corpuscular 29.9 Hemoglobin Mean Corpuscular 33.1 Hemoglobin Concent Red Cell Distribution 13.2 Width Platelet Count 118 #L Mean Platelet Volume 10.7 H Immature Granulocytes % 0.300 Neutrophils % 44.1 Lymphocytes % 23.8 Monocytes % 10.9 Eosinophils % 20.3 H Basophils % 0.6 Nucleated Red Blood 0.0 Cells % Immature Granulocytes # 0.010 Neutrophils # 1.4 L Lymphocytes # 0.7 L Monocytes # 0.3 Eosinophils # 0.6 H Basophils # 0.0 Nucleated Red Blood 0.0 Cells # Sodium Level 135 Potassium Level 5.9 H Chloride Level 95 L Carbon Dioxide Level 25 Anion Gap 15 H Blood Urea Nitrogen 42 #H Creatinine 7.42 H Est Glomerular Filtrat 8 L Rate mL/min Glucose Level 94 Calcium Level 8.6 Total Bilirubin 0.1 L Direct Bilirubin 0.00 Indirect Bilirubin 0.1 Aspartate Amino 19 Transf (AST/SGOT) Alanine 15 Aminotransferase (ALT/SG PT) Alkaline Phosphatase 52 Total Protein 7.7 Albumin 4.3 Globulin 3.40 H Albumin/Globulin Ratio 1.26 Bedside Glucose 91 Medications Medication Current Medications Heparin Sodium (Porcine) (Heparin (1000 Units/ml)) 4,000 unit AFTER DIALYSIS CATHETER Last administered on 09/23/18at 18:30; Admin Dose 4,000 UNIT; Start 09/19/18 at 07:30 Mannitol 50 ml @ 50 mls/5 min WITH DIALYSIS PRN IV DISEQUILIBRIUM SYNDROME PPX; Start 09/19/18 at 07:30 Albumin Human 100 ml @ 100 mls/hr WITH DIALYSIS PRN IV SBP <90 DURING DIALYSIS; Start 09/19/18 at 07:30 Sodium Chloride (NS) -To prime the dialy... DIRECTED FOR HD PRN IV HD; Start 09/19/18 at 07:30 Acetaminophen (Tylenol Tab) 650 mg Q6 PRN PO .MILD PAIN 1-3 OR TEMP; Start 09/19/18 at 10:30 Ondansetron HCl (Zofran Inj) 4 mg Q4 PRN IV NAUSEA/VOMITING Last administered on 09/22/18at 21:11; Admin Dose 4 MG; Start 09/19/18 at 10:30 Diagnostic Test (Pha) (Accu-Chek) 1 ea 02 XX Last administered on 09/24/18at 01:19; Admin Dose 1 EA; Start 09/20/18 at 02:00 Insulin Aspart (Novolog Insulin Pen) NOVOLOG *MILD* ALGORITHM WITH MEALS BEDTIM E SC Last administered on 09/22/18at 17:21; Admin Dose 1 UNIT; Start 09/19/18 at 11:30 Miscellaneous Information 1 ea NOTE XX ; Start 09/19/18 at 11:00 Glucose (Glutose) 15 gm Q15M PRN PO DECREASED GLUCOSE; Start 09/19/18 at 11:00 Glucose (Glutose) 22.5 gm Q15M PRN PO DECREASED GLUCOSE; Start 09/19/18 at 11:00 Dextrose (D50w Syringe) 25 ml Q15M PRN IV DECREASED GLUCOSE; Start 09/19/18 at 11:00 Dextrose (D50w Syringe) 50 ml Q15M PRN IV DECREASED GLUCOSE; Start 09/19/18 at 11:00 Glucagon (Glucagen) 1 mg Q15M PRN IM DECREASED GLUCOSE; Start 09/19/18 at 11:00 Glucose (Glutose) 15 gm Q15M PRN BUCCAL DECREASED GLUCOSE; Start 09/19/18 at 11:00 Famotidine (Pepcid) 20 mg DAILY PO Last administered on 09/24/18 09:07; Admin Dose 20 MG; Start 09/19/18 at 13:00 Nifedipine (Procardia Xl) 60 mg BID PO Last administered on 09/24/18 09:08; Admin Dose 60 MG; Start 09/19/18 at 12:30 Sevelamer Carbonate (Renvela) 0.8 gm WITH MEALS PO Last administered on 09/24/18 09:05; Admin Dose 0.8 GM; Start 09/19/18 at 17:35 Tamsulosin HCl (Flomax) 0.4 mg DAILY PO Last administered on 09/24/18 09:06; Admin Dose 0.4 MG; Start 09/19/18 at 12:30 Minoxidil (Loniten) 5 mg BID PO Last administered on 09/24/18 09:07; Admin Dose 5 MG; Start 09/19/18 at 13:30 Metoclopramide HCl (Reglan) 5 mg Q6 IV Last administered on 09/24/18 05:56; Admin Dose 5 MG; Start 09/20/18 at 00:00 Eye Lubricant (Artificial Tears Oph) 2 drop QID BOTH EYES Last administered on 09/24/18 09:06; Admin Dose 2 DROP; Start 09/20/18 at 20:00 Piperacillin Sod/ Tazobactam Sod 50 ml @ 100 mls/hr Q8 IVPB Last administered on 09/24/18 05:56; Admin Dose 100 MLS/HR; Start 09/21/18 at 18:00 Nitroglycerin (Nitroglycerin 0.2 Mg/Hr) 1 patch DAILY TRANSDERM Last administered on 09/24/18 09:07; Admin Dose 1 PATCH; Start 09/22/18 at 11:30 Clonidine (Catapres) 0.2 mg TID PO Last administered on 09/24/18 09:06; Admin Dose 0.2 MG; Start 09/23/18 at 09:00 Labetalol HCl (Normodyne) 400 mg BID PO Last administered on 09/24/18 09:07; Admin Dose 400 MG; Start 09/23/18 at 13:30 Clonidine (Catapres) 0.1 mg Q4H PRN NGT SBP > 170; Start 09/23/18 at 13:30 Guaifenesin/ Dextromethorphan (Robitussin Dm Liquid Cup) 10 ml Q6 PRN PO COUGH Last administered on 09/23/18at 20:45; Admin Dose 10 ML; Start 09/23/18 at 13:30 Patient Own Medication 1 ea BID LEFT EYE Last administered on 09/24/18 09:06; Admin Dose 1 EA; Start 09/23/18 at 21:00 KELSI FELICIANO Sep 24, 2018 11:43
[2018-09-24] MEDS: GUAIFENESIN/DM 5ML CUP PO PRN (12:30)
--- NOTE | 2018-09-24 13:11 | CONS ---
Assessment/Plan Assessment/Plan Assessment/Plan (Daily) 1. acute hyperkalemia -5.9 today - Kayexalate 30 gm po x1 today - fu BMP am 2. Hypertensive emergency on NTG drip 3. ESRD on HD MWF with acute hyperklaemia and acute fluid overload 4. Possible Cholecysitits 5. H/o CAD s/p CABG 6. H/O HTN 7. H/o HL 8. H/o DM II Plan: s/p HD yesterday 3 L removed, -will keep pt on MWF schedule Nifedipine 60mg pO BID with Minoxidil 5 mg BID, clonidine prn IV hydralazine pnr IV abx zosyn to cover for infeciton/cholecystitis, GI consulted on the case Critical care time spent is 30 minutes.Patient seen in collaboration with Dr Ortez. Dw staff Consultation Date/Type/Reason Admit Date/Time Sep 19, 2018 at 06:33 Initial Consult Date 09/23/18 Type of Consult NEPHROLOGY Requesting Provider: COREY SARAVIA Date/Time of Note DATE: 09/24/18 TIME: 13:06 24 HR Interval Summary Free Text/Dictation Seen in ICU denies any complaints BP stable no new issues reported overnight dw staff Detailed Summary Eyes: other (Blind) ENT: no complaints Respiratory: no complaints Cardiovascular: no complaints Gastrointestinal: no complaints Genitourinary: no complaints Musculoskeletal: no complaints Skin: no complaints Neurologic: no complaints Endocrine: no complaints Lymphatic: no complaints Psychological: nl mood/affect Immunologic: no complaints Exam/Review of Systems Exam Vitals Vital Signs Date Temp Pulse Resp B/P (MAP) Pulse Ox O2 O2 Flow FiO2 Time Delivery Rate 09/24/18 63 16 114/53 96 Room Air 10:00 (73) 09/24/18 97.8 08:00 Intake and Output 09/23/18 09/23/18 09/24/18 1414:59 22:59 06:59 IntakeIntake Total 473.5 ml 903.5 ml 50 ml OutputOutput Total 3500 ml BalanceBalance 473.5 ml -2596.5 ml 50 ml Constitutional: alert, well developed Psych: nl mood/affect Head: normocephalic Eyes: nl lids, other (blinds) ENMT: nl external ears & nose Neck: non-tender Respiratory: clear to auscultation Cardiovascular: nl pulses, other (s1s2) Gastrointestinal: soft, non-tender Musculoskeletal: nl extremities to inspection Extremities: normal pulses 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: nl speech Results Result Diagram: 09/24/18 0430 09/24/18 0430 Results 24hrs Laboratory Tests Test 09/23/18 13:20 09/23/18 18:35 09/23/18 20:44 09/24/18 00:56 Bedside Glucose 122 125 149 109 Test 09/24/18 04:30 09/24/18 08:47 09/24/18 12:14 White Blood Count 3.1 #L Red Blood Count 3.74 L Hemoglobin 11.2 L Hematocrit 33.8 L Mean Corpuscular Volume 90.4 Mean Corpuscular 29.9 Hemoglobin Mean Corpuscular 33.1 Hemoglobin Concent Red Cell Distribution 13.2 Width Platelet Count 118 #L Mean Platelet Volume 10.7 H Immature Granulocytes % 0.300 Neutrophils % 44.1 Lymphocytes % 23.8 Monocytes % 10.9 Eosinophils % 20.3 H Basophils % 0.6 Nucleated Red Blood 0.0 Cells % Immature Granulocytes # 0.010 Neutrophils # 1.4 L Lymphocytes # 0.7 L Monocytes # 0.3 Eosinophils # 0.6 H Basophils # 0.0 Nucleated Red Blood 0.0 Cells # Sodium Level 135 Potassium Level 5.9 H Chloride Level 95 L Carbon Dioxide Level 25 Anion Gap 15 H Blood Urea Nitrogen 42 #H Creatinine 7.42 H Est Glomerular Filtrat 8 L Rate mL/min Glucose Level 94 Calcium Level 8.6 Total Bilirubin 0.1 L Direct Bilirubin 0.00 Indirect Bilirubin 0.1 Aspartate Amino 19 Transf (AST/SGOT) Alanine 15 Aminotransferase (ALT/SG PT) Alkaline Phosphatase 52 Total Protein 7.7 Albumin 4.3 Globulin 3.40 H Albumin/Globulin Ratio 1.26 Bedside Glucose 91 125 Medications Medication Current Medications Heparin Sodium (Porcine) (Heparin (1000 Units/ml)) 4,000 unit AFTER DIALYSIS CATHETER Last administered on 09/23/18at 18:30; Admin Dose 4,000 UNIT; Start 09/19/18 at 07:30 Mannitol 50 ml @ 50 mls/5 min WITH DIALYSIS PRN IV DISEQUILIBRIUM SYNDROME PPX; Start 09/19/18 at 07:30 Albumin Human 100 ml @ 100 mls/hr WITH DIALYSIS PRN IV SBP <90 DURING DIALYSIS; Start 09/19/18 at 07:30 Sodium Chloride (NS) -To prime the dialy... DIRECTED FOR HD PRN IV HD; Start 09/19/18 at 07:30 Acetaminophen (Tylenol Tab) 650 mg Q6 PRN PO .MILD PAIN 1-3 OR TEMP; Start 09/19/18 at 10:30 Ondansetron HCl (Zofran Inj) 4 mg Q4 PRN IV NAUSEA/VOMITING Last administered on 09/22/18at 21:11; Admin Dose 4 MG; Start 09/19/18 at 10:30 Diagnostic Test (Pha) (Accu-Chek) 1 ea 02 XX Last administered on 09/24/18at 01:19; Admin Dose 1 EA; Start 09/20/18 at 02:00 Insulin Aspart (Novolog Insulin Pen) NOVOLOG *MILD* ALGORITHM WITH MEALS BEDTIME SC Last administered on 09/22/18at 17:21; Admin Dose 1 UNIT; Start 09/19/18 at 11:30 Miscellaneous Information 1 ea NOTE XX ; Start 09/19/18 at 11:00 Glucose (Glutose) 15 gm Q15M PRN PO DECREASED GLUCOSE; Start 09/19/18 at 11:00 Glucose (Glutose) 22.5 gm Q15M PRN PO DECREASED GLUCOSE; Start 09/19/18 at 11:00 Dextrose (D50w Syringe) 25 ml Q15M PRN IV DECREASED GLUCOSE; Start 09/19/18 at 11:00 Dextrose (D50w Syringe) 50 ml Q15M PRN IV DECREASED GLUCOSE; Start 09/19/18 at 11:00 Glucagon (Glucagen) 1 mg Q15M PRN IM DECREASED GLUCOSE; Start 09/19/18 at 11:00 Glucose (Glutose) 15 gm Q15M PRN BUCCAL DECREASED GLUCOSE; Start 09/19/18 at 11:00 Famotidine (Pepcid) 20 mg DAILY PO Last administered on 09/24/18at 09:07; Admin Dose 20 MG; Start 09/19/18 at 13:00 Nifedipine (Procardia Xl) 60 mg BID PO Last administered on 09/24/18at 09:08; Admin Dose 60 MG; Start 09/19/18 at 12:30 Sevelamer Carbonate (Renvela) 0.8 gm WITH MEALS PO Last administered on 09/24/18at 12:16; Admin Dose 0.8 GM; Start 09/19/18 at 17:35 Tamsulosin HCl (Flomax) 0.4 mg DAILY PO Last administered on 09/24/18 09:06; Admin Dose 0.4 MG; Start 09/19/18 at 12:30 Minoxidil (Loniten) 5 mg BID PO Last administered on 09/24/18 09:07; Admin Dose 5 MG; Start 09/19/18 at 13:30 Metoclopramide HCl (Reglan) 5 mg Q6 IV Last administered on 09/24/18 12:17; Admin Dose 5 MG; Start 09/20/18 at 00:00 Eye Lubricant (Artificial Tears Oph) 2 drop QID BOTH EYES Last administered on 09/24/18 12:18; Admin Dose 2 DROP; Start 09/20/18 at 20:00 Piperacillin Sod/ Tazobactam Sod 50 ml @ 100 mls/hr Q8 IVPB Last administered on 09/24/18 05:56; Admin Dose 100 MLS/HR; Start 09/21/18 at 18:00 Nitroglycerin (Nitroglycerin 0.2 Mg/Hr) 1 patch DAILY TRANSDERM Last administered on 09/24/18 09:07; Admin Dose 1 PATCH; Start 09/22/18 at 11:30 Clonidine (Catapres) 0.2 mg TID PO Last administered on 09/24/18 12:17; Admin Dose 0.2 MG; Start 09/23/18 at 09:00 Labetalol HCl (Normodyne) 400 mg BID PO Last administered on 09/24/18 09:07; Admin Dose 400 MG; Start 09/23/18 at 13:30 Clonidine (Catapres) 0.1 mg Q4H PRN NGT SBP > 170; Start 09/23/18 at 13:30 Guaifenesin/ Dextromethorphan (Robitussin Dm Liquid Cup) 10 ml Q6 PRN PO COUGH Last administered on 09/24/18 12:30; Admin Dose 10 ML; Start 09/23/18 at 13:30 Patient Own Medication 1 ea BID LEFT EYE Last administered on 09/24/18 09:06; Admin Dose 1 EA; Start 09/23/18 at 21:00 COREY SARAVIA Sep 24, 2018 13:11
--- NOTE | 2018-09-24 13:57 | CONS ---
Consult Date/Type/Reason Admit Date/Time Sep 19, 2018 at 06:33 Initial Consult Date 09/23/18 Type of Consultation: Pulm/CCM Requesting Provider: COREY SARAVIA Date/Time of Note DATE: 09/24/18 TIME: 13:54 Subjective Off NTG gtt. Feeling better. No SOB. Objective Vitals Vital Signs Date Temp Pulse Resp B/P (MAP) Pulse Ox O2 O2 Flow FiO2 Time Delivery Rate 09/24/18 59 17 108/56 94 Room Air 13:00 (73) 09/24/18 97.9 12:00 Intake and Output 09/23/18 09/23/18 09/24/18 1515:00 23:00 07:00 IntakeIntake Total 437.0 ml 858.5 ml 50 ml OutputOutput Total 3500 ml BalanceBalance 437.0 ml -2641.5 ml 50 ml Exam HEENT: Neck supple; no JVD; no LAD CVS: RRR, S1 and S2 CHEST: Clear ABD: Soft, NT, + BS EXT: No c/c/e Results/Medications Result Diagram: 09/24/18 0430 09/24/18 0430 Results 24 hrs Laboratory Tests Test 09/23/18 18:35 09/23/18 20:44 09/24/18 00:56 09/24/18 04:30 Bedside Glucose 125 149 109 White Blood Count 3.1 #L Red Blood Count 3.74 L Hemoglobin 11.2 L Hematocrit 33.8 L Mean Corpuscular Volume 90.4 Mean Corpuscular 29.9 Hemoglobin Mean Corpuscular 33.1 Hemoglobin Concent Red Cell Distribution 13.2 Width Platelet Count 118 #L Mean Platelet Volume 10.7 H Immature Granulocytes % 0.300 Neutrophils % 44.1 Lymphocytes % 23.8 Monocytes % 10.9 Eosinophils % 20.3 H Basophils % 0.6 Nucleated Red Blood 0.0 Cells % Immature Granulocytes # 0.010 Neutrophils # 1.4 L Lymphocytes # 0.7 L Monocytes # 0.3 Eosinophils # 0.6 H Basophils # 0.0 Nucleated Red Blood 0.0 Cells # Sodium Level 135 Potassium Level 5.9 H Chloride Level 95 L Carbon Dioxide Level 25 Anion Gap 15 H Blood Urea Nitrogen 42 #H Creatinine 7.42 H Est Glomerular Filtrat 8 L Rate mL/min Glucose Level 94 Calcium Level 8.6 Total Bilirubin 0.1 L Direct Bilirubin 0.00 Indirect Bilirubin 0.1 Aspartate Amino 19 Transf (AST/SGOT) Alanine 15 Aminotransferase (ALT/SG PT) Alkaline Phosphatase 52 Total Protein 7.7 Albumin 4.3 Globulin 3.40 H Albumin/Globulin Ratio 1.26 Test 09/24/18 08:47 09/24/18 12:14 Bedside Glucose 91 125 Home Meds Active Scripts Nifedipine (Procardia Xl) 60 Mg Tab.er.24, 60 MG PO BID for 30 Days, TAB Prov:MARGARITO DAMICO 08/25/18 Minoxidil* (Lonitin*) 2.5 Mg Tab, 5 MG PO BID for 30 Days, TAB Prov:MARGARITO DAMICO 08/25/18 Labetalol Hcl* (Labetalol Hcl*) 200 Mg Tablet, 400 MG PO BID for 30 Days, TAB Prov:MARGARITO DAMICO 08/25/18 Reported Medications Isosorbide Mononitrate* (Isosorbide Mononitrate*) 60 Mg Tab.er.24h, 60 MG PO DAILY, TAB 08/15/18 Losartan Potassium* (Losartan Potassium*) 50 Mg Tablet, 50 MG PO DAILY, TAB 08/15/18 Famotidine* (Famotidine*) 20 Mg Tablet, 20 MG PO BID, #60 TAB 08/15/18 Atropine Sulfate/0.9 %Sod Chlr (Atropine 0.01%-Ns Eye Drops) 10 Ml Drops, 15 ML OP BID, BOTTLE 08/15/18 Tamsulosin Hcl* (Tamsulosin Hcl*) 0.4 Mg Cap.er.24h, 0.4 MG PO DAILY, CAP 08/15/18 Clonidine Hcl* (Clonidine Hcl*) 0.1 Mg Tab, 0.2 MG PO BID PRN for ELEVATED BLOOD PRESSURE, TAB 08/15/18 Sevelamer Carbonate* (Renvela*) 800 Mg Tablet, 0.8 GM PO WITH MEALS, TAB 08/15/18 Medications Current Medications Heparin Sodium (Porcine) (Heparin (1000 Units/ml)) 4,000 unit AFTER DIALYSIS CATHETER Last administered on 09/23/18at 18:30; Admin Dose 4,000 UNIT; Start 09/19/18 at 07:30 Mannitol 50 ml @ 50 mls/5 min WITH DIALYSIS PRN IV DISEQUILIBRIUM SYNDROME PPX; Start 09/19/18 at 07:30 Albumin Human 100 ml @ 100 mls/hr WITH DIALYSIS PRN IV SBP <90 DURING DIALYSIS; Start 09/19/18 at 07:30 Sodium Chloride (NS) -To prime the dialy... DIRECTED FOR HD PRN IV HD; Start 09/19/18 at 07:30 Acetaminophen (Tylenol Tab) 650 mg Q6 PRN PO .MILD PAIN 1-3 OR TEMP; Start 09/19/18 at 10:30 Ondansetron HCl (Zofran Inj) 4 mg Q4 PRN IV NAUSEA/VOMITING Last administered on 09/22/18at 21:11; Admin Dose 4 MG; Start 09/19/18 at 10:30 Diagnostic Test (Pha) (Accu-Chek) 1 ea 02 XX Last administered on 09/24/18at 01:19; Admin Dose 1 EA; Start 09/20/18 at 02:00 Insulin Aspart (Novolog Insulin Pen) NOVOLOG *MILD* ALGORITHM WITH MEALS BEDTI ME SC Last administered on 09/22/18at 17:21; Admin Dose 1 UNIT; Start 09/19/18 at 11:30 Miscellaneous Information 1 ea NOTE XX ; Start 09/19/18 at 11:00 Glucose (Glutose) 15 gm Q15M PRN PO DECREASED GLUCOSE; Start 09/19/18 at 11:00 Glucose (Glutose) 22.5 gm Q15M PRN PO DECREASED GLUCOSE; Start 09/19/18 at 11:00 Dextrose (D50w Syringe) 25 ml Q15M PRN IV DECREASED GLUCOSE; Start 09/19/18 at 11:00 Dextrose (D50w Syringe) 50 ml Q15M PRN IV DECREASED GLUCOSE; Start 09/19/18 at 11:00 Glucagon (Glucagen) 1 mg Q15M PRN IM DECREASED GLUCOSE; Start 09/19/18 at 11:00 Glucose (Glutose) 15 gm Q15M PRN BUCCAL DECREASED GLUCOSE; Start 09/19/18 at 11:00 Famotidine (Pepcid) 20 mg DAILY PO Last administered on 09/24/18at 09:07; Admin Dose 20 MG; Start 09/19/18 at 13:00 Nifedipine (Procardia Xl) 60 mg BID PO Last administered on 09/24/18at 09:08; Admin Dose 60 MG; Start 09/19/18 at 12:30 Sevelamer Carbonate (Renvela) 0.8 gm WITH MEALS PO Last administered on 09/24/18 12:16; Admin Dose 0.8 GM; Start 09/19/18 at 17:35 Tamsulosin HCl (Flomax) 0.4 mg DAILY PO Last administered on 09/24/18 09:06; Admin Dose 0.4 MG; Start 09/19/18 at 12:30 Minoxidil (Loniten) 5 mg BID PO Last administered on 09/24/18 09:07; Admin Dose 5 MG; Start 09/19/18 at 13:30 Metoclopramide HCl (Reglan) 5 mg Q6 IV Last administered on 09/24/18 12:17; Admin Dose 5 MG; Start 09/20/18 at 00:00 Eye Lubricant (Artificial Tears Oph) 2 drop QID BOTH EYES Last administered on 09/24/18 12:18; Admin Dose 2 DROP; Start 09/20/18 at 20:00 Piperacillin Sod/ Tazobactam Sod 50 ml @ 100 mls/hr Q8 IVPB Last administered on 09/24/18 05:56; Admin Dose 100 MLS/HR; Start 09/21/18 at 18:00 Nitroglycerin (Nitroglycerin 0.2 Mg/Hr) 1 patch DAILY TRANSDERM Last administered on 09/24/18 09:07; Admin Dose 1 PATCH; Start 09/22/18 at 11:30 Clonidine (Catapres) 0.2 mg TID PO Last administered on 09/24/18 12:17; Admin Dose 0.2 MG; Start 09/23/18 at 09:00 Labetalol HCl (Normodyne) 400 mg BID PO Last administered on 09/24/18 09:07; Admin Dose 400 MG; Start 09/23/18 at 13:30 Clonidine (Catapres) 0.1 mg Q4H PRN NGT SBP > 170; Start 09/23/18 at 13:30 Guaifenesin/ Dextromethorphan (Robitussin Dm Liquid Cup) 10 ml Q6 PRN PO COUGH Last administered on 09/24/18 12:30; Admin Dose 10 ML; Start 09/23/18 at 13:30 Patient Own Medication 1 ea BID LEFT EYE Last administered on 4/6/19at 09:06; Admin Dose 1 EA; Start 09/23/18 at 21:00 Sodium Polystyrene Sulfonate (Kayexalate) 30 gm ONCE ONCE PO ; Start 09/24/18 at 14:00; Stop 09/24/18 at 14:01 Assessment/Plan Assessment/Plan (Daily) IMP: 1. HTN emergency--improved 2. Hyperkalemia 3. CKD on HD 4. Volume overload--on HD/UF 5. Anemia 6. RLL pleural -based lesions RECS: 1. Stable for telemetry 2. Continue HD/UF 3. Will require CT-guided biopsy of RLL pleural lesions 4. Send TB Quant Gold and cocci serologies 35 min cc time ELIAS ZUNIGA MD Sep 24, 2018 13:57
[2018-09-24] MEDS ORDERED: NA POLYST SULFON 15 GM/60 ML BTL PO ONE (14:00)
[2018-09-25] VITALS (14 sets, daily range): BP systolic 99–156; BP diastolic 50–73; PULSE 55–88; RESP 18
[2018-09-25] MEDS: ACCU-CHEK XX SCH (02:00)
--- NOTE | 2018-09-25 05:23 | CONS ---
Assessment/Plan Assessment/Plan Assessment/Plan (Daily) 1. acute hyperkalemia -5.9 today; no labs today - SP Kayexalate 30 gm po x1 today - fu BMP am 2. Hypertensive emergency on NTG drip 3. ESRD on HD MWF with acute hyperklaemia and acute fluid overload 4. Possible Cholecysitits 5. H/o CAD s/p CABG 6. H/O HTN 7. H/o HL 8. H/o DM II Plan: s/p HD yesterday 3 L removed, -will keep pt on MWF schedule Nifedipine 60mg pO BID with Minoxidil 5 mg BID, clonidine prn IV hydralazine pnr IV abx zosyn to cover for infeciton/cholecystitis, GI consulted on the case Patient seen in collaboration with Dr Ortez Consultation Date/Type/Reason Admit Date/Time Sep 19, 2018 at 06:33 Initial Consult Date 09/23/18 Requesting Provider: COREY SARAVIA Date/Time of Note DATE: 09/25/18 TIME: 05:23 24 HR Interval Summary Free Text/Dictation Patient got transferred from ICU to tele denies any complaints now BP stable no new issues reported overnight dw staff Exam/Review of Systems Exam Vitals Vital Signs Date Temp Pulse Resp B/P (MAP) Pulse Ox O2 O2 Flow FiO2 Time Delivery Rate 09/25/18 71 04:00 09/25/18 98.2 18 111/55 99 03:43 (73) 09/24/18 Room Air 15:00 Intake and Output 09/24/18 09/24/18 09/25/18 1515:00 23:00 07:00 IntakeIntake Total 600 ml 150 ml 50 ml BalanceBalance 600 ml 150 ml 50 ml Results Result Diagram: 09/24/18 0430 09/24/18 0430 Results 24hrs Laboratory Tests Test 09/24/18 08:47 09/24/18 12:14 09/24/18 16:57 09/24/18 20:08 Bedside Glucose 91 125 164 121 Medications Medication Current Medications Heparin Sodium (Porcine) (Heparin (1000 Units/ml)) 4,000 unit AFTER DIALYSIS CATHETER Last administered on 09/23/18at 18:30; Admin Dose 4,000 UNIT; Start 09/19/18 at 07:30 Mannitol 50 ml @ 50 mls/5 min WITH DIALYSIS PRN IV DISEQUILIBRIUM SYNDROME PPX; Start 09/19/18 at 07:30 Albumin Human 100 ml @ 100 mls/hr WITH DIALYSIS PRN IV SBP <90 DURING DIALYSIS; Start 09/19/18 at 07:30 Sodium Chloride (NS) -To prime the dialy... DIRECTED FOR HD PRN IV HD; Start 09/19/18 at 07:30 Acetaminophen (Tylenol Tab) 650 mg Q6 PRN PO .MILD PAIN 1-3 OR TEMP; Start 09/19 at 10:30 Ondansetron HCl (Zofran Inj) 4 mg Q4 PRN IV NAUSEA/VOMITING Last administered on 09/22/18at 21:11; Admin Dose 4 MG; Start 09/19/18 at 10:30 Diagnostic Test (Pha) (Accu-Chek) 1 ea 02 XX Last administered on 09/24/18at 01:19; Admin Dose 1 EA; Start 09/20/18 at 02:00 Insulin Aspart (Novolog Insulin Pen) NOVOLOG *MILD* ALGORITHM WITH MEALS BEDTIME SC Last administered on 09/22/18at 17:21; Admin Dose 1 UNIT; Start 09/19/18 at 11:30 Miscellaneous Information 1 ea NOTE XX ; Start 09/19/18 at 11:00 Glucose (Glutose) 15 gm Q15M PRN PO DECREASED GLUCOSE; Start 09/19/18 at 11:00 Glucose (Glutose) 22.5 gm Q15M PRN PO DECREASED GLUCOSE; Start 09/19/18 at 11:00 Dextrose (D50w Syringe) 25 ml Q15M PRN IV DECREASED GLUCOSE; Start 09/19/18 at 11:00 Dextrose (D50w Syringe) 50 ml Q15M PRN IV DECREASED GLUCOSE; Start 09/19/18 at 11:00 Glucagon (Glucagen) 1 mg Q15M PRN IM DECREASED GLUCOSE; Start 09/19/18 at 11:00 Glucose (Glutose) 15 gm Q15M PRN BUCCAL DECREASED GLUCOSE; Start 09/19/18 at 11:00 Famotidine (Pepcid) 20 mg DAILY PO Last administered on 09/24/18at 09:07; Admin Dose 20 MG; Start 09/19/18 at 13:00 Nifedipine (Procardia Xl) 60 mg BID PO Last administered on 09/24/18at 09:08; Admin Dose 60 MG; Start 09/19/18 at 12:30 Sevelamer Carbonate (Renvela) 0.8 gm WITH MEALS PO Last administered on 09/24/18 17:48; Admin Dose 0.8 GM; Start 09/19/18 at 17:35 Tamsulosin HCl (Flomax) 0.4 mg DAILY PO Last administered on 09/24/18 09:06; Admin Dose 0.4 MG; Start 09/19/18 at 12:30 Minoxidil (Loniten) 5 mg BID PO Last administered on 09/24/18 09:07; Admin Dose 5 MG; Start 09/19/18 at 13:30 Metoclopramide HCl (Reglan) 5 mg Q6 IV Last administered on 09/24/18 17:00; Admin Dose 5 MG; Start 09/20/18 at 00:00 Eye Lubricant (Artificial Tears Oph) 2 drop QID BOTH EYES Last administered on 09/24/18 21:43; Admin Dose 2 DROP; Start 09/20/18 at 20:00 Piperacillin Sod/ Tazobactam Sod 50 ml @ 100 mls/hr Q8 IVPB Last administered on 09/24/18 23:41; Admin Dose 100 MLS/HR; Start 09/21/18 at 18:00 Nitroglycerin (Nitroglycerin 0.2 Mg/Hr) 1 patch DAILY TRANSDERM Last administered on 09/24/18 09:07; Admin Dose 1 PATCH; Start 09/22/18 at 11:30 Clonidine (Catapres) 0.2 mg TID PO Last administered on 09/24/18 12:17; Admin Dose 0.2 MG; Start 09/23/18 at 09:00 Labetalol HCl (Normodyne) 400 mg BID PO Last administered on 09/24/18 09:07; Admin Dose 400 MG; Start 09/23/18 at 13:30 Clonidine (Catapres) 0.1 mg Q4H PRN NGT SBP > 170; Start 09/23/18 at 13:30 Guaifenesin/ Dextromethorphan (Robitussin Dm Liquid Cup) 10 ml Q6 PRN PO COUGH Last administered on 09/24/18 12:30; Admin Dose 10 ML; Start 09/23/18 at 13:30 Patient Own Medication 1 ea BID LEFT EYE Last administered on 09/24/18at 21:44; Admin Dose 1 EA; Start 09/23/18 at 21:00 COREY SARAVIA Sep 25, 2018 05:23
[2018-09-25] MEDS: METOCLOPRAMIDE 10 MG INJ IV SCH ×4 (06:00→17:25)
[2018-09-25] MEDS: PIPER-TAZO 2.25 GM (PMX) 50 ML IVPB SCH ×3 (06:25→21:21)
[2018-09-25] MEDS: INSULIN ASPART [NOVOLOG] 3 ML PEN SC SCH ×4 (07:54→21:00)
[2018-09-25] MEDS: SEVELAMER CARBONATE 0.8 GM PKT PO SCH ×3 (08:15→17:25)
[2018-09-25] MEDS: NIFEdipine (XL) 60 MG TAB PO SCH ×2 (09:34→21:00)
[2018-09-25] MEDS: MINOXIDIL 2.5 MG TAB PO SCH ×2 (09:34→21:00)
[2018-09-25] MEDS: TAMSULOSIN (SR) 0.4 MG CAP PO SCH (09:35)
[2018-09-25] MEDS: FAMOTIDINE 20 MG TAB PO SCH (09:35)
[2018-09-25] MEDS: LABETALOL 200 MG TAB PO SCH ×2 (09:36→21:00)
[2018-09-25] MEDS: NITROGLYCERIN 0.2 MG/HR PATCH TRANSDERM SCH (09:39)
[2018-09-25] MEDS: ATROPINE SULFATE 1% LEFT EYE SCH ×2 (09:40→21:22)
[2018-09-25] MEDS: ARTIFICIAL TEARS 15 ML OPH BOTH EYES SCH ×4 (09:40→21:22)
--- NOTE | 2018-09-25 12:13 | PN ---
Date/Time of Note Date/Time of Note DATE: 09/25/18 TIME: 12:13 Assessment/Plan VTE Prophylaxis Risk score (from Ns)>0 risk: 1 SCD applied (from Ns): No SCD contraindicated: other Pharmacological prophylaxis: LMWH Lines/Catheters IV [facility]ter [facility]from [facility] Permacath Urinary Cath still in place: No Assessment/Plan Hospital Course - Hypertensive emergency, continue nitroglycerin drip patient is currently on minoxidil Procardia and clonidine. - Hyperkalemia, resolved s/p emergent hemodialysis, Dr. Ortez is following in nephrology consultation. - Abdominal pain most likely secondary to gastritis versus PUD, abdominal ultrasound notable for distended gallbladder with marked wall thickening. Continue PPI and Reglan. Dr. Winkler is following in GI consultation. - Possible cholecystitis, continue Zosyn - LLL mass decreased with pleural consolidation increased in volume per recent CT. Dr Mueller is following in pulmonology consultation. - HTN - DM - CAD, Hx of CABG - ESRD on HD - Legal blindness. No acute issue. - MRSA of nares colonization Result Diagram: 09/24/18 0430 09/25/18 0515 Results 24hrs Laboratory Tests Test 09/24/18 12:14 09/24/18 16:57 09/24/18 20:08 09/25/18 05:15 Bedside Glucose 125 164 121 Sodium Level 135 Potassium Level 4.8 Chloride Level 94 L Carbon Dioxide Level 21 Anion Gap 20 H Blood Urea Nitrogen 68 H Creatinine 9.82 #H Est Glomerular Filtrat 6 L Rate mL/min Glucose Level 96 Calcium Level 7.1 L Test 09/25/18 07:47 09/25/18 11:50 Bedside Glucose 106 110 Subjective 24 Hr Interval Summary Free Text/Dictation Patient has no complaints Exam/Review of Systems Exam Vitals Vital Signs Date Temp Pulse Resp B/P (MAP) Pulse Ox O2 O2 Flow FiO2 Time Delivery Rate 09/25/18 97.9 63 18 148/68 97 11:32 (94) 09/24/18 Room Air 15:00 Intake and Output 09/24/18 09/24/18 09/25/18 1515:00 23:00 07:00 IntakeIntake Total 600 ml 150 ml 250 ml BalanceBalance 600 ml 150 ml 250 ml Constitutional: well developed Head: normocephalic, atraumatic Neck: supple Respiratory: clear to auscultation Cardiovascular: regular rate and rhythm Gastrointestinal: soft, non-tender Extremities: normal pulses Results Results 24hrs Laboratory Tests Test 09/24/18 12:14 09/24/18 16:57 09/24/18 20:08 09/25/18 05:15 Bedside Glucose 125 164 121 Sodium Level 135 Potassium Level 4.8 Chloride Level 94 L Carbon Dioxide Level 21 Anion Gap 20 H Blood Urea Nitrogen 68 H Creatinine 9.82 #H Est Glomerular Filtrat 6 L Rate mL/min Glucose Level 96 Calcium Level 7.1 L Test 09/25/18 07:47 09/25/18 11:50 Bedside Glucose 106 110 Medications Medication Current Medications Heparin Sodium (Porcine) (Heparin (1000 Units/ml)) 4,000 unit AFTER DIALYSIS CATHETER Last administered on 09/23/18at 18:30; Admin Dose 4,000 UNIT; Start 09/19/18 at 07:30 Mannitol 50 ml @ 50 mls/5 min WITH DIALYSIS PRN IV DISEQUILIBRIUM SYNDROME PPX; Start 09/19/18 at 07:30 Albumin Human 100 ml @ 100 mls/hr WITH DIALYSIS PRN IV SBP <90 DURING DIALYSIS; Start 09/19/18 at 07:30 Sodium Chloride (NS) -To prime the dialy... DIRECTED FOR HD PRN IV HD; Start 09/19/18 at 07:30 Acetaminophen (Tylenol Tab) 650 mg Q6 PRN PO .MILD PAIN 1-3 OR TEMP; Start 09/19/18 at 10:30 Ondansetron HCl (Zofran Inj) 4 mg Q4 PRN IV NAUSEA/VOMITING Last administered on 09/22/18at 21:11; Admin Dose 4 MG; Start 09/19/18 at 10:30 Diagnostic Test (Pha) (Accu-Chek) 1 ea 02 XX Last administered on 09/24/18at 01:19; Admin Dose 1 EA; Start 09/20/18 at 02:00 Insulin Aspart (Novolog Insulin Pen) NOVOLOG *MILD* ALGORITHM WITH MEALS BEDTIME SC Last administered on 09/22/18at 17:21; Admin Dose 1 UNIT; Start 09/19/18 at 11:30 Miscellaneous Information 1 ea NOTE XX ; Start 09/19/18 at 11:00 Glucose (Glutose) 15 gm Q15M PRN PO DECREASED GLUCOSE; Start 09/19/18 at 11:00 Glucose (Glutose) 22.5 gm Q15M PRN PO DECREASED GLUCOSE; Start 09/19/18 at 11:00 Dextrose (D50w Syringe) 25 ml Q15M PRN IV DECREASED GLUCOSE; Start 09/19/18 at 11:00 Dextrose (D50w Syringe) 50 ml Q15M PRN IV DECREASED GLUCOSE; Start 09/19/18 at 11:00 Glucagon (Glucagen) 1 mg Q15M PRN IM DECREASED GLUCOSE; Start 09/19/18 at 11:00 Glucose (Glutose) 15 gm Q15M PRN BUCCAL DECREASED GLUCOSE; Start 09/19/18 at 11:00 Famotidine (Pepcid) 20 mg DAILY PO Last administered on 09/25/18 09:35; Admin Dose 20 MG; Start 09/19/18 at 13:00 Nifedipine (Procardia Xl) 60 mg BID PO Last administered on 09/25/18 09:34; Admin Dose 60 MG; Start 09/19/18 at 12:30 Sevelamer Carbonate (Renvela) 0.8 gm WITH MEALS PO Last administered on 09/25/18 11:53; Admin Dose 0.8 GM; Start 09/19/18 at 17:35 Tamsulosin HCl (Flomax) 0.4 mg DAILY PO Last administered on 09/25/18 09:35; Admin Dose 0.4 MG; Start 09/19/18 at 12:30 Minoxidil (Loniten) 5 mg BID PO Last administered on 09/25/18 09:34; Admin Dose 5 MG; Start 09/19/18 at 13:30 Metoclopramide HCl (Reglan) 5 mg Q6 IV Last administered on 09/25/18 11:25; Admin Dose 5 MG; Start 09/20/18 at 00:00 Eye Lubricant (Artificial Tears Oph) 2 drop QID BOTH EYES Last administered on 09/25/18 09:40; Admin Dose 2 DROP; Start 09/20/18 at 20:00 Piperacillin Sod/ Tazobactam Sod 50 ml @ 100 mls/hr Q8 IVPB Last administered on 09/25/18 06:25; Admin Dose 100 MLS/HR; Start 09/21/18 at 18:00 Nitroglycerin (Nitroglycerin 0.2 Mg/Hr) 1 patch DAILY TRANSDERM Last administered on 09/25/18 09:39; Admin Dose 1 PATCH; Start 09/22/18 at 11:30 Clonidine (Catapres) 0.2 mg TID PO Last administered on 09/25/18 09:35; Admin Dose 0.2 MG; Start 09/23/18 at 09:00 Labetalol HCl (Normodyne) 400 mg BID PO Last administered on 09/25/18 09:36; Admin Dose 400 MG; Start 09/23/18 at 13:30 Clonidine (Catapres) 0.1 mg Q4H PRN NGT SBP > 170; Start 09/23/18 at 13:30 Guaifenesin/ Dextromethorphan (Robitussin Dm Liquid Cup) 10 ml Q6 PRN PO COUGH Last administered on 09/24/18 12:30; Admin Dose 10 ML; Start 09/23/18 at 13:30 Patient Own Medication 1 ea BID LEFT EYE Last administered on 09/25/18 09:40; Admin Dose 1 EA; Start 09/23/18 at 21:00 KELSI FELICIANO Sep 25, 2018 12:13
[2018-09-25] MEDS: GUAIFENESIN/DM 5ML CUP PO PRN ×2 (12:40→21:39)
--- NOTE | 2018-09-25 13:28 | CONS ---
Consult Date/Type/Reason Admit Date/Time Sep 19, 2018 at 06:33 Initial Consult Date 09/23/18 Type of Consultation: Pulm/CCM Requesting Provider: COREY SARAVIA Date/Time of Note DATE: 09/25/18 TIME: 13:27 Subjective No events overnight. No c/o. Objective Vitals Vital Signs Date Temp Pulse Resp B/P (MAP) Pulse Ox O2 O2 Flow FiO2 Time Delivery Rate 09/25/18 97.9 63 18 148/68 97 11:32 (94) 09/24/18 Room Air 15:00 Intake and Output 09/24/18 09/24/18 09/25/18 1515:00 23:00 07:00 IntakeIntake Total 600 ml 150 ml 250 ml BalanceBalance 600 ml 150 ml 250 ml Exam HEENT: Neck supple; no JVD; no LAD CVS: RRR, S1 and S2 CHEST: Clear ABD: Soft, NT, + BS EXT: No c/c/e Results/Medications Result Diagram: 09/24/18 0430 09/25/18 0515 Results 24 hrs Laboratory Tests Test 09/24/18 16:57 09/24/18 20:08 09/25/18 05:15 09/25/18 07:47 Bedside Glucose 164 121 106 Sodium Level 135 Potassium Level 4.8 Chloride Level 94 L Carbon Dioxide Level 21 Anion Gap 20 H Blood Urea Nitrogen 68 H Creatinine 9.82 #H Est Glomerular Filtrat 6 L Rate mL/min Glucose Level 96 Calcium Level 7.1 L Test 09/25/18 11:50 Bedside Glucose 110 Home Meds Active Scripts Nifedipine (Procardia Xl) 60 Mg Tab.er.24, 60 MG PO BID for 30 Days, TAB Prov:MARGARITO DAMICO 08/25/18 Minoxidil* (Lonitin*) 2.5 Mg Tab, 5 MG PO BID for 30 Days, TAB Prov:MARGARITO DAMICO 08/25/18 Labetalol Hcl* (Labetalol Hcl*) 200 Mg Tablet, 400 MG PO BID for 30 Days, TAB Prov:MARGARITO DAMICO 08/25/18 Reported Medications Isosorbide Mononitrate* (Isosorbide Mononitrate*) 60 Mg Tab.er.24h, 60 MG PO DAILY, TAB 08/15/18 Losartan Potassium* (Losartan Potassium*) 50 Mg Tablet, 50 MG PO DAILY, TAB 08/15/18 Famotidine* (Famotidine*) 20 Mg Tablet, 20 MG PO BID, #60 TAB 08/15/18 Atropine Sulfate/0.9 %Sod Chlr (Atropine 0.01%-Ns Eye Drops) 10 Ml Drops, 15 ML OP BID, BOTTLE 08/15/18 Tamsulosin Hcl* (Tamsulosin Hcl*) 0.4 Mg Cap.er.24h, 0.4 MG PO DAILY, CAP 08/15/18 Clonidine Hcl* (Clonidine Hcl*) 0.1 Mg Tab, 0.2 MG PO BID PRN for ELEVATED BLOOD PRESSURE, TAB 08/15/18 Sevelamer Carbonate* (Renvela*) 800 Mg Tablet, 0.8 GM PO WITH MEALS, TAB 08/15/18 Medications Current Medications Heparin Sodium (Porcine) (Heparin (1000 Units/ml)) 4,000 unit AFTER DIALYSIS CATHETER Last administered on 09/23/18at 18:30; Admin Dose 4,000 UNIT; Start 09/19/18 at 07:30 Mannitol 50 ml @ 50 mls/5 min WITH DIALYSIS PRN IV DISEQUILIBRIUM SYNDROME PPX; Start 09/19/18 at 07:30 Albumin Human 100 ml @ 100 mls/hr WITH DIALYSIS PRN IV SBP <90 DURING DIALYSIS; Start 09/19/18 at 07:30 Sodium Chloride (NS) -To prime the dialy... DIRECTED FOR HD PRN IV HD; Start 09/19/18 at 07:30 Acetaminophen (Tylenol Tab) 650 mg Q6 PRN PO .MILD PAIN 1-3 OR TEMP; Start 09/19/18 at 10:30 Ondansetron HCl (Zofran Inj) 4 mg Q4 PRN IV NAUSEA/VOMITING Last administered on 09/22/18at 21:11; Admin Dose 4 MG; Start 09/19/18 at 10:30 Diagnostic Test (Pha) (Accu-Chek) 1 ea 02 XX Last administered on 09/24/18at 01:19; Admin Dose 1 EA; Start 09/20/18 at 02:00 Insulin Aspart (Novolog Insulin Pen) NOVOLOG *MILD* ALGORITHM WITH MEALS BEDTIME SC Last administered on 09/22/18at 17:21; Admin Dose 1 UNIT; Start 09/19/18 at 11:30 Miscellaneous Information 1 ea NOTE XX ; Start 09/19/18 at 11:00 Glucose (Glutose) 15 gm Q15M PRN PO DECREASED GLUCOSE; Start 09/19/18 at 11:00 Glucose (Glutose) 22.5 gm Q15M PRN PO DECREASED GLUCOSE; Start 09/19/18 at 11:00 Dextrose (D50w Syringe) 25 ml Q15M PRN IV DECREASED GLUCOSE; Start 09/19/18 at 11:00 Dextrose (D50w Syringe) 50 ml Q15M PRN IV DECREASED GLUCOSE; Start 09/19/18 at 11:00 Glucagon (Glucagen) 1 mg Q15M PRN IM DECREASED GLUCOSE; Start 09/19/18 at 11:00 Glucose (Glutose) 15 gm Q15M PRN BUCCAL DECREASED GLUCOSE; Start 09/19/18 at 11:00 Famotidine (Pepcid) 20 mg DAILY PO Last administered on 09/25/18 09:35; Admin Dose 20 MG; Start 09/19/18 at 13:00 Nifedipine (Procardia Xl) 60 mg BID PO Last administered on 09/25/18 09:34; Admin Dose 60 MG; Start 09/19/18 at 12:30 Sevelamer Carbonate (Renvela) 0.8 gm WITH MEALS PO Last administered on 09/25/18 11:53; Admin Dose 0.8 GM; Start 09/19/18 at 17:35 Tamsulosin HCl (Flomax) 0.4 mg DAILY PO Last administered on 09/25/18 09:35; Admin Dose 0.4 MG; Start 09/19/18 at 12:30 Minoxidil (Loniten) 5 mg BID PO Last administered on 09/25/18 09:34; Admin Dose 5 MG; Start 09/19/18 at 13:30 Metoclopramide HCl (Reglan) 5 mg Q6 IV Last administered on 09/25/18 11:25; Admin Dose 5 MG; Start 09/20/18 at 00:00 Eye Lubricant (Artificial Tears Oph) 2 drop QID BOTH EYES Last administered on 09/25/18 09:40; Admin Dose 2 DROP; Start 09/20/18 at 20:00 Piperacillin Sod/ Tazobactam Sod 50 ml @ 100 mls/hr Q8 IVPB Last administered on 09/25/18 06:25; Admin Dose 100 MLS/HR; Start 09/21/18 at 18:00 Nitroglycerin (Nitroglycerin 0.2 Mg/Hr) 1 patch DAILY TRANSDERM Last admini stered on 09/25/18 09:39; Admin Dose 1 PATCH; Start 09/22/18 at 11:30 Clonidine (Catapres) 0.2 mg TID PO Last administered on 09/25/18 09:35; Admin Dose 0.2 MG; Start 09/23/18 at 09:00 Labetalol HCl (Normodyne) 400 mg BID PO Last administered on 09/25/18 09:36; Admin Dose 400 MG; Start 09/23/18 at 13:30 Clonidine (Catapres) 0.1 mg Q4H PRN NGT SBP > 170; Start 09/23/18 at 13:30 Guaifenesin/ Dextromethorphan (Robitussin Dm Liquid Cup) 10 ml Q6 PRN PO COUGH Last administered on 09/25/18 12:40; Admin Dose 10 ML; Start 09/23/18 at 13:30 Patient Own Medication 1 ea BID LEFT EYE Last administered on 09/25/18 09:40; Admin Dose 1 EA; Start 09/23/18 at 21:00 Assessment/Plan Assessment/Plan (Daily) IMP: 1. HTN emergency--improved 2. Hyperkalemia 3. CKD on HD 4. Volume overload--on HD/UF 5. Anemia 6. RLL pleural -based lesions RECS: 1. Continue to optimize BP 2. Continue HD/UF 3. Will require CT-guided biopsy of RLL pleural lesions 4. Send TB Quant Gold and cocci serologies ELIAS ZUNIGA MD Sep 25, 2018 13:28
--- NOTE | 2018-09-25 13:52 | CONS ---
Assessment/Plan Assessment/Plan Hospital Course (Demo Recall) Coverage for Dr. Garcia 1. Hypertensive urgency/resistant hypertension-improved 2. History of coronary artery disease 3. History of most likely [place] and coronary artery bypass graft 4. Renal failure on dialysis 5. Pulmonary vascular congestion/fluid overload 6. Diabetes 7. Dyslipidemia 8. Hyperkalemia-improved -Blood pressure trend overall improved -Fluid management via hemodialysis as per nephrology Consultation Date/Type/Reason Admit Date/Time Sep 19, 2018 at 06:33 Initial Consult Date 09/23/18 Type of Consult Cardiology Requesting Provider: COREY SARAVIA Date/Time of Note DATE: 09/25/18 TIME: 13:50 24 HR Interval Summary Free Text/Dictation Shortness of breath, chest pain or palpitations Exam/Review of Systems Vital Signs Vitals Vital Signs Date Temp Pulse Resp B/P (MAP) Pulse Ox O2 O2 Flow FiO2 Time Delivery Rate 09/25/18 97.9 63 18 148/68 97 11:32 (94) 09/24/18 Room Air 15:00 Intake and Output 09/24/18 09/24/18 09/25/18 1515:00 23:00 07:00 IntakeIntake Total 600 ml 150 ml 250 ml BalanceBalance 600 ml 150 ml 250 ml Exam Constitutional: alert, oriented (No apparent distress) Head: normocephalic Respiratory: other (Coarse breath sounds bilaterally, no wheezing) Cardiovascular: regular rate and rhythm (S1-S2 heard) Gastrointestinal: soft, non-tender, bowel sounds Extremities: edema (Trace) Labs Result Diagram: 09/24/18 0430 09/25/18 0515 Results 24hrs Laboratory Tests Test 09/24/18 16:57 09/24/18 20:08 09/25/18 05:15 09/25/18 07:47 Bedside Glucose 164 121 106 Sodium Level 135 Potassium Level 4.8 Chloride Level 94 L Carbon Dioxide Level 21 Anion Gap 20 H Blood Urea Nitrogen 68 H Creatinine 9.82 #H Est Glomerular Filtrat 6 L Rate mL/min Glucose Level 96 Calcium Level 7.1 L Test 09/25/18 11:50 Bedside Glucose 110 Medications Medications Current Medications Heparin Sodium (Porcine) (Heparin (1000 Units/ml)) 4,000 unit AFTER DIALYSIS CATHETER Last administered on 09/23/18at 18:30; Admin Dose 4,000 UNIT; Start 09/19/18 at 07:30 Mannitol 50 ml @ 50 mls/5 min WITH DIALYSIS PRN IV DISEQUILIBRIUM SYNDROME PPX; Start 09/19/18 at 07:30 Albumin Human 100 ml @ 100 mls/hr WITH DIALYSIS PRN IV SBP <90 DURING DIALYSIS; Start 09/19/18 at 07:30 Sodium Chloride (NS) -To prime the dialy... DIRECTED FOR HD PRN IV HD; Start 09/19/18 at 07:30 Acetaminophen (Tylenol Tab) 650 mg Q6 PRN PO .MILD PAIN 1-3 OR TEMP; Start 09/19/18 at 10:30 Ondansetron HCl (Zofran Inj) 4 mg Q4 PRN IV NAUSEA/VOMITING Last administered on 09/22/18at 21:11; Admin Dose 4 MG; Start 09/19/18 at 10:30 Diagnostic Test (Pha) (Accu-Chek) 1 ea 02 XX Last administered on 09/24/18at 01:19; Admin Dose 1 EA; Start 09/20/18 at 02:00 Insulin Aspart (Novolog Insulin Pen) NOVOLOG *MILD* ALGORITHM WITH MEALS BEDTIME SC Last administered on 09/22/18at 17:21; Admin Dose 1 UNIT; Start 09/19/18 at 11:30 Miscellaneous Information 1 ea NOTE XX ; Start 09/19/18 at 11:00 Glucose (Glutose) 15 gm Q15M PRN PO DECREASED GLUCOSE; Start 09/19/18 at 11:00 Glucose (Glutose) 22.5 gm Q15M PRN PO DECREASED GLUCOSE; Start 09/19/18 at 11:00 Dextrose (D50w Syringe) 25 ml Q15M PRN IV DECREASED GLUCOSE; Start 09/19/18 at 1 1:00 Dextrose (D50w Syringe) 50 ml Q15M PRN IV DECREASED GLUCOSE; Start 09/19/18 at 11:00 Glucagon (Glucagen) 1 mg Q15M PRN IM DECREASED GLUCOSE; Start 09/19/18 at 11:00 Glucose (Glutose) 15 gm Q15M PRN BUCCAL DECREASED GLUCOSE; Start 09/19/18 at 11:00 Famotidine (Pepcid) 20 mg DAILY PO Last administered on 09/25/18at 09:35; Admin Dose 20 MG; Start 09/19/18 at 13:00 Nifedipine (Procardia Xl) 60 mg BID PO Last administered on 09/25/18 09:34; Admin Dose 60 MG; Start 09/19/18 at 12:30 Sevelamer Carbonate (Renvela) 0.8 gm WITH MEALS PO Last administered on 09/25/18 11:53; Admin Dose 0.8 GM; Start 09/19/18 at 17:35 Tamsulosin HCl (Flomax) 0.4 mg DAILY PO Last administered on 09/25/18 09:35; Admin Dose 0.4 MG; Start 09/19/18 at 12:30 Minoxidil (Loniten) 5 mg BID PO Last administered on 09/25/18 09:34; Admin Dose 5 MG; Start 09/19/18 at 13:30 Metoclopramide HCl (Reglan) 5 mg Q6 IV Last administered on 09/25/18 11:25; Admin Dose 5 MG; Start 09/20/18 at 00:00 Eye Lubricant (Artificial Tears Oph) 2 drop QID BOTH EYES Last administered on 09/25/18 13:26; Admin Dose 2 DROP; Start 09/20/18 at 20:00 Piperacillin Sod/ Tazobactam Sod 50 ml @ 100 mls/hr Q8 IVPB Last administered on 09/25/18 06:25; Admin Dose 100 MLS/HR; Start 09/21/18 at 18:00 Nitroglycerin (Nitroglycerin 0.2 Mg/Hr) 1 patch DAILY TRANSDERM Last administered on 09/25/18 09:39; Admin Dose 1 PATCH; Start 09/22/18 at 11:30 Clonidine (Catapres) 0.2 mg TID PO Last administered on 09/25/18 13:26; Admin Dose 0.2 MG; Start 09/23/18 at 09:00 Labetalol HCl (Normodyne) 400 mg BID PO Last administered on 09/25/18 09:36; Admin Dose 400 MG; Start 09/23/18 at 13:30 Clonidine (Catapres) 0.1 mg Q4H PRN NGT SBP > 170; Start 09/23/18 at 13:30 Guaifenesin/ Dextromethorphan (Robitussin Dm Liquid Cup) 10 ml Q6 PRN PO COUGH Last administered on 4/7/19at 12:40; Admin Dose 10 ML; Start 09/23/18 at 13:30 Patient Own Medication 1 ea BID LEFT EYE Last administered on 09/25/18at 09:40; Admin Dose 1 EA; Start 09/23/18 at 21:00 Luigi Barton DO Sep 25, 2018 13:52
[2018-09-26] VITALS (26 sets, daily range): BP systolic 132–177; BP diastolic 66–121; PULSE 60–67; RESP 17–20
[2018-09-26] MEDS: ACCU-CHEK XX SCH (01:41)
[2018-09-26] MEDS: METOCLOPRAMIDE 10 MG INJ IV SCH ×5 (05:26→23:03)
[2018-09-26] MEDS: PIPER-TAZO 2.25 GM (PMX) 50 ML IVPB SCH ×4 (05:50→21:44)
[2018-09-26] MEDS: INSULIN ASPART [NOVOLOG] 3 ML PEN SC SCH ×4 (08:00→20:58)
--- NOTE | 2018-09-26 08:07 | CONS ---
Assessment/Plan Assessment/Plan Hospital Course (Demo Recall) 57 yo male presented with hyperkalemia Interval hx: BM yesterday soft. Denies nausea. C/O mild RUQ pain with positive Hartman's. LFTs wnl. Hgb stable. CBD measures 3.5mm wnl. 1. Abdominal pain with nausea and vomiting -resolved -gastritis v PUD v cholecystitis 2. Mild acute cholecystitis 3. RT lower lobe mass. 4. Hypertension. 5. Diabetes mellitus. 6. Coronary artery disease status post coronary artery bypass graft. 7. Legally blind. 8. 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 -silver buffer 11 9. Hyperkalemia, for which he had emergent dialysis and was also medically treated. US of upper abd 09/19: 1. Diffuse gallbladder wall thickening and trace pericholecystic fluid, appearance may indicate acute cholecystitis, reactive inflammation or edema. 2. No gallstones identified. 3. Mildly atrophic right kidney, echogenic appearance consistent with chronic medical renal disease. HIDA negative for cholecystitis PLAN: Check LFTs in am Continue with PPI and Reglan Pain management Pt examined and plan of care discussed with Dr. Winkler Consultation Date/Type/Reason Admit Date/Time Sep 19, 2018 at 06:33 Initial Consult Date 09/19/18 Requesting Provider: COREY SARAVIA Date/Time of Note DATE: 09/26/18 TIME: 08:04 Exam/Review of Systems Exam Vitals Vital Signs Date Temp Pulse Resp B/P (MAP) Pulse Ox O2 O2 Flow FiO2 Time Delivery Rate 09/26/18 98.4 62 18 136/66 96 07:32 (89) 09/24/18 Room Air 15:00 Intake and Output 09/25/18 09/25/18 09/26/18 1515:00 23:00 07:00 IntakeIntake Total 770 ml 350 ml OutputOutput Total 0 ml BalanceBalance 770 ml 350 ml Results Result Diagram: 09/24/18 0430 09/26/18 0459 Results 24hrs Laboratory Tests Test 09/25/18 11:50 09/25/18 17:23 09/25/18 21:20 09/26/18 04:59 Bedside Glucose 110 118 138 Sodium Level 131 L Potassium Level 5.6 H Chloride Level 89 L Carbon Dioxide Level 21 Anion Gap 21 H Blood Urea Nitrogen 89 H Creatinine 11.36 H Est Glomerular Filtrat 5 L Rate mL/min Glucose Level 95 Calcium Level 6.4 L Medications Medication Current Medications Heparin Sodium (Porcine) (Heparin (1000 Units/ml)) 4,000 unit AFTER DIALYSIS CATHETER Last administered on 09/23/18at 18:30; Admin Dose 4,000 UNIT; Start 09/19/18 at 07:30 Mannitol 50 ml @ 50 mls/5 min WITH DIALYSIS PRN IV DISEQUILIBRIUM SYNDROME PPX; Start 09/19/18 at 07:30 Albumin Human 100 ml @ 100 mls/hr WITH DIALYSIS PRN IV SBP <90 DURING DIALYSIS; Start 09/19/18 at 07:30 Sodium Chloride (NS) -To prime the dialy... DIRECTED FOR HD PRN IV HD; Start 09/19/18 at 07:30 Acetaminophen (Tylenol Tab) 650 mg Q6 PRN PO .MILD PAIN 1-3 OR TEMP; Start 09/19/18 at 10:30 Ondansetron HCl (Zofran Inj) 4 mg Q4 PRN IV NAUSEA/VOMITING Last administered on 09/22/18at 21:11; Admin Dose 4 MG; Start 09/19/18 at 10:30 Diagnostic Test (Pha) (Accu-Chek) 1 ea 02 XX Last administered on 09/24/18at 01:19; Admin Dose 1 EA; Start 09/20/18 at 02:00 Insulin Aspart (Novolog Insulin Pen) NOVOLOG *MILD* ALGORITHM WITH MEALS BEDTIME SC Last administered on 09/22/18at 17:21; Admin Dose 1 UNIT; Start 09/19/18 at 11:30 Miscellaneous Information 1 ea NOTE XX ; Start 09/19/18 at 11:00 Glucose (Glutose) 15 gm Q15M PRN PO DECREASED GLUCOSE; Start 09/19/18 at 11:00 Glucose (Glutose) 22.5 gm Q15M PRN PO DECREASED GLUCOSE; Start 09/19/18 at 11:00 Dextrose (D50w Syringe) 25 ml Q15M PRN IV DECREASED GLUCOSE; Start 09/19/18 at 11:00 Dextrose (D50w Syringe) 50 ml Q15M PRN IV DECREASED GLUCOSE; Start 09/19/18 at 11:00 Glucagon (Glucagen) 1 mg Q15M PRN IM DECREASED GLUCOSE; Start 09/19/18 at 11:00 Glucose (Glutose) 15 gm Q15M PRN BUCCAL DECREASED GLUCOSE; Start 09/19/18 at 11:00 Famotidine (Pepcid) 20 mg DAILY PO Last administered on 09/25/18 09:35; Admin Dose 20 MG; Start 09/19/18 at 13:00 Nifedipine (Procardia Xl) 60 mg BID PO Last administered on 09/25/18 09:34; Admin Dose 60 MG; Start 09/19/18 at 12:30 Sevelamer Carbonate (Renvela) 0.8 gm WITH MEALS PO Last administered on 09/25/18 17:25; Admin Dose 0.8 GM; Start 09/19/18 at 17:35 Tamsulosin HCl (Flomax) 0.4 mg DAILY PO Last administered on 09/25/18 09:35; Admin Dose 0.4 MG; Start 09/19/18 at 12:30 Minoxidil (Loniten) 5 mg BID PO Last administered on 09/25/18 09:34; Admin Dose 5 MG; Start 09/19/18 at 13:30 Metoclopramide HCl (Reglan) 5 mg Q6 IV Last administered on 09/25/18 17:25; Admin Dose 5 MG; Start 09/20/18 at 00:00 Eye Lubricant (Artificial Tears Oph) 2 drop QID BOTH EYES Last administered on 09/25/18 21:22; Admin Dose 2 DROP; Start 09/20/18 at 20:00 Piperacillin Sod/ Tazobactam Sod 50 ml @ 100 mls/hr Q8 IVPB Last administered on 09/26/18 05:50; Admin Dose 100 MLS/HR; Start 09/21/18 at 18:00 Nitroglycerin (Nitroglycerin 0.2 Mg/Hr) 1 patch DAILY TRANSDERM Last administered on 09/25/18 09:39; Admin Dose 1 PATCH; Start 09/22/18 at 11:30 Clonidine (Catapres) 0.2 mg TID PO Last administered on 09/25/18 21:21; Admin Dose 0.2 MG; Start 09/23/18 at 09:00 Labetalol HCl (Normodyne) 400 mg BID PO Last administered on 09/25/18 09:36; Admin Dose 400 MG; Start 09/23/18 at 13:30 Clonidine (Catapres) 0.1 mg Q4H PRN NGT SBP > 170; Start 09/23/18 at 13:30 Guaifenesin/ Dextromethorphan (Robitussin Dm Liquid Cup) 10 ml Q6 PRN PO COUGH Last administered on 09/25/18at 21:39; Admin Dose 10 ML; Start 09/23/18 at 13:30 Patient Own Medication 1 ea BID LEFT EYE Last administered on 09/25/18at 21:22; Admin Dose 1 EA; Start 09/23/18 at 21:00 TERI HALL Sep 26, 2018 08:07
[2018-09-26] MEDS ORDERED: NA POLYST SULFON 15 GM/60 ML BTL PO ONE (08:30)
[2018-09-26] MEDS: SEVELAMER CARBONATE 0.8 GM PKT PO SCH ×3 (08:52→17:26)
[2018-09-26] MEDS: FAMOTIDINE 20 MG TAB PO SCH (08:53)
[2018-09-26] MEDS: ATROPINE SULFATE 1% LEFT EYE SCH ×2 (08:53→20:48)
[2018-09-26] MEDS: TAMSULOSIN (SR) 0.4 MG CAP PO SCH (08:53)
[2018-09-26] MEDS: ARTIFICIAL TEARS 15 ML OPH BOTH EYES SCH ×4 (08:53→20:48)
[2018-09-26] MEDS: NITROGLYCERIN 0.2 MG/HR PATCH TRANSDERM SCH (08:54)
[2018-09-26] MEDS: NIFEdipine (XL) 60 MG TAB PO SCH ×2 (08:55→20:46)
[2018-09-26] MEDS: LABETALOL 200 MG TAB PO SCH ×2 (08:55→20:47)
[2018-09-26] MEDS: MINOXIDIL 2.5 MG TAB PO SCH ×2 (08:56→20:48)
--- NOTE | 2018-09-26 10:47 | CONS ---
Consult Date/Type/Reason Admit Date/Time Sep 19, 2018 at 06:33 Initial Consult Date 09/23/18 Type of Consult Pulmonary Requesting Provider: COREY SARAVIA Date/Time of Note DATE: 09/26/18 TIME: 10:46 Subjective Patient comfortable this morning no respiratory distress Objective Vital Signs Date Temp Pulse Resp B/P (MAP) Pulse Ox O2 O2 Flow FiO2 Time Delivery Rate 09/26/18 98.4 62 18 136/66 96 07:32 (89) 09/24/18 Room Air 15:00 Intake and Output 09/25/18 09/25/18 09/26/18 1515:00 23:00 07:00 IntakeIntake Total 770 ml 350 ml OutputOutput Total 0 ml BalanceBalance 770 ml 350 ml Exam GENERAL: VITAL SIGNS: per chart NECK: Supple. No JVD or lymphadenopathy. CARDIAC EXAM: S1, S2. No added sounds or murmurs. CHEST: clear bilaterally, No added sounds, rales or wheezes ABDOMEN: Soft, nontender. No guarding or rebound. EXTREMITIES: No cyanosis, clubbing or edema. NEUROLOGIC: Generalized weakness. No focal deficits. Vent Setting Fraction of Inspired Oxygen pe: 21 Results/Medications Result Diagram: 09/24/18 0430 09/26/18 0459 Results 24 hrs Laboratory Tests Test 09/25/18 11:50 09/25/18 17:23 09/25/18 21:20 09/26/18 04:59 Bedside Glucose 110 118 138 Sodium Level 131 L Potassium Level 5.6 H Chloride Level 89 L Carbon Dioxide Level 21 Anion Gap 21 H Blood Urea Nitrogen 89 H Creatinine 11.36 H Est Glomerular Filtrat 5 L Rate mL/min Glucose Level 95 Calcium Level 6.4 L Test 09/26/18 08:04 Bedside Glucose 124 Medications Current Medications Heparin Sodium (Porcine) (Heparin (1000 Units/ml)) 4,000 unit AFTER DIALYSIS CATHETER Last administered on 09/23/18at 18:30; Admin Dose 4,000 UNIT; Start 09/19/18 at 07:30 Mannitol 50 ml @ 50 mls/5 min WITH DIALYSIS PRN IV DISEQUILIBRIUM SYNDROME PPX; Start 09/19/18 at 07:30 Albumin Human 100 ml @ 100 mls/hr WITH DIALYSIS PRN IV SBP <90 DURING DIALYSIS; Start 09/19/18 at 07:30 Sodium Chloride (NS) -To prime the dialy... DIRECTED FOR HD PRN IV HD; Start 09/19/18 at 07:30 Acetaminophen (Tylenol Tab) 650 mg Q6 PRN PO .MILD PAIN 1-3 OR TEMP; Start 09/19/18 at 10:30 Ondansetron HCl (Zofran Inj) 4 mg Q4 PRN IV NAUSEA/VOMITING Last administered on 09/22/18at 21:11; Admin Dose 4 MG; Start 09/19/18 at 10:30 Diagnostic Test (Pha) (Accu-Chek) 1 ea 02 XX Last administered on 09/24/18at 01:19; Admin Dose 1 EA; Start 09/20/18 at 02:00 Insulin Aspart (Novolog Insulin Pen) NOVOLOG *MILD* ALGORITHM WITH MEALS BEDTIME SC Last administered on 09/22/18at 17:21; Admin Dose 1 UNIT; Start 09/19/18 at 11:30 Miscellaneous Information 1 ea NOTE XX ; Start 09/19/18 at 11:00 Glucose (Glutose) 15 gm Q15M PRN PO DECREASED GLUCOSE; Start 09/19/18 at 11:00 Glucose (Glutose) 22.5 gm Q15M PRN PO DECREASED GLUCOSE; Start 09/19/18 at 11:00 Dextrose (D50w Syringe) 25 ml Q15M PRN IV DECREASED GLUCOSE; Start 09/19/18 at 11:00 Dextrose (D50w Syringe) 50 ml Q15M PRN IV DECREASED GLUCOSE; Start 09/19/18 at 11:00 Glucagon (Glucagen) 1 mg Q15M PRN IM DECREASED GLUCOSE; Start 09/19/18 at 11:00 Glucose (Glutose) 15 gm Q15M PRN BUCCAL DECREASED GLUCOSE; Start 09/19/18 at 11:00 Famotidine (Pepcid) 20 mg DAILY PO Last administered on 09/26/18 08:53; Admin Dose 20 MG; Start 09/19/18 at 13:00 Nifedipine (Procardia Xl) 60 mg BID PO Last administered on 09/26/18at 08:55; Admin Dose 60 MG; Start 09/19/18 at 12:30 Sevelamer Carbonate (Renvela) 0.8 gm WITH MEALS PO Last administered on 09/26/18at 08:52; Admin Dose 0.8 GM; Start 09/19/18 at 17:35 Tamsulosin HCl (Flomax) 0.4 mg DAILY PO Last administered on 09/26/18 08:53; Admin Dose 0.4 MG; Start 09/19/18 at 12:30 Minoxidil (Loniten) 5 mg BID PO Last administered on 09/26/18 08:56; Admin Dose 5 MG; Start 09/19/18 at 13:30 Metoclopramide HCl (Reglan) 5 mg Q6 IV Last administered on 09/25/18 17:25; Admin Dose 5 MG; Start 09/20/18 at 00:00 Eye Lubricant (Artificial Tears Oph) 2 drop QID BOTH EYES Last administered on 09/26/18 08:53; Admin Dose 2 DROP; Start 09/20/18 at 20:00 Piperacillin Sod/ Tazobactam Sod 50 ml @ 100 mls/hr Q8 IVPB Last administered on 09/26/18 05:50; Admin Dose 100 MLS/HR; Start 09/21/18 at 18:00 Nitroglycerin (Nitroglycerin 0.2 Mg/Hr) 1 patch DAILY TRANSDERM Last administered on 09/26/18 08:54; Admin Dose 1 PATCH; Start 09/22/18 at 11:30 Clonidine (Catapres) 0.2 mg TID PO Last administered on 09/26/18 08:55; Admin Dose 0.2 MG; Start 09/23/18 at 09:00 Labetalol HCl (Normodyne) 400 mg BID PO Last administered on 09/26/18 08:55; Admin Dose 400 MG; Start 09/23/18 at 13:30 Clonidine (Catapres) 0.1 mg Q4H PRN NGT SBP > 170; Start 09/23/18 at 13:30 Guaifenesin/ Dextromethorphan (Robitussin Dm Liquid Cup) 10 ml Q6 PRN PO COUGH Last administered on 09/25/18 21:39; Admin Dose 10 ML; Start 09/23/18 at 13:30 Patient Own Medication 1 ea BID LEFT EYE Last administered on 09/26/18 08:53; Admin Dose 1 EA; Start 09/23/18 at 21:00 Assessment/Plan Hospital Course (Demo Recall) Assessment/Plan (Daily) IMP: 1. HTN emergency--improved 2. Hyperkalemia 3. CKD on HD 4. Volume overload--on HD/UF 5. Anemia 6. RLL pleural -based lesions RECS: 1. Continue to optimize BP 2. Continue HD/UF 3. Send TB Quant Gold and cocci serologies NORMA RASMUSSEN MD, FCCP Sep 26, 2018 10:47
[2018-09-26] MEDS: GUAIFENESIN/DM 5ML CUP PO PRN (11:49)
--- NOTE | 2018-09-26 15:08 | PN ---
Date/Time of Note Date/Time of Note DATE: 09/26/18 TIME: 15:05 Assessment/Plan VTE Prophylaxis Risk score (from Nsg)>0 risk: 1 SCD applied (from Nsg): Yes Pharmacological prophylaxis: NA/contraindicated Pharm contraindication: bleeding Lines/Catheters IV Catheter Type (from Nrsg): Permacath Urinary Cath still in place: No Assessment/Plan Hospital Course Patient is undergoing hemodialysis, status post Kayexalate for hyperkalemia, blood pressure is better controlled, continue to monitor on telemetry floor. Assessment/Plan - Hypertensive emergency, s/p nitroglycerin drip, Continue labetalol call, minoxidil and Procardia. - Hyperkalemia, resolved s/p emergent hemodialysis, Dr. Ortez is following in nephrology consultation. - Abdominal pain most likely secondary to gastritis versus PUD, abdominal ultrasound notable for distended gallbladder with marked wall thickening. Continue PPI and Reglan. Dr. Winkler is following in GI consultation. - Possible cholecystitis, continue Zosyn - LLL mass decreased with pleural consolidation increased in volume per recent CT. Dr Mueller is following in pulmonology consultation. - HTN - DM - CAD, Hx of CABG - ESRD on HD - Legal blindness. No acute issue. - MRSA of nares colonization Further recommendations based on clinical course. Plan of care discussed with Dr. Reagan. Result Diagram: 09/24/18 0430 09/26/18 0459 Results 24hrs Laboratory Tests Test 09/25/18 17:23 09/25/18 21:20 09/26/18 04:59 09/26/18 08:04 Bedside Glucose 118 138 124 Sodium Level 131 L Potassium Level 5.6 H Chloride Level 89 L Carbon Dioxide Level 21 Anion Gap 21 H Blood Urea Nitrogen 89 H Creatinine 11.36 H Est Glomerular Filtrat 5 L Rate mL/min Glucose Level 95 Calcium Level 6.4 L Test 09/26/18 11:48 Bedside Glucose 121 Exam/Review of Systems Exam Vitals Vital Signs Date Temp Pulse Resp B/P (MAP) Pulse Ox O2 O2 Flow FiO2 Time Delivery Rate 09/26/18 63 12:01 09/26/18 97.8 17 150/72 97 11:48 (98) 09/24/18 Room Air 15:00 Intake and Output 09/25/18 09/25/18 09/26/18 1515:00 23:00 07:00 IntakeIntake Total 770 ml 350 ml OutputOutput Total 0 ml BalanceBalance 770 ml 350 ml Exam Constitutional: alert, oriented ENMT: nl external ears & nose, blind Respiratory: clear to auscultation Cardiovascular: regular rate and rhythm Gastrointestinal: soft, non-tender Musculoskeletal: nl extremities to inspection Extremities: normal pulses Results Results 24hrs Laboratory Tests Test 09/25/18 17:23 09/25/18 21:20 09/26/18 04:59 09/26/18 08:04 Bedside Glucose 118 138 124 Sodium Level 131 L Potassium Level 5.6 H Chloride Level 89 L Carbon Dioxide Level 21 Anion Gap 21 H Blood Urea Nitrogen 89 H Creatinine 11.36 H Est Glomerular Filtrat 5 L Rate mL/min Glucose Level 95 Calcium Level 6.4 L Test 09/26/18 11:48 Bedside Glucose 121 Medications Medication Current Medications Heparin Sodium (Porcine) (Heparin (1000 Units/ml)) 4,000 unit AFTER DIALYSIS CATHETER Last administered on 09/23/18at 18:30; Admin Dose 4,000 UNIT; Start 09/19/18 at 07:30 Mannitol 50 ml @ 50 mls/5 min WITH DIALYSIS PRN IV DISEQUILIBRIUM SYNDROME PPX; Start 09/19/18 at 07:30 Albumin Human 100 ml @ 100 mls/hr WITH DIALYSIS PRN IV SBP <90 DURING DIAL YSIS; Start 09/19/18 at 07:30 Sodium Chloride (NS) -To prime the dialy... DIRECTED FOR HD PRN IV HD; Start 09/19/18 at 07:30 Acetaminophen (Tylenol Tab) 650 mg Q6 PRN PO .MILD PAIN 1-3 OR TEMP; Start 09/19/18 at 10:30 Ondansetron HCl (Zofran Inj) 4 mg Q4 PRN IV NAUSEA/VOMITING Last administered on 09/22/18at 21:11; Admin Dose 4 MG; Start 09/19/18 at 10:30 Diagnostic Test (Pha) (Accu-Chek) 1 ea 02 XX Last administered on 09/24/18at 01:19; Admin Dose 1 EA; Start 09/20/18 at 02:00 Insulin Aspart (Novolog Insulin Pen) NOVOLOG *MILD* ALGORITHM WITH MEALS BEDTIME SC Last administered on 09/22/18at 17:21; Admin Dose 1 UNIT; Start 09/19/18 at 11:30 Miscellaneous Information 1 ea NOTE XX ; Start 09/19/18 at 11:00 Glucose (Glutose) 15 gm Q15M PRN PO DECREASED GLUCOSE; Start 09/19/18 at 11:00 Glucose (Glutose) 22.5 gm Q15M PRN PO DECREASED GLUCOSE; Start 09/19/18 at 11:00 Dextrose (D50w Syringe) 25 ml Q15M PRN IV DECREASED GLUCOSE; Start 09/19/18 at 11:00 Dextrose (D50w Syringe) 50 ml Q15M PRN IV DECREASED GLUCOSE; Start 09/19/18 at 11:00 Glucagon (Glucagen) 1 mg Q15M PRN IM DECREASED GLUCOSE; Start 09/19/18 at 11:00 Glucose (Glutose) 15 gm Q15M PRN BUCCAL DECREASED GLUCOSE; Start 09/19/18 at 11:00 Famotidine (Pepcid) 20 mg DAILY PO Last administered on 09/26/18 08:53; Admin Dose 20 MG; Start 09/19/18 at 13:00 Nifedipine (Procardia Xl) 60 mg BID PO Last administered on 09/26/18 08:55; Admin Dose 60 MG; Start 09/19/18 at 12:30 Sevelamer Carbonate (Renvela) 0.8 gm WITH MEALS PO Last administered on 09/26/18 11:49; Admin Dose 0.8 GM; Start 09/19/18 at 17:35 Tamsulosin HCl (Flomax) 0.4 mg DAILY PO Last administered on 09/26/18 08:53; Admin Dose 0.4 MG; Start 09/19/18 at 12:30 Minoxidil (Loniten) 5 mg BID PO Last administered on 09/26/18 08:56; Admin Dose 5 MG; Start 09/19/18 at 13:30 Metoclopramide HCl (Reglan) 5 mg Q6 IV Last administered on 09/26/18 11:49; Admin Dose 5 MG; Start 09/20/18 at 00:00 Eye Lubricant (Artificial Tears Oph) 2 drop QID BOTH EYES Last administered on 09/26/18 13:06; Admin Dose 2 DROP; Start 09/20/18 at 20:00 Piperacillin Sod/ Tazobactam Sod 50 ml @ 100 mls/hr Q8 IVPB Last administered on 09/26/18 05:50; Admin Dose 100 MLS/HR; Start 09/21/18 at 18:00 Nitroglycerin (Nitroglycerin 0.2 Mg/Hr) 1 patch DAILY TRANSDERM Last administered on 09/26/18 08:54; Admin Dose 1 PATCH; Start 09/22/18 at 11:30 Clonidine (Catapres) 0.2 mg TID PO Last administered on 09/26/18 08:55; Admin Dose 0.2 MG; Start 09/23/18 at 09:00 Labetalol HCl (Normodyne) 400 mg BID PO Last administered on 09/26/18 08:55; Admin Dose 400 MG; Start 09/23/18 at 13:30 Clonidine (Catapres) 0.1 mg Q4H PRN NGT SBP > 170; Start 09/23/18 at 13:30 Guaifenesin/ Dextromethorphan (Robitussin Dm Liquid Cup) 10 ml Q6 PRN PO COUGH Last administered on 09/26/18 11:49; Admin Dose 10 ML; Start 09/23/18 at 13:30 Patient Own Medication 1 ea BID LEFT EYE Last administered on 09/26/18 08:53; Admin Dose 1 EA; Start 09/23/18 at 21:00 MARGARITO DAMICO Sep 26, 2018 15:08
--- NOTE | 2018-09-26 15:28 | CONS ---
Consult Date/Type/Reason Admit Date/Time Sep 19, 2018 at 06:33 Initial Consult Date 09/23/18 Type of Consultation: cv Requesting Provider: COREY SARAVIA Date/Time of Note DATE: 09/26/18 TIME: 15:26 Subjective Interventional cardiology follow-up progress note Subjective: Discussed with the staff. Discussed with family. Telemetry was reviewed. Patient with no chest pain or pressure no palpitation no shortness of breath now. His blood pressure has improved. Objective: General: no acute distress HEENT: NC/AT. pupils are equal. round. NECK: . no stridor. CV: RRR. systolic murmur; no gallop or rubs. PULM: no wheezing or rhonchi. GI: SOFT, NT, ND, no rebound or guarding Extremity: trace B/L LE edema. no clubbing. neuro: awake and alert, Psych: calm and pleasant rectal: deferred : normal Objective Vitals Vital Signs Date Temp Pulse Resp B/P (MAP) Pulse Ox O2 O2 Flow FiO2 Time Delivery Rate 09/26/18 63 12:01 09/26/18 97.8 17 150/72 97 11:48 (98) 09/24/18 Room Air 15:00 Intake and Output 09/25/18 09/25/18 09/26/18 1414:59 22:59 06:59 IntakeIntake Total 770 ml 350 ml OutputOutput Total 0 ml BalanceBalance 770 ml 350 ml Results/Medications Result Diagram: 09/24/18 0430 09/26/18 0459 Results 24 hrs Laboratory Tests Test 09/25/18 17:23 09/25/18 21:20 09/26/18 04:59 09/26/18 08:04 Bedside Glucose 118 138 124 Sodium Level 131 L Potassium Level 5.6 H Chloride Level 89 L Carbon Dioxide Level 21 Anion Gap 21 H Blood Urea Nitrogen 89 H Creatinine 11.36 H Est Glomerular Filtrat 5 L Rate mL/min Glucose Level 95 Calcium Level 6.4 L Test 09/26/18 11:48 Bedside Glucose 121 Home Meds Active Scripts Nifedipine (Procardia Xl) 60 Mg Tab.er.24, 60 MG PO BID for 30 Days, TAB Prov:MARGARITO DAMICO 08/25/18 Minoxidil* (Lonitin*) 2.5 Mg Tab, 5 MG PO BID for 30 Days, TAB Prov:MARGARITO DAMICO 08/25/18 Labetalol Hcl* (Labetalol Hcl*) 200 Mg Tablet, 400 MG PO BID for 30 Days, TAB Prov:MARGARITO DAMICO 08/25/18 Reported Medications Isosorbide Mononitrate* (Isosorbide Mononitrate*) 60 Mg Tab.er.24h, 60 MG PO D AILY, TAB 08/15/18 Losartan Potassium* (Losartan Potassium*) 50 Mg Tablet, 50 MG PO DAILY, TAB 08/15/18 Famotidine* (Famotidine*) 20 Mg Tablet, 20 MG PO BID, #60 TAB 08/15/18 Atropine Sulfate/0.9 %Sod Chlr (Atropine 0.01%-Ns Eye Drops) 10 Ml Drops, 15 ML OP BID, BOTTLE 08/15/18 Tamsulosin Hcl* (Tamsulosin Hcl*) 0.4 Mg Cap.er.24h, 0.4 MG PO DAILY, CAP 08/15/18 Clonidine Hcl* (Clonidine Hcl*) 0.1 Mg Tab, 0.2 MG PO BID PRN for ELEVATED BLOOD PRESSURE, TAB 08/15/18 Sevelamer Carbonate* (Renvela*) 800 Mg Tablet, 0.8 GM PO WITH MEALS, TAB 08/15/18 Medications Current Medications Heparin Sodium (Porcine) (Heparin (1000 Units/ml)) 4,000 unit AFTER DIALYSIS CATHETER Last administered on 09/23/18at 18:30; Admin Dose 4,000 UNIT; Start 09/19/18 at 07:30 Mannitol 50 ml @ 50 mls/5 min WITH DIALYSIS PRN IV DISEQUILIBRIUM SYNDROME PPX; Start 09/19/18 at 07:30 Albumin Human 100 ml @ 100 mls/hr WITH DIALYSIS PRN IV SBP <90 DURING DIAL YSIS; Start 09/19/18 at 07:30 Sodium Chloride (NS) -To prime the dialy... DIRECTED FOR HD PRN IV HD; Start 09/19/18 at 07:30 Acetaminophen (Tylenol Tab) 650 mg Q6 PRN PO .MILD PAIN 1-3 OR TEMP; Start 09/19/18 at 10:30 Ondansetron HCl (Zofran Inj) 4 mg Q4 PRN IV NAUSEA/VOMITING Last administered on 09/22/18at 21:11; Admin Dose 4 MG; Start 09/19/18 at 10:30 Diagnostic Test (Pha) (Accu-Chek) 1 ea 02 XX Last administered on 09/24/18at 01:19; Admin Dose 1 EA; Start 09/20/18 at 02:00 Insulin Aspart (Novolog Insulin Pen) NOVOLOG *MILD* ALGORITHM WITH MEALS BEDTIME SC Last administered on 09/22/18 17:21; Admin Dose 1 UNIT; Start 09/19/18 at 11:30 Miscellaneous Information 1 ea NOTE XX ; Start 09/19/18 at 11:00 Glucose (Glutose) 15 gm Q15M PRN PO DECREASED GLUCOSE; Start 09/19/18 at 11:00 Glucose (Glutose) 22.5 gm Q15M PRN PO DECREASED GLUCOSE; Start 09/19/18 at 11:00 Dextrose (D50w Syringe) 25 ml Q15M PRN IV DECREASED GLUCOSE; Start 09/19/18 at 11:00 Dextrose (D50w Syringe) 50 ml Q15M PRN IV DECREASED GLUCOSE; Start 09/19/18 at 11:00 Glucagon (Glucagen) 1 mg Q15M PRN IM DECREASED GLUCOSE; Start 09/19/18 at 11:00 Glucose (Glutose) 15 gm Q15M PRN BUCCAL DECREASED GLUCOSE; Start 09/19/18 at 11:00 Famotidine (Pepcid) 20 mg DAILY PO Last administered on 09/26/18 08:53; Admin Dose 20 MG; Start 09/19/18 at 13:00 Nifedipine (Procardia Xl) 60 mg BID PO Last administered on 09/26/18 08:55; Admin Dose 60 MG; Start 09/19/18 at 12:30 Sevelamer Carbonate (Renvela) 0.8 gm WITH MEALS PO Last administered on 09/26/18 11:49; Admin Dose 0.8 GM; Start 09/19/18 at 17:35 Tamsulosin HCl (Flomax) 0.4 mg DAILY PO Last administered on 09/26/18 08:53; Admin Dose 0.4 MG; Start 09/19/18 at 12:30 Minoxidil (Loniten) 5 mg BID PO Last administered on 09/26/18 08:56; Admin Dose 5 MG; Start 09/19/18 at 13:30 Metoclopramide HCl (Reglan) 5 mg Q6 IV Last administered on 09/26/18 11:49; Admin Dose 5 MG; Start 09/20/18 at 00:00 Eye Lubricant (Artificial Tears Oph) 2 drop QID BOTH EYES Last administered on 09/26/18 13:06; Admin Dose 2 DROP; Start 09/20/18 at 20:00 Piperacillin Sod/ Tazobactam Sod 50 ml @ 100 mls/hr Q8 IVPB Last administered on 09/26/18 05:50; Admin Dose 100 MLS/HR; Start 09/21/18 at 18:00 Nitroglycerin (Nitroglycerin 0.2 Mg/Hr) 1 patch DAILY TRANSDERM Last administered on 09/26/18 08:54; Admin Dose 1 PATCH; Start 09/22/18 at 11:30 Clonidine (Catapres) 0.2 mg TID PO Last administered on 09/26/18 08:55; Admin Dose 0.2 MG; Start 09/23/18 at 09:00 Labetalol HCl (Normodyne) 400 mg BID PO Last administered on 09/26/18 08:55; Admin Dose 400 MG; Start 09/23/18 at 13:30 Clonidine (Catapres) 0.1 mg Q4H PRN NGT SBP > 170; Start 09/23/18 at 13:30 Guaifenesin/ Dextromethorphan (Robitussin Dm Liquid Cup) 10 ml Q6 PRN PO COUGH Last administered on 09/26/18 11:49; Admin Dose 10 ML; Start 09/23/18 at 13:30 Patient Own Medication 1 ea BID LEFT EYE Last administered on 09/26/18 08:53; Admin Dose 1 EA; Start 09/23/18 at 21:00 Assessment/Plan Hospital Course (Demo Recall) 1. Hypertensive urgency/resistant hypertension: improved now 2. History of coronary artery disease 3. 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 Renal failure on dialysis 5. Pulmonary vascular congestion/fluid overload 6. Diabetes 7. Dyslipidemia 8. Hyperkalemia 9. Pulmonary nodule 10. severe hyper K: corrected with 11. Pneumonia recently treated with abx Recommendations: Continue with the Procardia. cont labetalol Continue with minoxidil Clonidine will be continued as a as needed as well. Lipid panel reviewed and showed LDL at goal of less than 70 Hemodialysis as per renal Thank you for his referral. We will continue to follow along with you NAHUN RUSSELL MD [facility] NAHUN RUSSELL MD Sep 26, 2018 15:28
[2018-09-26] MEDS: HEPARIN 1000 UNITS/ML 10 ML INJ CATHETER SCH (16:11)
--- NOTE | 2018-09-26 16:11 | CONS ---
Assessment/Plan Assessment/Plan Assessment/Plan (Daily) 1. acute hyperkalemia - Improved 2. Hypertensive emergency on NTG drip 3. ESRD on HD MWF with acute hyperklaemia and acute fluid overload 4. Possible Cholecysitits 5. H/o CAD s/p CABG 6. H/O HTN 7. H/o HL 8. H/o DM II Plan: s/p HD today - 2.8 L removed, -will keep pt on MWF schedule Nifedipine 60mg pO BID with Minoxidil 5 mg BID, clonindine prn IV hydralazine pnr GI following, on PPI will follow up will follow up Consultation Date/Type/Reason Admit Date/Time Sep 19, 2018 at 06:33 Initial Consult Date 09/19/18 Type of Consult NEPHROLOGY Requesting Provider: COREY SARAVIA Date/Time of Note DATE: 09/26/18 TIME: 16:11 24 HR Interval Summary Free Text/Dictation plan for HD today, afebrile, BP stable Exam/Review of Systems Exam Vitals Vital Signs Date Temp Pulse Resp B/P (MAP) Pulse Ox O2 O2 Flow FiO2 Time Delivery Rate 09/26/18 97.5 63 18 159/72 98 15:43 (101) 09/26/18 Room Air 12:30 Intake and Output 09/25/18 09/25/18 09/26/18 1515:00 23:00 07:00 IntakeIntake Total 770 ml 350 ml OutputOutput Total 0 ml BalanceBalance 770 ml 350 ml Exam Constitutional: alert, distress Respiratory: clear to auscultation, normal air movement, diminished breath sounds Cardiovascular: regular rate and rhythm, nl pulses Gastrointestinal: soft, non-tender, tender (RUQ) Musculoskeletal: nl extremities to inspection, other Extremities: normal pulses, other (Chest permacath HD catheter ) 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: INS[employer] SALES II-XII intact, nl mental status, nl speech, nl strength Results Result Diagram: 09/24/18 0430 09/26/18 0459 Results 24hrs Laboratory Tests Test 09/25/18 17:23 09/25/18 21:20 09/26/18 04:59 09/26/18 08:04 Bedside Glucose 118 138 124 Sodium Level 131 L Potassium Level 5.6 H Chloride Level 89 L Carbon Dioxide Level 21 Anion Gap 21 H Blood Urea Nitrogen 89 H Creatinine 11.36 H Est Glomerular Filtrat 5 L Rate mL/min Glucose Level 95 Calcium Level 6.4 L Test 09/26/18 11:48 Bedside Glucose 121 Medications Medication Current Medications Heparin Sodium (Porcine) (Heparin (1000 Units/ml)) 4,000 unit AFTER DIALYSIS CATHETER Last administered on 09/23/18at 18:30; Admin Dose 4,000 UNIT; Start 09/19/18 at 07:30 Mannitol 50 ml @ 50 mls/5 min WITH DIALYSIS PRN IV DISEQUILIBRIUM SYNDROME PPX; Start 09/19/18 at 07:30 Albumin Human 100 ml @ 100 mls/hr WITH DIALYSIS PRN IV SBP <90 DURING DIALYSIS; Start 09/19/18 at 07:30 Sodium Chloride (NS) -To prime the dialy... DIRECTED FOR HD PRN IV HD; Start 09/19/18 at 07:30 Acetaminophen (Tylenol Tab) 650 mg Q6 PRN PO .MILD PAIN 1-3 OR TEMP; Start 09/19/18 at 10:30 Ondansetron HCl (Zofran Inj) 4 mg Q4 PRN IV NAUSEA/VOMITING Last administered on 09/22/18at 21:11; Admin Dose 4 MG; Start 09/19/18 at 10:30 Diagnostic Test (Pha) (Accu-Chek) 1 ea 02 XX Last administered on 09/24/18at 01:19; Admin Dose 1 EA; Start 09/20/18 at 02:00 Insulin Aspart (Novolog Insulin Pen) NOVOLOG *MILD* ALGORITHM WITH MEALS BEDTIME SC Last administered on 09/22/18at 17:21; Admin Dose 1 UNIT; Start 09/19/18 at 11:30 Miscellaneous Information 1 ea NOTE XX ; Start 09/19/18 at 11:00 Glucose (Glutose) 15 gm Q15M PRN PO DECREASED GLUCOSE; Start 09/19/18 at 11:00 Glucose (Glutose) 22.5 gm Q15M PRN PO DECREASED GLUCOSE; Start 09/19/18 at 11:00 Dextrose (D50w Syringe) 25 ml Q15M PRN IV DECREASED GLUCOSE; Start 09/19/18 at 11:00 Dextrose (D50w Syringe) 50 ml Q15M PRN IV DECREASED GLUCOSE; Start 09/19/18 at 11:00 Glucagon (Glucagen) 1 mg Q15M PRN IM DECREASED GLUCOSE; Start 09/19/18 at 11:00 Glucose (Glutose) 15 gm Q15M PRN BUCCAL DECREASED GLUCOSE; Start 09/19/18 at 11:00 Famotidine (Pepcid) 20 mg DAILY PO Last administered on 09/26/18 08:53; Admin Dose 20 MG; Start 09/19/18 at 13:00 Nifedipine (Procardia Xl) 60 mg BID PO Last administered on 09/26/18 08:55; Admin Dose 60 MG; Start 09/19/18 at 12:30 Sevelamer Carbonate (Renvela) 0.8 gm WITH MEALS PO Last administered on 09/26/18 11:49; Admin Dose 0.8 GM; Start 09/19/18 at 17:35 Tamsulosin HCl (Flomax) 0.4 mg DAILY PO Last administered on 09/26/18 08:53; Admin Dose 0.4 MG; Start 09/19/18 at 12:30 Minoxidil (Loniten) 5 mg BID PO Last administered on 09/26/18 08:56; Admin Dose 5 MG; Start 09/19/18 at 13:30 Metoclopramide HCl (Reglan) 5 mg Q6 IV Last administered on 09/26/18 11:49; Ad min Dose 5 MG; Start 09/20/18 at 00:00 Eye Lubricant (Artificial Tears Oph) 2 drop QID BOTH EYES Last administered on 09/26/18 13:06; Admin Dose 2 DROP; Start 09/20/18 at 20:00 Piperacillin Sod/ Tazobactam Sod 50 ml @ 100 mls/hr Q8 IVPB Last administered on 09/26/18 05:50; Admin Dose 100 MLS/HR; Start 09/21/18 at 18:00 Nitroglycerin (Nitroglycerin 0.2 Mg/Hr) 1 patch DAILY TRANSDERM Last administe red on 09/26/18 08:54; Admin Dose 1 PATCH; Start 09/22/18 at 11:30 Clonidine (Catapres) 0.2 mg TID PO Last administered on 09/26/18 08:55; Admin Dose 0.2 MG; Start 09/23/18 at 09:00 Labetalol HCl (Normodyne) 400 mg BID PO Last administered on 4/8/19at 08:55; Admin Dose 400 MG; Start 09/23/18 at 13:30 Clonidine (Catapres) 0.1 mg Q4H PRN NGT SBP > 170; Start 09/23/18 at 13:30 Guaifenesin/ Dextromethorphan (Robitussin Dm Liquid Cup) 10 ml Q6 PRN PO COUGH Last administered on 09/26/18at 11:49; Admin Dose 10 ML; Start 09/23/18 at 13:30 Patient Own Medication 1 ea BID LEFT EYE Last administered on 09/26/18at 08:53; Admin Dose 1 EA; Start 09/23/18 at 21:00 VALERIA RODRÍGUEZ MD Sep 26, 2018 16:11
[2018-09-27] VITALS (10 sets, daily range): BP systolic 132–165; BP diastolic 64–83; PULSE 60–106; RESP 17–18
[2018-09-27] MEDS: ACCU-CHEK XX SCH ×2 (01:17→20:14)
[2018-09-27] MEDS: METOCLOPRAMIDE 10 MG INJ IV SCH ×4 (05:25→23:08)
[2018-09-27] MEDS: PIPER-TAZO 2.25 GM (PMX) 50 ML IVPB SCH ×3 (05:25→22:29)
[2018-09-27] MEDS: INSULIN ASPART [NOVOLOG] 3 ML PEN SC SCH ×4 (08:00→20:14)
--- NOTE | 2018-09-27 08:47 | CONS ---
Assessment/Plan Assessment/Plan Hospital Course (Demo Recall) 57 yo male presented with hyperkalemia and hypertensive crisis Interval hx: Large BM yesterday. Denies N/v or any abdominal pain. Hgb stable. CBD measures 3.5mm wnl. 1. Abdominal pain with nausea and vomiting -resolved -gastritis v PUD v cholecystitis 2. Mild acute cholecystitis 3. RT lower lobe mass. 4. Hypertension crisis -resolved 5. Diabetes mellitus. 6. Coronary artery disease status post coronary artery bypass graft. 7. Legally blind. 8. 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 Hyperkalemia, for which he had emergent dialysis and was also medically treated. 10. Pancytopenia US of upper abd 09/19: 1. Diffuse gallbladder wall thickening and trace pericholecystic fluid, appearance may indicate acute cholecystitis, reactive inflammation or edema. 2. No gallstones identified. 3. Mildly atrophic right kidney, echogenic appearance consistent with chronic medical renal disease. HIDA negative for cholecystitis PLAN: Continue with PPI and Reglan Pt examined and plan of care discussed with Dr. Winkler Consultation Date/Type/Reason Admit Date/Time Sep 19, 2018 at 06:33 Initial Consult Date 09/19/18 Requesting Provider: COREY SARAVIA Date/Time of Note DATE: 09/27/18 TIME: 08:45 Exam/Review of Systems Exam Vitals Vital Signs Date Temp Pulse Resp B/P (MAP) Pulse Ox O2 O2 Flow FiO2 Time Delivery Rate 09/27/18 98.0 65 18 141/64 96 07:30 (89) 09/26/18 Room Air 12:30 Intake and Output 09/26/18 09/26/18 09/27/18 1414:59 22:59 06:59 IntakeIntake Total 850 ml 220 ml OutputOutput Total 200 ml 3400 ml BalanceBalance -200 ml -2550 ml 220 ml Constitutional: alert, oriented Psych: no complaints Head: normocephalic Eyes: nl sclera Respiratory: clear to auscultation, diminished breath sounds Cardiovascular: regular rate and rhythm Gastrointestinal: soft, non-tender Musculoskeletal: nl gait and stance 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: nl mental status, nl speech Results Result Diagram: 09/27/18 0444 09/27/184 Results 24hrs Laboratory Tests Test 09/26/18 11:48 09/26/18 17:25 09/26/18 20:45 09/27/18 04:44 Bedside Glucose 121 93 223 H White Blood Count 3.5 L Red Blood Count 3.35 L Hemoglobin 10.2 L Hematocrit 30.2 L Mean Corpuscular Volume 90.1 Mean Corpuscular 30.4 Hemoglobin Mean Corpuscular 33.8 Hemoglobin Concent Red Cell Distribution 12.9 Width Platelet Count 99 L Mean Platelet Volume 11.3 H Immature Granulocytes % 0.000 L Neutrophils % 51.9 Lymphocytes % 18.0 Monocytes % 10.4 Eosinophils % 19.1 H Basophils % 0.6 Nucleated Red Blood 0.0 Cells % Immature Granulocytes # 0.000 Neutrophils # 1.8 Lymphocytes # 0.6 L Monocytes # 0.4 Eosinophils # 0.7 H Basophils # 0.0 Nucleated Red Blood 0.0 Cells # Sodium Level 139 Potassium Level 4.6 Chloride Level 96 L Carbon Dioxide Level 26 Anion Gap 17 H Blood Urea Nitrogen 46 #H Creatinine 8.12 #H Est Glomerular Filtrat 7 L Rate mL/min Glucose Level 97 Calcium Level 7.4 L Test 09/27/18 08:08 Bedside Glucose 100 Medications Medication Current Medications Heparin Sodium (Porcine) (Heparin (1000 Units/ml)) 4,000 unit AFTER DIALYSIS CATHETER Last administered on 09/26/18at 16:11; Admin Dose 4,000 UNIT; Start 09/19/18 at 07:30 Mannitol 50 ml @ 50 mls/5 min WITH DIALYSIS PRN IV DISEQUILIBRIUM SYNDROME PPX; Start 09/19/18 at 07:30 Albumin Human 100 ml @ 100 mls/hr WITH DIALYSIS PRN IV SBP <90 DURING DIALYSIS; Start 09/19/18 at 07:30 Sodium Chloride (NS) -To prime the dialy... DIRECTED FOR HD PRN IV HD; Start 09/19/18 at 07:30 Acetaminophen (Tylenol Tab) 650 mg Q6 PRN PO .MILD PAIN 1-3 OR TEMP; Start 09/19/18 at 10:30 Ondansetron HCl (Zofran Inj) 4 mg Q4 PRN IV NAUSEA/VOMITING Last administered on 09/22/18at 21:11; Admin Dose 4 MG; Start 09/19/18 at 10:30 Diagnostic Test (Pha) (Accu-Chek) 1 ea 02 XX Last administered on 4/6/19at 01:19; Admin Dose 1 EA; Start 09/20/18 at 02:00 Insulin Aspart (Novolog Insulin Pen) NOVOLOG *MILD* ALGORITHM WITH MEALS BEDTIME SC Last administered on 09/26/18 20:58; Admin Dose 2 UNIT; Start 09/19/18 at 11:30 Miscellaneous Information 1 ea NOTE XX ; Start 09/19/18 at 11:00 Glucose (Glutose) 15 gm Q15M PRN PO DECREASED GLUCOSE; Start 09/19/18 at 11:00 Glucose (Glutose) 22.5 gm Q15M PRN PO DECREASED GLUCOSE; Start 09/19/18 at 11:00 Dextrose (D50w Syringe) 25 ml Q15M PRN IV DECREASED GLUCOSE; Start 09/19/18 at 11:00 Dextrose (D50w Syringe) 50 ml Q15M PRN IV DECREASED GLUCOSE; Start 09/19/18 at 11:00 Glucagon (Glucagen) 1 mg Q15M PRN IM DECREASED GLUCOSE; Start 09/19/18 at 11:00 Glucose (Glutose) 15 gm Q15M PRN BUCCAL DECREASED GLUCOSE; Start 09/19/18 at 11:00 Famotidine (Pepcid) 20 mg DAILY PO Last administered on 09/26/18 08:53; Admin Dose 20 MG; Start 09/19/18 at 13:00 Nifedipine (Procardia Xl) 60 mg BID PO Last administered on 09/26/18 20:46; Admin Dose 60 MG; Start 09/19/18 at 12:30 Sevelamer Carbonate (Renvela) 0.8 gm WITH MEALS PO Last administered on 09/26/18 17:26; Admin Dose 0.8 GM; Start 09/19/18 at 17:35 Tamsulosin HCl (Flomax) 0.4 mg DAILY PO Last administered on 09/26/18 08:53; Admin Dose 0.4 MG; Start 09/19/18 at 12:30 Minoxidil (Loniten) 5 mg BID PO Last administered on 09/26/18 20:48; Admin Dose 5 MG; Start 09/19/18 at 13:30 Metoclopramide HCl (Reglan) 5 mg Q6 IV Last administered on 09/27/18 05:25; Admin Dose 5 MG; Start 09/20/18 at 00:00 Eye Lubricant (Artificial Tears Oph) 2 drop QID BOTH EYES Last administered on 09/26/18 20:48; Admin Dose 2 DROP; Start 09/20/18 at 20:00 Piperacillin Sod/ Tazobactam Sod 50 ml @ 100 mls/hr Q8 IVPB Last administered on 09/27/18 05:25; Admin Dose 100 MLS/HR; Start 09/21/18 at 18:00 Nitroglycerin (Nitroglycerin 0.2 Mg/Hr) 1 patch DAILY TRANSDERM Last administered on 09/26/18 08:54; Admin Dose 1 PATCH; Start 09/22/18 at 11:30 Clonidine (Catapres) 0.2 mg TID PO Last administered on 09/26/18 20:47; Admin Dose 0.2 MG; Start 09/23/18 at 09:00 Labetalol HCl (Normodyne) 400 mg BID PO Last administered on 09/26/18 20:47; Admin Dose 400 MG; Start 09/23/18 at 13:30 Clonidine (Catapres) 0.1 mg Q4H PRN NGT SBP > 170; Start 09/23/18 at 13:30 Guaifenesin/ Dextromethorphan (Robitussin Dm Liquid Cup) 10 ml Q6 PRN PO COUGH Last administered on 09/26/18 11:49; Admin Dose 10 ML; Start 09/23/18 at 13:30 Patient Own Medication 1 ea BID LEFT EYE Last administered on 09/26/18 20:48; Admin Dose 1 EA; Start 09/23/18 at 21:00 TERI HALL Sep 27, 2018 08:47
[2018-09-27] MEDS: NITROGLYCERIN 0.2 MG/HR PATCH TRANSDERM SCH (09:24)
[2018-09-27] MEDS: LABETALOL 200 MG TAB PO SCH ×2 (09:25→20:13)
[2018-09-27] MEDS: MINOXIDIL 2.5 MG TAB PO SCH ×2 (09:25→20:12)
[2018-09-27] MEDS: NIFEdipine (XL) 60 MG TAB PO SCH ×2 (09:26→20:12)
[2018-09-27] MEDS: SEVELAMER CARBONATE 0.8 GM PKT PO SCH ×3 (09:26→17:29)
[2018-09-27] MEDS: TAMSULOSIN (SR) 0.4 MG CAP PO SCH (09:26)
[2018-09-27] MEDS: FAMOTIDINE 20 MG TAB PO SCH (09:26)
[2018-09-27] MEDS: ARTIFICIAL TEARS 15 ML OPH BOTH EYES SCH ×4 (09:26→20:15)
[2018-09-27] MEDS: ATROPINE SULFATE 1% LEFT EYE SCH ×2 (09:28→20:18)
--- NOTE | 2018-09-27 10:15 | CONS ---
Consult Date/Type/Reason Admit Date/Time Sep 19, 2018 at 06:33 Initial Consult Date 09/23/18 Type of Consultation: cv Requesting Provider: COREY SARAVIA Date/Time of Note DATE: 09/27/18 TIME: 10:14 Subjective Interventional cardiology follow-up progress note Subjective: Discussed with the staff. Discussed with family. Telemetry was reviewed. Patient with no chest pain or pressure no palpitation no shortness of breath now. His blood pressure has improved and much better controlled. Objective: General: no acute distress HEENT: NC/AT. pupils are equal. round. NECK: . no stridor. CV: RRR. systolic murmur; no gallop or rubs. PULM: no wheezing or rhonchi. GI: SOFT, NT, ND, no rebound or guarding Extremity: trace B/L LE edema. no clubbing. neuro: awake and alert, Psych: calm and pleasant rectal: deferred : normal Objective Vitals Vital Signs Date Temp Pulse Resp B/P (MAP) Pulse Ox O2 O2 Flow FiO2 Time Delivery Rate 09/27/18 66 08:01 09/27/18 98.0 18 141/64 96 07:30 (89) 09/26/18 Room Air 12:30 Intake and Output 09/26/18 09/26/18 09/27/18 1515:00 23:00 07:00 IntakeIntake Total 850 ml 220 ml OutputOutput Total 200 ml 3400 ml BalanceBalance -200 ml -2550 ml 220 ml Results/Medications Result Diagram: 09/27/18 0444 09/27/18 0444 Results 24 hrs Laboratory Tests Test 09/26/18 11:48 09/26/18 17:25 09/26/18 20:45 09/27/18 04:44 Bedside Glucose 121 93 223 H White Blood Count 3.5 L Red Blood Count 3.35 L Hemoglobin 10.2 L Hematocrit 30.2 L Mean Corpuscular Volume 90.1 Mean Corpuscular 30.4 Hemoglobin Mean Corpuscular 33.8 Hemoglobin Concent Red Cell Distribution 12.9 Width Platelet Count 99 L Mean Platelet Volume 11.3 H Immature Granulocytes % 0.000 L Neutrophils % 51.9 Lymphocytes % 18.0 Monocytes % 10.4 Eosinophils % 19.1 H Basophils % 0.6 Nucleated Red Blood 0.0 Cells % Immature Granulocytes # 0.000 Neutrophils # 1.8 Lymphocytes # 0.6 L Monocytes # 0.4 Eosinophils # 0.7 H Basophils # 0.0 Nucleated Red Blood 0.0 Cells # Sodium Level 139 Potassium Level 4.6 Chloride Level 96 L Carbon Dioxide Level 26 Anion Gap 17 H Blood Urea Nitrogen 46 #H Creatinine 8.12 #H Est Glomerular Filtrat 7 L Rate mL/min Glucose Level 97 Calcium Level 7.4 L Test 09/27/18 08:08 Bedside Glucose 100 Home Meds Active Scripts Nifedipine (Procardia Xl) 60 Mg Tab.er.24, 60 MG PO BID for 30 Days, TAB Prov:MARGARITO DAMICO 08/25/18 Minoxidil* (Lonitin*) 2.5 Mg Tab, 5 MG PO BID for 30 Days, TAB Prov:MARGARITO DAMICO 08/25/18 Labetalol Hcl* (Labetalol Hcl*) 200 Mg Tablet, 400 MG PO BID for 30 Days, TAB Prov:MARGARITO DAMICO 08/25/18 Reported Medications Isosorbide Mononitrate* (Isosorbide Mononitrate*) 60 Mg Tab.er.24h, 60 MG PO DAILY, TAB 08/15/18 Losartan Potassium* (Losartan Potassium*) 50 Mg Tablet, 50 MG PO DAILY, TAB 08/15/18 Famotidine* (Famotidine*) 20 Mg Tablet, 20 MG PO BID, #60 TAB 08/15/18 Atropine Sulfate/0.9 %Sod Chlr (Atropine 0.01%-Ns Eye Drops) 10 Ml Drops, 15 ML OP BID, BOTTLE 08/15/18 Tamsulosin Hcl* (Tamsulosin Hcl*) 0.4 Mg Cap.er.24h, 0.4 MG PO DAILY, CAP 08/15/18 Clonidine Hcl* (Clonidine Hcl*) 0.1 Mg Tab, 0.2 MG PO BID PRN for ELEVATED BLOOD PRESSURE, TAB 08/15/18 Sevelamer Carbonate* (Renvela*) 800 Mg Tablet, 0.8 GM PO WITH MEALS, TAB 08/15/18 Medications Current Medications Heparin Sodium (Porcine) (Heparin (1000 Units/ml)) 4,000 unit AFTER DIALYSIS CATHETER Last administered on 09/26/18at 16:11; Admin Dose 4,000 UNIT; Start 09/19/18 at 07:30 Mannitol 50 ml @ 50 mls/5 min WITH DIALYSIS PRN IV DISEQUILIBRIUM SYNDROME PPX; Start 09/19/18 at 07:30 Albumin Human 100 ml @ 100 mls/hr WITH DIALYSIS PRN IV SBP <90 DURING DIALYSIS; Start 09/19/18 at 07:30 Sodium Chloride (NS) -To prime the dialy... DIRECTED FOR HD PRN IV HD; Start 09/19/18 at 07:30 Acetaminophen (Tylenol Tab) 650 mg Q6 PRN PO .MILD PAIN 1-3 OR TEMP; Start 09/19/18 at 10:30 Ondansetron HCl (Zofran Inj) 4 mg Q4 PRN IV NAUSEA/VOMITING Last administered on 09/22/18at 21:11; Admin Dose 4 MG; Start 09/19/18 at 10:30 Diagnostic Test (Pha) (Accu-Chek) 1 ea 02 XX Last administered on 09/24/18at 01:19; Admin Dose 1 EA; Start 09/20/18 at 02:00 Insulin Aspart (Novolog Insulin Pen) NOVOLOG *MILD* ALGORITHM WITH MEALS BEDTIME SC Last administered on 09/26/18at 20:58; Admin Dose 2 UNIT; Start 09/19/18 at 11:30 Miscellaneous Information 1 ea NOTE XX ; Start 09/19/18 at 11:00 Glucose (Glutose) 15 gm Q15M PRN PO DECREASED GLUCOSE; Start 09/19/18 at 11:00 Glucose (Glutose) 22.5 gm Q15M PRN PO DECREASED GLUCOSE; Start 09/19/18 at 11:00 Dextrose (D50w Syringe) 25 ml Q15M PRN IV DECREASED GLUCOSE; Start 09/19/18 at 11:00 Dextrose (D50w Syringe) 50 ml Q15M PRN IV DECREASED GLUCOSE; Start 09/19/18 at 11:00 Glucagon (Glucagen) 1 mg Q15M PRN IM DECREASED GLUCOSE; Start 09/19/18 at 11:00 Glucose (Glutose) 15 gm Q15M PRN BUCCAL DECREASED GLUCOSE; Start 09/19/18 at 11:00 Famotidine (Pepcid) 20 mg DAILY PO Last administered on 09/27/18at 09:26; Admin Dose 20 MG; Start 09/19/18 at 13:00 Nifedipine (Procardia Xl) 60 mg BID PO Last administered on 09/27/18 09:26; Admin Dose 60 MG; Start 09/19/18 at 12:30 Sevelamer Carbonate (Renvela) 0.8 gm WITH MEALS PO Last administered on 09/27/18:26; Admin Dose 0.8 GM; Start 09/19/18 at 17:35 Tamsulosin HCl (Flomax) 0.4 mg DAILY PO Last administered on 09/27/18:; Admin Dose 0.4 MG; Start 09/19/18 at 12:30 Minoxidil (Loniten) 5 mg BID PO Last administered on 09/27/18 09:25; Admin Dose 5 MG; Start 09/19/18 at 13:30 Metoclopramide HCl (Reglan) 5 mg Q6 IV Last administered on 09/27/18 05:25; Admin Dose 5 MG; Start 09/20/18 at 00:00 Eye Lubricant (Artificial Tears Oph) 2 drop QID BOTH EYES Last administered on 09/27/18:; Admin Dose 2 DROP; Start 09/20/18 at 20:00 Piperacillin Sod/ Tazobactam Sod 50 ml @ 100 mls/hr Q8 IVPB Last administered on 09/27/18 05:25; Admin Dose 100 MLS/HR; Start 09/21/18 at 18:00 Nitroglycerin (Nitroglycerin 0.2 Mg/Hr) 1 patch DAILY TRANSDERM Last administered on 09/27/18 09:24; Admin Dose 1 PATCH; Start 09/22/18 at 11:30 Clonidine (Catapres) 0.2 mg TID PO Last administered on 09/27/18 09:25; Admin Dose 0.2 MG; Start 09/23/18 at 09:00 Labetalol HCl (Normodyne) 400 mg BID PO Last administered on 09/27/18 09:25; Admin Dose 400 MG; Start 09/23/18 at 13:30 Clonidine (Catapres) 0.1 mg Q4H PRN NGT SBP > 170; Start 09/23/18 at 13:30 Guaifenesin/ Dextromethorphan (Robitussin Dm Liquid Cup) 10 ml Q6 PRN PO COUGH Last administered on 09/26/18 11:49; Admin Dose 10 ML; Start 09/23/18 at 13:30 Patient Own Medication 1 ea BID LEFT EYE Last administered on 09/27/18at 09:28; Admin Dose 1 EA; Start 09/23/18 at 21:00 Assessment/Plan Hospital Course (Demo Recall) 1. Hypertensive urgency/resistant hypertension: improved now 2. History of coronary artery disease 3. History of most likely [place] and coronary artery bypass graft 4. Renal failure on dialysis 5. Pulmonary vascular congestion/fluid overload 6. Diabetes 7. Dyslipidemia 8. Hyperkalemia 9. Pulmonary nodule 10. severe hyper K: corrected with 11. Pneumonia recently treated with abx Recommendations: Continue with the Procardia. cont labetalol at current dose Continue with minoxidil Clonidine will be continued as a as needed as well. Lipid panel reviewed and showed LDL at goal of less than 70 Hemodialysis as per renal Thank you for his referral. We will continue to follow along with you NAHUN RUSSELL MD [facility] NAHUN RUSSELL MD Sep 27, 2018 10:15
--- NOTE | 2018-09-27 10:16 | CONS ---
Assessment/Plan Assessment/Plan Assessment/Plan (Daily) 1. acute hyperkalemia - Improved 2. Hypertensive emergency on NTG drip 3. ESRD on HD MWF with acute hyperklaemia and acute fluid overload 4. Possible Cholecysitits 5. H/o CAD s/p CABG 6. H/O HTN 7. H/o HL 8. H/o DM II Plan: s/p HD yesterday - 2.8 L removed, plan for HD tomorrow, , -will keep pt on MWF schedule Nifedipine 60mg pO BID with Minoxidil 5 mg BID, clonindine prn IV hydralazine pnr GI following, on PPI will follow up Consultation Date/Type/Reason Admit Date/Time Sep 19, 2018 at 06:33 Initial Consult Date 09/19/18 Type of Consult NEPHROLOGY Requesting Provider: COREY SARAVIA Date/Time of Note DATE: 09/27/18 TIME: 10:16 24 HR Interval Summary Free Text/Dictation no acute events, BP stable, plan for HD tomorrow Exam/Review of Systems Exam Vitals Vital Signs Date Temp Pulse Resp B/P (MAP) Pulse Ox O2 O2 Flow FiO2 Time Delivery Rate 09/27/18 66 08:01 09/27/18 98.0 18 141/64 96 07:30 (89) 09/26/18 Room Air 12:30 Intake and Output 09/26/18 09/26/18 09/27/18 1515:00 23:00 07:00 IntakeIntake Total 850 ml 220 ml OutputOutput Total 200 ml 3400 ml BalanceBalance -200 ml -2550 ml 220 ml Exam Constitutional: alert, distress Respiratory: clear to auscultation, normal air movement, diminished breath sounds Cardiovascular: regular rate and rhythm, nl pulses Gastrointestinal: soft, non-tender, tender (RUQ) Musculoskeletal: nl extremities to inspection, other Extremities: normal pulses, other (Chest permacath HD catheter ) 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: [employer] II-XII intact, nl mental status, nl speech, nl strength Results Result Diagram: 09/27/18 0444 09/27/18 0444 Results 24hrs Laboratory Tests Test 09/26/18 11:48 09/26/18 17:25 09/26/18 20:45 09/27/18 04:44 Bedside Glucose 121 93 223 H White Blood Count 3.5 L Red Blood Count 3.35 L Hemoglobin 10.2 L Hematocrit 30.2 L Mean Corpuscular Volume 90.1 Mean Corpuscular 30.4 Hemoglobin Mean Corpuscular 33.8 Hemoglobin Concent Red Cell Distribution 12.9 Width Platelet Count 99 L Mean Platelet Volume 11.3 H Immature Granulocytes % 0.000 L Neutrophils % 51.9 Lymphocytes % 18.0 Monocytes % 10.4 Eosinophils % 19.1 H Basophils % 0.6 Nucleated Red Blood 0.0 Cells % Immature Granulocytes # 0.000 Neutrophils # 1.8 Lymphocytes # 0.6 L Monocytes # 0.4 Eosinophils # 0.7 H Basophils # 0.0 Nucleated Red Blood 0.0 Cells # Sodium Level 139 Potassium Level 4.6 Chloride Level 96 L Carbon Dioxide Level 26 Anion Gap 17 H Blood Urea Nitrogen 46 #H Creatinine 8.12 #H Est Glomerular Filtrat 7 L Rate mL/min Glucose Level 97 Calcium Level 7.4 L Test 09/27/18 08:08 Bedside Glucose 100 Medications Medication Current Medications Heparin Sodium (Porcine) (Heparin (1000 Units/ml)) 4,000 unit AFTER DIALYSIS CATHETER Last administered on 09/26/18at 16:11; Admin Dose 4,000 UNIT; Start 09/19/18 at 07:30 Mannitol 50 ml @ 50 mls/5 min WITH DIALYSIS PRN IV DISEQUILIBRIUM SYNDROME PPX; Start 09/19/18 at 07:30 Albumin Human 100 ml @ 100 mls/hr WITH DIALYSIS PRN IV SBP <90 DURING DIALYSIS; Start 09/19/18 at 07:30 Sodium Chloride (NS) -To prime the dialy... DIRECTED FOR HD PRN IV HD; Start 09/19/18 at 07:30 Acetaminophen (Tylenol Tab) 650 mg Q6 PRN PO .MILD PAIN 1-3 OR TEMP; Start 09/19/18 at 10:30 Ondansetron HCl (Zofran Inj) 4 mg Q4 PRN IV NAUSEA/VOMITING Last administered on 09/22/18at 21:11; Admin Dose 4 MG; Start 09/19/18 at 10:30 Diagnostic Test (Pha) (Accu-Chek) 1 ea 02 XX Last administered on 09/24/18at 01:19; Admin Dose 1 EA; Start 09/20/18 at 02:00 Insulin Aspart (Novolog Insulin Pen) NOVOLOG *MILD* ALGORITHM WITH MEALS BEDTIME SC Last administered on 09/26/18 20:58; Admin Dose 2 UNIT; Start 09/19/18 at 11:30 Miscellaneous Information 1 ea NOTE XX ; Start 09/19/18 at 11:00 Glucose (Glutose) 15 gm Q15M PRN PO DECREASED GLUCOSE; Start 09/19/18 at 11:00 Glucose (Glutose) 22.5 gm Q15M PRN PO DECREASED GLUCOSE; Start 09/19/18 at 11:00 Dextrose (D50w Syringe) 25 ml Q15M PRN IV DECREASED GLUCOSE; Start 09/19/18 at 11:00 Dextrose (D50w Syringe) 50 ml Q15M PRN IV DECREASED GLUCOSE; Start 09/19/18 at 11:00 Glucagon (Glucagen) 1 mg Q15M PRN IM DECREASED GLUCOSE; Start 09/19/18 at 11:00 Glucose (Glutose) 15 gm Q15M PRN BUCCAL DECREASED GLUCOSE; Start 09/19/18 at 11:00 Famotidine (Pepcid) 20 mg DAILY PO Last administered on 09/27/18 09:26; Admin Dose 20 MG; Start 09/19/18 at 13:00 Nifedipine (Procardia Xl) 60 mg BID PO Last administered on 09/27/18 09:26; Admin Dose 60 MG; Start 09/19/18 at 12:30 Sevelamer Carbonate (Renvela) 0.8 gm WITH MEALS PO Last administered on 09/27/18 09:26; Admin Dose 0.8 GM; Start 09/19/18 at 17:35 Tamsulosin HCl (Flomax) 0.4 mg DAILY PO Last administered on 09/27/18 09:26; Admin Dose 0.4 MG; Start 09/19/18 at 12:30 Minoxidil (Loniten) 5 mg BID PO Last administered on 09/27/18 09:25; Admin Dose 5 MG; Start 09/19/18 at 13:30 Metoclopramide HCl (Reglan) 5 mg Q6 IV Last administered on 09/27/18 05:25; Admin Dose 5 MG; Start 09/20/18 at 00:00 Eye Lubricant (Artificial Tears Oph) 2 drop QID BOTH EYES Last administered on 09/27/18 09:26; Admin Dose 2 DROP; Start 09/20/18 at 20:00 Piperacillin Sod/ Tazobactam Sod 50 ml @ 100 mls/hr Q8 IVPB Last administered on 09/27/18 05:25; Admin Dose 100 MLS/HR; Start 09/21/18 at 18:00 Nitroglycerin (Nitroglycerin 0.2 Mg/Hr) 1 patch DAILY TRANSDERM Last administered on 09/27/18 09:24; Admin Dose 1 PATCH; Start 09/22/18 at 11:30 Clonidine (Catapres) 0.2 mg TID PO Last administered on 09/27/18 09:25; Admin Dose 0.2 MG; Start 09/23/18 at 09:00 Labetalol HCl (Normodyne) 400 mg BID PO Last administered on 09/27/18 09:25; Admin Dose 400 MG; Start 09/23/18 at 13:30 Clonidine (Catapres) 0.1 mg Q4H PRN NGT SBP > 170; Start 09/23/18 at 13:30 Guaifenesin/ Dextromethorphan (Robitussin Dm Liquid Cup) 10 ml Q6 PRN PO COUGH Last administered on 09/26/18 11:49; Admin Dose 10 ML; Start 09/23/18 at 13:30 Patient Own Medication 1 ea BID LEFT EYE Last administered on 09/27/18 09:28; Admin Dose 1 EA; Start 09/23/18 at 21:00 VALERIA RODRÍGUEZ MD Sep 27, 2018 10:16
--- NOTE | 2018-09-27 11:27 | CONS ---
Consult Date/Type/Reason Admit Date/Time Sep 19, 2018 at 06:33 Initial Consult Date 09/23/18 Type of Consult Pulmonary Requesting Provider: COREY SARAVIA Date/Time of Note DATE: 09/27/18 TIME: 11:26 Subjective Comfortable this morning no respiratory distress Objective Vital Signs Date Temp Pulse Resp B/P (MAP) Pulse Ox O2 O2 Flow FiO2 Time Delivery Rate 09/27/18 66 08:01 09/27/18 98.0 18 141/64 96 07:30 (89) 09/26/18 Room Air 12:30 Intake and Output 09/26/18 09/26/18 09/27/18 1515:00 23:00 07:00 IntakeIntake Total 850 ml 220 ml OutputOutput Total 200 ml 3400 ml BalanceBalance -200 ml -2550 ml 220 ml Exam GENERAL: VITAL SIGNS: per chart NECK: Supple. No JVD or lymphadenopathy. CARDIAC EXAM: S1, S2. No added sounds or murmurs. CHEST: clear bilaterally, No added sounds, rales or wheezes ABDOMEN: Soft, nontender. No guarding or rebound. EXTREMITIES: No cyanosis, clubbing or edema. NEUROLOGIC: Generalized weakness. No focal deficits. Vent Setting Fraction of Inspired Oxygen pe: 21 Results/Medications Result Diagram: 09/27/184 09/27/184 Results 24 hrs Laboratory Tests Test 09/26/18 11:48 09/26/18 17:25 09/26/18 20:45 09/27/18 04:44 Bedside Glucose 121 93 223 H White Blood Count 3.5 L Red Blood Count 3.35 L Hemoglobin 10.2 L Hematocrit 30.2 L Mean Corpuscular Volume 90.1 Mean Corpuscular 30.4 Hemoglobin Mean Corpuscular 33.8 Hemoglobin Concent Red Cell Distribution 12.9 Width Platelet Count 99 L Mean Platelet Volume 11.3 H Immature Granulocytes % 0.000 L Neutrophils % 51.9 Lymphocytes % 18.0 Monocytes % 10.4 Eosinophils % 19.1 H Basophils % 0.6 Nucleated Red Blood 0.0 Cells % Immature Granulocytes # 0.000 Neutrophils # 1.8 Lymphocytes # 0.6 L Monocytes # 0.4 Eosinophils # 0.7 H Basophils # 0.0 Nucleated Red Blood 0.0 Cells # Sodium Level 139 Potassium Level 4.6 Chloride Level 96 L Carbon Dioxide Level 26 Anion Gap 17 H Blood Urea Nitrogen 46 #H Creatinine 8.12 #H Est Glomerular Filtrat 7 L Rate mL/min Glucose Level 97 Calcium Level 7.4 L Test 09/27/18 08:08 Bedside Glucose 100 Medications Current Medications Heparin Sodium (Porcine) (Heparin (1000 Units/ml)) 4,000 unit AFTER DIALYSIS CATHETER Last administered on 09/26/18at 16:11; Admin Dose 4,000 UNIT; Start 09/19/18 at 07:30 Mannitol 50 ml @ 50 mls/5 min WITH DIALYSIS PRN IV DISEQUILIBRIUM SYNDROME PPX; Start 09/19/18 at 07:30 Albumin Human 100 ml @ 100 mls/hr WITH DIALYSIS PRN IV SBP <90 DURING DIALYSIS; Start 09/19/18 at 07:30 Sodium Chloride (NS) -To prime the dialy... DIRECTED FOR HD PRN IV HD; Start 09/19/18 at 07:30 Acetaminophen (Tylenol Tab) 650 mg Q6 PRN PO .MILD PAIN 1-3 OR TEMP; Start 09/19/18 at 10:30 Ondansetron HCl (Zofran Inj) 4 mg Q4 PRN IV NAUSEA/VOMITING Last administered on 09/22/18at 21:11; Admin Dose 4 MG; Start 09/19/18 at 10:30 Diagnostic Test (Pha) (Accu-Chek) 1 ea 02 XX Last administered on 09/24/18at 01:19; Admin Dose 1 EA; Start 09/20/18 at 02:00 Insulin Aspart (Novolog Insulin Pen) NOVOLOG *MILD* ALGORITHM WITH MEALS BEDTIME SC Last administered on 09/26/18at 20:58; Admin Dose 2 UNIT; Start 09/19/18 at 11:30 Miscellaneous Information 1 ea NOTE XX ; Start 09/19/18 at 11:00 Glucose (Glutose) 15 gm Q15M PRN PO DECREASED GLUCOSE; Start 09/19/18 at 11:00 Glucose (Glutose) 22.5 gm Q15M PRN PO DECREASED GLUCOSE; Start 09/19/18 at 11:00 Dextrose (D50w Syringe) 25 ml Q15M PRN IV DECREASED GLUCOSE; Start 09/19/18 at 11:00 Dextrose (D50w Syringe) 50 ml Q15M PRN IV DECREASED GLUCOSE; Start 09/19/18 at 11:00 Glucagon (Glucagen) 1 mg Q15M PRN IM DECREASED GLUCOSE; Start 09/19/18 at 11:00 Glucose (Glutose) 15 gm Q15M PRN BUCCAL DECREASED GLUCOSE; Start 09/19/18 at 11:00 Famotidine (Pepcid) 20 mg DAILY PO Last administered on 09/27/18 09:26; Admin Dose 20 MG; Start 09/19/18 at 13:00 Nifedipine (Procardia Xl) 60 mg BID PO Last administered on 09/27/18; Admin Dose 60 MG; Start 09/19/18 at 12:30 Sevelamer Carbonate (Renvela) 0.8 gm WITH MEALS PO Last administered on 09/27/18:; Admin Dose 0.8 GM; Start 09/19/18 at 17:35 Tamsulosin HCl (Flomax) 0.4 mg DAILY PO Last administered on 09/27/18:; Admin Dose 0.4 MG; Start 09/19/18 at 12:30 Minoxidil (Loniten) 5 mg BID PO Last administered on 09/27/18:25; Admin Dose 5 MG; Start 09/19/18 at 13:30 Metoclopramide HCl (Reglan) 5 mg Q6 IV Last administered on 09/27/18 05:25; Admin Dose 5 MG; Start 09/20/18 at 00:00 Eye Lubricant (Artificial Tears Oph) 2 drop QID BOTH EYES Last administered on 09/27/18:26; Admin Dose 2 DROP; Start 09/20/18 at 20:00 Piperacillin Sod/ Tazobactam Sod 50 ml @ 100 mls/hr Q8 IVPB Last administered on 09/27/18 05:25; Admin Dose 100 MLS/HR; Start 09/21/18 at 18:00 Nitroglycerin (Nitroglycerin 0.2 Mg/Hr) 1 patch DAILY TRANSDERM Last administered on 09/27/18 09:24; Admin Dose 1 PATCH; Start 09/22/18 at 11:30 Clonidine (Catapres) 0.2 mg TID PO Last administered on 09/27/18 09:25; Admin Dose 0.2 MG; Start 09/23/18 at 09:00 Labetalol HCl (Normodyne) 400 mg BID PO Last administered on 09/27/18 09:25; Admin Dose 400 MG; Start 09/23/18 at 13:30 Clonidine (Catapres) 0.1 mg Q4H PRN NGT SBP > 170; Start 09/23/18 at 13:30 Guaifenesin/ Dextromethorphan (Robitussin Dm Liquid Cup) 10 ml Q6 PRN PO COUGH Last administered on 09/26/18 11:49; Admin Dose 10 ML; Start 09/23/18 at 13:30 Patient Own Medication 1 ea BID LEFT EYE Last administered on 09/27/18at 09:28; Admin Dose 1 EA; Start 09/23/18 at 21:00 Assessment/Plan Hospital Course (Demo Recall) Assessment/Plan (Daily) IMP: 1. HTN emergency--improved 2. Hyperkalemia 3. CKD on HD 4. Volume overload--on HD/UF 5. Anemia 6. RLL pleural -based lesions RECS: 1. Continue to optimize BP 2. Continue HD/UF 3. Await QuantiFERON gold. Coccidiomycosis serology. NORMA RASMUSSEN MD, [facility] Sep 27, 2018 11:27
--- NOTE | 2018-09-27 14:34 | PN ---
Date/Time of Note Date/Time of Note DATE: 09/27/18 TIME: 14:32 Assessment/Plan VTE Prophylaxis Risk score (from Ns)>0 risk: 3 SCD applied (from Ns): Yes Pharmacological prophylaxis: NA/contraindicated Pharm contraindication: thrombocytopenia Lines/Catheters IV Catheter Type (from [facility]): Permacath Urinary Cath still in place: No Assessment/Plan Hospital Course Better blood pressure control today, plan for hemodialysis tomorrow, continue current care, telemetry monitoring. Assessment/Plan - Hypertensive emergency, s/p nitroglycerin drip, Continue labetalol call, minoxidil and Procardia. - Hyperkalemia, resolved s/p emergent hemodialysis, Dr. Ortez is following in nephrology consultation. - Abdominal pain most likely secondary to gastritis versus PUD, abdominal ultrasound notable for distended gallbladder with marked wall thickening. Continue PPI and Reglan. Dr. Winkler is following in GI consultation. - Possible cholecystitis, continue Zosyn - Pancytopenia - LLL mass decreased with pleural consolidation increased in volume per recent CT. Dr Mueller is following in pulmonology consultation. - HTN - DM - CAD, Hx of CABG - ESRD on HD - Legal blindness. No acute issue. - MRSA of nares colonization Further recommendations based on clinical course. Plan of care discussed with Dr. Reagan. Result Diagram: 09/27/1844309/27/184 Results 24hrs Laboratory Tests Test 09/26/18 17:25 09/26/18 20:45 09/27/18 04:44 09/27/18 08:08 Bedside Glucose 93 223 H 100 White Blood Count 3.5 L Red Blood Count 3.35 L Hemoglobin 10.2 L Hematocrit 30.2 L Mean Corpuscular Volume 90.1 Mean Corpuscular 30.4 Hemoglobin Mean Corpuscular 33.8 Hemoglobin Concent Red Cell Distribution 12.9 Width Platelet Count 99 L Mean Platelet Volume 11.3 H Immature Granulocytes % 0.000 L Neutrophils % 51.9 Lymphocytes % 18.0 Monocytes % 10.4 Eosinophils % 19.1 H Basophils % 0.6 Nucleated Red Blood 0.0 Cells % Immature Granulocytes # 0.000 Neutrophils # 1.8 Lymphocytes # 0.6 L Monocytes # 0.4 Eosinophils # 0.7 H Basophils # 0.0 Nucleated Red Blood 0.0 Cells # Sodium Level 139 Potassium Level 4.6 Chloride Level 96 L Carbon Dioxide Level 26 Anion Gap 17 H Blood Urea Nitrogen 46 #H Creatinine 8.12 #H Est Glomerular Filtrat 7 L Rate mL/min Glucose Level 97 Calcium Level 7.4 L Test 09/27/18 12:07 Bedside Glucose 134 Exam/Review of Systems Exam Vitals Vital Signs Date Temp Pulse Resp B/P (MAP) Pulse Ox O2 O2 Flow FiO2 Time Delivery Rate 09/27/18 61 12:01 09/27/18 97.8 17 132/72 98 11:35 (92) 09/26/18 Room Air 12:30 Intake and Output 09/26/18 09/26/18 09/27/18 1515:00 23:00 07:00 IntakeIntake Total 850 ml 220 ml OutputOutput Total 200 ml 3400 ml BalanceBalance -200 ml -2550 ml 220 ml Exam Constitutional: alert, oriented ENMT: nl external ears & nose, blind Respiratory: clear to auscultation Cardiovascular: regular rate and rhythm Gastrointestinal: soft, non-tender Musculoskeletal: nl extremities to inspection Extremities: normal pulses Results Results 24hrs Laboratory Tests Test 09/26/18 17:25 09/26/18 20:45 09/27/18 04:44 09/27/18 08:08 Bedside Glucose 93 223 H 100 White Blood Count 3.5 L Red Blood Count 3.35 L Hemoglobin 10.2 L Hematocrit 30.2 L Mean Corpuscular Volume 90.1 Mean Corpuscular 30.4 Hemoglobin Mean Corpuscular 33.8 Hemoglobin Concent Red Cell Distribution 12.9 Width Platelet Count 99 L Mean Platelet Volume 11.3 H Immature Granulocytes % 0.000 L Neutrophils % 51.9 Lymphocytes % 18.0 Monocytes % 10.4 Eosinophils % 19.1 H Basophils % 0.6 Nucleated Red Blood 0.0 Cells % Immature Granulocytes # 0.000 Neutrophils # 1.8 Lymphocytes # 0.6 L Monocytes # 0.4 Eosinophils # 0.7 H Basophils # 0.0 Nucleated Red Blood 0.0 Cells # Sodium Level 139 Potassium Level 4.6 Chloride Level 96 L Carbon Dioxide Level 26 Anion Gap 17 H Blood Urea Nitrogen 46 #H Creatinine 8.12 #H Est Glomerular Filtrat 7 L Rate mL/min Glucose Level 97 Calcium Level 7.4 L Test 09/27/18 12:07 Bedside Glucose 134 Medications Medication Current Medications Heparin Sodium (Porcine) (Heparin (1000 Units/ml)) 4,000 unit AFTER DIALYSIS CATHETER Last administered on 09/26/18at 16:11; Admin Dose 4,000 UNIT; Start 09/19/18 at 07:30 Mannitol 50 ml @ 50 mls/5 min WITH DIALYSIS PRN IV DISEQUILIBRIUM SYNDROME PPX; Start 09/19/18 at 07:30 Albumin Human 100 ml @ 100 mls/hr WITH DIALYSIS PRN IV SBP <90 DURING DIALYSIS; Start 09/19/18 at 07:30 Sodium Chloride (NS) -To prime the dialy... DIRECTED FOR HD PRN IV HD; Start 09/19/18 at 07:30 Acetaminophen (Tylenol Tab) 650 mg Q6 PRN PO .MILD PAIN 1-3 OR TEMP; Start 09/19/18 at 10:30 Ondansetron HCl (Zofran Inj) 4 mg Q4 PRN IV NAUSEA/VOMITING Last administered on 09/22/18at 21:11; Admin Dose 4 MG; Start 09/19/18 at 10:30 Diagnostic Test (Pha) (Accu-Chek) 1 ea 02 XX Last administered on 09/24/18at 01:19; Admin Dose 1 EA; Start 09/20/18 at 02:00 Insulin Aspart (Novolog Insulin Pen) NOVOLOG *MILD* ALGORITHM WITH MEALS BEDTIME SC Last administered on 09/26/18at 20:58; Admin Dose 2 UNIT; Start 09/19/18 at 11:30 Miscellaneous Information 1 ea NOTE XX ; Start 09/19/18 at 11:00 Glucose (Glutose) 15 gm Q15M PRN PO DECREASED GLUCOSE; Start 09/19/18 at 11:00 Glucose (Glutose) 22.5 gm Q15M PRN PO DECREASED GLUCOSE; Start 09/19/18 at 11:00 Dextrose (D50w Syringe) 25 ml Q15M PRN IV DECREASED GLUCOSE; Start 09/19/18 at 11:00 Dextrose (D50w Syringe) 50 ml Q15M PRN IV DECREASED GLUCOSE; Start 09/19/18 at 11:00 Glucagon (Glucagen) 1 mg Q15M PRN IM DECREASED GLUCOSE; Start 09/19/18 at 11:00 Glucose (Glutose) 15 gm Q15M PRN BUCCAL DECREASED GLUCOSE; Start 09/19/18 at 11:00 Famotidine (Pepcid) 20 mg DAILY PO Last administered on 09/27/18 09:26; Admin Dose 20 MG; Start 09/19/18 at 13:00 Nifedipine (Procardia Xl) 60 mg BID PO Last administered on 09/27/18 09:26; Admin Dose 60 MG; Start 09/19/18 at 12:30 Sevelamer Carbonate (Renvela) 0.8 gm WITH MEALS PO Last administered on 09/27/18 12:08; Admin Dose 0.8 GM; Start 09/19/18 at 17:35 Tamsulosin HCl (Flomax) 0.4 mg DAILY PO Last administered on 09/27/18 09:26; Admin Dose 0.4 MG; Start 09/19/18 at 12:30 Minoxidil (Loniten) 5 mg BID PO Last administered on 09/27/18 09:25; Admin Dose 5 MG; Start 09/19/18 at 13:30 Metoclopramide HCl (Reglan) 5 mg Q6 IV Last administered on 09/27/18 05:25; Admin Dose 5 MG; Start 09/20/18 at 00:00 Eye Lubricant (Artificial Tears Oph) 2 drop QID BOTH EYES Last administered on 09/27/18 12:08; Admin Dose 2 DROP; Start 09/20/18 at 20:00 Piperacillin Sod/ Tazobactam Sod 50 ml @ 100 mls/hr Q8 IVPB Last administered on 09/27/18 13:55; Admin Dose 100 MLS/HR; Start 09/21/18 at 18:00 Nitroglycerin (Nitroglycerin 0.2 Mg/Hr) 1 patch DAILY TRANSDERM Last administered on 09/27/18 09:24; Admin Dose 1 PATCH; Start 09/22/18 at 11:30 Clonidine (Catapres) 0.2 mg TID PO Last administered on 09/27/18 12:11; Admin Dose 0.2 MG; Start 09/23/18 at 09:00 Labetalol HCl (Normodyne) 400 mg BID PO Last administered on 09/27/18 09:25; Admin Dose 400 MG; Start 09/23/18 at 13:30 Clonidine (Catapres) 0.1 mg Q4H PRN NGT SBP > 170; Start 09/23/18 at 13:30 Guaifenesin/ Dextromethorphan (Robitussin Dm Liquid Cup) 10 ml Q6 PRN PO COUGH Last administered on 09/26/18at 11:49; Admin Dose 10 ML; Start 09/23/18 at 13:30 Patient Own Medication 1 ea BID LEFT EYE Last administered on 09/27/18 09:28; Admin Dose 1 EA; Start 09/23/18 at 21:00 MARGARITO DAMICO Sep 27, 2018 14:34
[2018-09-28] VITALS (27 sets, daily range): BP systolic 126–205; BP diastolic 59–95; PULSE 61–73; RESP 18–22
[2018-09-28] MEDS: PIPER-TAZO 2.25 GM (PMX) 50 ML IVPB SCH ×3 (06:15→21:50)
[2018-09-28] MEDS: METOCLOPRAMIDE 10 MG INJ IV SCH ×4 (06:17→23:45)
[2018-09-28] MEDS: INSULIN ASPART [NOVOLOG] 3 ML PEN SC SCH ×4 (07:51→22:40)
[2018-09-28] MEDS: SEVELAMER CARBONATE 0.8 GM PKT PO SCH ×3 (08:36→17:24)
[2018-09-28] MEDS: ARTIFICIAL TEARS 15 ML OPH BOTH EYES SCH ×4 (08:36→20:24)
[2018-09-28] MEDS: TAMSULOSIN (SR) 0.4 MG CAP PO SCH (08:38)
[2018-09-28] MEDS: FAMOTIDINE 20 MG TAB PO SCH (08:38)
[2018-09-28] MEDS: NITROGLYCERIN 0.2 MG/HR PATCH TRANSDERM SCH (08:38)
[2018-09-28] MEDS: MINOXIDIL 2.5 MG TAB PO SCH ×2 (08:39→20:27)
[2018-09-28] MEDS: ATROPINE SULFATE 1% LEFT EYE SCH ×2 (08:41→20:28)
[2018-09-28] MEDS: NIFEdipine (XL) 60 MG TAB PO SCH ×2 (08:43→20:26)
[2018-09-28] MEDS: LABETALOL 200 MG TAB PO SCH ×2 (08:43→20:25)
--- NOTE | 2018-09-28 09:28 | CONS ---
Consult Date/Type/Reason Admit Date/Time Sep 19, 2018 at 06:33 Initial Consult Date 09/23/18 Type of Consultation: cv Requesting Provider: COREY SARAVIA Date/Time of Note DATE: 09/28/18 TIME: 09:27 Subjective Interventional cardiology follow-up progress note Subjective: Discussed with the staff. Telemetry was reviewed. Patient has remains normal sinus rhythm Patient with no chest pain or pressure no palpitation no shortness of breath now. His blood pressure has improved and much better controlled. Objective: General: no acute distress HEENT: NC/AT. 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 no stridor. CV: RRR. systolic murmur; no gallop or rubs. PULM: no wheezing or rhonchi. GI: SOFT, NT, ND, no rebound or guarding Extremity: trace B/L LE edema. no clubbing. neuro: awake and alert, Psych: calm and pleasant rectal: deferred : normal Objective Vitals Vital Signs Date Temp Pulse Resp B/P (MAP) Pulse Ox O2 O2 Flow FiO2 Time Delivery Rate 09/28/18 65 08:30 09/28/18 97.4 18 134/70 95 Room Air 07:30 (91) Intake and Output 09/27/18 09/27/18 09/28/18 1515:00 23:00 07:00 IntakeIntake Total 470 ml 190 ml BalanceBalance 470 ml 190 ml Results/Medications Result Diagram: 09/27/18 0444 09/27/18 0444 Results 24 hrs Laboratory Tests Test 09/27/18 12:07 09/27/18 17:14 09/27/18 20:11 09/28/18 07:51 Bedside Glucose 134 168 169 97 Home Meds Active Scripts Nifedipine (Procardia Xl) 60 Mg Tab.er.24, 60 MG PO BID for 30 Days, TAB Prov:MARGARITO DAMICO 08/25/18 Minoxidil* (Lonitin*) 2.5 Mg Tab, 5 MG PO BID for 30 Days, TAB Prov:MARGARITO DAMICO 08/25/18 Labetalol Hcl* (Labetalol Hcl*) 200 Mg Tablet, 400 MG PO BID for 30 Days, TAB Prov:MARGARITO DAMICO 08/25/18 Reported Medications Isosorbide Mononitrate* (Isosorbide Mononitrate*) 60 Mg Tab.er.24h, 60 MG PO DAILY, TAB 08/15/18 Losartan Potassium* (Losartan Potassium*) 50 Mg Tablet, 50 MG PO DAILY, TAB 08/15/18 Famotidine* (Famotidine*) 20 Mg Tablet, 20 MG PO BID, #60 TAB 08/15/18 Atropine Sulfate/0.9 %Sod Chlr (Atropine 0.01%-Ns Eye Drops) 10 Ml Drops, 15 ML OP BID, BOTTLE 08/15/18 Tamsulosin Hcl* (Tamsulosin Hcl*) 0.4 Mg Cap.er.24h, 0.4 MG PO DAILY, CAP 08/15/18 Clonidine Hcl* (Clonidine Hcl*) 0.1 Mg Tab, 0.2 MG PO BID PRN for ELEVATED BLOOD PRESSURE, TAB 08/15/18 Sevelamer Carbonate* (Renvela*) 800 Mg Tablet, 0.8 GM PO WITH MEALS, TAB 08/15/18 Medications Current Medications Heparin Sodium (Porcine) (Heparin (1000 Units/ml)) 4,000 unit AFTER DIALYSIS CATHETER Last administered on 09/26/18at 16:11; Admin Dose 4,000 UNIT; Start 09/19/18 at 07:30 Mannitol 50 ml @ 50 mls/5 min WITH DIALYSIS PRN IV DISEQUILIBRIUM SYNDROME PPX; Start 09/19/18 at 07:30 Albumin Human 100 ml @ 100 mls/hr WITH DIALYSIS PRN IV SBP <90 DURING DIALYSIS; Start 09/19/18 at 07:30 Sodium Chloride (NS) -To prime the dialy... DIRECTED FOR HD PRN IV HD; Start 09/19/18 at 07:30 Acetaminophen (Tylenol Tab) 650 mg Q6 PRN PO .MILD PAIN 1-3 OR TEMP; Start 09/19/18 at 10:30 Ondansetron HCl (Zofran Inj) 4 mg Q4 PRN IV NAUSEA/VOMITING Last administered on 09/22/18at 21:11; Admin Dose 4 MG; Start 09/19/18 at 10:30 Diagnostic Test (Pha) (Accu-Chek) 1 ea 02 XX Last administered on 09/24/18at 01:19; Admin Dose 1 EA; Start 09/20/18 at 02:00 Insulin Aspart (Novolog Insulin Pen) NOVOLOG *MILD* ALGORITHM WITH MEALS BEDTIME SC Last administered on 09/27/18 17:31; Admin Dose 1 UNIT; Start 09/19/18 at 11:30 Miscellaneous Information 1 ea NOTE XX ; Start 09/19/18 at 11:00 Glucose (Glutose) 15 gm Q15M PRN PO DECREASED GLUCOSE; Start 09/19/18 at 11:00 Glucose (Glutose) 22.5 gm Q15M PRN PO DECREASED GLUCOSE; Start 09/19/18 at 11:00 Dextrose (D50w Syringe) 25 ml Q15M PRN IV DECREASED GLUCOSE; Start 09/19/18 at 11:00 Dextrose (D50w Syringe) 50 ml Q15M PRN IV DECREASED GLUCOSE; Start 09/19/18 at 11:00 Glucagon (Glucagen) 1 mg Q15M PRN IM DECREASED GLUCOSE; Start 09/19/18 at 11:00 Glucose (Glutose) 15 gm Q15M PRN BUCCAL DECREASED GLUCOSE; Start 09/19/18 at 11:00 Famotidine (Pepcid) 20 mg DAILY PO Last administered on 09/28/18 08:38; Admin Dose 20 MG; Start 09/19/18 at 13:00 Nifedipine (Procardia Xl) 60 mg BID PO Last administered on 09/27/18 20:12; Admin Dose 60 MG; Start 09/19/18 at 12:30 Sevelamer Carbonate (Renvela) 0.8 gm WITH MEALS PO Last administered on 09/28/18 08:36; Admin Dose 0.8 GM; Start 09/19/18 at 17:35 Tamsulosin HCl (Flomax) 0.4 mg DAILY PO Last administered on 09/28/18 08:38; Admin Dose 0.4 MG; Start 09/19/18 at 12:30 Minoxidil (Loniten) 5 mg BID PO Last administered on 09/28/18 08:39; Admin Dose 5 MG; Start 09/19/18 at 13:30 Metoclopramide HCl (Reglan) 5 mg Q6 IV Last administered on 09/28/18 06:17; Admin Dose 5 MG; Start 09/20/18 at 00:00 Eye Lubricant (Artificial Tears Oph) 2 drop QID BOTH EYES Last administered on 09/28/18 08:36; Admin Dose 2 DROP; Start 09/20/18 at 20:00 Piperacillin Sod/ Tazobactam Sod 50 ml @ 100 mls/hr Q8 IVPB Last administered on 09/28/18 06:15; Admin Dose 100 MLS/HR; Start 09/21/18 at 18:00 Nitroglycerin (Nitroglycerin 0.2 Mg/Hr) 1 patch DAILY TRANSDERM Last administered on 09/28/18 08:38; Admin Dose 1 PATCH; Start 09/22/18 at 11:30 Clonidine (Catapres) 0.2 mg TID PO Last administered on 09/27/18 20:12; Admin Dose 0.2 MG; Start 09/23/18 at 09:00 Labetalol HCl (Normodyne) 400 mg BID PO Last administered on 09/27/18 20:13; Admin Dose 400 MG; Start 09/23/18 at 13:30 Clonidine (Catapres) 0.1 mg Q4H PRN NGT SBP > 170 Last administered on 09/28/18 04:31; Admin Dose 0.1 MG; Start 09/23/18 at 13:30 Guaifenesin/ Dextromethorphan (Robitussin Dm Liquid Cup) 10 ml Q6 PRN PO COUGH Last administered on 09/26/18 11:49; Admin Dose 10 ML; Start 09/23/18 at 13:30 Patient Own Medication 1 ea BID LEFT EYE Last administered on 09/28/18 08:41; Admin Dose 1 EA; Start 09/23/18 at 21:00 Assessment/Plan Hospital Course (Demo Recall) 1. Hypertensive urgency/resistant hypertension: improved now 2. History of coronary artery disease 3. History of most likely OR and coronary artery bypass graft 4. Renal failure on dialysis 5. Pulmonary vascular congestion/fluid overload 6. Diabetes 7. Dyslipidemia 8. Hyperkalemia 9. Pulmonary nodule 10. severe hyper K: corrected with 11. Pneumonia recently treated with abx Recommendations: Continue with the Procardia. cont labetalol at current dose Continue with minoxidil Clonidine will be continued as a as needed as well. Lipid panel reviewed and showed LDL at goal of less than 70 Hemodialysis as per renal DC planning as per internal medicine Thank you for his referral. We will continue to follow along with you NAHUN RUSSELL MD [facility] NAHUN RUSSELL MD Sep 28, 2018 09:28
--- NOTE | 2018-09-28 09:57 | CONS ---
Assessment/Plan Assessment/Plan Assessment/Plan (Daily) 1. acute hyperkalemia - Improved 2. Hypertensive emergency on NTG drip 3. ESRD on HD MWF with acute hyperklaemia and acute fluid overload 4. Possible Cholecysitits 5. H/o CAD s/p CABG 6. H/O HTN 7. H/o HL 8. H/o DM II Plan: s/p HD today 3 L removed, -will keep pt on MWF schedule, next HD will be on Wednesday Nifedipine 60mg pO BID , labetalol 400mg BID, Clonidine 0.2 mg TID,Minoxidil 5 mg BID, IV hydralazine prn GI following, on PPI will follow up Consultation Date/Type/Reason Admit Date/Time Sep 19, 2018 at 06:33 Initial Consult Date 09/19/18 Type of Consult NEPHROLOGY Requesting Provider: COREY SARAVIA Date/Time of Note DATE: 09/28/18 TIME: 09:57 Exam/Review of Systems Exam Vitals Vital Signs Date Temp Pulse Resp B/P (MAP) Pulse Ox O2 O2 Flow FiO2 Time Delivery Rate 09/28/18 65 08:30 09/28/18 97.4 18 134/70 95 Room Air 07:30 (91) Intake and Output 09/27/18 09/27/18 09/28/18 1515:00 23:00 07:00 IntakeIntake Total 470 ml 190 ml BalanceBalance 470 ml 190 ml Exam Constitutional: alert, distress Respiratory: clear to auscultation, normal air movement, diminished breath sounds Cardiovascular: regular rate and rhythm, nl pulses Gastrointestinal: soft, non-tender, tender (RUQ) Musculoskeletal: nl extremities to inspection, other Extremities: normal pulses, other (Chest permacath HD catheter ) 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: ABATTOIR MANAGER II-XII intact, nl mental status, nl speech, nl strength Results Result Diagram: 09/27/18 0444 09/27/184 Results 24hrs Laboratory Tests Test 09/27/18 12:07 09/27/18 17:14 09/27/18 20:11 09/28/18 07:51 Bedside Glucose 134 168 169 97 Medications Medication Current Medications Heparin Sodium (Porcine) (Heparin (1000 Units/ml)) 4,000 unit AFTER DIALYSIS CATHETER Last administered on 09/26/18at 16:11; Admin Dose 4,000 UNIT; Start 09/19/18 at 07:30 Mannitol 50 ml @ 50 mls/5 min WITH DIALYSIS PRN IV DISEQUILIBRIUM SYNDROME PPX; Start 09/19/18 at 07:30 Albumin Human 100 ml @ 100 mls/hr WITH DIALYSIS PRN IV SBP <90 DURING DIALYSIS; Start 09/19/18 at 07:30 Sodium Chloride (NS) -To prime the dialy... DIRECTED FOR HD PRN IV HD; Start 09/19/18 at 07:30 Acetaminophen (Tylenol Tab) 650 mg Q6 PRN PO .MILD PAIN 1-3 OR TEMP; Start 09/19/18 at 10:30 Ondansetron HCl (Zofran Inj) 4 mg Q4 PRN IV NAUSEA/VOMITING Last administered on 09/22/18at 21:11; Admin Dose 4 MG; Start 09/19/18 at 10:30 Diagnostic Test (Pha) (Accu-Chek) 1 ea 02 XX Last administered on 09/24/18at 01:19; Admin Dose 1 EA; Start 09/20/18 at 02:00 Insulin Aspart (Novolog Insulin Pen) NOVOLOG *MILD* ALGORITHM WITH MEALS BEDTIME SC Last administered on 09/27/18at 17:31; Admin Dose 1 UNIT; Start 09/19/18 at 11:30 Miscellaneous Information 1 ea NOTE XX ; Start 09/19/18 at 11:00 Glucose (Glutose) 15 gm Q15M PRN PO DECREASED GLUCOSE; Start 09/19/18 at 11:00 Glucose (Glutose) 22.5 gm Q15M PRN PO DECREASED GLUCOSE; Start 09/19/18 at 11:00 Dextrose (D50w Syringe) 25 ml Q15M PRN IV DECREASED GLUCOSE; Start 09/19/18 at 11:00 Dextrose (D50w Syringe) 50 ml Q15M PRN IV DECREASED GLUCOSE; Start 09/19/18 at 11:00 Glucagon (Glucagen) 1 mg Q15M PRN IM DECREASED GLUCOSE; Start 09/19/18 at 11:00 Glucose (Glutose) 15 gm Q15M PRN BUCCAL DECREASED GLUCOSE; Start 09/19/18 at 11:00 Famotidine (Pepcid) 20 mg DAILY PO Last administered on 09/28/18at 08:38; Admin Dose 20 MG; Start 09/19/18 at 13:00 Nifedipine (Procardia Xl) 60 mg BID PO Last administered on 09/27/18 20:12; Admin Dose 60 MG; Start 09/19/18 at 12:30 Sevelamer Carbonate (Renvela) 0.8 gm WITH MEALS PO Last administered on 08:36; Admin Dose 0.8 GM; Start 09/19/18 at 17:35 Tamsulosin HCl (Flomax) 0.4 mg DAILY PO Last administered on 09/28/18 08:38; Admin Dose 0.4 MG; Start 09/19/18 at 12:30 Minoxidil (Loniten) 5 mg BID PO Last administered on 09/28/18 08:39; Admin Dose 5 MG; Start 09/19/18 at 13:30 Metoclopramide HCl (Reglan) 5 mg Q6 IV Last administered on 09/28/18 06:17; Admin Dose 5 MG; Start 09/20/18 at 00:00 Eye Lubricant (Artificial Tears Oph) 2 drop QID BOTH EYES Last administered on 09/28/18 08:36; Admin Dose 2 DROP; Start 09/20/18 at 20:00 Piperacillin Sod/ Tazobactam Sod 50 ml @ 100 mls/hr Q8 IVPB Last administered on 09/28/18 06:15; Admin Dose 100 MLS/HR; Start 09/21/18 at 18:00 Nitroglycerin (Nitroglycerin 0.2 Mg/Hr) 1 patch DAILY TRANSDERM Last administered on 09/28/18 08:38; Admin Dose 1 PATCH; Start 09/22/18 at 11:30 Clonidine (Catapres) 0.2 mg TID PO Last administered on 09/27/18 20:12; Admin Dose 0.2 MG; Start 09/23/18 at 09:00 Labetalol HCl (Normodyne) 400 mg BID PO Last administered on 09/27/18 20:13; Admin Dose 400 MG; Start 09/23/18 at 13:30 Clonidine (Catapres) 0.1 mg Q4H PRN NGT SBP > 170 Last administered on 09/28/18 04:31; Admin Dose 0.1 MG; Start 09/23/18 at 13:30 Guaifenesin/ Dextromethorphan (Robitussin Dm Liquid Cup) 10 ml Q6 PRN PO COUGH Last administered on 09/26/18at 11:49; Admin Dose 10 ML; Start 09/23/18 at 13:30 Patient Own Medication 1 ea BID LEFT EYE Last administered on 09/28/18at 08:41; Admin Dose 1 EA; Start 09/23/18 at 21:00 VALERIA RODRÍGUEZ MD Sep 28, 2018 09:57
--- NOTE | 2018-09-28 14:16 | CONS ---
Consult Date/Type/Reason Admit Date/Time Sep 19, 2018 at 06:33 Initial Consult Date 09/23/18 Type of Consult Pulmonary Requesting Provider: COREY SARAVIA Date/Time of Note DATE: 09/28/18 TIME: 14:16 Subjective Patient comfortable this morning no respiratory distress Objective Vital Signs Date Temp Pulse Resp B/P (MAP) Pulse Ox O2 O2 Flow FiO2 Time Delivery Rate 09/28/18 63 13:04 09/28/18 98.0 18 161/77 96 Room Air 11:30 (105) Intake and Output 09/27/18 09/27/18 09/28/18 1515:00 23:00 07:00 IntakeIntake Total 470 ml 190 ml BalanceBalance 470 ml 190 ml Exam GENERAL: VITAL SIGNS: per chart NECK: Supple. No JVD or lymphadenopathy. CARDIAC EXAM: S1, S2. No added sounds or murmurs. CHEST: clear bilaterally, No added sounds, rales or wheezes ABDOMEN: Soft, nontender. No guarding or rebound. EXTREMITIES: No cyanosis, clubbing or edema. NEUROLOGIC: Generalized weakness. No focal deficits. Vent Setting Fraction of Inspired Oxygen pe: 21 Results/Medications Result Diagram: 09/27/18 0444 09/27/18 0444 Results 24 hrs Laboratory Tests Test 09/27/18 17:14 09/27/18 20:11 09/28/18 07:51 09/28/18 11:52 Bedside Glucose 168 169 97 169 Medications Current Medications Heparin Sodium (Porcine) (Heparin (1000 Units/ml)) 4,000 unit AFTER DIALYSIS CATHETER Last administered on 09/26/18at 16:11; Admin Dose 4,000 UNIT; Start 09/19/18 at 07:30 Mannitol 50 ml @ 50 mls/5 min WITH DIALYSIS PRN IV DISEQUILIBRIUM SYNDROME PPX; Start 09/19/18 at 07:30 Albumin Human 100 ml @ 100 mls/hr WITH DIALYSIS PRN IV SBP <90 DURING DIALYSIS; Start 09/19/18 at 07:30 Sodium Chloride (NS) -To prime the dialy... DIRECTED FOR HD PRN IV HD; Start 09/19/18 at 07:30 Acetaminophen (Tylenol Tab) 650 mg Q6 PRN PO .MILD PAIN 1-3 OR TEMP; Start 09/19/18 at 10:30 Ondansetron HCl (Zofran Inj) 4 mg Q4 PRN IV NAUSEA/VOMITING Last administered on 09/22/18 21:11; Admin Dose 4 MG; Start 09/19/18 at 10:30 Diagnostic Test (Pha) (Accu-Chek) 1 ea 02 XX Last administered on 09/24/18 01:19; Admin Dose 1 EA; Start 09/20/18 at 02:00 Insulin Aspart (Novolog Insulin Pen) NOVOLOG *MILD* ALGORITHM WITH MEALS BEDTIME SC Last administered on 09/28/18 12:15; Admin Dose 1 UNIT; Start 09/19/18 at 11:30 Miscellaneous Information 1 ea NOTE XX ; Start 09/19/18 at 11:00 Glucose (Glutose) 15 gm Q15M PRN PO DECREASED GLUCOSE; Start 09/19/18 at 11:00 Glucose (Glutose) 22.5 gm Q15M PRN PO DECREASED GLUCOSE; Start 09/19/18 at 11:00 Dextrose (D50w Syringe) 25 ml Q15M PRN IV DECREASED GLUCOSE; Start 09/19/18 at 11:00 Dextrose (D50w Syringe) 50 ml Q15M PRN IV DECREASED GLUCOSE; Start 09/19/18 at 11:00 Glucagon (Glucagen) 1 mg Q15M PRN IM DECREASED GLUCOSE; Start 09/19/18 at 11:00 Glucose (Glutose) 15 gm Q15M PRN BUCCAL DECREASED GLUCOSE; Start 09/19/18 at 11:00 Famotidine (Pepcid) 20 mg DAILY PO Last administered on 09/28/18 08:38; Admin Dose 20 MG; Start 09/19/18 at 13:00 Nifedipine (Procardia Xl) 60 mg BID PO Last administered on 09/27/18at 20:12; Admin Dose 60 MG; Start 09/19/18 at 12:30 Sevelamer Carbonate (Renvela) 0.8 gm WITH MEALS PO Last administered on 09/28/18 12:07; Admin Dose 0.8 GM; Start 09/19/18 at 17:35 Tamsulosin HCl (Flomax) 0.4 mg DAILY PO Last administered on 09/28/18 08:38; Admin Dose 0.4 MG; Start 09/19/18 at 12:30 Minoxidil (Loniten) 5 mg BID PO Last administered on 09/28/18 08:39; Admin Dose 5 MG; Start 09/19/18 at 13:30 Metoclopramide HCl (Reglan) 5 mg Q6 IV Last administered on 09/28/18 12:08; Admin Dose 5 MG; Start 09/20/18 at 00:00 Eye Lubricant (Artificial Tears Oph) 2 drop QID BOTH EYES Last administered on 09/28/18 12:08; Admin Dose 2 DROP; Start 09/20/18 at 20:00 Piperacillin Sod/ Tazobactam Sod 50 ml @ 100 mls/hr Q8 IVPB Last administered on 09/28/18 06:15; Admin Dose 100 MLS/HR; Start 09/21/18 at 18:00 Nitroglycerin (Nitroglycerin 0.2 Mg/Hr) 1 patch DAILY TRANSDERM Last administ ered on 09/28/18 08:38; Admin Dose 1 PATCH; Start 09/22/18 at 11:30 Clonidine (Catapres) 0.2 mg TID PO Last administered on 09/27/18 20:12; Admin Dose 0.2 MG; Start 09/23/18 at 09:00 Labetalol HCl (Normodyne) 400 mg BID PO Last administered on 09/27/18 20:13; Admin Dose 400 MG; Start 09/23/18 at 13:30 Clonidine (Catapres) 0.1 mg Q4H PRN NGT SBP > 170 Last administered on 09/28/18 04:31; Admin Dose 0.1 MG; Start 09/23/18 at 13:30 Guaifenesin/ Dextromethorphan (Robitussin Dm Liquid Cup) 10 ml Q6 PRN PO COUGH Last administered on 09/26/18 11:49; Admin Dose 10 ML; Start 09/23/18 at 13:30 Patient Own Medication 1 ea BID LEFT EYE Last administered on 09/28/18 08:41; Admin Dose 1 EA; Start 09/23/18 at 21:00 Assessment/Plan Hospital Course (Demo Recall) Assessment/Plan (Daily) IMP: 1. HTN emergency--improved 2. Hyperkalemia 3. CKD on HD 4. Volume overload--on HD/UF 5. Anemia 6. RLL pleural -based lesions RECS: 1. Continue to optimize BP 2. Continue HD/UF 3. Await QuantiFERON gold. Coccidiomycosis serology. Consider transfer to [facility] NORMA RASMUSSEN MD, [facility] Sep 28, 2018 14:16
--- NOTE | 2018-09-28 14:34 | PN ---
Date/Time of Note Date/Time of Note DATE: 09/28/18 TIME: 14:31 Assessment/Plan VTE Prophylaxis Risk score (from Ns)>0 risk: 4 SCD applied (from Ns): Yes Pharmacological prophylaxis: NA/contraindicated Pharm contraindication: thrombocytopenia Lines/Catheters IV [facility]from [facility] permacath Urinary Cath still in place: No Assessment/Plan Hospital Course No acute distress, patient continues to have fluctuation in blood pressure, pending hemodialysis today. Sugar is adequately controlled. Assessment/Plan - Hypertensive emergency, s/p nitroglycerin drip, Continue labetalol call, minoxidil and Procardia. - Hyperkalemia, resolved s/p emergent hemodialysis, Dr. Ortez is following in nephrology consultation. - Abdominal pain most likely secondary to gastritis versus PUD, abdominal ultrasound notable for distended gallbladder with marked wall thickening. Continue PPI and Reglan. Dr. Winkler is following in GI consultation. - Possible cholecystitis, continue Zosyn - Pancytopenia - LLL mass decreased with pleural consolidation increased in volume per recent CT. Dr Mueller is following in pulmonology consultation. - HTN - DM - CAD, Hx of CABG - ESRD on HD - Legal blindness. No acute issue. - MRSA of nares colonization Further recommendations based on clinical course. Plan of care discussed with Dr. Reagan. Result Diagram: 09/27/18 0444 09/27/18 0444 Results 24hrs Laboratory Tests Test 09/27/18 17:14 09/27/18 20:11 09/28/18 07:51 09/28/18 11:52 Bedside Glucose 168 169 97 169 Exam/Review of Systems Exam Vitals Vital Signs Date Temp Pulse Resp B/P (MAP) Pulse Ox O2 O2 Flow FiO2 Time Delivery Rate 09/28/18 63 13:04 09/28/18 98.0 18 161/77 96 Room Air 11:30 (105) Intake and Output 09/27/18 09/27/18 09/28/18 1515:00 23:00 07:00 IntakeIntake Total 470 ml 190 ml BalanceBalance 470 ml 190 ml Exam Constitutional: alert, oriented ENMT: nl external ears & nose, blind Respiratory: clear to auscultation Cardiovascular: regular rate and rhythm Gastrointestinal: soft, non-tender Musculoskeletal: nl extremities to inspection Extremities: normal pulses Results Results 24hrs Laboratory Tests Test 09/27/18 17:14 09/27/18 20:11 09/28/18 07:51 09/28/18 11:52 Bedside Glucose 168 169 97 169 Medications Medication Current Medications Heparin Sodium (Porcine) (Heparin (1000 Units/ml)) 4,000 unit AFTER DIALYSIS CATHETER Last administered on 09/26/18at 16:11; Admin Dose 4,000 UNIT; Start 09/19/18 at 07:30 Mannitol 50 ml @ 50 mls/5 min WITH DIALYSIS PRN IV DISEQUILIBRIUM SYNDROME PPX; Start 09/19/18 at 07:30 Albumin Human 100 ml @ 100 mls/hr WITH DIALYSIS PRN IV SBP <90 DURING DIALYS IS; Start 09/19/18 at 07:30 Sodium Chloride (NS) -To prime the dialy... DIRECTED FOR HD PRN IV HD; Start 09/19/18 at 07:30 Acetaminophen (Tylenol Tab) 650 mg Q6 PRN PO .MILD PAIN 1-3 OR TEMP; Start 09/19/18 at 10:30 Ondansetron HCl (Zofran Inj) 4 mg Q4 PRN IV NAUSEA/VOMITING Last administered on 09/22/18at 21:11; Admin Dose 4 MG; Start 09/19/18 at 10:30 Diagnostic Test (Pha) (Accu-Chek) 1 ea 02 XX Last administered on 09/24/18at 01:19; Admin Dose 1 EA; Start 09/20/18 at 02:00 Insulin Aspart (Novolog Insulin Pen) NOVOLOG *MILD* ALGORITHM WITH MEALS BEDTIME SC Last administered on 09/28/18at 12:15; Admin Dose 1 UNIT; Start 09/19/18 at 11:30 Miscellaneous Information 1 ea NOTE XX ; Start 09/19/18 at 11:00 Glucose (Glutose) 15 gm Q15M PRN PO DECREASED GLUCOSE; Start 09/19/18 at 11:00 Glucose (Glutose) 22.5 gm Q15M PRN PO DECREASED GLUCOSE; Start 09/19/18 at 11:00 Dextrose (D50w Syringe) 25 ml Q15M PRN IV DECREASED GLUCOSE; Start 09/19/18 at 11:00 Dextrose (D50w Syringe) 50 ml Q15M PRN IV DECREASED GLUCOSE; Start 09/19/18 at 11:00 Glucagon (Glucagen) 1 mg Q15M PRN IM DECREASED GLUCOSE; Start 09/19/18 at 11:00 Glucose (Glutose) 15 gm Q15M PRN BUCCAL DECREASED GLUCOSE; Start 09/19/18 at 11:00 Famotidine (Pepcid) 20 mg DAILY PO Last administered on 09/28/18 08:38; Admin Dose 20 MG; Start 09/19/18 at 13:00 Nifedipine (Procardia Xl) 60 mg BID PO Last administered on 09/27/18 20:12; Admin Dose 60 MG; Start 09/19/18 at 12:30 Sevelamer Carbonate (Renvela) 0.8 gm WITH MEALS PO Last administered on 09/28/18 12:07; Admin Dose 0.8 GM; Start 09/19/18 at 17:35 Tamsulosin HCl (Flomax) 0.4 mg DAILY PO Last administered on 09/28/18 08:38; Admin Dose 0.4 MG; Start 09/19/18 at 12:30 Minoxidil (Loniten) 5 mg BID PO Last administered on 09/28/18 08:39; Admin Dose 5 MG; Start 09/19/18 at 13:30 Metoclopramide HCl (Reglan) 5 mg Q6 IV Last administered on 09/28/18 12:08; Admin Dose 5 MG; Start 09/20/18 at 00:00 Eye Lubricant (Artificial Tears Oph) 2 drop QID BOTH EYES Last administered on 09/28/18 12:08; Admin Dose 2 DROP; Start 09/20/18 at 20:00 Piperacillin Sod/ Tazobactam Sod 50 ml @ 100 mls/hr Q8 IVPB Last administered on 09/28/18 14:27; Admin Dose 100 MLS/HR; Start 09/21/18 at 18:00 Nitroglycerin (Nitroglycerin 0.2 Mg/Hr) 1 patch DAILY TRANSDERM Last administered on 09/28/18 08:38; Admin Dose 1 PATCH; Start 09/22/18 at 11:30 Clonidine (Catapres) 0.2 mg TID PO Last administered on 09/27/18 20:12; Admin Dose 0.2 MG; Start 09/23/18 at 09:00 Labetalol HCl (Normodyne) 400 mg BID PO Last administered on 09/27/18 20:13; Admin Dose 400 MG; Start 09/23/18 at 13:30 Clonidine (Catapres) 0.1 mg Q4H PRN NGT SBP > 170 Last administered on 09/28/18 04:31; Admin Dose 0.1 MG; Start 09/23/18 at 13:30 Guaifenesin/ Dextromethorphan (Robitussin Dm Liquid Cup) 10 ml Q6 PRN PO COUGH Last administered on 09/26/18 11:49; Admin Dose 10 ML; Start 09/23/18 at 13:30 Patient Own Medication 1 ea BID LEFT EYE Last administered on 09/28/18 08:41; Admin Dose 1 EA; Start 09/23/18 at 21:00 MARGARITO DAMICO Sep 28, 2018 14:34
[2018-09-28] MEDS: HEPARIN 1000 UNITS/ML 10 ML INJ CATHETER SCH (18:22)
[2018-09-29] VITALS (15 sets, daily range): BP systolic 161–220; BP diastolic 75–99; PULSE 60–69; RESP 18–20
[2018-09-29] MEDS: ACCU-CHEK XX SCH (02:00)
[2018-09-29] MEDS: PIPER-TAZO 2.25 GM (PMX) 50 ML IVPB SCH ×3 (05:50→21:29)
[2018-09-29] MEDS: METOCLOPRAMIDE 10 MG INJ IV SCH ×4 (05:51→23:50)
[2018-09-29] MEDS: INSULIN ASPART [NOVOLOG] 3 ML PEN SC SCH ×4 (07:26→21:00)
--- NOTE | 2018-09-29 08:03 | CONS ---
Consult Date/Type/Reason Admit Date/Time Sep 19, 2018 at 06:33 Initial Consult Date 09/23/18 Type of Consultation: cv Requesting Provider: COREY SARAVIA Date/Time of Note DATE: 09/29/18 TIME: 08:03 Subjective Interventional cardiology follow-up progress note Subjective: Discussed with the staff and Telemetry was reviewed. Patient has remains normal sinus rhythm Patient with no chest pain or pressure no palpitation no shortness of breath now. His blood pressure has been elevated last night Objective: General: no acute distress HEENT: NC/AT. 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 no stridor. CV: RRR. systolic murmur; no gallop or rubs. PULM: no wheezing or rhonchi. GI: SOFT, NT, ND, no rebound or guarding Extremity: trace B/L LE edema. no clubbing. neuro: awake and alert, Psych: calm and pleasant rectal: deferred : normal Objective Vitals Vital Signs Date Temp Pulse Resp B/P (MAP) Pulse Ox O2 O2 Flow FiO2 Time Delivery Rate 09/29/18 97.7 65 20 178/81 96 Room Air 07:11 (113) Intake and Output 09/28/18 09/28/18 09/29/18 1515:00 23:00 07:00 IntakeIntake Total 450 ml 50 ml OutputOutput Total 200 ml 3400 ml BalanceBalance -200 ml -2950 ml 50 ml Results/Medications Result Diagram: 09/29/18 0529 09/29/18 0529 Results 24 hrs Laboratory Tests Test 09/28/18 11:52 09/28/18 16:42 09/28/18 20:37 09/29/18 01:51 Bedside Glucose 169 118 229 H 90 Test 09/29/18 05:29 09/29/18 07:25 White Blood Count 3.5 L Red Blood Count 3.70 L Hemoglobin 10.9 L Hematocrit 33.0 L Mean Corpuscular 89.2 Volume Mean Corpuscular 29.5 Hemoglobin Mean Corpuscular 33.0 Hemoglobin Concent Red Cell 12.9 Distribution Width Platelet Count 94 L Mean Platelet Volume 11.4 H Immature 0.000 L Granulocytes % Neutrophils % 49.8 Lymphocytes % 20.2 Monocytes % 9.8 Eosinophils % 19.9 H Basophils % 0.3 Nucleated Red Blood 0.0 Cells % Immature 0.000 Granulocytes # Neutrophils # 1.7 Lymphocytes # 0.7 L Monocytes # 0.3 Eosinophils # 0.7 H Basophils # 0.0 Nucleated Red Blood 0.0 Cells # Sodium Level 138 Potassium Level 5.1 Chloride Level 95 L Carbon Dioxide Level 26 Anion Gap 17 H Blood Urea Nitrogen 45 H Creatinine 7.98 H Est Glomerular 7 L Filtrat Rate mL/min Glucose Level 99 Calcium Level 8.1 L Bedside Glucose 94 Home Meds Active Scripts Nifedipine (Procardia Xl) 60 Mg Tab.er.24, 60 MG PO BID for 30 Days, TAB Prov:ELIEZER DAMICOA 08/25/18 Minoxidil* (Lonitin*) 2.5 Mg Tab, 5 MG PO BID for 30 Days, TAB Prov:MARGARITO DAMICO 08/25/18 Labetalol Hcl* (Labetalol Hcl*) 200 Mg Tablet, 400 MG PO BID for 30 Days, TAB Prov:MARGARITO DAMICO 08/25/18 Reported Medications Isosorbide Mononitrate* (Isosorbide Mononitrate*) 60 Mg Tab.er.24h, 60 MG PO DAILY, TAB 08/15/18 Losartan Potassium* (Losartan Potassium*) 50 Mg Tablet, 50 MG PO DAILY, TAB 08/15/18 Famotidine* (Famotidine*) 20 Mg Tablet, 20 MG PO BID, #60 TAB 08/15/18 Atropine Sulfate/0.9 %Sod Chlr (Atropine 0.01%-Ns Eye Drops) 10 Ml Drops, 15 ML OP BID, BOTTLE 08/15/18 Tamsulosin Hcl* (Tamsulosin Hcl*) 0.4 Mg Cap.er.24h, 0.4 MG PO DAILY, CAP 08/15/18 Clonidine Hcl* (Clonidine Hcl*) 0.1 Mg Tab, 0.2 MG PO BID PRN for ELEVATED BLOOD PRESSURE, TAB 08/15/18 Sevelamer Carbonate* (Renvela*) 800 Mg Tablet, 0.8 GM PO WITH MEALS, TAB 08/15/18 Medications Current Medications Heparin Sodium (Porcine) (Heparin (1000 Units/ml)) 4,000 unit AFTER DIALYSIS CATHETER Last administered on 09/28/18at 18:22; Admin Dose 3,800 UNIT; Start 09/19/18 at 07:30 Mannitol 50 ml @ 50 mls/5 min WITH DIALYSIS PRN IV DISEQUILIBRIUM SYNDROME PPX; Start 09/19/18 at 07:30 Albumin Human 100 ml @ 100 mls/hr WITH DIALYSIS PRN IV SBP <90 DURING DIALYSIS; Start 09/19/18 at 07:30 Sodium Chloride (NS) -To prime the dialy... DIRECTED FOR HD PRN IV HD; Start 09/19/18 at 07:30 Acetaminophen (Tylenol Tab) 650 mg Q6 PRN PO .MILD PAIN 1-3 OR TEMP Last administered on 09/28/18at 20:26; Admin Dose 650 MG; Start 09/19/18 at 10:30 Ondansetron HCl (Zofran Inj) 4 mg Q4 PRN IV NAUSEA/VOMITING Last administered on 09/22/18at 21:11; Admin Dose 4 MG; Start 09/19/18 at 10:30 Diagnostic Test (Pha) (Accu-Chek) 1 ea 02 XX Last administered on 09/24/18at 01:19; Admin Dose 1 EA; Start 09/20/18 at 02:00 Insulin Aspart (Novolog Insulin Pen) NOVOLOG *MILD* ALGORITHM WITH MEALS BEDTIME SC Last administered on 09/28/18at 22:40; Admin Dose 2 UNIT; Start 09/19/18 at 11:30 Miscellaneous Information 1 ea NOTE XX ; Start 09/19/18 at 11:00 Glucose (Glutose) 15 gm Q15M PRN PO DECREASED GLUCOSE; Start 09/19/18 at 11:00 Glucose (Glutose) 22.5 gm Q15M PRN PO DECREASED GLUCOSE; Start 09/19/18 at 11:00 Dextrose (D50w Syringe) 25 ml Q15M PRN IV DECREASED GLUCOSE; Start 09/19/18 at 11:00 Dextrose (D50w Syringe) 50 ml Q15M PRN IV DECREASED GLUCOSE; Start 09/19/18 at 11:00 Glucagon (Glucagen) 1 mg Q15M PRN IM DECREASED GLUCOSE; Start 09/19/18 at 11:00 Glucose (Glutose) 15 gm Q15M PRN BUCCAL DECREASED GLUCOSE; Start 09/19/18 at 11:00 Famotidine (Pepcid) 20 mg DAILY PO Last administered on 09/28/18at 08:38; Admin Dose 20 MG; Start 09/19/18 at 13:00 Nifedipine (Procardia Xl) 60 mg BID PO Last administered on 09/28/18 20:26; Admin Dose 60 MG; Start 09/19/18 at 12:30 Sevelamer Carbonate (Renvela) 0.8 gm WITH MEALS PO Last administered on 09/28/18 17:24; Admin Dose 0.8 GM; Start 09/19/18 at 17:35 Tamsulosin HCl (Flomax) 0.4 mg DAILY PO Last administered on 09/28/18 08:38; Admin Dose 0.4 MG; Start 09/19/18 at 12:30 Minoxidil (Loniten) 5 mg BID PO Last administered on 09/28/18 20:27; Admin Dose 5 MG; Start 09/19/18 at 13:30 Metoclopramide HCl (Reglan) 5 mg Q6 IV Last administered on 09/29/18 05:51; Admin Dose 5 MG; Start 09/20/18 at 00:00 Eye Lubricant (Artificial Tears Oph) 2 drop QID BOTH EYES Last administered on 09/28/18 20:24; Admin Dose 2 DROP; Start 09/20/18 at 20:00 Piperacillin Sod/ Tazobactam Sod 50 ml @ 100 mls/hr Q8 IVPB Last administered on 09/29/18 05:50; Admin Dose 100 MLS/HR; Start 09/21/18 at 18:00 Nitroglycerin (Nitroglycerin 0.2 Mg/Hr) 1 patch DAILY TRANSDERM Last administe red on 09/28/18 08:38; Admin Dose 1 PATCH; Start 09/22/18 at 11:30 Clonidine (Catapres) 0.2 mg TID PO Last administered on 09/28/18 20:28; Admin Dose 0.2 MG; Start 09/23/18 at 09:00 Labetalol HCl (Normodyne) 400 mg BID PO Last administered on 09/28/18 20:25; Admin Dose 400 MG; Start 09/23/18 at 13:30 Clonidine (Catapres) 0.1 mg Q4H PRN NGT SBP > 170 Last administered on 09/29/18 05:10; Admin Dose 0.1 MG; Start 09/23/18 at 13:30 Guaifenesin/ Dextromethorphan (Robitussin Dm Liquid Cup) 10 ml Q6 PRN PO COUGH Last administered on 09/26/18at 11:49; Admin Dose 10 ML; Start 09/23/18 at 13:30 Patient Own Medication 1 ea BID LEFT EYE Last administered on 09/28/18at 20:28; Admin Dose 1 EA; Start 09/23/18 at 21:00 Assessment/Plan Hospital Course (Demo Recall) 1. Hypertensive urgency/resistant hypertension: improved now 2. History of coronary artery disease 3. History of most likely AR and coronary artery bypass graft 4. Renal failure on dialysis 5. Pulmonary vascular congestion/fluid overload 6. Diabetes 7. Dyslipidemia 8. Hyperkalemia 9. Pulmonary nodule 10. severe hyper K: corrected with 11. Pneumonia recently treated with abx Recommendations: Continue with the Procardia. Increase labetalol as tolerated Continue with minoxidil Clonidine will be continued as a as needed as well. Lipid panel reviewed and showed LDL at goal of less than 70 Hemodialysis as per renal DC planning as per internal medicine Thank you for his referral. We will continue to follow along with you NAHUN RUSSELL MD [facility] NAHUN RUSSELL MD Sep 29, 2018 08:03
[2018-09-29] MEDS: ARTIFICIAL TEARS 15 ML OPH BOTH EYES SCH ×4 (08:09→21:19)
[2018-09-29] MEDS: NITROGLYCERIN 0.2 MG/HR PATCH TRANSDERM SCH (08:09)
[2018-09-29] MEDS: FAMOTIDINE 20 MG TAB PO SCH (08:10)
[2018-09-29] MEDS: NIFEdipine (XL) 60 MG TAB PO SCH ×2 (08:10→21:20)
[2018-09-29] MEDS: SEVELAMER CARBONATE 0.8 GM PKT PO SCH ×3 (08:10→18:01)
[2018-09-29] MEDS: MINOXIDIL 2.5 MG TAB PO SCH ×2 (08:11→21:19)
[2018-09-29] MEDS: LABETALOL 200 MG TAB PO SCH ×3 (08:11→21:20)
[2018-09-29] MEDS: ATROPINE SULFATE 1% LEFT EYE SCH ×2 (08:12→21:19)
[2018-09-29] MEDS: TAMSULOSIN (SR) 0.4 MG CAP PO SCH (08:13)
--- NOTE | 2018-09-29 10:36 | CONS ---
Consult Date/Type/Reason Admit Date/Time Sep 19, 2018 at 06:33 Initial Consult Date 09/23/18 Type of Consult Pulmonary Requesting Provider: COREY SARAVIA Date/Time of Note DATE: 09/29/18 TIME: 10:36 Subjective Patient appears comfortable no respiratory distress. Objective Vital Signs Date Temp Pulse Resp B/P (MAP) Pulse Ox O2 O2 Flow FiO2 Time Delivery Rate 09/29/18 69 08:15 09/29/18 97.7 20 178/81 96 Room Air 07:11 (113) Intake and Output 09/28/18 09/28/18 09/29/18 1515:00 23:00 07:00 IntakeIntake Total 450 ml 50 ml OutputOutput Total 200 ml 3400 ml BalanceBalance -200 ml -2950 ml 50 ml Exam GENERAL: VITAL SIGNS: per chart NECK: Supple. No JVD or lymphadenopathy. CARDIAC EXAM: S1, S2. No added sounds or murmurs. CHEST: clear bilaterally, No added sounds, rales or wheezes ABDOMEN: Soft, nontender. No guarding or rebound. EXTREMITIES: No cyanosis, clubbing or edema. NEUROLOGIC: Generalized weakness. No focal deficits. Vent Setting Fraction of Inspired Oxygen pe: 21 Results/Medications Result Diagram: 09/29/18 0529 09/29/18 0529 Results 24 hrs Laboratory Tests Test 09/28/18 11:52 09/28/18 16:42 09/28/18 20:37 09/29/18 01:51 Bedside Glucose 169 118 229 H 90 Test 09/29/18 05:29 09/29/18 07:25 White Blood Count 3.5 L Red Blood Count 3.70 L Hemoglobin 10.9 L Hematocrit 33.0 L Mean Corpuscular 89.2 Volume Mean Corpuscular 29.5 Hemoglobin Mean Corpuscular 33.0 Hemoglobin Concent Red Cell 12.9 Distribution Width Platelet Count 94 L Mean Platelet Volume 11.4 H Immature 0.000 L Granulocytes % Neutrophils % 49.8 Lymphocytes % 20.2 Monocytes % 9.8 Eosinophils % 19.9 H Basophils % 0.3 Nucleated Red Blood 0.0 Cells % Immature 0.000 Granulocytes # Neutrophils # 1.7 Lymphocytes # 0.7 L Monocytes # 0.3 Eosinophils # 0.7 H Basophils # 0.0 Nucleated Red Blood 0.0 Cells # Sodium Level 138 Potassium Level 5.1 Chloride Level 95 L Carbon Dioxide Level 26 Anion Gap 17 H Blood Urea Nitrogen 45 H Creatinine 7.98 H Est Glomerular 7 L Filtrat Rate mL/min Glucose Level 99 Calcium Level 8.1 L Bedside Glucose 94 Medications Current Medications Heparin Sodium (Porcine) (Heparin (1000 Units/ml)) 4,000 unit AFTER DIALYSIS CATHETER Last administered on 09/28/18at 18:22; Admin Dose 3,800 UNIT; Start 09/19/18 at 07:30 Mannitol 50 ml @ 50 mls/5 min WITH DIALYSIS PRN IV DISEQUILIBRIUM SYNDROME PPX; Start 09/19/18 at 07:30 Albumin Human 100 ml @ 100 mls/hr WITH DIALYSIS PRN IV SBP <90 DURING DIALYSIS; Start 09/19/18 at 07:30 Sodium Chloride (NS) -To prime the dialy... DIRECTED FOR HD PRN IV HD; Start 09/19/18 at 07:30 Acetaminophen (Tylenol Tab) 650 mg Q6 PRN PO .MILD PAIN 1-3 OR TEMP Last administered on 09/28/18at 20:26; Admin Dose 650 MG; Start 09/19/18 at 10:30 Ondansetron HCl (Zofran Inj) 4 mg Q4 PRN IV NAUSEA/VOMITING Last administered o n 09/22/18at 21:11; Admin Dose 4 MG; Start 09/19/18 at 10:30 Diagnostic Test (Pha) (Accu-Chek) 1 ea 02 XX Last administered on 09/24/18at 01:19; Admin Dose 1 EA; Start 09/20/18 at 02:00 Insulin Aspart (Novolog Insulin Pen) NOVOLOG *MILD* ALGORITHM WITH MEALS BEDTIME SC Last administered on 09/28/18at 22:40; Admin Dose 2 UNIT; Start 09/19/18 at 11:30 Miscellaneous Information 1 ea NOTE XX ; Start 09/19/18 at 11:00 Glucose (Glutose) 15 gm Q15M PRN PO DECREASED GLUCOSE; Start 09/19/18 at 11:00 Glucose (Glutose) 22.5 gm Q15M PRN PO DECREASED GLUCOSE; Start 09/19/18 at 11:00 Dextrose (D50w Syringe) 25 ml Q15M PRN IV DECREASED GLUCOSE; Start 09/19/18 at 11:00 Dextrose (D50w Syringe) 50 ml Q15M PRN IV DECREASED GLUCOSE; Start 09/19/18 at 11:00 Glucagon (Glucagen) 1 mg Q15M PRN IM DECREASED GLUCOSE; Start 09/19/18 at 11:00 Glucose (Glutose) 15 gm Q15M PRN BUCCAL DECREASED GLUCOSE; Start 09/19/18 at 11 :00 Famotidine (Pepcid) 20 mg DAILY PO Last administered on 09/29/18 08:10; Admin Dose 20 MG; Start 09/19/18 at 13:00 Nifedipine (Procardia Xl) 60 mg BID PO Last administered on 09/29/18 08:10; Admin Dose 60 MG; Start 09/19/18 at 12:30 Sevelamer Carbonate (Renvela) 0.8 gm WITH MEALS PO Last administered on 09/29/18 08:10; Admin Dose 0.8 GM; Start 09/19/18 at 17:35 Tamsulosin HCl (Flomax) 0.4 mg DAILY PO Last administered on 09/29/18 08:13; Admin Dose 0.4 MG; Start 09/19/18 at 12:30 Minoxidil (Loniten) 5 mg BID PO Last administered on 09/29/18 08:11; Admin Dose 5 MG; Start 09/19/18 at 13:30 Metoclopramide HCl (Reglan) 5 mg Q6 IV Last administered on 09/29/18 05:51; Admin Dose 5 MG; Start 09/20/18 at 00:00 Eye Lubricant (Artificial Tears Oph) 2 drop QID BOTH EYES Last administered on 09/29/18 08:09; Admin Dose 2 DROP; Start 09/20/18 at 20:00 Piperacillin Sod/ Tazobactam Sod 50 ml @ 100 mls/hr Q8 IVPB Last administered on 09/29/18 05:50; Admin Dose 100 MLS/HR; Start 09/21/18 at 18:00 Nitroglycerin (Nitroglycerin 0.2 Mg/Hr) 1 patch DAILY TRANSDERM Last administered on 09/29/18 08:09; Admin Dose 1 PATCH; Start 09/22/18 at 11:30 Clonidine (Catapres) 0.2 mg TID PO Last administered on 09/29/18 08:11; Admin Dose 0.2 MG; Start 09/23/18 at 09:00 Clonidine (Catapres) 0.1 mg Q4H PRN NGT SBP > 170 Last administered on 09/29/18at 05:10; Admin Dose 0.1 MG; Start 09/23/18 at 13:30 Guaifenesin/ Dextromethorphan (Robitussin Dm Liquid Cup) 10 ml Q6 PRN PO COUGH Last administered on 09/26/18at 11:49; Admin Dose 10 ML; Start 09/23/18 at 13:30 Patient Own Medication 1 ea BID LEFT EYE Last administered on 09/29/18at 08:12; Admin Dose 1 EA; Start 09/23/18 at 21:00 Labetalol HCl (Normodyne) 400 mg TID PO Last administered on 09/29/18at 08:11; Admin Dose 400 MG; Start 09/29/18 at 09:00 Assessment/Plan Hospital Course (Demo Recall) Assessment/Plan (Daily) IMP: 1. HTN emergency--improved 2. Hyperkalemia 3. CKD on HD 4. Volume overload--on HD/UF 5. Anemia 6. RLL pleural -based lesions RECS: 1. Continue to optimize BP 2. Continue HD/UF 3. ID recommendations Consider transfer to [facility] NORMA RASMUSSEN MD, [facility] Sep 29, 2018 10:36
--- NOTE | 2018-09-29 14:06 | PN ---
Date/Time of Note Date/Time of Note DATE: 09/29/18 TIME: 14:03 Assessment/Plan VTE Prophylaxis Risk score (from Ns)>0 risk: 4 SCD applied (from Ns): Yes Pharmacological prophylaxis: heparin Lines/Catheters IV Catheter Type (from Nrs): Saline Lock Urinary Cath still in place: No Assessment/Plan Hospital Course Patient is hypertensive with blood pressure systolic above 200 early in the morning. Patient denies any chest pain denies shortness of breath. Anticipate discharge home if blood pressure well controlled and stable for 24 hours. Assessment/Plan - Hypertensive emergency, s/p nitroglycerin drip, Continue labetalol call, minoxidil and Procardia. - Hyperkalemia, resolved s/p emergent hemodialysis, Dr. Ortez is following in nephrology consultation. - Abdominal pain most likely secondary to gastritis versus PUD, abdominal ultrasound notable for distended gallbladder with marked wall thickening. Continue PPI and Reglan. Dr. Winkler is following in GI consultation. - Possible cholecystitis, continue Zosyn - Pancytopenia - LLL mass decreased with pleural consolidation increased in volume per recent CT. Dr Mueller is following in pulmonology consultation. - HTN - DM - CAD, Hx of CABG - ESRD on HD - Legal blindness. No acute issue. - MRSA of nares colonization Further recommendations based on clinical course. Plan of care discussed with Dr. Reagan. Result Diagram: 09/29/1852809/29/18 0529 Results 24hrs Laboratory Tests Test 09/28/18 16:42 09/28/18 20:37 09/29/18 01:51 09/29/18 05:29 Bedside Glucose 118 229 H 90 White Blood Count 3.5 L Red Blood Count 3.70 L Hemoglobin 10.9 L Hematocrit 33.0 L Mean Corpuscular 89.2 Volume Mean Corpuscular 29.5 Hemoglobin Mean Corpuscular 33.0 Hemoglobin Concent Red Cell 12.9 Distribution Width Platelet Count 94 L Mean Platelet Volume 11.4 H Immature 0.000 L Granulocytes % Neutrophils % 49.8 Lymphocytes % 20.2 Monocytes % 9.8 Eosinophils % 19.9 H Basophils % 0.3 Nucleated Red Blood 0.0 Cells % Immature 0.000 Granulocytes # Neutrophils # 1.7 Lymphocytes # 0.7 L Monocytes # 0.3 Eosinophils # 0.7 H Basophils # 0.0 Nucleated Red Blood 0.0 Cells # Sodium Level 138 Potassium Level 5.1 Chloride Level 95 L Carbon Dioxide Level 26 Anion Gap 17 H Blood Urea Nitrogen 45 H Creatinine 7.98 H Est Glomerular 7 L Filtrat Rate mL/min Glucose Level 99 Calcium Level 8.1 L Test 09/29/18 07:25 09/29/18 11:39 Bedside Glucose 94 154 Exam/Review of Systems Exam Vitals Vital Signs Date Temp Pulse Resp B/P (MAP) Pulse Ox O2 O2 Flow FiO2 Time Delivery Rate 09/29/18 63 12:13 09/29/18 97.5 20 165/79 96 Room Air 11:06 (107) Intake and Output 09/28/18 09/28/18 09/29/18 1515:00 23:00 07:00 IntakeIntake Total 450 ml 50 ml OutputOutput Total 200 ml 3400 ml BalanceBalance -200 ml -2950 ml 50 ml Exam Constitutional: alert, oriented ENMT: nl external ears & nose, blind Respiratory: clear to auscultation Cardiovascular: regular rate and rhythm Gastrointestinal: soft, non-tender Musculoskeletal: nl extremities to inspection Extremities: normal pulses Results Results 24hrs Laboratory Tests Test 09/28/18 16:42 09/28/18 20:37 09/29/18 01:51 09/29/18 05:29 Bedside Glucose 118 229 H 90 White Blood Count 3.5 L Red Blood Count 3.70 L Hemoglobin 10.9 L Hematocrit 33.0 L Mean Corpuscular 89.2 Volume Mean Corpuscular 29.5 Hemoglobin Mean Corpuscular 33.0 Hemoglobin Concent Red Cell 12.9 Distribution Width Platelet Count 94 L Mean Platelet Volume 11.4 H Immature 0.000 L Granulocytes % Neutrophils % 49.8 Lymphocytes % 20.2 Monocytes % 9.8 Eosinophils % 19.9 H Basophils % 0.3 Nucleated Red Blood 0.0 Cells % Immature 0.000 Granulocytes # Neutrophils # 1.7 Lymphocytes # 0.7 L Monocytes # 0.3 Eosinophils # 0.7 H Basophils # 0.0 Nucleated Red Blood 0.0 Cells # Sodium Level 138 Potassium Level 5.1 Chloride Level 95 L Carbon Dioxide Level 26 Anion Gap 17 H Blood Urea Nitrogen 45 H Creatinine 7.98 H Est Glomerular 7 L Filtrat Rate mL/min Glucose Level 99 Calcium Level 8.1 L Test 09/29/18 07:25 09/29/18 11:39 Bedside Glucose 94 154 Medications Medication Current Medications Heparin Sodium (Porcine) (Heparin (1000 Units/ml)) 4,000 unit AFTER DIALYSIS CATHETER Last administered on 09/28/18at 18:22; Admin Dose 3,800 UNIT; Start 09/19/18 at 07:30 Mannitol 50 ml @ 50 mls/5 min WITH DIALYSIS PRN IV DISEQUILIBRIUM SYNDROME PPX; Start 09/19/18 at 07:30 Albumin Human 100 ml @ 100 mls/hr WITH DIALYSIS PRN IV SBP <90 DURING DIALYSIS; Start 09/19/18 at 07:30 Sodium Chloride (NS) -To prime the dialy... DIRECTED FOR HD PRN IV HD; Start 09/19/18 at 07:30 Acetaminophen (Tylenol Tab) 650 mg Q6 PRN PO .MILD PAIN 1-3 OR TEMP Last administered on 09/28/18at 20:26; Admin Dose 650 MG; Start 09/19/18 at 10:30 Ondansetron HCl (Zofran Inj) 4 mg Q4 PRN IV NAUSEA/VOMITING Last administered on 09/22/18at 21:11; Admin Dose 4 MG; Start 09/19/18 at 10:30 Diagnostic Test (Pha) (Accu-Chek) 1 ea 02 XX Last administered on 09/24/18at 01:19; Admin Dose 1 EA; Start 09/20/18 at 02:00 Insulin Aspart (Novolog Insulin Pen) NOVOLOG *MILD* ALGORITHM WITH MEALS BEDTIME SC Last administered on 09/29/18at 11:48; Admin Dose 1 UNIT; Start 09/19/18 at 11:30 Miscellaneous Information 1 ea NOTE XX ; Start 09/19/18 at 11:00 Glucose (Glutose) 15 gm Q15M PRN PO DECREASED GLUCOSE; Start 09/19/18 at 11:00 Glucose (Glutose) 22.5 gm Q15M PRN PO DECREASED GLUCOSE; Start 09/19/18 at 11:00 Dextrose (D50w Syringe) 25 ml Q15M PRN IV DECREASED GLUCOSE; Start 09/19/18 at 11:00 Dextrose (D50w Syringe) 50 ml Q15M PRN IV DECREASED GLUCOSE; Start 09/19/18 at 11:00 Glucagon (Glucagen) 1 mg Q15M PRN IM DECREASED GLUCOSE; Start 09/19/18 at 11:00 Glucose (Glutose) 15 gm Q15M PRN BUCCAL DECREASED GLUCOSE; Start 09/19/18 at 11:00 Famotidine (Pepcid) 20 mg DAILY PO Last administered on 09/29/18 08:10; Admin Dose 20 MG; Start 09/19/18 at 13:00 Nifedipine (Procardia Xl) 60 mg BID PO Last administered on 09/29/18 08:10; Admin Dose 60 MG; Start 09/19/18 at 12:30 Sevelamer Carbonate (Renvela) 0.8 gm WITH MEALS PO Last administered on 09/29/18 11:50; Admin Dose 0.8 GM; Start 09/19/18 at 17:35 Tamsulosin HCl (Flomax) 0.4 mg DAILY PO Last administered on 09/29/18 08:13; Admin Dose 0.4 MG; Start 09/19/18 at 12:30 Minoxidil (Loniten) 5 mg BID PO Last administered on 09/29/18 08:11; Admin Dose 5 MG; Start 09/19/18 at 13:30 Metoclopramide HCl (Reglan) 5 mg Q6 IV Last administered on 09/29/18 11:50; Admin Dose 5 MG; Start 09/20/18 at 00:00 Eye Lubricant (Artificial Tears Oph) 2 drop QID BOTH EYES Last administered on 09/29/18 12:16; Admin Dose 2 DROP; Start 09/20/18 at 20:00 Piperacillin Sod/ Tazobactam Sod 50 ml @ 100 mls/hr Q8 IVPB Last administered on 09/29/18 13:48; Admin Dose 100 MLS/HR; Start 09/21/18 at 18:00 Nitroglycerin (Nitroglycerin 0.2 Mg/Hr) 1 patch DAILY TRANSDERM Last administered on 09/29/18 08:09; Admin Dose 1 PATCH; Start 09/22/18 at 11:30 Clonidine (Catapres) 0.2 mg TID PO Last administered on 09/29/18 12:17; Admin Dose 0.2 MG; Start 09/23/18 at 09:00 Clonidine (Catapres) 0.1 mg Q4H PRN NGT SBP > 170 Last administered on 4/11/19at 05:10; Admin Dose 0.1 MG; Start 09/23/18 at 13:30 Guaifenesin/ Dextromethorphan (Robitussin Dm Liquid Cup) 10 ml Q6 PRN PO COUGH Last administered on 09/26/18at 11:49; Admin Dose 10 ML; Start 09/23/18 at 13:30 Patient Own Medication 1 ea BID LEFT EYE Last administered on 09/29/18at 08:12; Admin Dose 1 EA; Start 09/23/18 at 21:00 Labetalol HCl (Normodyne) 400 mg TID PO Last administered on 09/29/18at 12:17; Admin Dose 400 MG; Start 09/29/18 at 09:00 MARGARITO DAMICO Sep 29, 2018 14:05
--- NOTE | 2018-09-29 15:13 | CONS ---
Assessment/Plan Assessment/Plan Assessment/Plan (Daily) 1. acute hyperkalemia - Improved 2. Hypertensive emergency on NTG drip 3. ESRD on HD MWF with acute hyperklaemia and acute fluid overload 4. Possible Cholecysitits 5. H/o CAD s/p CABG 6. H/O HTN 7. H/o HL 8. H/o DM II Plan: HD ordered for Wednesday, will keep pt on MWF schedule Nifedipine 60mg pO BID , labetalol 400mg BID, Clonidine 0.2 mg TID,Minoxidil 5 mg BID, IV hydralazine prn GI following, on PPI will follow up Consultation Date/Type/Reason Admit Date/Time Sep 19, 2018 at 06:33 Initial Consult Date 09/19/18 Type of Consult NEPHROLOGY Requesting Provider: COREY SARAVIA Date/Time of Note DATE: 09/29/18 TIME: 15:13 24 HR Interval Summary Free Text/Dictation s/p HD 3 L removed Exam/Review of Systems Exam Vitals Vital Signs Date Temp Pulse Resp B/P (MAP) Pulse Ox O2 O2 Flow FiO2 Time Delivery Rate 09/29/18 97.4 62 20 161/75 96 Room Air 15:07 (103) Intake and Output 09/28/18 09/28/18 09/29/18 1414:59 22:59 06:59 IntakeIntake Total 450 ml 50 ml OutputOutput Total 200 ml 3400 ml BalanceBalance -200 ml -2950 ml 50 ml Exam Constitutional: alert, distress Respiratory: clear to auscultation, normal air movement, diminished breath sounds Cardiovascular: regular rate and rhythm, nl pulses Gastrointestinal: soft, non-tender, tender (RUQ) Musculoskeletal: nl extremities to inspection, other Extremities: normal pulses, other (Chest permacath HD catheter ) 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: GOVERNMENT GAUGER II-XII intact, nl mental status, nl speech, nl strength Results Result Diagram: 09/29/1852809/29/18528 Results 24hrs Laboratory Tests Test 09/28/18 16:42 09/28/18 20:37 09/29/18 01:51 09/29/18 05:29 Bedside Glucose 118 229 H 90 White Blood Count 3.5 L Red Blood Count 3.70 L Hemoglobin 10.9 L Hematocrit 33.0 L Mean Corpuscular 89.2 Volume Mean Corpuscular 29.5 Hemoglobin Mean Corpuscular 33.0 Hemoglobin Concent Red Cell 12.9 Distribution Width Platelet Count 94 L Mean Platelet Volume 11.4 H Immature 0.000 L Granulocytes % Neutrophils % 49.8 Lymphocytes % 20.2 Monocytes % 9.8 Eosinophils % 19.9 H Basophils % 0.3 Nucleated Red Blood 0.0 Cells % Immature 0.000 Granulocytes # Neutrophils # 1.7 Lymphocytes # 0.7 L Monocytes # 0.3 Eosinophils # 0.7 H Basophils # 0.0 Nucleated Red Blood 0.0 Cells # Sodium Level 138 Potassium Level 5.1 Chloride Level 95 L Carbon Dioxide Level 26 Anion Gap 17 H Blood Urea Nitrogen 45 H Creatinine 7.98 H Est Glomerular 7 L Filtrat Rate mL/min Glucose Level 99 Calcium Level 8.1 L Test 09/29/18 07:25 09/29/18 11:39 Bedside Glucose 94 154 Medications Medication Current Medications Heparin Sodium (Porcine) (Heparin (1000 Units/ml)) 4,000 unit AFTER DIALYSIS CATHETER Last administered on 09/28/18at 18:22; Admin Dose 3,800 UNIT; Start 09/19/18 at 07:30 Mannitol 50 ml @ 50 mls/5 min WITH DIALYSIS PRN IV DISEQUILIBRIUM SYNDROME PPX; Start 09/19/18 at 07:30 Albumin Human 100 ml @ 100 mls/hr WITH DIALYSIS PRN IV SBP <90 DURING DIALYSIS; Start 09/19/18 at 07:30 Sodium Chloride (NS) -To prime the dialy... DIRECTED FOR HD PRN IV HD; Start 09/19/18 at 07:30 Acetaminophen (Tylenol Tab) 650 mg Q6 PRN PO .MILD PAIN 1-3 OR TEMP Last administered on 09/28/18at 20:26; Admin Dose 650 MG; Start 09/19/18 at 10:30 Ondansetron HCl (Zofran Inj) 4 mg Q4 PRN IV NAUSEA/VOMITING Last administered on 09/22/18at 21:11; Admin Dose 4 MG; Start 09/19/18 at 10:30 Diagnostic Test (Pha) (Accu-Chek) 1 ea 02 XX Last administered on 09/24/18at 01:19; Admin Dose 1 EA; Start 09/20/18 at 02:00 Insulin Aspart (Novolog Insulin Pen) NOVOLOG *MILD* ALGORITHM WITH MEALS BEDTIME SC Last administered on 09/29/18 11:48; Admin Dose 1 UNIT; Start 09/19/18 at 11:30 Miscellaneous Information 1 ea NOTE XX ; Start 09/19/18 at 11:00 Glucose (Glutose) 15 gm Q15M PRN PO DECREASED GLUCOSE; Start 09/19/18 at 11:00 Glucose (Glutose) 22.5 gm Q15M PRN PO DECREASED GLUCOSE; Start 09/19/18 at 11:00 Dextrose (D50w Syringe) 25 ml Q15M PRN IV DECREASED GLUCOSE; Start 09/19/18 at 11:00 Dextrose (D50w Syringe) 50 ml Q15M PRN IV DECREASED GLUCOSE; Start 09/19/18 at 11:00 Glucagon (Glucagen) 1 mg Q15M PRN IM DECREASED GLUCOSE; Start 09/19/18 at 11:00 Glucose (Glutose) 15 gm Q15M PRN BUCCAL DECREASED GLUCOSE; Start 09/19/18 at 11:00 Famotidine (Pepcid) 20 mg DAILY PO Last administered on 09/29/18at 08:10; Admin Dose 20 MG; Start 09/19/18 at 13:00 Nifedipine (Procardia Xl) 60 mg BID PO Last administered on 09/29/18 08:10; Admin Dose 60 MG; Start 09/19/18 at 12:30 Sevelamer Carbonate (Renvela) 0.8 gm WITH MEALS PO Last administered on 09/29/18 11:50; Admin Dose 0.8 GM; Start 09/19/18 at 17:35 Tamsulosin HCl (Flomax) 0.4 mg DAILY PO Last administered on 09/29/18 08:13; Admin Dose 0.4 MG; Start 09/19/18 at 12:30 Minoxidil (Loniten) 5 mg BID PO Last administered on 09/29/18 08:11; Admin Dose 5 MG; Start 09/19/18 at 13:30 Metoclopramide HCl (Reglan) 5 mg Q6 IV Last administered on 09/29/18 11:50; Admin Dose 5 MG; Start 09/20/18 at 00:00 Eye Lubricant (Artificial Tears Oph) 2 drop QID BOTH EYES Last administered on 09/29/18 12:16; Admin Dose 2 DROP; Start 09/20/18 at 20:00 Piperacillin Sod/ Tazobactam Sod 50 ml @ 100 mls/hr Q8 IVPB Last administered on 09/29/18 13:48; Admin Dose 100 MLS/HR; Start 09/21/18 at 18:00 Nitroglycerin (Nitroglycerin 0.2 Mg/Hr) 1 patch DAILY TRANSDERM Last administe red on 09/29/18 08:09; Admin Dose 1 PATCH; Start 09/22/18 at 11:30 Clonidine (Catapres) 0.2 mg TID PO Last administered on 09/29/18 12:17; Admin Dose 0.2 MG; Start 09/23/18 at 09:00 Clonidine (Catapres) 0.1 mg Q4H PRN NGT SBP > 170 Last administered on 09/29/18 05:10; Admin Dose 0.1 MG; Start 09/23/18 at 13:30 Guaifenesin/ Dextromethorphan (Robitussin Dm Liquid Cup) 10 ml Q6 PRN PO COUGH Last administered on 09/26/18 11:49; Admin Dose 10 ML; Start 09/23/18 at 13:30 Patient Own Medication 1 ea BID LEFT EYE Last administered on 09/29/18 08:12; Admin Dose 1 EA; Start 09/23/18 at 21:00 Labetalol HCl (Normodyne) 400 mg TID PO Last administered on 09/29/18 12:17; Admin Dose 400 MG; Start 09/29/18 at 09:00 VALERIA RODRÍGUEZ MD Sep 29, 2018 15:13
[2018-09-30] VITALS (25 sets, daily range): BP systolic 124–166; BP diastolic 58–75; PULSE 58–71; RESP 18–20
[2018-09-30] MEDS: ACCU-CHEK XX SCH (02:00)
[2018-09-30] MEDS: METOCLOPRAMIDE 10 MG INJ IV SCH ×4 (05:54→23:29)
[2018-09-30] MEDS: PIPER-TAZO 2.25 GM (PMX) 50 ML IVPB SCH (05:54)
[2018-09-30] MEDS: INSULIN ASPART [NOVOLOG] 3 ML PEN SC SCH ×4 (08:00→22:10)
[2018-09-30] MEDS: SEVELAMER CARBONATE 0.8 GM PKT PO SCH ×3 (08:53→17:37)
[2018-09-30] MEDS: ATROPINE SULFATE 1% LEFT EYE SCH ×2 (08:54→22:16)
[2018-09-30] MEDS: ARTIFICIAL TEARS 15 ML OPH BOTH EYES SCH ×4 (08:55→22:16)
[2018-09-30] MEDS: TAMSULOSIN (SR) 0.4 MG CAP PO SCH (08:57)
[2018-09-30] MEDS: FAMOTIDINE 20 MG TAB PO SCH (08:57)
[2018-09-30] MEDS: MINOXIDIL 2.5 MG TAB PO SCH ×2 (08:57→22:15)
[2018-09-30] MEDS: LABETALOL 200 MG TAB PO SCH ×3 (08:58→22:15)
[2018-09-30] MEDS: NIFEdipine (XL) 60 MG TAB PO SCH ×2 (08:59→22:14)
[2018-09-30] MEDS: NITROGLYCERIN 0.2 MG/HR PATCH TRANSDERM SCH (09:01)
--- NOTE | 2018-09-30 09:33 | CONS ---
Assessment/Plan Assessment/Plan Assessment/Plan (Daily) Assessment and recommendations; 1. Patient admitted with hyperkalemia and mild CHF exacerbation with significant interval clinical improvement. 2. Focal pleural-based density in the right lower lobe, likely representing focal pneumonia. 3. Chronic renal failure, hemodialysis. 4. History of hypertension. Patient also was quite hypertensive on admission and required nitroglycerin drip administration. 5. History of prior CABG, BPH . 6. Anemia and thrombocytopenia. 7. Questionable acute cholecystitis on admission, however HIDA scan is negative and the patient now is completely spermatic. Discontinue Zosyn. Consider discharge. Patient may need to have follow-up CT imaging of the chest in about 3-4 weeks to ensure complete resolution of the right pleural-based density as it is not vis ualized on plain chest radiograph. Consultation Date/Type/Reason Admit Date/Time Sep 19, 2018 at 06:33 Initial Consult Date 09/21/18 Type of Consult Pulmonary Pulmonary consult requested for evaluation of shortness of breath. Patient is a pleasant 57-year-old male who came into the emergency room with complaints of nausea vomiting and mild shortness of breath. Upon further evaluation patient was diagnosed with severe hyperkalemia, also ultrasound abdomen was done which was indicative of possibly acute cholecystitis. However HIDA scan is negative and the patient also denies any further abdominal pain, nausea vomiting. Patient was emergently hemodialyzed yesterday because of hypertension, was transferred to ICU and currently maintained on nitroglycerin drip. Patient denies any shortness of breath, any chest pain, fever, cough, sputum production. Past medical history; 1. Hypertension. 2. End-stage renal disease, hemodialysis. 3. Chronic anemia. 4. Diabetes. 5. BPH. 6. Recent admission for left lower lobe pneumonia, status post biopsy which revealed organizing pneumonia. 7. Left corneal opacity. 8. Prior CABG. Medications; reviewed. Allergies; as outlined above. Social history; noncontributory. Family history; patient is single, has 2 children. Occupational history; patient is on disability. Review of systems; denies any headache, visual changes, complains of left eye blindness. Denies any further shortness of breath. Any coughing, wheezing, sputum production. Denies any abdominal pain, nausea vomiting. Any melena or hematochezia. Any edema orthopnea. Any weight change. General exam; middle-aged male, awake and alert. Currently no distress. Requesting Provider: COREY SARAVIA Date/Time of Note DATE: 09/30/18 TIME: 09:30 24 HR Interval Summary Free Text/Dictation Patient's condition is stable. Denies any shortness of breath, fever, abdominal pain, nausea or vomiting. General exam; middle-aged male, awake and alert. Currently in no distress. Exam/Review of Systems Exam Vitals Vital Signs Date Temp Pulse Resp B/P (MAP) Pulse Ox O2 O2 Flow FiO2 Time Delivery Rate 09/30/18 61 08:59 09/30/18 97.7 20 151/72 96 Room Air 07:37 (98) Intake and Output 09/29/18 09/29/18 09/30/18 1414:59 22:59 06:59 IntakeIntake Total 450 ml BalanceBalance 450 ml Exam H EENT exam; supple neck, no lymphadenopathy. No JVD. Patient has a left corneal opacity. Has fair dentition. No neck masses. Chest exam; clear to auscultation. S1-S2 audible, no murmurs. Regular rhythm. There is a well-healed sternal scar. Abdomen exam; soft, mildly protuberant. Nontender. No organomegaly. Bowel sounds audible. Extremity exam; no peripheral edema clubbing. MUSIC MANAGER exam; no focal deficit. Results Result Diagram: 09/29/18 0529 09/29/18 0529 Results 24hrs Laboratory Tests Test 09/29/18 11:39 09/29/18 16:37 09/29/18 21:27 09/30/18 07:51 Bedside Glucose 154 135 162 107 Medications Medication Current Medications Heparin Sodium (Porcine) (Heparin (1000 Units/ml)) 4,000 unit AFTER DIALYSIS CATHETER Last administered on 09/28/18at 18:22; Admin Dose 3,800 UNIT; Start 09/19/18 at 07:30 Mannitol 50 ml @ 50 mls/5 min WITH DIALYSIS PRN IV DISEQUILIBRIUM SYNDROME PPX; Start 09/19/18 at 07:30 Albumin Human 100 ml @ 100 mls/hr WITH DIALYSIS PRN IV SBP <90 DURING DIALY SIS; Start 09/19/18 at 07:30 Sodium Chloride (NS) -To prime the dialy... DIRECTED FOR HD PRN IV HD; Start 09/19/18 at 07:30 Acetaminophen (Tylenol Tab) 650 mg Q6 PRN PO .MILD PAIN 1-3 OR TEMP Last a dministered on 09/28/18at 20:26; Admin Dose 650 MG; Start 09/19/18 at 10:30 Ondansetron HCl (Zofran Inj) 4 mg Q4 PRN IV NAUSEA/VOMITING Last administered on 09/22/18 21:11; Admin Dose 4 MG; Start 09/19/18 at 10:30 Diagnostic Test (Pha) (Accu-Chek) 1 ea 02 XX Last administered on 09/24/18 01:19; Admin Dose 1 EA; Start 09/20/18 at 02:00 Insulin Aspart (Novolog Insulin Pen) NOVOLOG *MILD* ALGORITHM WITH MEALS BEDTIME SC Last administered on 09/29/18 11:48; Admin Dose 1 UNIT; Start 09/19/18 at 11:30 Miscellaneous Information 1 ea NOTE XX ; Start 09/19/18 at 11:00 Glucose (Glutose) 15 gm Q15M PRN PO DECREASED GLUCOSE; Start 09/19/18 at 11:00 Glucose (Glutose) 22.5 gm Q15M PRN PO DECREASED GLUCOSE; Start 09/19/18 at 11:00 Dextrose (D50w Syringe) 25 ml Q15M PRN IV DECREASED GLUCOSE; Start 09/19/18 at 11:00 Dextrose (D50w Syringe) 50 ml Q15M PRN IV DECREASED GLUCOSE; Start 09/19/18 at 11:00 Glucagon (Glucagen) 1 mg Q15M PRN IM DECREASED GLUCOSE; Start 09/19/18 at 11:00 Glucose (Glutose) 15 gm Q15M PRN BUCCAL DECREASED GLUCOSE; Start 09/19/18 at 11:00 Famotidine (Pepcid) 20 mg DAILY PO Last administered on 09/30/18 08:57; Admin Dose 20 MG; Start 09/19/18 at 13:00 Nifedipine (Procardia Xl) 60 mg BID PO Last administered on 09/29/18at 21:20; Admin Dose 60 MG; Start 09/19/18 at 12:30 Sevelamer Carbonate (Renvela) 0.8 gm WITH MEALS PO Last administered on 09/30/18 08:53; Admin Dose 0.8 GM; Start 09/19/18 at 17:35 Tamsulosin HCl (Flomax) 0.4 mg DAILY PO Last administered on 09/30/18 08:57; Admin Dose 0.4 MG; Start 09/19/18 at 12:30 Minoxidil (Loniten) 5 mg BID PO Last administered on 09/30/18 08:57; Admin Dose 5 MG; Start 09/19/18 at 13:30 Metoclopramide HCl (Reglan) 5 mg Q6 IV Last administered on 09/30/18 05:54; Admin Dose 5 MG; Start 09/20/18 at 00:00 Eye Lubricant (Artificial Tears Oph) 2 drop QID BOTH EYES Last administered on 09/30/18 08:55; Admin Dose 2 DROP; Start 09/20/18 at 20:00 Piperacillin Sod/ Tazobactam Sod 50 ml @ 100 mls/hr Q8 IVPB Last administered on 09/30/18 05:54; Admin Dose 100 MLS/HR; Start 09/21/18 at 18:00 Nitroglycerin (Nitroglycerin 0.2 Mg/Hr) 1 patch DAILY TRANSDERM Last administered on 09/30/18 09:01; Admin Dose 1 PATCH; Start 09/22/18 at 11:30 Clonidine (Catapres) 0.2 mg TID PO Last administered on 09/29/18 21:21; Admin Dose 0.2 MG; Start 09/23/18 at 09:00 Clonidine (Catapres) 0.1 mg Q4H PRN NGT SBP > 170 Last administered on 9at 23:50; Admin Dose 0.1 MG; Start 09/23/18 at 13:30 Guaifenesin/ Dextromethorphan (Robitussin Dm Liquid Cup) 10 ml Q6 PRN PO COUGH Last administered on 09/26/18 11:49; Admin Dose 10 ML; Start 09/23/18 at 13:30 Patient Own Medication 1 ea BID LEFT EYE Last administered on 09/30/18 08:54; Admin Dose 1 EA; Start 09/23/18 at 21:00 Labetalol HCl (Normodyne) 400 mg TID PO Last administered on 09/29/18 21:20; Admin Dose 400 MG; Start 09/29/18 at 09:00 JANES DOMINGO Sep 30, 2018 09:33
--- NOTE | 2018-09-30 10:24 | CONS ---
Assessment/Plan Assessment/Plan Assessment/Plan (Daily) 1. acute hyperkalemia - Improved 2. Hypertensive emergency on NTG drip 3. ESRD on HD MWF with acute hyperklaemia and acute fluid overload 4. Possible Cholecysitits 5. H/o CAD s/p CABG 6. H/O HTN 7. H/o HL 8. H/o DM II Plan: s/p Hd today 2.5 L removed, will keep pt on MWF schedule Nifedipine 60mg pO BID , labetalol 400mg BID, Clonidine 0.2 mg TID,Minoxidil 5 mg BID, IV hydralazine prn GI following, on PPI will follow up Consultation Date/Type/Reason Admit Date/Time Sep 19, 2018 at 06:33 Initial Consult Date 09/19/18 Type of Consult NEPHROLOGY Requesting Provider: COREY SARAVIA Date/Time of Note DATE: 09/30/18 TIME: 10:24 24 HR Interval Summary Free Text/Dictation s/p HD today 2.5 L removed, BP stable, afebrile Exam/Review of Systems Exam Vitals Vital Signs Date Temp Pulse Resp B/P (MAP) Pulse Ox O2 O2 Flow FiO2 Time Delivery Rate 09/30/18 61 08:59 09/30/18 97.7 20 151/72 96 Room Air 07:37 (98) Intake and Output 09/29/18 09/29/18 09/30/18 1414:59 22:59 06:59 IntakeIntake Total 450 ml BalanceBalance 450 ml Exam Constitutional: alert, distress Respiratory: clear to auscultation, normal air movement, diminished breath sounds Cardiovascular: regular rate and rhythm, nl pulses Gastrointestinal: soft, non-tender, tender (RUQ) Musculoskeletal: nl extremities to inspection, other Extremities: normal pulses, other (Chest permacath HD catheter ) 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: TANK COOPER II-XII intact, nl mental status, nl speech, nl strength Results Result Diagram: 09/29/1852809/29/18528 Results 24hrs Laboratory Tests Test 09/29/18 11:39 09/29/18 16:37 09/29/18 21:27 09/30/18 07:51 Bedside Glucose 154 135 162 107 Medications Medication Current Medications Heparin Sodium (Porcine) (Heparin (1000 Units/ml)) 4,000 unit AFTER DIALYSIS CATHETER Last administered on 09/28/18at 18:22; Admin Dose 3,800 UNIT; Start 09/19/18 at 07:30 Mannitol 50 ml @ 50 mls/5 min WITH DIALYSIS PRN IV DISEQUILIBRIUM SYNDROME PPX; Start 09/19/18 at 07:30 Albumin Human 100 ml @ 100 mls/hr WITH DIALYSIS PRN IV SBP <90 DURING DIALYSIS; Start 09/19/18 at 07:30 Sodium Chloride (NS) -To prime the dialy... DIRECTED FOR HD PRN IV HD; Start 09/19/18 at 07:30 Acetaminophen (Tylenol Tab) 650 mg Q6 PRN PO .MILD PAIN 1-3 OR TEMP Last administered on 09/28/18at 20:26; Admin Dose 650 MG; Start 09/19/18 at 10:30 Ondansetron HCl (Zofran Inj) 4 mg Q4 PRN IV NAUSEA/VOMITING Last administered on 09/22/18at 21:11; Admin Dose 4 MG; Start 09/19/18 at 10:30 Diagnostic Test (Pha) (Accu-Chek) 1 ea 02 XX Last administered on 09/24/18at 01:19; Admin Dose 1 EA; Start 09/20/18 at 02:00 Insulin Aspart (Novolog Insulin Pen) NOVOLOG *MILD* ALGORITHM WITH MEALS BEDTIME SC Last administered on 09/29/18at 11:48; Admin Dose 1 UNIT; Start 09/19/18 at 11:30 Miscellaneous Information 1 ea NOTE XX ; Start 09/19/18 at 11:00 Glucose (Glutose) 15 gm Q15M PRN PO DECREASED GLUCOSE; Start 09/19/18 at 11:00 Glucose (Glutose) 22.5 gm Q15M PRN PO DECREASED GLUCOSE; Start 09/19/18 at 11:00 Dextrose (D50w Syringe) 25 ml Q15M PRN IV DECREASED GLUCOSE; Start 09/19/18 at 11:00 Dextrose (D50w Syringe) 50 ml Q15M PRN IV DECREASED GLUCOSE; Start 09/19/18 at 11:00 Glucagon (Glucagen) 1 mg Q15M PRN IM DECREASED GLUCOSE; Start 09/19/18 at 11:00 Glucose (Glutose) 15 gm Q15M PRN BUCCAL DECREASED GLUCOSE; Start 09/19/18 at 11:00 Famotidine (Pepcid) 20 mg DAILY PO Last administered on 09/30/18 08:57; Admin Dose 20 MG; Start 09/19/18 at 13:00 Nifedipine (Procardia Xl) 60 mg BID PO Last administered on 09/29/18 21:20; Admin Dose 60 MG; Start 09/19/18 at 12:30 Sevelamer Carbonate (Renvela) 0.8 gm WITH MEALS PO Last administered on 09/30/18 08:53; Admin Dose 0.8 GM; Start 09/19/18 at 17:35 Tamsulosin HCl (Flomax) 0.4 mg DAILY PO Last administered on 09/30/18 08:57; Admin Dose 0.4 MG; Start 09/19/18 at 12:30 Minoxidil (Loniten) 5 mg BID PO Last administered on 09/30/18 08:57; Admin Dose 5 MG; Start 09/19/18 at 13:30 Metoclopramide HCl (Reglan) 5 mg Q6 IV Last administered on 09/30/18 05:54; Admin Dose 5 MG; Start 09/20/18 at 00:00 Eye Lubricant (Artificial Tears Oph) 2 drop QID BOTH EYES Last administered on 09/30/18 08:55; Admin Dose 2 DROP; Start 09/20/18 at 20:00 Nitroglycerin (Nitroglycerin 0.2 Mg/Hr) 1 patch DAILY TRANSDERM Last administered on 09/30/18 09:01; Admin Dose 1 PATCH; Start 09/22/18 at 11:30 Clonidine (Catapres) 0.2 mg TID PO Last administered on 09/29/18 21:21; Admin Dose 0.2 MG; Start 09/23/18 at 09:00 Clonidine (Catapres) 0.1 mg Q4H PRN NGT SBP > 170 Last administered on 09/29/18 23:50; Admin Dose 0.1 MG; Start 09/23/18 at 13:30 Guaifenesin/ Dextromethorphan (Robitussin Dm Liquid Cup) 10 ml Q6 PRN PO COUGH Last administered on 09/26/18 11:49; Admin Dose 10 ML; Start 09/23/18 at 13:30 Patient Own Medication 1 ea BID LEFT EYE Last administered on 09/30/18 08:54; Admin Dose 1 EA; Start 09/23/18 at 21:00 Labetalol HCl (Normodyne) 400 mg TID PO Last administered on 09/29/18at 21:20; Admin Dose 400 MG; Start 09/29/18 at 09:00 VALERIA RODRÍGUEZ MD Sep 30, 2018 10:24
--- NOTE | 2018-09-30 12:22 | PN ---
Date/Time of Note Date/Time of Note DATE: 09/30/18 TIME: 12:21 Assessment/Plan VTE Prophylaxis Risk score (from Ns)>0 risk: 4 SCD applied (from Ns): No SCD contraindicated: other Pharmacological prophylaxis: other Pharm contraindication: other Lines/Catheters IV [facility]ter Type [facility]from [facility] Urinary Cath still in place: No Assessment/Plan Assessment/Plan - Hypertensive emergency, s/p nitroglycerin drip, Continue labetalol call, minoxidil and Procardia. - pepr cardio - Hyperkalemia, resolved s/p emergent hemodialysis - Dr. Ortez is following in nephrology consultation. - Abdominal pain most likely secondary to gastritis versus PUD, abdominal ultrasound notable for distended gallbladder with marked wall thickening. Continue PPI and Reglan. - Dr. Winkler is following in GI consultation. - Possible cholecystitis, continue Zosyn - Pancytopenia - LLL mass decreased with pleural consolidation increased in volume per recent CT. - Dr Mueller is following in pulmonology consultation. - HTN - DM - CAD, Hx of CABG - ESRD on HD - Legal blindness. No acute issue. - MRSA of nares colonization Further recommendations based on clinical course. Plan of care discussed with Dr. Reagan. Result Diagram: 09/29/18 0509/29/18528 Results 24hrs Laboratory Tests Test 09/29/18 16:37 09/29/18 21:27 09/30/18 07:51 09/30/18 11:52 Bedside Glucose 135 162 107 160 Subjective 24 Hr Interval Summary Free Text/Dictation c/o constipation- Eyes: other (blind both eyes) ENT: no complaints (blind both eyes) Respiratory: no complaints Cardiovascular: no complaints Gastrointestinal: no complaints Genitourinary: no complaints Musculoskeletal: no complaints Skin: no complaints Neurologic: no complaints Lymphatic: no complaints Psychological: nl mood/affect Immunologic: no complaints Exam/Review of Systems Exam Vitals Vital Signs Date Temp Pulse Resp B/P (MAP) Pulse Ox O2 O2 Flow FiO2 Time Delivery Rate 09/30/18 97.4 59 20 163/75 94 Room Air 10:57 (104) Intake and Output 09/29/18 09/29/18 09/30/18 1515:00 23:00 07:00 IntakeIntake Total 450 ml BalanceBalance 450 ml Constitutional: alert, well developed Psych: nl mood/affect Head: atraumatic Eyes: nl lids ENMT: nl external ears & nose Neck: non-tender Respiratory: clear to auscultation Cardiovascular: nl pulses, other (S1S2) Gastrointestinal: soft, non-tender Musculoskeletal: muscle weakness 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: nl speech, other (alert/awake/respnsive) Skin: nl turgor Lymph: nontender Results Results 24hrs Laboratory Tests Test 09/29/18 16:37 09/29/18 21:27 09/30/18 07:51 09/30/18 11:52 Bedside Glucose 135 162 107 160 Medications Medication Current Medications Heparin Sodium (Porcine) (Heparin (1000 Units/ml)) 4,000 unit AFTER DIALYSIS CATHETER Last administered on 09/28/18at 18:22; Admin Dose 3,800 UNIT; Start 09/19/18 at 07:30 Mannitol 50 ml @ 50 mls/5 min WITH DIALYSIS PRN IV DISEQUILIBRIUM SYNDROME PPX; Start 09/19/18 at 07:30 Albumin Human 100 ml @ 100 mls/hr WITH DIALYSIS PRN IV SBP <90 DURING DIALYSIS; Start 09/19/18 at 07:30 Sodium Chloride (NS) -To prime the dialy... DIRECTED FOR HD PRN IV HD; Start 09/19/18 at 07:30 Acetaminophen (Tylenol Tab) 650 mg Q6 PRN PO .MILD PAIN 1-3 OR TEMP Last administered on 09/28/18at 20:26; Admin Dose 650 MG; Start 09/19/18 at 10:30 Ondansetron HCl (Zofran Inj) 4 mg Q4 PRN IV NAUSEA/VOMITING Last administered on 09/22/18at 21:11; Admin Dose 4 MG; Start 09/19/18 at 10:30 Diagnostic Test (Pha) (Accu-Chek) 1 ea 02 XX Last administered on 09/24/18 01:19; Admin Dose 1 EA; Start 09/20/18 at 02:00 Insulin Aspart (Novolog Insulin Pen) NOVOLOG *MILD* ALGORITHM WITH MEALS BEDTIME SC Last administered on 09/29/18at 11:48; Admin Dose 1 UNIT; Start 09/19/18 at 11:30 Miscellaneous Information 1 ea NOTE XX ; Start 09/19/18 at 11:00 Glucose (Glutose) 15 gm Q15M PRN PO DECREASED GLUCOSE; Start 09/19/18 at 11:00 Glucose (Glutose) 22.5 gm Q15M PRN PO DECREASED GLUCOSE; Start 09/19/18 at 11:00 Dextrose (D50w Syringe) 25 ml Q15M PRN IV DECREASED GLUCOSE; Start 09/19/18 at 11:00 Dextrose (D50w Syringe) 50 ml Q15M PRN IV DECREASED GLUCOSE; Start 09/19/18 at 11:00 Glucagon (Glucagen) 1 mg Q15M PRN IM DECREASED GLUCOSE; Start 09/19/18 at 11:00 Glucose (Glutose) 15 gm Q15M PRN BUCCAL DECREASED GLUCOSE; Start 09/19/18 at 11:00 Famotidine (Pepcid) 20 mg DAILY PO Last administered on 09/30/18 08:57; Admin Dose 20 MG; Start 09/19/18 at 13:00 Nifedipine (Procardia Xl) 60 mg BID PO Last administered on 09/29/18 21:20; Admin Dose 60 MG; Start 09/19/18 at 12:30 Sevelamer Carbonate (Renvela) 0.8 gm WITH MEALS PO Last administered on 09/30/18 11:59; Admin Dose 0.8 GM; Start 09/19/18 at 17:35 Tamsulosin HCl (Flomax) 0.4 mg DAILY PO Last administered on 09/30/18 08:57; Admin Dose 0.4 MG; Start 09/19/18 at 12:30 Minoxidil (Loniten) 5 mg BID PO Last administered on 09/30/18 08:57; Admin Dose 5 MG; Start 09/19/18 at 13:30 Metoclopramide HCl (Reglan) 5 mg Q6 IV Last administered on 09/30/18 11:59; Admin Dose 5 MG; Start 09/20/18 at 00:00 Eye Lubricant (Artificial Tears Oph) 2 drop QID BOTH EYES Last administered on 09/30/18 08:55; Admin Dose 2 DROP; Start 09/20/18 at 20:00 Nitroglycerin (Nitroglycerin 0.2 Mg/Hr) 1 patch DAILY TRANSDERM Last administered on 09/30/18 09:01; Admin Dose 1 PATCH; Start 09/22/18 at 11:30 Clonidine (Catapres) 0.2 mg TID PO Last administered on 09/29/18 21:21; Admin Dose 0.2 MG; Start 09/23/18 at 09:00 Clonidine (Catapres) 0.1 mg Q4H PRN NGT SBP > 170 Last administered on 09/29/18 23:50; Admin Dose 0.1 MG; Start 09/23/18 at 13:30 Guaifenesin/ Dextromethorphan (Robitussin Dm Liquid Cup) 10 ml Q6 PRN PO COUGH Last administered on 09/26/18 11:49; Admin Dose 10 ML; Start 09/23/18 at 13:30 Patient Own Medication 1 ea BID LEFT EYE Last administered on 09/30/18 08:54; Admin Dose 1 EA; Start 09/23/18 at 21:00 Labetalol HCl (Normodyne) 400 mg TID PO Last administered on 09/29/18 21:20; Admin Dose 400 MG; Start 09/29/18 at 09:00 COREY SARAVIA Sep 30, 2018 12:22
[2018-09-30] MEDS: LACTULOSE 30ML CUP PO SCH (14:00)
--- NOTE | 2018-09-30 18:24 | CONS ---
Consult Date/Type/Reason Admit Date/Time Sep 19, 2018 at 06:33 Initial Consult Date 09/23/18 Type of Consultation: cv Requesting Provider: COREY SARAVIA Date/Time of Note DATE: 09/30/18 TIME: 18:24 Subjective Interventional cardiology follow-up progress note Subjective: Discussed with the staff and Telemetry was reviewed. Patient has remains normal sinus rhythm Patient with no chest pain or pressure no palpitation no shortness of breath now. His blood pressure has been elevated last night Objective: General: no acute distress HEENT: NC/AT. 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 no stridor. CV: RRR. systolic murmur; no gallop or rubs. PULM: no wheezing or rhonchi. GI: SOFT, NT, ND, no rebound or guarding Extremity: trace B/L LE edema. no clubbing. neuro: awake and alert, Psych: calm and pleasant rectal: deferred : normal Objective Vitals Vital Signs Date Temp Pulse Resp B/P (MAP) Pulse Ox O2 O2 Flow FiO2 Time Delivery Rate 09/30/18 63 16:28 09/30/18 98.1 20 152/74 97 Room Air 15:06 (100) Intake and Output 09/29/18 09/29/18 09/30/18 1515:00 23:00 07:00 IntakeIntake Total 450 ml 50 ml BalanceBalance 450 ml 50 ml Results/Medications Result Diagram: 09/29/18 0529 09/29/18 0529 Results 24 hrs Laboratory Tests Test 09/29/18 21:27 09/30/18 07:51 09/30/18 11:52 09/30/18 16:59 Bedside Glucose 162 107 160 105 Home Meds Active Scripts Nifedipine (Procardia Xl) 60 Mg Tab.er.24, 60 MG PO BID for 30 Days, TAB Prov:MARGARITO DAMICO 08/25/18 Minoxidil* (Lonitin*) 2.5 Mg Tab, 5 MG PO BID for 30 Days, TAB Prov:MARGARITO DAMICO 08/25/18 Labetalol Hcl* (Labetalol Hcl*) 200 Mg Tablet, 400 MG PO BID for 30 Days, TAB Prov:MARGARITO DAMICO 08/25/18 Reported Medications Isosorbide Mononitrate* (Isosorbide Mononitrate*) 60 Mg Tab.er.24h, 60 MG PO DAILY, TAB 08/15/18 Losartan Potassium* (Losartan Potassium*) 50 Mg Tablet, 50 MG PO DAILY, TAB 08/15/18 Famotidine* (Famotidine*) 20 Mg Tablet, 20 MG PO BID, #60 TAB 08/15/18 Atropine Sulfate/0.9 %Sod Chlr (Atropine 0.01%-Ns Eye Drops) 10 Ml Drops, 15 ML OP BID, BOTTLE 08/15/18 Tamsulosin Hcl* (Tamsulosin Hcl*) 0.4 Mg Cap.er.24h, 0.4 MG PO DAILY, CAP 08/15/18 Clonidine Hcl* (Clonidine Hcl*) 0.1 Mg Tab, 0.2 MG PO BID PRN for ELEVATED BLOOD PRESSURE, TAB 08/15/18 Sevelamer Carbonate* (Renvela*) 800 Mg Tablet, 0.8 GM PO WITH MEALS, TAB 08/15/18 Medications Current Medications Heparin Sodium (Porcine) (Heparin (1000 Units/ml)) 4,000 unit AFTER DIALYSIS CATHETER Last administered on 09/28/18at 18:22; Admin Dose 3,800 UNIT; Start 09/19/18 at 07:30 Mannitol 50 ml @ 50 mls/5 min WITH DIALYSIS PRN IV DISEQUILIBRIUM SYNDROME PPX; Start 09/19/18 at 07:30 Albumin Human 100 ml @ 100 mls/hr WITH DIALYSIS PRN IV SBP <90 DURING DIALYSIS; Start 09/19/18 at 07:30 Sodium Chloride (NS) -To prime the dialy... DIRECTED FOR HD PRN IV HD; Start 09/19/18 at 07:30 Acetaminophen (Tylenol Tab) 650 mg Q6 PRN PO .MILD PAIN 1-3 OR TEMP Last administered on 09/28/18at 20:26; Admin Dose 650 MG; Start 09/19/18 at 10:30 Ondansetron HCl (Zofran Inj) 4 mg Q4 PRN IV NAUSEA/VOMITING Last administered on 09/22/18at 21:11; Admin Dose 4 MG; Start 09/19/18 at 10:30 Diagnostic Test (Pha) (Accu-Chek) 1 ea 02 XX Last administered on 09/24/18at 01:19; Admin Dose 1 EA; Start 09/20/18 at 02:00 Insulin Aspart (Novolog Insulin Pen) NOVOLOG *MILD* ALGORITHM WITH MEALS BEDTIME SC Last administered on 09/30/18 12:39; Admin Dose 1 UNIT; Start 09/19/18 at 11:30 Miscellaneous Information 1 ea NOTE XX ; Start 09/19/18 at 11:00 Glucose (Glutose) 15 gm Q15M PRN PO DECREASED GLUCOSE; Start 09/19/18 at 11:00 Glucose (Glutose) 22.5 gm Q15M PRN PO DECREASED GLUCOSE; Start 09/19/18 at 11:00 Dextrose (D50w Syringe) 25 ml Q15M PRN IV DECREASED GLUCOSE; Start 09/19/18 at 11:00 Dextrose (D50w Syringe) 50 ml Q15M PRN IV DECREASED GLUCOSE; Start 09/19/18 at 11:00 Glucagon (Glucagen) 1 mg Q15M PRN IM DECREASED GLUCOSE; Start 09/19/18 at 11:00 Glucose (Glutose) 15 gm Q15M PRN BUCCAL DECREASED GLUCOSE; Start 09/19/18 at 11:00 Famotidine (Pepcid) 20 mg DAILY PO Last administered on 09/30/18 08:57; Admin Dose 20 MG; Start 09/19/18 at 13:00 Nifedipine (Procardia Xl) 60 mg BID PO Last administered on 09/29/18 21:20; Admin Dose 60 MG; Start 09/19/18 at 12:30 Sevelamer Carbonate (Renvela) 0.8 gm WITH MEALS PO Last administered on 09/30/18 17:37; Admin Dose 0.8 GM; Start 09/19/18 at 17:35 Tamsulosin HCl (Flomax) 0.4 mg DAILY PO Last administered on 09/30/18 08:57; Admin Dose 0.4 MG; Start 09/19/18 at 12:30 Minoxidil (Loniten) 5 mg BID PO Last administered on 09/30/18 08:57; Admin Dose 5 MG; Start 09/19/18 at 13:30 Metoclopramide HCl (Reglan) 5 mg Q6 IV Last administered on 09/30/18 17:37; Admin Dose 5 MG; Start 09/20/18 at 00:00 Eye Lubricant (Artificial Tears Oph) 2 drop QID BOTH EYES Last administered on 09/30/18 17:37; Admin Dose 2 DROP; Start 09/20/18 at 20:00 Nitroglycerin (Nitroglycerin 0.2 Mg/Hr) 1 patch DAILY TRANSDERM Last administered on 09/30/18 09:01; Admin Dose 1 PATCH; Start 09/22/18 at 11:30 Clonidine (Catapres) 0.2 mg TID PO Last administered on 09/30/18 12:51; Admin Dose 0.2 MG; Start 09/23/18 at 09:00 Clonidine (Catapres) 0.1 mg Q4H PRN NGT SBP > 170 Last administered on 09/29/18 23:50; Admin Dose 0.1 MG; Start 09/23/18 at 13:30 Guaifenesin/ Dextromethorphan (Robitussin Dm Liquid Cup) 10 ml Q6 PRN PO COUGH Last administered on 09/26/18 11:49; Admin Dose 10 ML; Start 09/23/18 at 13:30 Patient Own Medication 1 ea BID LEFT EYE Last administered on 09/30/18 08:54; Admin Dose 1 EA; Start 09/23/18 at 21:00 Labetalol HCl (Normodyne) 400 mg TID PO Last administered on 09/30/18 12:06; Admin Dose 400 MG; Start 09/29/18 at 09:00 Lactulose (Enulose) 20 gm DAILY PO ; Start 09/30/18 at 14:00 Assessment/Plan Hospital Course (Demo Recall) 1. Hypertensive urgency/resistant hypertension: improved now 2. History of coronary artery disease 3. History of most likely MA and coronary artery bypass graft 4. Renal failure on dialysis 5. Pulmonary vascular congestion/fluid overload 6. Diabetes 7. Dyslipidemia 8. Hyperkalemia 9. Pulmonary nodule 10. severe hyper K: corrected with 11. Pneumonia recently treated with abx Recommendations: Continue with the Procardia. cont labetalol as Continue with minoxidil Clonidine will be continued as a as needed as well. Lipid panel reviewed and showed LDL at goal of less than 70 Hemodialysis as per renal DC planning as per internal medicine Thank you for his referral. We will continue to follow along with you as needed NAHUN RUSSELL MD [facility] NAHUN RUSSELL MD Sep 30, 2018 18:24
[2018-09-30] MEDS: HEPARIN 1000 UNITS/ML 10 ML INJ CATHETER SCH (21:36)
[2018-10-01] VITALS (12 sets, daily range): BP systolic 95–175; BP diastolic 53–85; PULSE 56–71; RESP 18–20
[2018-10-01] MEDS: ACCU-CHEK XX SCH (02:00)
[2018-10-01] MEDS: METOCLOPRAMIDE 10 MG INJ IV SCH ×4 (05:42→23:10)
[2018-10-01] MEDS: INSULIN ASPART [NOVOLOG] 3 ML PEN SC SCH ×4 (08:00→21:00)
[2018-10-01] MEDS: SEVELAMER CARBONATE 0.8 GM PKT PO SCH ×3 (08:41→17:16)
[2018-10-01] MEDS: ARTIFICIAL TEARS 15 ML OPH BOTH EYES SCH ×4 (08:41→21:26)
[2018-10-01] MEDS: ATROPINE SULFATE 1% LEFT EYE SCH ×2 (08:41→21:27)
[2018-10-01] MEDS: LACTULOSE 30ML CUP PO SCH (08:41)
[2018-10-01] MEDS: FAMOTIDINE 20 MG TAB PO SCH (08:42)
[2018-10-01] MEDS: LABETALOL 200 MG TAB PO SCH ×3 (08:42→23:10)
[2018-10-01] MEDS: NIFEdipine (XL) 60 MG TAB PO SCH ×2 (08:42→21:26)
[2018-10-01] MEDS: TAMSULOSIN (SR) 0.4 MG CAP PO SCH (08:42)
[2018-10-01] MEDS: MINOXIDIL 2.5 MG TAB PO SCH ×2 (08:43→21:25)
[2018-10-01] MEDS: NITROGLYCERIN 0.2 MG/HR PATCH TRANSDERM SCH (08:43)
--- NOTE | 2018-10-01 10:44 | CONS ---
Consult Date/Type/Reason Admit Date/Time Sep 19, 2018 at 06:33 Initial Consult Date 09/23/18 Type of Consult Pulmonary Requesting Provider: COREY SARAVIA Date/Time of Note DATE: 10/01/18 TIME: 10:43 Subjective Patient stable this morning no respiratory distress. Objective Vital Signs Date Temp Pulse Resp B/P (MAP) Pulse Ox O2 O2 Flow FiO2 Time Delivery Rate 10/01/18 69 08:00 10/01/18 97.1 19 132/61 90 07:35 (84) 10/01/18 Room Air 04:22 Intake and Output 09/30/18 09/30/18 10/01/18 1515:00 23:00 07:00 IntakeIntake Total 720 ml 500 ml OutputOutput Total 3200 ml 2000 ml BalanceBalance -2480 ml -1500 ml Exam GENERAL: Elderly lady comfortable at rest VITAL SIGNS: per chart NECK: Supple. No JVD or lymphadenopathy. CARDIAC EXAM: S1, S2. No added sounds or murmurs. CHEST: clear bilaterally, No added sounds, rales or wheezes ABDOMEN: Soft, nontender. No guarding or rebound. EXTREMITIES: No cyanosis, clubbing or edema. NEUROLOGIC: Generalized weakness. No focal deficits. Vent Setting Fraction of Inspired Oxygen pe: 21 Results/Medications Result Diagram: 09/29/1852809/29/18528 Results 24 hrs Laboratory Tests Test 09/30/18 11:52 09/30/18 16:59 09/30/18 22:23 10/01/18 07:44 Bedside Glucose 160 105 142 103 Medications Current Medications Heparin Sodium (Porcine) (Heparin (1000 Units/ml)) 4,000 unit AFTER DIALYSIS CATHETER Last administered on 09/30/18at 21:36; Admin Dose 3,800 UNIT; Start 09/19/18 at 07:30 Mannitol 50 ml @ 50 mls/5 min WITH DIALYSIS PRN IV DISEQUILIBRIUM SYNDROME PPX; Start 09/19/18 at 07:30 Albumin Human 100 ml @ 100 mls/hr WITH DIALYSIS PRN IV SBP <90 DURING DIALYSIS; Start 09/19/18 at 07:30 Sodium Chloride (NS) -To prime the dialy... DIRECTED FOR HD PRN IV HD; Start 09/19/18 at 07:30 Acetaminophen (Tylenol Tab) 650 mg Q6 PRN PO .MILD PAIN 1-3 OR TEMP Last administered on 09/28/18 20:26; Admin Dose 650 MG; Start 09/19/18 at 10:30 Ondansetron HCl (Zofran Inj) 4 mg Q4 PRN IV NAUSEA/VOMITING Last administered on 09/22/18 21:11; Admin Dose 4 MG; Start 09/19/18 at 10:30 Diagnostic Test (Pha) (Accu-Chek) 1 ea 02 XX Last administered on 09/24/18at 01:19; Admin Dose 1 EA; Start 09/20/18 at 02:00 Insulin Aspart (Novolog Insulin Pen) NOVOLOG *MILD* ALGORITHM WITH MEALS BEDTIME SC Last administered on 09/30/18 12:39; Admin Dose 1 UNIT; Start 09/19/18 at 11:30 Miscellaneous Information 1 ea NOTE XX ; Start 09/19/18 at 11:00 Glucose (Glutose) 15 gm Q15M PRN PO DECREASED GLUCOSE; Start 09/19/18 at 11:00 Glucose (Glutose) 22.5 gm Q15M PRN PO DECREASED GLUCOSE; Start 09/19/18 at 11:00 Dextrose (D50w Syringe) 25 ml Q15M PRN IV DECREASED GLUCOSE; Start 09/19/18 at 11:00 Dextrose (D50w Syringe) 50 ml Q15M PRN IV DECREASED GLUCOSE; Start 09/19/18 at 11:00 Glucagon (Glucagen) 1 mg Q15M PRN IM DECREASED GLUCOSE; Start 09/19/18 at 11:00 Glucose (Glutose) 15 gm Q15M PRN BUCCAL DECREASED GLUCOSE; Start 09/19/18 at 11:00 Famotidine (Pepcid) 20 mg DAILY PO Last administered on 10/01/18 08:42; Admin Dose 20 MG; Start 09/19/18 at 13:00 Nifedipine (Procardia Xl) 60 mg BID PO Last administered on 10/01/18 08:42; Admin Dose 60 MG; Start 09/19/18 at 12:30 Sevelamer Carbonate (Renvela) 0.8 gm WITH MEALS PO Last administered on 10/01/18 08:41; Admin Dose 0.8 GM; Start 09/19/18 at 17:35 Tamsulosin HCl (Flomax) 0.4 mg DAILY PO Last administered on 10/01/18 08:42; Admin Dose 0.4 MG; Start 09/19/18 at 12:30 Minoxidil (Loniten) 5 mg BID PO Last administered on 10/01/18 08:43; Admin Dose 5 MG; Start 09/19/18 at 13:30 Metoclopramide HCl (Reglan) 5 mg Q6 IV Last administered on 10/01/18 05:42; Admin Dose 5 MG; Start 09/20/18 at 00:00 Eye Lubricant (Artificial Tears Oph) 2 drop QID BOTH EYES Last administered on 10/01/18 08:41; Admin Dose 2 DROP; Start 09/20/18 at 20:00 Nitroglycerin (Nitroglycerin 0.2 Mg/Hr) 1 patch DAILY TRANSDERM Last adm inistered on 10/01/18 08:43; Admin Dose 1 PATCH; Start 09/22/18 at 11:30 Clonidine (Catapres) 0.2 mg TID PO Last administered on 10/01/18 08:42; Admin Dose 0.2 MG; Start 09/23/18 at 09:00 Clonidine (Catapres) 0.1 mg Q4H PRN NGT SBP > 170 Last administered on 09/29/18 23:50; Admin Dose 0.1 MG; Start 09/23/18 at 13:30 Guaifenesin/ Dextromethorphan (Robitussin Dm Liquid Cup) 10 ml Q6 PRN PO COUGH Last administered on 09/26/18 11:49; Admin Dose 10 ML; Start 09/23/18 at 13:30 Patient Own Medication 1 ea BID LEFT EYE Last administered on 10/01/18 08:41; Admin Dose 1 EA; Start 09/23/18 at 21:00 Labetalol HCl (Normodyne) 400 mg TID PO Last administered on 10/01/18 08:42; Admin Dose 400 MG; Start 09/29/18 at 09:00 Lactulose (Enulose) 20 gm DAILY PO Last administered on 10/01/18 08:41; Admin Dose 20 GM; Start 09/30/18 at 14:00 Assessment/Plan Hospital Course (Demo Recall) Assessment/Plan (Daily) IMP: 1. HTN emergency--improved 2. Hyperkalemia 3. CKD on HD 4. Volume overload--on HD/UF 5. Anemia 6. RLL pleural -based lesions RECS: 1. Continue to optimize BP 2. Continue HD/UF 3. ID recommendations DC planning okay from pulmonary standpoint we will sign off no active pulmonary issues. NORMA RASMUSSEN MD, [facility] Oct 01, 2018 10:44
--- NOTE | 2018-10-01 11:17 | CONS ---
Assessment/Plan Assessment/Plan Assessment/Plan (Daily) 1. acute hyperkalemia - Improved 2. Hypertensive emergency on NTG drip 3. ESRD on HD MWF with acute hyperklaemia and acute fluid overload 4. Possible Cholecysitits 5. H/o CAD s/p CABG 6. H/O HTN 7. H/o HL 8. H/o DM II Plan: s/p Hd yesterday 2.5 L removed, will keep pt on MWF schedule , no labs today to review yet Nifedipine 60mg pO BID , labetalol 400mg BID, Clonidine 0.2 mg TID,Minoxidil 5 mg BID, IV hydralazine prn will follow up Consultation Date/Type/Reason Admit Date/Time Sep 19, 2018 at 06:33 Initial Consult Date 09/19/18 Type of Consult NEPHROLOGY Requesting Provider: COREY SARAVIA Date/Time of Note DATE: 10/01/18 TIME: 11:16 Exam/Review of Systems Exam Vitals Vital Signs Date Temp Pulse Resp B/P (MAP) Pulse Ox O2 O2 Flow FiO2 Time Delivery Rate 10/01/18 98.3 67 19 175/85 91 11:01 (115) 10/01/18 Room Air 04:22 Intake and Output 09/30/18 09/30/18 10/01/18 1515:00 23:00 07:00 IntakeIntake Total 720 ml 500 ml OutputOutput Total 3200 ml 2000 ml BalanceBalance -2480 ml -1500 ml Exam Constitutional: alert, distress Respiratory: clear to auscultation, normal air movement, diminished breath sounds Cardiovascular: regular rate and rhythm, nl pulses Gastrointestinal: soft, non-tender, tender (RUQ) Musculoskeletal: nl extremities to inspection, other Extremities: normal pulses, other (Chest permacath HD catheter ) 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: 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, nl mental status, nl speech, nl strength Results Result Diagram: 09/29/1852809/29/18528 Results 24hrs Laboratory Tests Test 09/30/18 11:52 09/30/18 16:59 09/30/18 22:23 10/01/18 07:44 Bedside Glucose 160 105 142 103 Medications Medication Current Medications Heparin Sodium (Porcine) (Heparin (1000 Units/ml)) 4,000 unit AFTER DIALYSIS CATHETER Last administered on 09/30/18at 21:36; Admin Dose 3,800 UNIT; Start 09/19/18 at 07:30 Mannitol 50 ml @ 50 mls/5 min WITH DIALYSIS PRN IV DISEQUILIBRIUM SYNDROME PPX; Start 09/19/18 at 07:30 Albumin Human 100 ml @ 100 mls/hr WITH DIALYSIS PRN IV SBP <90 DURING DIALYSIS; Start 09/19/18 at 07:30 Sodium Chloride (NS) -To prime the dialy... DIRECTED FOR HD PRN IV HD; Start 09/19/18 at 07:30 Acetaminophen (Tylenol Tab) 650 mg Q6 PRN PO .MILD PAIN 1-3 OR TEMP Last administered on 09/28/18at 20:26; Admin Dose 650 MG; Start 09/19/18 at 10:30 Ondansetron HCl (Zofran Inj) 4 mg Q4 PRN IV NAUSEA/VOMITING Last administered on 09/22/18at 21:11; Admin Dose 4 MG; Start 09/19/18 at 10:30 Diagnostic Test (Pha) (Accu-Chek) 1 ea 02 XX Last administered on 09/24/18at 01:19; Admin Dose 1 EA; Start 09/20/18 at 02:00 Insulin Aspart (Novolog Insulin Pen) NOVOLOG *MILD* ALGORITHM WITH MEALS BEDTIME SC Last administered on 09/30/18at 12:39; Admin Dose 1 UNIT; Start 09/19/18 at 11:30 Miscellaneous Information 1 ea NOTE XX ; Start 09/19/18 at 11:00 Glucose (Glutose) 15 gm Q15M PRN PO DECREASED GLUCOSE; Start 09/19/18 at 11:00 Glucose (Glutose) 22.5 gm Q15M PRN PO DECREASED GLUCOSE; Start 09/19/18 at 11:00 Dextrose (D50w Syringe) 25 ml Q15M PRN IV DECREASED GLUCOSE; Start 09/19/18 at 11:00 Dextrose (D50w Syringe) 50 ml Q15M PRN IV DECREASED GLUCOSE; Start 09/19/18 at 11:00 Glucagon (Glucagen) 1 mg Q15M PRN IM DECREASED GLUCOSE; Start 09/19/18 at 11:00 Glucose (Glutose) 15 gm Q15M PRN BUCCAL DECREASED GLUCOSE; Start 09/19/18 at 11:00 Famotidine (Pepcid) 20 mg DAILY PO Last administered on 10/01/18 08:42; Admin Dose 20 MG; Start 09/19/18 at 13:00 Nifedipine (Procardia Xl) 60 mg BID PO Last administered on 10/01/18 08:42; Admin Dose 60 MG; Start 09/19/18 at 12:30 Sevelamer Carbonate (Renvela) 0.8 gm WITH MEALS PO Last administered on 10/01/18 08:41; Admin Dose 0.8 GM; Start 09/19/18 at 17:35 Tamsulosin HCl (Flomax) 0.4 mg DAILY PO Last administered on 10/01/18 08:42; Admin Dose 0.4 MG; Start 09/19/18 at 12:30 Minoxidil (Loniten) 5 mg BID PO Last administered on 10/01/18 08:43; Admin Dose 5 MG; Start 09/19/18 at 13:30 Metoclopramide HCl (Reglan) 5 mg Q6 IV Last administered on 10/01/18 05:42; Admin Dose 5 MG; Start 09/20/18 at 00:00 Eye Lubricant (Artificial Tears Oph) 2 drop QID BOTH EYES Last administered on 10/01/18 08:41; Admin Dose 2 DROP; Start 09/20/18 at 20:00 Nitroglycerin (Nitroglycerin 0.2 Mg/Hr) 1 patch DAILY TRANSDERM Last administered on 10/01/18 08:43; Admin Dose 1 PATCH; Start 09/22/18 at 11:30 Clonidine (Catapres) 0.2 mg TID PO Last administered on 10/01/18 08:42; Admin Dose 0.2 MG; Start 09/23/18 at 09:00 Clonidine (Catapres) 0.1 mg Q4H PRN NGT SBP > 170 Last administered on 09/29/18 23:50; Admin Dose 0.1 MG; Start 09/23/18 at 13:30 Guaifenesin/ Dextromethorphan (Robitussin Dm Liquid Cup) 10 ml Q6 PRN PO COUGH Last administered on 09/26/18 11:49; Admin Dose 10 ML; Start 09/23/18 at 13:30 Patient Own Medication 1 ea BID LEFT EYE Last administered on 10/01/18 08:41; Admin Dose 1 EA; Start 09/23/18 at 21:00 Labetalol HCl (Normodyne) 400 mg TID PO Last administered on 10/01/18at 08:42; Admin Dose 400 MG; Start 09/29/18 at 09:00 Lactulose (Enulose) 20 gm DAILY PO Last administered on 10/01/18at 08:41; Admin Dose 20 GM; Start 09/30/18 at 14:00 VALERIA RODRÍGUEZ MD Oct 01, 2018 11:17
--- NOTE | 2018-10-01 14:05 | CONS ---
Assessment/Plan Assessment/Plan Assessment/Plan (Daily) 57 yo male presented with hyperkalemia and hypertensive crisis Interval hx: Large BM yesterday. Denies N/v or any abdominal pain. Hgb stable. CBD measures 3.5mm wnl. 1. Abdominal pain with nausea and vomiting -resolved -gastritis v PUD v cholecystitis 2. Mild acute cholecystitis 3. RT lower lobe mass. 4. Hypertension crisis -resolved 5. Diabetes mellitus. 6. Coronary artery disease status post coronary artery bypass graft. 7. Legally blind. 8. 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 Hyperkalemia, for which he had emergent dialysis and was also medically treated. 10. Pancytopenia US of upper abd 09/19: 1. Diffuse gallbladder wall thickening and trace pericholecystic fluid, appearance may indicate acute cholecystitis, reactive inflammation or edema. 2. No gallstones identified. 3. Mildly atrophic right kidney, echogenic appearance consistent with chronic medical renal disease. HIDA negative for cholecystitis PLAN: Continue with PPI and Reglan CMP in a.m. Consultation Date/Type/Reason Admit Date/Time Sep 19, 2018 at 06:33 Initial Consult Date 09/21/18 Requesting Provider: COREY SARAVIA Date/Time of Note DATE: 10/01/18 TIME: 14:04 24 HR Interval Summary Free Text/Dictation As per patient he has no abdominal pain no nausea no vomiting. But the staff nurse has documented that patient is having pain Exam/Review of Systems Exam Vitals Vital Signs Date Temp Pulse Resp B/P (MAP) Pulse Ox O2 O2 Flow FiO2 Time Delivery Rate 10/01/18 64 12:00 10/01/18 98.3 19 175/85 91 11:01 (115) 10/01/18 Room Air 04:22 Intake and Output 09/30/18 09/30/18 10/01/18 1515:00 23:00 07:00 IntakeIntake Total 720 ml 500 ml OutputOutput Total 3200 ml 2000 ml BalanceBalance -2480 ml -1500 ml Constitutional: alert, oriented, well developed Psych: no complaints, nl mood/affect Head: normocephalic, atraumatic Eyes: nl conjunctiva, EOMI, nl lids, nl sclera, PERRL ENMT: nl external ears & nose, nl lips & teeth, nl nasal mucosa & septum Neck: supple, non-tender Respiratory: clear to auscultation, normal air movement Cardiovascular: regular rate and rhythm, nl pulses Gastrointestinal: soft, nl liver, spleen, non-tender Musculoskeletal: nl extremities to inspection, nl gait and stance Extremities: normal pulses 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, nl mental status, nl speech, nl strength Skin: nl turgor; No rash or lesions Lymph: nl lymph nodes Results Result Diagram: 09/29/1852809/29/18528 Results 24hrs Laboratory Tests Test 09/30/18 16:59 09/30/18 22:23 10/01/18 07:44 10/01/18 11:46 Bedside Glucose 105 142 103 112 Medications Medication Current Medications Heparin Sodium (Porcine) (Heparin (1000 Units/ml)) 4,000 unit AFTER DIALYSIS CATHETER Last administered on 09/30/18at 21:36; Admin Dose 3,800 UNIT; Start 09/19/18 at 07:30 Mannitol 50 ml @ 50 mls/5 min WITH DIALYSIS PRN IV DISEQUILIBRIUM SYNDROME PPX; Start 09/19/18 at 07:30 Albumin Human 100 ml @ 100 mls/hr WITH DIALYSIS PRN IV SBP <90 DURING DIALYSIS; Start 09/19/18 at 07:30 Sodium Chloride (NS) -To prime the dialy... DIRECTED FOR HD PRN IV HD; Start 09/19/18 at 07:30 Acetaminophen (Tylenol Tab) 650 mg Q6 PRN PO .MILD PAIN 1-3 OR TEMP Last administered on 09/28/18at 20:26; Admin Dose 650 MG; Start 09/19/18 at 10:30 Ondansetron HCl (Zofran Inj) 4 mg Q4 PRN IV NAUSEA/VOMITING Last administered on 09/22/18at 21:11; Admin Dose 4 MG; Start 09/19/18 at 10:30 Diagnostic Test (Pha) (Accu-Chek) 1 ea 02 XX Last administered on 09/24/18at 01:19; Admin Dose 1 EA; Start 09/20/18 at 02:00 Insulin Aspart (Novolog Insulin Pen) NOVOLOG *MILD* ALGORITHM WITH MEALS BEDTIME SC Last administered on 09/30/18at 12:39; Admin Dose 1 UNIT; Start 09/19/18 at 11:30 Miscellaneous Information 1 ea NOTE XX ; Start 09/19/18 at 11:00 Glucose (Glutose) 15 gm Q15M PRN PO DECREASED GLUCOSE; Start 09/19/18 at 11:00 Glucose (Glutose) 22.5 gm Q15M PRN PO DECREASED GLUCOSE; Start 09/19/18 at 11:00 Dextrose (D50w Syringe) 25 ml Q15M PRN IV DECREASED GLUCOSE; Start 09/19/18 at 11:00 Dextrose (D50w Syringe) 50 ml Q15M PRN IV DECREASED GLUCOSE; Start 09/19/18 at 11:00 Glucagon (Glucagen) 1 mg Q15M PRN IM DECREASED GLUCOSE; Start 09/19/18 at 11:00 Glucose (Glutose) 15 gm Q15M PRN BUCCAL DECREASED GLUCOSE; Start 09/19/18 at 11:00 Famotidine (Pepcid) 20 mg DAILY PO Last administered on 10/01/18 08:42; Admin Dose 20 MG; Start 09/19/18 at 13:00 Nifedipine (Procardia Xl) 60 mg BID PO Last administered on 10/01/18 08:42; Admin Dose 60 MG; Start 09/19/18 at 12:30 Sevelamer Carbonate (Renvela) 0.8 gm WITH MEALS PO Last administered on 11:48; Admin Dose 0.8 GM; Start 09/19/18 at 17:35 Tamsulosin HCl (Flomax) 0.4 mg DAILY PO Last administered on 10/01/18 08:42; Admin Dose 0.4 MG; Start 09/19/18 at 12:30 Minoxidil (Loniten) 5 mg BID PO Last administered on 10/01/18 08:43; Admin Dose 5 MG; Start 09/19/18 at 13:30 Metoclopramide HCl (Reglan) 5 mg Q6 IV Last administered on 10/01/18 11:48; Admin Dose 5 MG; Start 09/20/18 at 00:00 Eye Lubricant (Artificial Tears Oph) 2 drop QID BOTH EYES Last administered on 10/01/18 13:06; Admin Dose 2 DROP; Start 09/20/18 at 20:00 Nitroglycerin (Nitroglycerin 0.2 Mg/Hr) 1 patch DAILY TRANSDERM Last administered on 10/01/18 08:43; Admin Dose 1 PATCH; Start 09/22/18 at 11:30 Clonidine (Catapres) 0.2 mg TID PO Last administered on 10/01/18 13:07; Admin Dose 0.2 MG; Start 09/23/18 at 09:00 Clonidine (Catapres) 0.1 mg Q4H PRN NGT SBP > 170 Last administered on 09/29/18 23:50; Admin Dose 0.1 MG; Start 09/23/18 at 13:30 Guaifenesin/ Dextromethorphan (Robitussin Dm Liquid Cup) 10 ml Q6 PRN PO COUGH Last administered on 09/26/18 11:49; Admin Dose 10 ML; Start 09/23/18 at 13:30 Patient Own Medication 1 ea BID LEFT EYE Last administered on 10/01/18 08:41; Admin Dose 1 EA; Start 09/23/18 at 21:00 Labetalol HCl (Normodyne) 400 mg TID PO Last administered on 10/01/18 13:07; Admin Dose 400 MG; Start 09/29/18 at 09:00 Lactulose (Enulose) 20 gm DAILY PO Last administered on 10/01/18 08:41; Admin Dose 20 GM; Start 09/30/18 at 14:00 MIGUELINA HALL MD Oct 01, 2018 14:05
--- NOTE | 2018-10-01 19:54 | PN ---
DATE: 10/01/2018 SUBJECTIVE: Followup on hypertension, end-stage renal disease, diabetes, mild acute cholecystitis without gallstones and pancytopenia. The patient is breathing comfortably at rest, although O2 sats between 91% to 93% on room air. The patient did have a blood pressure of 175/85 early this morning. With his antihypertensive medication, the blood pressure is down to 95/53. The patient denies any chest pain or dizziness. No reported fever or chills. No reported bleeding on any site. The patient denies abdominal pain. The patient also denies nausea or vomiting. PHYSICAL EXAMINATION: GENERAL: The patient was noted to be awake, alert, fairly oriented. VITAL SIGNS: Temperature 97.6, pulse 65, respirations 19, blood pressure 95/53, O2 saturation 93% on room air. HEENT: Atraumatic, normocephalic head. The patient has left eye corneal opacity. No discharge from either eye. The patient is legally blind. Oropharynx is grossly negative. NECK: Supple, no masses or thyromegaly. CHEST: Diminished air entry at the bases. No use of accessory muscles. CARDIOVASCULAR: S1, S2 normal, no murmur. ABDOMEN: Soft, nontender. No palpable mass. EXTREMITIES: No edema, clubbing or cyanosis. NEUROLOGIC: The patient is awake, alert, follows simple commands and denies any focal weakness. LABORATORY DATA: Glucose 115. Last CBC revealed WBC of 3.5, hemoglobin of 10.9 and platelet 94. IMPRESSION AND PLAN: 1. Hypertensive urgency, status post nitroglycerin drip, currently on oral medication. Continue to monitor. 2. Abdominal pain secondary to gastritis versus peptic ulcer disease with possible cholecystitis, although HIDA is negative. Continue proton pump inhibitor and Reglan. Dr. Winkler has been following. 3. Pancytopenia. Continue to follow. 4. Coronary artery disease, status post coronary artery bypass grafting. No chest pain. 5. Right lower lobe pleural base lesion as per pulmonary. No active issue. We will continue to monitor. Dictated By: HARMONY LOUIS/MAISHA Conf#: [id number] DID#: [id number] MTDD
[2018-10-02] VITALS (12 sets, daily range): BP systolic 102–159; BP diastolic 59–74; PULSE 58–70; RESP 18–19
[2018-10-02] MEDS: ACCU-CHEK XX SCH (02:00)
[2018-10-02] MEDS: METOCLOPRAMIDE 10 MG INJ IV SCH ×3 (06:10→17:18)
[2018-10-02] MEDS: INSULIN ASPART [NOVOLOG] 3 ML PEN SC SCH ×4 (07:48→20:20)
[2018-10-02] MEDS: SEVELAMER CARBONATE 0.8 GM PKT PO SCH ×3 (07:48→17:18)
[2018-10-02] MEDS: ATROPINE SULFATE 1% LEFT EYE SCH ×2 (08:39→20:17)
[2018-10-02] MEDS: LACTULOSE 30ML CUP PO SCH (08:40)
[2018-10-02] MEDS: TAMSULOSIN (SR) 0.4 MG CAP PO SCH (08:40)
[2018-10-02] MEDS: ARTIFICIAL TEARS 15 ML OPH BOTH EYES SCH ×4 (08:40→20:18)
[2018-10-02] MEDS: NIFEdipine (XL) 60 MG TAB PO SCH ×2 (08:41→20:15)
[2018-10-02] MEDS: LABETALOL 200 MG TAB PO SCH ×3 (08:41→20:14)
[2018-10-02] MEDS: NITROGLYCERIN 0.2 MG/HR PATCH TRANSDERM SCH (08:41)
[2018-10-02] MEDS: FAMOTIDINE 20 MG TAB PO SCH (08:41)
[2018-10-02] MEDS: MINOXIDIL 2.5 MG TAB PO SCH ×2 (08:42→20:16)
--- NOTE | 2018-10-02 14:11 | CONS ---
Assessment/Plan Assessment/Plan Assessment/Plan (Daily) 1. acute hyperkalemia - Improved 2. Hypertensive emergency s/p NTG drip- now on Multiple antihypertensives 3. ESRD on HD MWF with acute hyperklaemia and acute fluid overload 4. Possible Cholecysitits 5. H/o CAD s/p CABG 6. H/O HTN 7. H/o HL 8. H/o DM II Plan: s/p Hd on Wednesday 2.5 L removed, Plan for HD on Wednesday , will keep pt on MWF schedule Nifedipine 60mg pO BID , labetalol 400mg BID, Clonidine 0.2 mg TID,Minoxidil 5 mg BID, IV hydralazine prn , PO clonidine prn will follow up Consultation Date/Type/Reason Admit Date/Time Sep 19, 2018 at 06:33 Initial Consult Date 09/19/18 Type of Consult NEPHROLOGY Requesting Provider: COREY SARAVIA Date/Time of Note DATE: 10/02/18 TIME: 14:11 Exam/Review of Systems Exam Vitals Vital Signs Date Temp Pulse Resp B/P (MAP) Pulse Ox O2 O2 Flow FiO2 Time Delivery Rate 10/02/18 63 12:00 10/02/18 97.6 19 124/59 97 11:14 (80) 10/01/18 Room Air 04:22 Intake and Output 10/01/18 10/01/18 10/02/18 1515:00 23:00 07:00 IntakeIntake Total 900 ml 200 ml OutputOutput Total 250 ml BalanceBalance 900 ml -50 ml Exam Constitutional: alert, distress Respiratory: clear to auscultation, normal air movement, diminished breath sounds Cardiovascular: regular rate and rhythm, nl pulses Gastrointestinal: soft, NT, ND,BS+ Musculoskeletal: nl extremities to inspection, other Extremities: normal pulses, other (Chest permacath HD catheter ) 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: 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, nl mental status, nl speech, nl strength Results Result Diagram: 09/29/18 0529 10/02/18 0532 Results 24hrs Laboratory Tests Test 10/01/18 17:13 10/01/18 21:24 10/02/18 05:32 10/02/18 07:38 Bedside Glucose 115 85 89 Sodium Level 137 Potassium Level 5.8 H Chloride Level 98 Carbon Dioxide Level 24 Anion Gap 15 H Blood Urea Nitrogen 67 H Creatinine 9.67 H Est Glomerular 6 L Filtrat Rate mL/min Glucose Level 84 Calcium Level 7.8 L Total Bilirubin 0.1 L Direct Bilirubin 0.00 Indirect Bilirubin 0.1 Aspartate Amino 17 Transf (AST/SGOT) Alanine 15 Aminotransferase (AL T/SGPT) Alkaline Phosphatase 54 Total Protein 7.5 Albumin 4.2 Globulin 3.30 H Albumin/Globulin 1.27 Ratio Test 10/02/18 12:18 Bedside Glucose 210 Medications Medication Current Medications Heparin Sodium (Porcine) (Heparin (1000 Units/ml)) 4,000 unit AFTER DIALYSIS CATHETER Last administered on 09/30/18 21:36; Admin Dose 3,800 UNIT; Start 09/19/18 at 07:30 Mannitol 50 ml @ 50 mls/5 min WITH DIALYSIS PRN IV DISEQUILIBRIUM SYNDROME PPX; Start 09/19/18 at 07:30 Albumin Human 100 ml @ 100 mls/hr WITH DIALYSIS PRN IV SBP <90 DURING DIALYSIS; Start 09/19/18 at 07:30 Sodium Chloride (NS) -To prime the dialy... DIRECTED FOR HD PRN IV HD; Start 09/19/18 at 07:30 Acetaminophen (Tylenol Tab) 650 mg Q6 PRN PO .MILD PAIN 1-3 OR TEMP Last administered on 09/28/18 20:26; Admin Dose 650 MG; Start 09/19/18 at 10:30 Ondansetron HCl (Zofran Inj) 4 mg Q4 PRN IV NAUSEA/VOMITING Last administered on 09/22/18 21:11; Admin Dose 4 MG; Start 09/19/18 at 10:30 Diagnostic Test (Pha) (Accu-Chek) 1 ea 02 XX Last administered on 09/24/18at 01:19; Admin Dose 1 EA; Start 09/20/18 at 02:00 Insulin Aspart (Novolog Insulin Pen) NOVOLOG *MILD* ALGORITHM WITH MEALS BEDTIME SC Last administered on 10/02/18at 12:41; Admin Dose 2 UNIT; Start at 11:30 Miscellaneous Information 1 ea NOTE XX ; Start 09/19/18 at 11:00 Glucose (Glutose) 15 gm Q15M PRN PO DECREASED GLUCOSE; Start 09/19/18 at 11:00 Glucose (Glutose) 22.5 gm Q15M PRN PO DECREASED GLUCOSE; Start 09/19/18 at 11:00 Dextrose (D50w Syringe) 25 ml Q15M PRN IV DECREASED GLUCOSE; Start 09/19/18 at 11:00 Dextrose (D50w Syringe) 50 ml Q15M PRN IV DECREASED GLUCOSE; Start 09/19/18 at 11:00 Glucagon (Glucagen) 1 mg Q15M PRN IM DECREASED GLUCOSE; Start 09/19/18 at 11:00 Glucose (Glutose) 15 gm Q15M PRN BUCCAL DECREASED GLUCOSE; Start 09/19/18 at 11:00 Famotidine (Pepcid) 20 mg DAILY PO Last administered on 10/02/18 08:41; Admin Dose 20 MG; Start 09/19/18 at 13:00 Nifedipine (Procardia Xl) 60 mg BID PO Last administered on 10/02/18 08:41; Admin Dose 60 MG; Start 09/19/18 at 12:30 Sevelamer Carbonate (Renvela) 0.8 gm WITH MEALS PO Last administered on 10/02/18 12:29; Admin Dose 0.8 GM; Start 09/19/18 at 17:35 Tamsulosin HCl (Flomax) 0.4 mg DAILY PO Last administered on 10/02/18 08:40; Admin Dose 0.4 MG; Start 09/19/18 at 12:30 Minoxidil (Loniten) 5 mg BID PO Last administered on 10/02/18 08:42; Admin Dose 5 MG; Start 09/19/18 at 13:30 Metoclopramide HCl (Reglan) 5 mg Q6 IV Last administered on 10/02/18 12:29; Admin Dose 5 MG; Start 09/20/18 at 00:00 Eye Lubricant (Artificial Tears Oph) 2 drop QID BOTH EYES Last administered on 10/02/18 12:30; Admin Dose 2 DROP; Start 09/20/18 at 20:00 Nitroglycerin (Nitroglycerin 0.2 Mg/Hr) 1 patch DAILY TRANSDERM Last ad ministered on 10/02/18 08:41; Admin Dose 1 PATCH; Start 09/22/18 at 11:30 Clonidine (Catapres) 0.2 mg TID PO Last administered on 10/02/18 12:29; Admin Dose 0.2 MG; Start 09/23/18 at 09:00 Clonidine (Catapres) 0.1 mg Q4H PRN NGT SBP > 170 Last administered on 09/29/18 23:50; Admin Dose 0.1 MG; Start 09/23/18 at 13:30 Guaifenesin/ Dextromethorphan (Robitussin Dm Liquid Cup) 10 ml Q6 PRN PO COUGH Last administered on 09/26/18 11:49; Admin Dose 10 ML; Start 09/23/18 at 13:30 Patient Own Medication 1 ea BID LEFT EYE Last administered on 10/02/18 08:39; Admin Dose 1 EA; Start 09/23/18 at 21:00 Labetalol HCl (Normodyne) 400 mg TID PO Last administered on 10/02/18 12:29; Admin Dose 400 MG; Start 09/29/18 at 09:00 Lactulose (Enulose) 20 gm DAILY PO Last administered on 10/02/18 08:40; Admin Dose 20 GM; Start 09/30/18 at 14:00 VALERIA RODRÍGUEZ MD Oct 02, 2018 14:11
--- NOTE | 2018-10-02 15:06 | CONS ---
Assessment/Plan Assessment/Plan Assessment/Plan (Daily) Assessment/Plan (Daily) 57 yo male presented with hyperkalemia and hypertensive crisis Interval hx: Large BM yesterday. Denies N/v or any abdominal pain. Hgb stable. CBD measures 3.5mm wnl. 1. Abdominal pain with nausea and vomiting -resolved -gastritis v PUD v cholecystitis 2. Mild acute cholecystitis asymptomatic 3. RT lower lobe mass. 4. Hypertension crisis -resolved 5. Diabetes mellitus. 6. Coronary artery disease status post coronary artery bypass graft. 7. Legally blind. 8. 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 Hyperkalemia, for which he had emergent dialysis and was also medically treated. 10. Pancytopenia US of upper abd 09/19: 1. Diffuse gallbladder wall thickening and trace pericholecystic fluid, appearance may indicate acute cholecystitis, reactive inflammation or edema. 2. No gallstones identified. 3. Mildly atrophic right kidney, echogenic appearance consistent with chronic medical renal disease. HIDA negative for cholecystitis PLAN: Continue with PPI and Reglan CMP in a.m. Patient has no abdominal pain for last 3-4 days. Consultation Date/Type/Reason Admit Date/Time Sep 19, 2018 at 06:33 Initial Consult Date 09/21/18 Requesting Provider: COREY SARAVIA Date/Time of Note DATE: 10/02/18 TIME: 15:05 24 HR Interval Summary Constitutional: no complaints, improved Exam/Review of Systems Exam Vitals Vital Signs Date Temp Pulse Resp B/P (MAP) Pulse Ox O2 O2 Flow FiO2 Time Delivery Rate 10/02/18 97.9 58 18 135/63 92 15:04 (87) 10/01/18 Room Air 04:22 Intake and Output 10/01/18 10/01/18 10/02/18 1515:00 23:00 07:00 IntakeIntake Total 900 ml 200 ml OutputOutput Total 250 ml BalanceBalance 900 ml -50 ml Constitutional: alert, oriented, well developed Psych: no complaints, nl mood/affect Head: normocephalic, atraumatic Eyes: nl conjunctiva, EOMI, nl lids, nl sclera, PERRL ENMT: nl external ears & nose, nl lips & teeth, nl nasal mucosa & septum Neck: supple, non-tender Respiratory: clear to auscultation, normal air movement Cardiovascular: regular rate and rhythm, nl pulses Gastrointestinal: soft, nl liver, spleen, non-tender Musculoskeletal: nl extremities to inspection, nl gait and stance Extremities: normal pulses 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: PROJECT PROGRAM MANAGER II-XII intact, nl mental status, nl speech, nl strength Skin: nl turgor; No rash or lesions Lymph: nl lymph nodes Results Result Diagram: 09/29/18 0529 10/02/18 0532 Results 24hrs Laboratory Tests Test 10/01/18 17:13 10/01/18 21:24 10/02/18 05:32 10/02/18 07:38 Bedside Glucose 115 85 89 Sodium Level 137 Potassium Level 5.8 H Chloride Level 98 Carbon Dioxide Level 24 Anion Gap 15 H Blood Urea Nitrogen 67 H Creatinine 9.67 H Est Glomerular 6 L Filtrat Rate mL/min Glucose Level 84 Calcium Level 7.8 L Total Bilirubin 0.1 L Direct Bilirubin 0.00 Indirect Bilirubin 0.1 Aspartate Amino 17 Transf (AST/SGOT) Alanine 15 Aminotransferase (AL T/SGPT) Alkaline Phosphatase 54 Total Protein 7.5 Albumin 4.2 Globulin 3.30 H Albumin/Globulin 1.27 Ratio Test 10/02/18 12:18 Bedside Glucose 210 Medications Medication Current Medications Heparin Sodium (Porcine) (Heparin (1000 Units/ml)) 4,000 unit AFTER DIALYSIS CATHETER Last administered on 09/30/18at 21:36; Admin Dose 3,800 UNIT; Start 09/19/18 at 07:30 Mannitol 50 ml @ 50 mls/5 min WITH DIALYSIS PRN IV DISEQUILIBRIUM SYNDROME PPX; Start 09/19/18 at 07:30 Albumin Human 100 ml @ 100 mls/hr WITH DIALYSIS PRN IV SBP <90 DURING DIALYSIS; Start 09/19/18 at 07:30 Sodium Chloride (NS) -To prime the dialy... DIRECTED FOR HD PRN IV HD; Start 09/19/18 at 07:30 Acetaminophen (Tylenol Tab) 650 mg Q6 PRN PO .MILD PAIN 1-3 OR TEMP Last administered on 09/28/18at 20:26; Admin Dose 650 MG; Start 09/19/18 at 10:30 Ondansetron HCl (Zofran Inj) 4 mg Q4 PRN IV NAUSEA/VOMITING Last administered on 09/22/18 21:11; Admin Dose 4 MG; Start 09/19/18 at 10:30 Diagnostic Test (Pha) (Accu-Chek) 1 ea 02 XX Last administered on 09/24/18at 01:19; Admin Dose 1 EA; Start 09/20/18 at 02:00 Insulin Aspart (Novolog Insulin Pen) NOVOLOG *MILD* ALGORITHM WITH MEALS BEDTIME SC Last administered on 10/02/18at 12:41; Admin Dose 2 UNIT; Start 09/19/18 at 11:30 Miscellaneous Information 1 ea NOTE XX ; Start 09/19/18 at 11:00 Glucose (Glutose) 15 gm Q15M PRN PO DECREASED GLUCOSE; Start 09/19/18 at 11:00 Glucose (Glutose) 22.5 gm Q15M PRN PO DECREASED GLUCOSE; Start 09/19/18 at 11:00 Dextrose (D50w Syringe) 25 ml Q15M PRN IV DECREASED GLUCOSE; Start 09/19/18 at 11:00 Dextrose (D50w Syringe) 50 ml Q15M PRN IV DECREASED GLUCOSE; Start 09/19/18 at 11:00 Glucagon (Glucagen) 1 mg Q15M PRN IM DECREASED GLUCOSE; Start 09/19/18 at 11:00 Glucose (Glutose) 15 gm Q15M PRN BUCCAL DECREASED GLUCOSE; Start 09/19/18 at 11:00 Famotidine (Pepcid) 20 mg DAILY PO Last administered on 10/02/18at 08:41; Admin Dose 20 MG; Start 09/19/18 at 13:00 Nifedipine (Procardia Xl) 60 mg BID PO Last administered on 10/02/18 08:41; Admin Dose 60 MG; Start 09/19/18 at 12:30 Sevelamer Carbonate (Renvela) 0.8 gm WITH MEALS PO Last administered on 10/02/18 12:29; Admin Dose 0.8 GM; Start 09/19/18 at 17:35 Tamsulosin HCl (Flomax) 0.4 mg DAILY PO Last administered on 10/02/18 08:40; Admin Dose 0.4 MG; Start 09/19/18 at 12:30 Minoxidil (Loniten) 5 mg BID PO Last administered on 10/02/18at 08:42; Admin Dose 5 MG; Start 09/19/18 at 13:30 Metoclopramide HCl (Reglan) 5 mg Q6 IV Last administered on 10/02/18 12:29; Admin Dose 5 MG; Start 09/20/18 at 00:00 Eye Lubricant (Artificial Tears Oph) 2 drop QID BOTH EYES Last administered on 10/02/18 12:30; Admin Dose 2 DROP; Start 09/20/18 at 20:00 Nitroglycerin (Nitroglycerin 0.2 Mg/Hr) 1 patch DAILY TRANSDERM Last administered on 10/02/18 08:41; Admin Dose 1 PATCH; Start 09/22/18 at 11:30 Clonidine (Catapres) 0.2 mg TID PO Last administered on 10/02/18 12:29; Admin Dose 0.2 MG; Start 09/23/18 at 09:00 Clonidine (Catapres) 0.1 mg Q4H PRN NGT SBP > 170 Last administered on 09/29/18 23:50; Admin Dose 0.1 MG; Start 09/23/18 at 13:30 Guaifenesin/ Dextromethorphan (Robitussin Dm Liquid Cup) 10 ml Q6 PRN PO COUGH Last administered on 09/26/18 11:49; Admin Dose 10 ML; Start 09/23/18 at 13:30 Patient Own Medication 1 ea BID LEFT EYE Last administered on 10/02/18 08:39; Admin Dose 1 EA; Start 09/23/18 at 21:00 Labetalol HCl (Normodyne) 400 mg TID PO Last administered on 10/02/18 12:29; Admin Dose 400 MG; Start 09/29/18 at 09:00 Lactulose (Enulose) 20 gm DAILY PO Last administered on 10/02/18 08:40; Admin Dose 20 GM; Start 09/30/18 at 14:00 MIGUELINA HALL MD Oct 02, 2018 15:06
[2018-10-03] VITALS (27 sets, daily range): BP systolic 112–167; BP diastolic 51–79; PULSE 59–100; RESP 16–18
[2018-10-03] MEDS: METOCLOPRAMIDE 10 MG INJ IV SCH ×4 (01:31→17:12)
[2018-10-03] MEDS: ACCU-CHEK XX SCH (02:00)
[2018-10-03] MEDS: INSULIN ASPART [NOVOLOG] 3 ML PEN SC SCH ×4 (07:41→21:14)
--- NOTE | 2018-10-03 08:11 | CONS ---
Assessment/Plan Assessment/Plan Hospital Course (Demo Recall) 57 yo male presented with hyperkalemia and hypertensive crisis Interval hx: BM 10/02. Denies N/v or any abdominal pain. Hgb stable. 1. Abdominal pain with nausea and vomiting -resolved -gastritis v PUD v cholecystitis - CBD measures 3.5mm wnl. 2. Mild acute cholecystitis 3. RT lower lobe mass. 4. Hypertension crisis -resolved 5. Diabetes mellitus. 6. Coronary artery disease status post coronary artery bypass graft. 7. Legally blind. 8. 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 Hyperkalemia, for which he had emergent dialysis and was also medically treated. 10. Pancytopenia US of upper abd 09/19: 1. Diffuse gallbladder wall thickening and trace pericholecystic fluid, appearance may indicate acute cholecystitis, reactive inflammation or edema. 2. No gallstones identified. 3. Mildly atrophic right kidney, echogenic appearance consistent with chronic medical renal disease. HIDA negative for cholecystitis PLAN: Continue with PPI and Reglan Continue present care Pt examined and plan of care discussed with Dr. Winkler Consultation Date/Type/Reason Admit Date/Time Sep 19, 2018 at 06:33 Initial Consult Date 09/19/18 Requesting Provider: COREY SARAVAI Date/Time of Note DATE: 10/03/18 TIME: 08:10 Exam/Review of Systems Exam Vitals Vital Signs Date Temp Pulse Resp B/P (MAP) Pulse Ox O2 O2 Flow FiO2 Time Delivery Rate 10/03/18 98.0 63 16 148/71 95 07:43 (96) 10/01/18 Room Air 04:22 Intake and Output 10/02/18 10/02/18 10/03/18 1515:00 23:00 07:00 IntakeIntake Total 1150 ml 200 ml BalanceBalance 1150 ml 200 ml Constitutional: alert, oriented Psych: no complaints Head: normocephalic Eyes: other (blind) ENMT: mucosa pink and moist Respiratory: clear to auscultation Gastrointestinal: soft, non-tender Musculoskeletal: nl extremities to inspection 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: nl mental status Results Result Diagram: 09/29/18 0529 10/02/18 0532 Results 24hrs Laboratory Tests Test 10/02/18 12:18 10/02/18 17:18 10/02/18 20:19 10/03/18 07:40 Bedside Glucose 210 133 172 114 Medications Medication Current Medications Heparin Sodium (Porcine) (Heparin (1000 Units/ml)) 4,000 unit AFTER DIALYSIS CATHETER Last administered on 09/30/18at 21:36; Admin Dose 3,800 UNIT; Start 09/19/18 at 07:30 Mannitol 50 ml @ 50 mls/5 min WITH DIALYSIS PRN IV DISEQUILIBRIUM SYNDROME PPX; Start 09/19/18 at 07:30 Albumin Human 100 ml @ 100 mls/hr WITH DIALYSIS PRN IV SBP <90 DURING DIALYSIS; Start 09/19/18 at 07:30 Sodium Chloride (NS) -To prime the dialy... DIRECTED FOR HD PRN IV HD; Start 09/19/18 at 07:30 Acetaminophen (Tylenol Tab) 650 mg Q6 PRN PO .MILD PAIN 1-3 OR TEMP Last administered on 09/28/18at 20:26; Admin Dose 650 MG; Start 09/19/18 at 10:30 Ondansetron HCl (Zofran Inj) 4 mg Q4 PRN IV NAUSEA/VOMITING Last administered on 09/22/18at 21:11; Admin Dose 4 MG; Start 09/19/18 at 10:30 Diagnostic Test (Pha) (Accu-Chek) 1 ea 02 XX Last administered on 09/24/18at 01:19; Admin Dose 1 EA; Start 09/20/18 at 02:00 Insulin Aspart (Novolog Insulin Pen) NOVOLOG *MILD* ALGORITHM WITH MEALS BEDTIME SC Last administered on 10/02/18at 12:41; Admin Dose 2 UNIT; Start 09/19/18 at 11:30 Miscellaneous Information 1 ea NOTE XX ; Start 09/19/18 at 11:00 Glucose (Glutose) 15 gm Q15M PRN PO DECREASED GLUCOSE; Start 09/19/18 at 11:00 Glucose (Glutose) 22.5 gm Q15M PRN PO DECREASED GLUCOSE; Start 09/19/18 at 11:00 Dextrose (D50w Syringe) 25 ml Q15M PRN IV DECREASED GLUCOSE; Start 09/19/18 at 11:00 Dextrose (D50w Syringe) 50 ml Q15M PRN IV DECREASED GLUCOSE; Start 09/19/18 at 11:00 Glucagon (Glucagen) 1 mg Q15M PRN IM DECREASED GLUCOSE; Start 09/19/18 at 11:00 Glucose (Glutose) 15 gm Q15M PRN BUCCAL DECREASED GLUCOSE; Start 09/19/18 at 11:00 Famotidine (Pepcid) 20 mg DAILY PO Last administered on 10/02/18 08:41; Admin Dose 20 MG; Start 09/19/18 at 13:00 Nifedipine (Procardia Xl) 60 mg BID PO Last administered on 10/02/18 20:15; Admin Dose 60 MG; Start 09/19/18 at 12:30 Sevelamer Carbonate (Renvela) 0.8 gm WITH MEALS PO Last administered on 17:18; Admin Dose 0.8 GM; Start 09/19/18 at 17:35 Tamsulosin HCl (Flomax) 0.4 mg DAILY PO Last administered on 10/02/18 08:40; Admin Dose 0.4 MG; Start 09/19/18 at 12:30 Minoxidil (Loniten) 5 mg BID PO Last administered on 10/02/18 20:16; Admin Dose 5 MG; Start 09/19/18 at 13:30 Metoclopramide HCl (Reglan) 5 mg Q6 IV Last administered on 10/03/18 06:19; Admin Dose 5 MG; Start 09/20/18 at 00:00 Eye Lubricant (Artificial Tears Oph) 2 drop QID BOTH EYES Last administered on 10/02/18 20:18; Admin Dose 2 DROP; Start 09/20/18 at 20:00 Nitroglycerin (Nitroglycerin 0.2 Mg/Hr) 1 patch DAILY TRANSDERM Last administered on 10/02/18 08:41; Admin Dose 1 PATCH; Start 09/22/18 at 11:30 Clonidine (Catapres) 0.2 mg TID PO Last administered on 10/02/18 20:15; Admin Dose 0.2 MG; Start 09/23/18 at 09:00 Clonidine (Catapres) 0.1 mg Q4H PRN NGT SBP > 170 Last administered on 09/29/18 23:50; Admin Dose 0.1 MG; Start 09/23/18 at 13:30 Guaifenesin/ Dextromethorphan (Robitussin Dm Liquid Cup) 10 ml Q6 PRN PO COUGH Last administered on 09/26/18 11:49; Admin Dose 10 ML; Start 09/23/18 at 13:30 Patient Own Medication 1 ea BID LEFT EYE Last administered on 10/02/18 20:17; Admin Dose 1 EA; Start 09/23/18 at 21:00 Labetalol HCl (Normodyne) 400 mg TID PO Last administered on 10/02/18 20:14; Admin Dose 400 MG; Start 09/29/18 at 09:00 Lactulose (Enulose) 20 gm DAILY PO Last administered on 10/02/18at 08:40; Admin Dose 20 GM; Start 09/30/18 at 14:00 TERI HALL Oct 03, 2018 08:11
[2018-10-03] MEDS: NITROGLYCERIN 0.2 MG/HR PATCH TRANSDERM SCH (08:37)
[2018-10-03] MEDS: LACTULOSE 30ML CUP PO SCH (08:39)
[2018-10-03] MEDS: FAMOTIDINE 20 MG TAB PO SCH (08:39)
[2018-10-03] MEDS: SEVELAMER CARBONATE 0.8 GM PKT PO SCH ×3 (08:39→17:12)
[2018-10-03] MEDS: TAMSULOSIN (SR) 0.4 MG CAP PO SCH (08:39)
[2018-10-03] MEDS: NIFEdipine (XL) 60 MG TAB PO SCH ×2 (08:40→20:59)
[2018-10-03] MEDS: LABETALOL 200 MG TAB PO SCH ×3 (08:40→20:59)
[2018-10-03] MEDS: ARTIFICIAL TEARS 15 ML OPH BOTH EYES SCH ×4 (08:41→20:57)
[2018-10-03] MEDS: ATROPINE SULFATE 1% LEFT EYE SCH ×2 (08:41→20:57)
[2018-10-03] MEDS: MINOXIDIL 2.5 MG TAB PO SCH ×2 (08:41→20:58)
--- NOTE | 2018-10-03 09:34 | PN ---
DATE: 10/02/2018 SUBJECTIVE: Follow up on abdominal pain, hypertensive urgency, pancytopenia, coronary artery disease , and end-stage renal disease. The patient is breathing comfortably at rest. He denies any chest pa in. Abdominal pain has improved. The patient did not have any nausea or vomiting today. No reporte d fever or chills. No reported bleeding from any site. No reported focal weakness. The patient is legally blind. PHYSICAL EXAMINATION: GENERAL: The patient is awake, alert. VITAL SIGNS: Temperature 98.7, pulse 67, respirations 18, blood pressure 102/59, O2 saturation 94%. HEENT: No eye discharge, left corneal opacity, unchanged. Oropharynx is clear. NECK: Supple, no mass, no thyromegaly. CHEST: Diminished air entry at bases. No retractions. CARDIOVASCULAR: Regular rate and rhythm. S1, S2 normal. ABDOMEN: Soft, nondistended, nontender, no palpable mass. No pulsatile mass. EXTREMITIES: No edema. NEUROLOGIC: The patient is awake, alert, follows simple commands. No gross focal deficit. LABORATORY DATA: Sodium 137, potassium 5.8, BUN 67, creatinine 9.6, glucose 84, AST 17, ALT 15, kiley line phosphatase 54, albumin 4.2. IMPRESSION AND PLAN: 1. Hyperkalemia with end-stage renal disease. The patient is being followed by Dr. Rodríguez and the pl an is to do hemodialysis on 10/03/2018. 2. Hypertension. Blood pressure well controlled with the nifedipine, Labetalol, clonidine and Minox audrey. 3. Pancytopenia. No acute issue. Outpatient hematology/oncology followup with Dr. Ramirez. The hammad ent had been seen by her in the past. 4. Anemia of chronic kidney disease. The patient's last hemoglobin is 11, we will continue to monit or platelet. The patient's last hemoglobin is 10.9. The patient will be given Procrit on as needed. Dictated By: HARMONY PETERSON MD AB/NTS Conf#: [id number] DID#: [id number] CC: VALERIA RODRÍGUEZ MD; HARMONY PETERSON MD;*EndCC*
[2018-10-03] MEDS ORDERED: NIFE60TA2 PO (12:14)
[2018-10-03] MEDS ORDERED: PANT40TA3 PO (12:14)
[2018-10-03] MEDS ORDERED: CLON0.2T12 PO (12:14)
[2018-10-03] MEDS ORDERED: MINO2.5T16 PO (12:14)
[2018-10-03] MEDS ORDERED: LABE200T25 PO (12:14)
[2018-10-03] MEDS ORDERED: NITR1PAT47 TRANSDERM (12:14)
[2018-10-03] MEDS ORDERED: METO5TAB58 PO (12:14)
--- NOTE | 2018-10-03 14:50 | CONS ---
Assessment/Plan Assessment/Plan Assessment/Plan (Daily) 1. acute hyperkalemia - Improved 2. Hypertensive emergency s/p NTG drip- now on Multiple antihypertensives 3. ESRD on HD MWF with acute hyperklaemia and acute fluid overload 4. Possible Cholecysitits 5. H/o CAD s/p CABG 6. H/O HTN 7. H/o HL 8. H/o DM II Plan: plan for Hd today , will keep pt on MWF schedule Nifedipine 60mg pO BID , labetalol 400mg BID, Clonidine 0.2 mg TID,Minoxidil 5 mg BID, IV hydralazine prn , PO clonidine prn will follow up Consultation Date/Type/Reason Admit Date/Time Sep 19, 2018 at 06:33 Initial Consult Date 09/19/18 Type of Consult NEPHROLOGY Requesting Provider: COREY SARAVIA Date/Time of Note DATE: 10/03/18 TIME: 14:50 24 HR Interval Summary Free Text/Dictation plan for HD today, then possible d/c plan today Exam/Review of Systems Exam Vitals Vital Signs Date Temp Pulse Resp B/P (MAP) Pulse Ox O2 O2 Flow FiO2 Time Delivery Rate 10/03/18 65 12:01 10/03/18 98.2 16 155/72 94 10:55 (99) 10/01/18 Room Air 04:22 Intake and Output 10/02/18 10/02/18 10/03/18 1515:00 23:00 07:00 IntakeIntake Total 1150 ml 200 ml BalanceBalance 1150 ml 200 ml Exam Constitutional: alert, distress Respiratory: clear to auscultation, normal air movement, diminished breath sounds Cardiovascular: regular rate and rhythm, nl pulses Gastrointestinal: soft, NT, ND,BS+ Musculoskeletal: nl extremities to inspection, other Extremities: normal pulses, other (Chest permacath HD catheter ) 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: OBSTETRICS TECH II-XII intact, nl mental status, nl speech, nl strength Results Result Diagram: 09/29/18 0529 10/02/18 0532 Results 24hrs Laboratory Tests Test 10/02/18 17:18 10/02/18 20:19 10/03/18 07:40 10/03/18 12:15 Bedside Glucose 133 172 114 166 Medications Medication Current Medications Heparin Sodium (Porcine) (Heparin (1000 Units/ml)) 4,000 unit AFTER DIALYSIS CATHETER Last administered on 09/30/18at 21:36; Admin Dose 3,800 UNIT; Start 09/19/18 at 07:30 Mannitol 50 ml @ 50 mls/5 min WITH DIALYSIS PRN IV DISEQUILIBRIUM SYNDROME PPX; Start 09/19/18 at 07:30 Albumin Human 100 ml @ 100 mls/hr WITH DIALYSIS PRN IV SBP <90 DURING DIALYSIS; Start 09/19/18 at 07:30 Sodium Chloride (NS) -To prime the dialy... DIRECTED FOR HD PRN IV HD; Start 09/19/18 at 07:30 Acetaminophen (Tylenol Tab) 650 mg Q6 PRN PO .MILD PAIN 1-3 OR TEMP Last administered on 09/28/18at 20:26; Admin Dose 650 MG; Start 09/19/18 at 10:30 Ondansetron HCl (Zofran Inj) 4 mg Q4 PRN IV NAUSEA/VOMITING Last administered on 09/22/18at 21:11; Admin Dose 4 MG; Start 09/19/18 at 10:30 Diagnostic Test (Pha) (Accu-Chek) 1 ea 02 XX Last administered on 09/24/18at 01:19; Admin Dose 1 EA; Start 09/20/18 at 02:00 Insulin Aspart (Novolog Insulin Pen) NOVOLOG *MILD* ALGORITHM WITH MEALS BEDTIME SC Last administered on 10/03/18at 12:24; Admin Dose 1 UNIT; Start 09/19/18 at 11:30 Miscellaneous Information 1 ea NOTE XX ; Start 09/19/18 at 11:00 Glucose (Glutose) 15 gm Q15M PRN PO DECREASED GLUCOSE; Start 09/19/18 at 11:00 Glucose (Glutose) 22.5 gm Q15M PRN PO DECREASED GLUCOSE; Start 09/19/18 at 11:00 Dextrose (D50w Syringe) 25 ml Q15M PRN IV DECREASED GLUCOSE; Start 09/19/18 at 11:00 Dextrose (D50w Syringe) 50 ml Q15M PRN IV DECREASED GLUCOSE; Start 09/19/18 at 11:00 Glucagon (Glucagen) 1 mg Q15M PRN IM DECREASED GLUCOSE; Start 09/19/18 at 11:00 Glucose (Glutose) 15 gm Q15M PRN BUCCAL DECREASED GLUCOSE; Start 09/19/18 at 11:00 Famotidine (Pepcid) 20 mg DAILY PO Last administered on 10/03/18 08:39; Admin Dose 20 MG; Start 09/19/18 at 13:00 Nifedipine (Procardia Xl) 60 mg BID PO Last administered on 10/03/18 08:40; Admin Dose 60 MG; Start 09/19/18 at 12:30 Sevelamer Carbonate (Renvela) 0.8 gm WITH MEALS PO Last administered on 10/03/18 12:16; Admin Dose 0.8 GM; Start 09/19/18 at 17:35 Tamsulosin HCl (Flomax) 0.4 mg DAILY PO Last administered on 10/03/18 08:39; Admin Dose 0.4 MG; Start 09/19/18 at 12:30 Minoxidil (Loniten) 5 mg BID PO Last administered on 10/03/18 08:41; Admin Dose 5 MG; Start 09/19/18 at 13:30 Metoclopramide HCl (Reglan) 5 mg Q6 IV Last administered on 10/03/18 12:17; Admin Dose 5 MG; Start 09/20/18 at 00:00 Eye Lubricant (Artificial Tears Oph) 2 drop QID BOTH EYES Last administered on 10/03/18 12:16; Admin Dose 2 DROP; Start 09/20/18 at 20:00 Nitroglycerin (Nitroglycerin 0.2 Mg/Hr) 1 patch DAILY TRANSDERM Last administered on 10/03/18 08:37; Admin Dose 1 PATCH; Start 09/22/18 at 11:30 Clonidine (Catapres) 0.2 mg TID PO Last administered on 10/03/18 12:17; Admin Dose 0.2 MG; Start 09/23/18 at 09:00 Clonidine (Catapres) 0.1 mg Q4H PRN NGT SBP > 170 Last administered on 09/29/18 23:50; Admin Dose 0.1 MG; Start 09/23/18 at 13:30 Guaifenesin/ Dextromethorphan (Robitussin Dm Liquid Cup) 10 ml Q6 PRN PO COUGH Last administered on 09/26/18 11:49; Admin Dose 10 ML; Start 09/23/18 at 13:30 Patient Own Medication 1 ea BID LEFT EYE Last administered on 4/15/19at 08:41; Admin Dose 1 EA; Start 09/23/18 at 21:00 Labetalol HCl (Normodyne) 400 mg TID PO Last administered on 10/03/18at 12:16; A dmin Dose 400 MG; Start 09/29/18 at 09:00 Lactulose (Enulose) 20 gm DAILY PO Last administered on 10/03/18 08:39; Admin Dose 20 GM; Start 09/30/18 at 14:00 VALERIA RODRÍGUEZ MD Oct 03, 2018 14:50
--- NOTE | 2018-10-03 16:02 | CONS ---
Consult Date/Type/Reason Admit Date/Time Sep 19, 2018 at 06:33 Initial Consult Date 09/23/18 Type of Consultation: cv Requesting Provider: COREY SARAVIA Date/Time of Note DATE: 10/03/18 TIME: 16:02 Subjective Interventional cardiology follow-up progress note Subjective: Discussed with the staff and Telemetry was reviewed. Patient has remains normal sinus rhythm Patient with no chest pain or pressure no palpitation no shortness of breath now. His blood pressure has been stable now Objective: General: no acute distress HEENT: NC/AT. 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 no stridor. CV: RRR. systolic murmur; no gallop or rubs. PULM: no wheezing or rhonchi. GI: SOFT, NT, ND, no rebound or guarding Extremity: trace B/L LE edema. no clubbing. neuro: awake and alert, Psych: calm and pleasant rectal: deferred : normal Objective Vitals Vital Signs Date Temp Pulse Resp B/P (MAP) Pulse Ox O2 O2 Flow FiO2 Time Delivery Rate 10/03/18 97.5 61 16 124/58 95 15:21 (80) 10/01/18 Room Air 04:22 Intake and Output 10/02/18 10/02/18 10/03/18 1515:00 23:00 07:00 IntakeIntake Total 1150 ml 200 ml BalanceBalance 1150 ml 200 ml Results/Medications Result Diagram: 09/29/18 0529 10/02/18 0532 Results 24 hrs Laboratory Tests Test 10/02/18 17:18 10/02/18 20:19 10/03/18 07:40 10/03/18 12:15 Bedside Glucose 133 172 114 166 Home Meds Active Scripts Metoclopramide* (Reglan*) 5 Mg Tablet, 5 MG PO AC MEALS for 14 Days, TAB Prov:MARGARITO DAMICO 10/03/18 Pantoprazole* (Protonix*) 40 Mg Tablet.dr, 40 MG PO DAILY for 30 Days, TAB Prov:MARGARITO DAMICO 10/03/18 Nitroglycerin* (Nitroglycerin* Patch) 0.2 mg/hr Patch, 1 PATCH TRANSDERM DAILY for 30 Days Prov:MARGARITO DAMICO 10/03/18 Clonidine Hcl* (Catapres*) 0.2 Mg Tablet, 0.2 MG PO TID for 30 Days, TAB Prov:MARGARITO DAMICO 10/03/18 Labetalol Hcl* (Labetalol Hcl*) 200 Mg Tablet, 400 MG PO TID for 30 Days, TAB Prov:MARGARITO DAMICO 10/03/18 Nifedipine (Procardia Xl) 60 Mg Tab.er.24, 60 MG PO BID for 30 Days, TAB Prov:MARGARITO DAMICO 10/03/18 Minoxidil* (Lonitin*) 2.5 Mg Tab, 5 MG PO BID for 30 Days, TAB Prov:MARGARITO DAMICO 10/03/18 Labetalol Hcl* (Labetalol Hcl*) 200 Mg Tablet, 400 MG PO BID for 30 Days, TAB Prov:MARGARITO DAMICO 08/25/18 Reported Medications Isosorbide Mononitrate* (Isosorbide Mononitrate*) 60 Mg Tab.er.24h, 60 MG PO DAILY, TAB 08/15/18 Losartan Potassium* (Losartan Potassium*) 50 Mg Tablet, 50 MG PO DAILY, TAB 08/15/18 Famotidine* (Famotidine*) 20 Mg Tablet, 20 MG PO BID, #60 TAB 08/15/18 Atropine Sulfate/0.9 %Sod Chlr (Atropine 0.01%-Ns Eye Drops) 10 Ml Drops, 15 ML OP BID, BOTTLE 08/15/18 Tamsulosin Hcl* (Tamsulosin Hcl*) 0.4 Mg Cap.er.24h, 0.4 MG PO DAILY, CAP 08/15/18 Clonidine Hcl* (Clonidine Hcl*) 0.1 Mg Tab, 0.2 MG PO BID PRN for ELEVATED BLOOD PRESSURE, TAB 08/15/18 Sevelamer Carbonate* (Renvela*) 800 Mg Tablet, 0.8 GM PO WITH MEALS, TAB 08/15/18 Medications Current Medications Heparin Sodium (Porcine) (Heparin (1000 Units/ml)) 4,000 unit AFTER DIALYSIS CATHETER Last administered on 09/30/18at 21:36; Admin Dose 3,800 UNIT; Start 09/19/18 at 07:30 Mannitol 50 ml @ 50 mls/5 min WITH DIALYSIS PRN IV DISEQUILIBRIUM SYNDROME PPX; Start 09/19/18 at 07:30 Albumin Human 100 ml @ 100 mls/hr WITH DIALYSIS PRN IV SBP <90 DURING DIALYSIS; Start 09/19/18 at 07:30 Sodium Chloride (NS) -To prime the dialy... DIRECTED FOR HD PRN IV HD; Start 09/19/18 at 07:30 Acetaminophen (Tylenol Tab) 650 mg Q6 PRN PO .MILD PAIN 1-3 OR TEMP Last administered on 09/28/18at 20:26; Admin Dose 650 MG; Start 09/19/18 at 10:30 Ondansetron HCl (Zofran Inj) 4 mg Q4 PRN IV NAUSEA/VOMITING Last administered on 09/22/18 21:11; Admin Dose 4 MG; Start 09/19/18 at 10:30 Diagnostic Test (Pha) (Accu-Chek) 1 ea 02 XX Last administered on 09/24/18at 01:19; Admin Dose 1 EA; Start 09/20/18 at 02:00 Insulin Aspart (Novolog Insulin Pen) NOVOLOG *MILD* ALGORITHM WITH MEALS BEDTIME SC Last administered on 10/03/18at 12:24; Admin Dose 1 UNIT; Start 09/19/18 at 11:30 Miscellaneous Information 1 ea NOTE XX ; Start 09/19/18 at 11:00 Glucose (Glutose) 15 gm Q15M PRN PO DECREASED GLUCOSE; Start 09/19/18 at 11:00 Glucose (Glutose) 22.5 gm Q15M PRN PO DECREASED GLUCOSE; Start 09/19/18 at 11:00 Dextrose (D50w Syringe) 25 ml Q15M PRN IV DECREASED GLUCOSE; Start 09/19/18 at 11:00 Dextrose (D50w Syringe) 50 ml Q15M PRN IV DECREASED GLUCOSE; Start 09/19/18 at 11:00 Glucagon (Glucagen) 1 mg Q15M PRN IM DECREASED GLUCOSE; Start 09/19/18 at 11:00 Glucose (Glutose) 15 gm Q15M PRN BUCCAL DECREASED GLUCOSE; Start 09/19/18 at 11:00 Famotidine (Pepcid) 20 mg DAILY PO Last administered on 10/03/18at 08:39; Admin Dose 20 MG; Start 09/19/18 at 13:00 Nifedipine (Procardia Xl) 60 mg BID PO Last administered on 10/03/18at 08:40; Admin Dose 60 MG; Start 09/19/18 at 12:30 Sevelamer Carbonate (Renvela) 0.8 gm WITH MEALS PO Last administered on 10/03/18 12:16; Admin Dose 0.8 GM; Start 09/19/18 at 17:35 Tamsulosin HCl (Flomax) 0.4 mg DAILY PO Last administered on 10/03/18 08:39; Admin Dose 0.4 MG; Start 09/19/18 at 12:30 Minoxidil (Loniten) 5 mg BID PO Last administered on 10/03/18 08:41; Admin Dose 5 MG; Start 09/19/18 at 13:30 Metoclopramide HCl (Reglan) 5 mg Q6 IV Last administered on 10/03/18 12:17; Admin Dose 5 MG; Start 09/20/18 at 00:00 Eye Lubricant (Artificial Tears Oph) 2 drop QID BOTH EYES Last administered on 10/03/18 12:16; Admin Dose 2 DROP; Start 09/20/18 at 20:00 Nitroglycerin (Nitroglycerin 0.2 Mg/Hr) 1 patch DAILY TRANSDERM Last administered on 10/03/18 08:37; Admin Dose 1 PATCH; Start 09/22/18 at 11:30 Clonidine (Catapres) 0.2 mg TID PO Last administered on 10/03/18 12:17; Admin Dose 0.2 MG; Start 09/23/18 at 09:00 Clonidine (Catapres) 0.1 mg Q4H PRN NGT SBP > 170 Last administered on 09/29/18 23:50; Admin Dose 0.1 MG; Start 09/23/18 at 13:30 Guaifenesin/ Dextromethorphan (Robitussin Dm Liquid Cup) 10 ml Q6 PRN PO COUGH Last administered on 09/26/18 11:49; Admin Dose 10 ML; Start 09/23/18 at 13:30 Patient Own Medication 1 ea BID LEFT EYE Last administered on 10/03/18 08:41; Admin Dose 1 EA; Start 09/23/18 at 21:00 Labetalol HCl (Normodyne) 400 mg TID PO Last administered on 10/03/18 12:16; Admin Dose 400 MG; Start 09/29/18 at 09:00 Lactulose (Enulose) 20 gm DAILY PO Last administered on 10/03/18at 08:39; Admin Dose 20 GM; Start 09/30/18 at 14:00 Assessment/Plan Hospital Course (Demo Recall) 1. Hypertensive urgency/resistant hypertension: improved now 2. History of coronary artery disease 3. History of most likely [place] and coronary artery bypass graft 4. Renal failure on dialysis 5. Pulmonary vascular congestion/fluid overload 6. Diabetes 7. Dyslipidemia 8. Hyperkalemia 9. Pulmonary nodule 10. severe hyper K: corrected with 11. Pneumonia recently treated with abx Recommendations: Continue with the Procardia. cont labetalol as tolerated Continue with minoxidil Clonidine will be continued as a as needed as well. Lipid panel reviewed and showed LDL at goal of less than 70 Hemodialysis as per renal Thank you for his referral. We will continue to follow along with you NAHUN RUSSELL MD [facility] NAHUN RUSSELL MD Oct 03, 2018 16:02
[2018-10-03] MEDS: HEPARIN 1000 UNITS/ML 10 ML INJ CATHETER SCH (19:41)
== END 2018-10-03 22:10 | disposition home or self-care (01) | DRG 640 ==
LOC: E/R 04:29 → ICU 06:33 → EDBEDREQSVC 08:08 → EDBEDREQ 08:08 → 6WM 09-24 15:27
PROVIDERS: ADMIT Internal Medicine; ATTEND Internal Medicine
PROC: 5A1D70Z Performance of Urinary Filtration, Intermittent, Less than 6 Hours Per Day (ICD-10-PCS; principal; 2018-09-19)
DX: E87.5 Hyperkalemia (principal); N18.6 End stage renal disease; I16.1 Hypertensive emergency; I12.0 Hypertensive chronic kidney disease with stage 5 chronic kidney disease or end stage renal disease; D61.818 Other pancytopenia; K81.0 Acute cholecystitis; I25.10 Atherosclerotic heart disease of native coronary artery without angina pectoris; E11.9 Type 2 diabetes mellitus without complications; H54.8 Legal blindness, as defined in USA; R91.8 Other nonspecific abnormal finding of lung field; E87.70 Fluid overload, unspecified; E87.2 Acidosis; Z95.1 Presence of aortocoronary bypass graft; Z99.2 Dependence on renal dialysis; Z22.322 Carrier or suspected carrier of Methicillin resistant Staphylococcus aureus
CPT/HCPCS: 36415; 71045; 74176; 76705; 78226; 80048; 80053; 82962; 83690; 84132; 84484; 85025; 86480; 86635; 86706; 87081; 87340; 90935; 93005; 94664; 96374; 96375; A9537; J1644; J1815; J2270; J2405; J2543; J2765